=== PATIENT | female | born 1960 | race Caucasian/White ===

== ENCOUNTER 2023-03-19 08:41 | Outpatient (OUT) | payer BC, SELFPAY ==
--- NOTE | 2023-03-19 08:43 | VEIN_ITS ---
Patient: MAVIS PICKARD Exam Date: 03/19/2023 : 1960 Gender:F Ordering : DAVID AMAYA Admission #: [id number] Family : Order #: [id number] CLICK HERE TO VIEW EXAM RADIOLOGY REPORT PROCEDURE: VC EXT VENOUS REFLUX BRO LMTD COMPARISON: None. INDICATIONS: I83.813 Pain due to varicose veins of bilateral legs TECHNIQUE: Duplex imaging of the lower extremity to assess the deep and superficial venous system for the presence of deep or superficial venous incompetence and to document the location and severity of disease. The study includes evaluation of the great saphenous vein (GSV), anterior accessory saphenous vein (AASV) and small saphenous vein (SSV). Patient scanned in reverse Trendelenburg and standing. FINDINGS: RIGHT LOWER EXTREMITY: Saphenofemoral Junction Reflux: Yes 8.3mm 3.4 sec GSV: Diam (mm) Reflux/ Time (sec) Proximal Thigh 8.1 Yes 1.0 Mid Thigh 9.9 Yes 3.7 Distal Thigh 4.8 Yes 0.3 Prox Calf 4.3 Yes 1.4 Mid Calf 4.4 Yes 0.7 Saphenopopliteal Junction Reflux: 5.9mm Yes 0.6 SSV: Proximal Calf 5.7 Yes 0.5 Mid Calf 4.3 Yes 0.2 AASV: Proximal Thigh 6.5 Yes 0.7 Mid Thigh 8.0 Yes 3.6 Distal Thigh Thrombi: No acute or chronic thrombus. Compressibility: Normal. Flow: Mild to moderate deep venous reflux. Preforator: Mid medial lower leg 5.6 mm with 0.7s reflux. Mid medial thigh 8.7 mm with 3.8s reflux. Dist med lower leg 3.7 mm with 2.0s reflux. Tech Note: Incompetent varicose vein distal medial lower leg posterior to wound 12.3 mm with 1.7s reflux. Proximal medial lower leg varicose vein measures 10.7 mm with 3.8s reflux. Varicose vein mid lateral lower leg measures 4.5 mm with 0.6s reflux. Proximal lateral lower leg varicose vein measures 9.1 mm with 1.2s reflux. Tortuous varicose vein arising from SFJ. LEFT LOWER EXTREMITY: Saphenofemoral Junction Reflux: Yes 8.2 mm 1.4 sec GSV: Diam (mm) Reflux/Time (sec) Proximal Thigh 7.4 Yes 2.2 Mid Thigh 4.3 Yes 2.4 Distal Thigh 5.2 Yes 0.7 Prox Calf 4.4 Yes 2.4 Mid Calf 3.3 Yes 0.8 Saphenopopliteal Junction Relux: 4.1 mm Yes 0.3 SSV: Proximal Calf 4.4 Yes 0.3 Mid Calf 3.4 No AASV: Proximal Thigh 5.9 Yes 3.1 Mid Thigh 3.6 Yes 0.3 Distal Thigh Thrombi: No acute or chronic thrombus. Compressibility: Normal. Flow: Mild deep venous reflux. 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 Tech Note: Incompetent varicose vein proximal medial lower leg measures 4.4 mm with 0.6s reflux. Distal anterior thigh varicose vein measures 3.1 mm with 0.3s reflux. Lateral knee varicose vein measures 3.4 mm with 2.0s reflux. CONCLUSION: 1. Abnormally dilated and incompetent bilateral great saphenous veins, bilateral anterior accessory saphenous veins. 2. Multiple abnormally dilated and incompetent branch saphenous varicosities. 3. Bilateral prominent and incompetent office support specialist veins. Dictated by: Abrahan Danielson M.D. on 03/19/2023 at 10:00 Approved by: Abrahan Danielson M.D. on 03/19/2023 at 10:31
--- NOTE | 2023-03-19 08:43 | VEIN_ITS ---
Patient: MAVIS PICKARD Exam Date: 03/19/2023 : 1960 Gender:F Ordering : DAVID AMAYA Admission #: [id number] Family : DR JEFFREY REYNA M.D. Order #: [id number] CLICK HERE TO VIEW EXAM RADIOLOGY REPORT PROCEDURE: FACILITY EST COMPREHENSIVE VEIN CENTER - OFFICE VISIT INITIAL COMPARISON: None. PROGRESS NOTES: [age] year old female who presents with a 15 year history of aching, burning sensation, leg heaviness, dull pain, dilated bulging veins, edema, and reoccurring wound. The patient's right leg symptoms are worse than the left. There has been a progression of symptoms. This increases with prolonged leg dependency. The patient describes an improvement with rest, elevation, exercise, sports oculus, and [id number] medications. The patient denies any signs and symptoms to suggest arterial ischemia. The patient describes a family history of varicose veins. The patient has drinking and smoking history of : Occasional alcohol consumption; no tobacco use. Patient has a past medical history significant for asthma, type 2 diabetes mellitus. The patient denies a history of deep venous thrombus or pulmonary embolus. See separate history and physical for medication list. No prior treatment for varicose or spider veins. Current long-term use of compression stockings. After review of nurse notes, history and physical exam I discussed at length the pathophysiology of venous hypertension and possible treatments, therapies and strategies available. We discussed at length the importance of elevating the lower extremities above the level of the heart, increased physical activity and compression stocking use. Ultrasound venous reflux study performed today was discussed at length with the patient. The report demonstrates markedly dilated and incompetent bilateral great saphenous veins, bilateral anterior accessory saphenous veins, right leg pizza chef veins, and numerous branch saphenous varicosities bilaterally. PHYSICAL EXAM: The right leg demonstrates numerous large varicosities, multiple spider veins, is scabbed over reoccurring wound just above ankle; no open ulceration, mild edema, mild skin discoloration. The left leg demonstrates several varicosities, several spider veins, no ulceration, mild edema, no skin discoloration. Both thighs, legs and feet were symmetrically warm to the touch. Good posterior tibial and dorsalis pedis pulses were present bilaterally. VEIN/[facility] Facility EST Comprehensive IMPRESSION: 1. Bilateral lower extremity venous insufficiency 2. Bilateral lower extremity varicose veins 3. Mild bilateral lower extremity subcutaneous edema 4. No flow significant arterial disease 5. CEAP C5, EC, AP, [place] PLAN: 1. Continued use of compression stockings 2. Elevated legs and increased physical activity symptomatic relief 3. Endovenous laser ablation of right great saphenous, left great saphenous, right anterior accessory saphenous, left anterior accessory saphenous, right pizza chef veins if not closed during treatment of GSV or SSV. 4. Microfoam chemical lesion of incompetent branch saphenous varicosities bilaterally. 5. Sclerotherapy of reticular and spider veins bilaterally. Nurse notes, history and physical were reviewed and confirmed, see attached forms. The nurse was present throughout the physical exam and consultation Dictated by: Abrahan Danielson M.D. on 03/19/2023 at 10:39 Approved by: Abrahan Danielson M.D. on 03/19/2023 at 10:47
== END 2023-03-19 08:42 | disposition home or self-care (01) ==
PROVIDERS: PCP Nurse Practitioner Adult Health; Visit Provider Nurse Practitioner Adult Health
DX: I83.813 Varicose veins of bilateral lower extremities with pain (principal)
CPT/HCPCS: 93970; G0463

== ENCOUNTER 2023-04-04 07:23 | Outpatient (OUT) | payer BC, SELFPAY ==
--- NOTE | 2023-04-04 07:36 | VEIN_ITS ---
[address] [address] Patient Name: MAVIS PICKARD MRN: [id number] date: 1960 Sex: F Assigned Patient Location: Current Patient Location: Accession/Order Number: [id number] Exam Date: 04/04/2023 07:40 Report Date: 04/04/2023 08:31 At the request of: JEFFREY REYNA Procedure: VC Endovenous Ablation 1VeinRT EXAMINATION: VC Endovenous Ablation 1Vein, right great saphenous vein HISTORY: I83.813 Pain due to varicose veins of bilateral legs COMPARISON: No relevant comparison available. TECHNIQUE: The risks and benefits of the procedure had been previously discussed, and were rediscussed at length. Informed written consent was obtained. Alie Oakes and Brandt Delacruz assisted. Time out procedure was performed. The right lower extremity was prepared and draped in the usual sterile fashion to allow knee flexion in the sterile field. Duplex ultrasound probe was draped in a sterile cover, sterile transmission gel was used. Venous mapping was performed with the areas of dilation and large tributaries marked. The total length was 20 cm from the entry distal thigh to 3 cm below the saphenofemoral junction. The diameter of the greater saphenous vein ranged from 8-10 mm. A 30 gauge needle and 1% buffered lidocaine was used to anesthetize the entry site. A 4 mm incision was made with a scalpel and the saphenous vein was entered percutaneously under direct ultrasound guidance with a micropuncture set, a single stick was successful in gaining access. A micro-guide wire was inserted and the needle removed. A micro-set including a dilator was inserted over the microwire and the needle and dilator were removed. A 0.018 guide wire was inserted through the micro-set and threaded through the saphenous vein to the saphenofemoral junction. The dilator was removed and an introducer sheath was inserted over the wire until the end of the sheath entered the saphenofemoral junction. The dilator and wire were removed and the 600 micron fiber was introduced and placed and positioned so that it extended beyond the sheath and was 3 cm peripheral to the saphenofemoral femoral junction. Final position of the fiber was determined by ultrasound guidance and duplex imaging. Tumescent anesthetic was delivered by ultrasound guidance. 150 cc of fluid was delivered along the entire course of the saphenous vein. The solution consisted of 1000 cc of normal saline with 40 mL of 1% lidocaine and 20 mL of sodium bicarbonate. A final positioning check was made. The energy source was turned on by means of the foot pedal and the fiber and sheath were withdrawn. The total number of Joules delivered was 1146. The laser was active for 143 seconds under continuous pulse, average laser use of 8 J. Laser start time 8:19 AM 04/04/2023 . Laser stop time 8:21 AM 04/04/2023 . A duplex ultrasound revealed compressibility and flow at the saphenofemoral junction immediately after the procedure. Hemostasis at the access site was achieved. The skin incision of the saphenous vein was closed with a 4 x 4. A compression stocking was applied. Postop instructions were given. A follow up appointment was recommended and scheduled. The patient tolerated the procedure well and was discharged in good condition . VEIN/VC Endovenous Ablation 1VeinRT IMPRESSION: Technically successful endovenous laser ablation of the right great saphenous vein Electronically authenticated by: JEFFREY REYNA Date: 04/04/2023 08:31
[2023-04-04] MEDS: 0.9 % SODIUM CHLORIDE 500 ML, LIDOCAINE HCL 20 ML, SODIUM BICARBONATE 10 MEQ INJ (07:55)
[2023-04-04] MEDS: LIDOCAINE HCL 10 ML, SODIUM BICARBONATE 1 MEQ INJ (07:55)
== END 2023-04-04 07:24 | disposition home or self-care (01) ==
LOC: VC 07:23
PROVIDERS: PCP Nurse Practitioner Adult Health; Visit Provider Radiology Diagnostic Radiology
DX: I83.813 Varicose veins of bilateral lower extremities with pain (principal)
CPT/HCPCS: 36478

== ENCOUNTER 2023-04-09 07:32 | Outpatient (OUT) | payer BC, SELFPAY ==
--- NOTE | 2023-04-09 | VEIN_ITS ---
Patient: MAVIS PICKARD Exam Date: 04/09/2023 : 1960 Gender:F Ordering : DR MAGEN PRICE M.D. Admission #: [id number] Family : Order #: [id number] CLICK HERE TO VIEW EXAM RADIOLOGY REPORT PROCEDURE: VC EXT VENOUS RT LMTD COMPARISON: None. INDICATIONS: Phlebitis of superficial veins of rt lower extremity I80.01 TECHNIQUE: Lower extremity tsang scale and Duplex Doppler evaluation of the deep venous system from the inguinal ligament through the calf veins. FINDINGS: REGION: Right lower extremity. THROMBI: Negative for DVT. Heat induced thrombus in right GSV 2.4 cm from SFJ and extends to mid thigh just distal to customer service rep. COMPRESSIBILITY: Non-compressible segments corresponding to thrombus. FLOW: Absent flow corresponding to thrombus CONCLUSION: Post ablation occlusion of the right great saphenous vein with heat induced thrombus 2.4 cm from the saphenofemoral junction Dictated by: Magen Price MD on 04/09/2023 at 07:51 Approved by: Magen Price MD on 04/09/2023 at 07:52
--- NOTE | 2023-04-09 | VEIN_ITS ---
Patient: MAVIS PICKARD Exam Date: 04/09/2023 : 1960 Gender:F Ordering : DR MAGEN PRICE M.D. Admission #: [id number] Family : Order #: [id number] CLICK HERE TO VIEW EXAM RADIOLOGY REPORT PROCEDURE: VC FACILITY EST LMTD VEIN CENTER - OFFICE VISIT FOLLOW UP COMPARISON: None. PROGRESS NOTES: The patient reports some mild discomfort of the medial right thigh following intravenous laser ablation of right great saphenous vein. The patient did not require oral analgesics. The patient has worn her compression stocking. The patient has followed our recommendations to walk 20-30 minutes once or twice per day since the procedure. Physical exam demonstrates 3 areas of mild bruising ranging 1-2 cm in diameter along the medial right thigh likely related to insertion site and tumescent injection. No areas of erythema or warmth. No evidence of cellulitis, thrombophlebitis or active ulceration Review of the ultrasound performed the same day demonstrates occlusive thrombus extending throughout the treated right great saphenous vein with heat induced thrombus 2.4 cm from the saphenofemoral junction. The patient expressed a desire to proceed with treatment of incompetent left great saphenous vein. VEIN/VC Facility EST LMTD IMPRESSION: 1. Successful ablation of the right great saphenous vein 2. Persistent incompetent left great saphenous vein. PLAN: Intravenous laser ablation left great saphenous vein Nurse notes, history and physical were reviewed and confirmed, see attached forms. The nurse was present throughout the physical exam and consultation Dictated by: Magen Price MD on 04/09/2023 at 07:56 Approved by: Magen Price MD on 04/09/2023 at 07:58
== END 2023-04-09 07:33 | disposition home or self-care (01) ==
LOC: VC 07:32
PROVIDERS: PCP Nurse Practitioner Adult Health; Visit Provider Radiology Diagnostic Radiology
DX: I80.01 Phlebitis and thrombophlebitis of superficial vessels of right lower extremity (principal)
CPT/HCPCS: 93971; G0463

== ENCOUNTER 2023-04-23 07:33 | Outpatient (OUT) | payer BC, SELFPAY ==
--- NOTE | 2023-04-23 07:34 | VEIN_ITS ---
The [address] [address] Patient Name: MAVIS PICKARD MRN: [id number] date: 1960 Sex: F Assigned Patient Location: Current Patient Location: Accession/Order Number: [id number] Exam Date: 04/23/2023 07:30 Report Date: 04/23/2023 08:43 At the request of: JEFFREY REYNA Procedure: VC Endovenous Ablation 1VeinLT EXAMINATION: VC Endovenous Ablation 1VeinLT HISTORY: Pain due to varicose veins of bilateral legs I83.813 The risks and benefits of the procedure had been previously discussed, and were rediscussed at length. Informed written consent was obtained. Brandt Delacruz RN and Alie Tucker RDMS assisted. Time out procedure was performed. The left lower extremity was prepared and draped in the usual sterile fashion to allow knee flexion in the sterile field. Duplex ultrasound probe was draped in a sterile cover, sterile transmission gel was used. Venous mapping was performed with the areas of dilation and large tributaries marked. The total length was 63 cm from the entry 3 cm above the ankle to 3 cm below the Saphenofemoral junction. The diameter of the left great saphenous vein ranged from 7.4 mm. A 30 gauge needle and 1% buffered lidocaine was used to anesthetize the entry site. A 4 mm incision was made with a scalpel and the saphenous vein was entered percutaneously under direct ultrasound guidance with a micropuncture set, a single stick was successful in gaining access. A micro-guide wire was inserted and the needle removed. A micro-set including a dilator was inserted over the microwire and the needle and dilator were removed. A guide wire was inserted through the micro-set and guided through the saphenous vein to the saphenofemoral junction. The dilator was removed and an introducer sheath was inserted over the wire until the end of the sheath entered the saphenofemoral junction. The dilator and wire were removed and the 600 micron fiber was introduced and placed and positioned so that it extended beyond the sheath and was 3 cm distal to the saphenofemoral or saphenopopliteal junction. Final position of the fiber was determined by ultrasound guidance and duplex imaging. Tumescent anesthetic was delivered by ultrasound guidance. 325 cc of fluid was delivered along the entire course of the saphenous vein. The solution consisted of 1000 cc of normal saline with 40 mL of 1% lidocaine and 20 mL of sodium bicarbonate. A final positioning check was made. The energy source was turned on by means of the foot pedal and the fiber and sheath were withdrawn. The total number of Joules delivered was 3004. The laser was active for 376 seconds under continuous pulse, average laser use of 8 J. Laser start time 8:24 AM, 04/23/2023. Laser stop time 8:30 AM, 04/23/2023. A duplex ultrasound revealed compressibility and flow at the saphenofemoral junction immediately after the procedure. Hemostasis at the access site was achieved. The skin incision of the saphenous vein was closed with a 4 x 4. A compression stocking was applied. Postop instructions were given. A follow up appointment was recommended and scheduled. The patient tolerated the procedure well. Electronically authenticated by: ABDIAS BAR Date: 04/23/2023 08:43
[2023-04-23] MEDS: LIDOCAINE HCL 1% 100 MG/10 ML MDV INJ (07:43)
[2023-04-23] MEDS: 0.9 % SODIUM CHLORIDE 500 ML, LIDOCAINE HCL 20 ML, SODIUM BICARBONATE 10 MEQ INJ (07:44)
== END 2023-04-23 07:34 | disposition home or self-care (01) ==
LOC: VC 07:33
PROVIDERS: PCP Nurse Practitioner Adult Health; Visit Provider Radiology Diagnostic Radiology
DX: I83.813 Varicose veins of bilateral lower extremities with pain (principal)
CPT/HCPCS: 36478

== ENCOUNTER 2023-04-30 09:46 | Outpatient (OUT) | payer BC, SELFPAY ==
--- NOTE | 2023-04-30 | VEIN_ITS ---
Patient: MAVIS PICKARD Exam Date: 04/30/2023 : 1960 Gender:F Ordering : DR MAGEN PRICE M.D. Admission #: [id number] Family : Order #: [id number] CLICK HERE TO VIEW EXAM RADIOLOGY REPORT PROCEDURE: VC EXT VENOUS LT LIMITED COMPARISON: None. INDICATIONS: Phlebitis of superficial veins of lt lower extremity I80.02 TECHNIQUE: Lower extremity tsang scale and Duplex Doppler evaluation of the deep venous system from the inguinal ligament through the calf veins. FINDINGS: REGION: Left lower extremity. THROMBI: Negative for DVT. Heat induced thrombus in left GSV 2.8 cm from SFJ and extends to distal lower leg. COMPRESSIBILITY: Non-compressible segments corresponding to thrombus. FLOW: Absent flow corresponding to thrombus CONCLUSION: Post ablation occlusion of the left great saphenous vein with heat induced thrombus 2.8 cm from the saphenofemoral junction Dictated by: Magen Price MD on 04/30/2023 at 10:24 Approved by: Magen Price MD on 04/30/2023 at 10:25
--- NOTE | 2023-04-30 | VEIN_ITS ---
Patient: MAVIS PICKARD Exam Date: 04/30/2023 : 1960 Gender:F Ordering : DR MAGEN PRICE M.D. Admission #: [id number] Family : Order #: [id number] CLICK HERE TO VIEW EXAM RADIOLOGY REPORT PROCEDURE: [facility] EST LMTD VEIN CENTER - OFFICE VISIT FOLLOW UP [facility] PROGRESS NOTES: The patient reports no significant problems following intravenous laser ablation of the left great saphenous vein. The patient has worn compression stockings. There has been interval reduction in varicosities. The patient has followed our recommendations to walk 20-30 minutes once or twice per day since the procedure. Physical exam demonstrates multiple areas of bruising related to the procedure. The incision is closed. No areas of erythema or warmth to suggest cellulitis or thrombophlebitis. No active ulceration Review of the ultrasound performed the same day demonstrates occlusive thrombus extending throughout the treated left great saphenous vein with heat induced thrombus 2.8 cm from the saphenofemoral junction. The patient expressed a desire to proceed with treatment of incompetent anterior accessory saphenous veins. VEIN/[facility] EST LMTD IMPRESSION: 1. Successful ablation of the left great saphenous vein 2. Persistent incompetent bilateral anterior accessory saphenous vein. PLAN: Intravenous laser ablation right anterior accessory saphenous vein Nurse notes, history and physical were reviewed and confirmed, see attached forms. The nurse was present throughout the physical exam and consultation Dictated by: Magen Price MD on 04/30/2023 at 10:45 Approved by: Magen Price MD on 04/30/2023 at 10:53
== END 2023-04-30 09:47 | disposition home or self-care (01) ==
LOC: VC 09:46
PROVIDERS: PCP Nurse Practitioner Adult Health; Visit Provider Radiology Diagnostic Radiology
DX: I80.02 Phlebitis and thrombophlebitis of superficial vessels of left lower extremity (principal)
CPT/HCPCS: 93971; G0463

== ENCOUNTER 2023-06-04 07:35 | Outpatient (OUT) | payer BC, SELFPAY ==
--- NOTE | 2023-06-04 | VEIN_ITS ---
[address] [address] Patient Name: MAVIS PICKARD MRN: [id number] date: 1960 Sex: F Assigned Patient Location: Current Patient Location: Accession/Order Number: [id number] Exam Date: 06/04/2023 07:40 Report Date: 06/04/2023 08:44 At the request of: JEFFREY REYNA Procedure: VC Endovenous Ablation 1VeinRT EXAMINATION: VC Endovenous Ablation 1VeinRT HISTORY: Pain due to varicose veins of bilateral legs I83.813 COMPARISON: No relevant comparison available. TECHNIQUE: The risks and benefits of the procedure had been previously discussed, and were rediscussed at length. Informed written consent was obtained. Ander Washington and Brandt Delacruz assisted. Time out procedure was performed. The right lower extremity was prepared and draped in the usual sterile fashion to allow knee flexion in the sterile field. Duplex ultrasound probe was draped in a sterile cover, sterile transmission gel was used. Venous mapping was performed with the areas of dilation and large tributaries marked. The total length was 14 cm from the entry mid thigh to 3 cm below the saphenofemoral junction. The diameter of the anterior accessory saphenous vein ranged from 4-8 mm. A 30 gauge needle and 1% buffered lidocaine was used to anesthetize the entry site. A 4 mm incision was made with a scalpel and the saphenous vein was entered percutaneously under direct ultrasound guidance with a micropuncture set, a single stick was successful in gaining access. A micro-guide wire was inserted and the needle removed. A micro-set including a dilator was inserted over the microwire and the needle and dilator were removed. A 0.018 guide wire was inserted through the micro-set and threaded through the saphenous vein to the saphenofemoral junction. The dilator was removed and an introducer sheath was inserted over the wire until the end of the sheath entered the saphenofemoral junction. The dilator and wire were removed and the 600 micron fiber was introduced and placed and positioned so that it extended beyond the sheath and was 3 cm peripheral to the saphenofemoral femoral junction. Final position of the fiber was determined by ultrasound guidance and duplex imaging. Tumescent anesthetic was delivered by ultrasound guidance. 125 cc of fluid was delivered along the entire course of the saphenous vein. The solution consisted of 1000 cc of normal saline with 40 mL of 1% lidocaine and 20 mL of sodium bicarbonate. A final positioning check was made. The energy source was turned on by means of the foot pedal and the fiber and sheath were withdrawn. The total number of Joules delivered was 780. The laser was active for 98 seconds under continuous pulse, average laser use of 8 J. Laser start time 8:18 AM 06/04/2023 . Laser stop time 820AM 06/04/2023. A duplex ultrasound revealed compressibility and flow at the saphenofemoral junction immediately after the procedure. Hemostasis at the access site was achieved. The skin incision of the saphenous vein was closed with a 4 x 4. A compression stocking was applied. Postop instructions were given. A follow up appointment was recommended and scheduled. The patient tolerated the procedure well and was discharged in good condition . VEIN/VC Endovenous Ablation 1VeinRT IMPRESSION: Technically successful endovenous laser ablation of the right anterior accessory saphenous vein Electronically authenticated by: JEFFREY REYNA Date: 06/04/2023 08:44
[2023-06-04] MEDS: LIDOCAINE HCL 1% 100 MG/10 ML MDV INJ (07:46)
[2023-06-04] MEDS: 0.9 % SODIUM CHLORIDE 500 ML, LIDOCAINE HCL 20 ML, SODIUM BICARBONATE 10 MEQ INJ (07:46)
== END 2023-06-04 07:36 | disposition home or self-care (01) ==
LOC: VC 07:35
PROVIDERS: PCP Radiology Diagnostic Radiology; Visit Provider Radiology Diagnostic Radiology
DX: I83.813 Varicose veins of bilateral lower extremities with pain (principal)
CPT/HCPCS: 36478

== ENCOUNTER 2023-06-13 08:00 | Outpatient (OUT) | payer BC, SELFPAY ==
--- NOTE | 2023-06-13 08:03 | VEIN_ITS ---
Patient Name: MAVIS PICKARD MR#: [id number] : 1960 Exam Date: 06/13/2023 Ordering Doctor: DR MAGEN PRICE M.D. RADIOLOGY REPORT PROCEDURE: VC EXT VENOUS RT LMTD COMPARISON: VC EXT VENOUS RT LMTD, 04/09/2023. INDICATIONS: I80.01 Phlebitis of superficial veins of rt lower extremity TECHNIQUE: Lower extremity tsang scale and Duplex Doppler evaluation of the deep venous system from the inguinal ligament through the calf veins. FINDINGS: REGION: Right lower extremity. THROMBI: Negative for DVT. Heat induced thrombus visualized 1.4 cm fromt the SFJ. The heat induced thrombus extends from groin to mid thigh. COMPRESSIBILITY: Non-compressible segments corresponding to thrombus FLOW: Areas of absent flow. CONCLUSION: Post ablation occlusion of the right anterior accessory saphenous vein with heat induced thrombus 1.4 cm from the saphenofemoral junction Dictated by: Magen Price MD on 06/13/2023 at 09:13 Approved by: Magen Price MD on 06/13/2023 at 09:13
--- NOTE | 2023-06-13 08:03 | VEIN_ITS ---
Patient Name: MAVIS PICKARD MR#: [id number] : 1960 Exam Date: 06/13/2023 Ordering Doctor: DR MAGEN PRICE M.D. RADIOLOGY REPORT PROCEDURE: [facility] EST LMTD VEIN CENTER - OFFICE VISIT FOLLOW UP COMPARISON: [facility] EST LMTD, 04/30/2023. [facility] EST LMTD, 04/09/2023. PROGRESS NOTES: The patient reports no significant problems following intravenous laser ablation of the right anterior accessory saphenous vein. The patient did not require oral analgesics. The patient has worn her compression stockings. The patient has tried exercises to the best of her ability. Physical exam demonstrates no significant bruising. No erythema warmth to suggest cellulitis or thrombophlebitis. No active ulceration. The thrombosed right anterior accessory saphenous vein cannot be palpated. Review of the ultrasound performed the same day demonstrates occlusive thrombus extending throughout the treated right anterior accessory saphenous vein with heat induced thrombus 1.4 cm from the saphenofemoral junction. The patient expressed a desire to proceed with treatment of incompetent left anterior accessory saphenous vein. VEIN/[facility] EST LMTD IMPRESSION: 1. Successful ablation of the right anterior accessory saphenous vein 2. Persistent incompetent left anterior accessory saphenous vein. PLAN: Intravenous laser ablation left anterior accessory saphenous vein Nurse notes, history and physical were reviewed and confirmed, see attached forms. The nurse was present throughout the physical exam and consultation Dictated by: Magen Price MD on 06/13/2023 at 09:45 Approved by: Magen Price MD on 06/13/2023 at 09:47
== END 2023-06-13 08:01 | disposition home or self-care (01) ==
LOC: VC 08:00
PROVIDERS: PCP Radiology Diagnostic Radiology; Visit Provider Radiology Diagnostic Radiology
DX: I80.01 Phlebitis and thrombophlebitis of superficial vessels of right lower extremity (principal)
CPT/HCPCS: 93971; G0463

== ENCOUNTER 2023-07-11 12:49 | Outpatient (OUT) | payer BC, SELFPAY ==
--- NOTE | 2023-07-11 12:51 | VEIN_ITS ---
The [address] [address] Patient Name: MAVIS PICKARD MRN: [id number] date: 1960 Sex: F Assigned Patient Location: Current Patient Location: Accession/Order Number: [id number] Exam Date: 07/11/2023 12:55 Report Date: 07/11/2023 14:03 At the request of: JEFFREY REYNA Procedure: VC Endovenous Ablation 1VeinLT EXAMINATION: VC Endovenous Ablation 1VeinLT HISTORY: I83.813 Bilateral painful varicose veins The risks and benefits of the procedure had been previously discussed, and were rediscussed at length. Informed written consent was obtained. Brandt Delacruz RN and Stacie Pulido RDMS, RVT assisted. Time out procedure was performed. The left lower extremity was prepared and draped in the usual sterile fashion to allow knee flexion in the sterile field. Duplex ultrasound probe was draped in a sterile cover, sterile transmission gel was used. Venous mapping was performed with the areas of dilation and large tributaries marked. The total length was 14 cm from the entry mid-upper thigh to 3 cm below the Saphenofemoral junction. The diameter of the left anterior accessory saphenous vein ranged from 5.9 mm. A 30 gauge needle and 1% buffered lidocaine was used to anesthetize the entry site. A 4 mm incision was made with a scalpel and the saphenous vein was entered percutaneously under direct ultrasound guidance with a micropuncture set, a single stick was successful in gaining access. A micro-guide wire was inserted and the needle removed. A micro-set including a dilator was inserted over the microwire and the needle and dilator were removed. A guide wire was inserted through the micro-set and guided through the saphenous vein to the saphenofemoral junction. The dilator was removed and an introducer sheath was inserted over the wire until the end of the sheath entered the saphenofemoral junction. The dilator and wire were removed and the 600 micron fiber was introduced and placed and positioned so that it extended beyond the sheath and was 3 cm distal to the saphenofemoral or saphenopopliteal junction. Final position of the fiber was determined by ultrasound guidance and duplex imaging. Tumescent anesthetic was delivered by ultrasound guidance. 100 cc of fluid was delivered along the entire course of the saphenous vein. The solution consisted of 1000 cc of normal saline with 40 mL of 1% lidocaine and 20 mL of sodium bicarbonate. A final positioning check was made. The energy source was turned on by means of the foot pedal and the fiber and sheath were withdrawn. The total number of Joules delivered was 732. The laser was active for 92 seconds under continuous pulse, average laser use of 8 J. Laser start time 1:28 PM, 07/11/2023. Laser stop time 1:30 PM, 07/11/2023. A duplex ultrasound revealed compressibility and flow at the saphenofemoral junction immediately after the procedure. Hemostasis at the access site was achieved. The skin incision of the saphenous vein was closed with a 4 x 4. A compression stocking was applied. Postop instructions were given. A follow up appointment was recommended and scheduled. The patient tolerated the procedure well. Electronically authenticated by: ABDIAS BAR Date: 07/11/2023 14:03
[2023-07-11] MEDS: 0.9 % SODIUM CHLORIDE 500 ML, LIDOCAINE HCL 20 ML, SODIUM BICARBONATE 10 MEQ INJ (13:11)
[2023-07-11] MEDS: LIDOCAINE HCL 1% 100 MG/10 ML MDV INJ (13:11)
== END 2023-07-11 12:50 | disposition home or self-care (01) ==
LOC: VC 12:50
PROVIDERS: PCP Radiology Diagnostic Radiology; Visit Provider Radiology Diagnostic Radiology
DX: I83.813 Varicose veins of bilateral lower extremities with pain (principal)
CPT/HCPCS: 36478

== ENCOUNTER 2023-07-16 13:24 | Outpatient (OUT) | payer BC, SELFPAY ==
--- NOTE | 2023-07-16 13:25 | VEIN_ITS ---
Patient Name: MAVIS PICKARD MR#: [id number] : 1960 Exam Date: 07/16/2023 Ordering Doctor: DR MAGEN PRICE M.D. RADIOLOGY REPORT PROCEDURE: [facility] EST LMTD VEIN CENTER - OFFICE VISIT FOLLOW UP COMPARISON: [facility] EST LMTD, 06/13/2023. [facility] EST LMTD, 04/30/2023. PROGRESS NOTES: The patient reports no significant problems following intravenous laser ablation of the left anterior accessory saphenous vein. The patient did not require oral analgesics. The patient has worn her compression stocking. The patient has followed our recommendations to walk 20-30 minutes once or twice per day since the procedure. Physical exam demonstrates no significant bruising. The incision site is healed. The left anterior accessory saphenous vein cannot be palpated. No erythema or warmth to suggest cellulitis or thrombophlebitis. No active ulceration Review of the ultrasound performed the same day demonstrates occlusive thrombus extending throughout the treated left anterior accessory saphenous vein. Heat induced thrombus is 1.3 cm from the saphenofemoral junction. No deep vein thrombus. The patient expressed a desire to proceed with treatment of incompetent varicose veins with micro foam chemical ablation. VEIN/[facility] EST LMTD IMPRESSION: 1. Successful ablation of the left anterior accessory saphenous 2. Persistent bilateral incompetent patent varicose veins. PLAN: Micro foam chemical ablation of the right leg Nurse notes, history and physical were reviewed and confirmed, see attached forms. The nurse was present throughout the physical exam and consultation Dictated by: Magen Price MD on 07/16/2023 at 13:43 Approved by: Magen Price MD on 07/16/2023 at 13:45
--- NOTE | 2023-07-16 13:25 | VEIN_ITS ---
Patient Name: MAVIS PICKARD MR#: [id number] : 1960 Exam Date: 07/16/2023 Ordering Doctor: DR MAGEN PRICE M.D. RADIOLOGY REPORT PROCEDURE: VC EXT VENOUS LT LIMITED COMPARISON: VC EXT VENOUS LT LIMITED, 04/30/2023. INDICATIONS: I80.02 Phlebitis of superficial veins of lt lower extremity TECHNIQUE: Lower extremity tsang scale and Duplex Doppler evaluation of the deep venous system from the inguinal ligament through the calf veins. FINDINGS: REGION: Left lower extremity. THROMBI: Negative for DVT. Heat induced thrombus visualized 1.3cm from the SFJ. The heat induced thrombus extends from groin to mid thigh. COMPRESSIBILITY: Non-compressible segments corresponding to thrombus FLOW: Areas of absent flow corresponding to thrombus CONCLUSION: Post ablation occlusion of the left anterior accessory saphenous vein with heat induced thrombus 1.3 cm from the saphenofemoral junction Dictated by: Magen Price MD on 07/16/2023 at 13:39 Approved by: Magen Price MD on 07/16/2023 at 13:39
== END 2023-07-16 13:25 | disposition home or self-care (01) ==
LOC: VC 13:24
PROVIDERS: PCP Radiology Diagnostic Radiology; Visit Provider Radiology Diagnostic Radiology
DX: I80.02 Phlebitis and thrombophlebitis of superficial vessels of left lower extremity (principal)
CPT/HCPCS: 93971; G0463

== ENCOUNTER 2023-07-25 10:47 | Outpatient (OUT) | payer BC, SELFPAY ==
--- NOTE | 2023-07-25 10:49 | VEIN_ITS ---
The [address] [address] Patient Name: MAVIS PICKARD MRN: [id number] date: 1960 Sex: F Assigned Patient Location: Current Patient Location: Accession/Order Number: [id number] Exam Date: 07/25/2023 10:53 Report Date: 07/25/2023 12:03 At the request of: JEFFREY REYNA Procedure: VC INJ Foam Sclerosant WUS FUEL CELL ENGINEER PROCEDURE: VC INJ Foam Sclerosant WUS FUEL CELL ENGINEER HISTORY: Pain due to varicose veins of bilateral legs I83.813 Pre-operative Diagnosis: CEAP class C5 venous insufficiency with pain, tenderness, edema and incompetent branch saphenous vein(s), chronic venous insufficiency right leg secondary to venous incompetence Post-operative Diagnosis: CEAP class C5 venous insufficiency with pain, tenderness, edema and incompetent branch saphenous vein(s), chronic venous insufficiency right leg secondary to venous incompetence Procedure Performed: 1. Ultrasound-guided microfoam chemical ablation with Varithenaregistered 2. Intraoperative ultrasound guidance Physician: Abrahan Danielson M.D. Anesthesia: None Indications for Procedure: 63 year old female. Symptoms including lower extremity pain, swelling, dilated bulging veins, slow healing wound for many years despite conservative medical therapy including medical compression stockings, exercise and analgesics. Prior procedures include endovenous laser ablation. Multiple incompetent varicosities of the right leg. Duplex scan showed reflux and enlarged diameters up to 5 mm. The patient underwent informed consent including management options where the complications of infection, bleeding, pain, and skin injury were discussed. Particular attention was spent discussing thrombus extension and deep vein thrombosis as well as the possibility of pulmonary embolus and treatment with oral or injectable blood thinners. Procedure: The patient walked to the procedure room. All applicable staff donned appropriate apparel. A procedure timeout was performed to confirm correct patient, correct extremity, correct procedure, and correct room set-up including presence of all applicable supplies, devices, and drugs. A duplex ultrasound, performed by myself confirmed the location and incompetence of branch saphenous varicosities and their course was marked on the skin together with the dilated tributaries. The extent of treatment of the vein and the associated varicosities was determined through ultrasound mapping. The skin was prepped and then punctured with a butterfly needle and advanced under ultrasound guidance. The Varithenaregistered canister was activated and the canister was primed and purged as required in the instructions for use. Varithenaregistered was drawn into a sterile syringe. Varithenaregistered was slowly administered at 0.5-1.0 cc/second with close observation by ultrasound of its course in the vessels. Total volume utilized was: 15 mL (10 mL into a 5 mm varicosity of the distal lateral lower leg; 5 mL into a 4 mm varicosity mid lateral lower leg). Following administration of Varithenaregistered the leg was elevated and the patient was asked to repeatedly dorsiflex the ankle to limit flow of Varithenaregistered into perforating veins. Once appropriate spasm had been confirmed in the treated veins, the vascular catheter was removed from the leg and light pressure was applied over the puncture site for hemostasis. The common femoral and deep superficial veins were then evaluated for flow and compressibility prior to dressing placement. The lower extremity was kept elevated at 45 degrees above the horizontal and cording material was applied over the saphenous segments and tributaries to allow for eccentric compression over the target vessels including the targeted saphenous vein(s). A multilayer dressing was applied consisting of foam pads, coban and thigh-high 20-30 mm Hg compression elastic support hose were placed on the patient. The leg was lowered only after compression had been applied and the patient was immediately ambulatory. The patient ambulated 10 minutes under supervision and was without apparent concerns at time of release. Post-care instructions include advising patient to keep post-treatment bandages in place and dry for 48 hours, avoid extended periods of inactivity, avoid heavy exercise for one week, wear compression stockings on the treated leg continuously for two weeks, to walk daily for 10 minutes over the next month. The patient was instructed to take an anti-inflammatory medicine as needed and to follow up for color duplex scan of the Saphenous veins, the treated branch saphenous varicosities, the adjacent deep veins, and additional treatment within 7 days. PERSONNEL: Brandt Delacruz RN Electronically authenticated by: ABRAHAN DANIELSON Date: 07/25/2023 12:03
== END 2023-07-25 10:48 | disposition home or self-care (01) ==
LOC: VC 10:47
PROVIDERS: PCP Radiology Diagnostic Radiology; Visit Provider Radiology Diagnostic Radiology
DX: I83.813 Varicose veins of bilateral lower extremities with pain (principal)
CPT/HCPCS: 36466

== ENCOUNTER 2023-08-03 10:16 | Outpatient (OUT) | payer BC, SELFPAY ==
--- NOTE | 2023-08-03 10:19 | VEIN_ITS ---
Patient Name: MAVIS PICKARD MR#: [id number] : 1960 Exam Date: 08/03/2023 Ordering Doctor: DR MAGEN PRICE M.D. RADIOLOGY REPORT PROCEDURE: [facility] EST LMTD VEIN CENTER - OFFICE VISIT FOLLOW UP COMPARISON: [facility] EST LMTD, 07/16/2023. [facility] EST LMTD, 06/13/2023. PROGRESS NOTES: The patient reports no problems following micro foam ablation incompetent varicose veins. The patient does significant her venous stasis ulceration. The patient has worn compression stocking. The patient has tried exercise. The patient did not require analgesics Physical exam demonstrates scattered thrombosed varicose veins . no areas of erythema to suggest cellulitis or thrombophlebitis. Ulceration Review of the ultrasound performed the same day demonstrates occlusive thrombus extending throughout the treated varicose veins. Bilateral incompetent varicose veins remain. The patient expressed a desire to proceed with treatment of remaining patent incompetent varicose veins. VEIN/[facility] EST LMTD IMPRESSION: 1. Successful ablation of treated right leg incompetent varicose veins 2. Persistent bilateral incompetent varicose veins. PLAN: Micro foam chemical ablation left leg incompetent varicose veins Nurse notes, history and physical were reviewed and confirmed, see attached forms. The nurse was present throughout the physical exam and consultation Dictated by: Magen Price MD on 08/03/2023 at 12:16 Approved by: Magen Price MD on 08/03/2023 at 12:18
--- NOTE | 2023-08-03 10:19 | VEIN_ITS ---
Patient Name: MAVIS PICKARD MR#: [id number] : 1960 Exam Date: 08/03/2023 Ordering Doctor: DR MAGEN PRICE M.D. RADIOLOGY REPORT PROCEDURE: VC EXT VENOUS RT LMTD COMPARISON: VC EXT VENOUS RT LMTD, 06/13/2023. VC EXT VENOUS RT LMTD, 04/09/2023. INDICATIONS: I80.01 Phlebitis of superficial veins of rt lower extremity TECHNIQUE: Lower extremity tsang scale and Duplex Doppler evaluation of the deep venous system from the inguinal ligament through the calf veins. FINDINGS: REGION: Left lower extremity. THROMBI: Negative for DVT. Varithena induced thrombus visualized at mid/med calf and distal/med calf. COMPRESSIBILITY: Non-compressible segments corresponding to thrombus FLOW: Areas of no flow corresponding to thrombus OTHER: Multiple varicose veins remain. The largest remaining vein measures 11.4 mm with0.9s reflux. CONCLUSION: Post ablation occlusion of treated right leg incompetent varicose veins Dictated by: Magen Price MD on 08/03/2023 at 10:57 Approved by: Magen Price MD on 08/03/2023 at 10:58
== END 2023-08-03 10:17 | disposition home or self-care (01) ==
LOC: VC 10:16
PROVIDERS: PCP Radiology Diagnostic Radiology; Visit Provider Radiology Diagnostic Radiology
DX: I80.01 Phlebitis and thrombophlebitis of superficial vessels of right lower extremity (principal)
CPT/HCPCS: 93971; G0463

== ENCOUNTER 2023-08-08 09:51 | Outpatient (OUT) | payer BC, SELFPAY ==
--- NOTE | 2023-08-08 09:53 | VEIN_ITS ---
The [address] [address] Patient Name: MAVIS PICKARD MRN: [id number] date: 1960 Sex: F Assigned Patient Location: Current Patient Location: Accession/Order Number: [id number] Exam Date: 08/08/2023 09:55 Report Date: 08/08/2023 11:31 At the request of: JEFFREY REYNA Procedure: VC INJ Foam Sclerosant WUS POULTRY FEED SUPERVISOR PROCEDURE: VC INJ Foam Sclerosant WUS POULTRY FEED SUPERVISOR HISTORY: Pain due to varicose veins of bilateral legs I83.813 Pre-operative Diagnosis: CEAP class C5 venous insufficiency with pain, tenderness, edema and incompetent branch saphenous vein(s), chronic venous insufficiency left leg secondary to venous incompetence Post-operative Diagnosis: CEAP class C5 venous insufficiency with pain, tenderness, edema and incompetent branch saphenous vein(s), chronic venous insufficiency left leg secondary to venous incompetence Procedure Performed: 1. Ultrasound-guided microfoam chemical ablation with Varithenaregistered 2. Intraoperative ultrasound guidance Physician: Abrahan Danielson M.D. Anesthesia: None Indications for Procedure: 63 year old female. Symptoms including lower extremity pain, swelling, throbbing, chronic wound for many years despite conservative medical therapy including medical compression stockings, exercise and analgesics. Prior procedures include endovenous laser ablation and microfoam chemical ablation. Multiple incompetent varicosities of the left leg. Duplex scan showed reflux and enlarged diameters up to 6 mm. The patient underwent informed consent including management options where the complications of infection, bleeding, pain, and skin injury were discussed. Particular attention was spent discussing thrombus extension and deep vein thrombosis as well as the possibility of pulmonary embolus and treatment with oral or injectable blood thinners. Procedure: The patient walked to the procedure room. All applicable staff donned appropriate apparel. A procedure timeout was performed to confirm correct patient, correct extremity, correct procedure, and correct room set-up including presence of all applicable supplies, devices, and drugs. A duplex ultrasound, performed by myself confirmed the location and incompetence of branch saphenous varicosities and their course was marked on the skin together with the dilated tributaries. The extent of treatment of the vein and the associated varicosities was determined through ultrasound mapping. The skin was prepped and then punctured with a butterfly needle and advanced under ultrasound guidance. The Varithenaregistered canister was activated and the canister was primed and purged as required in the instructions for use. Varithenaregistered was drawn into a sterile syringe. Varithenaregistered was slowly administered at 0.5-1.0 cc/second with close observation by ultrasound of its course in the vessels. Total volume utilized was: 12 mL (5 mL into a 5 mm varicosity distal medial lower leg; 7 mL into a 6 mm varicosity proximal medial lower leg). Following administration of Varithenaregistered the leg was elevated and the patient was asked to repeatedly dorsiflex the ankle to limit flow of Varithenaregistered into perforating veins. Once appropriate spasm had been confirmed in the treated veins, the vascular catheter was removed from the leg and light pressure was applied over the puncture site for hemostasis. The common femoral and deep superficial veins were then evaluated for flow and compressibility prior to dressing placement. The lower extremity was kept elevated at 45 degrees above the horizontal and cording material was applied over the saphenous segments and tributaries to allow for eccentric compression over the target vessels including the targeted saphenous vein(s). A multilayer dressing was applied consisting of foam pads, coban and thigh-high 20-30 mm Hg compression elastic support hose were placed on the patient. The leg was lowered only after compression had been applied and the patient was immediately ambulatory. The patient ambulated 10 minutes under supervision and was without apparent concerns at time of release. Post-care instructions include advising patient to keep post-treatment bandages in place and dry for 48 hours, avoid extended periods of inactivity, avoid heavy exercise for one week, wear compression stockings on the treated leg continuously for two weeks, to walk daily for 10 minutes over the next month. The patient was instructed to take an anti-inflammatory medicine as needed and to follow up for color duplex scan of the Saphenous veins, the treated branch saphenous varicosities, the adjacent deep veins, and additional treatment within 7 days. PERSONNEL: Brandt Delacruz RN Electronically authenticated by: ABRAHAN DANIELSON Date: 08/08/2023 11:31
--- OUTSIDE RECORDS SUMMARY | 2023-08-08 09:55 | XMS_ITS | CCD ---
Author Name Unknown Address [address] [place] [address] Organization [facility] Care Team Providers Care Starch Cooker Name Role Phone HIGHLANDER, PETER Unavailable Unavailable HIGHLANDER, PETER Unavailable Unavailable WESTJEFFREY V Unavailable Unavailable HIGHLANDER, PETER Unavailable Unavailable MAST, RASHAD Unavailable Unavailable HIGHLANDER, PETER Unavailable Unavailable HIGHLANDER, PETER Unavailable Unavailable HIGHLANDER, PETER Unavailable Unavailable MAST, RASHAD Unavailable Unavailable HIGHLANDER, PETER Unavailable Unavailable HIGHLANDER, PETER Unavailable Unavailable HIGHLANDER, PETER Unavailable Unavailable MAST, RASHAD Unavailable Unavailable HIGHLANDER, PETER Unavailable Unavailable HIGHLANDER, PETER Unavailable Unavailable HIGHLANDER, PETER Unavailable Unavailable MAST, RASHAD Unavailable Unavailable HIGHLANDER, PETER Unavailable Unavailable HIGHLANDER, PETER Unavailable Unavailable JEFFREY REYNA V Unavailable Unavailable ADEFEYISAMARNIE Lopez Unavailable Unavailable HIGHLANDER, PETER Unavailable Unavailable MAST, RASHAD Unavailable Unavailable SANTO QUESADA Unavailable Unavailable MAX GRIGSBY S Unavailable Unavailable SOLA SEALS Unavailable Unavailable Shine, Abrahan Unavailable Unavailable Shine, Abrahan Unavailable Unavailable Shine, Abrahan Unavailable Unavailable MAST, RASHAD Unavailable Unavailable Shine, Abrahan Unavailable Unavailable Shine, Abrahan Unavailable Unavailable Shine, Abrahan Unavailable Unavailable MAST, RASHAD Unavailable Unavailable Christensen, Trupti Unavailable Unavailable Christensen, Trupti Unavailable Unavailable Christensen, Trupti Unavailable Unavailable Christensen, Trupti Unavailable Unavailable Christensen, Trupti Unavailable Unavailable Christensen, Trupti Unavailable Unavailable Christensen, Trupti Unavailable Unavailable Christensen, Trupti Unavailable Unavailable Christensen, Trupti Unavailable Unavailable MAST, RASHAD Unavailable Unavailable MAST, RASHAD Unavailable Unavailable MAST, RASHAD Unavailable Unavailable Mast, Rashad Unavailable Mast, Rashad Unavailable Mast, DO Rashad Primary Care Provider DO Baltazar Strange Attending Provider [phone] Mast, DO Rashad Primary Care Provider Mast, DO Rashad Attending Provider [phone] Mast, DO Rashad Primary Care Provider Hamlet ABRIL Drew Attending Provider Pendleton, DO Rashad Emergency Provider Viki Mcnulty Admitting Unavailable Viki Mcnulty Attending Unavailable Mast, Rashad Primary Care Unavailable Visci, Baltazar Admitting Unavailable Visci, Baltazar Attending Unavailable Mast, Rashad Primary Care Unavailable Mast, Rashad Admitting Unavailable Mast, Rashad Attending Unavailable Mast, Rashad Primary Care Unavailable Pendleton, Rashad Admitting Unavailable Pendleton, Rashad Attending Unavailable Mast, Rashad Primary Care Unavailable VISCI, BALTAZAR A Referring Unavailable VISCI, BALTAZAR A Attending Unavailable Allergies Allergy Classification Reported Allergen(s) Allergy Type Date of Onset Reaction(s) Facility (2 sources) penicillin; Translations: [penicillin] Drug Allergy 04-18-19 UNKNOWN [facility] [place] Repository (1 source) Sulfonamides (Antibiotic) Drug allergy (disorder) 04-18-19 UNKNOWN [facility] [place] Repository (1 source) Sulfamethoxazole; Translations: [sulfamethoxazole ] Drug Allergy [facility] Repository (20 sources) Penicillin V Drug Allergy Unknown [facility] Other (10 sources) sulfaSALAzine Drug Allergy Unknown [facility] Other (3 sources) Sulfonamide Drug allergy Unknown [facility] Other (16 sources) Substance with sulfonamide structure and antibacterial mechanism of action (substance) Drug allergy Unknown [facility] Other (5 sources) Penicillins; Translations: [Penicillins] Allergy to substance 03-19-20 Unknown Reaction [facility] (5 sources) Sulfonamides (Antibiotic); Translations: [Sulfa (Sulfonamide Antibiotics)] Allergy to substance 03-19-20 Unknown Reaction [facility] Medications Current Medications Medication Drug Class(es) Dates Sig (Normalized) Sig (Original) 3 ML semaglutide 1.34 MG/ML Pen Injector [Ozempic] (2 sources) Start: 06-13-2021 inject 1 mg by subcutaneous injection every week Ozempic (1 MG/DOSE) 4 MG/3ML 1 mg Subcutaneous weekly May, Active 3 ML semaglutide 2.68 MG/ML Pen Injector [Ozempic] (14 sources) Start: 10-16-2022 Start: 10-16-2022 inject 2 mg by subcu taneous injection every week Ozempic (2 MG/DOSE) 8 MG/3ML 2 mg Subcutaneous once a week Sep, Active [id number] actuat albuterol 0.09 mg/actuat metered dose inhaler (14 sources) beta2-Adrenergic Agonist Start: 06-15-2018 take 1 puff(s) by inhalation every four hours Albuterol Sulfate (Proair Hfa) 90 mcg/actuation HFA aerosol inhaler Active 2 PUFF INHALATION Q4H June 15, 2018 1:00am ProAir HFA 108 ( 90 Base) MCG/ACT 2 puffs every 4-6 hours prn Inhalation every 4 hrs as needed for 30 days prn Active Albuterol Sulfate (Proair Hfa) 90 mcg/actuation HFA aerosol inhaler (2 sources) Start: 06-15-2018 take 1 puff(s) by inhalation every four hours Albuterol Sulfate (Proair Hfa) 90 mcg/actuation HFA aerosol inhaler Active 2 PUFF INHALATION Q4H June 15, 2018 1:00am atorvastatin 20 mg oral tablet (20 sources) HMG-CoA Reductase Inhibitor take 1 tablet by mouth once daily Atorvastatin Calcium 20 MG TAKE 1 TABLET BY MOUTH EVERY DAY for 90 Active 12 hr buPROPion hydrochloride 150 mg extended release oral tablet (20 sources) Aminoketone take 1 tablet by mouth once daily in the morning buPROPion HCl ER (SR) 150 MG TAKE 1 TABLET BY MOUTH EVERY DAY IN THE MORNING Active busPIRone hydrochloride 30 mg oral tablet (20 sources) Start: 06-15-2018 take 60 mg by mouth once daily Buspirone Active 60 MG PO Daily June 15, 2018 1:00am take 2 tablets by mouth once luan ly busPIRone HCl 30 MG TAKE 2 TABLETS BY MOUTH EVERY DAY Active doxycycline hyclate 100 mg oral capsule (3 sources) Tetracycline-class Drug Start: 06-03-2023 take 100 mg by mouth twice daily Doxycycline Hyclate Active 100 MG PO Twice daily 20 June 03, 2023 12:00am Start: 02-28-2023 End: 03-21-2023 take 100 mg by mouth twice daily Doxycycline Hyclate Discontinued 100 MG PO Twice daily 14 February 28, 2023 12:00am March 21, 2023 9:24am empagliflozin 10 mg oral tablet (20 sources) Sodium-Glucose Cotransporter 2 Inhibitor Start: 03-27-2022 take 1 tablet by mouth once daily Empagliflozin (Jardiance) 10 mg Tablet Active 10 MG PO Daily February 28, 2023 12:00am FLUoxetine 60 mg oral tablet (20 sources) Serotonin Reuptake Inhibitor Start: 06-15-2018 take 60 mg by mouth once daily Fluoxetine Active 60 MG PO Daily June 15, 2018 1:00am 120 actuat fluticasone propionate 0.11 mg/actuat metered dose inhaler (20 sources) Corticosteroid Start: 06-15-2018 take 1 puff(s) by inhalation twice daily Fluticasone Propionate (Flovent Hfa) 110 mcg/actuation HFA aerosol inhaler Active 2 PUFF INHALATION Twice daily June 15, 2018 1:00am take 2 puff(s) by inhalation twi ce daily Flovent HFA 220 MCG/ACT 2 puff Inhalation Twice a day Active Fluticasone Propionate (Flovent Hfa) 110 mcg/actuation HFA aerosol inhaler (2 sources) Start: 06-15-2018 take 1 puff(s) by inhalation twice daily Fluticasone Propionate (Flovent Hfa) 110 mcg/actuation HFA aerosol inhaler Active 2 PUFF INHALATION Twice daily June 15, 2018 1:00am Glucometer (20 sources) Start: 04-25-2017 Start: 04-25-2017 Glucometer as directed Mar, Active 3 ml insulin glargine 100 unt/ml pen injector (20 sources) Insulin Analog Start: 06-15-2018 Insulin Glargi ne (Lantus Solostar U-100 Insulin) 100 unit/mL (3 mL) insulin pen Active 30 UNITS SUBCUT Daily June 15, 2018 1:00am Start: 06-15-2018 Insulin Glargi ne (Lantus Solostar U-100 Insulin) 100 unit/mL (3 mL) insulin pen Active 50 UNITS SUBCUT Daily June 15, 2018 1:00am Lantus SoloStar 100 UNIT/ML INJECT 40 UNITS Subcutaneous once a day Active Lantus SoloStar 100 UNIT/ML INJECT 35 UNITS SUBCUTANEOUSLY TWICE A DAY Active meloxicam 15 mg oral tablet (20 sources) Nonsteroidal Anti-inflammatory Drug Meloxicam 15 MG TAKE 1 TABLET BY MOUTH EVERY DAY NEEDED FOR 30 DAYS for 30 Active 24 hr metFORMIN hydrochloride 500 mg extended release oral tablet (20 sources) Biguanide Start: 05-11-20 take 4 tablets by mouth once daily metFORMIN HCl ER 500 MG 4 tabs Orally Once a day for 30 day(s) Apr, Active Start: 06-15-2018 take 1000 mg by mouth twice da richard Metformin Active 1000 MG PO Twice daily June 15, 2018 1:00am take 2 tablets by mo uth twice daily metFORMIN HCl ER 500 MG TAKE 2 TABLETS BY MOUTH TWICE A DAY Orally Active methylPREDNISolone 4 mg oral tablet (1 source) Corticosteroid Start: 06-03-2023 take 1 tablet by mouth once Methylprednisolone (Medrol (Timoteo)) 4 mg tablets,dose pack Active 0 PO .COMPLEX June 03, 2023 12:00am orally per package directions ondansetron 4 mg oral tablet (14 sources) Serotonin-3 Receptor Antagonist take 1 tablet by mouth once daily Zofran ODT 4 MG 1 tablet on the tongue and allow to dissolve Orally Once a day for 30 days Active OneTouch Ultra 2 w/Device (8 sources) OneTouch Ultra 2 w/Device TEST ONCE DAILY for 30 Active ProAir HFA 108 (90 Base) MCG /ACT (17 sources) ProAir HFA 108 ( 90 Base) MCG/ACT 2 puffs every 4-6 hours prn Inhalation every 4 hrs as needed prn Active ProAir HFA 108 ( 90 Base) MCG/ACT 2 puffs every 4-6 hours prn Inhalation every 4 hrs as needed for 30 days prn Active 0.25 mg, 0.5 mg dose 1.5 ml semaglutide 1.34 mg/ml pen injector (20 sources) Start: 05-22-2022 Ozempic (0.25 or 0.5 MG/DOSE) 2 MG/1.5ML 0.25 mg Subcutaneous once a week Apr, Active Start: 04-11-2021 Ozempic (0.25 or 0.5 MG/DOSE) 2 MG/1.5ML 0.5 mg Subcutaneous once a week Apr, Active Semaglutide (Ozempic) 2 mg/dose (8 mg/3 mL) Pen Injector (2 sources) Start: 02-28-2023 inject 2 mg by subcutaneous injection every week Semaglutide (Ozempic) 2 mg/dose (8 mg/3 mL) Pen Injector Active 2 MG SUBCUT every week February 28, 2023 12:00am Spacer/Aero Chamber Mouthpiece (20 sources) Start: 08-21-2019 Start: 08-21-2019 Spacer/Aero Ch yazan Mouthpiece for 30 days Jul, Active witch haim 500 mg/ml medicated pad (4 sources) Start: 03-19-2021 Witch Haim (P reparation H (Witch Haim)) 50 % pads, medicated Active 1 PAD TOPICAL Twice daily March 19, 2021 12:00am Completed/Discontinued Medications Medication Drug Class(es) Dates Sig (Normalized) Sig (Original) Ketorolac (20 sources) Nonsteroidal Anti-inflammatory Drug, Cyclooxygenase Inhibitor Start: 09-29-2016 Start: 09-29-2016 Toradol per 15 mg Sep, 60 mg Start: 05-02-2015 Start: 05-02-2015 Toradol per 15 mg Apr, 60 mg Ozempic (0.25 or 0.5 MG/DOSE ) 2 MG/1.5ML (4 sources) Ozempic (0.25 or 0.5 MG/DOSE) 2 MG/1.5ML 0.5 mg Subcutaneous once a week Not-Taking Ozempic (1 MG/DOSE) 2 MG/1.5 ML (11 sources) Start: 06-13-2021 Ozempic (1 MG/ DOSE) 2 MG/1.5ML 1 mg Subcutaneous weekly May, Not-Taking Start: 06-13-2021 Ozempic (1 MG/ DOSE) 2 MG/1.5ML 1 mg Subcutaneous weekly May, Active predniSONE 20 mg oral tablet (7 sources) Start: 05-29-2023 take 2 tablets by mouth every twenty-four hours predniSONE 20 MG 2 tablet Orally Once a day for 5 days Apr, Not-Taking Start: 06-15-2018 End: 02-28-2023 take 40 mg by mouth once daily Prednisone Discontinued 40 MG PO Daily 8 June 15, 2018 1:00am February 28, 2023 11:24am SITagliptin 100 mg oral tablet (7 sources) Dipeptidyl Peptidase 4 Inhibitor Start: 06-15-2018 End: 02-28-2023 take 1 tablet by mouth once daily Sitagliptin Phosphate (Januvia) 100 mg tablet Discontinued 100 MG PO Daily June 15, 2018 1:00am February 28, 2023 11:24am Problems Active Problems Problem Classification Problem Date Documented Date Episodic/Chronic Anxiety disorders (20 sources) Mixed anxiety and depressive disorder; Translations: [Other specified anxiety disorders] Onset: 2 Resolved: 2 Chronic Asthma (20 sources) Asthma; Translations: [Asthma, unspecified] Chronic Chronic obstructive pulmonary disease and bronchiectasis (1 source) Bronchitis; Translations: [Bronchitis, not specified as acute or chronic] 06-03-2023 Episodic Chronic ulcer of skin (13 sources) Chronic ulcer of skin of lower leg; Translations: [Non-pressure chronic ulcer of other part of right lower leg limited to breakdown of skin] Chronic Diabetes mellitus with complications (20 sources) Type 2 diabetes mellitus without complication; Translations: [Type 2 diabetes mellitus with hyperglycemia] Chronic Diabetes mellitus without complication (20 sources) Type 2 diabetes mellitus without complications; Translations: [Type 2 diabetes mellitus without complication] Onset: 7 Resolved: 2 Chronic Disorders of lipid metabolism (20 sources) Hypertriglyceridemia; Translations: [Pure hyperglyceridemia] Chronic Hemorrhoids (4 sources) Bleeding hemorrhoids; Translations: [Unspecified hemorrhoids] 03-19-2021 Episodic Immunizations and screening for infectious disease (2 sources) Encounter for immunization Episodic Mood disorders (3 sources) Dysthymic disorder; Translations: [Depressive disorder] Onset: 2 Resolved: 2 Chronic Osteoarthritis (1 source) Primary osteoarthritis, left ankle and foot; Translations: [PRIMARY OSTEOARTHRITIS LT ANK FOOT] Onset: 7 Chronic Other bone disease and musculoskeletal deformities (1 source) Segmental and somatic dysfunction of cervical region Episodic Other connective tissue disease (14 sources) Dupuytren's contracture; Translations: [Palmar fascial fibromatosis [Dupuytren]] Episodic Other connective tissue disease (2 sources) Palmar fascial fibromatosis [Dupuytren] Episodic Other injuries and conditions due to external causes (1 source) Other injury of unspecified body region, initial encounter Episodic Other lower respiratory disease (1 source) Shortness of breath; Translations: [Shortness of breath] Onset: Episodic Other nervous system disorders (2 sources) Paresthesia of hand ; Translations: [Paresthesia of skin] Episodic Other nervous system disorders (1 source) Paresthesia of skin Episodic Other nutritional; endocrine; and metabolic disorders (19 sources) Body mass index 40+ - severely obese; Translations: [Morbid (severe) obesity due to excess calories] Chronic Other nutritional; endocrine; and metabolic disorders (1 source) Morbid (severe) obesity due to excess calories Chronic Other nutritional; endocrine; and metabolic disorders (2 sources) Obesity; Translations: [Obesity, unspecified] 02-28-2023 Chronic Other nutritional; endocrine; and metabolic disorders (2 sources) Obesity, unspecified; Translations: [Obesity, unspecified] 03-28-2023 Chronic Other skin disorders (2 sources) Hyperpigmentation of skin; Translations: [Disorder of pigmentation, unspecified] 02-28-2023 Episodic Other skin disorders (2 sources) Hemosiderin pigmentation of lower limb due to varicose veins of lower limb; Translations: [Other specified disorders of pigmentation] 02-28-2023 Episodic Other skin disorders (2 sources) Other specified disorders of pigmentation; Translations: [Dyschromia, unspecified] 03-28-2023 Episodic Other skin disorders (2 sources) Disorder of pigmentation, unspecified; Translations: [Dyschromia, unspecified] 03-28-2023 Episodic Other upper respiratory infections (20 sources) Acute sinusitis; Translations: [Acute sinus infection] Episodic Otitis media and related conditions (2 sources) Unspecified Eustachian tube disorder, right ear Episodic Residual codes; unclassified (2 sources) Edema of right lower limb; Translations: [Localized edema] 02-28-2023 Episodic Residual codes; unclassified (2 sources) History finding; Translations: [Other specified health status] 02-28-2023 Episodic Residual codes; unclassified (2 sources) Localized edema; Translations: [Edema] 03-28-2023 Episodic Skin and subcutaneous tissue infections (4 sources) Cellulitis; Translations: [Cellulitis, unspecified] 03-21-2023 Episodic Spondylosis; intervertebral disc disorders; other back problems (1 source) Cervicalgia Episodic Unclassified (4 sources) Inflammatory disorder; Translations: [Inflammation] 02-28-2023 Unclassified (1 source) Non-pressure chronic ulcer of unspecified part of right lower leg limited to breakdown of skin; Translations: [Non-pressure chronic ulcer of unspecified part of right lower leg limited to breakdown of skin] Onset: 3 Unclassified (1 source) Encounter for screening mammogram for malignant neoplasm of breast; Translations: [Encounter for screening mammogram for malignant neoplasm of breast] Onset: 3 Varicose veins of lower extremity (9 sources) 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; Translations: [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] Episodic Past or Other Problems Problem Classification Problem Date Documented Date Episodic/Chronic Conditions associated with dizziness or vertigo (1 source) Dizziness and giddiness Onset: 03-02-2022 Resolved: 03-02-2022 Episodic Medical examination/evaluatio n (5 sources) Encounter for preprocedural cardiovascular examination; Translations: [Encounter for preprocedural laboratory examination] Onset: 04-18-2017 Episodic Nausea and vomiting (1 source) Nausea with vomiting, unspecified Onset: 03-02-2022 Resolved: 03-02-2022 Episodic Other acquired deformities (4 sources) Other specified acquired deformities of musculoskeletal system; Translations: [OTHER SPEC ACQ DEFORMITY MSK SYS] Onset: 03-07-2017 Episodic Other connective tissue disease (1 source) Achilles tendinitis, left leg; Translations: [ACHILLES TENDINITIS LEFT LEG] Onset: 04-28-2017 Episodic Results Test Name Value Interpretation Reference Range Facility B-Type Natriuretic Peptideon 06-03-2023 Natriuretic peptide B (Bld) [Mass/Vol] 26.0 pg/mL Normal 5-100 [facility] Comment on above: Result Comment: PERF ORMED BY: [facility] [address] [place] [address] PATHOLOGIST SANDER OPERATOR MARTINEZ GARZA M.D. Performed By: #### L IPID, CBC, URMACRERAT, CMP #### [facility] [address] COVID-19 / Flu A/B / RSV PCR on 06-03-2023 SARS-CoV-2 (COVID-19) RNA ROSA+probe Ql (Unsp spec) COVID-19 Cepheid Result Negative for SARS-CoV-2 RNA by RT-PCR Flu A Cepheid Result Negative for Flu A RNA by RT-PCR Flu B Cepheid Result Negative for Flu B RNA by RT-PCR RSV Cepheid Result Negative for RSV RNA by RT-PCR COVID19 Blank Space -- Reference: Negative COVID19 Blank Space -- Cepheid Disclaimer The Cepheid Xpert Xpress CoV-2/Flu/RSV Plus has Cepheid Disclaimer not been FDA cleared or approved; this test has Cepheid Disclaimer been authorized by FDA under an EUA for use by Cepheid Disclaimer authorized laboratories; this test has been Cepheid Disclaimer authorized only for the simultaneous qualitative Cepheid Disclaimer detection and differentiation of nucleic acids from Cepheid Disclaimer SARS-CoV-2, influenza A, influenza B, and Cepheid Disclaimer respiratory syncytial virus (RSV), and not for any Cepheid Disclaimer other viruses or pathogens; and this test is only Cepheid Disclaimer authorized for the duration of the declaration that Cepheid Disclaimer circumstances exist justifying the authorization of Cepheid Disclaimer emergency use of in vitro diagnostic tests for Cepheid Disclaimer detection and/or diagnosis of COVID-19 under Cepheid Disclaimer Section 564(b)(1) of the Act, 21 U.S.C. 360bbb- Cepheid Disclaimer 3(b)(1), unless the authorization is terminated or Cepheid Disclaimer revoked sooner. PERFORMED BY: [place] [address] PATHOLOGIST SANDER OPERATOR MARTINEZ GARZA M.D. Normal [facility] Comment on above: Performed By: #### C EPHEID NEG, COVID19 FLU RSV #### [address] Cepheid COVID PCR Negativeon 06-03-2023 SARS-CoV-2 (COVID-19) RNA ROSA+probe Ql (Unsp spec) Negative Normal Negative [facility] Comment on above: Result Comment: This is a duplicate Cepheid Xpert Xpress CoV-2/Flu/RSV Plus RNA by RT-PCR result to be used for statistical tracking purpose only. PERFORMED BY: [place] [address] PATHOLOGIST SANDER OPERATOR MARTINEZ GARZA M.D. Performed By: #### C EPHEID NEG, COVID19 FLU RSV #### [address] Complete Blood Count Auto Di ffon 06-03-2023 Basophils (Bld) [#/Vol] 0.0 10*3/uL Normal 0.0-0.2 [facility] Comment on above: Result Comment: PERF ORMED BY: [place] [address] PATHOLOGIST SANDER OPERATOR MARTINEZ GARZA M.D. Performed By: #### L IPID, CBC, URMACRERAT, CMP #### [address] Basophils/100 WBC (Bld) 0.3 % Normal . [facility] Comment on above: Performed By: #### L IPID, CBC, URMACRERAT, CMP #### [address] Eosinophils (Bld) [#/Vol] 0.2 10*3/uL Normal 0.0-0.45 [facility] Comment on above: Performed By: #### L IPID, CBC, URMACRERAT, CMP #### [address] Eosinophils/100 WBC (Bld) 2.8 % Normal . [facility] Comment on above: Performed By: #### L IPID, CBC, URMACRERAT, CMP #### [address] Erythrocyte distribution width (RBC) [Ratio] 14.6 % Normal 11.9-15.3 [facility] Comment on above: Performed By: #### L IPID, CBC, URMACRERAT, CMP #### [address] Hematocrit (Bld) [Volume fraction] 36.2 % Normal 34.0-46.4 [facility] Comment on above: Performed By: #### L IPID, CBC, URMACRERAT, CMP #### [address] Hemoglobin (Bld) [Mass/Vol] 12.6 g/dL Normal 11.8-15.4 [facility] Comment on above: Performed By: #### L IPID, CBC, URMACRERAT, CMP #### [address] Lymphocytes (Bld) [#/Vol] 3.3 10*3/uL Normal 1.00-4.8 [facility] Comment on above: Performed By: #### L IPID, CBC, URMACRERAT, CMP #### [address] Lymphocytes/100 WBC (Bld) 42.3 % Normal . [facility] Comment on above: Performed By: #### L IPID, CBC, URMACRERAT, CMP #### [address] MCH (RBC) [Entitic mass] 29.9 pg Normal 24.7-34.3 [facility] Comment on above: Performed By: #### L IPID, CBC, URMACRERAT, CMP #### [address] MCV (RBC) [Entitic vol] 85.9 fL Normal 80-100 [facility] Comment on above: Performed By: #### L IPID, CBC, URMACRERAT, CMP #### [address] Mean Corpuscular HGB Conc 34.8 g/dL Normal 32.0-35.0 [facility] Comment on above: Performed By: #### L IPID, CBC, URMACRERAT, CMP #### [address] Monocytes (Bld) [#/Vol] 0.6 10*3/uL Normal 0.0-0.8 [facility] Comment on above: Performed By: #### L IPID, CBC, URMACRERAT, CMP #### [address] Monocytes/100 WBC (Bld) 18.99 % Normal 0.00-20.00 [facility] Comment on above: Performed By: #### L IPID, CBC, URMACRERAT, CMP #### [address] Monocytes/100 WBC (Bld) 8.3 % Normal . [facility] Comment on above: Performed By: #### L IPID, CBC, URMACRERAT, CMP #### [address] Neutrophils (Bld) [#/Vol] 3.6 10*3/uL Normal 1.8-7.7 [facility] Comment on above: Performed By: #### L IPID, CBC, URMACRERAT, CMP #### [address] Neutrophils/100 WBC (Bld) 46.3 % Normal . [facility] Comment on above: Performed By: #### L IPID, CBC, URMACRERAT, CMP #### [place] [address] [place] NRBC% 0.2 /100{WBC} Normal 0-0.5 [facility] Comment on above: Performed By: #### L IPID, CBC, URMACRERAT, CMP #### [address] Platelet mean volume (Bld) [Entitic vol] 8.4 fL Normal 6.3-10.7 [facility] Comment on above: Performed By: #### L IPID, CBC, URMACRERAT, CMP #### [address] Platelets (Bld) [#/Vol] 303 10*3/uL Normal 150-450 [facility] Comment on above: Performed By: #### L IPID, CBC, URMACRERAT, CMP #### [address] RBC (Bld) [#/Vol] 4.21 10*6/uL Normal 3.60-5.00 [facility] Comment on above: Performed By: #### L IPID, CBC, URMACRERAT, CMP #### [address] WBC (Bld) [#/Vol] 7.7 10*3/uL Normal 3.8-11.6 [facility] Comment on above: Performed By: #### L IPID, CBC, URMACRERAT, CMP #### [facility] [address] [place], [place] [address] Comprehensive Metabolic Pane tino 06-03-2023 Albumin [Mass/Vol] 4.0 g/dL Normal 3.5-5.7 [facility] Comment on above: Performed By: #### L IPID, CBC, URMACRERAT, CMP #### [address] Albumin/Globulin [Mass ratio] 1.5 {ratio} Normal [facility] Comment on above: Performed By: #### L IPID, CBC, URMACRERAT, CMP #### [facility] [address] ALP [Catalytic activity/Vol] 72 U/L Normal 34-104 [facility] Comment on above: Performed By: #### L IPID, CBC, URMACRERAT, CMP #### [facility] [address] ALT [Catalytic activity/Vol] 16 U/L Normal 7-52 [facility] Comment on above: Performed By: #### L IPID, CBC, URMACRERAT, CMP #### [facility] [address] Anion gap [Moles/Vol] Not performed Normal 6.0-15.0 [facility] Comment on above: Performed By: #### L IPID, CBC, URMACRERAT, CMP #### [address] AST [Catalytic activity/Vol] 20 U/L Normal 13-39 [facility] Comment on above: Performed By: #### L IPID, CBC, URMACRERAT, CMP #### [facility] [address] [place] [address] Bilirubin [Mass/Vol] 0.3 mg/dL Normal 0.3-1.0 [facility] Comment on above: Performed By: #### L IPID, CBC, URMACRERAT, CMP #### [facility] [address] [place] [address] Calcium [Mass/Vol] 9.1 mg/dL Normal 8.6-10.3 [facility] Comment on above: Performed By: #### L IPID, CBC, URMACRERAT, CMP #### [facility] [address] [place] [address] [place] Chloride [Moles/Vol] 105 mmol/L Normal 98-107 [facility] Comment on above: Performed By: #### L IPID, CBC, URMACRERAT, CMP #### [facility] [address] [place] [address] [place] CO2 [Moles/Vol] 26.7 mmol/L Normal 21.0-31.0 [facility] Comment on above: Performed By: #### L IPID, CBC, URMACRERAT, CMP #### [address] Creatinine [Mass/Vol] 0.72 mg/dL Normal 0.60-1.20 [facility] Comment on above: Performed By: #### L IPID, CBC, URMACRERAT, CMP #### [address] Creatinine Clr Calc Pharmacy 108.[address] [facility] Comment on above: Result Comment: PERF ORMED BY: [place] [address] PATHOLOGIST SANDER OPERATOR MARTINEZ GARZA M.D. Performed By: #### L IPID, CBC, URMACRERAT, CMP #### [address] GFR/1.73 sq M.predicted MDRD (S/P/Bld) [Vol rate/Area] mL/min/{1.73_m2} [facility] Comment on above: Performed By: #### L IPID, CBC, URMACRERAT, CMP #### [address] Globulin (S) [Mass/Vol] 2.6 g/dL [facility] Comment on above: Performed By: #### L IPID, CBC, URMACRERAT, CMP #### [address] Glucose [Mass/Vol] 198 mg/dL High 70-100 [facility] Comment on above: Result Comment: [place] Glucose Reference Range is dependent on time and content of last meal. Glucose of more than 200 mg/dL in a nonstressed, ambulatory subject supports the diagnosis of Diabetes Mellitus. ADA recommended reference range Performed By: #### L IPID, CBC, URMACRERAT, CMP #### [address] Potassium Normal 3.5-5.1 [facility] Comment on above: Result Comment: Spec imen hemolyzed, redraw requested Performed By: #### L IPID, CBC, URMACRERAT, CMP #### [facility] [address] Protein [Mass/Vol] 6.6 g/dL Normal 6.4-8.9 [facility] Comment on above: Performed By: #### L IPID, CBC, URMACRERAT, CMP #### [facility] [address] Sodium [Moles/Vol] 132 mmol/L Low 136-145 [facility] Comment on above: Performed By: #### L IPID, CBC, URMACRERAT, CMP #### [facility] [address] Urea nitrogen [Mass/Vol] 21 mg/dL Normal 7-25 [facility] Comment on above: Performed By: #### L IPID, CBC, URMACRERAT, CMP #### [facility] [address] [place] [id number] [facility] Creatine Kinaseon 06-03-2023 CK [Catalytic activity/Vol] 50 U/L Normal 30-223 [facility] Comment on above: Performed By: #### L IPID, CBC, URMACRERAT, CMP #### [address] ECG 12 lead ECGon 06-03-[address] [facility] [address] Electrocardiograph Report Signed Patient: Mavis Pickard MR#: [id number] 850 : 1960 Acct:[id number] Age/Sex: 63 / F ADM Date: 06/02/23 Loc: ER Room: Type: [facility] ER Attending Dr: Ordering Provider: Rashad Pendleton DO Date of Service: 06/02/2311/20/2235 ECG/ECG 12 lead ECG: Shortness of Breath/Dyspnea Copies to: Test Reason : Blood Pressure : / mmHG Vent. Rate : 070 BPM Atrial Rate : 070 BPM P-R Int : 124 ms QRS Dur : 072 ms QT Int : 388 ms P-R-T Axes : 073 069 058 degrees QTc Int : 419 ms Normal sinus rhythm Low voltage QRS Normal ECG When compared with ECG of 15-JUN-2018 18:32, No significant change was found Confirmed by WINSTON MOE MD ([id number]) on 06/04/2023 9:17:46 PM Referred By: Electronically Signed By:WINSTON MOE MD Transcribed By: MUS Signed By Winston Moe MD 2116 Normal [facility] Redraw Potassiumon 3 Potassium [Moles/Vol] 3.9 mmol/L Normal 3.5-5.1 [facility] Comment on above: Result Comment: PERF ORMED BY: [place] [address] PATHOLOGIST SANDER OPERATOR MARTINEZ GARZA M.D. Performed By: #### R EDRAW K #### [address] Troponin I High Sensitivityo n 06-03-2023 Troponin I High Sensitivity 4.2 pg/mL Normal 0.0-15.0 [facility] Comment on above: Result Comment: PERF ORMED BY: [place] [address] PATHOLOGIST SANDER OPERATOR MARTINEZ GARZA M.D. Performed By: #### L IPID, CBC, URMACRERAT, CMP #### [place] [address] [place] XR chest 2V*on 06-03-2023 XR chest 2V* [facility] [address] XRay Report Signed Patient: Mavis Pickard MR#: [id number] : 1960 Acct:[id number] Age/Sex: 63 / F ADM Date: 06/02/23 Loc: ER Room: Type: [facility] ER Attending Dr: Copies to: Rashad Pendleton DO Ordering Provider: Rashad D Pendleton, DO Date of Service: 06/02/23 XR/XR chest 2V*: Shortness of Breath/Dyspnea XR chest 2V* 06/02/2023 10:36 PM SIGNS AND SYMPTOMS: Shortness of breath on exertion PROTOCOL: Frontal and lateral radiographs of the chest COMPARISON: 06/15/2018 FINDINGS: The trachea is midline. The heart and mediastinal structures are within normal limits. The lung parenchyma is clear. The bony thorax is intact. XR/XR chest 2V* IMPRESSION: No acute cardiopulmonary pathology. Impression dictated by: Holden Herrmann M.D.06/03/2023 9:48 AM Dictation Location: [place] [address] Transcribed By: LADONNA 06/03/23947 Dictated By: Holden Herrmann II, MD 06/03/23946 Signed By: 06/03/23947 Normal [facility] Alanine aminotransferase [En zymatic activity/volume] in Serum or PlasmaOrdered By: Rashad Pendleton on 06-02-2023 ALT [Catalytic activity/Vol] 16 U/L 7-52 [facility] Albumin [Mass/volume] in Ser um or Plasma by Bromocresol green (BCG) dye binding methoOrdered By: Rashad Pendleton on 06-02-2023 Albumin BCG dye [Mass/Vol] 4.0 g/dL 3.5-5.7 [facility] Alkaline phosphatase [Enzyma tic activity/volume] in Serum or PlasmaOrdered By: Rashad Pendleton on 06-02-2023 ALP [Catalytic activity/Vol] 72 U/L 34-104 [facility] Aspartate aminotransferase [ Enzymatic activity/volume] in Serum or PlasmaOrdered By: Rashad Pendleton on 06-02-2023 AST [Catalytic activity/Vol] 20 U/L 13-39 [facility] Basophils Auto (Bld) [#/Vol] Ordered By: Rashad Pendleton on 06-02-2023 Basophils (Bld) [#/Vol] 0.0 10*3/uL 0.0-0.2 [facility] Basophils/100 WBC Auto (Bld) Ordered By: Rashad Pendleton on 06-02-2023 Basophils/100 WBC (Bld) 0.3 % . [facility] Bilirubin.total [Mass/volume ] in Serum or PlasmaOrdered By: Rashad Pendleton on 06-02-2023 Bilirubin [Mass/Vol] 0.3 mg/dL 0.3-1.0 [facility] COVID CepheidOrdered By: Denise Pendleton on 06-02-2023 SARS-CoV-2 (COVID-19) Ab IA Ql Negative Negative [facility] Comment on above: This is a duplicate [employer] Xpert Xpress CoV-2/Flu/RSV Plus RNA by RT-PCR result to be used for statistical tracking purpose only. SARS-CoV-2 (COVID-19) RNA ROSA+probe Ql (Unsp spec) [facility] Calcium [Mass/volume] in Ser um or PlasmaOrdered By: Rashad Pendleton on 06-02-2023 Calcium [Mass/Vol] 9.1 mg/dL 8.6-10.3 [facility] Carbon dioxide, total [Moles /volume] in Serum or PlasmaOrdered By: Rashad Pendleton on 06-02-2023 CO2 [Moles/Vol] 26.7 mmol/L 21.0-31.0 [facility] Chloride [Moles/volume] in S alexander or PlasmaOrdered By: Rashad Pendleton on 06-02-2023 Chloride [Moles/Vol] 105 mmol/L 98-107 [facility] Creatine kinase [Enzymatic a ctivity/volume] in Serum or PlasmaOrdered By: Rashad Pendleton on 06-02-2023 CK [Catalytic activity/Vol] 50 U/L 30-223 [facility] Creatinine [Mass/volume] in Serum or PlasmaOrdered By: Rashad Pendleton on 06-02-2023 Creatinine [Mass/Vol] 0.72 mg/dL 0.60-1.20 [facility] Eosinophils Auto (Bld) [#/Vo l]Ordered By: Rashad Pendleton on 06-02-2023 Eosinophils (Bld) [#/Vol] 0.2 10*3/uL 0.0-0.45 [facility] Eosinophils/100 WBC Auto (Bl d)Ordered By: Rashad Pendleton on 06-02-2023 Eosinophils/100 WBC (Bld) 2.8 % . [facility] Erythrocyte distribution wid th Auto (RBC) [Ratio]Ordered By: aRshad Pendleton on 06-02-2023 Erythrocyte distribution width (RBC) [Ratio] 14.6 % 11.9-15.3 [facility] Globulin Calc (S) [Mass/Vol] Ordered By: Rashad Pendleton on 06-02-2023 Globulin (S) [Mass/Vol] 2.6 g/dL [facility] Glucose [Mass/volume] in Ser um or PlasmaOrdered By: Rashad Pendleton on 06-02-2023 Glucose [Mass/Vol] 198 mg/dL 70-100 [facility] Comment on above: ADA recommended refe rence rangeRandom Glucose Reference Range is dependent on time and content of last meal. Glucose of more than 200 mg/dL in a nonstressed, ambulatory subject supports the diagnosis of Diabetes Mellitus. Hematocrit Auto (Bld) [Volum e fraction]Ordered By: Rashad Pendleton on 06-02-2023 Hematocrit (Bld) [Volume fraction] 36.2 % 34.0-46.4 [facility] Hemoglobin [Mass/volume] in BloodOrdered By: Rashad Pendleton on 06-02-2023 Hemoglobin (Bld) [Mass/Vol] 12.6 g/dL 11.8-15.4 [facility] Leukocytes [#/volume] correc vandana for nucleated erythrocytes in Blood by Automated counOrdered By: Rashad Pendleton on 06-02-2023 WBC corrected for nucl RBC Auto (Bld) [#/Vol] 7.7 10*3/uL 3.8-11.6 [facility] Lymphocytes Auto (Bld) [#/Vo l]Ordered By: Rashad Pendleton on 06-02-2023 Lymphocytes (Bld) [#/Vol] 3.3 10*3/uL 1.00-4.8 [facility] Lymphocytes/100 WBC Auto (Bl d)Ordered By: Rashad Pendleton on 06-02-2023 Lymphocytes/100 WBC (Bld) 42.3 % . [facility] MCH Auto (RBC) [Entitic mass ]Ordered By: Rashad Pendleton on 06-02-2023 MCH (RBC) [Entitic mass] 29.9 pg 24.7-34.3 [facility] MCHC Auto (RBC) [Mass/Vol]Or dered By: Rashad Pendleton on 06-02-2023 MCHC (RBC) [Mass/Vol] 34.8 g/dL 32.0-35.0 [facility] MCV Auto (RBC) [Entitic vol] Ordered By: Rashad Pendleton on 06-02-2023 MCV (RBC) [Entitic vol] 85.9 fL 80-100 [facility] Monocyte distribution width [Entitic volume] in Blood by AutomatedOrdered By: Rashad Pendleton on 06-02-2023 Monocyte distribution width Auto (Bld) [Entitic vol] 18.99 % 0.00-20.00 [facility] Monocytes Auto (Bld) [#/Vol] Ordered By: Rashad Pendleton on 06-02-2023 Monocytes (Bld) [#/Vol] 0.6 10*3/uL 0.0-0.8 [facility] Monocytes/100 WBC Auto (Bld) Ordered By: Rashad Pendleton on 06-02-2023 Monocytes/100 WBC (Bld) 8.3 % . [facility] Natriuretic peptide B [Mass/ Vol]Ordered By: Rashad Pendleton on 06-02-2023 Natriuretic peptide B (Bld) [Mass/Vol] 26.0 pg/mL 5-100 [facility] Neutrophils Auto (Bld) [#/Vo l]Ordered By: Rashad Pendleton on 06-02-2023 Neutrophils (Bld) [#/Vol] 3.6 10*3/uL 1.8-7.7 [facility] Neutrophils/100 WBC Auto (Bl d)Ordered By: Rashad Pendleton on 06-02-2023 Neutrophils/100 WBC (Bld) 46.3 % . [facility] No Panel InformationOrdered By: Rashad Pendleton on 06-02-2023 Estimated GFR (CKD-EPI) > 60.0 mL/Min [facility] Creatinine Clearance (Chem 108.28 [facility] Nucleated erythrocytes [Pres ence] in Blood by Automated countOrdered By: Rashad Pendleton on 06-02-2023 Nucleated RBC Auto Ql (Bld) 0.2 /100{WBC} 0-0.5 [facility] Platelet mean volume Auto (B ld) [Entitic vol]Ordered By: Rashad Pendleton on 06-02-2023 Platelet mean volume (Bld) [Entitic vol] 8.4 fL 6.3-10.7 [facility] Platelets Auto (Bld) [#/Vol] Ordered By: Rashad Pendleton on 06-02-2023 Platelets (Bld) [#/Vol] 303 10*3/uL 150-450 [facility] Protein [Mass/volume] in Ser um or PlasmaOrdered By: Rashad Pendleton on 06-02-2023 Protein [Mass/Vol] 6.6 g/dL 6.4-8.9 [facility] RBC Auto (Bld) [#/Vol]Ordere d By: Rashad Pendleton on 06-02-2023 RBC (Bld) [#/Vol] 4.21 10*6/uL 3.60-5.00 [facility] Serum or plasma albumin/glob ulin mass ratioOrdered By: Rashad Pendleton on 06-02-2023 Albumin/Globulin [Mass ratio] 1.5 {ratio} [facility] Serum or plasma anion gap de terminationOrdered By: Rashad Pendleton on 06-02-2023 Anion gap [Moles/Vol] TNP [facility] Comment on above: Test not performed Sodium [Moles/volume] in Ser um or PlasmaOrdered By: Rashad Pendleton on 06-02-2023 Sodium [Moles/Vol] 132 mmol/L 136-145 [facility] Troponin I.cardiac [Mass/vol ume] in Serum or Plasma by Detection limit <= 0.01 ng/Ordered By: Rashad Pendleton on 06-02-2023 Troponin I.cardiac DL <= 0.01 ng/mL [Mass/Vol] 4.2 pg/mL 0.0-15.0 [facility] Urea nitrogen [Mass/volume] in Serum or PlasmaOrdered By: Rashad Pendleton on 06-02-2023 Urea nitrogen [Mass/Vol] 21 mg/dL 7-25 [facility] WBC Auto (Bld) [#/Vol]Ordere d By: Rashad Pendleton on 06-02-2023 WBC (Bld) [#/Vol] 7.7 10*3/uL 3.8-11.6 [facility] A1C HEMOGLOBINon 05-21-2023 HbA1c (Bld) [Mass fraction] 6.3 % fruux Other HbA1c (Bld) [Mass fraction]o n 05-21-2023 A1C HEMOGLOBIN ADmantX Other A1C HEMOGLOBINon 02-08-2023 HbA1c (Bld) [Mass fraction] 6.3 % fruux Other HbA1c (Bld) [Mass fraction]o n 02-08-2023 A1C HEMOGLOBIN ADmantX Other Alanine aminotransferase [En zymatic activity/volume] in Serum or PlasmaOrdered By: Rashad Teran on 02-07-2023 ALT [Catalytic activity/Vol] 21 U/L Normal 7-52 [facility] Comment on above: Order Comment: Reaso n for Exam Type 2 diabetes mellitus without complications Performed By: #### L IPID, CBC, URMACRERAT, CMP #### [facility] [address] [place] [address] [place] Albumin [Mass/volume] in Ser um or Plasma by Bromocresol green (BCG) dye binding methoOrdered By: Rashad Teran on 02-07-2023 Albumin BCG dye [Mass/Vol] 4.3 g/dL 3.5-5.7 [facility] Alkaline phosphatase [Enzyma tic activity/volume] in Serum or PlasmaOrdered By: Rashad Teran on 02-07-2023 ALP [Catalytic activity/Vol] 78 U/L Normal 34-104 [facility] Comment on above: Order Comment: Reaso n for Exam Type 2 diabetes mellitus without complications Performed By: #### L IPID, CBC, URMACRERAT, CMP #### [facility] [address] [place] [address] [place] Aspartate aminotransferase [ Enzymatic activity/volume] in Serum or PlasmaOrdered By: Rashad Teran on 02-07-2023 AST [Catalytic activity/Vol] 24 U/L Normal 13-39 [facility] Comment on above: Order Comment: Reaso n for Exam Type 2 diabetes mellitus without complications Performed By: #### L IPID, CBC, URMACRERAT, CMP #### [facility] [address] [place] [address] Automated basophil %Ordered By: Rashad Teran on 02-07-2023 Basophils/100 WBC (Bld) 1.0 % Normal . [facility] Comment on above: Order Comment: Reaso n for Exam Type 2 diabetes mellitus without complications Performed By: #### L IPID, CBC, URMACRERAT, CMP #### [facility] [address] Automated basophil countOrde red By: Rashad Mast on 02-07-2023 Basophils (Bld) [#/Vol] 0.1 10*3/uL Normal 0.0-0.2 [facility] Comment on above: Order Comment: Reaso n for Exam Type 2 diabetes mellitus without complications Result Comment: PERF ORMED BY: [place] [address] PATHOLOGIST SANDER OPERATOR MARTINEZ GARZA M.D. Performed By: #### L IPID, CBC, URMACRERAT, CMP #### [address] Automated blood monocyte cou ntOrdered By: Rashad Teran on 02-07-2023 Monocytes (Bld) [#/Vol] 0.6 10*3/uL Normal 0.0-0.8 [facility] Comment on above: Order Comment: Reaso n for Exam Type 2 diabetes mellitus without complications Performed By: #### L IPID, CBC, URMACRERAT, CMP #### [facility] [address] [place] [address] Automated eosinophil %Ordere d By: Rashad Mast on 02-07-2023 Eosinophils/100 WBC (Bld) 3.5 % Normal . [facility] Comment on above: Order Comment: Reaso n for Exam Type 2 diabetes mellitus without complications Performed By: #### L IPID, CBC, URMACRERAT, CMP #### [facility] [address] [place] [address] [place] Automated eosinophil countOr dered By: Rashad Mast on 02-07-2023 Eosinophils (Bld) [#/Vol] 0.3 10*3/uL Normal 0.0-0.45 [facility] Comment on above: Order Comment: Reaso n for Exam Type 2 diabetes mellitus without complications Performed By: #### L IPID, CBC, URMACRERAT, CMP #### [facility] [address] Automated monocyte %Ordered By: Rashad Mast on 02-07-2023 Monocytes/100 WBC (Bld) 7.4 % Normal . [facility] Comment on above: Order Comment: Reaso n for Exam Type 2 diabetes mellitus without complications Performed By: #### L IPID, CBC, URMACRERAT, CMP #### [facility] [address] [place] [address] Automated neutrophil %Ordere d By: Rashad Mast on 02-07-2023 Neutrophils/100 WBC (Bld) 53.6 % Normal . [facility] Comment on above: Order Comment: Reaso n for Exam Type 2 diabetes mellitus without complications Performed By: #### L IPID, CBC, URMACRERAT, CMP #### [facility] [address] [place] [address] Bilirubin.total [Mass/volume ] in Serum or PlasmaOrdered By: Rashad Mast on 02-07-2023 Bilirubin [Mass/Vol] 0.6 mg/dL Normal 0.3-1.0 [facility] Comment on above: Order Comment: Reaso n for Exam Type 2 diabetes mellitus without complications Performed By: #### L IPID, CBC, URMACRERAT, CMP #### [facility] [address] [place] [address] [place] Calcium [Mass/volume] in Ser um or PlasmaOrdered By: Rashad Mast on 02-07-2023 Calcium [Mass/Vol] 9.6 mg/dL Normal 8.6-10.3 [facility] Comment on above: Order Comment: Reaso n for Exam Type 2 diabetes mellitus without complications Performed By: #### L IPID, CBC, URMACRERAT, CMP #### [facility] [address] [place] [id number] [place] Carbon dioxide, total [Moles /volume] in Serum or PlasmaOrdered By: Rashad Mast on 02-07-2023 CO2 [Moles/Vol] 28.0 mmol/L Normal 21.0-31.0 [facility] Comment on above: Order Comment: Reaso n for Exam Type 2 diabetes mellitus without complications Performed By: #### L IPID, CBC, URMACRERAT, CMP #### [facility] [address] [place] [address] [place] Chloride [Moles/volume] in S alexander or PlasmaOrdered By: Rashad Mast on 02-07-2023 Chloride [Moles/Vol] 103 mmol/L Normal 98-107 [facility] Comment on above: Order Comment: Reaso n for Exam Type 2 diabetes mellitus without complications Performed By: #### L IPID, CBC, URMACRERAT, CMP #### [facility] [address] [place] [id number] [place] Cholesterol [Mass/volume] in Serum or PlasmaOrdered By: Rashad Mast on 02-07-2023 Cholesterol [Mass/Vol] 119 mg/dL Low 140-200 [facility] Comment on above: Chol less than 200 m g/dl low riskChol 201-239 mg/dl borderline riskChol 240 mg/dl and greater high risk Order Comment: Reaso n for Exam Type 2 diabetes mellitus without complications Result Comment: Chol less than 200 mg/dl low risk Chol 201-239 mg/dl borderline risk Chol 240 mg/dl and greater high risk Performed By: #### L IPID, CBC, URMACRERAT, CMP #### [facility] [address] [place] [id number] [place] Cholesterol in LDL Calc [Mas s/Vol]Ordered By: Rashad Mast on 02-07-2023 Cholesterol in LDL [Mass/Vol] 40 mg/dL 0-100 [facility] Comment on above: LDL ATP III CLASSIFI CATIONLDL less than 100 mg/dL OptimalLDL 100-129 mg/dL Near or above optimalLDL 130-159 mg/dL Borderline highLDL 160-189 mg/dL HighLDL greater than 189 mg/dL Very high Cholesterol in VLDL Calc [Ma ss/Vol]Ordered By: Rashad Teran on 02-07-2023 Cholesterol in VLDL [Mass/Vol] 29 mg/dL [facility] Complete Blood Count Auto Di ffon 02-07-2023 Mean Corpuscular HGB Conc 33.2 g/dL Normal 32.0-35.0 [facility] Comment on above: Order Comment: Reaso n for Exam Type 2 diabetes mellitus without complications Performed By: #### L IPID, CBC, URMACRERAT, CMP #### [facility] [address] NRBC% 0.2 /100{WBC} Normal 0-0.5 [facility] Comment on above: Order Comment: Reaso n for Exam Type 2 diabetes mellitus without complications Performed By: #### L IPID, CBC, URMACRERAT, CMP #### [facility] [address] [place] [address] Comprehensive Metabolic Pane tino 02-07-2023 Albumin [Mass/Vol] 4.3 g/dL Normal 3.5-5.7 [facility] Comment on above: Order Comment: Reaso n for Exam Type 2 diabetes mellitus without complications Performed By: #### L IPID, CBC, URMACRERAT, CMP #### [facility] [address] [place] [address] GFR/1.73 sq M.predicted MDRD (S/P/Bld) [Vol rate/Area] mL/min/{1.73_m2} Normal [facility] Comment on above: Order Comment: Reaso n for Exam Type 2 diabetes mellitus without complications Performed By: #### L IPID, CBC, URMACRERAT, CMP #### [facility] [address] [place] [address] Creatinine [Mass/volume] in Serum or PlasmaOrdered By: Rashad Teran on 02-07-2023 Creatinine [Mass/Vol] 0.82 mg/dL Normal 0.60-1.20 [facility] Comment on above: Order Comment: Reaso n for Exam Type 2 diabetes mellitus without complications Performed By: #### L IPID, CBC, URMACRERAT, CMP #### [facility] [address] Creatinine [Mass/volume] in UrineOrdered By: Rashad Teran on 02-07-2023 Creatinine (U) [Mass/Vol] 140.0 mg/dL 11.0-20.0 [facility] Erythrocyte distribution wid th [Ratio] by Automated countOrdered By: Rashad Teran on 02-07-2023 Erythrocyte distribution width (RBC) [Ratio] 14.3 % Normal 11.9-15.3 [facility] Comment on above: Order Comment: Reaso n for Exam Type 2 diabetes mellitus without complications Performed By: #### L IPID, CBC, URMACRERAT, CMP #### [facility] [address] [place] [address] [place] Erythrocytes [#/volume] in B lood by Automated countOrdered By: Rashad Teran on 02-07-2023 RBC (Bld) [#/Vol] 4.98 10*6/uL Normal 3.60-5.00 [facility] Comment on above: Order Comment: Reaso n for Exam Type 2 diabetes mellitus without complications Performed By: #### L IPID, CBC, URMACRERAT, CMP #### [facility] [address] [place] [address] [place] Glucose [Mass/volume] in Ser um or PlasmaOrdered By: Rashad Teran on 02-07-2023 Glucose [Mass/Vol] 122 mg/dL High 70-100 [facility] Comment on above: ADA recommended refe rence rangeRandom Glucose Reference Range is dependent on time and content of last meal. Glucose of more than 200 mg/dL in a nonstressed, ambulatory subject supports the diagnosis of Diabetes Mellitus. Order Comment: Reaso n for Exam Type 2 diabetes mellitus without complications Result Comment: [place] om Glucose Reference Range is dependent on time and content of last meal. Glucose of more than 200 mg/dL in a nonstressed, ambulatory subject supports the diagnosis of Diabetes Mellitus. ADA recommended reference range Performed By: #### L IPID, CBC, URMACRERAT, CMP #### [facility] [address] [place] [address] [place] Hematocrit [Volume Fraction] of Blood by Automated countOrdered By: Rashad Teran on 02-07-2023 Hematocrit (Bld) [Volume fraction] 42.0 % Normal 34.0-46.4 [facility] Comment on above: Order Comment: Reaso n for Exam Type 2 diabetes mellitus without complications Performed By: #### L IPID, CBC, URMACRERAT, CMP #### [facility] [address] Hemoglobin [Mass/volume] in BloodOrdered By: Rashad Teran on 02-07-2023 Hemoglobin (Bld) [Mass/Vol] 14.0 g/dL Normal 11.8-15.4 [facility] Comment on above: Order Comment: Reaso n for Exam Type 2 diabetes mellitus without complications Performed By: #### L IPID, CBC, URMACRERAT, CMP #### [facility] [address] Leukocytes [#/volume] correc vandana for nucleated erythrocytes in Blood by Automated counOrdered By: Rashad Teran on 02-07-2023 WBC corrected for nucl RBC Auto (Bld) [#/Vol] 7.4 10*3/uL 3.8-11.6 [facility] Leukocytes [#/volume] in Blo od by Automated countOrdered By: Rashad Teran on 02-07-2023 WBC (Bld) [#/Vol] 7.4 10*3/uL Normal 3.8-11.6 [facility] Comment on above: Order Comment: Reaso n for Exam Type 2 diabetes mellitus without complications Performed By: #### L IPID, CBC, URMACRERAT, CMP #### [facility] [address] [place] [address] [place] Lipid Panelon 02-07-2023 LDL Cholesterol,Calculate d 40 mg/dL Normal 0-100 [facility] Comment on above: Order Comment: Reaso n for Exam Type 2 diabetes mellitus without complications Result Comment: LDL ATP III CLASSIFICATION LDL less than 100 mg/dL Optimal LDL 100-129 mg/dL Near or above optimal LDL 130-159 mg/dL Borderline high LDL 160-189 mg/dL High LDL greater than 189 mg/dL Very high Performed By: #### L IPID, CBC, URMACRERAT, CMP #### [address] Triglyceride w/Reflex 148 mg/dL Normal 0-149 [facility] Comment on above: Order Comment: Reaso n for Exam Type 2 diabetes mellitus without complications Result Comment: TRIG ATP III CLASSIFICATION TRIG less than 150 mg/dL Normal TRIG 150-199 mg/dL Borderline high TRIG 200-500 mg/dL High TRIG greater than 500 mg/dL Very high Standard traceable to the Center for Disease Conrtrol and Prevention (CDC) test method. Performed By: #### L IPID, CBC, URMACRERAT, CMP #### [address] VLDL CHOLESTEROL 29 mg/dL Normal [facility] Comment on above: Order Comment: Reaso n for Exam Type 2 diabetes mellitus without complications Performed By: #### L IPID, CBC, URMACRERAT, CMP #### [address] Lymphocytes [#/volume] in Bl ood by Automated countOrdered By: Rashad Mast on 02-07-2023 Lymphocytes (Bld) [#/Vol] 2.6 10*3/uL Normal 1.00-4.8 [facility] Comment on above: Order Comment: Reaso n for Exam Type 2 diabetes mellitus without complications Performed By: #### L IPID, CBC, URMACRERAT, CMP #### [address] Lymphocytes/100 leukocytes i n Blood by Automated countOrdered By: Rashad Mast on 02-07-2023 Lymphocytes/100 WBC (Bld) 34.5 % Normal . [facility] Comment on above: Order Comment: Reaso n for Exam Type 2 diabetes mellitus without complications Performed By: #### L IPID, CBC, URMACRERAT, CMP #### [address] MCH [Entitic mass] by Automa vandana countOrdered By: Rashad Mast on 02-07-2023 MCH (RBC) [Entitic mass] 28.0 pg Normal 24.7-34.3 [facility] Comment on above: Order Comment: Reaso n for Exam Type 2 diabetes mellitus without complications Performed By: #### L IPID, CBC, URMACRERAT, CMP #### [address] MCHC Auto (RBC) [Mass/Vol]Or dered By: Rashad Mast on 02-07-2023 MCHC (RBC) [Mass/Vol] 33.2 g/dL 32.0-35.0 [facility] MCV [Entitic volume] by Auto mated countOrdered By: Rashad Mast on 02-07-2023 MCV (RBC) [Entitic vol] 84.3 fL Normal 80-100 [facility] Comment on above: Order Comment: Reaso n for Exam Type 2 diabetes mellitus without complications Performed By: #### L IPID, CBC, URMACRERAT, CMP #### [address] MicroAlb Creat Ratio,Uon Creatinine, Urine (Random) 140.0 mg/dL High 11.0-20.0 [facility] Comment on above: Order Comment: Reaso n for Exam Type 2 diabetes mellitus without complications Performed By: #### L IPID, CBC, URMACRERAT, CMP #### [address] Microalbumin/Creatini ne Ratio 5.0 mg/g Normal 0.0-30.0 [facility] Comment on above: Order Comment: Reaso n for Exam Type 2 diabetes mellitus without complications Result Comment: 30-3 00 mg/g indicates an increased risk for diabetic nephropathy. Greater than 300 mg/g is consistent with clinical nephropathy. (Am. J. Kidney Disease 1995, 25:107) PERFORMED BY: [place] [address] PATHOLOGIST SANDER OPERATOR MARTINEZ GARZA M.D. Performed By: #### L IPID, CBC, URMACRERAT, CMP #### [address] Microalbumin [Mass/volume] i n UrineOrdered By: Rashad Teran on 02-07-2023 Albumin DL <= 20 mg/L (U) [Mass/Vol] 0.8 mg/dL Normal 0.0-1.8 [facility] Comment on above: Order Comment: Reaso n for Exam Type 2 diabetes mellitus without complications Performed By: #### L IPID, CBC, URMACRERAT, CMP #### [facility] [address] Neutrophils [#/volume] in Bl ood by Automated countOrdered By: Rashad Teran on 02-07-2023 Neutrophils (Bld) [#/Vol] 4.0 10*3/uL Normal 1.8-7.7 [facility] Comment on above: Order Comment: Reaso n for Exam Type 2 diabetes mellitus without complications Performed By: #### L IPID, CBC, URMACRERAT, CMP #### [facility] [address] No Panel InformationOrdered By: Rashad Teran on 02-07-2023 Estimated GFR (CKD-EPI) > 60.0 mL/Min [facility] Creatinine Clearance (Chem N/A [facility] Nucleated erythrocytes [Pres ence] in Blood by Automated countOrdered By: Rashad Teran on 02-07-2023 Nucleated RBC Auto Ql (Bld) 0.2 /100{WBC} 0-0.5 [facility] Platelet mean volume [Entiti c volume] in Blood by Automated countOrdered By: Rashad Teran on 02-07-2023 Platelet mean volume (Bld) [Entitic vol] 9.3 fL Normal 6.3-10.7 [facility] Comment on above: Order Comment: Reaso n for Exam Type 2 diabetes mellitus without complications Performed By: #### L IPID, CBC, URMACRERAT, CMP #### [facility] [address] [place] [address] [place] Platelets [#/volume] in Bloo d by Automated countOrdered By: Rashad Teran on 02-07-2023 Platelets (Bld) [#/Vol] 242 10*3/uL Normal 150-450 [facility] Comment on above: Order Comment: Reaso n for Exam Type 2 diabetes mellitus without complications Performed By: #### L IPID, CBC, URMACRERAT, CMP #### [facility] [address] Potassium [Moles/volume] in Serum or PlasmaOrdered By: Rashad Mast on 02-07-2023 Potassium [Moles/Vol] 4.4 mmol/L Normal 3.5-5.1 [facility] Comment on above: Order Comment: Reaso n for Exam Type 2 diabetes mellitus without complications Performed By: #### L IPID, CBC, URMACRERAT, CMP #### [facility] [address] Protein [Mass/volume] in Ser um or PlasmaOrdered By: Rashad Mast on 02-07-2023 Protein [Mass/Vol] 6.9 g/dL Normal 6.4-8.9 [facility] Comment on above: Order Comment: Reaso n for Exam Type 2 diabetes mellitus without complications Performed By: #### L IPID, CBC, URMACRERAT, CMP #### [facility] [address] [place] [address] Serum globulin measurement b y calculation (mass/volume)Ordered By: Rashad Mast on 02-07-2023 Globulin (S) [Mass/Vol] 2.6 g/dL [facility] Comment on above: Order Comment: Reaso n for Exam Type 2 diabetes mellitus without complications Performed By: #### L IPID, CBC, URMACRERAT, CMP #### [facility] [address] [place] [address] [place] Serum or plasma albumin/glob ulin mass ratioOrdered By: Rashad Mast on 02-07-2023 Albumin/Globulin [Mass ratio] 1.7 {ratio} [facility] Comment on above: Order Comment: Reaso n for Exam Type 2 diabetes mellitus without complications Performed By: #### L IPID, CBC, URMACRERAT, CMP #### [facility] [address] [place] [address] [place] Serum or plasma anion gap de terminationOrdered By: Rashad Mast on 02-07-2023 Anion gap [Moles/Vol] 12.4 mmol/L Normal 6.0-15.0 [facility] Comment on above: Order Comment: Reaso n for Exam Type 2 diabetes mellitus without complications Performed By: #### L IPID, CBC, URMACRERAT, CMP #### [facility] [address] Serum or plasma high density lipoprotein (HDL) cholesterol measurementOrdered By: Rashad Teran on 02-07-2023 Cholesterol in HDL [Mass/Vol] 49 mg/dL Normal 23-92 [facility] Comment on above: HDL CHOL ATP-III CLA SSIFICATION Cardiovascular RiskHDL > or equal to 60 mg/dL LOWHDL < 40 mg/dL HIGH Order Comment: Reaso n for Exam Type 2 diabetes mellitus without complications Result Comment: HDL CHOL ATP-III CLASSIFICATION Cardiovascular Risk HDL > or equal to 60 mg/dL LOW HDL < 40 mg/dL HIGH Performed By: #### L IPID, CBC, URMACRERAT, CMP #### [facility] [address] Serum or plasma total choles terol/high density lipoprotein (HDL) cholesterol mass ratOrdered By: Rashad Teran on 02-07-2023 Cholesterol.total/Cho lesterol in HDL [Mass ratio] 2.4 {ratio} Normal <5.0 [facility] Comment on above: Order Comment: Reaso n for Exam Type 2 diabetes mellitus without complications Result Comment: PERF ORMED BY: [place] [address] PATHOLOGIST SANDER OPERATOR MARTINEZ GARZA M.D. Performed By: #### L IPID, CBC, URMACRERAT, CMP #### [facility] [address] [place] [address] [place] Sodium [Moles/volume] in Ser um or PlasmaOrdered By: Rashad Teran on 02-07-2023 Sodium [Moles/Vol] 139 mmol/L Normal 136-145 [facility] Comment on above: Order Comment: Reaso n for Exam Type 2 diabetes mellitus without complications Performed By: #### L IPID, CBC, URMACRERAT, CMP #### [facility] [address] Triglyceride [Mass/volume] i n Serum or PlasmaOrdered By: Rashad Teran on 02-07-2023 Triglyceride [Mass/Vol] 148 mg/dL 0-149 [facility] Comment on above: TRIG ATP III CLASSIF ICATIONTRIG less than 150 mg/dL NormalTRIG 150-199 mg/dL Borderline highTRIG 200-500 mg/dL High TRIG greater than 500 mg/dL Very highStandard traceable to the Center for Disease Conrtrol and Prevention (CDC) test method. Urea nitrogen [Mass/volume] in Serum or PlasmaOrdered By: Rashad Teran on 02-07-2023 Urea nitrogen [Mass/Vol] 15 mg/dL Normal 7-25 [facility] Comment on above: Order Comment: Reaso n for Exam Type 2 diabetes mellitus without complications Performed By: #### L IPID, CBC, URMACRERAT, CMP #### [facility] [address] Urine microalbumin/creatinin e mass ratioOrdered By: Rashad Teran on 02-07-2023 Albumin/Creatinine DL <= 20 mg/L (U) [Mass ratio] 5.0 mg/g 0.0-30.0 [facility] Comment on above: 30-300 mg/g indicate s an increased risk for diabetic nephropathy. Greater than 300 mg/g is consistent with clinical nephropathy. (Am. J. Kidney Disease 1994, 25:107) MM screening mammo BI w/CADo n 10-23-2022 MM screening mammo BI w/CAD [facility] [place] [address] [place] [address] Mammography Report Signed Patient: Mavis Pickard MR#: [id number] : 1960 Acct:[id number] Age/Sex: 62 / F ADM Date: 10/21/22 Loc: [place] Room: Type: [facility] CLI Attending Dr: Baltazar Strange DO Copies to: Jeffry/PreceptorRashad DO-S Baltazar Strange DO Ordering Provider: Baltazar Strange DO Date of Service: 10/21/22 MM/MM screening mammo BI w/CAD: screening;Screening mammogram, encounter for CLINICAL DATA: Screening for malignancy. BILATERAL SCREENING MAMMOGRAMS - FULL FIELD DIGITAL WITH TOMOSYNTHESIS AND CAD Tomosynthesis craniocaudal and mediolateral oblique views of both breasts were obtained using low- dose digital technique. Comparison is made to prior studies from June 23, 2017 through August 06, 2021. This examination was reviewed with the aid of CAD. The breast parenchyma has been largely replaced by fat. Benign calcifications are visualized. A biopsy marking clip is seen at the inferior slightly medial right breast. A stable asymmetry is present at the superior central left breast. There are no developing masses, typically malignant calcifications or architectural distortion. There has been no significant interval change. MM/MM screening mammo BI w/CAD IMPRESSION: NO MAMMOGRAPHIC EVIDENCE OF MALIGNANCY. ROUTINE FOLLOW-UP IS RECOMMENDED IN ONE YEAR. RESULT CODE: 2 Benign Findings(s) DENSITY CODE: 1 (<25% glandular) FOLLOW UP: 1YR The false-negative rate of mammography is approximately 10-percent. Management of a palpable abnormality must be based on clinical grounds. Patient was entered into a reminder system with a target due date for the next mammogram. Impression dictated by: Anai Gomez M.D.10/23/2022 7:17 AM Dictation Location: [facility] Transcribed By: [facility] 10/23/22 07 Dictated By: Anai Gomez MD 10/23/22 0714 Signed By: 10/23/[address] [facility] A1C HEMOGLOBINon 10-16-2022 HbA1c (Bld) [Mass fraction] 7.0 % fruux Other HbA1c (Bld) [Mass fraction]o n 10-16-2022 A1C HEMOGLOBIN ADmantX Other A1C HEMOGLOBINon 06-26-2022 HbA1c (Bld) [Mass fraction] 8.6 % fruux Other HbA1c (Bld) [Mass fraction]o n 06-26-2022 A1C HEMOGLOBIN ADmantX Other A1C HEMOGLOBINon 03-02-2022 HbA1c (Bld) [Mass fraction] 9.0 % [facility] Remind Other HbA1c (Bld) [Mass fraction]o n 03-02-2022 A1C HEMOGLOBIN [facility] Remind Other Progress Note-Physicianon Protein mass conc Patient: ELEANOR PICKARD Age: 58 years Sex: Female : 1960 Associated Diagnoses: None Author: Yoni Noland JR, DO Postoperative Information Post Operative Note: Post Anesthesia Care Unit. Anesthetic utilized: Regional: Neuraxial. Health Status Allergies: Allergic Reactions (Selected)ModeratePenicill in- Rash.Sulfamethoxazole- Rash. Current medications: (Selected) PrescriptionsPrescribedPer cocet 325 mg-5 mg Tab: 1 tab(s), Oral, q4hr as needed for pain, 40 tab(s), Refill(s) 0, [id number] 07/15/18: Sodium level on 07/15/18, Results to PCP, Print Requisition, Supplyaspirin 81 mg Oral EC Tab: 81 mg = 1 tab(s), Oral, BID, Take with food, X 30 day(s), # 60 tab(s), Refills(s) 0, other reason (Rx)Documented MedicationsDocumentedColac e 100 mg Cap: 100 mg = 1 cap(s), Oral, BID, PRN Constipation, Refills(s) 0Dulcolax 5 mg Tab-EC: 10 mg = 2 tab(s), Oral, Daily, PRN Constipation, Refills(s) 0FLUoxetine 60 mg oral tablet: 60 mg = 1 tab(s), Oral, Daily, Refills(s) 0, DepressionFlovent Diskus 250 mcg inhalation powder: 250 microgram, Inhalation, BID, Refills(s) 0, AsthmaJanuvia 100 mg Tab: 100 mg = 1 tab(s), Oral, Daily, # 30 tab(s), Refills(s) 0, Blood glucoseLantus Solostar Pen 100 units/mL subcutaneous solution: 15 unit(s), SubCutaneous, Daily, Refills(s) 0, Blood glucosePro-Air HFA CFC free 90 mcg/inh MDI: 2 puff(s), Inhalation, QID Shortness of breath or wheezing, Refill(s) 0, AsthmabusPIRone 30 mg oral tablet: 60 mg = 2 tab(s), Oral, Daily, # 180 tab(s), Refills(s) 0, Depressionmetformin 1000 mg Tab: 1,000 mg = 1 tab(s), Oral, BID, Refills(s) 0, Blood glucose Problem list: All ProblemsDiabetes mellitus, insulin dependent (IDDM), controlled / SNOMED CT 060299768 / ConfirmedAsthma / SNOMED CT 957145989 / ConfirmedLocalized osteoarthritis of knee / SNOMED CT 022718099 / Confirmed Physical Examination Intake and Output Denies significant n/v and is tolerating p.o. No qualifying data available Respiratory: Adequate air exchange with presybeterian of preoperative function.. Cardiovascular: Cardiovascular function is stable and has returned to preoperative levels.. Neurologic: Pt has returned to preoperative baseline.. Review / Management Condition: Stable. Assessment Anesthetic outcome No anesthetic complications noted. Plan Transfer/ Discharge: Patient can be discharged from PACU when criteria met. Condition good. Normal [facility] Comment on above: Result Comment: Elec tronically Signed By: Yoni Noland JR, DO\.br\Date and Time Signed: 07/22/18 12:19 EST Protein mass conc Patient: ELEANOR PICKARD Age: 58 years Sex: Female : 1960 Associated Diagnoses: None Author: Yoni Noland JR, DO Postoperative Information Post Operative Note: Post Anesthesia Care Unit. Anesthetic utilized: Regional: Neuraxial. Health Status Allergies: Allergic Reactions (Selected)ModeratePenicill in- Rash.Sulfamethoxazole- Rash. Current medications: (Selected) Inpatient MedicationsOrderedDilaudid 2 mg Injection: 0.4 mg = 0.2 mL, Injection, IV Push, q4min PRN Pain for 8 hour(s), Stop date 07/12/18 16:51:00 EST, Routine, Start date 07/12/18 8:52:00 ESTExparel 1.3% (13.3 mg/mL) injectable suspension: 266 mg = 20 mL, Injection, Misc, Once, Stop date 07/12/18 9:00:00 EST, Routine, Start date 07/12/18 9:00:00 EST, 20 ml given to field with 50 ml 0.9% sodium chloride and 30 ml 0.25% Sensorcaine with epinephrineLactated Ringers IV Zoey 1000 mL 1,000 mL: 1,000 mL, IV, 100 mL/hr, Routine, Start date 07/12/18 8:52:00 EST, 10 hour(s), Total volume (mL): 1,000Lactated Ringers IV Zoey 1000 mL 1,000 mL: 1,000 mL, IV, 150 mL/hr, Routine, Start date 07/12/18 6:00:00 EST, 6.7 hour(s), Total volume (mL): 1,000Ofirmev 10 mg/mL intravenous solution: 1,000 mg = 100 mL, Soln-IV, IV Piggyback, Once, Stop date 07/12/18 9:00:00 EST, Routine, Start date 07/12/18 9:00:00 EST, 400 mL/hr, Infuse over 15 minute(s), to be given during total joint replacementPhenergan 25 mg/mL Injection: 12.5 mg = 0.5 mL, Injection, IV Push, q2min PRN Other (see comment) for 2 dose(s), Stop date Limited # of times, Routine, Start date 07/12/18 8:52:00 ESTtranexamic acid 1000 mg/ 50 mL NS IVPB: 1,000 mg = 50 mL, Soln-IV, IV Piggyback, Once, Stop date 07/12/18 9:00:00 EST, Routine, Start date 07/12/18 9:00:00 EST, 100 mL/hr, Infuse over 30 minute(s)Documented MedicationsDocumentedFLUox etine 60 mg oral tablet: 60 mg = 1 tab(s), Oral, Daily, Refills(s) 0, DepressionFlovent Diskus 250 mcg inhalation powder: 250 microgram, Inhalation, BID, Refills(s) 0, AsthmaJanuvia 100 mg Tab: 100 mg = 1 tab(s), Oral, Daily, # 30 tab(s), Refills(s) 0, Blood glucoseLantus Solostar Pen 100 units/mL subcutaneous solution: 15 unit(s), SubCutaneous, Daily, Refills(s) 0, Blood glucosePro-Air HFA CFC free 90 mcg/inh MDI: 2 puff(s), Inhalation, QID Shortness of breath or wheezing, Refill(s) 0, AsthmabusPIRone 30 mg oral tablet: 60 mg = 2 tab(s), Oral, Daily, # 180 tab(s), Refills(s) 0, Depressionmetformin 1000 mg Tab: 1,000 mg = 1 tab(s), Oral, BID, Refills(s) 0, Blood glucose Problem list: All ProblemsDiabetes mellitus, insulin dependent (IDDM), controlled / SNOMED CT 367937917 / ConfirmedAsthma / SNOMED CT 341146510 / ConfirmedLocalized osteoarthritis of knee / SNOMED CT 756307312 / Confirmed Physical Examination Intake and Output Denies significant n/v and is tolerating p.o. Vital Signs (last 24 hrs) Last Charted Temp Oral 36.4 DegC (JUL 12:)Heart Rate Apical 84 bpm (JUL 12:)Resp Rate 16 br/min (JUL 12 06:)SBP H 156 mmHg (JUL 12:)DBP 74 mmHg (JUL 12 06:)SpO2 97 % (JUL 12 06:) Pain assessment: Pain Assessment 07/12/2018 06:14 EST Preliminary Pain Scale 0 07/12/2018 06:14 EST Pain Symptoms Self Report No, able to self report . Respiratory: Adequate air exchange with presybeterian of preoperative function.. Cardiovascular: Cardiovascular function is stable and has returned to preoperative levels.. Neurologic: Pt has returned to preoperative baseline.. Review / Management Condition: Stable. Assessment Anesthetic outcome No anesthetic complications noted. Plan Transfer/ Discharge: Patient can be discharged from PACU when criteria met. Condition good. Normal [facility] Coding Summary.on 07-16-2018 Coding Summary. CODING DATE: 018 FINAL [facility] STATUS: Home w/ Home Health PAYOR: [place] Grouper: 470 MS-DRG MAJOR HIP AND KNEE JOINT REPLACEMENT OR REATTACHMENT OF LOWER EXTREMITY W/O DETENTION Low Trim 0 High Trim 999 302 APR-DRG KNEE JOINT REPLACEMENT Severity of Illness Moderate Risk of Mortality Minor ADMIT DX: M17.11 Unilateral primary osteoarthritis, right knee REASON FOR VISIT DX: FINAL DX: PRINCIPAL: M17.11 Y Unilateral primary osteoarthritis, right knee SECONDARY: E87.1 N Hypo-osmolality and hyponatremia Z68.41 1 Body mass index (BMI) 40.0-44.9, adult D64.9 N Anemia, unspecified J45.909 Y Unspecified asthma, uncomplicated E11.9 Y Type 2 diabetes mellitus without complications Z79.4 1 detention (current) use of insulin E66.9 Y Obesity, unspecified F32.9 Y Major depressive disorder, single episode, unspecified PROCEDURES DOCTOR NAME DATE [id number] Replacement of Right Knee Joint Abrahan Pruett DO 07/12/2018 with Synthetic Substitute, Cemented, Open Approach [id number] Introduction of Anesthetic Yoni Noland JR, DO 07/12/2018 Agent into Peripheral Nerves and Plexi, Percutaneous Approach NOTE: The code number assigned matches the documented diagnosis and / or procedure in the patient's chart. However, the narrative phrase printed from the coding software may appear abbreviated, or result in slightly different terminology. Coded By: Radha Ch Date Saved: 07/16/2018 08:23 am [facility] Coding Summary.on 07-15-2018 Coding Summary. CODING DATE: 018 [facility] STATUS: PAYOR: [place] ADMIT DX: REASON FOR VISIT DX: E87.1 Hypo-osmolality and hyponatremia FINAL DX: PRINCIPAL: E87.1 Hypo-osmolality and hyponatremia SECONDARY: PROCEDURES DOCTOR NAME DATE NOTE: The code number assigned matches the documented diagnosis and / or procedure in the patient's chart. However, the narrative phrase printed from the coding software may appear abbreviated, or result in slightly different terminology. Coded By: Shell Nesbitt CphT Date Saved: 07/15/2018 01:38 pm [facility] Main [place] Intraoperative Recor don 07-15-2018 Main OR Intraoperative Record IntraOp Document Type FT Summary Primary Physician: Abrahan Pruett DO Finalized Date/Time: 07/15/18 14:25:27 Pt. Name: MAVIS PICKARD/Sex: 1960 Female Med Rec #: [id number] Physician: Abrahan Pruett DO Financial #: [id number] Pt. Type: I Room/Bed: N316/01 Admit/Disch: 07/12/18 05:38:00 - 07/13/18 15:35:00 Institution: Case Times FT Entry 1 Patient Times In Room 07/12/18 07:44:00 Out Room 07/12/18 10:08:00 Procedure Times Start 07/12/18 08:19:00 Stop 07/12/18 10:05:00 Anesthesia Times Start 07/12/18 07:44:00 Stop 07/12/18 10:08:00 Block Timeout w/ 07/12/18 07:08:00 Anesthesia Last Modified By: Kelley Boggs CST 07/12/18 10:08:14 General Comments: [id number] - patient taken to block room hooked to monitros HR 76, sating 96% on RA and block performed by Dr. Noland USING ULTRASOUND AND AREA PREPPED WITH CHLORAPREP, Petros MENDIOLA RN ASSIST, PATIENT TOLERATED WELL, PATIENT THEN TAKEN BACK TO ASU AND HOOKED TO MONITORS AND NURSE IN ASU GIVEN REPORT. - STANLEY POSADA 0754- SPINAL DONE IN OR BY NAZ RAYMOND, PATIENT SITTING AT EDGE OF BED, Petros MENDIOLA RN ASSIST, PATIENT ASSISTED TO SUPINE POSITION AFTER SPINAL COMPLETED, PATIENT TOLERATED WELL. Stacie ANGEL RN 07/15/18 Chart opened to review and send charges Cammie Boggs CST Case Attendance FT Entry 1 Entry 2 Entry 3 Case Attendee Naz Alfred DO, Steven Rivera RN, [facility] Performed Anesthesiologist Surgeon - Primary SCRAPER HAND Agricultural Extension Officer Time In 07/12/18 07:44:00 07/12/18 08:02:00 07/12/18 07:44:00 Time Out 07/12/18 10:08:00 07/12/18 09:42:00 07/12/18 10:08:00 Procedure KNEE TOTAL KNEE TOTAL KNEE TOTAL ARTHROPLASTY(Right) ARTHROPLASTY(Right) ARTHROPLASTY(Right) Comments DR NOLAND SUPERVISING Last Modified By: Nahum RN, Paris 07/12/18 Nahum RN, Paris 07/12/18 Nahum RN, Paris 07/12/18 10:11:04 10:11:04 10:11:04 Entry 4 Entry 5 Entry 6 Case Attendee Nahum RN, Paris Harrington RN, Latrice Fontana HOG RAISER, Geovanna Ochoa Role Performed Tiltrotor Crew Chief - Primary Tiltrotor Crew Chief - Primary Scrub - Primary Time In 07/12/18 07:50:00 07/12/18 07:44:00 07/12/18 07:44:00 Time Out 07/12/18 10:08:00 07/12/18 09:44:00 07/12/18 09:44:00 Procedure KNEE TOTAL KNEE TOTAL KNEE TOTAL ARTHROPLASTY(Right) ARTHROPLASTY(Right) ARTHROPLASTY(Right) Comments Last Modified By: Nahum RN, Paris 07/12/18 Nahum RN, [place] 07/12/18 Nahum RN, [place] 07/12/18 10:11:04 10:11:04 10:11:04 Entry 7 Entry 8 Case Attendee Jean ESCOBAR, Meseret Mendiola RN, CNOR, CRNFA, ONC, Kristina Role Performed Scrub - Other Staff - Other Time In 07/12/18 07:46:00 07/12/18 07:44:00 Time Out 07/12/18 10:08:00 07/12/18 08:10:00 Procedure KNEE TOTAL KNEE TOTAL ARTHROPLASTY(Right) ARTHROPLASTY(Right) Comments OUTSIDE COMMUNICATIONS SCIENTIST Last Modified By: Nahum RN, Paris 07/12/18 Nahum RN, [place] 07/12/18 10:11:04 10:11:04 General Comments: CELESTINO [place]IS PRESENT FOR PROCEDURE. Stacie ANGEL RNbusiness investor Protocols FT Pre-Care Text: Implements protective measures prior to operative or invasive procedure, confirms identity before the operative or invasive procedure, verifies operative procedure, surgical site, and laterality Entry 1 Procedure(s) KNEE TOTAL Patient Identity Birthday, Blood Band, ARTHROPLASTY(Right) Verified (select at ID Band Check, Patient least 2): Participation Consents / H and P Anesthesia Consent, Operative Site Present Verified HandP, Surgery/Procedure Marking Verified Consent, Transfusion Consent Surgical Site Yes Laterality Verified Yes Verified Procedure Verified Yes Correct Patient Yes Position Verified Availability Equipment, Implant, Prep Dry Yes Verified (If Medication, X-ray Applicable) PreOp Antibiotic Yes Time Out Naz Alfred, Given Participants Abrahan Pruett DO, Rivera RN, Nahum Horowitz RN, Len Toledo RNLatrice Churchill CST, Gwen E, Ott CST, Macie C Time Out Complete 07/12/18 08:16:00 Outcomes Met? Yes Last Modified By: Latrice Harrington RN 07/12/18 08:27:20 Post-Care Text: The patient is free from signs and symptoms of injury caused by extraneous objects Allergy Information FT Pre-Care Text: Verifies allergies Entry 1 Allergies Reviewed? Yes Allergies Reviewed Self/Patient With Outcomes Met? Yes Last Modified By: Latrice Harrington RN 07/12/18 08:27:28 Post-Care Text: The patient received appropriate medication(s) safely administered during the perioperative period Surgical Procedures FT Entry 1 Procedure Description Procedure KNEE TOTAL ARTHROPLASTY Modifiers Right Surgeon Description RIGHT TOTAL KNEE ARTHROPLASTY COMPLICATED BY OBESITY Primary Procedure Yes Primary Surgeon Abrahan Pruett DO 07/12/18 08:19:00 Stop 07/12/18 10:05:00 Anesthesia Type MAC Surgical Service Orthopedics Wound Class 1 - Clean Last Modified By: Paris Sidhu RN 07/12/18 10:11:06 General Case Data FT Pre-Care Text: Classifies surgical wound, implements aseptic technique, initiates traffic control Entry 1 Case Information OR OR 7 FT Case Level Level 6 Wound Class 1 - Clean Specialty Orthopedics ASA Class 3 Preop Diagnosis RIGHT KNEE Postop Same As Preop Yes OSTEOARTHRITIS, BMI 44.01 Postop Diagnosis RIGHT KNEE Outcomes Met? Yes OSTEOARTHRITIS, BMI 44.01 Last Modified By: Kelley Boggs CST 07/15/18 14:25:23 Post-Care Text: The patient is free from signs and symptoms of infection Skin Assessment (Pre Procedure) FT Pre-Care Text: Implements protective measures to prevent skin/ tissue injury due to thermal or mechanical sources Evaluates for signs and symptoms of physical injury to skin and tissue Entry 1 Skin Integrity Other/See Comments Skin Abnormality Yes Abnormality Location SMALL ABRASION ON RIGHT Outcomes Met? Yes ANKLE Last Modified By: Latrice Harrington RN 07/12/18 08:28:28 Post-Care Text: The patient is free from signs and symptoms of injury caused by extraneous objects Patient Positioning FT Pre-Care Text: Identifies physical alterations that require additional precautions for procedure-specific positioning, verifies presence of prosthetics or corrective devices, positions the patient, evaluates the patient for signs and symptoms of injury as a result of positioning Entry 1 Procedure KNEE TOTAL Additional FOLDED BLANKET UNDER ARTHROPLASTY(Right) Information LEFT LOWER LEG Body Position Supine Feet Uncrossed? Yes Left Arm Position Extended on Padded Arm Right Arm Position Extended on Padded Arm Board Board Left Leg Position Extended Right Leg Position Held on Field Positioning Device Padded Armboard, Pillow Press Points Checked Yes Under Head Large, Safety Strap, Other/See Comments By Naz Alfred, Outcomes Met? Yes Harjeet RN, Nahum Horowitz RN, Len Toledo RN, Hernan Roberson RN, CNOR, CRNFA, ONCKristina Last Modified By: Latrice Harrington RN 07/12/18 08:29:18 Post-Care Text: The patient is free from signs and symptoms of injury related to positioning Patient Care Devices FT Pre-Care Text: Implements protective measures to prevent skin/ tissue injury due to thermal or mechanical sources Entry 1 Entry 2 Entry 3 Equipment Type CAUTERY UNIT[F] BISHOP SYSTEM[F] INTERPULSE[F] Equipment Number [id number] Equipment Setting Outcomes Met? Yes Yes Yes Last Modified By: Latrice Harrington RN, RN, Latrice Tabares RN 07/12/18 07:39:45 07/12/18 07:39:45 07/12/18 07:39:45 Entry 4 Entry 5 Entry 6 Equipment Type MISTRAL FORCED AIR MONITOR CHARGE SURGERY RITA SUCTION UNIT [F] WARMING SYSTEM UNIT[F] [F] Equipment Number M2 Equipment Setting Outcomes Met? Yes Yes Yes Last Modified By: Latrice Harrington RN, RN, Latrice Tabares RN 07/12/18 07:39:45 07/12/18 07:39:45 07/12/18 07:39:45 Entry 7 Entry 8 Equipment Type SONOSITE ULTRASOUND TOURNIQUET JIMBO [F] UNIT[F] Equipment Number C Equipment Setting Outcomes Met? Yes Yes Last Modified By: Latrice Harrington RN, RN, Emily A 07/12/18 07:39:45 07/12/18 07:39:45 Post-Care Text: The patient is free from signs and symptoms of injury caused by extraneous objects Transport To OR FT Pre-Care Text: Transports according to individual needs. Evaluates for signs and symptoms of skin and tissue injury as a result of transfer or transport Entry 1 Via Cart By Latrice Harrington RN Safety Precautions Side Rails Up Outcomes Met? Yes Last Modified By: Latrice Harrington RN 07/12/18 08:29:34 Post-Care Text: The patient is free from signs and symptoms of injury related to transfer/transport Cautery FT Pre-Care Text: Implements protective measures to prevent injury due to electrical sources, and evaluates for signs and symptoms of electrical injury Entry 1 ESU Identification Equipment Number C1 ESU Settings Cut 50 Coag 50 ESU Grounding Pad Site Left Thigh Hair Removal Pad Yes Site Pre Pad Site Clear and Intact Post Pad Site Clear and Intact Condition Condition Grounding Pad Paris Sidhu RN Placed By Outcomes Met? Yes Last Modified By: Latrice Harrington RN 07/12/18 08:30:17 Post-Care Text: The patient if free from signs and symptoms of electrical injury Counts Verification FT Pre-Care Text: Performs required counts Entry 1 Entry 2 Entry 3 Procedure(s) KNEE TOTAL KNEE TOTAL KNEE TOTAL ARTHROPLASTY(Right) ARTHROPLASTY(Right) ARTHROPLASTY(Right) Type Initial Closing Final Items Sponges, Sharps Sponges, Sharps Sponges, Sharps Status Correct Correct Correct Time 07/12/18 07:44:00 07/12/18 09:41:00 07/12/18 09:44:00 By Hernan RN, CNOR, CRLALI, Latrice Harrington RN, Coy RN, Emily A, Kristina AGUILAR Churchill Floral HOG RAISER, Geovanna E Floral HOG RAISER, Geovanna E HOG RAISER, Geovanna E Outcomes Met? Yes Yes Yes Last Modified By: Latrice Harrington RN, RN, Emily A Coy RN, Emily A 07/12/18 08:30:58 07/12/18 09:42:39 07/12/18 09:44:41 Post-Care Text: The patient is free from signs and symptoms of injury caused by extraneous objects Skin Prep FT Pre-Care Text: Performs skin preparations Entry 1 Procedure KNEE TOTAL Prep Area entire leg from upper ARTHROPLASTY(Right) thigh to ankle RIGHT Prep Agents Chloraprep/Dry Prior to Draping Hair Removal Methods Not Indicated By Paris Sidhu RN Outcomes Met? Yes Last Modified By: Latrice Harrington RN 07/12/18 08:31:57 Post-Care Text: The patient is free from signs and symptoms of infection Departure From OR FT Pre-Care Text: Transports according to individual needs. Evaluates for signs and symptoms of skin and tissue injury as a result of transfer or transport. Entry 1 Via Patient Bed Safety Precautions Side Rails Up PostOp Destination PACU Transported By Paris Sidhu RN Patient Status Stable Skin. Condition Dry, Warm Description RIGHT KNEE INCISION, OTHER SKIN UNCHANGED Airway Maintenance Oxygen in Use? Yes Airway Device Simple Mask Flow Rate 8 L/min Outcomes Met? Yes Last Modified By: Paris Sidhu RN 07/12/18 10:11:20 Post-Care Text: The patient is free from signs and symptoms of injury related to transfer/transport General Comments: REPORT GIVEN TO BIOINFORMATICS RESEARCH TECHNICIANRN. Stacie ANGEL RN Dressing/Packing FT Pre-Care Text: Administers care to wound sites Entry 1 Type Dressing Site and Details liquiband, aquacel, kerlix, double 6 yves TO RIGHT KNEE Outcomes Met? Yes Last Modified By: Latrice Harrington RN 07/12/18 08:46:28 Post-Care Text: The patient is free from signs and symptoms of infection Medication Administration FT Pre-Care Text: Verifies allergies, administers prescribed medications and solutions, administers prescribed antibiotic therapy and immunizing agents as ordered, evaluates response to medications Administers prescribed medications and solutions Entry 1 Route of Admin Field Expiration Date Yes Verified Outcomes Met? Yes Last Modified By: Latrice Harrington RN 07/12/18 08:33:02 Post-Care Text: The patient received appropriate medication(s) safely administered during the perioperative period For [place] please see scanned medication reconcilliation form for medications used at the field during the procedure. Tourniquet FT Pre-Care Text: Implements protective measures to prevent skin/tissue injury due to mechanical sources Entry 1 Tourniquet Type TOURNIQUET CUFF PURPLE Setting 375 mmHg 34 X 4 [[id number]][F] Equipment Number C Placement Right Upper Thigh Cuff Size 34 Padding Under Cuff Yes Applied Applied By Paris Sidhu RN, Rivera Skin Assessment Unremarkable Carlos Manuel POSADA Before Inflation Skin Assessment Unremarkable After Inflation Tourniquet Times Inflated 07/12/18 08:18:00 Deflated 07/12/18 10:04:00 Total Time 105 minute(s) Outcomes Met? Yes Last Modified By: Paris Sidhu RN 07/12/18 10:05:03 Post-Care Text: The patient is free from signs and symptoms of injury caused by extraneous objects Implant Log FT Pre-Care Text: Records devices implanted during the operative or invasive procedure Entry 1 Entry 2 Entry 3 Implant/Explant Implant Implant Implant Implant Identification Description CEMENT SIMPLEX P CEMENT SIMPLEX P TRIATHLON X3 TIBIAL W/TOBRAMYCIN ANTIBIOTIC W/TOBRAMYCIN ANTIBIOTIC BEARING INSERT - PS BONE [[id number]][F] BONE [6197-9-001][F] Serial Number Lot Number [id number] Sterile Process Coordinator FT-HOWJelasticCA FT-HOWJelasticCA JIMBO Catalog ?# [id number] [F] [id number] [F] [id number] Size FULL DOSE FULL DOSE 5 9MM THKNS Expiration Date 12/28/19 11/27/19 09/27/18 Usage Data Implant Site RIGHT KNEE RIGHT KNEE RIGHT KNEE Quantity 1 1 1 Temperature Reconstitution Method Outcomes Met? Yes Yes Yes Last Modified By: Len POSADA, Latrice Harrington RN, Latrice Tabares RN 07/12/18 08:43:13 07/12/18 08:43:13 07/12/18 09:20:02 Entry 4 Entry 5 Implant/Explant Implant Implant Implant Identification Description TRIATHLON POSTERIOR TRIATHLON PRIMARY STABILIZED FEMORAL TIBIAL BASEPLATE Serial Number Lot Number [id number] Sterile Process Coordinator JIMBO JIMBO Catalog ?# [id number] Size #5 RT PS #5 Expiration Date 04/24/23 10/16/22 Usage Data Implant Site RIGHT KNEE RIGHT KNEE Quantity 1 1 Temperature Reconstitution Method Outcomes Met? Yes Yes Last Modified By: Latrice Harrington RN, RN, Emily A 07/12/18 09:20:02 07/12/18 09:20:02 Post-Care Text: The patient is free from signs and symptoms of injury caused by extraneous objects Urinary Catheter Pre-Care Text: Patient is prepped using sterile technique. Entry 1 Urinary Catheter TRAY URINE RAVI CATH Present Upon Arrival No Inserted LF 16FR [[id number]][F] Insertion Date/Time 07/12/18 08:02:00 Urine Residual 110 Insertion Site Uretheral Urine YELLOW/ CLOUDY URINE Characteristics Inserted By Prais Sidhu RN Discontinued? No Outcomes Met? Yes Last Modified By: Latrice Harrington RN 07/12/18 08:34:12 Post-Care Text: The patient is free from signs of trauma. Cultures and Specimens FT Pre-Care Text: Manages specimen handling and disposition Manages culture specimen collection Entry 1 Cultures Ordered Yes Culture Disposition Designated OR Area Culture Source URINE FROM SALGUERO Specimens Ordered Yes Specimen Disposition Designated OR Area Frozen Section Times Outcomes Met? Yes Last Modified By: Latrice Harrington RN 07/12/18 08:35:27 Post-Care Text: The patient is free from signs and symptoms of injury caused by extraneous objects The patient is free from signs and symptoms of infection General Comments: SPECIMEN: RIGHT KNEE BONE AND SOFT TISSUE. Stacie ANGEL RN Temperature Control Entry 1 Temperature Control BLANKET MISTRAL AIR Quantity 1 Aid TORSO [[id number]][F] Fluid/[place] Mistral warming system Setting HIGH/43 Body Site Upper anterior torso Last Modified By: Latrice Harrington RN 07/12/18 08:35:52 Case Comments Finalized By: Kelley Boggs CST Document Signatures Signed By: Paris Sidhu RN 07/12/18 10:11 Kelley Boggs CST 07/15/18 14:25 Normal [facility] Sodiumon 07-15-2018 Sodium molar conc 134 mmol/L Low 135-145 [facility] Comment on above: Performed By: #### 1 [id number] ####[facility] [id number] [place] [address] Inpatient Clinical Summaryon 07-14-2018 Inpatient Clinical Summary [address] [address] Clinical Summary Person Information:Name: MAVIS PICKARD Age: 58 Years : 1960 12:00 AM Sex: Female PCP: RASHAD TERAN DO Marital Status: Race:White Ethnicity:Non- or Language:H[place]er Visit Id: Visit Reason:RIGHT KNEE OA Speciality: Acuity: Enc Type: Inpatient Med Service: Surgery Arrival:07/12/2018 5:38 AM Discharge: 07/13/2018 3:35 PM Dispo Type: Home w/ Home Health Address:[address] [place] [id number] Provider Notes: Diagnosis:1:Knee osteoarthritis; 2:Anemia; 3:Hyponatremia; 4:Asthma; 5:Diabetes mellitus type 2, insulin dependent; 6:Obesity; 7:Depression; 8:No contraindication to deep vein thrombosis (DVT) prophylaxis Problems Active Asthma Smoking Status: Functional Status:Sensory Deficits: History of Falls: Mobility Assistance Prior to Admission: ADLs: Minimal assistanceCurrent Level of Assistance for Self-Care/Mobility: Cognitive Status: Allergies penicillin (Rash) sulfamethoxazole (Rash) Measurements:Height: 170 cmWeight: 123.8 kgBlood Pressure: 144 mmHg / 83 mmHgBMI: Procedures KNEE TOTAL ARTHROPLASTY (07/12/2018) Immunizations No Immunizations Documented This Visit Final Med List:acetaminophen-oxycodo ne (Percocet 325 mg-5 mg Tab) 1 Tabs By Mouth every 4 hours as needed as needed for pain. Refills: 0.albuterol (Pro-Air HFA CFC free 90 mcg/inh MDI) 2 Puffs Inhalation 4 times a day as needed Shortness of breath or wheezing.aspirin (aspirin 81 mg Oral EC Tab) 1 Tabs By Mouth 2 times a day for 30 Days. Take with food. Refills: 0.bisacodyl (Dulcolax 5 mg Tab-EC) 2 Tabs By Mouth every day as needed Constipation.busPIRone (busPIRone 30 mg oral tablet) 2 Tabs By Mouth every day.docusate (Colace 100 mg Cap) 1 Capsules By Mouth 2 times a day as needed Constipation.fluoxetine (FLUoxetine 60 mg oral tablet) 1 Tabs By Mouth every day.fluticasone (Flovent Diskus 250 mcg inhalation powder) 250 Microgram Inhalation 2 times a day.insulin glargine (Lantus Solostar Pen 100 units/mL subcutaneous solution) 15 Units Subcutaneous every day.metformin (metformin 1000 mg Tab) 1 Tabs By Mouth 2 times a day.Misc Prescription (Sodium level on 07/15/18) 0. Results to PCP. Refills: 0.sitagliptin (Januvia 100 mg Tab) 1 Tabs By Mouth every day. Care Team Members:Attending Physician: Zeina Pruett DOulting Physician: Referring Physician: Abrahan Pruett DO Follow up:With: Address: When: Abrahanlouis Pruett [facility] [address] [address] Business (1) 08/07/2018 2:00 PM With: Address: When: RASHAD TERAN [address] [place] [id number] Business (1) Patient Education Information: Osteoarthritis; Hyponatremia, Caba-qt-Rohk; Flynn - Post Op Total Knee Arthroplasty (Revised 2016) (CUSTOM)Percocet 325 mg-5 mg Tab Normal [facility] Inpatient Patient Summaryon 07-14-2018 Inpatient Patient Summary [address] [address] Patient Discharge Instructions PERSON INFORMATION Name: MAVIS PICKARD Date of : 1960 12:00 AM Current Date: 07/14/18 09:43:55 PHYSICIANS Admitting Phys[facility]: RASHAD TERAN DO Comment: Discharge Diagnosis: 1:Knee osteoarthritis; 2:Anemia; 3:Hyponatremia; 4:Asthma; 5:Diabetes mellitus type 2, insulin dependent; 6:Obesity; 7:Depression; 8:No contraindication to deep vein thrombosis (DVT) prophylaxisCondition at Discharge: MAVIS Thapa has been given the following list of follow-up instructions, prescriptions, and patient education materials: PATIENT FOLLOW-UP INFORMATIONDiet: Calorie Controlled- 1800 Calorie Diet, Fat Modified- 50 gram, Low Sodium- 2000 mgDischarge Activity: Ambulate as tolerated, Activity as toleratedDischarge Restrictions: Wound Care Instructions: Remove Your Dressing In DaysCall Your Doctor For: Return to Work: IF UNABLE TO CONTACT YOUR PHYSICIAN AND YOU FEEL IT IS AN EMERGENCY, GO TO THE NEAREST EMERGENCY ROOM OR CALL 911 Home Treatment: Devices/Equipment: Crutches, Walker - front wheeled, Other: knee scooterSpecial Services: Additional Instructions: Primary Care Physician to provide the following pending test results: NoneFollow up:With: Address: When: Abrahan Pruett [facility] [address] [address] Business (1) 08/07/2018 2:00 PM With: Address: When: RASHAD JEFFRY [address] [place] [address] [place] [id number] Business (1) In the event that this physician does not participate in your insurance network, please consult with your insurance company to find a nearby participating provider. Comment: NEERAJ Crowe CYNTHIA S, have received the attached patient education materials/instructions and have verbalized understanding:Patient Signature __ Date Clinican/Nu rse Signature Date HERE ARE THE MEDICATION CHANGES THAT OCCURRED DURING YOUR HOSPITAL STAY New [facility]ations[id number] [address] [facility] [address] [place] [phone], [phone]-oxycodon e (Percocet 325 mg-5 mg Tab) 1 Tabs By Mouth every 4 hours as needed as needed for pain. Refills: 0.Last Dose: N ext Dose: P rinted PrescriptionsMisc Prescription (Sodium level on 07/15/18) 0. Results to PCP. Refills: 0.Patient Instructions: Call your PCP for resultsLast Dose: N ext Dose: O ther Medicationsaspirin (aspirin 81 mg Oral EC Tab) 1 Tabs By Mouth 2 times a day for 30 Days. Take with food. Refills: 0.Last Dose: N ext Dose: b isacodyl (Dulcolax 5 mg Tab-EC) 2 Tabs By Mouth every day as needed Constipation.Last Dose: N ext Dose: d ocusate (Colace 100 mg Cap) 1 Capsules By Mouth 2 times a day as needed Constipation.Last Dose: N ext Dose: M edications to Continue with No ChangesOther Medicationsalbuterol (Pro-Air HFA CFC free 90 mcg/inh MDI) 2 Puffs Inhalation 4 times a day as needed Shortness of breath or wheezing.Last Dose: N ext Dose: b usPIRone (busPIRone 30 mg oral tablet) 2 Tabs By Mouth every day.Last Dose: N ext Dose: f luoxetine (FLUoxetine 60 mg oral tablet) 1 Tabs By Mouth every day.Last Dose: N ext Dose: f luticasone (Flovent Diskus 250 mcg inhalation powder) 250 Microgram Inhalation 2 times a day.Last Dose: N ext Dose: i nsulin glargine (Lantus Solostar Pen 100 units/mL subcutaneous solution) 15 Units Subcutaneous every day.Last Dose: N ext Dose: m etformin (metformin 1000 mg Tab) 1 Tabs By Mouth 2 times a day.Last Dose: N ext Dose: s itagliptin (Januvia 100 mg Tab) 1 Tabs By Mouth every day.Last Dose: N ext Dose: C omment: MEDICATION LIST PROVIDED FOR YOU IS A LIST OF YOUR CURRENT MEDICATIONS. PLEASE CARRY THIS WITH YOU AT ALL TIMES. acetaminophen-oxycodone (Percocet 325 mg-5 mg Tab) 1 Tabs By Mouth every 4 hours as needed as needed for pain. Refills: 0.albuterol (Pro-Air HFA CFC free 90 mcg/inh MDI) 2 Puffs Inhalation 4 times a day as needed Shortness of breath or wheezing.aspirin (aspirin 81 mg Oral EC Tab) 1 Tabs By Mouth 2 times a day for 30 Days. Take with food. Refills: 0.bisacodyl (Dulcolax 5 mg Tab-EC) 2 Tabs By Mouth every day as needed Constipation.busPIRone (busPIRone 30 mg oral tablet) 2 Tabs By Mouth every day.docusate (Colace 100 mg Cap) 1 Capsules By Mouth 2 times a day as needed Constipation.fluoxetine (FLUoxetine 60 mg oral tablet) 1 Tabs By Mouth every day.fluticasone (Flovent Diskus 250 mcg inhalation powder) 250 Microgram Inhalation 2 times a day.insulin glargine (Lantus Solostar Pen 100 units/mL subcutaneous solution) 15 Units Subcutaneous every day.metformin (metformin 1000 mg Tab) 1 Tabs By Mouth 2 times a day.Misc Prescription (Sodium level on 07/15/18) 0. Results to PCP. Refills: 0.sitagliptin (Januvia 100 mg Tab) 1 Tabs By Mouth every day.Pharmacy Information: [facility] Comment: PATIENT EDUCATION INFORMATIONInstructions:Os teoarthritisOsteoarthritis is a disease that causes soreness and inflammation of a joint. It occurs when the cartilage at the affected joint wears down. Cartilage acts as a cushion, covering the ends of bones where they meet to form a joint. Osteoarthritis is the most common form of arthritis. It often occurs in older people. The joints affected most often by this condition include those in the:? Ends of the fingers.? Thumbs.? Neck.? Lower back.? Knees.? Hips.CAUSESOver time, the cartilage that covers the ends of bones begins to wear away. This causes bone to rub on bone, producing pain and stiffness in the affected joints. RISK FACTORSCertain factors can increase your chances of having osteoarthritis, including:? Older age.? Excessive body weight. ? Overuse of joints.? Previous joint injury.SIGNS AND SYMPTOMS? Pain, swelling, and stiffness in the joint.? Over time, the joint may lose its normal shape.? Small deposits of bone (osteophytes) may grow on the edges of the joint.? Bits of bone or cartilage can break off and float inside the joint space. This may cause more pain and damage.DIAGNOSISYour health care provider will do a physical exam and ask about your symptoms. Various tests may be ordered, such as:? X-rays of the affected joint.? An MRI scan.? Blood tests to rule out other types of arthritis.? Joint fluid tests. This involves using a needle to draw fluid from the joint and examining the fluid under a microscope.TREATMENTGoals of treatment are to control pain and improve joint function. Treatment plans may include:? A prescribed exercise program that allows for rest and joint relief.? A weight control plan. ? Pain relief techniques, such as:? Properly applied heat and cold.? Electric pulses delivered to nerve endings under the skin (transcutaneous electrical nerve stimulation [TENS]).? Massage.? Certain nutritional supplements. ? Medicines to control pain, such as:? Acetaminophen.? Nonsteroidal anti-inflammatory drugs (NSAIDs), such as naproxen.? Narcotic or central-acting agents, such as tramadol. ? Corticosteroids. These can be given orally or as an injection.? Surgery to reposition the bones and relieve pain (osteotomy) or to remove loose pieces of bone and cartilage. Joint replacement may be needed in advanced states of osteoarthritis.HOME CARE INSTRUCTIONS? Take medicines only as directed by your health care provider. ? Maintain a healthy weight. Follow your health care provider's instructions for weight control. This may include dietary instructions.? Exercise as directed. Your health care provider can recommend specific types of exercise. These may include:? Strengthening exercises. These are done to strengthen the muscles that support joints affected by arthritis. They can be performed with weights or with exercise bands to add resistance.? Aerobic activities. These are exercises, such as brisk walking or low-impact aerobics, that get your heart pumping. ? Hmtrl-dg-xugcvw activities. These keep your joints limber.? Balance and agility exercises. These help you maintain daily living skills.? Rest your affected joints as directed by your health care provider. ? Keep all follow-up visits as directed by your health care provider.SEEK MEDICAL CARE IF:? Your skin turns red.? You develop a rash in addition to your joint pain.? You have worsening joint pain. ? You have a fever along with joint or muscle aches.SEEK IMMEDIATE MEDICAL CARE IF:? You have a significant loss of weight or appetite. ? You have night sweats. FOR MORE INFORMATION? National Hines of Arthritis and Musculoskeletal and Skin Diseases: www.niams.nih.gov? National Hines on Aging: www.anahi.nih.gov? [employer]: www.rheumatology.org Document Released: 07/16/2006 Document Revised: 11/30/2014 Document Reviewed: 2014ExitCare? Patient Information ?2015 [employer]. This information is not intended to replace advice given to you by your health care provider. Make sure you discuss any questions you have with your health care provider.HyponatremiaHypon atremia is when the salt (sodium) in your blood is low. When salt becomes low, your cells take in extra water and puff up (swell). The puffiness can happen in the whole body. It mostly affects the brain and is very serious. HOME CARE? Only take medicine as told by your doctor.? Follow any diet instructions you were given. This includes limiting how much fluid you drink.? Keep all doctor visits for tests as told. ? Avoid alcohol and drugs.GET HELP RIGHT AWAY IF:? You start to twitch and shake (seize).? You pass out (faint).? You continue to have watery poop (diarrhea) or you throw up (vomit).? You feel sick to your stomach (nauseous).? You are tired (fatigued), have a headache, are confused, or feel weak. ? Your problems that first brought you to the doctor come back.? You have trouble following your diet instructions.MAKE SURE YOU:? Understand these instructions. ? Will watch your condition.? Will get help right away if you are not doing well or get worse.Document Released: 03/27/2012 Document Revised: 10/07/2012 Document Reviewed: 03/27/2012ExitCare? Patient Information ?2015 [employer]. This information is not intended to replace advice given to you by your health care provider. Make sure you discuss any questions you have with your health care provider.Abrahan Pruett D.O.Access [address] [place] [address] [phone] ATIVE TOTAL KNEE ARTHROPLASTY HOME DISCHARGE INSTRUCTIONSINCISION CARE:Follow AQUACEL dressing protocol as instructed. See AQUACEL sheet for details. After AQUACEL dressing removed change dry dressing daily as instructed until dry scabs completely resolved to avoid incision irritation.If the incision is dry, apply a dry dressing only. If any drainage is noted apply Betadine liquid over the drainage only - do not excessively apply Betadine. Dressing changes may be done more often as needed. You may shower, but do not have incision under water until all scabs completely gone. Please notify the office if any increase in redness, tenderness, drainage, fever, or wound separation is noted beyond this point.Compression stockings may be helpful if any significant or uncomfortable swelling in the legs is noted postoperatively. Use and removal instructions should be given by physical therapy. If the swelling is below the knee, knee high compression stockings may suffice. If this does cause swelling into the thigh region, waist high compression stockings may be beneficial as well. These can be obtained from most pharmacies, or can be obtained from the hospital or through Home Health. The mild grade compression stockings are best used initially. You may need assistance when applying or removing the compression stocking. MEDICATIONS:You may resume your home medications at the time of discharge.Pain medication has been prescribed as well. You may continue to use the pain medication every four hours as needed. Any narcotic pain medication can cause side effects including stomach upset, constipation, or light-headedness. You should not drive or operate machinery, or use alcohol while using the narcotic pain medication. You should not use other pain medications with this prescription pain medication unless further directed by your physician.Deep Venous Thrombosis Prophylaxis ? to prevent Blood ClotsA blood thinner that helps prevents the development of blood clots in the legs, was used during your hospitalization. Blood thinner should be continued after discharge X Aspirin Therapy ? patients with no history of blood clots For prevention of deep venous thrombosis and pulmonary embolization, continue to take one 81 mg stomach coated Baby Aspirin twice daily with meals for 30 days postop. Please notify the office if you have any sensitivity to Aspirin products or if any problems develop such as stomach upset, increased bleeding, bruising or ringing in the ears.PHYSICAL THERAPY:Continue the range of motion and strengthening exercises initiated in Physical Therapy in the hospital. Continue weight bearing, as ordered, to the operated knee for four to six weeks as directed in Physical Therapy, or until your strength is improved and Physical Therapy will then allow you to progress to full weight. This will be with the use of a walker or crutches initially. After four or six weeks you may then progress to the use of one crutch, or a cane. A quad-cane is preferred as this is more stable.Physical therapy as begun in the hospital will continue at home, possible with the hotel administrative assistant of Home Health Physical Therapy or in the hospital as an outpatient. When you have become independent with the physical therapy program, this will then be discontinued as a supervised program and you will be instructed to continue the physical therapy exercises at home.PHYSICAL THERAPY CONT.Your exercises are west to successful rehabilitation. You should gain full extension first, hopefully before hospital discharge, then continue to do the exercises to maintain this, and gain 90 degrees flexion by one month post-op. Do the exercises daily, twice if preferred. ALL TOTAL KNEES CLICK- all total knees click as they are composed of cobalt-chromium and titanium. This is a completely normal sound and no cause for alarm. It does not mean something is loose. If you have further concerns, this can be discussed at your post-op visit.DRIVING:Driving is legal, but you must be able to maintain control of your car at all times. Driving too soon, you are considered an impaired driver/refuse collector, and this could be a problem. It is therefore advised not to drive until after your first office visit following surgeryFOLLOW-UP OFFICE VISIT: Alina Pruett D.O.Revised: 2010 Medication Leaflets:acetaminophen and oxycodone (a SEET a MIN oh fen and OX i KOE done)Percocet 10/325, Percocet 2.5/325, Percocet 5/325, Percocet 7.5/325, Primlev, Roxicet, Xartemis XR What is the most important information I should know about acetaminophen and oxycodone?This medicine can slow or stop your breathing, and may be habit-forming. Use only your prescribed dose, and swallow the pill whole to avoid a potentially fatal dose. Never share acetaminophen and oxycodone with another person. MISUSE OF THIS MEDICINE CAN CAUSE ADDICTION, OVERDOSE, OR , especially in a child or other person using the medicine without a prescription.Taking this medicine during may cause life-threatening withdrawal symptoms in the .An overdose of acetaminophen can damage your liver or cause . Call your doctor at once if you have nausea, pain in your upper stomach, itching, loss of appetite, dark urine, maxwell-colored stools, or jaundice (yellowing of your skin or eyes).Stop taking this medicine and call your doctor right away if you have skin redness or a rash that spreads and causes blistering and peeling. Fatal side effects can occur if you use this medicine with alcohol, or with other drugs that cause drowsiness or slow your breathing.What is acetaminophen and oxycodone?Oxycodone is an opioid pain medication, sometimes called a narcotic. Acetaminophen is a less potent pain reliever that increases the effects of oxycodone.Acetaminophen and oxycodone is a combination medicine used to relieve moderate to severe pain.Acetaminophen and oxycodone may also be used for purposes not listed in this medication guide.What should I discuss with my healthcare provider before taking acetaminophen and oxycodone?You should not use this medicine if you are allergic to acetaminophen (Tylenol) or oxycodone, or if you hvae:?? severe asthma or breathing problems; or? a blockage in your stomach or intestines, including paralytic ileus.To make sure this medicine is safe for you, tell your doctor if you have ever had:?? any type of breathing problem or lung disease;? liver disease, cirrhosis, or if you drink alcohol daily;? drug or alcohol addiction, or mental illness; ? kidney disease, urination problems;? problems with your gallbladder, pancreas, thyroid, or adrenal gland; or? a head injury, brain tumor, or seizures.Some medicines can interact with oxycodone and cause a serious condition called serotonin syndrome. Be sure your doctor knows if you also take stimulant medicine, herbal products, or medicine for depression, mental illness, Parkinson's disease, migraine headaches, serious infections, or prevention of nausea and vomiting. Ask your doctor before making any changes in how or when you take your medications. If you use oxycodone while you are , your baby could become dependent on the drug. This can cause life-threatening withdrawal symptoms in the baby after it is born. Babies born dependent on habit-forming medicine may need medical treatment for several weeks. Tell your doctor if you are or plan to become .Do not breast-feed. Acetaminophen and oxycodone can pass into breast milk and may cause drowsiness or breathing problems in a nursing baby. How should I take acetaminophen and oxycodone?Follow all directions on your prescription label. Oxycodone can slow or stop your breathing, especially when you start using this medicine or whenever your dose is changed. Never use this medicine in larger amounts, or for longer than prescribed. An overdose can damage your liver or cause . Tell your doctor if the medicine seems to stop working as well in relieving your pain.Oxycodone may be habit-forming, even at regular doses. Never share this medicine with another person, especially someone with a history of drug abuse or addiction. MISUSE OF NARCOTIC MEDICINE CAN CAUSE ADDICTION, OVERDOSE, OR , especially in a child or other person using the medicine without a prescription. Selling or giving away acetaminophen and oxycodone is against the law. Measure liquid medicine with a special dose-measuring spoon or medicine cup. If you do not have a dose-measuring device, ask your pharmacist for one.Do not crush, break, or open an extended-release pill. Swallow it whole to avoid exposure to a potentially fatal dose. Never crush or break a pill to inhale the powder or mix it into a liquid to inject the drug into your vein. If you need surgery, tell the surgeon ahead of time that you are using this medicine. You may need to stop using the medicine for a short time.Do not stop using this medicine suddenly after long-term use, or you could have unpleasant withdrawal symptoms. Ask your doctor how to safely stop using the medicine.Store at room temperature away from moisture and heat. Keep track of your medicine. Oxycodone is a drug of abuse and you should be aware if anyone is using your medicine improperly or without a prescription.Do not keep leftover opioid medication. Just one dose can cause in someone using this medicine accidentally or improperly. Ask your pharmacist where to locate a drug take-back disposal program. If there is no take-back program, flush the unused medicine down the toilet.What happens if I miss a dose?Since this medicine is used for pain, you are not likely to miss a dose. Skip any missed dose if it is almost time for your next scheduled dose. Do not use extra medicine to make up the missed dose.What happens if I overdose?Seek emergency medical attention or call the Poison Help line at . An overdose can be fatal, especially in a child or other person using this medicine without a prescription. Overdose can cause severe muscle weakness, pinpoint pupils, very slow breathing, extreme drowsiness, or coma.The first signs of an acetaminophen overdose include loss of appetite, nausea, vomiting, stomach pain, sweating, and confusion or weakness. What should I avoid while taking acetaminophen and oxycodone?Do not drink alcohol. Dangerous side effects or could occur.This medicine may impair your thinking or reactions. Avoid driving or operating machinery until you know how this medicine will affect you. Dizziness or severe drowsiness can cause falls or other accidents.Ask a doctor or pharmacist before using any other cold, allergy, pain, or sleep medication. Acetaminophen (sometimes abbreviated as APAP) is contained in many combination medicines. Taking certain products together can cause you to get too much acetaminophen which can lead to a fatal overdose. What are the possible side effects of acetaminophen and oxycodone?Get emergency medical help if you have signs of an allergic reaction: hives; difficulty breathing; swelling of your face, lips, tongue, or throat.In rare cases, acetaminophen may cause a severe skin reaction that can be fatal. This could occur even if you have taken acetaminophen in the past and had no reaction. Stop taking this medicine and call your doctor right away if you have skin redness or a rash that spreads and causes blistering and peeling. Like other narcotic medicines, oxycodone can slow your breathing. may occur if breathing becomes too weak.Call your doctor at once if you have:?? noisy breathing, sighing, shallow breathing;? slow heartbeat or weak pulse;? a light-headed feeling, like you might pass out;? confusion, unusual thoughts or behavior;? weakness, tiredness, fever, unusual bruising or bleeding;? problems with urination; or? liver problems--nausea, upper stomach pain, loss of appetite, dark urine, maxwell-colored stools, jaundice (yellowing of the skin or eyes).Seek medical attention right away if you have symptoms of serotonin syndrome, such as: agitation, hallucinations, fever, sweating, shivering, fast heart rate, muscle stiffness, twitching, loss of coordination, nausea, vomiting, or diarrhea.Serious side effects may be more likely in older adults and those who are overweight, malnourished, or debilitated.Long-term use of opioid medication may affect fertility (ability to have children) in men or women. It is not known whether opioid effects on fertility are permanent. Common side effects include:?? dizziness, drowsiness;? feelings of extreme happiness or sadness;? nausea, vomiting; ? constipation; or? itching.This is not a complete list of side effects and others may occur. Call your doctor for medical advice about side effects. You may report side effects to FDA at 5-117-LZV-6384.What other drugs will affect acetaminophen and oxycodone?Narcotic (opioid) medication can interact with many other drugs and cause dangerous side effects or . Be sure your doctor knows if you also use:?? other narcotic medications--opioid pain medicine or prescription cough medicine;? a sedative like Valium--diazepam, alprazolam, lorazepam, Ativan, Klonopin, Restoril, Tranxene, Versed, Xanax, and others); or? drugs that make you sleepy or slow your breathing--a sleeping pill, muscle relaxer, tranquilizer, antidepressant, or antipsychotic medicine.This list is not complete. Other drugs may interact with acetaminophen and oxycodone, including prescription and ymcc-gtq-lypxzqc medicines, vitamins, and herbal products. Not all possible interactions are listed in this medication guide. Where can I get more information?Your pharmacist can provide more information about acetaminophen and oxycodone.Remember, keep this and all other medicines out of the reach of children, never share your medicines with others, and use this medication only for the indication prescribed.Every effort has been made to ensure that the information provided by [employer]. ('[employer]') is accurate, up-to-date, and complete, but no guarantee is made to that effect. Drug information contained herein may be time sensitive. [employer] information has been compiled for use by healthcare practitioners and consumers in the [place] and therefore [employer] does not warrant that uses outside of the [place] are appropriate, unless specifically indicated otherwise. [employer] drug information does not endorse drugs, diagnose patients or recommend therapy. [employer] drug information is an informational resource designed to assist licensed healthcare practitioners in caring for their patients and/or to serve consumers viewing this service as a supplement to, and not a substitute for, the expertise, skill, knowledge and judgment of healthcare practitioners. The absence of a warning for a given drug or drug combination in no way should be construed to indicate that the drug or drug combination is safe, effective or appropriate for any given patient. [employer] does not assume any responsibility for any aspect of healthcare administered with the aid of information [employer] provides. The information contained herein is not intended to cover all possible uses, directions, precautions, warnings, drug interactions, allergic reactions, or adverse effects. If you have questions about the drugs you are taking, check with your doctor, nurse or pharmacist. Copyright 5419-6794 [employer]. Version: 16.. Revision Date: 07/10/2017. Thank you for choosing [facility] Normal [facility] Auto Diffon 07-13-2018 Basophils Auto #/vol (Bld) 0.3 % Normal 0.0-2.0 [facility] Comment on above: Order Comment: Order Added by Discern Expert. Performed By: #### 1 [id number], 2793830, 3608774, 5756513, [id number], 3805375, [id number] ####[facility] [address] [place] [address] Basophils/Leukocytes Auto Pure number fraction (Bld) 0.0 E9/L Normal 0.0-0.2 [facility] Comment on above: Order Comment: Order Added by Discern Expert. Performed By: #### 1 [id number], 9665379, 9506460, 1717203, [id number], 8767651, 6025288 ####[facility] [address] [place] [address] Eosinophils/100 WBC Auto (Bld) 0.7 % Normal 0.0-8.0 [facility] Comment on above: Order Comment: Order Added by Discern Expert. Performed By: #### 1 [id number], 7501344, 7271428, 2732377, [id number], 3836130, 5730323 ####[facility] [address] [place] [address] Eosinophils/Leukocyte s Auto Pure number fraction (Bld) 0.1 E9/L Normal 0.0-0.5 [facility] Comment on above: Order Comment: Order Added by Discern Expert. Performed By: #### 1 [id number], 4914114, 2243316, 6793529, [id number], 0038627, 9143724 ####[facility] [address] [place] [address] Lymphocytes/100 WBC Auto (Bld) 14.2 % Normal 14.0-50.0 [facility] Comment on above: Order Comment: Order Added by Tony Expert. Performed By: #### 1 [id number], 7177636, 1471601, 6432066, [id number], 1598552, 3999587 ####[place] [address] [place] [address] Lymphocytes/Leukocyte s Auto Pure number fraction (Bld) 1.4 E9/L Normal 1.0-4.0 [facility] Comment on above: Order Comment: Order Added by Discern Expert. Performed By: #### 1 [id number], 7067057, 0679473, 8503757, 578494916, 7479859, 8366686 ####[place] [place] [address] Monocytes/100 WBC Auto (Bld) 12.3 % Normal 4.0-14.0 [facility] Comment on above: Order Comment: Order Added by Discern Expert. Performed By: #### 1 [id number], 7364704, 9576409, 6846554, 360183791, 6522482, 7469919 ####[facility] [address] [place] [address] Monocytes/Leukocytes Auto Pure number fraction (Bld) 1.2 E9/L High 0.2-1.0 [facility] Comment on above: Order Comment: Order Added by Tony Expert. Performed By: #### 1 [id number], 2160619, 0078280, 1718893, [id number], 8803647, 4912632 ####[facility] [address] [place] [address] Neutrophils/100 WBC Auto (Bld) 72.5 % Normal 36.0-75.0 [facility] Comment on above: Order Comment: Order Added by Discern Expert. Performed By: #### 1 [id number], 0748850, 3625240, 0604636, [id number], 4324027, 9394830 ####[facility] [address] [place] [address] Neutrophils/Leukocyte s Auto Pure number fraction (Bld) 7.3 E9/L Normal 2.0-7.5 [facility] Comment on above: Order Comment: Order Added by Discern Expert. Performed By: #### 1 [id number], 4659955, 8898040, 4793685, [id number], 5005981, 5314026 ####[facility] [address] [place] [address] BUNon 07-13-2018 Urea nitrogen mass conc 14 mg/dL Normal 5-21 [facility] Comment on above: Performed By: #### 1 3526697, 6901939, 1377614, 8163121, [id number], 2552763, 2645155 ####[facility] [address] [place] [address] CBC w/ Auto Diffon 8 Erythrocyte distribution width Auto Ratio (RBC) 14.2 % Normal 10.9-14.2 [facility] Comment on above: Performed By: #### 1 8014828, 5019424, 1247674, 5215835, 848366803, 1726269, 0286270 ####[facility] [address] [place] [address] Hematocrit Auto Volume Fraction (Bld) 33.8 % Low 34.0-46.0 [facility] Comment on above: Performed By: #### 1 6622049, 3668342, 9123074, 2108404, [id number], 7407103, 8409654 ####[facility] [address] [place] [address] Hemoglobin mass conc (Bld) 11.5 g/dL Low 12.0-16.0 [facility] Comment on above: Performed By: #### 1 4129909, 1867509, 7540743, 8469619, 383761175, 2071129, 0025821 ####[facility] [address] [place] [id number] MCH Auto Entitic mass (RBC) 28.4 pg Normal 27.0-34.0 [facility] Comment on above: Performed By: #### 1 0279830, 8557735, 6063390, 5346689, 435607153, 8190698, 2295809 ####[facility] [address] [place] [address] MCHC Auto mass conc (RBC) 34.0 g/dL Normal 31.4-39.3 [facility] Comment on above: Performed By: #### 1 6441425, 4777376, 2228596, 9814428, 867298954, 3080822, 3305441 ####[place] [id number] MCV Auto Entitic volume (RBC) 83.3 fL Normal 80.0-100.0 [facility] Comment on above: Performed By: #### 1 9702048, 1676920, 2336051, 0908868, 033962952, 2973603, 4779077 ####[place] [id number] Platelet mean volume Auto Entitic volume (Bld) 8.6 fL Normal 6.4-10.8 [facility] Comment on above: Performed By: #### 1 7528816, 0098426, 3238632, 3828507, [id number], 9873042, 6792412 ####[place] [address] [place] [id number] Platelets Auto #/vol (Bld) 260.0 E9/L Normal 150.0-500. 0 [facility] Comment on above: Performed By: #### 1 [id number], [id number], [id number], [id number], [id number], [id number] ####[facility] [address] [place] [address] RBC Auto #/vol (Bld) 4.0 E12/L Low 4.3-5.9 [facility] Comment on above: Performed By: #### 1 [id number], 0779617, [id number], [id number], [id number], [id number] ####[facility] [address] [place] [address] WBC corrected for nucl RBC Auto #/vol (Bld) 10.1 E9/L Normal 4.0-11.0 [facility] Comment on above: Performed By: #### 1 [id number], [id number], 9147113, [id number], [id number], [id number], [id number] ####[facility] [address] [place] [address] Creatinineon 07-13-2018 Creatinine mass conc 0.8 mg/dL Normal 0.5-1.3 [facility] Comment on above: Performed By: #### 1 [id number], [id number], 6718924, [id number], [id number], [id number], [id number] ####[facility] [address] [place] [address] Interdisciplinary Note - Hubert e Manageron 07-13-2018 Interdisciplinary Note - Intake Clerk Pt is awake and alert in involved in plan of care. PCP verified, and insurance information verified. DME discussed.Contact information provided and white board updated. Family present at this time, Pt previously rounded with Trupti RAM and DR. Pruett. pt is aware of anticiapted DC home today. Pt is set up with [facility] for DC. Dneies any further DC needs or concerns. Normal [facility] Interdisciplinary Note - Leann n 07-13-2018 Interdisciplinary Note - OT OT eval completed this date. Reviewed TKA precautions, adaptive equip, walker safety and tranporting items with walker. Pt with good understanding despite 10/10 pain. Completed LE dressing with adaptive equipment. Plans to purchase hip kit for home. Issued walker bag to transport items. Recommended tub transfer bench. Pt will consider purchasing one if needed. Tub is up 12 steps and pt feels she will need to sponge bathe for a while until she is able to access that bathroom. No futher OT is planned, pt is participating in [id number] program and will have PT at home per program. Normal [facility] Lyteson 07-13-2018 Anion gap 3 molar conc 11 mmol/L Normal 6-16 [facility] Comment on above: Performed By: #### 1 [id number], 9452795, 2284144, 5257913, [id number], 6250240, [id number] ####[facility] [address] [place] [address] Chloride molar conc 95 mmol/L Low 101-111 [facility] Comment on above: Performed By: #### 1 [id number], 4478495, 9938348, 6831862, [id number], 8481178, [id number] ####[facility] [address] [place] [address] CO2 molar conc 29 mmol/L Normal 21-31 [facility] Comment on above: Performed By: #### 1 [id number], 0984589, 4539239, 4292952, [id number], 8555849, [id number] ####[facility] [address] [place] [address] Potassium molar conc 4.0 mmol/L Normal 3.5-5.3 [facility] Comment on above: Performed By: #### 1 [id number], 8321461, 4113289, 5840401, [id number], 4608778, 9053604 ####[facility] [address] [place] [address] Sodium molar conc 131 mmol/L Low 135-145 [facility] Comment on above: Performed By: #### 1 [id number], [id number], 5227649, 2263056, [id number], 7136228, 6776490 ####[facility] [address] [place] [address] Operative Reporton 07-13-201 8 Operative Report Date of Surgery: 07/12/2018SURGEON: Abrahan B. Shine, D.O.PREOPERATIVE DIAGNOSES:1. Severe degenerative joint disease, right knee2. Increased BMI over 40POSTOPERATIVE DIAGNOSES:1. Severe degenerative joint disease, right knee2. Increased BMI over 40OPERATION: Right total knee replacement arthroplastyANESTHESIA: General with blockINDICATIONS FOR SURGERY: This is a 58-year-old female with advanceddegenerative changes in the right knee which have failed to improve andrespond with outpatient conservative management. She has had conservativecare including activity restriction, bracing, anti-inflammatorymedicatio ns, multiple injections and joint fluid therapy. X-raysdemonstrate [id number] medial joint space loss. Please refer to theadmitting History and Physical for further details.COMPONENTS: Jimbo Triathlon size 5 femur, size 5 tibia, size 9polyethylene insert - patellar sparing.DEGREE OF DIFFICULTY: Because of the patient's increased size with anincreased BMI over 40, this did take additional time for the preparationand positioning of the patient and to perform the procedureintraoperatively. This did require additional assistance, did requireadditional time to perform the procedure very satisfactorily andsuccessfully with satisfactory postoperative x-rays.PROCEDURE: The patient was evaluated in the Preoperative Holding Area.Site and side verification were performed and the knee was marked.Procedure is again reviewed and all questions were answered and the patientwas taken to the Operating Room and placed supine on the operating roomtable. Anesthesia was performed per Anesthesia Department. Time-outprocedure is performed and the properly identified and marked leg was thensterilely prepped and draped in the usual routine fashion. This isapproached with an anterior incision, and medial mid vastus approach. Thiswas carried down through the subcutaneous tissue and a capsulotomy wasperformed from the superior medial aspect of the patella. Patellareversion showed marginal osteophytes. No significant erosive changescentrally. Marginal patellar osteophytes were resected. The knee was thenfully flexed, marginal femoral and tibial osteophytes were resected bothmedially and laterally and the medial and lateral meniscal remnants werethen removed. The femoral medullary canal was entered and irrigatedcopiously. The femoral medullary guide was then inserted. The distalfemoral cut was performed with x-ray review. The tibia was then subluxatedforward with a Rodo retractor. The tibial medullary canal wassimilarly entered and copiously irrigated and the tibial medullary guidewas inserted. Measurement of the medial and lateral tibial plateau isreferenced from the medullary cutting guide and preoperative x-ray andresection of the proximal tibia was performed after careful placement ofmedial and lateral retractors. The trial components were inserted as aboveafter the femoral box cut is performed per routine. Ligament balance isperformed at this time which demonstrates stable motion with trialreduction through 0/125 degrees. Tibial rotation is selected and markedand the trial components were removed. The tibial tray is then pinned asmarked and the tibial keel is punched. The final copious pulse lavageirrigation is performed of the femoral and tibial cut bone surfaces andthese are both dried with packed sponges. Glove change and suction tipchange is performed. The dried surfaces are then cemented, tibial sidefirst, with manual impaction of the cement. The tibial component isimpacted and excess cement is removed. The cemented femoral component islikewise then impacted and after excess cement removal, the trialpolyethylene liner is inserted. The knee is taken into 30 degreesextension with a posterior force applied to allow the cement to fully cureand harden. The tibial component is then removed and after finalirrigation, electrocautery hemostasis is obtained. The tibial polyethyleneliner is then inserted, snapped in place, and the final range of motionshows excellent patellofemoral tracking, full motion and symmetricstability medially and laterally. Exparel 260 mg is then injected with 1vial diluted with 1 vial of Marcaine 0.5% and additional Saline is used tomake 100 cc volume. The deep capsule is injected anterior, posterior,medially and laterally. Small injections with 1-2 cc volumes are performedevenly spaced. The capsule and vastus fascia is then repaired with #2V-Loc for deep closure. The superficial fascia is injected after fascialclosure again with 1-2 cc injections evenly spaced. The medial and lateralskin incision is similarly injected evenly spaced. Subcutaneous closure isperformed with #2-0 V-Loc. The skin is then closed with #3-0 V-Loc suture.A sterile bulky compressive dressing is then applied and the tourniquet isdeflated. With deflation of the tourniquet after application of thedressing, good pulses are noted and the patient is transported to Recoveryin satisfactory condition having tolerated the anesthetic and the procedurewell. The postoperative x-rays are satisfactory.Abrahan Pruett D.O.glsDictated: 07/12/2018 #[id number]: 07/13/2018 #[id number]: Abrahan Pruett D.O. [facility] Comment on above: Result Comment: Elec tronically Signed By: Abrahan Pruett DO\.br\Date and Time Signed: 07/13/18 12:31 EST Progress Note-Physicianon Protein mass conc Assessment/Plan 1. K nee osteoarthritis Status post right total knee arthroplasty POD # 1 secondary to osteoarthritis performed and managed by Dr. Abrahan Pruett -Continue ferrous sulfate -PT/OT -Daily CBC/BMP -Pain management -per surgical services -Education: Oral pain medication regimen, incentive spirometry 10 times while awake and bowel regimen to avoid constipation -Thank you for the opportunity to assist in the management of your patient 2. Anemia Stable -No acute bleeding noted, patient is hemodynamically stable at current value -Trend CBC 3. Hyponatremia Asymptomatic -D/C IV fluids, patient is taking PO well -Trend BMP 4. Asthma, Asthma Stable -Continue med nebs, budesonide, 5. Diabetes mellitus type 2, insulin dependent, Diabetes mellitus, insulin dependent (IDDM), controlled insulin dependent (IDDM), controlled -Accuchecks AC/HS w/ SSI prn -Continue levemir, januvia -Hold metformin while inpatient 6. Obesity BMI - pending nursing measurements 7. Depression Stable -Continue buspirone, fluoxetine 8. No contraindication to deep vein thrombosis (DVT) prophylaxis DVTp -Deferred to surgical services - arixtra -SCDs, early ambulation S/P knee surgery Orders: albuterol, 2.5 mg = 3 mL, Soln-Inh, NEB, q2hr PRN Shortness of breath or wheezing, Routine, Start date 07/12/18 12:32:00 EST budesonide, 0.5 mg = 2 mL, Susp-Inh, NEB, BID, Routine, Start date 07/12/18 21:00:00 EST busPIRone, 60 mg = 6 tab(s), Tab, Oral, Daily, Routine, Start date 07/13/18 9:00:00 EST docusate, 100 mg = 1 cap(s), Cap, Oral, BID, Routine, Start date 07/12/18 21:00:00 EST fluoxetine, 60 mg = 3 cap(s), Cap, Oral, Daily, Routine, Start date 07/13/18 9:00:00 EST glucose, 40 mL, Soln-IV, IV Push, Once PRN Blood glucose, Routine, Start date 07/12/18 11:27:00 EST insulin detemir, 15 unit(s) = 0.15 mL, Injection-Insulin, SubCutaneous, Daily, Routine, Start date 07/13/18 9:00:00 EST insulin lispro, 0-10 Units, Injection-Insulin, SubCutaneous, QIDACHS, Routine, Start date 07/12/18 11:30:00 EST sitagliptin, 100 mg = 1 tab(s), Tab, Oral, Daily, Routine, Start date 07/13/18 9:00:00 EST Aerosol Treatment Flutter Valve Hypoglycemia Protocol Responsive Patient Hypoglycemia Protocol Unresponsive Patient Routine Capillary Glucose POC This report was transcribed using voice recognition software. Every effort was made to ensure accuracy, however, inadvertently computerized dextrine mixer mistakes may be present.Subjective Patient states that she is feeling better today,her pain is moderately controlled, she is eating and drinking as normal, no abdominal complaints. Patient denies chest pain/pressure, or palpitations, shortness of breath, nausea/vomiting or paresthesias. Review of Systems Constitutional: Negative Eye: Negative. Ear/Nose/Mouth/Throat: Negative. Respiratory: Negative Cardiovascular: Negative. Gastrointestinal: Passing flatus. Last bowel movement: day ago Genitourinary: Negative. Hematology/Lymphatics: Negative. Endocrine: Negative. Immunologic: Negative Musculoskeletal: Right knee pain Integumentary: Negative. Neurologic: Alert and oriented X4. Psychiatric: Negative. Additional ROS info: Except as noted in the above Review of Systems and in the History of Present Illness all other systems have been reviewed and are negative or noncontributoryObjective Vitals & Measurements T: 36.9 ?C (Oral) TMIN: 36.5 ?C (Oral) TMAX: 37.5 ?C (Oral) HR: 93(Monitored) RR: 16 BP: 156/87 SpO2: 93% Intake & Output This visit (24 hour periods starting at 07:00 EST) 07/13/18 * 07/12/18 07/11/18 Total Summary Intake mL -- 4,028.565 -- Output mL -- 1,125 -- Fluid Balance -- 2,903.565 -- Intake (10) Lactated Ringers Injection mL -- 1,700 -- Lactated Ringers Injection 1,000 mL mL -- 1,507 -- Oral Intake mL -- 600 -- bupivacaine mL -- 1.5 -- clindamycin mL -- 100 -- hydromorphone mL -- 2.5 -- lidocaine mL -- 3 -- midazolam mL -- 2 -- ondansetron mL -- 4 -- propofol mL -- 108.565 -- Total -- 4,028.565 -- Output (3) EBL Surgery mL -- 10 -- Urine Catheter mL -- 915 -- Urine Count mL -- 200 -- Total -- 1,125 -- Counts (3) Stool Count -- -- -- Urine Count -- 3 -- Urine Count mL -- 200 -- * This column has not completed the indicated time period. Physical Exam General: Alert and oriented, No acute distress. Ambulation status: Not observed Appearance: Obese Behavior: Appropriate, Cooperative. Hydration: Hydrated Skin: Normal for ethnicity. Eye: Pupils are equal, round and reactive to light. Sclera: Negative HENT: Normocephalic, Normal hearing, No pharyngeal erythema. Mouth: Tongue (moist), Oral mucosa ( moist), Neck: Supple, Non-tender, No lymphadenopathy. Respiratory: Lungs are clear to auscultation, Respirations are non-labored, Breath sounds are equal, Symmetrical chest wall expansion. Cardiovascular: Normal rate, Regular rhythm, Good pulses equal in all extremities, Normal peripheral perfusion, No edema. Gastrointestinal: Soft, Non-tender, Non-distended, Normal bowel sounds. Musculoskeletal right knee pain, limited range of motion secondary to surgical intervention Integumentary: Warm, Dry, not intact. Integumentary exam: Right knee Yves wrap and ice pack intact, surgical line not visualized as this is managed per orthopedic services Neurologic: Alert, Oriented, No focal deficits. Psychiatric: Cooperative, Appropriate mood & affect, Normal judgment. Lab Results WBC: 10.1 E9/L (07/13/18 05:29:00 EST) RBC: 4 E12/L Low (07/13/18 05:29:00 EST) Hgb: 11.5 gm/dL Low (07/13/18 05:29:00 EST) Hct: 33.8 % Low (07/13/18 05:29:00 EST) MCV: 83.3 fL (07/13/18 05:29:00 EST) MCH: 28.4 pg (07/13/18 05:29:00 EST) MCHC: 34 gm/dL (07/13/18 05:29:00 EST) RDW: 14.2 % (07/13/18 05:29:00 EST) Platelet: 260 E9/L (07/13/18 05:29:00 EST) MPV: 8.6 fL (07/13/18 05:29:00 EST) Neutro Auto: 72.5 % (07/13/18 05:29:00 EST) Lymph Auto: 14.2 % (07/13/18 05:29:00 EST) Towner Auto: 12.3 % (07/13/18 05:29:00 EST) Eos Auto: 0.7 % (07/13/18 05:29:00 EST) Basophil Auto: 0.3 % (07/13/18 05:29:00 EST) Neutro Absolute: 7.3 E9/L (07/13/18 05:29:00 EST) Lymph Absolute: 1.4 E9/L (07/13/18 05:29:00 EST) Towner Absolute: 1.2 E9/L High (07/13/18 05:29:00 EST) Eos Absolute: 0.1 E9/L (07/13/18 05:29:00 EST) Basophil Absolute: 0 E9/L (07/13/18 05:29:00 EST) BUN: 14 mg/dL (07/13/18 05:29:00 EST) Creatinine: 0.8 mg/dL (07/13/18 05:29:00 EST) eGFR: >60 (07/13/18 05:29:00 EST) eGFR AA: >60 (07/13/18 05:29:00 EST) Sodium Lvl: 131 mmol/L Low (07/13/18 05:29:00 EST) Potassium Lvl: 4 mmol/L (07/13/18 05:29:00 EST) Chloride: 95 mmol/L Low (07/13/18 05:29:00 EST) CO2: 29 mmol/L (07/13/18 05:29:00 EST) AGAP: 11 mEq/L (07/13/18 05:29:00 EST) Glucose Cap: 163 mg/dL High (07/13/18 08:03:00 EST) POC Device SN: [id number] (07/13/18 08:03:00 EST) POC Username: GALDINO SONI (07/13/18 08:03:00 EST) Diagnostic Results No qualifying data available.Attestation Case reviewed and discussed with Dr. Leo who is in agreement with current treatment planProblem List/Past Medical History Ongoing Asthma Historical No qualifying dataMedications Inpatient albuterol 0.083% Inh Zoey 3 mL UD, 2.5 mg= 3 mL, NEB, q2hr, PRN Arixtra 2.5 mg/0.5 mL Injection, 2.5 mg= 0.5 mL, SubCutaneous, qAM budesonide 0.5 mg/2 mL Inh Susp, 0.5 mg= 2 mL, NEB, BID busPIRone 10 mg Tab, 60 mg= 6 tab(s), Oral, Daily Colace 100 mg Cap, 100 mg= 1 cap(s), Oral, BID, PRN Colace 100 mg Cap, 100 mg= 1 cap(s), Oral, BID Dextrose 50% Soln-IV, 40 mL, IV Push, Once, PRN Dilaudid 2 mg Injection, 1 mg= 0.5 mL, IV Push, q2hr, PRN Dulcolax 5 mg Tab-EC, 10 mg= 2 tab(s), Oral, Daily, PRN ferrous sulfate 325 mg Tab, 325 mg= 1 tab(s), Oral, BID Fleet Enema, 135 mL, Rectal, Once, PRN FLUoxetine 20 mg Cap, 60 mg= 3 cap(s), Oral, Daily HumaLOG Sliding Scale, 0-10 Units, SubCutaneous, QIDACHS Januvia 100 mg Tab, 100 mg= 1 tab(s), Oral, Daily Levemir 100 units/mL Injection-Insulin, 15 unit(s)= 0.15 mL, SubCutaneous, Daily Milk of Magnesia 8% Susp-Oral, 30 mL, Oral, BID, PRN Rockwood 5/325 Tab, 2 tab(s), Oral, q4hr, PRN Rockwood 5/325 Tab, 1 tab(s), Oral, q4hr, PRN Pantoprazole [address] Tab, 40 mg= 1 tab(s), Oral, Daily Percocet 325 mg-5 mg Tab, 1 tab(s), Oral, q4hr, PRN Percocet 325 mg-5 mg Tab, 2 tab(s), Oral, q4hr, PRN Tylenol 325 mg Tab, 650 mg= 2 tab(s), Oral, q4hr, PRN Vitamin C 500 mg Tab, 500 mg= 1 tab(s), Oral, BID Zofran 4 mg/2 mL Injection, 4 mg= 2 mL, IV Push, q6hr, PRN Home busPIRone 30 mg oral tablet, 60 mg= 2 tab(s), Oral, Daily Flovent Diskus 250 mcg inhalation powder, 250 microgram, Inhalation, BID FLUoxetine 60 mg oral tablet, 60 mg= 1 tab(s), Oral, Daily Januvia 100 mg Tab, 100 mg= 1 tab(s), Oral, Daily Lantus Solostar Pen 100 units/mL subcutaneous solution, 15 unit(s), SubCutaneous, Daily metformin 1000 mg Tab, 1000 mg= 1 tab(s), Oral, BID Percocet 325 mg-5 mg Tab, 1 tab(s), Oral, q4hr, PRN Pro-Air HFA CFC free 90 mcg/inh MDI, 2 puff(s), Inhalation, QID, PRN Normal [facility] Comment on above: Result Comment: Elec tronically Signed By: Trupti SCHMIDT\.br\Date and Time Signed: 07/13/18 10:54 EST\.br\Electronically Co-Signed By: Suzy LEO MD\.br\Date and Time Co-Signed: 07/13/18 11:23 EST eGFRon 07-13-2018 GFR/1.73 sq M predicted among blacks MDRD vol rate/area (S/P/Bld) mL/min/{1.73_m2} Normal >=59 [facility] Comment on above: Order Comment: Order added by Discern Expert. Result Comment: eGFR is race adjusted. AA=. Performed By: #### 1 [id number], [id number], 6376614, 9646522, [id number], [id number], [id number] ####[facility] [address] [place] [address] GFR/1.73 sq M predicted among non-blacks MDRD vol rate/area (S/P/Bld) mL/min/{1.73_m2} Normal >=59 [facility] Comment on above: Order Comment: Order added by Discern Expert. Result Comment: Public Safety Officer elin kidney disease could be indicated at eGFR's of less than 60 mL/min/1.73m2. Kidney failure is indicated at less than 15 mL/min/1.73m2. Performed By: #### 1 [id number], [id number], 2246555, [id number], [id number], [id number], [id number] ####[facility] [address] [place] [address] ABO/Rhon 07-12-2018 ABO/Rh Positive Invalid Interpretation Code [facility] Comment on above: Performed By: #### 1 [id number], [id number], [id number], [id number] ####[facility] [address] [place] [address] ABO/Rh History Checkon 07-12 ABO/Rh History Check Verified Hx Blood Type Normal [facility] Comment on above: Performed By: #### 1 [id number], [id number], [id number], [id number] ####[facility] [address] [place] [address] ABSCon 07-12-2018 ABSC Gel Interp Negative Normal [facility] Comment on above: Performed By: #### 1 [id number], [id number], [id number], [id number] ####[facility] [address] [place] [address] Blood Bank ID#on 07-12-2018 BBID# [id number] Invalid Interpretation Code [facility] Comment on above: Performed By: #### 1 [id number], [id number], [id number], [id number] ####[facility] [address] [place] [address] Consultation Noteon 07-12-20 Consultation Note Chief Complaint Righ t knee painReason for Consultation Medical managementHistory of Present Illness 58-year-old female with PMH of asthma, depression, IDDM type II and obesity. Patient presented in situ the care of Dr. Abrahan Pruett and underwent a right total knee arthroplasty on 07/12/18.Review of Systems Constitutional: malaise, fatigue Eye: Negative. Ear/Nose/Mouth/Throat: Negative. Respiratory: Negative Cardiovascular: Negative. Gastrointestinal: Passing flatus. Last bowel movement: 1 day ago Genitourinary: Negative. Hematology/Lymphatics: Negative. Endocrine: Negative. Immunologic: Negative Musculoskeletal: Right knee pain Integumentary: Negative. Neurologic: Alert and oriented X4. Psychiatric: Negative. Additional ROS info: Except as noted in the above Review of Systems and in the History of Present Illness all other systems have been reviewed and are negative or noncontributoryPhysical Exam Vitals & Measurements T: 36.5 ?C (Oral) TMIN: 36.0 ?C (Temporal Artery) TMAX: 36.5 ?C (Oral) HR: 66(Monitored) RR: 16 BP: 129/73 SpO2: 98% General: Alert and oriented, No acute distress. Ambulation status: Not observed Appearance: Obese Behavior: Appropriate, Cooperative. Hydration: Mild dehydration Skin: Normal for ethnicity. Eye: Pupils are equal, round and reactive to light. Sclera: Negative HENT: Normocephalic, Normal hearing, No pharyngeal erythema. Mouth: Tongue (furrowed), Oral mucosa ( moist), Neck: Supple, Non-tender, No lymphadenopathy. Respiratory: Lungs are clear to auscultation, Respirations are non-labored, Breath sounds are equal, Symmetrical chest wall expansion. Cardiovascular: Normal rate, Regular rhythm, Good pulses equal in all extremities, Normal peripheral perfusion, No edema. Gastrointestinal: Soft, Non-tender, Non-distended, Normal bowel sounds. Musculoskeletal right knee pain, limited range of motion secondary to surgical intervention Integumentary: Warm, Dry, not intact. Integumentary exam: Right knee Yves wrap and ice pack intact, surgical line not visualized as this is managed per orthopedic services Neurologic: Alert, Oriented, No focal deficits. Psychiatric: Cooperative, Appropriate mood & affect, Normal judgment. Assessment/Plan 1. Knee osteoarthritis Status post right total knee arthroplasty POD # 0 secondary to osteoarthritis performed and managed by Dr. Abrahan Pruett -Continue ferrous sulfate -PT/OT -Daily CBC/BMP -Pain management -per surgical services -Education: Oral pain medication regimen, incentive spirometry 10 times while awake and bowel regimen to avoid constipation -Thank you for the opportunity to assist in the management of your patient 2. Asthma, Asthma Stable -Continue med nebs, budesonide, 3. Diabetes mellitus type 2, insulin dependent, Diabetes mellitus, insulin dependent (IDDM), controlled -Accuchecks AC/HS w/ SSI prn -Continue levemir, januvia -Hold metformin while inpatient 4. Obesity BMI - pending nursing measurements 5. Depression Stable -Continue buspirone, fluoxetine 6. No contraindication to deep vein thrombosis (DVT) prophylaxis DVTp -Deferred to surgical services - arixtra -SCDs, early ambulation S/P knee surgery Orders: albuterol, 2.5 mg = 3 mL, Soln-Inh, NEB, q2hr PRN Shortness of breath or wheezing, Routine, Start date 07/12/18 12:32:00 EST budesonide, 0.5 mg = 2 mL, Susp-Inh, NEB, BID, Routine, Start date 07/12/18 21:00:00 EST busPIRone, 60 mg = 6 tab(s), Tab, Oral, Daily, Routine, Start date 07/13/18 9:00:00 EST docusate, 100 mg = 1 cap(s), Cap, Oral, BID, Routine, Start date 07/12/18 21:00:00 EST fluoxetine, 60 mg = 3 cap(s), Cap, Oral, Daily, Routine, Start date 07/13/18 9:00:00 EST glucose, 40 mL, Soln-IV, IV Push, Once PRN Blood glucose, Routine, Start date 07/12/18 11:27:00 EST insulin detemir, 15 unit(s) = 0.15 mL, Injection-Insulin, SubCutaneous, Daily, Routine, Start date 07/13/18 9:00:00 EST insulin lispro, 0-10 Units, Injection-Insulin, SubCutaneous, QIDACHS, Routine, Start date 07/12/18 11:30:00 EST sitagliptin, 100 mg = 1 tab(s), Tab, Oral, Daily, Routine, Start date 07/13/18 9:00:00 EST Aerosol Treatment Flutter Valve Hypoglycemia Protocol Responsive Patient Hypoglycemia Protocol Unresponsive Patient Routine Capillary Glucose POC Disposition: To be determined by orthopedic services This report was transcribed using voice recognition software. Every effort was made to ensure accuracy, however, inadvertently computerized dextrine mixer mistakes may be present.Attestation Case reviewed and discussed with Dr. Leo who is in agreement with current treatment planProblem List/Past Medical History Ongoing No qualifying data Historical No qualifying dataProcedure/Surgical History achilles tendon lengthening, left, Endometrial ablation.Medications Inpatient acetaminophen 500 mg Tab, 1000 mg= 2 tab(s), Oral, q8hr albuterol 0.083% Inh Zoey 3 mL UD, 2.5 mg= 3 mL, NEB, q2hr, PRN Arixtra 2.5 mg/0.5 mL Injection, 2.5 mg= 0.5 mL, SubCutaneous, qAM budesonide 0.5 mg/2 mL Inh Susp, 0.5 mg= 2 mL, NEB, BID busPIRone 10 mg Tab, 60 mg= 6 tab(s), Oral, Daily Cleocin 900 mg-5%/50 mL Soln-IV, 900 mg= 50 mL, IV Piggyback, q8hr Colace 100 mg Cap, 100 mg= 1 cap(s), Oral, BID, PRN Colace 100 mg Cap, 100 mg= 1 cap(s), Oral, BID Dextrose 50% Soln-IV, 40 mL, IV Push, Once, PRN Dilaudid 2 mg Injection, 1 mg= 0.5 mL, IV Push, q2hr, PRN Dulcolax 5 mg Tab-EC, 10 mg= 2 tab(s), Oral, Daily, PRN ferrous sulfate 325 mg Tab, 325 mg= 1 tab(s), Oral, BID Fleet Enema, 135 mL, Rectal, Once, PRN FLUoxetine 20 mg Cap, 60 mg= 3 cap(s), Oral, Daily HumaLOG Sliding Scale, 0-10 Units, SubCutaneous, QIDACHS Januvia 100 mg Tab, 100 mg= 1 tab(s), Oral, Daily Lactated Ringers IV Zoey 1000 mL 1,000 mL, 1000 mL, IV Lactated Ringers IV Zoey 1000 mL 1,000 mL, 1000 mL, IV Levemir 100 units/mL Injection-Insulin, 15 unit(s)= 0.15 mL, SubCutaneous, Daily Milk of Magnesia 8% Susp-Oral, 30 mL, Oral, BID, PRN [place] 5/325 Tab, 2 tab(s), Oral, q4hr, PRN [place] 5/325 Tab, 1 tab(s), Oral, q4hr, PRN oxyCODONE 5 mg Tab, 5 mg= 1 tab(s), Oral, q4hr, PRN oxyCODONE 5 mg Tab, 10 mg= 2 tab(s), Oral, q4hr, PRN Pantoprazole [address] Tab, 40 mg= 1 tab(s), Oral, Daily Percocet 325 mg-5 mg Tab, 1 tab(s), Oral, q4hr, PRN Percocet 325 mg-5 mg Tab, 2 tab(s), Oral, q4hr, PRN Tylenol 325 mg Tab, 650 mg= 2 tab(s), Oral, q4hr, PRN Ultram 50 mg Tab, 100 mg= 2 tab(s), Oral, q6hr, PRN Ultram 50 mg Tab, 50 mg= 1 tab(s), Oral, q6hr, PRN Vitamin C 500 mg Tab, 500 mg= 1 tab(s), Oral, BID Zofran 4 mg/2 mL Injection, 4 mg= 2 mL, IV Push, q6hr, PRN Home busPIRone 30 mg oral tablet, 60 mg= 2 tab(s), Oral, Daily Flovent Diskus 250 mcg inhalation powder, 250 microgram, Inhalation, BID FLUoxetine 60 mg oral tablet, 60 mg= 1 tab(s), Oral, Daily Januvia 100 mg Tab, 100 mg= 1 tab(s), Oral, Daily Lantus Solostar Pen 100 units/mL subcutaneous solution, 15 unit(s), SubCutaneous, Daily metformin 1000 mg Tab, 1000 mg= 1 tab(s), Oral, BID Percocet 325 mg-5 mg Tab, 1 tab(s), Oral, q4hr, PRN Pro-Air HFA CFC free 90 mcg/inh MDI, 2 puff(s), Inhalation, QID, PRNAllergies penicillin (Rash) sulfamethoxazole (Rash)Social History Alcohol - Low Risk, 07/01/2018 Substance Abuse - Denies Substance Abuse, 07/01/2018 Tobacco - Denies Tobacco Use, 07/01/2018Family History Diabetes mellitus type 2: Father. Hypothyroidism: Sister. Primary malignant neoplasm of female genital organ: Mother. Primary malignant neoplasm of lung: Mother.Lab Results Size: 5 9MM THKNS (07/12/18 09:20:02 EST) Size: #5 (07/12/18 09:20:02 EST) Size: #5 RT PS (07/12/18 09:20:02 EST) Glucose Cap: 110 mg/dL High (07/12/18 11:53:00 EST) POC Device SN: [id number] (07/12/18 11:53:00 EST) POC Username: POC Username (07/12/18 11:53:00 EST) UA Spec Desc: Salguero (07/12/18 08:02:00 EST) UA Color: Yellow2 (07/12/18 08:02:00 EST) UA Clarity: Clear2 (07/12/18 08:02:00 EST) UA Spec Grav: >=1.030 (07/12/18 08:02:00 EST) UA pH: 5.5 (07/12/18 08:02:00 EST) UA Protein: NEGATIVE1 (07/12/18 08:02:00 EST) UA Glucose: NEGATIVE1 (07/12/18 08:02:00 EST) UA Ketones: NEGATIVE1 (07/12/18 08:02:00 EST) UA Bili: NEGATIVE1 (07/12/18 08:02:00 EST) UA Blood: NEGATIVE1 (07/12/18 08:02:00 EST) UA Nitrite: NEGATIVE1 (07/12/18 08:02:00 EST) UA Urobilinogen: 0.2 (07/12/18 08:02:00 EST) UA Leuk Est: NEGATIVE1 (07/12/18 08:02:00 EST) UA RBC: 0-3 (07/12/18 08:02:00 EST) UA Squam Epithelial: 0-2 (07/12/18 08:02:00 EST) UA WBC: 0-5 (07/12/18 08:02:00 EST) UA Mucous: Trace2 (07/12/18 08:02:00 EST) ABO/Rh: A POS (07/12/18 06:31:00 EST) ABSC Gel Interp: Negative (07/12/18 06:31:00 EST)Diagnostic Results XR Knee 1 or 2 Views Right 07/12/18 10:58:41 IMPRESSION: UNREMARKABLE RECENT RIGHT TOTAL KNEE ARTHROPLASTY PLACEMENT. CLINICAL HISTORY: Recent right knee replacement. COMPARISON: 07/01/2018. TECHNIQUE: Portable AP and cross table lateral radiographs of the right knee were obtained. FINDINGS: A total right knee arthroplasty has been placed in good position. There is no evidence of hardware loosening, secondary fracture, or other findings of concern identified. Soft tissue emphysema is noted from recent placement. Signed By: Jammie CASTILLO, Issa Bonds [facility] Comment on above: Result Comment: Elec tronically Signed By: KEVIN BERMEO, Trupti\.br\Date and Time Signed: 07/12/18 12:46 EST\.br\Electronically Co-Signed By: CRISTOPHER CASTILLO, Suzy\.br\Date and Time Co-Signed: 07/12/18 13:05 EST Interdisciplinary Note - Hubert e Manageron 07-12-2018 INR Coag RelTime (Bld) Spokewith patient, no family in room. discussed with patient that I spoke with Xiomara Albright and her insurance does not cover 360 program and will need [facility] at discharge. Pt is agreeable with this. Verified PCP and insurance, discussed INPT status. Pt denies any questions or concerns about dc plans. Whiteboard updated. Normal [facility] Interdisciplinary Note - PTo n 07-12-2018 Interdisciplinary Note - PT PT Evaluation completed with an AM PAC score of 17/24. Pt performing bed mobility with SBA and transfers with CGA. Pt was able to ambulate 65 feet with FWW with CGA. Will follow daily. Please see PT treatment note for further recommendations Normal [facility] Main OR PACU I Recordon 06-29 Main OR PACU I Record PACU Phase I Docum ent Type FT Summary Primary Physician: Abrahan Pruett DO Finalized Date/Time: 07/12/18 12:16:59 Pt. Name: MAVIS PICKARD Evelia Jhaveri/Sex: 1960 Female Med Rec #: [id number] Physician: Abrahan Pruett DO Financial #: [id number] Pt. Type: I Room/Bed: [place] [address] Admit/Disch: 07/12/18 05:38:00 - Institution: Case Times PACU I FT Pre-Care Text: Identifies barriers to communication and implements measures to provide psychological support Develops individualized plan of care, and ensures continuity of care Maintains patient's dignity and privacy, and maintains patient confidentiality Identifies and reports philosophical, cultural, and spiritual beliefs and values Identifies individual values and wishes concerning care Implements aseptic technique, and administers prescribed antibiotic therapy and immunizing agents as ordered Evaluates postoperative tissue perfusion Implements thermoregulation measures, and monitors body temperature Evaluates postoperative respiratory status Evaluates postoperative cardiac status Evaluates postoperative neurological status Assesses pain control, collaborated in initiating patient-controlled analgesia and implements alternative methods of pain control Verifies allergies, administers prescribed medications and solutions, evaluates response to medications Entry 1 In PACU I 07/12/18 10:09:00 Discharge from PACU 07/12/18 10:39:00 I Outcomes Met? Yes Last Modified By: Lashaun POSADA, Clementina Holland 07/12/18 12:16:50 Post-Care Text: The patient demonstrates knowledge of the expected response to the operative or invasive procedure The patient's care is consistent with the individualized perioperative plan of care The patient's right to privacy is maintained The patient's value system, lifestyle, ethnicity, and culture are considered, respected, and incorporated into the perioperative plan of care The patient participates in decisions affecting his or her perioperative plan of care The patient is free from signs and symptoms of infection The patient has wound/tissue perfusion consistent with or improved from baseline levels established preoperatively The patient is at or returning to normothermia at the conclusion of the immediate postoperative period The patient's respiratory function is consistent with or improved from baseline levels established preoperatively The patient's cardiovascular status is consistent with or improved from baseline levels established preoperatively The patient's cardiovascular status is consistent with or improved from baseline levels established preoperatively The patient demonstrates and/or reports adequate pain control throughout the perioperative period The patient received appropriate medication(s), safely administered during the perioperative period Acuity Level PACU I FT Entry 1 Start Time 07/12/18 10:09:00 Stop Time 07/12/18 10:39:00 Acuity Level Acuity Level I Last Modified By: Clementina Wilks RN 07/12/18 12:16:58 Finalized By: Clementina Wilks RN Document Signatures Signed By: Clementina Wilks RN 07/12/18 12:16 Normal [facility] Main OR Preoperative Recordo n 07-12-2018 Main OR Preoperative Record PreOp Document Type FT Summary Primary Physician: Abrahan Pruett DO Finalized Date/Time: 07/12/18 08:26:12 Pt. Name: NEERAJMAVIS/Sex: 1960 Female Med Rec #: [id number] Physician: Abrahan Pruett DO Financial #: [id number] Pt. Type: Room/Bed: [place] [address] Admit/Disch: 07/12/18 05:38:12 - Institution: Case Times PreOp FT Pre-Care Text: Verifies consent for planned procedure, identifies individual values and wishes concerning care, includes family members in perioperative teaching Entry 1 Patient Times. In Pre Surgery 07/12/18 06:00:00 Out Pre Surgery 07/12/18 07:42:00 Outcomes Met? Yes Last Modified By: Latrice Harrington RN 07/12/18 08:26:08 Post-Care Text: The patient participates in decisions affecting his or her perioperative plan of care Finalized By: Latrice Harrington RN Document Signatures Signed By: Latrice Harrington RN 07/12/18 08:26 [facility] Operative Reporton 8 Operative Report Date of Surgery: 07/12/2018SURGEON: Yoni Noland Jr., D.O.PREOPERATIVE DIAGNOSIS: Postoperative pain control requested by patientand surgeonPOSTOPERATIVE DIAGNOSIS: Postoperative pain control requested by patientand surgeonOPERATION: Right adductor canal block utilizing ultrasound guidanceANESTHESIA: Local with monitored anesthesia carePROCEDURE: The patient was interviewed and examined. The anesthesiaoptions were discussed including adductor canal block for postoperativeanalgesia. The discussion included the procedure, risks and benefits andalternatives to the procedure. The patient's questions were all answeredand the patient elected to proceed with the adduction canal block forpostoperative pain relief.The patient was placed on the monitors, electrocardiogram, noninvasiveblood pressure machine and pulse oximetry. I.V. sedation was thenadministered with a total of midazolam 2 mg. The mid thigh was preppedwith Chloraprep and sterilely draped. The anatomy was identified withultrasound and then under ultrasound guidance, the femoral nerve wasidentified with a 21 gauge 100 mm Pajunk needle. After attemptedaspiration for blood, a solution of Naropin 0.3% containing 3 mg ofDecadron, total volume of 27 mL was slowly injected with frequentaspirations without signs or symptoms of intravascular injection. Thepatient tolerated the procedure well. There were signs and symptoms of ablock within minutes after completion of the procedure. The patient thenproceeded to undergo general anesthesia for the proposed procedure.Yoni Noland Jr., D.O.glsDictated: 07/12/2018 #[id number]: 07/12/2018 #[id number]: Yoni Noland Jr., D.O. [facility] Comment on above: Result Comment: Elec tronically Signed By: Yoni Noland JR, DO\.br\Date and Time Signed: 07/12/18 16:17 EST Patient Education - Texton 1 09-12-2017 Patient Education - Text Abrahan Pruett D.O.[facility] [id number] [id number] ATIVE TOTAL KNEE ARTHROPLASTY HOME DISCHARGE INSTRUCTIONSINCISION CARE:Follow AQUACEL dressing protocol as instructed. See AQUACEL sheet for details. After AQUACEL dressing removed change dry dressing daily as instructed until dry scabs completely resolved to avoid incision irritation.If the incision is dry, apply a dry dressing only. If any drainage is noted apply Betadine liquid over the drainage only - do not excessively apply Betadine. Dressing changes may be done more often as needed. You may shower, but do not have incision under water until all scabs completely gone. Please notify the office if any increase in redness, tenderness, drainage, fever, or wound separation is noted beyond this point.Compression stockings may be helpful if any significant or uncomfortable swelling in the legs is noted postoperatively. Use and removal instructions should be given by physical therapy. If the swelling is below the knee, knee high compression stockings may suffice. If this does cause swelling into the thigh region, waist high compression stockings may be beneficial as well. These can be obtained from most pharmacies, or can be obtained from the hospital or through Home Health. The mild grade compression stockings are best used initially. You may need assistance when applying or removing the compression stocking. MEDICATIONS:You may resume your home medications at the time of discharge.Pain medication has been prescribed as well. You may continue to use the pain medication every four hours as needed. Any narcotic pain medication can cause side effects including stomach upset, constipation, or light-headedness. You should not drive or operate machinery, or use alcohol while using the narcotic pain medication. You should not use other pain medications with this prescription pain medication unless further directed by your physician.Deep Venous Thrombosis Prophylaxis ? to prevent Blood ClotsA blood thinner that helps prevents the development of blood clots in the legs, was used during your hospitalization. Blood thinner should be continued after discharge X Aspirin Therapy ? patients with no history of blood clots For prevention of deep venous thrombosis and pulmonary embolization, continue to take one 81 mg stomach coated Baby Aspirin twice daily with meals for 30 days postop. Please notify the office if you have any sensitivity to Aspirin products or if any problems develop such as stomach upset, increased bleeding, bruising or ringing in the ears.PHYSICAL THERAPY:Continue the range of motion and strengthening exercises initiated in Physical Therapy in the hospital. Continue weight bearing, as ordered, to the operated knee for four to six weeks as directed in Physical Therapy, or until your strength is improved and Physical Therapy will then allow you to progress to full weight. This will be with the use of a walker or crutches initially. After four or six weeks you may then progress to the use of one crutch, or a cane. A quad-cane is preferred as this is more stable.Physical therapy as begun in the hospital will continue at home, possible with the hotel administrative assistant of Home Health Physical Therapy or in the hospital as an outpatient. When you have become independent with the physical therapy program, this will then be discontinued as a supervised program and you will be instructed to continue the physical therapy exercises at home.PHYSICAL THERAPY CONT.Your exercises are west to successful rehabilitation. You should gain full extension first, hopefully before hospital discharge, then continue to do the exercises to maintain this, and gain 90 degrees flexion by one month post-op. Do the exercises daily, twice if preferred. ALL TOTAL KNEES CLICK- all total knees click as they are composed of cobalt-chromium and titanium. This is a completely normal sound and no cause for alarm. It does not mean something is loose. If you have further concerns, this can be discussed at your post-op visit.DRIVING:Driving is legal, but you must be able to maintain control of your car at all times. Driving too soon, you are considered an impaired driver/refuse collector, and this could be a problem. It is therefore advised not to drive until after your first office visit following surgeryFOLLOW-UP OFFICE VISIT: Alina Pruett D.O.Revised: 2010 [facility] Progress Note-Physicianon Protein mass conc Patient: ELEANOR PICKARD Age: 58 years Sex: Female : 1960 Associated Diagnoses: None Author: Yoni Noland JR, DO Preoperative Information Anesthesia history: Patient History: Pt./ family denies any personal or family hx of problems/difficulties with anesthesia.. Re-eval prior to induction: Inital eval reviewed: No significant interval change, NPO 10 hours.. Review of Systems Constitutional: See nursing assessment.. Cardiovascular: Cardiac risk assessment performed. Pt. denies any significant change in their cv hx.. Respiratory: Pt. denies any signicant change in their respiratory status.. Neurologic: Pt. denies any acute neurological changes.. Health Status Allergies: Allergic Reactions (Selected)ModeratePenicill in- Rash.Sulfamethoxazole- Rash., Allergies (2) Active Reactionpenicillin Rashsulfamethoxazole Rash Current medications: (Selected) Inpatient MedicationsOrderedDilaudid 2 mg Injection: 0.4 mg = 0.2 mL, Injection, IV Push, q4min PRN Pain for 8 hour(s), Stop date 07/12/18 16:51:00 EST, Routine, Start date 07/12/18 8:52:00 ESTExparel 1.3% (13.3 mg/mL) injectable suspension: 266 mg = 20 mL, Injection, Misc, Once, Stop date 07/12/18 9:00:00 EST, Routine, Start date 07/12/18 9:00:00 EST, 20 ml given to field with 50 ml 0.9% sodium chloride and 30 ml 0.25% Sensorcaine with epinephrineLactated Ringers IV Zoey 1000 mL 1,000 mL: 1,000 mL, IV, 100 mL/hr, Routine, Start date 07/12/18 8:52:00 EST, 10 hour(s), Total volume (mL): 1,000Lactated Ringers IV Zoey 1000 mL 1,000 mL: 1,000 mL, IV, 150 mL/hr, Routine, Start date 07/12/18 6:00:00 EST, 6.7 hour(s), Total volume (mL): 1,000Ofirmev 10 mg/mL intravenous solution: 1,000 mg = 100 mL, Soln-IV, IV Piggyback, Once, Stop date 07/12/18 9:00:00 EST, Routine, Start date 07/12/18 9:00:00 EST, 400 mL/hr, Infuse over 15 minute(s), to be given during total joint replacementPhenergan 25 mg/mL Injection: 12.5 mg = 0.5 mL, Injection, IV Push, q2min PRN Other (see comment) for 2 dose(s), Stop date Limited # of times, Routine, Start date 07/12/18 8:52:00 ESTtranexamic acid 1000 mg/ 50 mL NS IVPB: 1,000 mg = 50 mL, Soln-IV, IV Piggyback, Once, Stop date 07/12/18 9:00:00 EST, Routine, Start date 07/12/18 9:00:00 EST, 100 mL/hr, Infuse over 30 minute(s)Documented MedicationsDocumentedFLUox etine 60 mg oral tablet: 60 mg = 1 tab(s), Oral, Daily, Refills(s) 0, DepressionFlovent Diskus 250 mcg inhalation powder: 250 microgram, Inhalation, BID, Refills(s) 0, AsthmaJanuvia 100 mg Tab: 100 mg = 1 tab(s), Oral, Daily, # 30 tab(s), Refills(s) 0, Blood glucoseLantus Solostar Pen 100 units/mL subcutaneous solution: 15 unit(s), SubCutaneous, Daily, Refills(s) 0, Blood glucosePro-Air HFA CFC free 90 mcg/inh MDI: 2 puff(s), Inhalation, QID Shortness of breath or wheezing, Refill(s) 0, AsthmabusPIRone 30 mg oral tablet: 60 mg = 2 tab(s), Oral, Daily, # 180 tab(s), Refills(s) 0, Depressionmetformin 1000 mg Tab: 1,000 mg = 1 tab(s), Oral, BID, Refills(s) 0, Blood glucose, Medications (7) ActiveScheduled: (3)acetaminophen 1,000 mg 100 mL, IV Piggyback, Oncebupivacaine liposome 1.3% (13.3 mg/mL) SUSP [F] 266 mg 20 mL, Misc, Oncetranexamic acid 1,000 mg 50 mL, IV Piggyback, OnceContinuous: (2)Lactated Ringers 1,000 mL 1,000 mL, IV, 150 mL/hrLactated Ringers 1,000 mL 1,000 mL, IV, 100 mL/hrPRN: (2)HYDROmorphone 2 mg/mL Inj [F] 0.4 mg 0.2 mL, IV Push, [id number] 25 mg/mL Inj [F] 12.5 mg 0.5 mL, IV Push, q2min Problem list: All ProblemsDiabetes mellitus, insulin dependent (IDDM), controlled / SNOMED CT 445766539 / ConfirmedAsthma / SNOMED CT 627098703 / ConfirmedLocalized osteoarthritis of knee / SNOMED CT 541417436 / Confirmed, Active Problems (3)Asthma Diabetes mellitus, insulin dependent (IDDM), controlled Localized osteoarthritis of knee Histories Past Medical History: No active or resolved past medical history items have been selected or recorded. Family History: HypothyroidismSisterPrimar y malignant neoplasm of lungMotherPrimary malignant neoplasm of female genital organMotherDiabetes mellitus type 2Father Procedure history: Endometrial ablation ([id number]).achilles tendon lengthening, left. Social History Social & Psychosocial FljpcbCbznqgf53/03/2018 Risk Assessment: Low RiskSubstance Abuse07/01/2018 Risk Assessment: Denies Substance PwbwzLojwtby19/03/2018 Risk Assessment: Denies Tobacco Use. Physical Examination Vital Signs (last 24 hrs) Last Charted Temp Oral 36.4 DegC (JUL 12:)Heart Rate Apical 84 bpm (JUL 12)Resp Rate 16 br/min (JUL 12)SBP H 156 mmHg (JUL 12)DBP 74 mmHg (JUL 12)SpO2 97 % (JUL 12) Airway: Normal oral/pharyngeal anatomy.. Respiratory: Adequate air exchange.. Cardiovascular: Adequate perfusion and function. Review / Management Results review: No qualifying data available. Plan [place] [employer] (ASA) physical status classification: Class III. Anesthetic Preoperative Plan Anesthesia: Regional (Spinal, ADDUCTOR CANAL BLOCK). Anesthetic plan, risks, benefits, and alternatives discussed with the patient and/or family. Pt. and/or family present and agree to proceed as planned.. Discussed the importance of abstaining from tobacco products, and offered counseling if pt. desired.. Normal [facility] Comment on above: Result Comment: Elec tronically Signed By: Yoni Noland JR, DO.kevan\Date and Time Signed: 07/12/18 08:54 EST UA With Cult Reflexon 2017 Bilirubin Ql (U) Negative Normal Negative [facility] Comment on above: Performed By: #### 1 [id number] ####[facility] [address] [place] [address] Clarity Nom (U) CLEAR Normal Clear [facility] Comment on above: Performed By: #### 1 [id number] ####[facility] [address] [place] [address] Color Auto Nom (U) YELLOW Normal Yellow [facility] Comment on above: Performed By: #### 1 [id number] ####[address] [address] Epithelial cells.squamous LM.HPF #/area (Urine sed) 0-2 Normal 0-2 [facility] Comment on above: Performed By: #### 1 [id number] ####[address] [address] Glucose Test strip mass conc (U) Negative Normal Negative [facility] Comment on above: Performed By: #### 1 [id number] ####[address] [address] Hemoglobin Test strip Ql (U) Negative Normal Negative [facility] Comment on above: Performed By: #### 1 [id number] ####[address] [address] Ketones mass conc (U) Negative Normal Negative [facility] Comment on above: Performed By: #### 1 [id number] ####[address] [address] [place].plasma/Lithiu m.RBC mass ratio (Bld) 0-3 Normal 0-3 [facility] Comment on above: Performed By: #### 1 [id number] ####[address] [address] Mucus LM Ql (Urine sed) TRACE Normal [facility] Comment on above: Performed By: #### 1 [id number] ####[address] [address] Nitrite Test strip Ql (U) Negative Normal Negative [facility] Comment on above: Performed By: #### 1 [id number] ####[address] [address] pH Test strip (U) 5.5 [pH] Invalid Interpretation Code 5.0-9.0 [facility] Comment on above: Performed By: #### 1 [id number] ####[facility] [address] [place] [address] Protein mass conc (U) Negative Normal Negative [facility] Comment on above: Performed By: #### 1 [id number] ####[facility] [address] [place] [address] Specific gravity Relative Density (U) >=1.030 Invalid Interpretation Code 1.005-1.03 0 [facility] Comment on above: Performed By: #### 1 [id number] ####[facility] [address] [place] [address] UA Spec Desc Salguero Normal [facility] Comment on above: Performed By: #### 1 [id number] ####[facility] [address] [place] [address] Urobilinogen Test strip Qn (U) 0.2 {Brittany'U}/dL Normal 0.0-1.0 [facility] Comment on above: Performed By: #### 1 [id number] ####[facility] [address] [place] [address] WBC Auto Ql (U) Negative Normal Negative [facility] Comment on above: Performed By: #### 1 [id number] ####[facility] [address] [place] [address] WBC LM.HPF #/area (Urine sed) 0-5 Normal 0-5 [facility] Comment on above: Performed By: #### 1 [id number] ####[address] [address] XR Knee 1 or 2 Views Righton 07-12-2018 XR Knee 1 or 2 Views Right Exam Date/Time:07/12/2018 10:23 ESTReason for Exam:Post-op evaluation;Other (please specify)ReportIMPRESSION: UNREMARKABLE RECENT RIGHT TOTAL KNEE ARTHROPLASTY PLACEMENT.CLINICAL HISTORY: Recent right knee replacement.COMPARISON: 07/01/2018.TECHNIQUE: Portable AP and cross table lateral radiographs of the right knee wereobtained.FINDINGS: A total right knee arthroplasty has been placed in good position.There is no evidence of hardware loosening, secondary fracture, or other findings ofconcern identified.Soft tissue emphysema is noted from recent placement. FINAL REPORT Dictated: 07/12/2018 10:55 am Issa Agudelo MD Signed (Electronic Signature): 07/12/2018 10:55 am Signed by: Issa Agudelo MD Transcribed by: DENNY Technologist: MARAL [facility] Coding Summary.on 07-03-2018 Coding Summary. CODING DATE: [facility] STATUS: Home (Routine DC) PAYOR: [facility] DESCRIPTION 5521 Level 1 Imaging without Contrast ADMIT DX: REASON FOR VISIT DX: Z01.818 Encounter for other preprocedural examination FINAL DX: PRINCIPAL: Z01.818 Encounter for other preprocedural examination SECONDARY: M17.11 Unilateral primary osteoarthritis, right knee PYMT PROC APC STAT DESCRIPTION DOCTOR NAME DATE NOTE: The code number assigned matches the documented diagnosis and / or procedure in the patient's chart. However, the narrative phrase printed from the coding software may appear abbreviated, or result in slightly different terminology. Coded By: Shell Nesbitt CphT Date Saved: 07/02/2018 09:07 am [facility] Coding Summary. CODING DATE: [facility] STATUS: Home (Routine DC) PAYOR: [place] APC DESCRIPTION 5521 Level 1 Imaging without Contrast ADMIT DX: REASON FOR VISIT DX: Z01.818 Encounter for other preprocedural examination FINAL DX: PRINCIPAL: Z01.818 Encounter for other preprocedural examination SECONDARY: M17.11 Unilateral primary osteoarthritis, right knee PYMT PROC APC STAT DESCRIPTION DOCTOR NAME DATE NOTE: The code number assigned matches the documented diagnosis and / or procedure in the patient's chart. However, the narrative phrase printed from the coding software may appear abbreviated, or result in slightly different terminology. Coded By: Shell Nesbitt CphT Date Saved: 07/02/2018 09:07 am [facility] ABO/Rhon 07-02-2018 ABO/Rh Positive Invalid Interpretation Code [facility] Comment on above: Performed By: #### 2 [id number] ####[facility] [address] [place] [address] BUNon 07-02-2018 Urea nitrogen mass conc 12 mg/dL Normal 5-21 [facility] Comment on above: Performed By: #### 1 9704588, 2158414, 4429607, 0665652, 260499019, 3405159, 1194930 ####[facility] [address] [place] [address] CBC w/Indiceson 07-02-2018 Erythrocyte distribution width Auto Ratio (RBC) 14.2 % Normal 10.9-14.2 [facility] Comment on above: Performed By: #### 1 6422326, 2586263, 9741350, 8348124, 128503561, 3231499, 9438260 ####[facility] [address] [place] [address] Hematocrit Auto Volume Fraction (Bld) 38.7 % Normal 34.0-46.0 [facility] Comment on above: Performed By: #### 1 7467196, 0460086, 1648500, 4405501, 182748155, 9510414, 4800378 ####[facility] [address] [place] [address] Hemoglobin mass conc (Bld) 13.0 g/dL Normal 12.0-16.0 [facility] Comment on above: Performed By: #### 1 1334439, 4668702, 1513927, 8252664, 237826339, 3518636, 4748168 ####[facility] [address] [place] [address] MCH Auto Entitic mass (RBC) 27.8 pg Normal 27.0-34.0 [facility] Comment on above: Performed By: #### 1 6762686, 2616750, 2128148, 3258856, 545636204, 9139371, 7436737 ####[facility] [address] [place] [address] MCHC Auto mass conc (RBC) 33.5 g/dL Normal 31.4-39.3 [facility] Comment on above: Performed By: #### 1 6896896, 0615613, 6837799, 6589961, 131814169, 5311433, 9727395 ####[facility] [address] [place] [address] MCV Auto Entitic volume (RBC) 83.0 fL Normal 80.0-100.0 [facility] Comment on above: Performed By: #### 1 1266757, 8702718, 1675345, 2524911, 799001205, 8847833, 1628348 ####[place] [address] [place] [address] Platelet mean volume Auto Entitic volume (Bld) 9.1 fL Normal 6.4-10.8 [facility] Comment on above: Performed By: #### 1 3085067, 2837671, 8206813, 3023670, 627840000, 1999931, 2384274 ####[place] [address] [place] [address] Platelets Auto #/vol (Bld) 282.0 E9/L Normal 150.0-500. 0 [facility] Comment on above: Performed By: #### 1 1022243, 6587533, 0049804, 3512950, 187855067, 6696187, 2870818 ####[place] 7657457 RBC Auto #/vol (Bld) 4.7 E12/L Normal 4.3-5.9 [facility] Comment on above: Performed By: #### 1 8011464, 2706129, 4474500, 3046306, 654405088, 4632864, 8457743 ####[place] [address] [place] [address] WBC corrected for nucl RBC Auto #/vol (Bld) 8.0 E9/L Normal 4.0-11.0 [facility] Comment on above: Performed By: #### 1 8476502, 8810896, 6697321, 5091012, 469994808, 0715293, 8213095 ####[address] [address] Creatinineon 07-02-2018 Creatinine mass conc 0.7 mg/dL Normal 0.5-1.3 [facility] Comment on above: Performed By: #### 1 5390693, 4216576, 5319604, 4270571, 355106745, 0644216, 7778037 ####[facility] [address] [place] [address] Glu Fastingon 07-02-2018 Glucose mass conc 163 mg/dL High 55-99 [facility] Comment on above: Performed By: #### 1 1918354, 4788396, 6983740, 6595820, 566730645, 5348325, 9575204 ####[facility] [address] [place] [address] FbyT0ihb 07-02-2018 Hemoglobin A1c/Hemoglobin.total Calculated mass fraction (Bld) 9.3 % High <=5.9 [facility] Comment on above: Performed By: #### 1 8420412, 1262805, 0334411, 0778063, 516170529, 2831277, 7171229 ####[facility] [address] [place] [address] Lyteson 07-02-2018 Anion gap 3 molar conc 11 mmol/L Normal 6-16 [facility] Comment on above: Performed By: #### 1 5512864, 0669492, 9936249, 2087442, 090336416, 9814964, 1786003 ####[facility] [address] [place] [address] Chloride molar conc 99 mmol/L Low 101-111 [facility] Comment on above: Performed By: #### 1 7025986, 1547834, 6976419, 1894660, 960544674, 5243540, 9716810 ####[facility] [address] [place] [address] CO2 molar conc 28 mmol/L Normal 21-31 [facility] Comment on above: Performed By: #### 1 8007855, 6296721, 0533768, 4220945, 694253846, 7848623, 4463773 ####[facility] [address] [place] [address] Potassium molar conc 4.0 mmol/L Normal 3.5-5.3 [facility] Comment on above: Performed By: #### 1 0248537, 6762244, 5863113, 7669693, 275829347, 7599397, 9183966 ####[facility] [address] [place] [address] Sodium molar conc 134 mmol/L Low 135-145 [facility] Comment on above: Performed By: #### 1 1815991, 4830233, 9184437, 9830060, 197753937, 8959991, 6347675 ####[facility] [address] [place] [address] UA With Cult Reflexon 2017 Bilirubin Ql (U) Negative Normal Negative [facility] Comment on above: Performed By: #### 1 4779500 ####[facility] [address] [place] [address] Clarity Nom (U) CLEAR Normal Clear [facility] Comment on above: Performed By: #### 1 4054614 ####[address] [address] Color Auto Nom (U) YELLOW Normal Yellow [facility] Comment on above: Performed By: #### 1 3347172 ####[address] [address] Epithelial cells.squamous LM.HPF #/area (Urine sed) 0-2 Normal 0-2 [facility] Comment on above: Performed By: #### 1 3822726 ####[facility] [address] [place] [address] Glucose Test strip mass conc (U) Negative Normal Negative [facility] Comment on above: Performed By: #### 1 1701936 ####[facility] [address] [place] [address] Hemoglobin Test strip Ql (U) Negative Normal Negative [facility] Comment on above: Performed By: #### 1 4675965 ####[facility] [address] [facility] [place] [address] Ketones mass conc (U) Negative Normal Negative [facility] Comment on above: Performed By: #### 1 6145599 ####[place] [address] [place] [address] Ladson.plasma/Lithiu m.RBC mass ratio (Bld) 0-3 Normal 0-3 [facility] Comment on above: Performed By: #### 1 5814965 ####[facility] [address] [facility] [place] [address] Mucus LM Ql (Urine sed) TRACE Normal [facility] Comment on above: Performed By: #### 1 3205405 ####[address] [address] Nitrite Test strip Ql (U) Negative Normal Negative [facility] Comment on above: Performed By: #### 1 6463265 ####[address] [address] pH Test strip (U) 7.0 [pH] Invalid Interpretation Code 5.0-9.0 [facility] Comment on above: Performed By: #### 1 7331497 ####[place] [address] [facility] [place] [address] Protein mass conc (U) Negative Normal Negative [facility] Comment on above: Performed By: #### 1 6015103 ####[place] [address] [facility] [place] [address] Specific gravity Relative Density (U) 1.020 Invalid Interpretation Code 1.005-1.03 0 [facility] Comment on above: Performed By: #### 1 9754227 ####[facility] [address] [facility] [place] [address] UA Spec Desc Clean Catch Normal [facility] Comment on above: Performed By: #### 1 3843170 ####[place] [address] [place] [address] Urobilinogen Test strip Qn (U) 0.2 {Brittany'U}/dL Normal 0.0-1.0 [facility] Comment on above: Performed By: #### 1 0061853 ####[facility] [address] [place] [address] WBC Auto Ql (U) Negative Normal Negative [facility] Comment on above: Performed By: #### 1 6427664 ####[facility] [address] [place] [address] WBC LM.HPF #/area (Urine sed) 0-5 Normal 0-5 [facility] Comment on above: Performed By: #### 1 2759286 ####[facility] [address] [place] [address] eGFRon 07-02-2018 GFR/1.73 sq M predicted among blacks MDRD vol rate/area (S/P/Bld) mL/min/{1.73_m2} Normal >=59 [facility] Comment on above: Order Comment: Order added by Discern Expert. Result Comment: eGFR is race adjusted. AA=. Performed By: #### 1 3916242, 1384372, 7734981, 8192897, 457654461, 8568533, 0503248 ####[facility] [address] [place] [address] GFR/1.73 sq M predicted among non-blacks MDRD vol rate/area (S/P/Bld) mL/min/{1.73_m2} Normal >=59 [facility] Comment on above: Order Comment: Order added by Discern Expert. Result Comment: Public Safety Officer elin kidney disease could be indicated at eGFR's of less than 60 mL/min/1.73m2. Kidney failure is indicated at less than 15 mL/min/1.73m2. Performed By: #### 1 2643720, 3609251, 0835680, 3328942, 397313076, 2328215, 8718974 ####[facility] [address] [place] [address] XR Chest 2 Viewson 8 XR Chest 2 Views Exam Date/Time:2017 10:15 ESTReason for Exam:PRE OP;P.A.T.ReportIMPRESSION: NO ACTIVE PULMONARY DISEASE.COMMENT: PA and lateral views of chest in comparison to the previous examination doneon 08/04/2009 reveal upper limits of normal sized heart and unremarkablebronchovascula r markings. There are no pneumonic infiltrates or pleural effusion. Themediastinum and the bony structures are unremarkable. FINAL REPORT Dictated: 07/01/2018 4:08 pm James Arevalo M.D. Signed (Electronic Signature): 07/01/2018 4:31 pm Signed by: James Arevalo M.D. Transcribed by: shama Technologist: DARBY Diaz [facility] POINT OF CARE GLUCOSEon 06-30 Glucose mass conc 127 mg/dL Critically high 74-106 [facility] Comment on above: Performed By: #### P OCGLUC ####[facility] [address] XR ANKLE LT 2Von 07-27-2017 XR ANKLE LT 2V [address] [place] [address] Patient: MAVIS PICKARD Exam Date: 07/27/2017DOB: 1960 Gender:F : JUSTINA MILLER Admission #: [id number] : Order #: [id number] HERE TO VIEW EXAM RADIOLOGY REPORT PROCEDURE: RADIOGRAPH ANKLE LEFT 2 VIEWS COMPARISON: XR ANKLE LT 2V, 07/27/2017. INDICATIONS: Os trigonum impingement FINDINGS: BONES: No acute fracture or dislocation. Mild degenerative osteoarthritis of the midfoot. Enthesopathic spurring of the calcaneus.SOFT TISSUES: Mild subcutaneous emphysema posterior tibiotalar joint, in area of surgeryEFFUSION: None visible. OTHER: Bone detail is obscured by a fiberglass cast CONCLUSION: 1. Post surgical changes Dictated by: Jeffrey Reyna M.D. on 07/27/2017 at 14:45 Approved by: Jeffrey Reyna M.D. on 07/27/2017 at 14:46 Normal [facility] XR ANKLE LT 2V [address] [place] [address] Patient: MAVIS PICKARD Exam Date: 07/27/2017DOB: 1960 Gender:F : JUSTINA MILLER Admission #: [id number] : Order #: [id number] HERE TO VIEW EXAM RADIOLOGY REPORT PROCEDURE: RADIOGRAPH ANKLE LEFT 2 VIEWS COMPARISON: None. INDICATIONS: Tendinosis. Left ankle procedure under fluoro. Os trigonum impingement FINDINGS: 2 intraprocedural fluoroscopic images. Image #1 shows a hemostat pointed to the posterior talocalcaneal articulation where heterotopic ossification is identified. Image #2 demonstrates resection of the calcification CONCLUSION: 1. Images demonstrating resection of heterotopic calcification posterior talocalcaneal joint Dictated by: Jeffrey Reyna M.D. on 07/27/2017 at 14:06 Approved by: Jeffrey Reyna M.D. on 07/27/2017 at 14:07 Normal [facility] PROF CHEM 8 (BAS METB)on Anion gap 15.6 mmol/L Normal [facility] Comment on above: Performed By: #### B MP ####[facility] [address] [place] BUN/Creatinine Ratio 15.6 mg/mg Normal [facility] Comment on above: Performed By: #### B MP ####[facility] V[address] [place] Calcium 9.4 mg/dL Normal 8.4-10.2 [facility] Comment on above: Performed By: #### B MP ####[facility] [address] [place] [address] Chloride 101 mmol/L Normal 98-107 [facility] Comment on above: Performed By: #### B MP ####[facility] [address] [place] [address] CO2 30.0 mmol/L Normal 22.0-30.0 [facility] Comment on above: Performed By: #### B MP ####[facility] [address] [place] [address] Creatinine 0.82 mg/dL Normal 0.52-1.04 [facility] Comment on above: Performed By: #### B MP ####[facility] [address] [place] [address] eGFR (non-black) mL/min/{1.73_m2} Normal >=60 [facility] Comment on above: Performed By: #### B MP ####[facility] [address] [place] [address] Glucose mass conc 126 mg/dL Critically high 74-106 [facility] Comment on above: Performed By: #### B MP ####[facility] [address] [place] Potassium molar conc 4.3 mmol/L Normal 3.4-5.0 [facility] Comment on above: Performed By: #### B MP ####[facility] [address] [place] [address] [place] Sodium 142 mmol/L Normal 137-145 [facility] Comment on above: Performed By: #### B MP ####[facility] [address] [place] [address] [place] Urea nitrogen 13.0 mg/dL Normal 7.0-17.0 [facility] Comment on above: Performed By: #### B MP ####[facility] [address] [place], [place] [address]ken Anai GLYCOHEMOGLOBIN A1Con 2016 Glucose mass conc 229 mg/dL Normal [facility] Comment on above: Performed By: #### A 1C ####[facility] [address] [place], [place] [address]ken Anai Hemoglobin A1c/Hemoglobin.total mass fraction (Bld) 9.6 % Critically high <=6.0 [facility] Comment on above: Performed By: #### A 1C ####[facility] [address] [place] [address] Anai PROF CHEM 8 (BAS METB)on Anion gap 12.2 mmol/L Normal [facility] Comment on above: Performed By: #### B MP ####[facility] V[address] [place] BUN/Creatinine Ratio 18.8 mg/mg Normal [facility] Comment on above: Performed By: #### B MP ####[facility] Aj[address] [place] Calcium 9.7 mg/dL Normal 8.4-10.2 [facility] Comment on above: Performed By: #### B MP ####[facility] [address] [place] [address] [place] Chloride 99 mmol/L Normal 98-107 [facility] Comment on above: Performed By: #### B MP ####[facility] [address] [place] [address] [place] CO2 32.0 mmol/L Critically high 22.0-30.0 [facility] Comment on above: Performed By: #### B MP ####[facility] [address] [place] [address] [place] Creatinine 0.81 mg/dL Normal 0.52-1.04 [facility] Comment on above: Performed By: #### B MP ####[facility] [address] [place] [address] [place] eGFR (non-black) mL/min/{1.73_m2} Normal >=60 [facility] Comment on above: Performed By: #### B MP ####[facility] B[address] [place] Glucose mass conc 126 mg/dL Critically high 74-106 [facility] Comment on above: Performed By: #### B MP ####[facility] P[address] [place] Potassium molar conc 4.1 mmol/L Normal 3.4-5.0 [facility] Comment on above: Performed By: #### B MP ####[facility] [address] [place], [place] [address]Sfytth An[place] Sodium 140 mmol/L Normal 137-145 [facility] Comment on above: Performed By: #### B MP ####[facility] [address] [place], [place] [address]Rwqjlm Anai Urea nitrogen 15.0 mg/dL Normal 7.0-17.0 [facility] Comment on above: Performed By: #### B MP ####[facility] [address] [place], [place] [address] ANKLE LT WO CONon 017 CT ANKLE LT WO CON [address] [place] [address] Patient: MAVIS PICKARD Exam Date: 03/07/2017DOB: 1960 Gender:F : JUSTINA MILLER Admission #: [id number] : DR RASHAD TERAN Order #: [id number] HERE TO VIEW EXAM RADIOLOGY REPORT PROCEDURE: CT ANKLE LEFT WITHOUT CONTRAST COMPARISON: None. INDICATIONS: Osteochondral defect of ankle M95.8, chronic left ankle pain TECHNIQUE: Multi-planar CT images were created without IV contrast. DOSE: 115 mGycm FINDINGS: BONES: No acute fracture or dislocation. Degenerative osteoarthritis most significant at the tibiotalar joint with subchondral cystic change measuring 7 x 3 mm along the tibial plafond and a 10 x 11 x 5 mm osteochondral injury along the medial talar dome. Enthesopathic spurring of the calcaneus.SOFT TISSUES: Negative. No visible soft tissue swelling. EFFUSION: None visible. OTHER: Negative. CONCLUSION: 1. 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 on 03/07/2017 at 10:28 Approved by: Jeffrey Reyna M.D. on 03/07/2017 at 10:32 Normal [facility] Vital Signs Date Time Vital Sign Value Performing Clinician Facility 06-14-2023 08:30-0500 Body height 170.18 cm Rashad Teran Other [facility] Other 06-14-2023 08:30-0500 Body mass index (BMI) [Ratio] 36.18 kg/m2 Rashad Mast Other [facility] Other 06-14-2023 08:30-0500 Body temperature 97.6 [degF] Rashad Mast Other [facility] Other 06-14-2023 08:30-0500 Body weight 104.78 kg Rashad Mast Other [facility] Other 06-14-2023 08:30-0500 Diastolic blood pressure 78 mm[Hg] Rashad Mast Other [facility] Other 06-14-2023 08:30-0500 Respiratory rate 18 /min Rashad Mast Other [facility] Other 06-14-2023 08:30-0500 SaO2% (BldA) [Mass fraction] 96 % Rashad Mast Other [facility] Other 06-14-2023 08:30-0500 Systolic blood pressure 124 mm[Hg] Arshad Mast Other [facility] Other 06-03-2023 01:33-0400 Diastolic blood pressure 78 mm[Hg] DO Rashad Mast Work Phone: [facility] 06-03-2023 01:33-0400 Heart rate 75 /min DO Rashad Mast Work Phone: [facility] 06-03-2023 01:33-0400 Respiratory rate 16 /min DO Rashad Mast Work Phone: [facility] 06-03-2023 01:33-0400 SaO2% (BldA) [Mass fraction] 98 % DO Rashad Mast Work Phone: [facility] 06-03-2023 01:33-0400 Systolic blood pressure 140 mm[Hg] DO Rashad Mast Work Phone: [facility] 06-02-2023 21:56-0400 Body height 170.18 cm DO Rashad Mast Work Phone: [facility] 06-02-2023 21:56-0400 Body temperature 98.1 [degF] DO Rashad Mast Work Phone: [facility] 06-02-2023 21:56-0400 Body weight 116.57 kg DO Rashad Mast Work Phone: [facility] 05-21-2023 08:00-0400 Body height 170.18 cm Rashad Mast Other [facility] Other 05-21-2023 08:00-0400 Body mass index (BMI) [Ratio] 40.2 kg/m2 Rashad Mast Other [facility] Other 05-21-2023 08:00-0400 Body temperature 96.5 [degF] Rashad Mast Other [facility] Other 05-21-2023 08:00-0400 Body weight 116.44 kg Rashad Mast Other [facility] Other 05-21-2023 08:00-0400 Diastolic blood pressure 80 mm[Hg] Rashad Mast Other [facility] Other 05-21-2023 08:00-0400 Respiratory rate 18 /min Rashad Mast Other [facility] Other 05-21-2023 08:00-0400 SaO2% (BldA) [Mass fraction] 97 % Rashad Mast Other [facility] Other 05-21-2023 08:00-0400 Systolic blood pressure 124 mm[Hg] Rashad Mast Other [facility] Other 03-28-2023 08:53-0400 Body height 170.18 cm DO Rashad Mast Work Phone: [facility] 03-28-2023 08:53-0400 Body mass index (BMI) [Ratio] 40.7 kg/m2 DO Rashad Mast Work Phone: [facility] 03-28-2023 08:53-0400 Body weight 117.93 kg DO Rashad Mast Work Phone: [facility] 03-28-2023 08:47-0400 Body temperature 97.7 [degF] DO Rashad Mast Work Phone: [facility] 03-28-2023 08:47-0400 Diastolic blood pressure 83 mm[Hg] DO Rashad Mast Work Phone: [facility] 03-28-2023 08:47-0400 Heart rate 74 /min DO Rashad Mast Work Phone: [facility] 03-28-2023 08:47-0400 Respiratory rate 20 /min DO Rashad Mast Work Phone: [facility] 03-28-2023 08:47-0400 Systolic blood pressure 152 mm[Hg] DO Rashad Mast Work Phone: [facility] 02-26-2023 08:00-0400 Body height 170.18 cm Rashad Mast Other [facility] Other 02-26-2023 08:00-0400 Body mass index (BMI) [Ratio] 41.05 kg/m2 Rashad Mast Other [facility] Other 02-26-2023 08:00-0400 Body weight 118.89 kg Rashad Mast Other [facility] Other 02-26-2023 08:00-0400 Diastolic blood pressure 78 mm[Hg] Rashad Mast Other [facility] Other 02-26-2023 08:00-0400 Respiratory rate 18 /min Rashad Mast Other [facility] Other 02-26-2023 08:00-0400 SaO2% (BldA) [Mass fraction] 97 % Rashad Mast Other [facility] Other 02-26-2023 08:00-0400 Systolic blood pressure 140 mm[Hg] Rashad Mast Other [facility] Other 02-08-2023 10:00-0400 Body height 170.18 cm Rashad Mast Other [facility] Other 02-08-2023 10:00-0400 Body mass index (BMI) [Ratio] 40.91 kg/m2 Rashad Mast Other [facility] Other 02-08-2023 10:00-0400 Body temperature 97.6 [degF] Rashad Mast Other [facility] Other 02-08-2023 10:00-0400 Body weight 118.48 kg Rashad Mast Other [facility] Other 02-08-2023 10:00-0400 Diastolic blood pressure 68 mm[Hg] Rashad Mast Other [facility] Other 02-08-2023 10:00-0400 Respiratory rate 18 /min Rashad Mast Other [facility] Other 02-08-2023 10:00-0400 SaO2% (BldA) [Mass fraction] 98 % Rashad Mast Other [facility] Other 02-08-2023 10:00-0400 Systolic blood pressure 120 mm[Hg] Rashad Mast Other [facility] Other 10-16-2022 09:45-0400 Body height 170.18 cm Rashad Mast Other [facility] Other 10-16-2022 09:45-0400 Body mass index (BMI) [Ratio] 41.06 kg/m2 Rashad Mast Other [facility] Other 10-16-2022 09:45-0400 Body temperature 98.6 [degF] Rashad Mast Other [facility] Other 10-16-2022 09:45-0400 Body weight 118.93 kg Rashad Mast Other [facility] Other 10-16-2022 09:45-0400 Diastolic blood pressure 80 mm[Hg] Rashad Mast Other [facility] Other 10-16-2022 09:45-0400 Respiratory rate 18 /min Rashad Mast Other [facility] Other 10-16-2022 09:45-0400 SaO2% (BldA) [Mass fraction] 99 % Rashad Mast Other [facility] Other 10-16-2022 09:45-0400 Systolic blood pressure 122 mm[Hg] Rashad Mast Other [facility] Other 08-14-2022 09:15-0500 Body height 170.18 cm Rashad Mast Other [facility] Other 08-14-2022 09:15-0500 Body mass index (BMI) [Ratio] 41.22 kg/m2 Rashad Mast Other [facility] Other 08-14-2022 09:15-0500 Body temperature 96.7 [degF] Rashad Mast Other [facility] Other 08-14-2022 09:15-0500 Body weight 119.39 kg Rashad Mast Other [facility] Other 08-14-2022 09:15-0500 Diastolic blood pressure 80 mm[Hg] Rashad Mast Other [facility] Other 08-14-2022 09:15-0500 Respiratory rate 18 /min Rashad Mast Other [facility] Other 08-14-2022 09:15-0500 SaO2% (BldA) [Mass fraction] 96 % Rashad Mast Other [facility] Other 08-14-2022 09:15-0500 Systolic blood pressure 110 mm[Hg] Rashad Mast Other [facility] Other 06-26-2022 09:45-0500 Body height 170.18 cm Rashad Mast Other [facility] Other 06-26-2022 09:45-0500 Body mass index (BMI) [Ratio] 42.33 kg/m2 Rashad Mast Other [facility] Other 06-26-2022 09:45-0500 Body temperature 97.2 [degF] Rashad Mast Other [facility] Other 06-26-2022 09:45-0500 Body weight 122.61 kg Rashad Mast Other [facility] Other 06-26-2022 09:45-0500 Diastolic blood pressure 84 mm[Hg] Rashad Mast Other [facility] Other 06-26-2022 09:45-0500 Respiratory rate 18 /min Rashad Mast Other [facility] Other 06-26-2022 09:45-0500 SaO2% (BldA) [Mass fraction] 97 % Rashad Mast Other [facility] Other 06-26-2022 09:45-0500 Systolic blood pressure 124 mm[Hg] Rashad Mast Other [facility] Other 05-22-2022 11:45-0400 Body height 170.18 cm Rashad Mast Other [facility] Other 05-22-2022 11:45-0400 Body mass index (BMI) [Ratio] 42.66 kg/m2 Rashad Mast Other [facility] Other 05-22-2022 11:45-0400 Body temperature 97 [degF] Rashad Mast Other [facility] Other 05-22-2022 11:45-0400 Body weight 123.56 kg Rashad Mast Other [facility] Other 05-22-2022 11:45-0400 Diastolic blood pressure 76 mm[Hg] Rashad Mast Other [facility] Other 05-22-2022 11:45-0400 Respiratory rate 18 /min Rashad Mast Other [facility] Other 05-22-2022 11:45-0400 SaO2% (BldA) [Mass fraction] 96 % Rashad Mast Other [facility] Other 05-22-2022 11:45-0400 Systolic blood pressure 120 mm[Hg] Rashad Mast Other [facility] Other 03-27-2022 10:30-0400 Body height 170.18 cm Rashad Mast Other [facility] Other 03-27-2022 10:30-0400 Body mass index (BMI) [Ratio] 42.53 kg/m2 Rashad Mast Other [facility] Other 03-27-2022 10:30-0400 Body temperature 98.1 [degF] Rashad Mast Other [facility] Other 03-27-2022 10:30-0400 Body weight 123.2 kg Rashad Mast Other [facility] Other 03-27-2022 10:30-0400 Diastolic blood pressure 80 mm[Hg] Rashad Mast Other [facility] Other 03-27-2022 10:30-0400 Respiratory rate 18 /min Rashad Mast Other [facility] Other 03-27-2022 10:30-0400 SaO2% (BldA) [Mass fraction] 95 % Rashad Mast Other [facility] Other 03-27-2022 10:30-0400 Systolic blood pressure 110 mm[Hg] Rashad Mast Other [facility] Other 03-02-2022 17:15-0400 Body height 170.18 cm Rashad Mast Other [facility] Other 03-02-2022 17:15-0400 Body mass index (BMI) [Ratio] 41.23 kg/m2 Rashad Mast Other [facility] Other 03-02-2022 17:15-0400 Body temperature 97.7 [degF] Rashad Mast Other [facility] Other 03-02-2022 17:15-0400 Body weight 119.43 kg Rashad Mast Other [facility] Other 03-02-2022 17:15-0400 Diastolic blood pressure 80 mm[Hg] Rashad Mast Other [facility] Other 03-02-2022 17:15-0400 Respiratory rate 18 /min Rashad Mast Other [facility] Other 03-02-2022 17:15-0400 SaO2% (BldA) [Mass fraction] 97 % Rashad Mast Other [facility] Other 03-02-2022 17:15-0400 Systolic blood pressure 124 mm[Hg] Rashad Mast Other [facility] Other Encounters Encounter Date Encounter Type Care Provider Facility Start: 06-18-2023 End: 06-18-2023 ambulatory BALTAZAR Castro [facility] Not Available Start: 06-14-2023 End: 06-14-2023 ambulatory Rashad Mast Other [facility] Other Start: 06-14-2023 Office outpatient visit 25 minutes Rashad Mast [facility] Start: 06-14-2023 Telephone encounter Rashad Mast [facility] Start: 06-02-2023 End: 06-03-2023 Emergency department patient visit Rashad Pendleton Facility:[facility] Start: 06-02-2023 End: 06-03-2023 Emergency department patient visit DO Rashad Mast Work Phone: [facility] Work Phone: Start: 05-28-2023 End: 05-28-2023 ambulatory Rashad Mast Other [facility] Other Start: 05-28-2023 Telephone encounter Rashad Mast [facility] Start: 05-21-2023 End: 05-21-2023 ambulatory Rashad Mast Other [facility] Other Start: 05-21-2023 Office outpatient visit 25 minutes Rashad Mast [facility] Start: 03-28-2023 End: 03-28-2023 ambulatory Viki Copsey Facility:[facility] Start: 03-28-2023 End: 03-28-2023 ambulatory DO Rashad Mast Work Phone: [facility] Work Phone: Start: 03-28-2023 End: 03-28-2023 Discharged Recurring DO Rashad Mast Work Phone: [facility] [place] Work Phone: Start: 03-21-2023 End: 03-21-2023 ambulatory Rashad Mast Other [facility] Other Start: 03-21-2023 Telephone encounter Rashad Mast [facility] Start: 02-26-2023 End: 02-26-2023 ambulatory Rashad Mast Other [facility] Other Start: 02-26-2023 Office outpatient visit 15 minutes Rashad Mast [facility] Start: 02-09-2023 End: 02-09-2023 ambulatory Rashad Mast Other [facility] Other Start: 02-09-2023 Telephone encounter Rashad Mast [facility] Start: 02-08-2023 End: 02-08-2023 ambulatory Rashad Mast Other [facility] Other Start: 02-08-2023 Office outpatient visit 25 minutes Rashad Mast [facility] Start: 02-07-2023 End: 02-07-2023 ambulatory Rashad Mast Facility:[facility] Start: 02-07-2023 End: 02-07-2023 ambulatory DO Rashad Mast Work Phone: [facility] Work Phone: Start: 02-07-2023 End: 02-07-2023 Patient encounter procedure DO Rashad Mast Work Phone: [facility] Start: 01-16-2023 End: 01-16-2023 ambulatory Rashad Mast Other [facility] Other Start: 01-16-2023 Telephone encounter Rashad Mast [facility] Start: 12-26-2022 End: 12-26-2022 ambulatory Rashad Mast Other [facility] Other Start: 12-26-2022 Telephone encounter Rashad Mast [facility] Start: 11-22-2022 End: 11-22-2022 ambulatory Rashad Mast Other [facility] Other Start: 11-22-2022 Telephone encounter Rashad Mast [facility] Start: 10-21-2022 End: 10-21-2022 ambulatory Baltazar Visci Facility:[facility] Start: 10-21-2022 End: 10-21-2022 ambulatory DO Rashad Mast Work Phone: [facility] Work Phone: Start: 10-21-2022 End: 10-21-2022 Patient encounter procedure DO Rashad Mast Work Phone: [facility] Work Phone: Start: 10-17-2022 End: 10-17-2022 ambulatory Rashad Mast Other [facility] Other Start: 10-17-2022 Telephone encounter Rashad Mast [facility] Start: 10-16-2022 End: 10-16-2022 ambulatory Rashad Mast Other [facility] Other Start: 10-16-2022 Office outpatient visit 25 minutes Rashad Mast [facility] Start: 10-05-2022 End: 10-05-2022 ambulatory Rashad Mast Other [facility] Other Start: 10-05-2022 Telephone encounter Rashad Mast [facility] Start: 08-14-2022 End: 08-14-2022 ambulatory Rashad Mast Other [facility] Other Start: 08-14-2022 Office outpatient visit 15 minutes Arshad Mast [facility] Start: 08-08-2022 End: 08-08-2022 ambulatory Rashad Mast Other [facility] Other Start: 08-08-2022 Telephone encounter Rashad Mast [facility] Start: 06-26-2022 End: 06-26-2022 ambulatory Rashad Mast Other [facility] Other Start: 06-26-2022 Office outpatient visit 15 minutes Rashad Mast [facility] Start: 06-02-2022 End: 06-02-2022 ambulatory Rashad Mast Other [facility] Other Start: 06-02-2022 Telephone encounter Rashad Mast [facility] Start: 05-22-2022 End: 05-22-2022 ambulatory Rashad Mast Other [facility] Other Start: 05-22-2022 Office outpatient visit 25 minutes Rashad Mast [facility] Start: 03-27-2022 End: 03-27-2022 ambulatory Rashad Mast Other [facility] Other Start: 03-27-2022 Office outpatient visit 25 minutes Rashad Mast [facility] Start: 03-06-2022 End: 03-06-2022 ambulatory Rashad Mast Other [facility] Other Start: 03-06-2022 Telephone encounter Rashad Mast [facility] Start: 03-02-2022 End: 03-02-2022 ambulatory Rashad Mast Other [facility] Other Start: 03-02-2022 Office outpatient visit 25 minutes Rashad Mast [facility] Start: 02-22-2022 End: 02-22-2022 ambulatory Rashad Mast Other [facility] Other Start: 02-22-2022 Telephone encounter Rashad Mast [facility] Start: 02-02-2022 End: 02-02-2022 ambulatory Rashad Mast Other [facility] Other Start: 02-02-2022 Telephone encounter Rashad Mast [facility] Start: 01-18-2022 End: 01-18-2022 ambulatory Rashad Mast Other [facility] Other Start: 01-18-2022 Telephone encounter Rashad Mast [facility] Start: 12-01-2021 End: 12-01-2021 ambulatory Rashad Mast Other [facility] Other Start: 12-01-2021 Telephone encounter Rashad Mast [facility] Start: 11-22-2021 End: 11-22-2021 ambulatory Rashad Mast Other [facility] Other Start: 11-22-2021 Telephone encounter Rashad Mast [facility] Start: 06-08-2021 End: 06-08-2021 ambulatory Rashad Mast Other [facility] Other Start: 06-08-2021 Telephone encounter Rashad Mast [facility] Start: 05-18-2021 Telephone encounter Rashad Mast [facility] Start: 07-15-2018 End: 07-26-2018 Patient encounter procedure RASHAD MAST Facility:[facility] Start: 07-12-2018 End: 07-13-2018 Evaluation and management of inpatient Abrahan Pruett Facility:[facility] Start: 07-02-2018 End: 07-03-2018 Patient encounter procedure Abrahan Pruett Facility:[facility] Start: 07-27-2017 End: 07-27-2017 Ambulatory [facility] Facility:[facility] Start: 07-17-2017 End: 07-18-2017 Ambulatory [facility] Facility:[facility] Start: 05-04-2017 Ambulatory [facility] Facili ty:[facility] Start: 04-18-2017 End: 04-19-2017 Ambulatory [facility] Facility:[facility] Start: 03-07-2017 End: 03-08-2017 Ambulatory [facility] Facility:[facility] Procedures Date Procedure Procedure Detail Performing Clinician Start: 06-02-2023 SARS-CoV-2, Influenz a & RSV (PCR) DO Rashad Mast Work Phone: Plan of Treatment Date Care Activity Detail Author Start: 06-02-2023 Plain chest X-ray XR chest 2V* [facility] Start: 06-02-2023 XR Chest 2 Views [facility] Start: 10-21-2022 Screening mammograph y of bilateral breasts MM screening mammo BI w/CAD [facility] Patient Education Bronchitis, Adult ED [facility] Work Phone: Patient referral [facility] Work Phone: Immunizations Immunization Date Immunization Notes Care Provider Fa [facility] 05-21-2023 zoster vaccine recombinant Rashad Mast Other [facility] Other 05-21-2023 influenza, injectabl e, quadrivalent, preservative free Rashad Mast Other [facility] Other 05-25-2022 COVID-19 Pfizer (bivalent) Rashad Mast Other [facility] Other 05-25-2022 influenza, injectabl e, quadrivalent, preservative free Rashad Mast Other [facility] Other 03-22-2020 influenza, seasonal, injectable Rashad Mast Other [facility] Other 05-07-2019 influenza, seasonal, injectable Rashad Mast Other [facility] Other 09-29-2016 Toradol per 15 mg Rashad Mast Other [facility] Other 06-14-2016 influenza, injectabl e, quadrivalent, contains preservative Rashad Mast Other [facility] Other 05-02-2015 Toradol per 15 mg Rashad Mast Other [facility] Other Payers Date Payer Category Payer Self-pay [id number] 1960 Unknown [id number] 2.16.84 [id number] 1960 Unknown [id number] 2.16.84 [id number] 1960 Unknown [id number] 2.16.84 [id number] 1960 Unknown [id number] 1957 Unknown [id number] Unknown [id number] 2.16.8 [id number] Unknown [id number] 2.16.8 [id number] Unknown [id number] 2.16.8 [id number] Unknown [id number] 2.16.8 [id number] Social History Date Type Detail Facility Unknown if ever smoked [facility] Other Sex Assigned At Sex Assigned At Bir th [facility] Other Start: 03-19-2021 End: 06-02-2023 Tobacco smoking status NHIS Never smoked tobacco (finding) [facility] Start: 1960 Sex Assigned At Female F [facility] Medical Equipment Procedure Code Equipment Code Equipment Origin al Text Equipment Identifier Dates Start: 04-06-2017 Clinical Notes 05-18-2021 to 06-14-2023 Note Date & Type Note Facility 06-14-2023 Evaluation note Encounter Date Diagnosis Assessment Notes May, Unspecified asthma, uncomplicated (ICD-10 - J45.909) Her recent exacerbation appears to be quieting down. Her sugars did go up, but they are slowly improving now that she is off the steroids, I told her to keep watching these and would anticipate her sugars. Return back to normal baseline in the next few weeks. She will call me if they do not do so. May, Eustachian tube dysfunction, right (ICD-10 - H69.91) Clinically she has a middle ear effusion on the right, and there may be a component of allergic rhinitis. I advised a trial of OTC fluticasone nasal spray May, Dupuytren's contracture (ICD-10 - M72.0) We discussed options for this, I offered to refer her to hand surgery but she declines at this time May, Left hand paresthesia (ICD-10 - R20.2) Exam is benign, though symptoms may represent the start of carpal tunnel syndrome. We reviewed first-line treatments, I encouraged her to try an OTC nocturnal wrist splint and see how she does. Call if problems persist [facility] Other 10-30-2023 Evaluation note* Encounter Date Diagnosis Assessment Notes Treatment Notes Treatment Clinical Notes Apr, Unspecified asthma, uncomplicated (ICD-10 - J45.909) [facility] Other 10-23-2023 Evaluation note* Encounter Date Diagnosis Assessment Notes Treatment Notes Treatment Clinical Notes Apr, Type 2 diabetes mellitus without complications (ICD-10 - E11.9) I commended her on her excellent glycemic control. Keep working on weight loss. We discussed the risk of hypoglycemia, if her sugars start running low, I advised her to slowly decrease her dose of Lantus. She will return in 3 months for another A1c Apr, Need for shingles vaccine (ICD-10 - Z23) Apr, Flu vaccine need (ICD-10 - Z23) Apr, Neck pain (ICD-10 - M54.2) OMT provided (soft tissue, muscle energy, HVLA) with excellent results Apr, Cervical somatic dysfunction (ICD-10 - M99.01) Apr, Depression with anxiety (ICD-10 - F41.8) Continue current meds for now, warning signs reviewed, she will let me know if she is interested in any medication changes in the future Apr, Unspecified asthma, uncomplicated (ICD-10 - J45.909) Currently quiet, continue present meds [facility] Other 08-30-2023 Progress note Author Viki Mcnulty [facility] March 28, 2023 8:53am Note Date/Time March 28, 2023 8: 53am [facility] [address] [place] [address] Wound Center Provider Note Signed Patient: Mavis Pickard MR#: [id number] : 1960 Acct:[id number] Age/Sex: 63 / F Copies to: Jeffry/PreceptorRashadEvelia Mcnulty APRN~ HPI Date of Visit Date of Visit: Date of Service: 03/28/2023 Time of Service: 08:50 Narrative HPI: 02/28/23 Mavis is a 62-year-old female presenting to [facility] wound care program for an initial visit for evaluation and treatment of a right lower extremity ulceration that does appear to be venous stasis in nature. She was a patient here approximately 13 years ago and says that she has not really had anyissues except for the past few months when this area did decide to act up again. She has been followed by her primary care provider who has been keeping a closeeye on this area for her. We did decide to Escribe oral doxycycline for her just for 7 days because there may be a early cellulitis of the right lower extremity. We also chose to apply an Unna paste wrap and utilize topical Bactroban to the area. Supportive supplements were listed on her discharge paperwork such as a probiotic, collagen, vitamin C, and an anti-inflammatory diet. We discussed her seeing vascular and she has agreed to a referral to [facility] for her varicose veins- she had seen [facility] ago and was told more or less that nothing could be done for the veins at that time. She does wear compression socks faithfully. 03/21/23 much improved, saw [facility], is waiting on insurance approval, orders changed today to collagen powder and unna wrap, 1 week appt 03/28/23 better again, is scheduled for her first procedure with [facility], orders changed to compression sock instead of unna wrap, 1 week appt Subjective Pain Right Lower Leg: Pain Description: Intermittent and Pressure Pain Intensity: 0 Wound/Ulcer History When did wound start?: December 2022 Right leg ulcer Mode of Arrival/ Paediatric Surgeon: Personal vehicle Lives with:: Spouse Appetite Description: Within Normal Limits Who helps w/ dressing change?: Wound Care Dept Smoking Status: Never smoker [facility] Medical History (Updated 03/21/23 @ 09:33 by Viki Mcnulty APRN) Asthma Diabetes Leg edema, right Ulcer of right leg Social History Smoking Status: Never smoker Substance Use Type: Alcohol Substance Abuse Comment: ETOH RARELY. Grafts History of Graft History of Graft?: No Exam Physical Exam Vital Signs: Temp Pulse Resp BP O2 Del Method 97.7 F 74 20 152/83 H Room Air 03/28/23 08:47 03/28/23 08:47 03/28/23 08:47 03/28/23 08:47 03/28/23 08:47 Const General: cooperative, healthy appearing, comfortable and no acute distress Nutritional Appearance: obese Orientation: alert, awake and oriented x3 Lower/Upper Extremity Exam Vascular Exam-Edema Right Lower Extremity: Edema Type: Lymphedema Vascular Exam-Pulses Right Brachial: Pulse Assessment Method: NIBP Right Dorsalis Pedis: Pulse Assessment Method: Palpation Right Posterior Tibial: Pulse Assessment Method: Palpation Objective Meds/Allergies Home Medications albuterol sulfate 90 mcg/actuation aerosol inhaler 2 puff inhalation Q4H PRN Shortness Of Breath 06/15/18 [History Confirmed 03/21/23] buspirone 30 mg tablet 60 mg PO DAILY 06/15/18 [History Confirmed 03/21/23] fluoxetine 60 mg tablet 60 mg PO DAILY 06/15/18 [History Confirmed 03/21/23] fluticasone propionate 110 mcg/actuation HFA aerosol inhaler 2 puff inhalation BID 06/15/18 [History Confirmed 03/21/23] insulin glargine 100 unit/mL (3 mL) subcutaneous pen 30 units subcut DAILY 06/15/18 [History Confirmed 03/21/23] metformin 1,000 mg tablet 1,000 mg PO BID 06/15/18 [History Confirmed 03/21/23] witch haim 50 % topical pads (Preparation H (Witch Haim)) 1 pad topical BID PRN hemorrhoids #10 ea 03/19/21 [Rx Confirmed 03/21/23] empagliflozin 10 mg tablet (Jardiance) 10 mg PO DAILY 02/28/23 [History Confirmed 03/21/23] semaglutide 2 mg/dose (8 mg/3 mL) subcutaneous pen injector (Ozempic) 2 mg subcut QWEEK 02/28/23 [History Confirmed 03/21/23] Allergies Penicillins Allergy (Verified 03/19/21 06:09) Unknown Reaction Sulfa (Sulfonamide Antibiotics) Allergy (Verified 03/19/21 06:09) Unknown Reaction Wound/Ulcer Right Lower Anterior Leg: Type: Venous Stasis Ulcer Thickness: Skin Breakdown Bed Appearance: Glendo Percent of Wound Bed Granulated/Red: 100 Percent of Devitalized: 0 Length (cm): 0.1 Width (cm): 0.2 Depth (cm): 0.1 CM Sq: 0.020 Surrounding Tissue Appearance: Hyperpigmented Surrounding Tissue Temp: Warm Drainage Amount: Scant Drainage Description: Serous Drainage Odor: No Odor Results Height: 5 ft 7 in Weight: 117.934 kg Body Mass Index: 40.7 Assessment/Plan Assessment/Plan (1) Ulcer of right leg: Qualifiers: Non-pressure ulcer stage: limited to breakdown of skin Qualified Code(s): L97.911 - Non-pressure chronic ulcer of unspecified part of right lowerleg limited to breakdown of skin Code(s): L97.919 - Non-pressure chronic ulcer of unspecified part of right lower leg withunspecified severity Status: Chronic (2) Diabetes: Code(s): E11.9 - Type 2 diabetes mellitus without complications Status: Chronic (3) Leg edema, right: Code(s): R60.0 - Localized edema Status: Chronic (4) Hemosiderin pigmentation of lower extremity due to varicose veins: Code(s): L81.8 - Other specified disorders of pigmentation; I83.899 - Varicose veins of unspecified lower extremity with other complications Status: Chronic (5) Obesity: Code(s): E66.9 - Obesity, unspecified Status: Chronic (6) Hyperpigmentation: Assessment/Problem Details: ble Code(s): L81.9 - Disorder of pigmentation, unspecified Status: Chronic (7) Inflammation: Status: Chronic Time spent with patient Time Spent With Patient (min): 12 Dictated By: Viki Mcnulty APRN DD/ 0850 Signed By: <Electronically signed by ABRIL Mcnulty> 03/28/23 0853 [facility] Work Phone: [phone]) 326-107508-23-2023 Progress note Author Viki Mcnulty [facility] March 21, 2023 9:34am Note Date/Time March 21, 2023 9: 34am [facility] [address] [place] [address] Wound Center Provider Note Signed Patient: Mavis Pickard MR#: [id number] : 1960 Acct:[id number] Age/Sex: 62 / F Copies to: Jeffry/PreceptorRashadEvelia Mcnulty APRN~ HPI Date of Visit Date of Visit: Date of Service: 03/21/2023 Time of Service: 09:32 Narrative HPI: 02/28/23 Mavis is a 62-year-old female presenting to [facility] wound care program for an initial visit for evaluation and treatment of a right lower extremity ulceration that does appear to be venous stasis in nature. She was a patient here approximately 13 years ago and says that she has not really had anyissues except for the past few months when this area did decide to act up again. She has been followed by her primary care provider who has been keeping a closeeye on this area for her. We did decide to Escribe oral doxycycline for her just for 7 days because there may be a early cellulitis of the right lower extremity. We also chose to apply an Unna paste wrap and utilize topical Bactroban to the area. Supportive supplements were listed on her discharge paperwork such as a probiotic, collagen, vitamin C, and an anti-inflammatory diet. We discussed her seeing vascular and she has agreed to a referral to [facility] for her varicose veins- she had seen [facility] years ago and was told more or less that nothing could be done for the veins at that time. She does wear compression socks faithfully. 03/21/23 much improved, saw [facility], is waiting on insurance approval, orders changed today to collagen powder and unna wrap, 1 week appt Subjective Pain Right Lower Leg: Pain Description: Intermittent and Burning Pain Intensity: 0 Wound/Ulcer History When did wound start?: December 2022 Right leg ulcer Mode of Arrival/ Paediatric Surgeon: Personal vehicle Lives with:: Spouse Appetite Description: Within Normal Limits Who helps w/ dressing change?: Wound Care Dept Smoking Status: Never smoker [facility] Medical History (Updated 03/21/23 @ 09:33 by Viki Mcnulty APRN) Asthma Diabetes Leg edema, right Ulcer of right leg Social History Smoking Status: Never smoker Substance Use Type: Alcohol Substance Abuse Comment: ETOH RARELY. Grafts History of Graft History of Graft?: No Exam Physical Exam Vital Signs: Temp Pulse Resp BP O2 Del Method 98.2 F 81 20 133/78 Room Air 03/21/23 09:24 03/21/23 09:24 03/21/23 09:24 03/21/23 09:24 03/21/23 09:24 Const General: cooperative, healthy appearing, comfortable and no acute distress Nutritional Appearance: obese Orientation: alert, awake and oriented x3 Lower/Upper Extremity Exam Vascular Exam-Edema Right Lower Extremity: Edema Type: Lymphedema Vascular Exam-Pulses Right Dorsalis Pedis: Pulse Assessment Method: Palpation Right Posterior Tibial: Pulse Assessment Method: Palpation Left Brachial: Pulse Assessment Method: NIBP Objective Meds/Allergies Home Medications albuterol sulfate 90 mcg/actuation aerosol inhaler 2 puff inhalation Q4H PRN Shortness Of Breath 06/15/18 [History Confirmed 03/21/23] buspirone 30 mg tablet 60 mg PO DAILY 06/15/18 [History Confirmed 03/21/23] fluoxetine 60 mg tablet 60 mg PO DAILY 06/15/18 [History Confirmed 03/21/23] fluticasone propionate 110 mcg/actuation HFA aerosol inhaler 2 puff inhalation BID 06/15/18 [History Confirmed 03/21/23] insulin glargine 100 unit/mL (3 mL) subcutaneous pen 30 units subcut DAILY 06/15/18 [History Confirmed 03/21/23] metformin 1,000 mg tablet 1,000 mg PO BID 06/15/18 [History Confirmed 03/21/23] witch haim 50 % topical pads (Preparation H (Witch Haim)) 1 pad topical BID PRN hemorrhoids #10 ea 03/19/21 [Rx Confirmed 03/21/23] empagliflozin 10 mg tablet (Jardiance) 10 mg PO DAILY 02/28/23 [History Confirmed 03/21/23] semaglutide 2 mg/dose (8 mg/3 mL) subcutaneous pen injector (Ozempic) 2 mg subcut QWEEK 02/28/23 [History Confirmed 03/21/23] Allergies Penicillins Allergy (Verified 03/19/21 06:09) Unknown Reaction Sulfa (Sulfonamide Antibiotics) Allergy (Verified 03/19/21 06:09) Unknown Reaction Wound/Ulcer Right Lower Anterior Leg: Type: Venous Stasis Ulcer Thickness: Skin Breakdown Bed Appearance: Dried Exudate Percent of Wound Bed Granulated/Red: 0 Percent of Devitalized: 100 Length (cm): 0.5 Width (cm): 0.5 Depth (cm): 0.1 CM Sq: 0.250 Surrounding Tissue Appearance: Hyperpigmented Surrounding Tissue Temp: Warm Drainage Amount: Scant Drainage Description: Serous Drainage Odor: No Odor Procedures Time Out: 2 Patient Identifiers, Correct Patient, Correct Side/Site, Correct Procedure and Safety Issues Reviewed Procedure: The right leg ulcer was not anesthetized with topical 2% lidocaine gel. A forcep was used to perform debridement for the removal of 0.25 cm? of devitalized tissue consisting of skin and slough and dried exudate. Debridementwas down to healthy bleeding tissue. Estimated blood loss was very minimal. Hemostasis was achieved by applying pressure. The ulcer now appears 100% pink and red and the size remains the same. The patient tolerated well with no pain. Results Height: 5 ft 7 in Weight: 117.934 kg Body Mass Index: 40.7 Assessment/Plan Assessment/Plan (1) Ulcer of right leg: Qualifiers: Non-pressure ulcer stage: limited to breakdown of skin Qualified Code(s): L97.911 - Non-pressure chronic ulcer of unspecified part of right lowerleg limited to breakdown of skin Code(s): L97.919 - Non-pressure chronic ulcer of unspecified part of right lower leg withunspecified severity Status: Chronic (2) Diabetes: Code(s): E11.9 - Type 2 diabetes mellitus without complications Status: Chronic (3) Leg edema, right: Code(s): R60.0 - Localized edema Status: Chronic (4) Hemosiderin pigmentation of lower extremity due to varicose veins: Code(s): L81.8 - Other specified disorders of pigmentation; I83.899 - Varicose veins of unspecified lower extremity with other complications Status: Chronic (5) Obesity: Code(s): E66.9 - Obesity, unspecified Status: Chronic (6) Hyperpigmentation: Assessment/Problem Details: ble Code(s): L81.9 - Disorder of pigmentation, unspecified Status: Chronic (7) Inflammation: Status: Chronic (8) Cellulitis: Qualifiers: Site of cellulitis: extremity Site of cellulitis of extremity: lower extremity Laterality: right Qualified Code(s): L03.115 - Cellulitis of right lower limb Code(s): L03.90 - Cellulitis, unspecified Status: Resolved Time spent with patient Time Spent With Patient (min): 14 Dictated By: Viki Mcnulty APRN DD/ Signed By: <Electronically signed by ABRIL Mcnulty> 03/21/23 0934 [facility] Work Phone: 1(371) 574-990008-02-2023 Progress note Author Viki Mcnulty [facility] February 28, 2023 11:36am Note Date/Time February 28, 2023 11: 36am [facility] [address] [place] [address] Wound Center Provider Note Signed Patient: Mavis Pickard MR#: [id number] : 1960 Acct:[id number] Age/Sex: 62 / F Copies to: Jeffry/PreceptorRashad APRN~ HPI Date of Visit Date of Visit: Date of Service: 02/28/2023 Time of Service: 11:28 Narrative HPI: 02/28/23 Mavis is a 62-year-old female presenting to [facility] wound care program for an initial visit for evaluation and treatment of a right lower extremity ulceration that does appear to be venous stasis in nature. She was a patient here approximately 13 years ago and says that she has not really had anyissues except for the past few months when this area did decide to act up again. She has been followed by her primary care provider who has been keeping a closeeye on this area for her. We did decide to Escribe oral doxycycline for her just for 7 days because there may be a early cellulitis of the right lower extremity. We also chose to apply an Unna paste wrap and utilize topical Bactroban to the area. Supportive supplements were listed on her discharge paperwork such as a probiotic, collagen, vitamin C, and an anti-inflammatory diet. We discussed her seeing vascular and she has agreed to a referral to [facility] for her varicose veins- she had seen [facility] years ago and was told more or less that nothing could be done for the veins at that time. She does wear compression socks faithfully. Subjective Pain Right Lower Leg: Pain Description: Intermittent and Burning Wound/Ulcer History When did wound start?: December 2022 Right leg ulcer Mode of Arrival/ Paediatric Surgeon: Personal vehicle Lives with:: Spouse Appetite Description: Within Normal Limits Who helps w/ dressing change?: Wound Care Dept Smoking Status: Never smoker [facility] Medical History (Updated 02/28/23 @ 11:34 by Viki Mcnulty APRN) Asthma Diabetes Leg edema, right Ulcer of right leg Social History Smoking Status: Never smoker Substance Use Type: Alcohol Substance Abuse Comment: ETOH RARELY. Grafts History of Graft History of Graft?: No Exam Physical Exam Vital Signs: Temp Pulse Resp BP O2 Del Method 98.1 F 82 24 156/79 H Room Air 02/28/23 11:17 02/28/23 11:17 02/28/23 11:17 02/28/23 11:17 02/28/23 11:17 Const General: cooperative, healthy appearing, comfortable and no acute distress Nutritional Appearance: obese Orientation: alert, awake and oriented x3 Lower/Upper Extremity Exam Vascular Exam-Edema Right Lower Extremity: Edema Degree: 1+ Edema Type: Pitting Vascular Exam-Pulses Right Brachial: Pulse Assessment Method: NIBP Right Dorsalis Pedis: Pulse Assessment Method: Palpation Right Posterior Tibial: Pulse Assessment Method: Palpation Objective Meds/Allergies Home Medications albuterol sulfate 90 mcg/actuation aerosol inhaler 2 puff inhalation Q4H PRN Shortness Of Breath 06/15/18 [History Confirmed 02/28/23] buspirone 30 mg tablet 60 mg PO DAILY 06/15/18 [History Confirmed 02/28/23] fluoxetine 60 mg tablet 60 mg PO DAILY 06/15/18 [History Confirmed 02/28/23] fluticasone propionate 110 mcg/actuation HFA aerosol inhaler 2 puff inhalation BID 06/15/18 [History Confirmed 02/28/23] insulin glargine 100 unit/mL (3 mL) subcutaneous pen 30 units subcut DAILY 06/15/18 [History Confirmed 02/28/23] metformin 1,000 mg tablet 1,000 mg PO BID 06/15/18 [History Confirmed 02/28/23] witch haim 50 % topical pads (Preparation H (Witch Haim)) 1 pad topical BID PRN hemorrhoids #10 ea 03/19/21 [Rx Confirmed 02/28/23] doxycycline hyclate 100 mg capsule 100 mg PO BID 7 days #14 caps 02/28/23 [Rx] empagliflozin 10 mg tablet (Jardiance) 10 mg PO DAILY 02/28/23 [History Confirmed 02/28/23] semaglutide 2 mg/dose (8 mg/3 mL) subcutaneous pen injector (Ozempic) 2 mg subcut QWEEK 02/28/23 [History Confirmed 02/28/23] Allergies Penicillins Allergy (Verified 03/19/21 06:09) Unknown Reaction Sulfa (Sulfonamide Antibiotics) Allergy (Verified 03/19/21 06:09) Unknown Reaction Wound/Ulcer Right Lower Anterior Leg: Type: Venous Stasis Ulcer Thickness: Skin Breakdown Bed Appearance: Black Dry, Brown and Yellow Percent of Wound Bed Granulated/Red: 0 Percent of Devitalized: 100 Length (cm): 1 Width (cm): 1 Depth (cm): 0.1 CM Sq: 1.000 Surrounding Tissue Appearance: Glendo and Hyperpigmented Surrounding Tissue Temp: Warm Drainage Amount: Scant Drainage Description: Serous Drainage Odor: No Odor Results Height: 5 ft 7 in Weight: 117.934 kg Body Mass Index: 40.7 Assessment/Plan Assessment/Plan (1) Ulcer of right leg: Qualifiers: Non-pressure ulcer stage: limited to breakdown of skin Qualified Code(s): L97.911 - Non-pressure chronic ulcer of unspecified part of right lowerleg limited to breakdown of skin Code(s): L97.919 - Non-pressure chronic ulcer of unspecified part of right lower leg withunspecified severity Status: Chronic (2) Cellulitis: Qualifiers: Site of cellulitis: extremity Site of cellulitis of extremity: lower extremity Laterality: right Qualified Code(s): L03.115 - Cellulitis of right lower limb Code(s): L03.90 - Cellulitis, unspecified Status: Suspected (3) Diabetes: Code(s): E11.9 - Type 2 diabetes mellitus without complications Status: Chronic (4) Leg edema, right: Code(s): R60.0 - Localized edema Status: Chronic (5) Hemosiderin pigmentation of lower extremity due to varicose veins: Code(s): L81.8 - Other specified disorders of pigmentation; I83.899 - Varicose veins of unspecified lower extremity with other complications Status: Chronic (6) Obesity: Code(s): E66.9 - Obesity, unspecified Status: Chronic (7) Hyperpigmentation: Assessment/Problem Details: ble Code(s): L81.9 - Disorder of pigmentation, unspecified Status: Chronic (8) Inflammation: Status: Chronic Time spent with patient Time Spent With Patient (min): 15 Dictated By: Viki Mcnulty APRN DD/ 1128 Signed By: <Electronically signed by ABRIL Mcnulty> 02/28/23 1136 [facility] Work Phone: [phone]) [phone] Evaluation note* Encounter Date Diagnosis Assessment Notes Treatment Notes Treatment Clinical Notes Jan, Wound of skin (ICD-10 - T14.8XXA) Refer to wound center, I think she will need debridement and specialized wound care for this to fully resolve. Continue with controlling edema by leg elevation and wearing compression stockings, continue with good glycemic control as she is already doing. Jan, Dysfunction of right eustachian tube (ICD-10 - H69.91) Exam is fairly benign, I advised trial of fluticasone nasal spray and see if that helps [facility] Other 07-13-2023 Evaluation note* Encounter Date Diagnosis Assessment Notes Treatment Notes Treatment Clinical Notes Jan, Type 2 diabetes mellitus without complications (ICD-10 - E11.9) I commended her on her improved glycemic control. I am concerned about the episodes of hypoglycemia, so I asked her to lower the Lantus down to 30 units daily and see how she does. If hypoglycemia persists, we may need to lower the insulin dose down further. Continue other meds for now. Recheck in 3 to 4 months for diabetes recheck and annual wellness visit Jan, 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 (ICD-10 - I83.018) The varicose veins are leading to leg edema, I agree with compression stockings as she is doing. She is trying to get [facility] paperwork completed so that she does not have to work mandated overtime, as this seems to be exacerbating the leg swelling. I am happy to support this. Elevate feet when possible Jan, Non-pressure chronic ulcer of other part of right lower leg limited to breakdown of skin (ICD-10 - L97.811) Local wound care reviewed, I am hopeful that with continuing the compression stockings and treating the underlying edema, coupled with less time on her feet at work, the ulcer will resolve. If it persists, she may need to return to the wound clinic for this. Hold off on that for now Jan, Unspecified asthma, uncomplicated (ICD-10 - J45.909) Currently quiet, warning signs reviewed, call me in the future if problems arise [facility] Other 03-20-2023 Evaluation note* Encounter Date Diagnosis Assessment Notes Treatment Notes Treatment Clinical Notes Sep, Type 2 diabetes mellitus without complications (ICD-10 - E11.9) Clinically very pleased with her improved glycemic control and I commended her on this. We will continue to taper back her Lantus, cut down to 40 units once daily. I anticipate that we will need to titrate this down further. She will continue to monitor for hypoglycemia and let me know if this is occurring. She would like to go up on the Ozempic, so increase dose to 2 mg weekly. Recheck in 3 months with another A1c, sooner if problems Sep, Depression with anxiety (ICD-10 - F41.8) Mood is improved, continue present meds Sep, Dupuytrens contracture (ICD-10 - M72.0) We discussed Dupuytren's contractures, she is asymptomatic. Observe for now, warning signs reviewed. Call if problems [facility] Other 01-16-2023 Evaluation note* Encounter Date Diagnosis Assessment Notes Treatment Notes Treatment Clinical Notes Jul, Type 2 diabetes mellitus without complications (ICD-10 - E11.9) Increase the Ozempic up to 1 mg daily. We again reviewed potential medication side effects, call should these occur. Watch for hypoglycemia, warning signs of this are reviewed. Should it occur, we will titrate down her Lantus. We talked at length regarding lifestyle treatment including healthy food choices, smaller, frequent meals and avoidance of skipping meals, and regular exercise. I commended her on the weight loss. Recheck in 2 months, sooner if problems [facility] Other 01-10-2023 Evaluation note* Encounter Date Diagnosis Assessment Notes Treatment Notes Treatment Clinical Notes Jul, Type 2 diabetes mellitus without complications (ICD-10 - E11.9) [facility] Other 11-28-2022 Evaluation note* Encounter Date Diagnosis Assessment Notes Treatment Notes Treatment Clinical Notes May, Type 2 diabetes mellitus without complications (ICD-10 - E11.9) We talked at length about her diabetes treatment regimen. She is tolerating the Ozempic so far, so increase the dose up to 0.5 mg daily. Continue Jardiance and other diabetes meds. We again reviewed potential side effects. We talked at length about her lifestyle treatment, including blood sugar targets both fasting and postprandial. It sounds like she is eating a fair amount of fruit, we discussed this could be contributing to her postprandial spikes. I encouraged her to keep a log of her food intake and correlate this with her blood sugar readings, she will try and identify which foods are worsening her blood sugar control. Encouraged regular exercise as noted above. We reviewed target exercises 150 minutes weekly, she thinks she can commit to 90 minutes weekly for now. Keep working on weight loss. [facility] Other 11-04-2022 Evaluation note* Encounter Date Diagnosis Assessment Notes Treatment Notes Treatment Clinical Notes May, Type 2 diabetes mellitus without complications (ICD-10 - E11.9) [facility] Other 10-24-2022 Evaluation note* Encounter Date Diagnosis Assessment Notes Treatment Notes Treatment Clinical Notes Apr, Type 2 diabetes mellitus without complications (ICD-10 - E11.9) We talked at length about treatment options for the diabetes. I agree that Ozempic has the potential to improve glycemic control and help her lose weight, which is of critical importance. She understands that she might experience recurrent GI side effects, she would like to try the Rx again anyways. I restarted her at Ozempic 0.25 mg weekly. Stay on the metformin and Jardiance, but stop the Januvia. Check sugars regularly at home, I asked her to check sugars when fasting and Premeal, write these down a we will review at follow-up in 4 weeks Apr, Obesity, morbid, BMI 40.0-49.9 (ICD-10 - E66.01) Apr, Depression with anxiety (ICD-10 - F41.8) We reviewed treatment options, she is not interested in medication change at this time. Continue present Rx, keep seeing the counselor. [facility] Other 08-29-2022 Evaluation note* Encounter Date Diagnosis Assessment Notes Treatment Notes Treatment Clinical Notes Feb, Type 2 diabetes mellitus without complications (ICD-10 - E11.9) We talked about options of her diabetes, I would like to improve her glycemic control without increasing her Lantus if possible. Stay on the metformin, agree with the Januvia, and add Jardiance 10 mg daily. She will follow sugars closely at home over the next month, and recheck with me. Potential side effects reviewed, call if she is getting polyuria or UTI symptoms Feb, Depression with anxiety (ICD-10 - F41.8) We agreed not to change her depression meds at this time, with the recent changes in her diabetes meds I did not want to do too many things all at once. Consider trial of different SSRI or SNRI in the future, reassess at next visit. Continue seeing the counselor [facility] Other 08-04-2022 Evaluation note* Encounter Date Diagnosis Assessment Notes Treatment Notes Treatment Clinical Notes Feb, Type 2 diabetes mellitus without complications (ICD-10 - E11.9) Glycemic control is suboptimal. She has lost some weight, which is beneficial. I am concerned that the Ozempic may be causing her symptoms and would like her to hold the Rx for the next 3 weeks, then recheck to reassess her symptoms. Feb, Nausea and vomiting, unspecified vomiting type (ICD-10 - R11.2) We will observe response with her holding the Ozempic. If symptoms persist, consider further work-up Feb, Vertigo (ICD-10 - R42) Dickson-Hallpike maneuver in the office today is negative. Nevertheless, symptoms are most suspicious for benign positional vertigo. I gave her information regarding Nicholas maneuvers which she can do herself at home Feb, Dysthymic disorder (ICD-10 - F34.1) Stay on current meds, reassess this at next visit. I strongly encouraged her to get back in touch with her counselor, she says she will arrange this on her own. She readily admits she is working extremely long hours at her job, more than she has to, and that seems to be negatively impacting her quality of life. She is going to reassess whether she wants to continue doing this in the long run or not. [facility] Other 06-22-2022 Evaluation note* Encounter Date Diagnosis Assessment Notes Treatment Notes Treatment Clinical Notes Dec, Type 2 diabetes mellitus without complications (ICD-10 - E11.9) [facility] Other 10-20-2021 Evaluation note* Encounter Date Diagnosis Assessment Notes Treatment Notes Treatment Clinical Notes Apr, Type 2 diabetes mellitus without complications (ICD-10 - E11.9) [facility] Other Evaluation noteNo InformationN[employer]Tele[employer] Other Evaluation noteNo assessment information available [facility] Work Phone: Evaluation noteNortTeleFix [employer] Other Evaluation note* Diagnosis Onset Date Resolution Status Diabetes chronic 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 Carolina 2019 Hospitalization History SEE ABOVE [facility] Other [facility] general Narrative - Reported* Type Description Date Medical History diabetes mellitus Medical History asthma Medical History Depression Surgical History knee arthroscopy Surgical History rt ring finger amputation Surgical History BREAST BIOPSY RIGHT Surgical History RIGHT KNEE REPLACEMENT 06/2018 Surgical History colonoscopy - Dr. Carolina 2015 Hospitalization History SEE ABOVE [facility] Other [facility] general Narrative - [email or web address] Other [employer] general Narrative - [email or web address] Other Summary Purpose Family History No Family History Records FoundNo Family History Records FoundNo Family History Records FoundNo Family History Records Found Advance Directives No Advanced Directives Records Found Advance Directive Response Recorded Date/ Time Advance Directives No June 06, 2017 10:41am Hospital Course Note ADMITTING DIAGNOSIS:Severe d egenerative joint disease, right kneeFINAL DIAGNOSIS:Severe degenerative joint disease, right kneeCONSULTATIONS: Hospitalist service.COMPLICATIONS: NonePROCEDURES PERFORMED: Right total knee arthroplasty.INDICATION FOR ADMISSION: This is a 58 year old female with advanceddegenerative change in the right knee with bone on bone joint space losswhich has failed to improve and respond with outpatient conservativemanagement. Please refer to the admitting history and physical for furtherdetails.HOSPITALIZATION COURSE: On the day of admission, the patient was taken tothe Operating Room where the total knee arthroplasty was performed withoutdifficulty. Please refer to the operative record for further details.Postoperatively, the course of hospitalization was satisfactory andotherwise unremarkable. Physical therapy was begun on the firstpostoperative day and the patient progressed well. The Aquacel dressing isdry and intact without progressive drainage. Thigh and jadon (more content not included)... 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 Contributing factors include DM, vascular birthmark and varicose veins Diagnosis 1 Wound of skin (T14.8 XXA) Referral Organization [facility] Family Rebekah Rabago Referring Provider First Name Rashad Referring Provider Last Name Mast Referring Provider Specialty Family Prac sobeida Referred Organization Unknown Facility Referred Provider Specialty Wound Care Referral Priority Routine General Notes Stephie Carmichael 02:18:41 PM >this is order not referral. spoke with clinical staff, she is faxing wound care order over. Closed Additional Source Comments INFORMATION SOURCE (unrecogn ized section and content) DATE CREATED AUTHOR 01/22/2018 [facility] DATE CREATED AUTHOR AUTHOR'S ORGANIZ ATION 07/27/2018 [facility] DATE CREATED AUTHOR AUTHOR'S ORGANIZ ATION 06/13/2023 [facility] DATE CREATED AUTHOR AUTHOR'S ORGANIZ ATION 06/19/2023 [facility] EPIC REASON FOR VISIT (unrecogniz ed section and content) Refill/ MetforminRefillNS/CA NCELLED APPTQuestion about booster vacc.refillRefill/LantusRefill7 MTH FOLLOW UPRefill/ Lantus3 week follow up1 month Follow upRefill/ Metformin1 month Follow upRefill/ lancets1 month Follow upnausea2 month Follow uplow BSRefill/ InhalerRefill/ Zofran3 month follow up/ sore on left legrt leg woundRefill/ZofranAWVAsthma flare [facility] Care Teams (unrecognized sec tion and content) Team Status: Active Member Role Status Dates Rashad Mast , DO Primary Care Provider Active Team Status: Inactive Member Role Status Dates Rashad Mast , DO Primary Care Provider Active Baltazar Visci , DO Attending Provider Active Team Status: Inactive Member Role Status Dates Rashad Mast , DO Primary Care Provider Active Rashad Mast , DO Attending Provider Active Team Status: Inactive Member Role Status Dates Rashad Mast , DO Primary Care Provider Active Viki Mcnulty , PROOF PRESS OPERATOR Attending Provider Active Team Status: Inactive Member Role Status Dates Rashad Mast , DO Primary Care Provider Active Rashad Pendleton , DO Emergency Provider Active Goals (unrecognized section and content) Goals may be documented in a n alternate section FOR RECORDS PERTAINING TO PATIENTS WHO ARE OR HAVE BEEN ENROLLED IN A CHEMICAL DEPENDENCY/SUBSTANCEABUSE PROGRAM, SOME INFORMATION MAY BE OMITTED. This clinical summary was aggregated from multiple sources. Caution should be exercised in using it in the provision of clinical care. This summary normalizes information from multiple sources, and as a consequence, information in this document may materially change the coding, format and clinical context of patient data. In addition, data may be omitted in some cases. CLINICAL DECISIONS SHOULD BE BASED ON THE PRIMARY CLINICAL RECORDS. [facility]. provides no warranty or guarantee of the accuracy or completeness of information in this document.
== END 2023-08-08 09:52 | disposition home or self-care (01) ==
LOC: VC 09:51
PROVIDERS: PCP Radiology Diagnostic Radiology; Visit Provider Radiology Diagnostic Radiology
DX: I83.813 Varicose veins of bilateral lower extremities with pain (principal)
CPT/HCPCS: 36466

== ENCOUNTER 2023-08-16 09:47 | Outpatient (OUT) | payer BC, SELFPAY ==
--- NOTE | 2023-08-16 09:51 | VEIN_ITS ---
Patient Name: MAVIS PICKARD MR#: [id number] : 1960 Exam Date: 08/16/2023 Ordering Doctor: DR MAGEN PRICE M.D. RADIOLOGY REPORT PROCEDURE: [facility] - OFFICE VISIT FOLLOW UP COMPARISON: [facility] EST [facility], 08/03/2023. [facility] EST [facility], 07/16/2023. PROGRESS NOTES: The patient reports no significant problems following micro foam chemical ablation of the left leg. The patient has worn a compression stocking. The patient did not require oral analgesics. Physical exam demonstrates scattered thrombosed varicose veins on the left leg. No erythema or warmth to suggest cellulitis or thrombophlebitis. No ulceration. Review of the ultrasound performed the same day demonstrates occlusive thrombus extending throughout the treated left leg varicose veins. No residual left leg varicose veins remain period right leg varicose veins are observed. The patient expressed a desire to proceed with treatment of incompetent right leg varicose veins with micro foam chemical ablation. VEIN/[facility] EST LMTD IMPRESSION: 1. Successful ablation of varicose veins. 2. Persistent incompetent right leg varicose veins. PLAN: Micro foam chemical ablation right leg incompetent varicose veins Nurse notes, history and physical were reviewed and confirmed, see attached forms. The nurse was present throughout the physical exam and consultation Dictated by: Magen Price MD on 08/16/2023 at 10:37 Approved by: Magen Price MD on 08/16/2023 at 11:08
--- NOTE | 2023-08-16 09:51 | VEIN_ITS ---
Patient Name: MAVIS PICKARD MR#: [id number] : 1960 Exam Date: 08/16/2023 Ordering Doctor: DR MAGEN PRICE M.D. RADIOLOGY REPORT PROCEDURE: VC EXT VENOUS LT LIMITED COMPARISON: VC EXT VENOUS LT LIMITED, 07/16/2023. VC EXT VENOUS LT LIMITED, 04/30/2023. INDICATIONS: Phlebitis of superficial vein of rt lower extremity I80.01 TECHNIQUE: Lower extremity tsang scale and Duplex Doppler evaluation of the deep venous system from the inguinal ligament through the calf veins. FINDINGS: REGION: Left lower extremity. THROMBI: Negative for DVT. Varithena induced thrombus visualized at mid/med calf and mid/ant thigh. COMPRESSIBILITY: Non-compressible segments corresponding to thrombus FLOW: Areas of no flow corresponding to thrombus OTHER: No patent varicose veins remain. CONCLUSION: Post ablation occlusion of treated left leg incompetent varicose veins. No residual left leg incompetent varicose veins remain Dictated by: Magen Price MD on 08/16/2023 at 10:36 Approved by: Magen Price MD on 08/16/2023 at 10:37
--- OUTSIDE RECORDS SUMMARY | 2023-08-16 09:52 | XMS_ITS | CCD ---
Author Name Unknown Address [address] [place] [address] Organization [facility] Care Team Providers Care Commodities Requirements Analyst Name Role Phone HIGHLANDER, PETER Unavailable Unavailable HIGHLANDER, PETER Unavailable Unavailable WEST, JEFFREY V Unavailable Unavailable HIGHLANDER, PETER Unavailable Unavailable [...] PETER Unavailable Unavailable HIGHLANDER, PETER Unavailable Unavailable WEST, JEFFREY V Unavailable Unavailable ADEFEYISAN, MARNIE Unavailable Unavailable HIGHLANDER, PETER Unavailable Unavailable MAST, RASHAD Unavailable Unavailable SANTO QUESADA Unavailable Unavailable JUAN DELA CRUZ, MAX S Unavailable Unavailable SOLA SEALS Unavailable Unavailable [...] Care Provider DO Baltazar Strange Attending Provider Mast, DO Rashad Primary Care Provider Mast, DO Rashad Attending Provider [phone] Mast, DO Rashad Primary Care Provider [phone] [place] ABRIL Drew Attending Provider [phone] Pendleton, DO Rashad Emergency Provider Viki Mcnulty Admitting Unavailable Copdc, Viki Attending Unavailable Mast, Rashad Primary Care Unavailable [...] Translations: [penicillin] Drug Allergy 04-18-19 UNKNOWN [facility] (1 source) Sulfonamides (Antibiotic) Drug allergy (disorder) 04-18-19 UNKNOWN [facility] (1 source) Sulfamethoxazole; Translations: [sulfamethoxazole ] Drug Allergy [facility] (20 sources) Penicillin V Drug Allergy Unknown [facility] Other (10 sources) sulfaSALAzine Drug Allergy Unknown [facility] Other (3 sources) Sulfonamide Drug allergy Unknown [facility] Other (17 sources) Substance with sulfonamide structure and antibacterial mechanism of action (substance) Drug allergy Unknown [facility] Other (5 sources) Penicillins; Translations: [Penicillins] Allergy to substance 03-19-20 Unknown Reaction [facility] (5 sources) Sulfonamides (Antibiotic); Translations: [Sulfa (Sulfonamide Antibiotics)] Allergy to substance 03-19-20 Unknown Reaction [facility] Medications Current Medications Medication Drug Class(es) Dates [...] mg Subcutaneous once a week Sep, Active [id number] 200 actuat albuterol 0.09 mg/actuat metered dose [...] Hyclate Active 100 MG PO Twice daily 18 05June 033 12:00am Start: 02-28-2023 End: 03-21-2023 take 100 [...] package directions ondansetron 4 mg oral tablet (15 sources) Serotonin-3 Receptor Antagonist take 1 tablet by mouth once daily Zofran ODT 4 MG 1 tablet on the tongue and allow to dissolve Orally Once a day for 30 days Active MocavoToBALALIKEA Ultra - (1 source) Turbocoating Ultra - USE DIRECTED TO TEST BLOOD SUGAR ONCE DAILY for 90 Active OneTouch Ultra 2 w/Device (9 sources) OneToBALALIKEA Ultra 2 w/Device TEST ONCE DAILY for 30 Active ozempic (2 mg/dose) 8 mg/3ml solution pen-injector (1 source) Start: 10-16-2022 inject 2 mg by subcutaneous injection every week Ozempic (2 MG/DOSE) 8 MG/3ML 2 mg Subcutaneous once a week Sep, Active ProAir HFA 108 (90 Base) MCG/ACT (18 sources) ProAir HFA 108 ( 90 Base) [...] 05-02-2015 Start: 05-02-2015 Toradol per 15 mg 04 Apr, 2015 60 mg Ozempic (0.25 or 0.5 MG/DOSE ) 2 MG/1.5ML (5 sources) Ozempic (0.25 or 0.5 MG/DOSE) 2 MG/1.5ML 0.5 mg Subcutaneous once a week Not-Taking/PRN Ozempic (0.25 or 0.5 MG/DOSE) 2 MG/1.5ML 0.5 mg Subcutaneous once a week Not-Taking Ozempic (1 MG/DOSE) 2 MG/1.5 ML (11 sources) Start: 06-13-2021 Ozempic (1 MG/ DOSE) 2 MG/1.5ML 1 mg Subcutaneous weekly May, Not-Taking Start: 06-13-2021 Ozempic (1 MG/ DOSE) 2 MG/1.5ML 1 mg Subcutaneous weekly May, Active predniSONE 20 mg oral tablet (8 sources) Start: 05-29-2023 take 2 tablets by mouth every twenty-four hours predniSONE 20 MG 2 tablet Orally Once a day for 5 days Apr, Not-Taking/PRN Start: 06-15-2018 End: 02-28-2023 take 40 mg by mouth once daily Prednisone Discontinued 40 MG PO Daily June 15, 2018 1:00am [...] chronic] 06-03-2023 Episodic Chronic ulcer of skin (14 sources) Chronic ulcer of skin of lower [...] cervical region Episodic Other connective tissue disease (15 sources) Dupuytren's contracture; Translations: [Palmar fascial fibromatosis [Dupuytren]] Episodic Other connective tissue disease (2 sources) Palmar fascial fibromatosis [Dupuytren] Episodic Other injuries and conditions due to external causes (1 source) Other injury of unspecified body region, initial encounter Episodic Other lower respiratory disease (1 source) Shortness of breath; Translations: [Shortness of breath] Onset: 3 Episodic Other nervous system disorders (3 sources) Paresthesia of hand ; Translations: [Paresthesia of skin] Episodic Other nervous system disorders (1 source) Paresthesia of skin Episodic Other nutritional; endocrine; and metabolic disorders (20 sources) Body mass index 40+ - severely [...] Onset: 3 Varicose veins of lower extremity (10 sources) Varicose veins of right lower extremity [...] B (Bld) [Mass/Vol] 26.0 pg/mL Normal 5-100 [facility] Comment on above: Result Comment: PERF ORMED BY: [facility] [address] [place] [address] PATHOLOGIST SUBSTANCE ABUSE SERVICES DIRECTOR MARTINEZ GARZA M.D. Performed By: #### L IPID, CBC, URMACRERAT, CMP #### [facility] [address] COVID-19 / Flu A/B / RSV [...] or Cepheid Disclaimer revoked sooner. PERFORMED BY: [place] [address] PATHOLOGIST SUBSTANCE ABUSE SERVICES DIRECTOR MARTINEZ GARZA M.D. Normal [facility] Comment on above: Performed By: #### C EPHEID NEG, COVID19 FLU RSV #### [facility] [address] [place] [address] Cepheid COVID PCR Negativeon 06-03-2023 SARS-CoV-2 (COVID-19) RNA ROSA+probe Ql (Unsp spec) Negative Normal Negative [facility] Comment on above: Result Comment: This is a duplicate [employer]ep[employer] Xpert Xpress CoV-2/Flu/RSV Plus RNA by RT-PCR result to be used for statistical tracking purpose only. PERFORMED BY: [place] [phone] PATHOLOGIST SUBSTANCE ABUSE SERVICES DIRECTOR MARTINEZ GARZA M.D. Performed By: #### C EPHEID NEG, COVID19 FLU RSV #### [facility] [address] [place] [address] Complete Blood Count Auto Di ffon 06-03-2023 Basophils (Bld) [#/Vol] 0.0 10*3/uL Normal 0.0-0.2 [facility] Comment on above: Result Comment: PERF ORMED BY: [place] [phone] PATHOLOGIST SUBSTANCE ABUSE SERVICES DIRECTOR MARTINEZ GARZA M.D. Performed By: #### L IPID, CBC, URMACRERAT, CMP #### [facility] [address] [place] [address] Basophils/100 WBC (Bld) 0.3 % Normal . [facility] Comment on above: Performed By: #### L IPID, CBC, URMACRERAT, CMP #### [address] Eosinophils (Bld) [#/Vol] 0.2 10*3/uL Normal 0.0-0.45 [facility] Comment on above: Performed By: #### L IPID, CBC, URMACRERAT, CMP #### [address] Eosinophils/100 WBC (Bld) 2.8 % Normal . [facility] Comment on above: Performed By: #### L IPID, CBC, URMACRERAT, CMP #### [address] Erythrocyte distribution width (RBC) [Ratio] 14.6 % Normal 11.9-15.3 [facility] Comment on above: Performed By: #### L IPID, CBC, URMACRERAT, CMP #### [address] Hematocrit (Bld) [Volume fraction] 36.2 % Normal 34.0-46.4 [facility] Comment on above: Performed By: #### L IPID, CBC, URMACRERAT, CMP #### [address] Hemoglobin (Bld) [Mass/Vol] 12.6 g/dL Normal 11.8-15.4 [facility] Comment on above: Performed By: #### L IPID, CBC, URMACRERAT, CMP #### [place] [address] [place] Lymphocytes (Bld) [#/Vol] 3.3 10*3/uL Normal 1.00-4.8 [facility] Comment on above: Performed By: #### L IPID, CBC, URMACRERAT, CMP #### [place] [address] [place] Lymphocytes/100 WBC (Bld) 42.3 % Normal . [facility] Comment on above: Performed By: #### L IPID, CBC, URMACRERAT, CMP #### [address] MCH (RBC) [Entitic mass] 29.9 pg Normal 24.7-34.3 [facility] Comment on above: Performed By: #### L IPID, CBC, URMACRERAT, CMP #### [address] MCV (RBC) [Entitic vol] 85.9 fL Normal 80-100 [facility] Comment on above: Performed By: #### L IPID, CBC, URMACRERAT, CMP #### [address] Mean Corpuscular HGB Conc 34.8 g/dL Normal 32.0-35.0 [facility] Comment on above: Performed By: #### L IPID, CBC, URMACRERAT, CMP #### [address] Monocytes (Bld) [#/Vol] 0.6 10*3/uL Normal 0.0-0.8 [facility] Comment on above: Performed By: #### L IPID, CBC, URMACRERAT, CMP #### [address] Monocytes/100 WBC (Bld) 18.99 % Normal 0.00-20.00 [facility] Comment on above: Performed By: #### L IPID, CBC, URMACRERAT, CMP #### [place] [address] [place] Monocytes/100 WBC (Bld) 8.3 % Normal . [facility] Comment on above: Performed By: #### L IPID, CBC, URMACRERAT, CMP #### [address] Neutrophils (Bld) [#/Vol] 3.6 10*3/uL Normal 1.8-7.7 [facility] Comment on above: Performed By: #### L IPID, CBC, URMACRERAT, CMP #### [address] Neutrophils/100 WBC (Bld) 46.3 % Normal . [facility] Comment on above: Performed By: #### L IPID, CBC, URMACRERAT, CMP #### [address] NRBC% 0.2 /100{WBC} Normal 0-0.5 [facility] Comment on above: Performed By: #### L IPID, CBC, URMACRERAT, CMP #### [address] Platelet mean volume (Bld) [Entitic vol] 8.4 fL Normal 6.3-10.7 [facility] Comment on above: Performed By: #### L IPID, CBC, URMACRERAT, CMP #### [address] Platelets (Bld) [#/Vol] 303 10*3/uL Normal 150-450 [facility] Comment on above: Performed By: #### L IPID, CBC, URMACRERAT, CMP #### [address] RBC (Bld) [#/Vol] 4.21 10*6/uL Normal 3.60-5.00 [facility] Comment on above: Performed By: #### L IPID, CBC, URMACRERAT, CMP #### [address] WBC (Bld) [#/Vol] 7.7 10*3/uL Normal 3.8-11.6 [facility] Comment on above: Performed By: #### L IPID, CBC, URMACRERAT, CMP #### [address] Comprehensive Metabolic Pane tino 06-03-2023 Albumin [Mass/Vol] 4.0 g/dL Normal 3.5-5.7 [facility] Comment on above: Performed By: #### L IPID, CBC, URMACRERAT, CMP #### [address] Albumin/Globulin [Mass ratio] 1.5 {ratio} Normal [facility] Comment on above: Performed By: #### L IPID, CBC, URMACRERAT, CMP #### [address] ALP [Catalytic activity/Vol] 72 U/L Normal 34-104 [facility] Comment on above: Performed By: #### L IPID, CBC, URMACRERAT, CMP #### [address] ALT [Catalytic activity/Vol] 16 U/L Normal 7-52 [facility] Comment on above: Performed By: #### L IPID, CBC, URMACRERAT, CMP #### [address] Anion gap [Moles/Vol] Not performed Normal 6.0-15.0 [facility] Comment on above: Performed By: #### L IPID, CBC, URMACRERAT, CMP #### [address] AST [Catalytic activity/Vol] 20 U/L Normal 13-39 [facility] Comment on above: Performed By: #### L IPID, CBC, URMACRERAT, CMP #### [place] [address] [place] Bilirubin [Mass/Vol] 0.3 mg/dL Normal 0.3-1.0 [facility] Comment on above: Performed By: #### L IPID, CBC, URMACRERAT, CMP #### [address] Calcium [Mass/Vol] 9.1 mg/dL Normal 8.6-10.3 [facility] Comment on above: Performed By: #### L IPID, CBC, URMACRERAT, CMP #### [facility] [address] Chloride [Moles/Vol] 105 mmol/L Normal 98-107 [facility] Comment on above: Performed By: #### L IPID, CBC, URMACRERAT, CMP #### [address] CO2 [Moles/Vol] 26.7 mmol/L Normal 21.0-31.0 [facility] Comment on above: Performed By: #### L IPID, CBC, URMACRERAT, CMP #### [address] Creatinine [Mass/Vol] 0.72 mg/dL Normal 0.60-1.20 [facility] Comment on above: Performed By: #### L IPID, CBC, URMACRERAT, CMP #### [address] Creatinine Clr Calc Pharmacy 108.28 [facility] Comment on above: Result Comment: PERF ORMED BY: [place] [address] PATHOLOGIST SUBSTANCE ABUSE SERVICES DIRECTOR MARTINEZ GARZA M.D. Performed By: #### L IPID, CBC, URMACRERAT, CMP #### [address] GFR/1.73 sq M.predicted MDRD (S/P/Bld) [Vol rate/Area] mL/min/{1.73_m2} [facility] Comment on above: Performed By: #### L IPID, CBC, URMACRERAT, CMP #### [address] Globulin (S) [Mass/Vol] 2.6 g/dL [facility] Comment on above: Performed By: #### L IPID, CBC, URMACRERAT, CMP #### [address] Glucose [Mass/Vol] 198 mg/dL High 70-100 [facility] Comment on above: Result Comment: [facility] Glucose Reference Range is dependent on time and content of last meal. Glucose of more than 200 mg/dL in a nonstressed, ambulatory subject supports the diagnosis of Diabetes Mellitus. ADA recommended reference range Performed By: #### L IPID, CBC, URMACRERAT, CMP #### [facility] [address] Potassium Normal 3.5-5.1 [facility] Comment on above: Result Comment: Spec imen hemolyzed, redraw requested Performed By: #### L IPID, CBC, URMACRERAT, CMP #### [address] Protein [Mass/Vol] 6.6 g/dL Normal 6.4-8.9 [facility] Comment on above: Performed By: #### L IPID, CBC, URMACRERAT, CMP #### [address] Sodium [Moles/Vol] 132 mmol/L Low 136-145 [facility] Comment on above: Performed By: #### L IPID, CBC, URMACRERAT, CMP #### [address] Urea nitrogen [Mass/Vol] 21 mg/dL Normal 7-25 [facility] Comment on above: Performed By: #### L IPID, CBC, URMACRERAT, CMP #### [facility] [address] [place] [id number] [place] Creatine Kinaseon 06-03-2023 CK [Catalytic activity/Vol] 50 U/L Normal 30-223 [facility] Comment on above: Performed By: #### L IPID, CBC, URMACRERAT, CMP #### [address] ECG 12 lead ECGon 06-03-2023 ECG 12 lead ECG [facility] [place] [address] [place] [address] Electrocardiograph Report Signed Patient: Mavis Pickard MR#: [id number] : 1960 Acct:[id number] Age/Sex: 63 / F ADM Date: 06/02/23 Loc: ER Room: Type: [facility] ER Attending Dr: Ordering Provider: Rashad Pendleton [...] Signed By Winston Moe MD 2116 Normal [facility] Redraw Potassiumon 3 Potassium [Moles/Vol] 3.9 mmol/L Normal 3.5-5.1 [facility] Comment on above: Result Comment: PERF ORMED BY: [place] [address] PATHOLOGIST SUBSTANCE ABUSE SERVICES DIRECTOR MARTINEZ GARZA M.D. Performed By: #### R EDW K #### [facility] [address] [place], [place] [id number] [facility] Troponin I High Sensitivityo n 06-03-2023 Troponin I High Sensitivity 4.2 pg/mL Normal 0.0-15.0 [facility] Comment on above: Result Comment: PERF ORMED BY: [place] [address] PATHOLOGIST SUBSTANCE ABUSE SERVICES DIRECTOR MARTINEZ GARZA M.D. Performed By: #### L IPID, CBC, URMACRERAT, CMP #### [facility] [address] [place] [address] [facility] XR chest 2V*on 06-03-2023 XR chest 2V* [facility] [place] [address] [place] [address] XRay Report Signed Patient: Mavis Pickard MR#: [id number] : 1960 Acct:[id number] Age/Sex: 63 / F ADM Date: 06/02/23 Loc: ER Room: Type: [facility] ER Attending Dr: Copies to: Rashad Pendleton DO Ordering Provider: Rashad Pendleton DO Date of Service: 06/02/23 XR/XR chest [...] Holden Herrmann M.D.06/03/2023 9:48 AM Dictation Location: [place] [address] Transcribed By: [facility] 06/03/23947 Dictated By: Holden Herrmann II, MD 06/03/23946 Signed By: 06/03/23947 Normal [facility] Alanine aminotransferase [En zymatic activity/volume] in Serum or PlasmaOrdered By: aRshad Pendleton on 06-02-2023 ALT [Catalytic activity/Vol] 16 U/L 7-52 [facility] Albumin [Mass/volume] in Ser um or Plasma by Bromocresol green (BCG) dye binding methoOrdered By: Rashad Pendleton on 06-02-2023 Albumin BCG dye [Mass/Vol] 4.0 g/dL 3.5-5.7 [facility] Alkaline phosphatase [Enzyma tic activity/volume] in Serum or PlasmaOrdered By: Rashad Pendleton on 06-02-2023 ALP [Catalytic activity/Vol] 72 U/L 34-104 [facility] Aspartate aminotransferase [ Enzymatic activity/volume] in Serum or PlasmaOrdered By: Rashad Pendleton on 06-02-2023 AST [Catalytic activity/Vol] 20 U/L 13-39 [facility] Basophils Auto (Bld) [#/Vol] Ordered By: Rashad Pendleton on 06-02-2023 Basophils (Bld) [#/Vol] 0.0 10*3/uL 0.0-0.2 [facility] Basophils/100 WBC Auto (Bld) Ordered By: Rashad Pendleton on 06-02-2023 Basophils/100 WBC (Bld) 0.3 % . [facility] Bilirubin.total [Mass/volume ] in Serum or PlasmaOrdered By: Rashad Pendleton on 06-02-2023 Bilirubin [Mass/Vol] 0.3 mg/dL 0.3-1.0 [facility] COVID CepheidOrdered By: Denise Pendleton on 06-02-2023 SARS-CoV-2 (COVID-19) Ab IA Ql Negative Negative [facility] Comment on above: This is a duplicate [employer] Xpert Xpress CoV-2/Flu/RSV Plus RNA by RT-PCR result to be used for statistical tracking purpose only. SARS-CoV-2 (COVID-19) RNA ROSA+probe Ql (Unsp spec) [facility] Calcium [Mass/volume] in Ser um or PlasmaOrdered By: Rashad Pendleton on 06-02-2023 Calcium [Mass/Vol] 9.1 mg/dL 8.6-10.3 [facility] Carbon dioxide, total [Moles /volume] in Serum or PlasmaOrdered By: Rashad Pendleton on 06-02-2023 CO2 [Moles/Vol] 26.7 mmol/L 21.0-31.0 [facility] Chloride [Moles/volume] in S alexander or PlasmaOrdered By: Rashad Pendleton on 06-02-2023 Chloride [Moles/Vol] 105 mmol/L 98-107 [facility] Creatine kinase [Enzymatic a ctivity/volume] in Serum or PlasmaOrdered By: Rashad Pendleton on 06-02-2023 CK [Catalytic activity/Vol] 50 U/L 30-223 [facility] Creatinine [Mass/volume] in Serum or PlasmaOrdered By: Rashad Pendleton on 06-02-2023 Creatinine [Mass/Vol] 0.72 mg/dL 0.60-1.20 [facility] Eosinophils Auto (Bld) [#/Vo l]Ordered By: Rashad Pendleton on 06-02-2023 Eosinophils (Bld) [#/Vol] 0.2 10*3/uL 0.0-0.45 [facility] Eosinophils/100 WBC Auto (Bl d)Ordered By: Rashad Pendleton on 06-02-2023 Eosinophils/100 WBC (Bld) 2.8 % . [facility] Erythrocyte distribution wid th Auto (RBC) [Ratio]Ordered By: Rashad Pendleton on 06-02-2023 Erythrocyte distribution width (RBC) [Ratio] 14.6 % 11.9-15.3 [facility] Globulin Calc (S) [Mass/Vol] Ordered By: Rashad Pendleton on 06-02-2023 Globulin (S) [Mass/Vol] 2.6 g/dL [facility] Glucose [Mass/volume] in Ser um or PlasmaOrdered By: Rashad Pendleton on 06-02-2023 Glucose [Mass/Vol] 198 mg/dL 70-100 [facility] Comment on above: ADA recommended refe rence rangeRandom Glucose Reference Range is dependent on time and content of last meal. Glucose of more than 200 mg/dL in a nonstressed, ambulatory subject supports the diagnosis of Diabetes Mellitus. Hematocrit Auto (Bld) [Volum e fraction]Ordered By: Rashad Pendleton on 06-02-2023 Hematocrit (Bld) [Volume fraction] 36.2 % 34.0-46.4 [facility] Hemoglobin [Mass/volume] in BloodOrdered By: Rashad Pendleton on 06-02-2023 Hemoglobin (Bld) [Mass/Vol] 12.6 g/dL 11.8-15.4 [facility] Leukocytes [#/volume] correc vandana for nucleated erythrocytes in Blood by Automated counOrdered By: Rashad Pendleton on 06-02-2023 WBC corrected for nucl RBC Auto (Bld) [#/Vol] 7.7 10*3/uL 3.8-11.6 [facility] Lymphocytes Auto (Bld) [#/Vo l]Ordered By: Rashad Pendleton on 06-02-2023 Lymphocytes (Bld) [#/Vol] 3.3 10*3/uL 1.00-4.8 [facility] Lymphocytes/100 WBC Auto (Bl d)Ordered By: Rashad Pendleton on 06-02-2023 Lymphocytes/100 WBC (Bld) 42.3 % . [facility] MCH Auto (RBC) [Entitic mass ]Ordered By: Rashad Pendleton on 06-02-2023 MCH (RBC) [Entitic mass] 29.9 pg 24.7-34.3 [facility] MCHC Auto (RBC) [Mass/Vol]Or dered By: Rashad Pendleton on 06-02-2023 MCHC (RBC) [Mass/Vol] 34.8 g/dL 32.0-35.0 [facility] MCV Auto (RBC) [Entitic vol] Ordered By: Rashad Pendleton on 06-02-2023 MCV (RBC) [Entitic vol] 85.9 fL 80-100 [facility] Monocyte distribution width [Entitic volume] in Blood by AutomatedOrdered By: Rashad Pendleton on 06-02-2023 Monocyte distribution width Auto (Bld) [Entitic vol] 18.99 % 0.00-20.00 [facility] Monocytes Auto (Bld) [#/Vol] Ordered By: Rashad Pendleton on 06-02-2023 Monocytes (Bld) [#/Vol] 0.6 10*3/uL 0.0-0.8 [facility] Monocytes/100 WBC Auto (Bld) Ordered By: Rashad Pendleton on 06-02-2023 Monocytes/100 WBC (Bld) 8.3 % . [facility] Natriuretic peptide B [Mass/ Vol]Ordered By: Rashad Pendleton on 06-02-2023 Natriuretic peptide B (Bld) [Mass/Vol] 26.0 pg/mL 5-100 [facility] Neutrophils Auto (Bld) [#/Vo l]Ordered By: Rashad Pendleton on 06-02-2023 Neutrophils (Bld) [#/Vol] 3.6 10*3/uL 1.8-7.7 [facility] Neutrophils/100 WBC Auto (Bl d)Ordered By: Rashad Pendleton on 06-02-2023 Neutrophils/100 WBC (Bld) 46.3 % . [facility] No Panel InformationOrdered By: Rashad Pendleton on 06-02-2023 Estimated GFR (CKD-EPI) > 60.0 mL/Min [facility] Creatinine Clearance (Chem 108.28 [facility] Nucleated erythrocytes [Pres ence] in Blood by Automated countOrdered By: Rashad Pendleton on 06-02-2023 Nucleated RBC Auto Ql (Bld) 0.2 /100{WBC} 0-0.5 [facility] Platelet mean volume Auto (B ld) [Entitic vol]Ordered By: Rashad Pendleton on 06-02-2023 Platelet mean volume (Bld) [Entitic vol] 8.4 fL 6.3-10.7 [facility] Platelets Auto (Bld) [#/Vol] Ordered By: Rashad Pendleton on 06-02-2023 Platelets (Bld) [#/Vol] 303 10*3/uL 150-450 [facility] Protein [Mass/volume] in Ser um or PlasmaOrdered By: Rashad Pendleton on 06-02-2023 Protein [Mass/Vol] 6.6 g/dL 6.4-8.9 [facility] RBC Auto (Bld) [#/Vol]Ordere d By: Rashad Pendleton on 06-02-2023 RBC (Bld) [#/Vol] 4.21 10*6/uL 3.60-5.00 [facility] Serum or plasma albumin/glob ulin mass ratioOrdered By: Rashad Pendleton on 06-02-2023 Albumin/Globulin [Mass ratio] 1.5 {ratio} [facility] Serum or plasma anion gap de terminationOrdered By: Rashad Pendleton on 06-02-2023 Anion gap [Moles/Vol] TNP [facility] Comment on above: Test not performed Sodium [Moles/volume] in Ser um or PlasmaOrdered By: Rashad Pendleton on 06-02-2023 Sodium [Moles/Vol] 132 mmol/L 136-145 [facility] Troponin I.cardiac [Mass/vol ume] in Serum or Plasma by Detection limit <= 0.01 ng/Ordered By: Rashad Pendleton on 11-04-2023 Troponin I.cardiac DL <= 0.01 ng/mL [Mass/Vol] 4.2 pg/mL 0.0-15.0 [facility] Urea nitrogen [Mass/volume] in Serum or PlasmaOrdered By: Rashad Pendleton on 06-02-2023 Urea nitrogen [Mass/Vol] 21 mg/dL 7-25 [facility] WBC Auto (Bld) [#/Vol]Ordere d By: Rashad Pendleton on 06-02-2023 WBC (Bld) [#/Vol] 7.7 10*3/uL 3.8-11.6 [facility] A1C HEMOGLOBINon 05-21-2023 HbA1c (Bld) [Mass fraction] 6.3 % [employer] Other HbA1c (Bld) [Mass fraction]o n 05-21-2023 A1C HEMOGLOBIN [employer] Other A1C HEMOGLOBINon 02-08-2023 HbA1c (Bld) [Mass fraction] 6.3 % [employer] Other HbA1c (Bld) [Mass fraction]o n 02-08-2023 A1C HEMOGLOBIN [employer] Other Alanine aminotransferase [En zymatic activity/volume] in Serum or PlasmaOrdered By: Rashad Teran on 02-07-2023 ALT [Catalytic activity/Vol] 21 U/L Normal 7-52 [facility] Comment on above: Order Comment: Reaso n for Exam Type 2 diabetes mellitus without complications Performed By: #### L IPID, CBC, URMACRERAT, CMP #### [facility] [address] Albumin [Mass/volume] in Ser um or Plasma by Bromocresol green (BCG) dye binding methoOrdered By: Rashad Teran on 02-07-2023 Albumin BCG dye [Mass/Vol] 4.3 g/dL 3.5-5.7 [facility] Alkaline phosphatase [Enzyma tic activity/volume] in Serum or PlasmaOrdered By: Rashad Teran on 02-07-2023 ALP [Catalytic activity/Vol] 78 U/L Normal 34-104 [facility] Comment on above: Order Comment: Reaso n for Exam Type 2 diabetes mellitus without complications Performed By: #### L IPID, CBC, URMACRERAT, CMP #### [facility] [address] [place] [address] Aspartate aminotransferase [ Enzymatic activity/volume] in Serum or PlasmaOrdered By: Rashad Mast on 02-07-2023 AST [Catalytic activity/Vol] 24 U/L Normal 13-39 [facility] Comment on above: Order Comment: Reaso n for Exam Type 2 diabetes mellitus without complications Performed By: #### L IPID, CBC, URMACRERAT, CMP #### [facility] [address] [place] [address] Automated basophil %Ordered By: Rashad Mast on 02-07-2023 Basophils/100 WBC (Bld) 1.0 % Normal . [facility] Comment on above: Order Comment: Reaso n for Exam Type 2 diabetes mellitus without complications Performed By: #### L IPID, CBC, URMACRERAT, CMP #### [facility] [address] [place] [address] Automated basophil countOrde red By: Rashad Mast on 02-07-2023 Basophils (Bld) [#/Vol] 0.1 10*3/uL Normal 0.0-0.2 [facility] Comment on above: Order Comment: Reaso n for Exam Type 2 diabetes mellitus without complications Result Comment: PERF ORMED BY: [place] [address] PATHOLOGIST SUBSTANCE ABUSE SERVICES DIRECTOR MARTINEZ GARZA M.D. Performed By: #### L IPID, CBC, URMACRERAT, CMP #### [facility] [address] [place] [address] Automated blood monocyte cou ntOrdered By: Rashad Mast on 02-07-2023 Monocytes (Bld) [#/Vol] 0.6 10*3/uL Normal 0.0-0.8 [facility] Comment on above: Order Comment: Reaso n for Exam Type 2 diabetes mellitus without complications Performed By: #### L IPID, CBC, URMACRERAT, CMP #### [facility] [address] Automated eosinophil %Ordere d By: Rashad Mast on 02-07-2023 Eosinophils/100 WBC (Bld) 3.5 % Normal . [facility] Comment on above: Order Comment: Reaso n for Exam Type 2 diabetes mellitus without complications Performed By: #### L IPID, CBC, URMACRERAT, CMP #### [facility] [address] Automated eosinophil countOr dered By: Rashad Mast on 02-07-2023 Eosinophils (Bld) [#/Vol] 0.3 10*3/uL Normal 0.0-0.45 [facility] Comment on above: Order Comment: Reaso n for Exam Type 2 diabetes mellitus without complications Performed By: #### L IPID, CBC, URMACRERAT, CMP #### [facility] [address] [place] [address] Automated monocyte %Ordered By: Rashad Mast on 02-07-2023 Monocytes/100 WBC (Bld) 7.4 % Normal . [facility] Comment on above: Order Comment: Reaso n for Exam Type 2 diabetes mellitus without complications Performed By: #### L IPID, CBC, URMACRERAT, CMP #### [facility] [address] [place] [address] Automated neutrophil %Ordere d By: Rashad Mast on 02-07-2023 Neutrophils/100 WBC (Bld) 53.6 % Normal . [facility] Comment on above: Order Comment: Reaso n for Exam Type 2 diabetes mellitus without complications Performed By: #### L IPID, CBC, URMACRERAT, CMP #### [facility] [address] [place] [address] [place] Bilirubin.total [Mass/volume ] in Serum or PlasmaOrdered By: Rashad Mast on 02-07-2023 Bilirubin [Mass/Vol] 0.6 mg/dL Normal 0.3-1.0 [facility] Comment on above: Order Comment: Reaso n for Exam Type 2 diabetes mellitus without complications Performed By: #### L IPID, CBC, URMACRERAT, CMP #### [facility] [address] [place] [address] [place] Calcium [Mass/volume] in Ser um or PlasmaOrdered By: Rashad Mast on 02-07-2023 Calcium [Mass/Vol] 9.6 mg/dL Normal 8.6-10.3 [facility] Comment on above: Order Comment: Reaso n for Exam Type 2 diabetes mellitus without complications Performed By: #### L IPID, CBC, URMACRERAT, CMP #### [facility] [address] [place] [address] [place] Carbon dioxide, total [Moles /volume] in Serum or PlasmaOrdered By: Rashad Mast on 02-07-2023 CO2 [Moles/Vol] 28.0 mmol/L Normal 21.0-31.0 [facility] Comment on above: Order Comment: Reaso n for Exam Type 2 diabetes mellitus without complications Performed By: #### L IPID, CBC, URMACRERAT, CMP #### [facility] [address] [place] [address] [place] Chloride [Moles/volume] in S alexander or PlasmaOrdered By: Rashad Mast on 02-07-2023 Chloride [Moles/Vol] 103 mmol/L Normal 98-107 [facility] Comment on above: Order Comment: Reaso n for Exam Type 2 diabetes mellitus without complications Performed By: #### L IPID, CBC, URMACRERAT, CMP #### [facility] [address] [place] [address] [place] Cholesterol [Mass/volume] in Serum or PlasmaOrdered By: Rashad Mast on 02-07-2023 Cholesterol [Mass/Vol] 119 mg/dL Low 140-200 [facility] Comment on above: Chol less than 200 m g/dl low riskChol 201-239 mg/dl borderline riskChol 240 mg/dl and greater high risk Order Comment: Reaso n for Exam Type 2 diabetes mellitus without complications Result Comment: Chol less than 200 mg/dl low risk Chol 201-239 mg/dl borderline risk Chol 240 mg/dl and greater high risk Performed By: #### L IPID, CBC, URMACRERAT, CMP #### [facility] [address] Cholesterol in LDL Calc [Mas s/Vol]Ordered By: Rashad Teran on 02-07-2023 Cholesterol in LDL [Mass/Vol] 40 mg/dL 0-100 [facility] Comment on above: LDL ATP III CLASSIFI CATIONLDL less than 100 mg/dL OptimalLDL 100-129 mg/dL Near or above optimalLDL 130-159 mg/dL Borderline highLDL 160-189 mg/dL HighLDL greater than 189 mg/dL Very high Cholesterol in VLDL Calc [Ma ss/Vol]Ordered By: Rashad Teran on 02-07-2023 Cholesterol in VLDL [Mass/Vol] 29 mg/dL [facility] Complete Blood Count Auto Di ffon 02-07-2023 Mean Corpuscular HGB Conc 33.2 g/dL Normal 32.0-35.0 [facility] Comment on above: Order Comment: Reaso n for Exam Type 2 diabetes mellitus without complications Performed By: #### L IPID, CBC, URMACRERAT, CMP #### [facility] [address] [place] [address] NRBC% 0.2 /100{WBC} Normal 0-0.5 [facility] Comment on above: Order Comment: Reaso n for Exam Type 2 diabetes mellitus without complications Performed By: #### L IPID, CBC, URMACRERAT, CMP #### [facility] [address] [place] [address] Comprehensive Metabolic Pane tino 02-07-2023 Albumin [Mass/Vol] 4.3 g/dL Normal 3.5-5.7 [facility] Comment on above: Order Comment: Reaso n for Exam Type 2 diabetes mellitus without complications Performed By: #### L IPID, CBC, URMACRERAT, CMP #### [facility] [address] [place] [address] [place] GFR/1.73 sq M.predicted MDRD (S/P/Bld) [Vol rate/Area] mL/min/{1.73_m2} Normal [facility] Comment on above: Order Comment: Reaso n for Exam Type 2 diabetes mellitus without complications Performed By: #### L IPID, CBC, URMACRERAT, CMP #### [facility] [address] [place] [id number] [place] Creatinine [Mass/volume] in Serum or PlasmaOrdered By: Rashad Mast on 02-07-2023 Creatinine [Mass/Vol] 0.82 mg/dL Normal 0.60-1.20 [facility] Comment on above: Order Comment: Reaso n for Exam Type 2 diabetes mellitus without complications Performed By: #### L IPID, CBC, URMACRERAT, CMP #### [facility] [address] [place] [address] [place] Creatinine [Mass/volume] in UrineOrdered By: Rashad Mast on 02-07-2023 Creatinine (U) [Mass/Vol] 140.0 mg/dL 11.0-20.0 [facility] Erythrocyte distribution wid th [Ratio] by Automated countOrdered By: Rashad Teran on 02-07-2023 Erythrocyte distribution width (RBC) [Ratio] 14.3 % Normal 11.9-15.3 [facility] Comment on above: Order Comment: Reaso n for Exam Type 2 diabetes mellitus without complications Performed By: #### L IPID, CBC, URMACRERAT, CMP #### [facility] [address] [place] [address] [place] Erythrocytes [#/volume] in B lood by Automated countOrdered By: Rashad Teran on 02-07-2023 RBC (Bld) [#/Vol] 4.98 10*6/uL Normal 3.60-5.00 [facility] Comment on above: Order Comment: Reaso n for Exam Type 2 diabetes mellitus without complications Performed By: #### L IPID, CBC, URMACRERAT, CMP #### [facility] [address] [place] [address] [place] Glucose [Mass/volume] in Ser um or PlasmaOrdered By: Rashad Mast on 02-07-2023 Glucose [Mass/Vol] 122 mg/dL High 70-100 [facility] Comment on above: ADA recommended refe rence rangeRandom Glucose Reference Range is dependent on time and content of last meal. Glucose of more than 200 mg/dL in a nonstressed, ambulatory subject supports the diagnosis of Diabetes Mellitus. Order Comment: Reaso n for Exam Type 2 diabetes mellitus without complications Result Comment: [place] Glucose Reference Range is dependent on time and content of last meal. Glucose of more than 200 mg/dL in a nonstressed, ambulatory subject supports the diagnosis of Diabetes Mellitus. ADA recommended reference range Performed By: #### L IPID, CBC, URMACRERAT, CMP #### [facility] [address] Hematocrit [Volume Fraction] of Blood by Automated countOrdered By: RashadSpredfashion on 02-07-2023 Hematocrit (Bld) [Volume fraction] 42.0 % Normal 34.0-46.4 [facility] Comment on above: Order Comment: Reaso n for Exam Type 2 diabetes mellitus without complications Performed By: #### L IPID, CBC, URMACRERAT, CMP #### [facility] [address] [place] [address] Hemoglobin [Mass/volume] in BloodOrdered By: Rashad Mast on 02-07-2023 Hemoglobin (Bld) [Mass/Vol] 14.0 g/dL Normal 11.8-15.4 [facility] Comment on above: Order Comment: Reaso n for Exam Type 2 diabetes mellitus without complications Performed By: #### L IPID, CBC, URMACRERAT, CMP #### [facility] [address] [place] [address] Leukocytes [#/volume] correc vandana for nucleated erythrocytes in Blood by Automated counOrdered By: Rashad Mast on 02-07-2023 WBC corrected for nucl RBC Auto (Bld) [#/Vol] 7.4 10*3/uL 3.8-11.6 [facility] Leukocytes [#/volume] in Blo od by Automated countOrdered By: RashadSpredfashion on 02-07-2023 WBC (Bld) [#/Vol] 7.4 10*3/uL Normal 3.8-11.6 [facility] Comment on above: Order Comment: Reaso n for Exam Type 2 diabetes mellitus without complications Performed By: #### L IPID, CBC, URMACRERAT, CMP #### [facility] [address] Lipid Panelon 02-07-2023 LDL Cholesterol,Calculate d 40 mg/dL Normal 0-100 [facility] Comment on above: Order Comment: Reaso n for Exam Type 2 diabetes mellitus without complications Result Comment: LDL ATP III CLASSIFICATION LDL less than 100 mg/dL Optimal LDL 100-129 mg/dL Near or above optimal LDL 130-159 mg/dL Borderline high LDL 160-189 mg/dL High LDL greater than 189 mg/dL Very high Performed By: #### L IPID, CBC, URMACRERAT, CMP #### [facility] [address] Triglyceride w/Reflex 148 mg/dL Normal 0-149 [facility] Comment on above: [...] #### L IPID, CBC, URMACRERAT, CMP #### [address] VLDL CHOLESTEROL 29 mg/dL Normal [facility] Comment on above: Order Comment: Reaso n for Exam Type 2 diabetes mellitus without complications Performed By: #### L IPID, CBC, URMACRERAT, CMP #### [facility] [address] [place] [address] [place] Lymphocytes [#/volume] in Bl ood by Automated countOrdered By: Rashad Teran on 02-07-2023 Lymphocytes (Bld) [#/Vol] 2.6 10*3/uL Normal 1.00-4.8 [facility] Comment on above: Order Comment: Reaso n for Exam Type 2 diabetes mellitus without complications Performed By: #### L IPID, CBC, URMACRERAT, CMP #### [facility] [address] [place] [address] [place] Lymphocytes/100 leukocytes i n Blood by Automated countOrdered By: Rashad Mast on 02-07-2023 Lymphocytes/100 WBC (Bld) 34.5 % Normal . [facility] Comment on above: Order Comment: Reaso n for Exam Type 2 diabetes mellitus without complications Performed By: #### L IPID, CBC, URMACRERAT, CMP #### [facility] [address] MCH [Entitic mass] by Automa vandana countOrdered By: Rashad Mast on 02-07-2023 MCH (RBC) [Entitic mass] 28.0 pg Normal 24.7-34.3 [facility] Comment on above: Order Comment: Reaso n for Exam Type 2 diabetes mellitus without complications Performed By: #### L IPID, CBC, URMACRERAT, CMP #### [facility] [address] [place] [address] MCHC Auto (RBC) [Mass/Vol]Or dered By: Rashad Mast on 02-07-2023 MCHC (RBC) [Mass/Vol] 33.2 g/dL 32.0-35.0 [facility] MCV [Entitic volume] by Auto mated countOrdered By: Rashad Mast on 02-07-2023 MCV (RBC) [Entitic vol] 84.3 fL Normal 80-100 [facility] Comment on above: Order Comment: Reaso n for Exam Type 2 diabetes mellitus without complications Performed By: #### L IPID, CBC, URMACRERAT, CMP #### [facility] [address] [place] [address] MicroAlb Creat Ratio,Uon Creatinine, Urine (Random) 140.0 mg/dL High 11.0-20.0 [facility] Comment on above: Order Comment: Reaso n for Exam Type 2 diabetes mellitus without complications Performed By: #### L IPID, CBC, URMACRERAT, CMP #### [facility] [address] [place] [address] Microalbumin/Creatini ne Ratio 5.0 mg/g Normal 0.0-30.0 [facility] Comment on above: Order Comment: Reaso n for Exam Type 2 diabetes mellitus without complications Result Comment: 30-3 00 mg/g indicates an increased risk for diabetic nephropathy. Greater than 300 mg/g is consistent with clinical nephropathy. (Am. J. Kidney Disease 1995, 25:107) PERFORMED BY: [place] [address] PATHOLOGIST SUBSTANCE ABUSE SERVICES DIRECTOR MARTINEZ GARZA M.D. Performed By: #### L IPID, CBC, URMACRERAT, CMP #### [facility] [address] [place] [address] Microalbumin [Mass/volume] i n UrineOrdered By: Rashad Mast on 02-07-2023 Albumin DL <= 20 mg/L (U) [Mass/Vol] 0.8 mg/dL Normal 0.0-1.8 [facility] Comment on above: Order Comment: Reaso n for Exam Type 2 diabetes mellitus without complications Performed By: #### L IPID, CBC, URMACRERAT, CMP #### [facility] [address] [place] [address] Neutrophils [#/volume] in Bl ood by Automated countOrdered By: Rashad Mast on 02-07-2023 Neutrophils (Bld) [#/Vol] 4.0 10*3/uL Normal 1.8-7.7 [facility] Comment on above: Order Comment: Reaso n for Exam Type 2 diabetes mellitus without complications Performed By: #### L IPID, CBC, URMACRERAT, CMP #### [facility] [address] [place] [address] No Panel InformationOrdered By: Rashad Mast on 02-07-2023 Estimated GFR (CKD-EPI) > 60.0 mL/Min [facility] Creatinine Clearance (Chem N/A [facility] Nucleated erythrocytes [Pres ence] in Blood by Automated countOrdered By: Rashad Mast on 02-07-2023 Nucleated RBC Auto Ql (Bld) 0.2 /100{WBC} 0-0.5 [facility] Platelet mean volume [Entiti c volume] in Blood by Automated countOrdered By: Rashad Mast on 02-07-2023 Platelet mean volume (Bld) [Entitic vol] 9.3 fL Normal 6.3-10.7 [facility] Comment on above: Order Comment: Reaso n for Exam Type 2 diabetes mellitus without complications Performed By: #### L IPID, CBC, URMACRERAT, CMP #### [facility] [address] [place] [address] [place] Platelets [#/volume] in Bloo d by Automated countOrdered By: Rashad Mast on 02-07-2023 Platelets (Bld) [#/Vol] 242 10*3/uL Normal 150-450 [facility] Comment on above: Order Comment: Reaso n for Exam Type 2 diabetes mellitus without complications Performed By: #### L IPID, CBC, URMACRERAT, CMP #### [facility] [address] Potassium [Moles/volume] in Serum or PlasmaOrdered By: Rashad Mast on 02-07-2023 Potassium [Moles/Vol] 4.4 mmol/L Normal 3.5-5.1 [facility] Comment on above: Order Comment: Reaso n for Exam Type 2 diabetes mellitus without complications Performed By: #### L IPID, CBC, URMACRERAT, CMP #### [facility] [address] [place] [address] [place] Protein [Mass/volume] in Ser um or PlasmaOrdered By: Rashad Mast on 02-07-2023 Protein [Mass/Vol] 6.9 g/dL Normal 6.4-8.9 [facility] Comment on above: Order Comment: Reaso n for Exam Type 2 diabetes mellitus without complications Performed By: #### L IPID, CBC, URMACRERAT, CMP #### [facility] [address] [place] [id number] [place] Serum globulin measurement b y calculation (mass/volume)Ordered By: Rashad Mast on 02-07-2023 Globulin (S) [Mass/Vol] 2.6 g/dL Normal [facility] Comment on above: Order Comment: Reaso n for Exam Type 2 diabetes mellitus without complications Performed By: #### L IPID, CBC, URMACRERAT, CMP #### [facility] [address] Serum or plasma albumin/glob ulin mass ratioOrdered By: Rashad Teran on 02-07-2023 Albumin/Globulin [Mass ratio] 1.7 {ratio} Normal [facility] Comment on above: Order Comment: Reaso n for Exam Type 2 diabetes mellitus without complications Performed By: #### L IPID, CBC, URMACRERAT, CMP #### [facility] [address] Serum or plasma anion gap de terminationOrdered By: Rashad Mast on 02-07-2023 Anion gap [Moles/Vol] 12.4 mmol/L Normal 6.0-15.0 [facility] Comment on above: Order Comment: Reaso n for Exam Type 2 diabetes mellitus without complications Performed By: #### L IPID, CBC, URMACRERAT, CMP #### [facility] [address] [place] [address] Serum or plasma high density lipoprotein (HDL) cholesterol measurementOrdered By: Rashad Teran on 02-07-2023 Cholesterol in HDL [Mass/Vol] 49 mg/dL Normal 23-92 [facility] Comment on above: HDL CHOL ATP-III CLA SSIFICATION Cardiovascular RiskHDL > or equal to 60 mg/dL LOWHDL < 40 mg/dL HIGH Order Comment: Reaso n for Exam Type 2 diabetes mellitus without complications Result Comment: HDL CHOL ATP-III CLASSIFICATION Cardiovascular Risk HDL > or equal to 60 mg/dL LOW HDL < 40 mg/dL HIGH Performed By: #### L IPID, CBC, URMACRERAT, CMP #### [facility] [address] [place] [address] Serum or plasma total choles terol/high density lipoprotein (HDL) cholesterol mass ratOrdered By: Rashad Teran on 02-07-2023 Cholesterol.total/Cho lesterol in HDL [Mass ratio] 2.4 {ratio} Normal <5.0 [facility] Comment on above: Order Comment: Reaso n for Exam Type 2 diabetes mellitus without complications Result Comment: PERF ORMED BY: [place] [address] PATHOLOGIST SUBSTANCE ABUSE SERVICES DIRECTOR MARTINEZ GARZA M.D. Performed By: #### L IPID, CBC, URMACRERAT, CMP #### [facility] [address] [place] [address] [place] Sodium [Moles/volume] in Ser um or PlasmaOrdered By: Rashad Mast on 02-07-2023 Sodium [Moles/Vol] 139 mmol/L Normal 136-145 [facility] Comment on above: Order Comment: Reaso n for Exam Type 2 diabetes mellitus without complications Performed By: #### L IPID, CBC, URMACRERAT, CMP #### [facility] [address] Triglyceride [Mass/volume] i n Serum or PlasmaOrdered By: Rashad Mast on 02-07-2023 Triglyceride [Mass/Vol] 148 mg/dL 0-149 [facility] Comment on above: TRIG ATP III CLASSIF ICATIONTRIG less than 150 mg/dL NormalTRIG 150-199 mg/dL Borderline highTRIG 200-500 mg/dL High TRIG greater than 500 mg/dL Very highStandard traceable to the Center for Disease Conrtrol and Prevention (CDC) test method. Urea nitrogen [Mass/volume] in Serum or PlasmaOrdered By: Rashad Mast on 02-07-2023 Urea nitrogen [Mass/Vol] 15 mg/dL Normal 7-25 [facility] Comment on above: Order Comment: Reaso n for Exam Type 2 diabetes mellitus without complications Performed By: #### L IPID, CBC, URMACRERAT, CMP #### [facility] [address] Urine microalbumin/creatinin e mass ratioOrdered By: Rashad Mast on 02-07-2023 Albumin/Creatinine DL <= 20 mg/L (U) [Mass ratio] 5.0 mg/g 0.0-30.0 [facility] Comment on above: 30-300 mg/g indicate s an increased risk for diabetic nephropathy. Greater than 300 mg/g is consistent with clinical nephropathy. (Am. J. Kidney Disease 1995, 25:107) MM screening mammo BI w/CADo n 10-23-2022 MM screening mammo BI w/CAD [facility] [place] [place] [address] Mammography Report Signed Patient: Mavis Pickadr MR#: [id number] : 1960 Acct:[id number] Age/Sex: 62 / F ADM Date: 10/21/22 Loc: [place] Room: Type: [facility] CLI Attending Dr: Baltazar Strange DO Copies to: Mast/Preceptor, Rashad BEGUM-S Baltazar Strange DO Ordering Provider: Baltazar Strange [...] Anai Gomez M.D.10/23/2022 7:17 AM Dictation Location: [facility] Transcribed By: [facility] 10/23/22716 Dictated By: Anai Gomez MD 10/23/22713 Signed By: 10/23/22716 [facility] A1C HEMOGLOBINon 10-16-2022 HbA1c (Bld) [Mass fraction] 7.0 % [employer] Other HbA1c (Bld) [Mass fraction]o n 10-16-2022 A1C HEMOGLOBIN Drop Mess[employer] Other A1C HEMOGLOBINon 06-26-2022 HbA1c (Bld) [Mass fraction] 8.6 % [employer] Other HbA1c (Bld) [Mass fraction]o n 06-26-2022 A1C HEMOGLOBIN Drop Messages Other A1C HEMOGLOBINon 03-02-2022 HbA1c (Bld) [Mass fraction] 9.0 % [employer] Other HbA1c (Bld) [Mass fraction]o n 03-02-2022 A1C HEMOGLOBIN Drop Messages Other Progress Note-Physicianon Protein mass conc Patient: [...] insulin dependent (IDDM), controlled / SNOMED CT 730765934 / ConfirmedAsthma / SNOMED CT 488061870 / ConfirmedLocalized osteoarthritis of knee / SNOMED CT 638177844 / Confirmed Physical Examination Intake and Output Denies significant n/v and is tolerating p.o. No qualifying data available Respiratory: Adequate air exchange with protestant of preoperative function.. Cardiovascular: Cardiovascular function is stable and has returned to preoperative levels.. Neurologic: Pt has returned to preoperative baseline.. Review / Management Condition: Stable. Assessment Anesthetic outcome No anesthetic complications noted. Plan Transfer/ Discharge: Patient can be discharged from PACU when criteria met. Condition good. Normal [facility] Comment on above: Result Comment: Elec [...] insulin dependent (IDDM), controlled / SNOMED CT 419213060 / ConfirmedAsthma / SNOMED CT 060451641 / ConfirmedLocalized osteoarthritis of knee / SNOMED CT 023766114 / Confirmed Physical Examination Intake and Output Denies significant n/v and is tolerating p.o. Vital Signs (last 24 hrs) Last Charted Temp Oral 36.4 DegC (JUL 12:)Heart Rate Apical 84 bpm (JUL 12:)Resp Rate 16 br/min (JUL 12:)SBP H 156 mmHg (JUL 12:)DBP 74 mmHg (JUL 12:)SpO2 97 % (JUL 12 06:) Pain assessment: Pain Assessment 07/12/2018 06:14 EST Preliminary Pain Scale 0 07/12/2018 06:14 EST Pain Symptoms Self Report No, able to self report . Respiratory: Adequate air exchange with protestant of preoperative function.. Cardiovascular: Cardiovascular function is stable and has returned to preoperative levels.. Neurologic: Pt has returned to preoperative baseline.. Review / Management Condition: Stable. Assessment Anesthetic outcome No anesthetic complications noted. Plan Transfer/ Discharge: Patient can be discharged from PACU when criteria met. Condition good. Normal [facility] Coding Summary.on 07-16-2018 Coding Summary. 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 However, the narrative phrase printed from the coding software may appear abbreviated, or result in slightly different terminology. Coded By: Radha Ch Date Saved: 07/16/2018 08:23 am [facility] Coding Summary.on 07-15-2018 Coding Summary. CODING DATE: FINAL [facility] STATUS: PAYOR: Sulma ADMIT DX: REASON FOR VISIT DX: E87.1 [...] Nesbitt CphT Date Saved: 07/15/2018 01:38 pm Normal [facility] Main OR Intraoperative Recor don 07-15-2018 Main OR Intraoperative Record IntraOp Document Type FT Summary Primary Physician: Gustavo Pruett DOen Finalized Date/Time: 07/15/18 14:25:27 Pt. Name: MAVIS PICKARD Evelia SquiresB./Sex: 1960 Female Med Rec #: [id number] Physician: Abrahan Pruett DO Financial #: [id number] Pt. Type: I Room/Bed: [place] [address] Admit/Disch: 07/12/18 05:38:00 - 07/13/18 15:35:00 Institution: Case Times FT Entry 1 Patient Times In Room 07/12/18 07:44:00 Out Room 07/12/18 10:08:00 Procedure Times Start 07/12/18 08:19:00 Stop 07/12/18 10:05:00 Anesthesia Times Start 07/12/18 07:44:00 Stop 07/12/18 10:08:00 Block Timeout w/ 07/12/18 07:08:00 Anesthesia Last Modified By: Kelley Boggs CST 07/12/18 10:08:14 General Comments: [id number] - patient taken to block room hooked to monitros HR 76, sating 96% on RA and block performed by Dr. Noland USING ULTRASOUND AND AREA PREPPED WITH CHLORAPREP, Petros MENDIOLA RN ASSIST, PATIENT TOLERATED WELL, PATIENT THEN TAKEN BACK TO ASU AND HOOKED TO MONITORS AND NURSE IN ASU GIVEN REPORT. Stacie ANGEL RN 0754- SPINAL DONE IN OR BY NAZ RAYMOND, PATIENT SITTING AT EDGE OF BED, Petros MENDIOLA RN ASSIST, PATIENT ASSISTED TO SUPINE POSITION AFTER SPINAL COMPLETED, PATIENT TOLERATED WELL. Stacie ANGEL RN 07/15/18 Chart opened to review and send charges Cammie Boggs CST Case Attendance FT Entry 1 Entry 2 Entry 3 Case Attendee Naz Alfred DO, Steven Rivera RN, Carlos Manuel Chon Performed Anesthesiologist Surgeon - Primary ELECTRIC MELT OPERATOR Pulmonary Specialist Time In 07/12/18 07:44:00 07/12/18 08:02:00 07/12/18 07:44:00 Time Out 07/12/18 10:08:00 07/12/18 09:42:00 07/12/18 10:08:00 Procedure KNEE TOTAL KNEE TOTAL KNEE TOTAL ARTHROPLASTY(Right) ARTHROPLASTY(Right) ARTHROPLASTY(Right) Comments DR NOLAND SUPERVISING Last Modified By: Nahum RN, Paris 07/12/18 Nahum RN, Paris 07/12/18 Nahum RN, Paris 07/12/18 10:11:04 10:11:04 10:11:04 Entry 4 Entry 5 Entry 6 Case Attendee Nahum RN, Paris Harrington RN, Latrice Fontana MD PHYSICIAN DERMATOLOGIST, Geovanna Ochoa Role Performed Salesforce Specialist - Primary Salesforce Specialist - Primary Scrub - Primary Time In 07/12/18 07:50:00 07/12/18 07:44:00 07/12/18 07:44:00 Time Out 07/12/18 10:08:00 07/12/18 09:44:00 07/12/18 09:44:00 Procedure KNEE TOTAL KNEE TOTAL KNEE TOTAL ARTHROPLASTY(Right) ARTHROPLASTY(Right) ARTHROPLASTY(Right) Comments Last Modified By: Nahum RN, Paris 07/12/18 Nahum RN, Paris 07/12/18 Nahum RN, Paris 07/12/18 10:11:04 10:11:04 10:11:04 Entry 7 Entry 8 Case Attendee Jean MD PHYSICIAN DERMATOLOGIST, Meseret Mendiola RN, CNOR, CRNFA, ONC, Kristina Role Performed Scrub - Other Staff - Other Time In 07/12/18 07:46:00 07/12/18 07:44:00 Time Out 07/12/18 10:08:00 07/12/18 08:10:00 Procedure KNEE TOTAL KNEE TOTAL ARTHROPLASTY(Right) ARTHROPLASTY(Right) Comments OUTSIDE MACHINE HAND Last Modified By: Nahum RN, Paris 07/12/18 Nahum RN, Paris 07/12/18 10:11:04 10:11:04 General Comments: CELESTINO CHOI REP PRESENT FOR PROCEDURE. Stacie ANGEL RNquartz cutter Protocols FT Pre-Care Text: Implements protective measures [...] X-ray Applicable) PreOp Antibiotic Yes Time Out Wesley RAYMOND, Naz C, Given Participants Abrahan Pruett DO, Rivera RN, Nahum Horowitz RN, Len Toledo RN, Marizol Roberson CST, Jean Javed CST, Macie C Time Out Complete 07/12/18 [...] Procedure Yes Primary Surgeon Abrahan Pruett DO Start 07/12/18 08:19:00 Stop 07/12/18 10:05:00 Anesthesia Type [facility] Orthopedics Wound Class 1 - [...] By Naz Alfred, Outcomes Met? Yes Harjeet POSADA, Nahum Horowitz RN, Len Toledo RN, Hernan [...] Emily A Coy RN, Emily A 07/12/18 07:39:45 07/12/18 07:39:45 07/12/18 07:39:45 Entry [...] Condition Condition Grounding Pad Paris Sidhu RN By Outcomes Met? Yes Last Modified By: [...] 09:41:00 07/12/18 09:44:00 By Hernan RN, CNOR, CRMAEA, Len POSADA, Len Roberson RN, Emily A, ONC, Lucille, Churchill Churchill MD PHYSICIAN DERMATOLOGIST, Geovanna Fontana MD PHYSICIAN DERMATOLOGIST, Geovanna E MD PHYSICIAN DERMATOLOGIST, Geovanna Ochoa Outcomes Met? Yes Yes Yes Last Modified [...] to transfer/transport General Comments: REPORT GIVEN TO SCRAP WORKEREdu ANGEL RN Dressing/Packing FT Pre-Care Text: Administers [...] PURPLE Setting 375 mmHg 34 X 4 [6545-593-361][F] Equipment Number C Placement Right Upper Thigh [...] [6197-9-001][F] BONE [6197-9-001][F] Serial Number Lot Number [id number] Administrative Analyst [employer]-SnapMD FT-SnapMD JIMBO Catalog ?# [id number] [F] 6197-9-010 [F] [id number]-G-[id number] Size FULL DOSE FULL DOSE 5 9MM THKNS Expiration Date 12/28/19 11/27/19 09/27/18 Usage Data Implant Site RIGHT KNEE RIGHT KNEE RIGHT KNEE Quantity 1 1 1 Temperature Reconstitution Method Outcomes Met? Yes Yes Yes Last Modified By: Len RN, Latrice Harrington RN, Latrice Harrington RN, Latrice Castro 07/12/18 08:43:13 07/12/18 08:43:13 07/12/18 09:20:02 Entry 4 Entry 5 Implant/Explant Implant Implant Implant Identification Description TRIATHLON POSTERIOR TRIATHLON PRIMARY STABILIZED FEMORAL TIBIAL BASEPLATE Serial Number Lot Number [id number] Administrative Analyst JIMBO JIMBO Catalog ?# [id number]-[id number] Size [...] Present Upon Arrival No Inserted LF 16FR [[id number]][F] Insertion Date/Time 07/12/18 08:02:00 Urine Residual 110 Insertion Site Uretheral Urine YELLOW/ CLOUDY URINE Characteristics Inserted By Paris Sidhu RN Discontinued? No Outcomes Met? Yes [...] BLANKET MISTRAL AIR Quantity 1 Aid TORSO [[id number]][F] Fluid/[employer] [place] [employer] Mistral warming system Setting HIGH/43 Body Site Upper anterior torso Last Modified By: Latrice Harrington RN 07/12/18 08:35:52 Case Comments Finalized By: Kelley Boggs CST Document Signatures Signed By: Paris Sidhu RN 07/12/18 10:11 Kelley Boggs CST 07/15/18 14:25 Normal [facility] Sodiumon 07-15-2018 Sodium molar conc 134 mmol/L Low 135-145 [facility] Comment on above: Performed By: #### 1 [id number], 3292216, 5170307, 8689015, [id number], 9727729, 3813643 ####[facility] [address] [place] [address] Inpatient Clinical Summaryon 07-14-2018 Inpatient Clinical Summary [address] [address] Clinical Summary Person Information:Name: MAVIS PICKARD Age: 58 Years : 1960 12:00 AM Sex: Female PCP: RASHAD TERAN DO Marital Status: Race:White Ethnicity:Non- or Language:Amharic Visit Id: Visit Reason:RIGHT KNEE OA Speciality: Acuity: Enc Type: Inpatient Med Service: Surgery Arrival:07/12/2018 5:38 AM Discharge: 07/13/2018 3:35 PM Dispo Type: Home w/ Home Health Address:[address] [place] [id number] Provider Notes: Diagnosis:1:Knee osteoarthritis; 2:Anemia; 3:Hyponatremia; 4:Asthma; [...] Abrahan Pruett DO Follow up:With: Address: When: Ab[place]han Pruett [place] [id number] Business (1) 08/07/2018 2:00 PM With: Address: When: RASHAD TERAN [address] [place], [place] [id number] Business (1) Patient Education Information: Osteoarthritis; Hyponatremia, Zdah-jv-Aglb; Shine - Post Op Total Knee Arthroplasty (Revised 2016) (CUSTOM)Percocet 325 mg-5 mg Tab Normal [facility] Inpatient Patient Summaryon 07-14-2018 Inpatient Patient Summary [address] [address] Patient Discharge Instructions PERSON INFORMATION Name: MAVIS PICKARD Date of : 1960 12:00 AM Current Date: 07/14/18 09:43:55 PHYSICIANS Admitting Physician: Abrahan Pruett [facility] Physician: RASHAD TERAN DO Comment: Discharge Diagnosis: 1:Knee osteoarthritis; 2:Anemia; 3:Hyponatremia; 4:Asthma; 5:Diabetes mellitus type 2, insulin dependent; 6:Obesity; 7:Depression; 8:No contraindication to deep vein thrombosis (DVT) prophylaxisCondition at Discharge: Stable MAVIS PICKARD has been given the following list of [...] results: NoneFollow up:With: Address: When: Abrahan Pruett [facility] [place] [address] [address] Business (1) 08/07/2018 2:00 PM With: Address: When: RASHAD TERAN [address] [place] [address] Business (1) In the event that this physician does not participate in your insurance network, please consult with your insurance company to find a nearby participating provider. Comment: NEERAJ Crowe CYNTHIA S, have received the attached patient education materials/instructions and have verbalized understanding:Patient Signature __ Date Clinican/Nu rse Signature Date HERE ARE THE MEDICATION CHANGES THAT OCCURRED DURING YOUR HOSPITAL STAY New [facility]ations[id number] [address] [place], [place] [id number], [phone]-oxycodon e (Percocet 325 mg-5 mg Tab) 1 [...] Tabs By Mouth every day.Pharmacy Information: [address] [facility] Comment: PATIENT EDUCATION INFORMATIONInstructions:Os teoarthritisOsteoarthritis is a [...] aerobics, that get your heart pumping. ? Jfcsz-lk-ffihfr activities. These keep your joints limber.? Balance [...] have night sweats. FOR MORE INFORMATION? National [place] of Arthritis and Musculoskeletal and Skin Diseases: www.niams.nih.gov? National [place] on Aging: www.anahi.nih.gov? [place] [employer]: www.rheumatology.org Document Released: 07/16/2006 Document Revised: 11/30/2014 Document Reviewed: 2014ExitCare? Patient Information ?2015 [employer]. This information is not intended to replace [...] Revised: 10/07/2012 Document Reviewed: 03/27/2012ExitCare? Patient Information ?2014 [employer]. This information is not intended to replace advice given to you by your health care provider. Make sure you discuss any questions you have with your health care provider.Abrahan Pruett D.O.[address] [place] [address] [phone] ATIVE TOTAL KNEE ARTHROPLASTY HOME DISCHARGE INSTRUCTIONSINCISION [...] will continue at home, possible with the property management assistant of Home Health Physical Therapy or [...] too soon, you are considered an impaired chair car driver, and this could be a problem. It is therefore advised not to drive until after your first office visit following surgeryFOLLOW-UP OFFICE VISIT: SEdu Pruett D.O.Revised: 2010 Medication Leaflets:acetaminophen and oxycodone [...] may report side effects to FDA at 6-210-NHL-9779.What other drugs will affect acetaminophen and oxycodone?Narcotic [...] with acetaminophen and oxycodone, including prescription and qqtu-hzg-qiwvvil medicines, vitamins, and herbal products. Not all [...] to ensure that the information provided by [employer]. ('[employer]') is accurate, up-to-date, and complete, but no guarantee is made to that effect. Drug information contained herein may be time sensitive. [employer] information has been compiled for use by healthcare practitioners and consumers in the [place] and therefore [employer] does not warrant that uses outside of the [place] are appropriate, unless specifically indicated otherwise. [employer]'s drug information does not endorse drugs, diagnose patients or recommend therapy. [employer]'s drug information is an informational resource designed [...] effective or appropriate for any given patient. [facility] does not assume any responsibility for any aspect of healthcare administered with the aid of information [facility] provides. The information contained herein is not intended to cover all possible uses, directions, precautions, warnings, drug interactions, allergic reactions, or adverse effects. If you have questions about the drugs you are taking, check with your doctor, nurse or pharmacist. Copyright 0549-7749 [facility] [employer] Version: 16.. Revision Date: 07/10/2017. Thank you for choosing [facility] Normal [facility] Auto Diffon 07-13-2018 Basophils Auto #/vol (Bld) 0.3 % Normal 0.0-2.0 [facility] Comment on above: Order Comment: Order Added by Discern Expert. Performed By: #### 1 [id number], 6059763, 2652473, 0727113, 027298408, 5573423, 2679451 ####[facility] [address] [place] [address] Basophils/Leukocytes Auto Pure number fraction (Bld) 0.0 E9/L Normal 0.0-0.2 [facility] Comment on above: Order Comment: Order Added by Discern Expert. Performed By: #### 1 9626989, 1729752, 6829581, 5470656, 656064507, 6666620, 1341401 ####[facility] [address] [place] [address] Eosinophils/100 WBC Auto (Bld) 0.7 % Normal 0.0-8.0 [facility] Comment on above: Order Comment: Order Added by Discern Expert. Performed By: #### 1 8252813, 2495544, 1118097, 0448514, 881770223, 6624871, 2662261 ####[place] [address] [place] [address] Eosinophils/Leukocyte s Auto Pure number fraction (Bld) 0.1 E9/L Normal 0.0-0.5 [facility] Comment on above: Order Comment: Order Added by Discern Expert. Performed By: #### 1 4279504, 0428822, 9007099, 1905917, 158607263, 5360132, 8041436 ####[place] [address] [place] [address] Lymphocytes/100 WBC Auto (Bld) 14.2 % Normal 14.0-50.0 [facility] Comment on above: Order Comment: Order Added by Tony Expert. Performed By: #### 1 9148478, 8943066, 4737174, 8319505, 164748762, 3507904, 7787722 ####[place] [address] [place] [address] Lymphocytes/Leukocyte s Auto Pure number fraction (Bld) 1.4 E9/L Normal 1.0-4.0 [facility] Comment on above: Order Comment: Order Added by Discern Expert. Performed By: #### 1 1421218, 2048209, 0761026, 5337523, 146704098, 2194414, 0656075 ####[place] [address] [place] [address] Monocytes/100 WBC Auto (Bld) 12.3 % Normal 4.0-14.0 [facility] Comment on above: Order Comment: Order Added by Tony Expert. Performed By: #### 1 9476414, 7534051, 7058355, 9463337, 223777378, 8461539, 7334068 ####[facility] [address] [place] [address] Monocytes/Leukocytes Auto Pure number fraction (Bld) 1.2 E9/L High 0.2-1.0 [facility] Comment on above: Order Comment: Order Added by Discern Expert. Performed By: #### 1 1110968, 7619147, 4193512, 4679443, 360828630, 8433321, 6835595 ####[facility] [address] [place] [address] Neutrophils/100 WBC Auto (Bld) 72.5 % Normal 36.0-75.0 [facility] Comment on above: Order Comment: Order Added by Discern Expert. Performed By: #### 1 3888521, 1362127, 8629600, 1309785, 796919359, 3012231, 6408150 ####[place] [address] [place] [address] Neutrophils/Leukocyte s Auto Pure number fraction (Bld) 7.3 E9/L Normal 2.0-7.5 [facility] Comment on above: Order Comment: Order Added by Discern Expert. Performed By: #### 1 1429539, 4787130, 8826112, 1407676, 359248664, 8133225, 3582104 ####[place] [address] [place] [address] BUNon 07-13-2018 Urea nitrogen mass conc 14 mg/dL Normal 5-21 [facility] Comment on above: Performed By: #### 1 5832962, 4552323, 1747705, 0232754, 093267011, 9405929, 6897431 ####[facility] [address] [place] [address] CBC w/ Auto Diffon 8 Erythrocyte distribution width Auto Ratio (RBC) 14.2 % Normal 10.9-14.2 [facility] Comment on above: Performed By: #### 1 2024462, 5808132, 5175926, 8761049, 937633718, 5274275, 4274902 ####[facility] [address] [place] [address] Hematocrit Auto Volume Fraction (Bld) 33.8 % Low 34.0-46.0 [facility] Comment on above: Performed By: #### 1 2741860, 4596794, 2549091, 2400859, 386911542, 5646389, 7383506 ####[place] [address] [place] [address] Hemoglobin mass conc (Bld) 11.5 g/dL Low 12.0-16.0 [facility] Comment on above: Performed By: #### 1 3047772, 9824191, 5261514, 6656346, 600847026, 3404016, 6368781 ####[place] [address] [place] [address] MCH Auto Entitic mass (RBC) 28.4 pg Normal 27.0-34.0 [facility] Comment on above: Performed By: #### 1 5665755, 9248489, 1668020, 4643973, 156316576, 4702783, 7225219 ####[place] [address] MCHC Auto mass conc (RBC) 34.0 g/dL Normal 31.4-39.3 [facility] Comment on above: Performed By: #### 1 7188454, 2489275, 5974431, 5729954, 149280674, 0371128, 1695742 ####[place] [address] MCV Auto Entitic volume (RBC) 83.3 fL Normal 80.0-100.0 [facility] Comment on above: Performed By: #### 1 4959884, 4488191, 3480658, 0782230, 300364999, 8872052, 6118193 ####[place] [address] [place] [address] Platelet mean volume Auto Entitic volume (Bld) 8.6 fL Normal 6.4-10.8 [facility] Comment on above: Performed By: #### 1 0473166, 9715063, 6071549, 0641071, 256506133, 0844701, 2594740 ####[facility] [address] [place] [address] Platelets Auto #/vol (Bld) 260.0 E9/L Normal 150.0-500. 0 [facility] Comment on above: Performed By: #### 1 6236277, 0407041, 1705138, 5567040, 566842173, 2301605, 5281664 ####[facility] [address] [place] [address] RBC Auto #/vol (Bld) 4.0 E12/L Low 4.3-5.9 [facility] Comment on above: Performed By: #### 1 0742248, 0021398, 8791482, 7081873, 585321926, 5262926, 2351476 ####[facility] [address] [place] [address] WBC corrected for nucl RBC Auto #/vol (Bld) 10.1 E9/L Normal 4.0-11.0 [facility] Comment on above: Performed By: #### 1 8097934, 2407790, 0520776, 5865903, 302909281, 3298779, 6442662 ####[facility] [address] [place] [address] Creatinineon 07-13-2018 Creatinine mass conc 0.8 mg/dL Normal 0.5-1.3 [facility] Comment on above: Performed By: #### 1 4396377, 4931850, 9527365, 8698396, 423522462, 2101050, 8278943 ####[facility] [address] [place] [address] Interdisciplinary Note - Hubert e Manageron 07-13-2018 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 PCP verified, and insurance information verified. DME discussed.Contact information provided and white board updated. Family present at this time, Pt previously rounded with Trupti RAM and DR. Pruett. pt is aware of anticiapted DC home today. Pt is set up with [facility] for DC. Dneies any further DC needs or concerns. Normal [facility] Interdisciplinary Note - Leann n 07-13-2018 Interdisciplinary Note - OT OT elias completed this date. Reviewed TKA precautions, adaptive [...] OT is planned, pt is participating in [id number] program and will have PT at home per program. Normal [facility] Lyteson 07-13-2018 Anion gap 3 molar conc 11 mmol/L Normal 6-16 [facility] Comment on above: Performed By: #### 1 1418366, 2939653, 6741149, 7066678, 928859835, 0283000, 6261709 ####[facility] [address] [place] [address] Chloride molar conc 95 mmol/L Low 101-111 [facility] [place] [facility] Comment on above: Performed By: #### 1 3314057, 3973217, 7483933, 1520538, 026759699, 3608886, 9409362 ####[facility] [address] [place] [address] CO2 molar conc 29 mmol/L Normal 21-31 [facility] Comment on above: Performed By: #### 1 9483825, 7173601, 7340134, 0558963, 846221417, 9286273, 7817888 ####[facility] [address] [place] [address] Potassium molar conc 4.0 mmol/L Normal 3.5-5.3 [facility] Comment on above: Performed By: #### 1 0480905, 4586522, 7517726, 7593173, 457583759, 1230529, 0827084 ####[facility] [address] [place] [address] Sodium molar conc 131 mmol/L Low 135-145 [facility] Comment on above: Performed By: #### 1 5651083, 7236831, 7728961, 8185527, 473456636, 2119839, 2040978 ####[facility] [address] [place] [address] Operative Reporton 8 Operative Report Date of Surgery: 07/12/2018SURGEON: Abrahan Pruett D.O.PREOPERATIVE DIAGNOSES:1. Severe degenerative joint disease, right [...] multiple injections and joint fluid therapy. X-raysdemonstrate hnmc-rn-ioyd medial joint space loss. Please refer to theadmitting History and Physical for further details.COMPONENTS: [place] Triathlon size 5 femur, size 5 tibia, [...] postoperative x-rays are satisfactory.Abrahan Pruett D.O.glsDictated: 07/12/2018 #[id number]: 07/13/2018 #[id number]: Abrahan Pruett D.O. [facility] Comment on above: Result Comment: Elec [...] prophylaxis DVTp -Deferred to surgical services - doreenxtra -SCDs, early ambulation S/P knee surgery Orders: [...] made to ensure accuracy, however, inadvertently computerized wind up operator mistakes may be present.Subjective Patient states that [...] Lymph Auto: 14.2 % (07/13/18 05:29:00 EST) Norman Auto: 12.3 % (07/13/18 05:29:00 EST) Eos Auto: 0.7 % (07/13/18 05:29:00 EST) Basophil Auto: 0.3 % (07/13/18 05:29:00 EST) Neutro Absolute: 7.3 E9/L (07/13/18 05:29:00 EST) Lymph Absolute: 1.4 E9/L (07/13/18 05:29:00 EST) Norman Absolute: 1.2 E9/L High (07/13/18 05:29:00 EST) [...] High (07/13/18 08:03:00 EST) POC Device SN: [id number] (07/13/18 08:03:00 EST) POC Username: GALDINO SONI [...] 8% Susp-Oral, 30 mL, Oral, BID, PRN Lynco 5/325 Tab, 2 tab(s), Oral, q4hr, PRN Lynco 5/325 Tab, 1 tab(s), Oral, q4hr, PRN [...] MDI, 2 puff(s), Inhalation, QID, PRN Normal [facility] Comment on above: Result Comment: Elec tronically Signed By: Trupti SCHMIDT\.br\Date and Time Signed: 07/13/18 10:54 EST\.br\Electronically Co-Signed By: Suzy LEO MD\.br\Date and Time Co-Signed: 07/13/18 11:23 EST eGFRon 07-13-2018 GFR/1.73 sq M predicted among blacks MDRD vol rate/area (S/P/Bld) mL/min/{1.73_m2} Normal >=59 [facility] Comment on above: Order Comment: Order added by Discern Expert. Result Comment: eGFR is race adjusted. AA=. Performed By: #### 1 7239512, 2709014, 6501514, 4901432, 008277755, 1069780, 0838924 ####[facility] [address] [place] [address] GFR/1.73 sq M predicted among non-blacks MDRD vol rate/area (S/P/Bld) mL/min/{1.73_m2} Normal >=59 [facility] Comment on above: Order Comment: Order added by Discern Expert. Result Comment: Career Professional elin kidney disease could be indicated at eGFR's of less than 60 mL/min/1.73m2. Kidney failure is indicated at less than 15 mL/min/1.73m2. Performed By: #### 1 [id number], 8104701, 9168092, 9763093, 144683691, 4156028, 6708347 ####[facility] [address] [place] [address] ABO/Rhon 07-12-2018 ABO/Rh Positive Invalid Interpretation Code [facility] Comment on above: Performed By: #### 1 [id number], 2259282, 50536281, 13176257 ####[facility] [address] [place] [address] ABO/Rh History Checkon 07-12 ABO/Rh History Check Verified Hx Blood Type Normal [facility] Comment on above: Performed By: #### 1 [id number], 4767344, 76827186, 42303892 ####[facility] [address] [place] [address] ABSCon 07-12-2018 ABSC Gel Interp Negative Normal [facility] Comment on above: Performed By: #### 1 1321496, 9736022, 16626981, 39895152 ####[facility] [address] [place] [address] Blood Bank ID#on 07-12-2018 BBID# [id number] Invalid Interpretation Code [facility] Comment on above: Performed By: #### 1 4897514, 8672251, 27440245, 44689648 ####[facility] [address] [place] [address] Consultation Noteon 07-12-20 Consultation Note Chief Complaint [...] made to ensure accuracy, however, inadvertently computerized wind up operator mistakes may be present.Attestation Case reviewed and [...] 8% Susp-Oral, 30 mL, Oral, BID, PRN Lynco 5/325 Tab, 2 tab(s), Oral, q4hr, PRN Lynco 5/325 Tab, 1 tab(s), Oral, q4hr, PRN [...] High (07/12/18 11:53:00 EST) POC Device SN: [id number] (07/12/18 11:53:00 EST) POC Username: POC Username [...] placement. Signed By: Jammie CASTILLO, Issa Bonds [facility] Comment on above: Result Comment: Elec tronically Signed By: Trupti SCHMIDT\.br\Date and Time Signed: 07/12/18 12:46 EST\.br\Electronically Co-Signed By: Suzy LEO MD\.br\Date and Time Co-Signed: 07/12/18 13:05 EST Interdisciplinary Note - Hubert e Manageron 07-12-2018 INR Coag RelTime (Bld) Spokewith patient, no family in room. discussed with patient that I spoke with Xiomara Albright and her insurance does not cover 360 program and will need [facility] [place] [place] [facility] at discharge. Pt is agreeable with this. Verified PCP and insurance, discussed INPT status. Pt denies any questions or concerns about dc plans. Whiteboard updated. Normal [facility] Interdisciplinary Note - PTo n 07-12-2018 Interdisciplinary Note - PT PT Evaluation completed with an AM PAC score of 17/24. Pt performing bed mobility with SBA and transfers with CGA. Pt was able to ambulate 65 feet with FWW with CGA. Will follow daily. Please see PT treatment note for further recommendations Normal [facility] Main OR PACU I Recordon 06-29 Main OR PACU I Record PACU Phase I Docum ent Type FT Summary Primary Physician: Abrahan Pruett DO Finalized Date/Time: 07/12/18 12:16:59 Pt. Name: MAVIS PICKARD/Sex: 1960 Female Med Rec #: [id number] Physician: Abrahan Pruett DO Financial #: [id number] Pt. Type: I Room/Bed: [facility]/ Admit/Disch: 07/12/18 05:38:00 - Institution: Case Times [...] I Outcomes Met? Yes Last Modified By: Clementina Wilks RN 07/12/18 12:16:50 Post-Care Text: The patient demonstrates [...] By: Clementina Wilks RN 07/12/18 12:16 Normal [facility] Main OR Preoperative Recordo n 07-12-2018 Main OR Preoperative Record PreOp Document Type FT Summary Primary Physician: Abrahan Pruett DO Finalized Date/Time: 07/12/18 08:26:12 Pt. Name: NEERAJ MAVISSAADIA Jhaveri/Sex: 1960 Female Med Rec #: [id number] Physician: Abrahan Pruett DO Financial #: [id number] Pt. Type: A Room/Bed: [place] [address] Admit/Disch: 07/12/18 05:38:12 - Institution: Case Times [...] Signed By: Latrice Harrington RN 07/12/18 08:26 Normal [facility] Operative Reporton --201 8 Operative Report Date of Surgery: 07/12/2018SURGEON: Yoni Nloand Jr., D.O.PREOPERATIVE DIAGNOSIS: Postoperative pain control requested [...] the proposed procedure.Yoni Noland Jr., D.O.glsDictated: 07/12/2018 #[id number]: 07/12/2018 #[id number]: Yoni Noland Jr., D.O. [facility] Comment on above: Result Comment: Elec tronically Signed By: Yoni Noland JR, DO\Date and Time Signed: 07/12/18 16:17 EST Patient Education - Texton 1 09-12-2017 Patient Education - Text Abrahan Pruett D.O.[address] [id number] ATIVE TOTAL KNEE ARTHROPLASTY HOME DISCHARGE INSTRUCTIONSINCISION [...] will continue at home, possible with the property management assistant of Home Health Physical Therapy or [...] too soon, you are considered an impaired chair car driver, and this could be a problem. It is therefore advised not to drive until after your first office visit following surgeryFOLLOW-UP OFFICE VISIT: Alina Pruett D.O.Revised: 2010 [facility] Progress Note-Physicianon Protein mass conc Patient: [...] [F] 0.4 mg 0.2 mL, IV Push, u1ojtqhahjtphtmcg 25 mg/mL Inj [F] 12.5 mg 0.5 mL, IV Push, q2min Problem list: All ProblemsDiabetes mellitus, insulin dependent (IDDM), controlled / SNOMED CT 073731335 / ConfirmedAsthma / SNOMED CT 096697846 / ConfirmedLocalized osteoarthritis of knee / SNOMED CT 241219774 / Confirmed, Active Problems (3)Asthma Diabetes mellitus, insulin dependent (IDDM), controlled Localized osteoarthritis of knee Histories Past Medical History: No active or resolved past medical history items have been selected or recorded. Family History: HypothyroidismSisterPrimar y malignant neoplasm of lungMotherPrimary malignant neoplasm of female genital organMotherDiabetes mellitus type 2Father Procedure history: Endometrial ablation ([id number]).achilles tendon lengthening, left. Social History Social & Psychosocial VdbygiMqgcrbh44/03/2018 Risk Assessment: Low RiskSubstance Abuse07/01/2018 Risk Assessment: Denies Substance NqsxaDzoaxrp43/03/2018 Risk Assessment: Denies Tobacco Use. Physical Examination Vital Signs (last 24 hrs) Last Charted Temp Oral 36.4 DegC (JUL 12:)Heart Rate Apical 84 bpm (JUL 12)Resp Rate 16 br/min (JUL 12)SBP H 156 mmHg (JUL 12:)DBP 74 mmHg (JUL 12:)SpO2 97 % (JUL 12) Airway: Normal oral/pharyngeal anatomy.. Respiratory: Adequate air exchange.. Cardiovascular: Adequate perfusion and function. Review / Management Results review: No qualifying data available. Plan [place] [employer] Anesthesiologists (ASA) physical status classification: Class III. Anesthetic Preoperative Plan Anesthesia: Regional (Spinal, ADDUCTOR CANAL BLOCK). Anesthetic plan, risks, benefits, and alternatives discussed with the patient and/or family. Pt. and/or family present and agree to proceed as planned.. Discussed the importance of abstaining from tobacco products, and offered counseling if pt. desired.. Normal [facility] Comment on above: Result Comment: Elec tronically Signed By: Yoni Noland JR, DO.kevan\Date and Time Signed: 07/12/18 08:54 EST UA With Cult Reflexon 2017 Bilirubin Ql (U) Negative Normal Negative [facility] Comment on above: Performed By: #### 1 [id number] ####[facility] [address] [facility] [place] [address] Clarity Nom (U) CLEAR Normal Clear [facility] Comment on above: Performed By: #### 1 1400582 ####[facility] [address] [facility] [address] Color Auto Nom (U) YELLOW Normal Yellow [facility] Comment on above: Performed By: #### 1 7144979 ####[place] [address] [place] [address] Epithelial cells.squamous LM.HPF #/area (Urine sed) 0-2 Normal 0-2 [facility] Comment on above: Performed By: #### 1 7692209 ####[facility] X[address] [facility] [place] [address] Glucose Test strip mass conc (U) Negative Normal Negative [facility] Comment on above: Performed By: #### 1 1387436 ####[facility] N[address] [facility] [address] Hemoglobin Test strip Ql (U) Negative Normal Negative [facility] Comment on above: Performed By: #### 1 2384035 ####[facility] Q[address] [facility] [place] [address] Ketones mass conc (U) Negative Normal Negative Fis [facility] Comment on above: Performed By: #### 1 6338412 ####[facility] Y[address] [facility] [place] [address] [place].plasma/Lithiu m.RBC mass ratio (Bld) 0-3 Normal 0-3 [facility] Comment on above: Performed By: #### 1 5173291 ####[facility] [address] [facility] [place] [address] Mucus LM Ql (Urine sed) TRACE Normal [facility] Comment on above: Performed By: #### 1 1502618 ####[facility] [address] [place] [address] Nitrite Test strip Ql (U) Negative Normal Negative [facility] Comment on above: Performed By: #### 1 5918742 ####[address] [address] pH Test strip (U) 5.5 [pH] Invalid Interpretation Code 5.0-9.0 [facility] Comment on above: Performed By: #### 1 6047104 ####[address] [address] Protein mass conc (U) Negative Normal Negative [facility] Comment on above: Performed By: #### 1 1636947 ####[address] [address] Specific gravity Relative Density (U) >=1.030 Invalid Interpretation Code 1.005-1.03 0 [facility] Comment on above: Performed By: #### 1 4822680 ####[address] [address] UA Spec Desc Salguero Normal [facility] Comment on above: Performed By: #### 1 2134202 ####[address] [address] Urobilinogen Test strip Qn (U) 0.2 {Brittany'U}/dL Normal 0.0-1.0 [facility] Comment on above: Performed By: #### 1 8708389 ####[address] [address] WBC Auto Ql (U) Negative Normal Negative [facility] Comment on above: Performed By: #### 1 9795708 ####[address] [address] WBC LM.HPF #/area (Urine sed) 0-5 Normal 0-5 [facility] Comment on above: Performed By: #### 1 9638747 ####[address] [address] XR Knee 1 or 2 Views Righton [...] Agudelo MD Transcribed by: DENNY Technologist: MARAL [facility] Coding Summary.on 07-03-2018 Coding Summary. CODING DATE: FINAL [facility] STATUS: Home (Routine DC) PAYOR: Fyusion DESCRIPTION 5521 Level 1 Imaging without Contrast [...] Nesbitt CphT Date Saved: 07/02/2018 09:07 am [facility] Coding Summary. CODING DATE: FINAL [facility] STATUS: Home (Routine DC) PAYOR: Sulma APC DESCRIPTION 5521 Level 1 Imaging without [...] Nesbitt CphT Date Saved: 07/02/2018 09:07 am Normal [facility] ABO/Rhon 07-02-2018 ABO/Rh Positive Invalid Interpretation Code [facility] Comment on above: Performed By: #### 2 979190 ####[facility] [address] [place] [address] BUNon 07-02-2018 Urea nitrogen mass conc 12 mg/dL Normal 5-21 [facility] Comment on above: Performed By: #### 1 5019804, 9596678, 9363532, 8585034, 398485840, 5573988, 4242589 ####[facility] [address] [place] [address] CBC w/Indiceson 07-02-2018 Erythrocyte distribution width Auto Ratio (RBC) 14.2 % Normal 10.9-14.2 [facility] Comment on above: Performed By: #### 1 4789888, 9697916, 5963579, 7742562, 524250612, 7475367, 7492413 ####[facility] [address] [place] [address] Hematocrit Auto Volume Fraction (Bld) 38.7 % Normal 34.0-46.0 [facility] Comment on above: Performed By: #### 1 8639195, 7619323, 0844851, 9394338, 972009757, 1652691, 4984563 ####[facility] [address] [place] [address] Hemoglobin mass conc (Bld) 13.0 g/dL Normal 12.0-16.0 [facility] Comment on above: Performed By: #### 1 5725052, 3777102, 0126479, 0538712, 019058067, 2826307, 3039171 ####[facility] [address] [place] [address] MCH Auto Entitic mass (RBC) 27.8 pg Normal 27.0-34.0 [facility] Comment on above: Performed By: #### 1 8379339, 8677467, 6108371, 2862538, 754880834, 7930790, 9742190 ####[place] [address] [place] [address] MCHC Auto mass conc (RBC) 33.5 g/dL Normal 31.4-39.3 [facility] Comment on above: Performed By: #### 1 8727448, 8062568, 5464359, 5089044, 683667965, 7776047, 6024270 ####[place] [address] [place] [address]6557 MCV Auto Entitic volume (RBC) 83.0 fL Normal 80.0-100.0 [facility] Comment on above: Performed By: #### 1 9039693, 5049096, 2938647, 1110403, 703091783, 9946053, 6561870 ####[place] [address] Platelet mean volume Auto Entitic volume (Bld) 9.1 fL Normal 6.4-10.8 [facility] Comment on above: Performed By: #### 1 3986877, 4475462, 5019954, 0381768, 816255114, 9633309, 6466918 ####[address] [address] Platelets Auto #/vol (Bld) 282.0 E9/L Normal 150.0-500. 0 [facility] Comment on above: Performed By: #### 1 6229828, 1674768, 5266331, 5706227, 509779295, 3447151, 5942643 ####[place] [address] [place] [address] RBC Auto #/vol (Bld) 4.7 E12/L Normal 4.3-5.9 [facility] Comment on above: Performed By: #### 1 9400347, 3464270, 7907368, 2244999, 458550467, 1498193, 3985817 ####[facility] [address] [place] [address] WBC corrected for nucl RBC Auto #/vol (Bld) 8.0 E9/L Normal 4.0-11.0 [facility] Comment on above: Performed By: #### 1 5789742, 9928737, 7830818, 1450502, 780257414, 2873442, 4203950 ####[facility] [address] [place] [address] Creatinineon 07-02-2018 Creatinine mass conc 0.7 mg/dL Normal 0.5-1.3 [facility] Comment on above: Performed By: #### 1 1020673, 3372055, 5703997, 1256599, 577103151, 0123466, 0809615 ####[facility] [address] [place] [address] Glu Fastingon 07-02-2018 Glucose mass conc 163 mg/dL High 55-99 [facility] Comment on above: Performed By: #### 1 0859005, 5988085, 2072705, 1706884, 882037097, 8391124, 1596697 ####[facility] [address] [place] [address] RbsU8who 07-02-2018 Hemoglobin A1c/Hemoglobin.total Calculated mass fraction (Bld) 9.3 % High <=5.9 [facility] Comment on above: Performed By: #### 1 5613092, 4066539, 0748415, 9694450, 764444699, 7260462, 8881457 ####[facility] [address] [place] [address] Lyteson 07-02-2018 Anion gap 3 molar conc 11 mmol/L Normal 6-16 [facility] Comment on above: Performed By: #### 1 9226851, 3571331, 3066814, 6520172, 004240455, 4910073, 0503773 ####[facility] [address] [place] [address] Chloride molar conc 99 mmol/L Low 101-111 [facility] Comment on above: Performed By: #### 1 6896797, 3888702, 6041841, 5281946, 513310651, 7869500, 5302087 ####[facility] [address] [place] [address] CO2 molar conc 28 mmol/L Normal 21-31 [facility] Comment on above: Performed By: #### 1 5535620, 3681288, 2989031, 3950015, 759877295, 8186305, 2354807 ####[facility] [address] [place] [address] Potassium molar conc 4.0 mmol/L Normal 3.5-5.3 [facility] Comment on above: Performed By: #### 1 6656193, 0724803, 9368695, 4907689, 307688644, 0334293, 6148942 ####[facility] [address] [place] [address] Sodium molar conc 134 mmol/L Low 135-145 [facility] Comment on above: Performed By: #### 1 3902807, 9722552, 1468567, 8108778, 381963073, 9902264, 0582346 ####[facility] [address] [place] [address] UA With Cult Reflexon 2017 Bilirubin Ql (U) Negative Normal Negative [facility] Comment on above: Performed By: #### 1 1311875 ####[facility] [address] [place] [address] Clarity Nom (U) CLEAR Normal Clear [facility] Comment on above: Performed By: #### 1 4571221 ####[place] [place] [address] Color Auto Nom (U) YELLOW Normal Yellow [facility] Comment on above: Performed By: #### 1 6433395 ####[address] [address] Epithelial cells.squamous LM.HPF #/area (Urine sed) 0-2 Normal 0-2 [facility] Comment on above: Performed By: #### 1 8007411 ####[facility] [address] [place] [address] Glucose Test strip mass conc (U) Negative Normal Negative [facility] Comment on above: Performed By: #### 1 6970802 ####[facility] [address] [place] [address] Hemoglobin Test strip Ql (U) Negative Normal Negative [facility] Comment on above: Performed By: #### 1 7556574 ####[facility] [address] [place] [address] Ketones mass conc (U) Negative Normal Negative [facility] Comment on above: Performed By: #### 1 0378317 ####[facility] [address] [place] [address] [place].plasma/Lithiu m.RBC mass ratio (Bld) 0-3 Normal 0-3 [facility] Comment on above: Performed By: #### 1 7028918 ####[facility] [address] [place] [address] Mucus LM Ql (Urine sed) TRACE Normal [facility] Comment on above: Performed By: #### 1 9735709 ####[facility] [address] [place] [address] Nitrite Test strip Ql (U) Negative Normal Negative [facility] Comment on above: Performed By: #### 1 2116672 ####[facility] [address] [place] [address] pH Test strip (U) 7.0 [pH] Invalid Interpretation Code 5.0-9.0 [facility] Comment on above: Performed By: #### 1 4884379 ####[facility] [address] [place] [address] Protein mass conc (U) Negative Normal Negative [facility] Comment on above: Performed By: #### 1 3916928 ####[facility] [address] [place] [address] Specific gravity Relative Density (U) 1.020 Invalid Interpretation Code 1.005-1.03 0 [facility] Comment on above: Performed By: #### 1 6169504 ####[facility] [address] [place] [address] UA Spec Desc Clean Catch Normal [facility] Comment on above: Performed By: #### 1 7475635 ####[facility] [address] [place] [address] Urobilinogen Test strip Qn (U) 0.2 {Brittany'U}/dL Normal 0.0-1.0 [facility] Comment on above: Performed By: #### 1 8168214 ####[facility] [address] [place] [address] WBC Auto Ql (U) Negative Normal Negative [facility] Comment on above: Performed By: #### 1 9767276 ####[address] [address] WBC LM.HPF #/area (Urine sed) 0-5 Normal 0-5 [facility] Comment on above: Performed By: #### 1 2514915 ####[facility] [address] [place] [address] eGFRon 07-02-2018 GFR/1.73 sq M predicted among blacks MDRD vol rate/area (S/P/Bld) mL/min/{1.73_m2} Normal >=59 [facility] Comment on above: Order Comment: Order added by Discern Expert. Result Comment: eGFR is race adjusted. AA=. Performed By: #### 1 6313218, 4534722, 8309001, 8036088, 864721094, 6742808, 8569914 ####[facility] [address] [place] [address] GFR/1.73 sq M predicted among non-blacks MDRD vol rate/area (S/P/Bld) mL/min/{1.73_m2} Normal >=59 [facility] Comment on above: Order Comment: Order added by Discern Expert. Result Comment: Career Professional elin kidney disease could be indicated at eGFR's of less than 60 mL/min/1.73m2. Kidney failure is indicated at less than 15 mL/min/1.73m2. Performed By: #### 1 5937040, 8593266, 6447206, 7957557, 587981767, 0966520, 5638500 ####[facility] [address] [place] [address] XR Chest 2 Viewson 8 XR Chest [...] M.D. Transcribed by: shama Technologist: DARBY Diaz [facility] POINT OF CARE GLUCOSEon 06-30 Glucose mass conc 127 mg/dL Critically high 74-106 [facility] Comment on above: Performed By: #### P OCGLUC ####[facility] [address] [place] [address] Anai XR ANKLE LT 2Von 07-27-2017 XR ANKLE LT 2V [address] [place] [address] Patient: MAVIS PICKARD Exam Date: 07/27/2017DOB: 1960 Gender:F : JUSTINA MILLER Admission #: [id number] : Order #: [id number] HERE TO VIEW EXAM RADIOLOGY REPORT PROCEDURE: [...] 1. Post surgical changes Dictated by: Jeffrey Price M.D. on 07/27/2017 at 14:45 Approved by: Jeffrey Price M.D. on 07/27/2017 at 14:46 Normal [facility] XR ANKLE LT 2V [address] [place] [address] Patient: MAVIS PICKARD Exam Date: 07/27/2017DOB: 1960 Gender:F : JUSTINA MILLER Admission #: [id number] : Order #: [id number] HERE TO VIEW EXAM RADIOLOGY REPORT PROCEDURE: [...] calcification posterior talocalcaneal joint Dictated by: Jeffrey Price M.D. on 07/27/2017 at 14:06 Approved by: Jeffrey Price M.D. on 07/27/2017 at 14:07 Normal [facility] PROF CHEM 8 (BAS METB)on Anion gap 15.6 mmol/L Normal [facility] Comment on above: Performed By: #### B MP ####[facility] [address] [place] [address] BUN/Creatinine Ratio 15.6 mg/mg Normal [facility] Comment on above: Performed By: #### B MP ####[facility] [address] [place], [place] [address]Nvxkyq Anai Calcium 9.4 mg/dL Normal 8.4-10.2 [facility] Comment on above: Performed By: #### B MP ####[facility] [address] [place] [address] Anai Chloride 101 mmol/L Normal 98-107 [facility] Comment on above: Performed By: #### B MP ####[facility] [address] [place] [address]Ger[place] Anai CO2 30.0 mmol/L Normal 22.0-30.0 [facility] Comment on above: Performed By: #### B MP ####[facility] [address] [place] [address] Anai Creatinine 0.82 mg/dL Normal 0.52-1.04 [facility] Comment on above: Performed By: #### B MP ####[facility] [address] [place] [address] Anai eGFR (non-black) mL/min/{1.73_m2} Normal >=60 [facility] Comment on above: Performed By: #### B MP ####[facility] [address] [place], [place] [address]Gerken Anai Glucose mass conc 126 mg/dL Critically high 74-106 [facility] Comment on above: Performed By: #### B MP ####[facility] [address] [place] [address] Anai Potassium molar conc 4.3 mmol/L Normal 3.4-5.0 [facility] Comment on above: Performed By: #### B MP ####[facility] [address] [place] [address] Anai Sodium 142 mmol/L Normal 137-145 [facility] Comment on above: Performed By: #### B MP ####[facility] [address] [place], [place] [address]Gerken Anai Urea nitrogen 13.0 mg/dL Normal 7.0-17.0 [facility] Comment on above: Performed By: #### B MP ####[facility] [address] [address] [place], [place] [id number] Anai GLYCOHEMOGLOBIN A1Con 2016 Glucose mass conc 229 mg/dL Normal [facility] Comment on above: Performed By: #### A 1C ####[facility] Sblhdecgme7926 [address] Anai Hemoglobin A1c/Hemoglobin.total mass fraction (Bld) 9.6 % Critically high <=6.0 [facility] Comment on above: Performed By: #### A 1C ####[facility] Lhxkvmocvh5822 [address] Anai PROF CHEM 8 (BAS METB)on Anion gap 12.2 mmol/L Normal [facility] Comment on above: Performed By: #### B MP ####[facility] [address] [place] [address] Anai BUN/Creatinine Ratio 18.8 mg/mg Normal [facility] Comment on above: Performed By: #### B MP ####[facility] [address] [place] [address] Anai Calcium 9.7 mg/dL Normal 8.4-10.2 [facility] Comment on above: Performed By: #### B MP ####[facility] Ounwlxmgyt2869 [address] Anai Chloride 99 mmol/L Normal 98-107 [facility] Comment on above: Performed By: #### B MP ####[facility] [address] [place] [address] Anai CO2 32.0 mmol/L Critically high 22.0-30.0 [facility] Comment on above: Performed By: #### B MP ####[facility] Pgdhaydoju3909 [address] Anai Creatinine 0.81 mg/dL Normal 0.52-1.04 [facility] Comment on above: Performed By: #### B MP ####[facility] Lmvhtdupyr3416 [address] Anai eGFR (non-black) mL/min/{1.73_m2} Normal >=60 [facility] Comment on above: Performed By: #### B MP ####[facility] Iykvsunflh3496 [place], [place] [address]Bgsfua Anai Glucose mass conc 126 mg/dL Critically high 74-106 [facility] Comment on above: Performed By: #### B MP ####[facility] Vagiyppefz1928 [place], [place] [address] Anai Potassium molar conc 4.1 mmol/L Normal 3.4-5.0 [facility] Comment on above: Performed By: #### B MP ####[facility] Ldsajaqtyi8845 [place], [place] [address]Ugbqgi Anai Sodium 140 mmol/L Normal 137-145 [facility] Comment on above: Performed By: #### B MP ####[facility] Mpszwvrsog2057 [place], [place] [address]Lvxjnv Anai Urea nitrogen 15.0 mg/dL Normal 7.0-17.0 [facility] Comment on above: Performed By: #### B MP ####[facility] Rbqthtqgjc2372 [place], [place] [address] ANKLE LT WO CONon 0[address] CT ANKLE LT WO CON [address] [place] [address] Patient: MAVIS PICKARD Exam Date: 03/07/2017DOB: 1960 Gender:F : JUSTINA MILLER Admission #: [id number] : DR RASHAD TERAN Order #: [id number] HERE TO VIEW EXAM RADIOLOGY REPORT PROCEDURE: [...] tibiotalar joint as described Dictated by: Jeffrey Price M.D. on 03/07/2017 at 10:28 Approved by: Jeffrey Price M.D. on 03/07/2017 at 10:32 Normal [facility] Vital Signs Date Time Vital Sign Value Performing Clinician Facility 06-14-2023 08:30-0500 Body height 170.18 cm Rashad Mast Other [facility] Other 06-14-2023 08:30-0500 Body mass index (BMI) [Ratio] 36.18 kg/m2 Rashad Mast Other [facility] Other 06-14-2023 08:30-0500 Body temperature 97.6 [degF] Rashad Mast Other [facility] Other 06-14-2023 08:30-0500 Body weight 104.78 kg Rashad Mast Other [facility] Other 06-14-2023 08:30-0500 Diastolic blood pressure 78 mm[Hg] Rashad Mast Other [facility] Other 06-14-2023 08:30-0500 Respiratory rate 18 /min Rashad Mast Other [facility] Other 06-14-2023 08:30-0500 SaO2% (BldA) [Mass fraction] 96 % Rashad Mast Other [facility] Other 06-14-2023 08:30-0500 Systolic blood pressure 124 mm[Hg] Rashad Mast Other [facility] Other 06-03-2023 01:33-0400 Diastolic blood pressure 78 mm[Hg] DO Rashad Mast Work Phone: [facility] 06-03-2023 01:33-0400 Heart rate 75 /min DO Rashad Mast Work Phone: [facility] 06-03-2023 01:33-0400 Respiratory rate 16 /min DO Rashad Mast Work Phone: [facility] 06-03-2023 01:33-0400 SaO2% (BldA) [Mass fraction] 98 % DO Rashad Mast Work Phone: [facility] 06-03-2023 01:33-0400 Systolic blood pressure 140 mm[Hg] DO Rashad Mast Work Phone: [facility] 06-02-2023 21:56-0400 Body height 170.18 cm DO Rashad Mast Work Phone: [facility] 06-02-2023 21:56-0400 Body temperature 98.1 [degF] DO Rashad Mast Work Phone: [facility] 06-02-2023 21:56-0400 Body weight 116.57 kg DO Rashad Mast Work Phone: [facility] 05-21-2023 08:00-0400 Body height 170.18 cm Rashad Mast Other [facility] Other 05-21-2023 08:00-0400 Body mass index (BMI) [Ratio] 40.2 kg/m2 Rashad Mast Other [facility] Other 05-21-2023 08:00-0400 Body temperature 96.5 [degF] Rashad Mast Other [facility] Other 05-21-2023 08:00-0400 Body weight 116.44 kg Rashad Mast Other [facility] Other 05-21-2023 08:00-0400 Diastolic blood pressure 80 mm[Hg] Rashad Mast Other [facility] Other 05-21-2023 08:00-0400 Respiratory rate 18 /min Rashad Mast Other [facility] Other 05-21-2023 08:00-0400 SaO2% (BldA) [Mass fraction] 97 % Rashad Mast Other [facility] Other 05-21-2023 08:00-0400 Systolic blood pressure 124 mm[Hg] Rashad Mast Other [facility] Other 03-28-2023 08:53-0400 Body height 170.18 cm DO Rashad Mast Work Phone: [facility] 03-28-2023 08:53-0400 Body mass index (BMI) [Ratio] 40.7 kg/m2 DO Rashad Mast Work Phone: [facility] 03-28-2023 08:53-0400 Body weight 117.93 kg DO Rashad Mast Work Phone: [facility] 03-28-2023 08:47-0400 Body temperature 97.7 [degF] DO Rashad Mast Work Phone: [facility] 03-28-2023 08:47-0400 Diastolic blood pressure 83 mm[Hg] DO Rashad Mast Work Phone: [facility] 03-28-2023 08:47-0400 Heart rate 74 /min DO Rashad Mast Work Phone: [facility] 03-28-2023 08:47-0400 Respiratory rate 20 /min DO Rashad Mast Work Phone: [facility] 03-28-2023 08:47-0400 Systolic blood pressure 152 mm[Hg] DO Rashad Mast Work Phone: [facility] 02-26-2023 08:00-0400 Body height 170.18 cm Rashad Mast Other [facility] Other 02-26-2023 08:00-0400 Body mass index (BMI) [Ratio] 41.05 kg/m2 Rashad Mast Other [facility] Other 02-26-2023 08:00-0400 Body weight 118.89 kg Rashad Mast Other [facility] Other 02-26-2023 08:00-0400 Diastolic blood pressure 78 mm[Hg] Rashad Mast Other [facility] Other 02-26-2023 08:00-0400 Respiratory rate 18 /min Rashad Mast Other [facility] Other 02-26-2023 08:00-0400 SaO2% (BldA) [Mass fraction] 97 % Rashad Mast Other [facility] Other 02-26-2023 08:00-0400 Systolic blood pressure 140 mm[Hg] Rashad Mast Other [facility] Other 02-08-2023 10:00-0400 Body height 170.18 cm Rashad Mast Other [facility] Other 02-08-2023 10:00-0400 Body mass index (BMI) [Ratio] 40.91 kg/m2 Rashad Mast Other [facility] Other 02-08-2023 10:00-0400 Body temperature 97.6 [degF] Rashad Mast Other [facility] Other 02-08-2023 10:00-0400 Body weight 118.48 kg Rashad Mast Other [facility] Other 02-08-2023 10:00-0400 Diastolic blood pressure 68 mm[Hg] Rashad Mast Other [facility] Other 02-08-2023 10:00-0400 Respiratory rate 18 /min Rashad Mast Other [facility] Other 02-08-2023 10:00-0400 SaO2% (BldA) [Mass fraction] 98 % Rashad Mast Other [facility] Other 02-08-2023 10:00-0400 Systolic blood pressure 120 mm[Hg] Rashad Mast Other [facility] Other 10-16-2022 09:45-0400 Body height 170.18 cm Rashad Mast Other [facility] Other 10-16-2022 09:45-0400 Body mass index (BMI) [Ratio] 41.06 kg/m2 Rashad Mast Other [facility] Other 10-16-2022 09:45-0400 Body temperature 98.6 [degF] Rashad Mast Other [facility] Other 10-16-2022 09:45-0400 Body weight 118.93 kg Rashad Mast Other [facility] Other 10-16-2022 09:45-0400 Diastolic blood pressure 80 mm[Hg] Rashad Mast Other [facility] Other 10-16-2022 09:45-0400 Respiratory rate 18 /min Rashad Mast Other [facility] Other 10-16-2022 09:45-0400 SaO2% (BldA) [Mass fraction] 99 % Rashad Mast Other [facility] Other 10-16-2022 09:45-0400 Systolic blood pressure 122 mm[Hg] Rashad Mast Other [facility] Other 08-14-2022 09:15-0500 Body height 170.18 cm Rashad Mast Other [facility] Other 08-14-2022 09:15-0500 Body mass index (BMI) [Ratio] 41.22 kg/m2 Rashad Mast Other [facility] Other 08-14-2022 09:15-0500 Body temperature 96.7 [degF] Rashad Mast Other [facility] Other 08-14-2022 09:15-0500 Body weight 119.39 kg Rashad Mast Other [facility] Other 08-14-2022 09:15-0500 Diastolic blood pressure 80 mm[Hg] Rashad Mast Other [facility] Other 08-14-2022 09:15-0500 Respiratory rate 18 /min Rashad Mast Other [facility] Other 08-14-2022 09:15-0500 SaO2% (BldA) [Mass fraction] 96 % Rashad Mast Other [facility] Other 08-14-2022 09:15-0500 Systolic blood pressure 110 mm[Hg] Rashad Mast Other [facility] Other 06-26-2022 09:45-0500 Body height 170.18 cm Rashad Mast Other [facility] Other 06-26-2022 09:45-0500 Body mass index (BMI) [Ratio] 42.33 kg/m2 Rashad Mast Other [facility] Other 06-26-2022 09:45-0500 Body temperature 97.2 [degF] Rashad Mast Other [facility] Other 06-26-2022 09:45-0500 Body weight 122.61 kg Rashad Mast Other [facility] Other 06-26-2022 09:45-0500 Diastolic blood pressure 84 mm[Hg] Rashad Mast Other [facility] Other 06-26-2022 09:45-0500 Respiratory rate 18 /min Rashad Mast Other [facility] Other 06-26-2022 09:45-0500 SaO2% (BldA) [Mass fraction] 97 % Rashad Mast Other [facility] Other 06-26-2022 09:45-0500 Systolic blood pressure 124 mm[Hg] Rashad Mast Other [facility] Other 05-22-2022 11:45-0400 Body height 170.18 cm Rashad Mast Other [facility] Other 05-22-2022 11:45-0400 Body mass index (BMI) [Ratio] 42.66 kg/m2 Rashad Mast Other [facility] Other 05-22-2022 11:45-0400 Body temperature 97 [degF] Rashad Mast Other [facility] Other 05-22-2022 11:45-0400 Body weight 123.56 kg Rashad Mast Other [facility] Other 05-22-2022 11:45-0400 Diastolic blood pressure 76 mm[Hg] Rashad Mast Other [facility] Other 05-22-2022 11:45-0400 Respiratory rate 18 /min Rashad Mast Other [facility] Other 05-22-2022 11:45-0400 SaO2% (BldA) [Mass fraction] 96 % Rashad Mast Other [facility] Other 05-22-2022 11:45-0400 Systolic blood pressure 120 mm[Hg] Rashad Mast Other [facility] Other 03-27-2022 10:30-0400 Body height 170.18 cm Rashad Mast Other [facility] Other 03-27-2022 10:30-0400 Body mass index (BMI) [Ratio] 42.53 kg/m2 Rashad Mast Other [facility] Other 03-27-2022 10:30-0400 Body temperature 98.1 [degF] Rashad Mast Other [facility] Other 03-27-2022 10:30-0400 Body weight 123.2 kg Rashad Mast Other [facility] Other 03-27-2022 10:30-0400 Diastolic blood pressure 80 mm[Hg] Rashad Mast Other [facility] Other 03-27-2022 10:30-0400 Respiratory rate 18 /min Rashad Mast Other [facility] Other 03-27-2022 10:30-0400 SaO2% (BldA) [Mass fraction] 95 % Rashad Mast Other [facility] Other 03-27-2022 10:30-0400 Systolic blood pressure 110 mm[Hg] Rashad Mast Other [facility] Other 03-02-2022 17:15-0400 Body height 170.18 cm Rashad Mast Other [facility] Other 03-02-2022 17:15-0400 Body mass index (BMI) [Ratio] 41.23 kg/m2 Rashad Mast Other [facility] Other 03-02-2022 17:15-0400 Body temperature 97.7 [degF] Rashad Mast Other [facility] Other 03-02-2022 17:15-0400 Body weight 119.43 kg Rashad Mast Other [facility] Other 03-02-2022 17:15-0400 Diastolic blood pressure 80 mm[Hg] Rashad Mast Other [facility] Other 03-02-2022 17:15-0400 Respiratory rate 18 /min Rashad Mast Other [facility] Other 03-02-2022 17:15-0400 SaO2% (BldA) [Mass fraction] 97 % Rashad Mast Other [facility] Other 03-02-2022 17:15-0400 Systolic blood pressure 124 mm[Hg] Rashad Mast Other [facility] Other Encounters Encounter Date Encounter Type Care Provider Facility Start: 08-13-2023 End: 08-13-2023 ambulatory Rashad Mast Other [facility] Other Start: 08-13-2023 Nursing evaluation o f patient and report Rashad Mast [facility] Start: 06-18-2023 End: 06-18-2023 ambulatory BALTAZAR A VISCI Not Available Start: 06-14-2023 End: 06-14-2023 ambulatory Rashad Mast Other [facility] Other Start: 06-14-2023 Office outpatient visit 25 minutes Rashad Mast [facility] Start: 06-14-2023 Telephone encounter Rashad Mast [facility] Start: 06-02-2023 End: 06-03-2023 Emergency department patient visit Rashad Pendleton Facility:[facility] Start: 06-02-2023 End: 06-03-2023 Emergency department patient visit DO Rashad Mast Work Phone: [facility] Work Phone: Start: 05-28-2023 End: 05-28-2023 ambulatory Rashad Mast Other [facility] Other Start: 05-28-2023 Telephone encounter Rashad Mast [facility] [place] Start: 05-21-2023 End: 05-21-2023 ambulatory Rashad Mast Other [facility] Other Start: 05-21-2023 Office outpatient visit 25 minutes Rashad Mast [facility] [place] Start: 03-28-2023 End: 03-28-2023 ambulatory Viki Copsey Facility:[facility] Start: 03-28-2023 End: 03-28-2023 ambulatory DO Rashad Mast Work Phone: [facility] Work Phone: Start: 03-28-2023 End: 03-28-2023 Discharged Recurring DO Rashad Mast Work Phone: [facility] Work Phone: Start: 03-21-2023 End: 03-21-2023 ambulatory Rashad Mast Other [facility] Other Start: 03-21-2023 Telephone encounter Rashad Mast [facility] Start: 02-26-2023 End: 02-26-2023 ambulatory Rashad Mast Other [facility] Other Start: 02-26-2023 Office outpatient visit 15 minutes Rashad Mast [facility] [place] Start: 02-09-2023 End: 02-09-2023 ambulatory Rashad Mast Other [facility] Other Start: 02-09-2023 Telephone encounter Rashad Mast [facility] [place] Start: 02-08-2023 End: 02-08-2023 ambulatory Rashad Mast Other [facility] Other Start: 02-08-2023 Office outpatient visit 25 minutes Rashad Mast [facility] Start: 02-07-2023 End: 02-07-2023 ambulatory Rashad Mast Facility:[facility] Start: 02-07-2023 End: 02-07-2023 ambulatory DO Rashad Mast Work Phone: [facility] Work Phone: Start: 02-07-2023 End: 02-07-2023 Patient encounter procedure DO Rashad Mast Work Phone: [facility] Start: 01-16-2023 End: 01-16-2023 ambulatory Rashad Mast Other [facility] Other Start: 01-16-2023 Telephone encounter Rashad Mast [facility] Start: 12-26-2022 End: 12-26-2022 ambulatory Rashad Mast Other [facility] Other Start: 12-26-2022 Telephone encounter Rashad Mast [facility] Start: 11-22-2022 End: 11-22-2022 ambulatory Rashad Mast Other [facility] Other Start: 11-22-2022 Telephone encounter Rashad Mast [facility] Start: 10-21-2022 End: 10-21-2022 ambulatory Baltazar Visci Facility:[facility] Start: 10-21-2022 End: 10-21-2022 ambulatory DO Rashad Mast Work Phone: [facility] Work Phone: Start: 10-21-2022 End: 10-21-2022 Patient encounter procedure DO Rashad Mast Work Phone: [facility] Work Phone: Start: 10-17-2022 End: 10-17-2022 ambulatory Rashad Mast Other [facility] Other Start: 10-17-2022 Telephone encounter Rashad Mast [facility] Start: 10-16-2022 End: 10-16-2022 ambulatory Rashad Mast Other [facility] Other Start: 10-16-2022 Office outpatient visit 25 minutes Rashad Mast [facility] Start: 10-05-2022 End: 10-05-2022 ambulatory Rashad Mast Other [facility] Other Start: 10-05-2022 Telephone encounter Rashad Mast [facility] Start: 08-14-2022 End: 08-14-2022 ambulatory Rashad Mast Other [facility] Other Start: 08-14-2022 Office outpatient visit 15 minutes Rashad Mast [facility] Start: 08-08-2022 End: 08-08-2022 ambulatory Rashad Mast Other [facility] Other Start: 08-08-2022 Telephone encounter Rashad Mast [facility] Start: 06-26-2022 End: 06-26-2022 ambulatory Rashad Mast Other [facility] Other Start: 06-26-2022 Office outpatient visit 15 minutes Rashad Mast [facility] Start: 06-02-2022 End: 06-02-2022 ambulatory Rashad Mast Other [facility] Other Start: 06-02-2022 Telephone encounter Rashad Mast [facility] Start: 05-22-2022 End: 05-22-2022 ambulatory Rashad Mast Other [facility] Other Start: 05-22-2022 Office outpatient visit 25 minutes Rashad Mast [facility] Start: 03-27-2022 End: 03-27-2022 ambulatory Rashad Mast Other [facility] Other Start: 03-27-2022 Office outpatient visit 25 minutes Rashad Mast [facility] Start: 03-06-2022 End: 03-06-2022 ambulatory Rashad Mast Other [facility] Other Start: 03-06-2022 Telephone encounter Rashad Mast [facility] Start: 03-02-2022 End: 03-02-2022 ambulatory Rashad Mast Other [facility] Other Start: 03-02-2022 Office outpatient visit 25 minutes Rashad Mast [facility] Start: 02-22-2022 End: 02-22-2022 ambulatory Rashad Mast Other [facility] Other Start: 02-22-2022 Telephone encounter Rashad Mast [facility] Start: 02-02-2022 End: 02-02-2022 ambulatory Rashad Mast Other [facility] Other Start: 02-02-2022 Telephone encounter Rashad Mast [facility] Start: 01-18-2022 End: 01-18-2022 ambulatory Rashad Mast Other [facility] Other Start: 01-18-2022 Telephone encounter Rashad Mast [facility] Start: 12-01-2021 End: 12-01-2021 ambulatory Rashad Mast Other [facility] Other Start: 12-01-2021 Telephone encounter Rashad Mast [facility] Start: 11-22-2021 End: 11-22-2021 ambulatory Rashad Mast Other [facility] Other Start: 11-22-2021 Telephone encounter Rashad Mast [facility] Start: 06-08-2021 End: 06-08-2021 ambulatory Rashad Mast Other [facility] Other Start: 06-08-2021 Telephone encounter Rashad Mast [facility] Start: 05-18-2021 Telephone encounter Rashad Mast [facility] Start: 07-15-2018 End: 07-26-2018 Patient encounter procedure RASHAD MAST Facility:[facility] [place] [place] Start: 07-12-2018 End: 07-13-2018 Evaluation and management of inpatient Abrahan Pruett Facility:[facility] [place] [place] Start: 07-02-2018 End: 07-03-2018 Patient encounter procedure Abrahan Pruett Facility:[facility] [place] [place] Start: 07-27-2017 End: 07-27-2017 Ambulatory [facility] Facility:[facility] Start: 07-17-2017 End: 07-18-2017 Ambulatory [facility] Facility:[facility] Start: 05-04-2017 Ambulatory [facility] Facili ty:[facility]1 Start: 04-18-2017 End: 04-19-2017 Ambulatory [facility] Facility:[facility] Start: 03-07-2017 End: 03-08-2017 Ambulatory [facility] Facility:[facility] Procedures Date Procedure Procedure Detail Performing Clinician Start: 06-02-2023 SARS-CoV-2, Influenz a & RSV (PCR) DO Rashad Mast Work Phone: Plan of Treatment Date Care Activity Detail Author Start: 06-02-2023 Plain chest X-ray XR chest 2V* [facility] Start: 06-02-2023 XR Chest 2 Views [facility] Start: 10-21-2022 Screening mammograph y of bilateral breasts MM screening mammo BI w/CAD [facility] Patient Education Bronchitis, Adult ED [facility] Work Phone: Patient referral [facility] Work Phone: Immunizations Immunization Date Immunization Notes Care Provider Fa dorothy 08-13-2023 zoster vaccine recombinant Rashad Mast Other [facility] Other 05-21-2023 zoster vaccine recombinant Rashad Mast Other [facility] Other 05-21-2023 influenza, injectabl e, quadrivalent, preservative free Rashad Mast Other [facility] Other 05-25-2022 COVID-19 Pfizer (bivalent) Rashad Mast Other [facility] Other 05-25-2022 influenza, injectabl e, quadrivalent, preservative free Rashad Mast Other [facility] Other 03-22-2020 influenza, seasonal, injectable Rashad Mast Other [facility] Other 05-07-2019 influenza, seasonal, injectable Rashad Mast Other [facility] Other 09-29-2016 Toradol per 15 mg Rashad Mast Other [facility] Other 06-14-2016 influenza, injectabl e, quadrivalent, contains preservative Rashad Mast Other [facility] Other 05-02-2015 Toradol per 15 mg Rashad Mast Other [facility] Other Payers Date Payer Category Payer Self-pay [id number] 1960 Unknown [id number] 2.16.84 [id number] 1960 Unknown [id number] 2.16.84 [id number] 1960 Unknown [id number] 2.16.84 [id number] 1960 Unknown [id number] 1957 Unknown [id number] Unknown [id number] 2.16.8 [id number] Unknown [id number] 2.16.8 [id number] Unknown [id number] 2.16.8 [id number] Unknown [id number] 2.16.8 [id number] Social History Date Type Detail Facility Unknown if ever smoked [facility] Other Sex Assigned At Sex Assigned At Bir th [facility] Other Start: 03-19-2021 End: 06-02-2023 Tobacco smoking status NHIS Never smoked tobacco (finding) [facility] Start: 1960 Sex Assigned At Female F [facility] Medical Equipment Procedure Code Equipment Code Equipment [...] how she does. Call if problems persist [facility] Other 10-30-2023 Evaluation note* Encounter Date Diagnosis Assessment Notes Treatment Notes Treatment Clinical Notes Apr, Unspecified asthma, uncomplicated (ICD-10 - J45.909) [facility] Other 10-23-2023 Evaluation note* Encounter Date Diagnosis [...] - J45.909) Currently quiet, continue present meds [facility] Other 08-30-2023 Progress note Author Viki Mcnulty [facility] March 28, 2023 8:53am Note Date/Time March 28, 2023 8: 53am [facility] [address] [place] [address] Wound Center Provider Note Signed Patient: Mavis Pickard MR#: [id number] : 1960 Acct:[id number] Age/Sex: 63 / F Copies to: Jeffry/PreceptorRashadEvelia Mcnulty, BEATER OUT~ HPI Date of Visit Date of Visit: Date of Service: 03/28/2023 Time of Service: 08:50 Narrative HPI: 02/28/23 Mavis is a 62-year-old female presenting to [facility] wound care program for an initial [...] she has agreed to a referral to [facility] for her varicose veins- she had seen [facility] years ago and was told more or less that nothing could be done for the veins at that time. She does wear compression socks faithfully. 03/21/23 much improved, saw [facility], is waiting on insurance [...] 2022 Right leg ulcer Mode of Arrival/ Member Service Representative: Personal vehicle Lives with:: Spouse Appetite Description: Within Normal Limits Who helps w/ dressing change?: Wound Care Dept Smoking Status: Never smoker [facility] Medical History (Updated 03/21/23 @ 09:33 by [...] Stasis Ulcer Thickness: Skin Breakdown Bed Appearance: Douglass Percent of Wound Bed Granulated/Red: 100 Percent [...] 12 Dictated By: Viki Mcnulty APRN DD/ Signed By: <Electronically signed by ABRIL Mcnulty> 03/28/23 0853 [facility] Work Phone: 1(165) 133-588608-23-2023 Progress note Author Viki Mcnulty [facility] March 21, 2023 9:34am Note Date/Time March 21, 2023 9: 34am [facility] [address] [place] [address] Wound Center Provider Note Signed Patient: Mavis Pickard MR#: [id number] : 1960 Acct:[id number] Age/Sex: 62 / F Copies to: Jeffry/PreceptorRashad DO-S Viki Mcnulty APRN~ HPI Date of Visit Date of Visit: Date of Service: 03/21/2023 Time of Service: 09:32 Narrative HPI: 02/28/23 Mavis is a 62-year-old female presenting to [facility] wound care program for an initial [...] she has agreed to a referral to [facility] for her varicose veins- she had seen [facility] years ago and was told more or less that nothing could be done for the veins at that time. She does wear compression socks faithfully. 03/21/23 much improved, saw [facility] ar[facility], is waiting on insurance approval, orders changed today to collagen powder and unna wrap, 1 week appt Subjective Pain Right Lower Leg: Pain Description: Intermittent and Burning Pain Intensity: 0 Wound/Ulcer History When did wound start?: December 2022 Right leg ulcer Mode of Arrival/ Member Service Representative: Personal vehicle Lives with:: Spouse Appetite Description: Within Normal Limits Who helps w/ dressing change?: Wound Care Dept Smoking Status: Never smoker [facility] Medical History (Updated 03/21/23 @ 09:33 by Viki cMnulty APRN) Asthma Diabetes Leg edema, right Ulcer [...] 14 Dictated By: Viki Mcnulty APRN DD/ 0932 Signed By: <Electronically signed by ABRIL Mcnulty> 03/21/23 0934 [facility] Work Phone: 1(766) 874-839108-02-2023 Progress note Author Viki Mcnulty [facility] February 28, 2023 11:36am Note Date/Time February 28, 2023 11: 36am [facility] [address] [place] [address] Wound Center Provider Note Signed Patient: Mavis Pickard MR#: [id number] : 1960 Acct:[id number] Age/Sex: 62 / F Copies to: Jeffry/PreceptorRashadFHEvelia Mcnulty APRN~ HPI Date of Visit Date of Visit: Date of Service: 02/28/2023 Time of Service: 11:28 Narrative HPI: 02/28/23 Mavis is a 62-year-old female presenting to [facility] wound care program for an initial [...] she has agreed to a referral to [facility] for her varicose veins- she had seen [facility] years ago and was told more or less that nothing could be done for the veins at that time. She does wear compression socks faithfully. Subjective Pain Right Lower Leg: Pain Description: Intermittent and Burning Wound/Ulcer History When did wound start?: December 2022 Right leg ulcer Mode of Arrival/ Member Service Representative: Personal vehicle Lives with:: Spouse Appetite Description: Within Normal Limits Who helps w/ dressing change?: Wound Care Dept Smoking Status: Never smoker [facility] Medical History (Updated 02/28/23 @ 11:34 by [...] 0.1 CM Sq: 1.000 Surrounding Tissue Appearance: Douglass and Hyperpigmented Surrounding Tissue Temp: Warm Drainage [...] <Electronically signed by ABRIL Mcnulty> 02/28/23 1136 [facility] Work Phone: [phone]) 749-789107-31-2023 Evaluation note* Encounter Date Diagnosis Assessment Notes [...] nasal spray and see if that helps [employer] Other 07-13-2023 Evaluation note* Encounter Date Diagnosis [...] is doing. She is trying to get [facility] paperwork completed so that she does [...] me in the future if problems arise [employer] Other 03-20-2023 Evaluation note* Encounter Date Diagnosis [...] now, warning signs reviewed. Call if problems [employer] Other 01-16-2023 Evaluation note* Encounter Date Diagnosis [...] Recheck in 2 months, sooner if problems [employer] Other 01-10-2023 Evaluation note* Encounter Date Diagnosis Assessment Notes Treatment Notes Treatment Clinical Notes Jul, Type 2 diabetes mellitus without complications (ICD-10 - E11.9) [employer] Other 11-28-2022 Evaluation note* Encounter Date Diagnosis [...] for now. Keep working on weight loss. [employer] Other 11-04-2022 Evaluation note* Encounter Date Diagnosis Assessment Notes Treatment Notes Treatment Clinical Notes May, Type 2 diabetes mellitus without complications (ICD-10 - E11.9) [employer] Other 10-24-2022 Evaluation note* Encounter Date Diagnosis [...] Continue present Rx, keep seeing the counselor. [employer] Other 08-29-2022 Evaluation note* Encounter Date Diagnosis [...] at next visit. Continue seeing the counselor [employer] Other 08-04-2022 Evaluation note* Encounter Date Diagnosis [...] this in the long run or not. [employer] Other 06-22-2022 Evaluation note* Encounter Date Diagnosis Assessment Notes Treatment Notes Treatment Clinical Notes Dec, Type 2 diabetes mellitus without complications (ICD-10 - E11.9) [employer] Other 10-20-2021 Evaluation note* Encounter Date Diagnosis Assessment Notes Treatment Notes Treatment Clinical Notes Apr, Type 2 diabetes mellitus without complications (ICD-10 - E11.9) [employer] Other Evaluation noteNo InformationNortHigh Fidelity Other Evaluation noteNo assessment information available [facility] Work Phone: Evaluation noteNortHigh Fidelity Other Evaluation note* Diagnosis Onset Date Resolution Status Diabetes chronic 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 Carolina 2019 Hospitalization History SEE ABOVE [employer] Other History general Narrative - Reported* Type Description Date Medical History diabetes mellitus Medical History asthma Medical History Depression Surgical History knee arthroscopy Surgical History rt ring finger amputation Surgical History BREAST BIOPSY RIGHT -2013 Surgical History RIGHT KNEE REPLACEMENT 06/2018 Surgical History colonoscopy - Dr. Carolina 2015 Hospitalization History SEE ABOVE [employer] Other History general Narrative - ReportedNoHigh Fidelity Other History general Narrative - ReportedNoHigh Fidelity Other Summary Purpose Family History No Family History Records FoundNo Family History Records FoundNo Family History Records FoundNo Family History Records Found Advance Directives Advance Directive Response Recorded Date/ Time Advance [...] Wound of skin (T14.8 XXA) Referral Organization [facility] Family Rebekah Rabago Referring Provider First Name [...] and content) DATE CREATED AUTHOR [facility]22[facility]2018 [facility] DATE CREATED AUTHOR AUTHOR'S ORGANIZ ATION 07/27/2018 [facility] DATE CREATED AUTHOR AUTHOR'S ORGANIZ ATION 06/13/2023 [facility] DATE CREATED AUTHOR AUTHOR'S ORGANIZ ATION 06/19/2023 [facility] EPIC REASON FOR VISIT (unrecogniz ed section and content) Refill/ MetforminRefillNS/CA NCELLED APPTQuestion about booster vacc.refillRefill/LantusRefill7 MTH FOLLOW UPRefill/ Lantus3 week follow up1 month Follow upRefill/ Metformin1 month Follow upRefill/ lancets1 month Follow upnausea2 month Follow uplow BSRefill/ InhalerRefill/ Zofran3 month follow up/ sore on left legrt leg woundRefill/ZofranAWVAsthma flare [facility] Follow up [id number] SHINGLE VACCINE Care Teams (unrecognized sec tion and content) Team Status: Active Member Role Status Dates Rashad Mast , DO Primary Care Provider Active Team Status: Inactive Member Role Status Dates Rashad Mast , DO Primary Care Provider Active Blatazar Strange , DO Attending Provider Active Team Status: Inactive Member Role Status Dates Rashad Mast , DO Primary Care Provider Active Rashad Mast , DO Attending Provider Active Team Status: Inactive Member Role Status Dates Rashad Mast , DO Primary Care Provider Active Viki Mcnulty APRN Attending Provider Active Team Status: Inactive Member [...] BE BASED ON THE PRIMARY CLINICAL RECORDS. [employer] provides no warranty or guarantee of the accuracy or completeness of information in this document.
== END 2023-08-16 09:48 | disposition home or self-care (01) ==
LOC: VC 09:48
PROVIDERS: PCP Radiology Diagnostic Radiology; Visit Provider Radiology Diagnostic Radiology
DX: I80.02 Phlebitis and thrombophlebitis of superficial vessels of left lower extremity (principal)
CPT/HCPCS: 93971; G0463

== ENCOUNTER 2023-09-06 09:49 | Outpatient (OUT) | payer BC, SELFPAY ==
--- NOTE | 2023-09-06 | VEIN_ITS ---
The [address] [address] Patient Name: MAVIS PICKARD MRN: [id number] date: 1960 Sex: F Assigned Patient Location: Current Patient Location: Accession/Order Number: [id number] Exam Date: 09/06/2023 09:59 Report Date: 09/06/2023 10:59 At the request of: JEFFREY REYNA Procedure: VC INJ Foam Sclerosant [employer]US [employer] PROCEDURE: VC INJ Foam Sclerosant [employer]US [employer] COMPARISON: None. HISTORY: Painful varicose veins bilaterally I83.813 Pre-operative Diagnosis: CEAP class C5 venous insufficiency with pain, tenderness, edema and incompetent right saphenous and varicose vein(s), chronic venous insufficiency right leg secondary to venous incompetence Post-operative Diagnosis: CEAP class C5 venous insufficiency with pain, tenderness, edema and incompetent right saphenous and varicose vein(s), chronic venous insufficiency right leg secondary to venous incompetence Procedure Performed: 1. Ultrasound-guided microfoam chemical ablation with Varithenaregistered 2. Intraoperative ultrasound guidance Anesthesia: None Indications for Procedure: 63-year-old female who presents with a long history of lower extremity pain and swelling, needing and a nonhealing venous stasis ulcerations on the right leg. The patient failed conservative medical therapy including medical compression stockings, exercise and analgesics. Prior procedures include endovenous laser ablation and Microfoam chemical ablation. Multiple incompetent varicosities of the right leg. Duplex scan showed reflux and enlarged diameters up to 6 mm. The patient underwent informed consent including management options where the complications of infection, bleeding, pain, and skin injury were discussed. Particular attention was spent discussing thrombus extension and deep vein thrombosis as well as the possibility of pulmonary embolus and treatment with oral or injectable blood thinners. Procedure: The patient walked to the procedure room. All applicable staff donned appropriate apparel. A procedure timeout was performed to confirm correct patient, correct extremity, correct procedure, and correct room set-up including presence of all applicable supplies, devices, and drugs. A duplex ultrasound, performed by myself confirmed the location and incompetence of branch saphenous varicosities and their course was marked on the skin together with the dilated tributaries. The extent of treatment of the vein and the associated varicosities was determined through ultrasound mapping. The skin was prepped and then punctured with a butterfly needle and advanced under ultrasound guidance. The Varithenaregistered canister was activated and the canister was primed and purged as required in the instructions for use. Varithenaregistered was drawn into a sterile syringe. The following injections were made: 6 cc injected into a 4 mm varicose vein right mid anterior lower leg 5 cc injected into a 6 mm varicose vein right distal medial lower leg 4 cc injected into a 6 mm varicose vein in the medial right lower leg Varithenaregistered was slowly administered at 0.5-1.0 cc/second with close observation by ultrasound of its course in the vessels. Total volume utilized was: 15cc. Following administration of Varithenaregistered the leg was elevated and the patient was asked to repeatedly dorsiflex the ankle to limit flow of Varithenaregistered into perforating veins. Once appropriate spasm had been confirmed in the treated veins, the vascular catheter was removed from the leg and light pressure was applied over the puncture site for hemostasis. The common femoral and deep superficial veins were then evaluated for flow and compressibility prior to dressing placement. The lower extremity was kept elevated at 45 degrees above the horizontal and cording material was applied over the saphenous segments and tributaries to allow for eccentric compression over the target vessels including the targeted saphenous vein(s). A multilayer dressing was applied consisting of foam pads, coban and thigh-high 20-30 mm Hg compression elastic support hose were placed on the patient. The leg was lowered only after compression had been applied and the patient was immediately ambulatory. The patient ambulated 10 minutes under supervision and was without apparent concerns at time of release. Post-care instructions include advising patient to keep post-treatment bandages in place and dry for 48 hours, avoid extended periods of inactivity, avoid heavy exercise for one week, wear compression stockings on the treated leg continuously for two weeks, to walk daily for 10 minutes over the next month. The patient was instructed to take an anti-inflammatory medicine as needed and to follow up for color duplex scan of the Saphenous veins, the treated branch saphenous varicosities, the adjacent deep veins, and additional treatment within 7 days. PERSONNEL: Brandt Delacruz RN Electronically authenticated by: JEFFREY REYNA Date: 09/06/2023 10:59
== END 2023-09-06 09:50 | disposition home or self-care (01) ==
LOC: VC 09:54
PROVIDERS: PCP Radiology Diagnostic Radiology; Visit Provider Radiology Diagnostic Radiology
DX: I83.813 Varicose veins of bilateral lower extremities with pain (principal)
CPT/HCPCS: 36466

== ENCOUNTER 2023-09-11 07:27 | Outpatient (OUT) | payer BC, SELFPAY ==
--- NOTE | 2023-09-11 07:27 | VEIN_ITS ---
Patient Name: MAVIS PICKARD MR#: [id number] : 1960 Exam Date: 09/11/2023 Ordering Doctor: DR MAGEN PRICE M.D. RADIOLOGY REPORT PROCEDURE: VC EXT VENOUS RT LMTD COMPARISON: VC EXT VENOUS RT LMTD, 08/03/2023. VC EXT VENOUS RT LMTD, 06/13/2023. INDICATIONS: Phlebitis of superficial vein of rt lower extremity I80.01 TECHNIQUE: Lower extremity tsang scale and Duplex Doppler evaluation of the deep venous system from the inguinal ligament through the calf veins. FINDINGS: REGION: Right lower extremity. THROMBI: Negative for DVT. Varithena induced thrombus visualized at mid/med calf and dist/ant calf. COMPRESSIBILITY: Non-compressible segments corresponding to thrombus FLOW: Areas of no flow corresponding to thrombus OTHER: Multiple varicose veins remain. Largest measures mid/med thigh 4.8mm with 1.0s reflux. CONCLUSION: Post ablation occlusion of treated right leg varicose veins with residual incompetent varicose veins measuring up to 4.8 mm in diameter Dictated by: Magen Price MD on 09/11/2023 at 07:47 Approved by: Magen Price MD on 09/11/2023 at 07:48
--- NOTE | 2023-09-11 07:28 | VEIN_ITS ---
Patient Name: MAVIS PICKARD MR#: [id number] : 1960 Exam Date: 09/11/2023 Ordering Doctor: DR MAGEN PRICE M.D. RADIOLOGY REPORT PROCEDURE: [facility] EST LMTD VEIN CENTER - OFFICE VISIT FOLLOW UP COMPARISON: [facility] EST LMTD, 08/16/2023. [facility] EST LMTD, 08/03/2023. PROGRESS NOTES: The patient reports no significant problems following micro foam chemical ablation of right leg incompetent varicose veins for patient has worn her compression stocking. The patient has not required oral analgesics. The patient has tried exercise to the best of her ability Physical exam demonstrates multiple thrombosed varicose veins. Multiple patent varicose veins are observed. No erythema or warmth to suggest cellulitis or thrombophlebitis. No active ulceration Review of the ultrasound performed the same day demonstrates occlusive thrombus extending throughout the treated vein(s), no deep vein thrombus. Residual incompetent varicose veins are observed. The patient expressed a desire to proceed with treatment of right leg incompetent varicose veins. VEIN/[facility] EST LMTD IMPRESSION: 1. Successful ablation of right leg incompetent varicose veins 2. Persistent right leg incompetent varicose veins. PLAN: Micro foam chemical ablation right leg incompetent varicose veins Nurse notes, history and physical were reviewed and confirmed, see attached forms. The nurse was present throughout the physical exam and consultation Dictated by: Magen Price MD on 09/11/2023 at 07:55 Approved by: Magen Price MD on 09/11/2023 at 08:00
--- OUTSIDE RECORDS SUMMARY | 2023-09-11 07:30 | XMS_ITS | CCD ---
Author Name Unknown Address [address] [place] [address] Organization [facility] Care Team Providers Care [place] Name Role Phone HIGHLANDER, PETER Unavailable Unavailable [...] Care Provider DO Baltazar Strange Attending Provider [phone] Mast, DO Rashad Primary Care Provider Mast, DO Rashad Attending Provider [phone] Mast, DO Rashad Primary Care Provider ABRIL Mcnulty Attending Provider Pendleton, DO Rashad Emergency Provider VISCI, BALTAZAR A Referring Unavailable VISCI, BALTAZAR A Attending Unavailable Visci, Baltazar Attending Unavailable Mast - F[facility], Rashad Primary Care Unavailable Visci, Baltazar Admitting Unavailable Mast - [facility], Rashad Primary Care Unavailable Mast, Rashad Admitting Unavailable Mast, Rashad Attending Unavailable Pendleton, Rashad Admitting Unavailable Pendleton, Rashad Attending Unavailable Mast - [facility], Rashad Primary Care Unavailable Viki Mcnulty Admitting Unavailable Viki Mcnulty Attending Unavailable Mast - [facility], Rashad Primary Care Unavailable Allergies Allergy Classification Reported Allergen(s) Allergy Type Date of Onset Reaction(s) Facility (2 sources) penicillin; Translations: [penicillin] Drug Allergy 04-18-19 UNKNOWN [facility] Repository (1 source) Sulfonamides (Antibiotic) Drug allergy (disorder) 04-18-19 UNKNOWN [facility] Repository (1 source) Sulfamethoxazole; Translations: [sulfamethoxazole ] Drug Allergy [facility] Repository (20 sources) Penicillin V Drug Allergy Unknown [facility] [place] Other (10 sources) sulfaSALAzine Drug Allergy Unknown [facility] [place] Other (3 sources) Sulfonamide Drug allergy Unknown [facility] [place] Other (18 sources) Substance with sulfonamide structure and antibacterial mechanism of action (substance) Drug allergy Unknown [facility] [place] Other (5 sources) Penicillins; Translations: [Penicillins] Allergy to substance 03-19-20 Unknown Reaction [facility] (5 sources) Sulfonamides (Antibiotic); Translations: [Sulfa (Sulfonamide Antibiotics)] Allergy to substance 03-19-20 Unknown Reaction [facility] (1 source) Penicillin Drug Allergy 08-13-19 [facility] Repository Medications Current Medications Medication Drug Class(es) Dates [...] mg Subcutaneous once a week Sep, Active [id number] 200 actuat albuterol 0.09 mg/actuat metered dose [...] Discontinued 100 MG PO Twice daily 14 7 February 28, 2023 12:00am March 21, 2023 [...] package directions ondansetron 4 mg oral tablet (16 sources) Serotonin-3 Receptor Antagonist take 1 tablet by mouth once daily Zofran ODT 4 MG 1 tablet on the tongue and allow to dissolve Orally Once a day for 30 days Active [employer] Ultra - (2 sources) [employer] Ultra - USE DIRECTED TO TEST BLOOD SUGAR ONCE DAILY for 90 Active OneTouch Ultra 2 w/Device (10 sources) OneTouch Ultra 2 w/Device TEST ONCE DAILY for 30 Active ozempic (2 mg/dose) 8 mg/3ml solution pen-injector (2 sources) Start: 10-16-2022 inject 2 mg by subcutaneous injection every week Ozempic (2 MG/DOSE) 8 MG/3ML 2 mg Subcutaneous once a week Sep, Active ProAir HFA 108 (90 Base) MCG/ACT (19 sources) ProAir HFA 108 ( 90 Base) [...] (0.25 or 0.5 MG/DOSE ) 2 MG/1.5ML (6 sources) Ozempic (0.25 or 0.5 MG/DOSE) 2 [...] May, Active predniSONE 20 mg oral tablet (9 sources) Start: 05-29-2023 take 2 tablets by [...] chronic] 06-03-2023 Episodic Chronic ulcer of skin (15 sources) Chronic ulcer of skin of lower [...] cervical region Episodic Other connective tissue disease (16 sources) Dupuytren's contracture; Translations: [Palmar fascial fibromatosis [Dupuytren]] Episodic Other connective tissue disease (2 sources) Palmar fascial fibromatosis [Dupuytren] Episodic Other injuries and conditions due to external causes (1 source) Other injury of unspecified body region, initial encounter Episodic Other nervous system disorders (4 sources) Paresthesia of hand ; Translations: [Paresthesia [...] Onset: 3 Varicose veins of lower extremity (11 sources) Varicose veins of right lower extremity [...] [ACHILLES TENDINITIS LEFT LEG] Onset: 04-28-2017 Episodic Other lower respiratory disease (1 source) Shortness of breath; Translations: [Shortness of breath] Onset: 06-02-2023 Episodic Results Test Name Value Interpretation Reference Range Facility B-Type Natriuretic Peptideon 06-03-2023 Natriuretic peptide B (Bld) [Mass/Vol] 26.0 pg/mL Normal 5-100 [facility] Comment on above: Result Comment: PERF ORMED BY: [facility] [address] [place] [address] PATHOLOGIST [employer] WORK[employer] MARTINEZ GARZA M.D. Performed By: #### L IPID, CBC, URMACRERAT, CMP #### [facility] [address] COVID-19 / Flu A/B / RSV [...] or Cepheid Disclaimer revoked sooner. PERFORMED BY: [place] [address] PATHOLOGIST [employer] WORK[employer] MARTINEZ GARZA M.D. Normal [facility] Comment on above: Performed By: #### C EPHEID NEG, COVID19 FLU RSV #### [address] Cepheid COVID PCR Negativeon 06-03-2023 SARS-CoV-2 (COVID-19) RNA ROSA+probe Ql (Unsp spec) Negative Normal Negative [facility] Comment on above: Result Comment: This is a duplicate Cepheid Xpert Xpress CoV-2/Flu/RSV Plus RNA by RT-PCR result to be used for statistical tracking purpose only. PERFORMED BY: [place] [address] PATHOLOGIST [employer] WORK[employer] MARTINEZ GARZA M.D. Performed By: #### C EPHEID NEG, COVID19 FLU RSV #### [address] Complete Blood Count Auto Di ffon 06-03-2023 Basophils (Bld) [#/Vol] 0.0 10*3/uL Normal 0.0-0.2 [facility] Comment on above: Result Comment: PERF ORMED BY: [place] [address] PATHOLOGIST [employer] WORK[employer] MARTINEZ GARZA M.D. Performed By: #### L IPID, CBC, URMACRERAT, CMP #### [address] Basophils/100 WBC (Bld) 0.3 % Normal . [facility] Comment on above: Performed By: #### L IPID, CBC, URMACRERAT, CMP #### [address] Eosinophils (Bld) [#/Vol] 0.2 10*3/uL Normal 0.0-0.45 [facility] Comment on above: Performed By: #### L IPID, CBC, URMACRERAT, CMP #### [address] Eosinophils/100 WBC (Bld) 2.8 % Normal . [facility] Comment on above: Performed By: #### L IPID, CBC, URMACRERAT, CMP #### [address] Erythrocyte distribution width (RBC) [Ratio] 14.6 % Normal 11.9-15.3 [facility] Comment on above: Performed By: #### L IPID, CBC, URMACRERAT, CMP #### [address] Hematocrit (Bld) [Volume fraction] 36.2 % Normal 34.0-46.4 [facility] Comment on above: Performed By: #### L IPID, CBC, URMACRERAT, CMP #### [address] Hemoglobin (Bld) [Mass/Vol] 12.6 g/dL Normal 11.8-15.4 [facility] Comment on above: Performed By: #### L IPID, CBC, URMACRERAT, CMP #### [address] Lymphocytes (Bld) [#/Vol] 3.3 10*3/uL Normal 1.00-4.8 [facility] Comment on above: Performed By: #### L IPID, CBC, URMACRERAT, CMP #### [address] Lymphocytes/100 WBC (Bld) 42.3 % Normal . [facility] Comment on above: Performed By: #### L IPID, CBC, URMACRERAT, CMP #### [address] MCH (RBC) [Entitic mass] 29.9 pg Normal 24.7-34.3 [facility] Comment on above: Performed By: #### L IPID, CBC, URMACRERAT, CMP #### [address] MCV (RBC) [Entitic vol] 85.9 fL Normal 80-100 [facility] Comment on above: Performed By: #### L IPID, CBC, URMACRERAT, CMP #### [address] Mean Corpuscular HGB Conc 34.8 g/dL Normal 32.0-35.0 [facility] Comment on above: Performed By: #### L IPID, CBC, URMACRERAT, CMP #### [address] Monocytes (Bld) [#/Vol] 0.6 10*3/uL Normal 0.0-0.8 [facility] Comment on above: Performed By: #### L IPID, CBC, URMACRERAT, CMP #### [address] Monocytes/100 WBC (Bld) 18.99 % Normal 0.00-20.00 [facility] Comment on above: Performed By: #### L IPID, CBC, URMACRERAT, CMP #### [address] Monocytes/100 WBC (Bld) 8.3 % Normal . [facility] Comment on above: Performed By: #### L IPID, CBC, URMACRERAT, CMP #### [address] Neutrophils (Bld) [#/Vol] 3.6 10*3/uL Normal 1.8-7.7 [facility] Comment on above: Performed By: #### L IPID, CBC, URMACRERAT, CMP #### [address] Neutrophils/100 WBC (Bld) 46.3 % Normal . [facility] Comment on above: Performed By: #### L IPID, CBC, URMACRERAT, CMP #### [address] NRBC% 0.2 /100{WBC} Normal 0-0.5 [facility] Comment on above: Performed By: #### L IPID, CBC, URMACRERAT, CMP #### [address] Platelet mean volume (Bld) [Entitic vol] 8.4 fL Normal 6.3-10.7 [facility] Comment on above: Performed By: #### L IPID, CBC, URMACRERAT, CMP #### [place] [address] [place] Platelets (Bld) [#/Vol] 303 10*3/uL Normal 150-450 [facility] Comment on above: Performed By: #### L IPID, CBC, URMACRERAT, CMP #### [address] RBC (Bld) [#/Vol] 4.21 10*6/uL Normal 3.60-5.00 [facility] Comment on above: Performed By: #### L IPID, CBC, URMACRERAT, CMP #### [address] WBC (Bld) [#/Vol] 7.7 10*3/uL Normal 3.8-11.6 [facility] Comment on above: Performed By: #### L IPID, CBC, URMACRERAT, CMP #### [facility] [address] [place] [address] Comprehensive Metabolic Pane tino 06-03-2023 Albumin [Mass/Vol] 4.0 g/dL Normal 3.5-5.7 [facility] Comment on above: Performed By: #### L IPID, CBC, URMACRERAT, CMP #### [address] Albumin/Globulin [Mass ratio] 1.5 {ratio} Normal [facility] Comment on above: Performed By: #### L IPID, CBC, URMACRERAT, CMP #### [address] ALP [Catalytic activity/Vol] 72 U/L Normal 34-104 [facility] Comment on above: Performed By: #### L IPID, CBC, URMACRERAT, CMP #### [address] ALT [Catalytic activity/Vol] 16 U/L Normal 7-52 [facility] Comment on above: Performed By: #### L IPID, CBC, URMACRERAT, CMP #### [address] Anion gap [Moles/Vol] Not performed Normal 6.0-15.0 [facility] Comment on above: Performed By: #### L IPID, CBC, URMACRERAT, CMP #### [address] AST [Catalytic activity/Vol] 20 U/L Normal 13-39 [facility] Comment on above: Performed By: #### L IPID, CBC, URMACRERAT, CMP #### [place] [address] [place] Bilirubin [Mass/Vol] 0.3 mg/dL Normal 0.3-1.0 [facility] Comment on above: Performed By: #### L IPID, CBC, URMACRERAT, CMP #### [place] [address] [place] Calcium [Mass/Vol] 9.1 mg/dL Normal 8.6-10.3 [facility] Comment on above: Performed By: #### L IPID, CBC, URMACRERAT, CMP #### [facility] [address] Chloride [Moles/Vol] 105 mmol/L Normal 98-107 [facility] Comment on above: Performed By: #### L IPID, CBC, URMACRERAT, CMP #### [facility] [address] CO2 [Moles/Vol] 26.7 mmol/L Normal 21.0-31.0 [facility] Comment on above: Performed By: #### L IPID, CBC, URMACRERAT, CMP #### [address] Creatinine [Mass/Vol] 0.72 mg/dL Normal 0.60-1.20 [facility] Comment on above: Performed By: #### L IPID, CBC, URMACRERAT, CMP #### [address] Creatinine Clr Calc Pharmacy 108.28 [facility] Comment on above: Result Comment: PERF ORMED BY: [place] [address] PATHOLOGIST [employer] WORK[employer] MARTINEZ GARZA M.D. Performed By: #### L IPID, CBC, URMACRERAT, CMP #### [address] GFR/1.73 sq M.predicted MDRD (S/P/Bld) [Vol rate/Area] mL/min/{1.73_m2} [facility] Comment on above: Performed By: #### L IPID, CBC, URMACRERAT, CMP #### [facility] [address] Globulin (S) [Mass/Vol] 2.6 g/dL [facility] Comment on above: Performed By: #### L IPID, CBC, URMACRERAT, CMP #### [address] Glucose [Mass/Vol] 198 mg/dL High 70-100 [facility] Comment on above: Result Comment: Sesser Glucose Reference Range is dependent on time and content of last meal. Glucose of more than 200 mg/dL in a nonstressed, ambulatory subject supports the diagnosis of Diabetes Mellitus. ADA recommended reference range Performed By: #### L IPID, CBC, URMACRERAT, CMP #### [facility] [address] Potassium Normal 3.5-5.1 [facility] Comment on above: Result Comment: Spec imen hemolyzed, redraw requested Performed By: #### L IPID, CBC, URMACRERAT, CMP #### [address] Protein [Mass/Vol] 6.6 g/dL Normal 6.4-8.9 [facility] Comment on above: Performed By: #### L IPID, CBC, URMACRERAT, CMP #### [address] Sodium [Moles/Vol] 132 mmol/L Low 136-145 [facility] Comment on above: Performed By: #### L IPID, CBC, URMACRERAT, CMP #### [address] Urea nitrogen [Mass/Vol] 21 mg/dL Normal 7-25 [facility] Comment on above: Performed By: #### L IPID, CBC, URMACRERAT, CMP #### [address] Creatine Kinaseon 06-03-2023 CK [Catalytic activity/Vol] 50 U/L Normal 30-223 [facility] Comment on above: Performed By: #### L IPID, CBC, URMACRERAT, CMP #### [address] ECG 12 lead ECGon 06-03-2023 ECG 12 lead ECG [facility] [address] [place] [id number] Electrocardiograph Report Signed Patient: Mavis Pickard MR#: [id number] : 1960 Acct:[id number] Age/Sex: 63 / F ADM Date: 06/02/23 Loc: ER Room: Type: [facility] ER Attending Dr: Ordering Provider: [...] Signed By Winston Moe MD 2116 Normal [facility] Redraw Potassiumon 3 Potassium [Moles/Vol] 3.9 mmol/L Normal 3.5-5.1 [facility] Comment on above: Result Comment: PERF ORMED BY: [address] [place] [address] PATHOLOGIST [employer] WORK[employer] MARTINEZ GARZA M.D. Performed By: #### R EDSEUN K #### [address] [address] [facility] Troponin I High Sensitivityo n 06-03-2023 Troponin I High Sensitivity 4.2 pg/mL Normal 0.0-15.0 [facility] Comment on above: Result Comment: PERF ORMED BY: [address] [place] [address] PATHOLOGIST [employer] WORK[employer] MARTINEZ GARZA M.D. Performed By: #### L IPID, CBC, URMACRERAT, CMP #### [facility] [address] XR chest 2V*on 06-03-2023 XR chest 2V* [facility] [address] [place] [address] XRay Report Signed Patient: Mavis Pickard MR#: [id number] : 1960 Acct:[id number] Age/Sex: 63 / F ADM Date: 06/02/23 Loc: ER Room: Type: [facility] ER Attending Dr: Copies to: [...] Holden Herrmann M.D.06/03/2023 9:48 AM Dictation Location: [place] [address] Transcribed By: [facility] 06/03/23947 Dictated By: Holden Herrmann II, MD 06/03/23946 Signed By: 06/03/23947 Normal [facility] Alanine aminotransferase [En zymatic activity/volume] in Serum or PlasmaOrdered By: Rashad Pendleton on 06-02-2023 ALT [Catalytic activity/Vol] 16 U/L 7-52 [facility] Albumin [Mass/volume] in Ser um or Plasma by Bromocresol green (BCG) dye binding methoOrdered By: Rashad Pendleton on 06-02-2023 Albumin BCG dye [Mass/Vol] 4.0 g/dL 3.5-5.7 [facility] Alkaline phosphatase [Enzyma tic activity/volume] in Serum or PlasmaOrdered By: Rashad Pendleton on 06-02-2023 ALP [Catalytic activity/Vol] 72 U/L 34-104 [facility] Aspartate aminotransferase [ Enzymatic activity/volume] in Serum or PlasmaOrdered By: Rashad Pendleton on 06-02-2023 AST [Catalytic activity/Vol] 20 U/L 13-39 [facility] Basophils Auto (Bld) [#/Vol] Ordered By: Rashad Pendleton on 06-02-2023 Basophils (Bld) [#/Vol] 0.0 10*3/uL 0.0-0.2 [facility] Basophils/100 WBC Auto (Bld) Ordered By: Rashad Pendleton on 06-02-2023 Basophils/100 WBC (Bld) 0.3 % . [facility] Bilirubin.total [Mass/volume ] in Serum or PlasmaOrdered By: Rashad Pendleton on 06-02-2023 Bilirubin [Mass/Vol] 0.3 mg/dL 0.3-1.0 [facility] COVID CepheidOrdered By: Denise Pendleton on 06-02-2023 SARS-CoV-2 (COVID-19) Ab IA Ql Negative Negative [facility] Comment on above: This is a duplicate [employer] Xpert Xpress CoV-2/Flu/RSV Plus RNA by RT-PCR result to be used for statistical tracking purpose only. SARS-CoV-2 (COVID-19) RNA ROSA+probe Ql (Unsp spec) [facility] Calcium [Mass/volume] in Ser um or PlasmaOrdered By: Rashad Pendleton on 06-02-2023 Calcium [Mass/Vol] 9.1 mg/dL 8.6-10.3 [facility] Carbon dioxide, total [Moles /volume] in Serum or PlasmaOrdered By: Rashad Pendleton on 06-02-2023 CO2 [Moles/Vol] 26.7 mmol/L 21.0-31.0 [facility] Chloride [Moles/volume] in S alexander or PlasmaOrdered By: Rashad Pendleton on 06-02-2023 Chloride [Moles/Vol] 105 mmol/L 98-107 [facility] Creatine kinase [Enzymatic a ctivity/volume] in Serum or PlasmaOrdered By: Rashad Pendleton on 06-02-2023 CK [Catalytic activity/Vol] 50 U/L 30-223 [facility] Creatinine [Mass/volume] in Serum or PlasmaOrdered By: Rashad Pendleton on 06-02-2023 Creatinine [Mass/Vol] 0.72 mg/dL 0.60-1.20 [facility] Eosinophils Auto (Bld) [#/Vo l]Ordered By: Rashad Pendleton on 06-02-2023 Eosinophils (Bld) [#/Vol] 0.2 10*3/uL 0.0-0.45 [facility] Eosinophils/100 WBC Auto (Bl d)Ordered By: Rashad Pendleton on 06-02-2023 Eosinophils/100 WBC (Bld) 2.8 % . [facility] Erythrocyte distribution wid th Auto (RBC) [Ratio]Ordered By: Rashad Pendleton on 06-02-2023 Erythrocyte distribution width (RBC) [Ratio] 14.6 % 11.9-15.3 [facility] Globulin Calc (S) [Mass/Vol] Ordered By: Rashad Pendleton on 06-02-2023 Globulin (S) [Mass/Vol] 2.6 g/dL [facility] Glucose [Mass/volume] in Ser um or PlasmaOrdered By: Rashad Pendleton on 06-02-2023 Glucose [Mass/Vol] 198 mg/dL 70-100 [facility] Comment on above: ADA recommended refe rence rangeRandom Glucose Reference Range is dependent on time and content of last meal. Glucose of more than 200 mg/dL in a nonstressed, ambulatory subject supports the diagnosis of Diabetes Mellitus. Hematocrit Auto (Bld) [Volum e fraction]Ordered By: Rashad Pendleton on 06-02-2023 Hematocrit (Bld) [Volume fraction] 36.2 % 34.0-46.4 [facility] Hemoglobin [Mass/volume] in BloodOrdered By: Rashad Pendleton on 06-02-2023 Hemoglobin (Bld) [Mass/Vol] 12.6 g/dL 11.8-15.4 [facility] Leukocytes [#/volume] correc vandana for nucleated erythrocytes in Blood by Automated counOrdered By: Rashad Pendleton on 06-02-2023 WBC corrected for nucl RBC Auto (Bld) [#/Vol] 7.7 10*3/uL 3.8-11.6 [facility] Lymphocytes Auto (Bld) [#/Vo l]Ordered By: Rashad Pendleton on 06-02-2023 Lymphocytes (Bld) [#/Vol] 3.3 10*3/uL 1.00-4.8 [facility] Lymphocytes/100 WBC Auto (Bl d)Ordered By: Rashad Pendleton on 06-02-2023 Lymphocytes/100 WBC (Bld) 42.3 % . [facility] MCH Auto (RBC) [Entitic mass ]Ordered By: Rashad Pendleton on 06-02-2023 MCH (RBC) [Entitic mass] 29.9 pg 24.7-34.3 [facility] MCHC Auto (RBC) [Mass/Vol]Or dered By: Rashad Pendleton on 06-02-2023 MCHC (RBC) [Mass/Vol] 34.8 g/dL 32.0-35.0 [facility] MCV Auto (RBC) [Entitic vol] Ordered By: Rashad Pendleton on 06-02-2023 MCV (RBC) [Entitic vol] 85.9 fL 80-100 [facility] Monocyte distribution width [Entitic volume] in Blood by AutomatedOrdered By: Rashad Pendleton on 06-02-2023 Monocyte distribution width Auto (Bld) [Entitic vol] 18.99 % 0.00-20.00 [facility] Monocytes Auto (Bld) [#/Vol] Ordered By: Rashad Pendleton on 06-02-2023 Monocytes (Bld) [#/Vol] 0.6 10*3/uL 0.0-0.8 [facility] Monocytes/100 WBC Auto (Bld) Ordered By: Rashad Pendleton on 06-02-2023 Monocytes/100 WBC (Bld) 8.3 % . [facility] Natriuretic peptide B [Mass/ Vol]Ordered By: Rashad Pendleton on 06-02-2023 Natriuretic peptide B (Bld) [Mass/Vol] 26.0 pg/mL 5-100 [facility] Neutrophils Auto (Bld) [#/Vo l]Ordered By: Rashad Pendleton on 06-02-2023 Neutrophils (Bld) [#/Vol] 3.6 10*3/uL 1.8-7.7 [facility] Neutrophils/100 WBC Auto (Bl d)Ordered By: Rashad Pendleton on 06-02-2023 Neutrophils/100 WBC (Bld) 46.3 % . [facility] No Panel InformationOrdered By: Rashad Pendleton on 06-02-2023 Estimated GFR (CKD-EPI) > 60.0 mL/Min [facility] Creatinine Clearance (Chem 108.28 [facility] Nucleated erythrocytes [Pres ence] in Blood by Automated countOrdered By: Rashad Pendleton on 06-02-2023 Nucleated RBC Auto Ql (Bld) 0.2 /100{WBC} 0-0.5 [facility] Platelet mean volume Auto (B ld) [Entitic vol]Ordered By: Rashad Pendleton on 06-02-2023 Platelet mean volume (Bld) [Entitic vol] 8.4 fL 6.3-10.7 [facility] Platelets Auto (Bld) [#/Vol] Ordered By: Rashad Pendleton on 06-02-2023 Platelets (Bld) [#/Vol] 303 10*3/uL 150-450 [facility] Protein [Mass/volume] in Ser um or PlasmaOrdered By: Rashad Pendleton on 06-02-2023 Protein [Mass/Vol] 6.6 g/dL 6.4-8.9 [facility] RBC Auto (Bld) [#/Vol]Ordere d By: Rashad Pendleton on 06-02-2023 RBC (Bld) [#/Vol] 4.21 10*6/uL 3.60-5.00 [facility] Serum or plasma albumin/glob ulin mass ratioOrdered By: Rashad Pendleton on 06-02-2023 Albumin/Globulin [Mass ratio] 1.5 {ratio} [facility] Serum or plasma anion gap de terminationOrdered By: Rashad Pendleton on 06-02-2023 Anion gap [Moles/Vol] TNP [facility] Comment on above: Test not performed Sodium [Moles/volume] in Ser um or PlasmaOrdered By: Rashad Pendleton on 06-02-2023 Sodium [Moles/Vol] 132 mmol/L 136-145 [facility] Troponin I.cardiac [Mass/vol ume] in Serum or Plasma by Detection limit <= 0.01 ng/Ordered By: Rashad Pendleton on 06-02-2023 Troponin I.cardiac DL <= 0.01 ng/mL [Mass/Vol] 4.2 pg/mL 0.0-15.0 [facility] Urea nitrogen [Mass/volume] in Serum or PlasmaOrdered By: Rashad Pendleton on 06-02-2023 Urea nitrogen [Mass/Vol] 21 mg/dL 7-25 [facility] WBC Auto (Bld) [#/Vol]Ordere d By: Rashad Pendleton on 06-02-2023 WBC (Bld) [#/Vol] 7.7 10*3/uL 3.8-11.6 [facility] A1C HEMOGLOBINon 05-21-2023 HbA1c (Bld) [Mass fraction] 6.3 % [facility] Other HbA1c (Bld) [Mass fraction]o n 05-21-2023 A1C HEMOGLOBIN [facility] Other A1C HEMOGLOBINon 02-08-2023 HbA1c (Bld) [Mass fraction] 6.3 % [facility] Other HbA1c (Bld) [Mass fraction]o n 02-08-2023 A1C HEMOGLOBIN [employer] Other Alanine aminotransferase [En zymatic activity/volume] in Serum or PlasmaOrdered By: Rashad Teran on 02-07-2023 ALT [Catalytic activity/Vol] 21 U/L Normal 7-52 [facility] Comment on above: Order Comment: Reaso n for Exam Type 2 diabetes mellitus without complications Performed By: #### L IPID, CBC, URMACRERAT, CMP #### [facility] [address] Albumin [Mass/volume] in Ser um or Plasma by Bromocresol green (BCG) dye binding methoOrdered By: Rashad Teran on 02-07-2023 Albumin BCG dye [Mass/Vol] 4.3 g/dL 3.5-5.7 [facility] Alkaline phosphatase [Enzyma tic activity/volume] in Serum or PlasmaOrdered By: Rashad Teran on 02-07-2023 ALP [Catalytic activity/Vol] 78 U/L Normal 34-104 [facility] Comment on above: Order Comment: Reaso n for Exam Type 2 diabetes mellitus without complications Performed By: #### L IPID, CBC, URMACRERAT, CMP #### [facility] [address] Aspartate aminotransferase [ Enzymatic activity/volume] in Serum or PlasmaOrdered By: Rashad Mast on 02-07-2023 AST [Catalytic activity/Vol] 24 U/L Normal 13-39 [facility] Comment on above: Order Comment: Reaso n for Exam Type 2 diabetes mellitus without complications Performed By: #### L IPID, CBC, URMACRERAT, CMP #### [facility] [address] Automated basophil %Ordered By: Rashad Mast on 02-07-2023 Basophils/100 WBC (Bld) 1.0 % Normal . [facility] Comment on above: Order Comment: Reaso n for Exam Type 2 diabetes mellitus without complications Performed By: #### L IPID, CBC, URMACRERAT, CMP #### [facility] [address] [place] [address] Automated basophil countOrde red By: Rashad Mast on 02-07-2023 Basophils (Bld) [#/Vol] 0.1 10*3/uL Normal 0.0-0.2 [facility] Comment on above: Order Comment: Reaso n for Exam Type 2 diabetes mellitus without complications Result Comment: PERF ORMED BY: [place] [address] PATHOLOGIST [employer] MARTINEZ GARZA M.D. Performed By: #### L IPID, CBC, URMACRERAT, CMP #### [facility] [address] [place] [address] Automated blood monocyte cou ntOrdered By: Rashad Mast on 02-07-2023 Monocytes (Bld) [#/Vol] 0.6 10*3/uL Normal 0.0-0.8 [facility] Comment on above: Order Comment: Reaso n for Exam Type 2 diabetes mellitus without complications Performed By: #### L IPID, CBC, URMACRERAT, CMP #### [facility] [address] Automated eosinophil %Ordere d By: Rashad Mast on 02-07-2023 Eosinophils/100 WBC (Bld) 3.5 % Normal . [facility] Comment on above: Order Comment: Reaso n for Exam Type 2 diabetes mellitus without complications Performed By: #### L IPID, CBC, URMACRERAT, CMP #### [facility] [address] [place] [address] Automated eosinophil countOr dered By: Rashad Mast on 02-07-2023 Eosinophils (Bld) [#/Vol] 0.3 10*3/uL Normal 0.0-0.45 [facility] Comment on above: Order Comment: Reaso n for Exam Type 2 diabetes mellitus without complications Performed By: #### L IPID, CBC, URMACRERAT, CMP #### [facility] [address] [place] [address] Automated monocyte %Ordered By: Rashad Mast on 02-07-2023 Monocytes/100 WBC (Bld) 7.4 % Normal . [facility] Comment on above: Order Comment: Reaso n for Exam Type 2 diabetes mellitus without complications Performed By: #### L IPID, CBC, URMACRERAT, CMP #### [facility] [address] [place] [address] Automated neutrophil %Ordere d By: Rashad Mast on 02-07-2023 Neutrophils/100 WBC (Bld) 53.6 % Normal . [facility] Comment on above: Order Comment: Reaso n for Exam Type 2 diabetes mellitus without complications Performed By: #### L IPID, CBC, URMACRERAT, CMP #### [facility] [address] [place] [address] Bilirubin.total [Mass/volume ] in Serum or PlasmaOrdered By: Rashad Mast on 02-07-2023 Bilirubin [Mass/Vol] 0.6 mg/dL Normal 0.3-1.0 [facility] Comment on above: Order Comment: Reaso n for Exam Type 2 diabetes mellitus without complications Performed By: #### L IPID, CBC, URMACRERAT, CMP #### [facility] [address] [place] [id number] [place] Calcium [Mass/volume] in Ser um or PlasmaOrdered By: Rashad Mast on 02-07-2023 Calcium [Mass/Vol] 9.6 mg/dL Normal 8.6-10.3 [facility] Comment on above: Order Comment: Reaso n for Exam Type 2 diabetes mellitus without complications Performed By: #### L IPID, CBC, URMACRERAT, CMP #### [facility] [address] [place] [address] [place] Carbon dioxide, total [Moles /volume] in Serum or PlasmaOrdered By: Rashad Mast on 02-07-2023 CO2 [Moles/Vol] 28.0 mmol/L Normal 21.0-31.0 [facility] Comment on above: Order Comment: Reaso n for Exam Type 2 diabetes mellitus without complications Performed By: #### L IPID, CBC, URMACRERAT, CMP #### [facility] [address] [place] [id number] [place] Chloride [Moles/volume] in S alexander or PlasmaOrdered By: Rashad Mast on 02-07-2023 Chloride [Moles/Vol] 103 mmol/L Normal 98-107 [facility] Comment on above: Order Comment: Reaso n for Exam Type 2 diabetes mellitus without complications Performed By: #### L IPID, CBC, URMACRERAT, CMP #### [facility] [address] [place] [id number] [place] Cholesterol [Mass/volume] in Serum or PlasmaOrdered By: Rashad Mast on 02-07-2023 Cholesterol [Mass/Vol] 119 mg/dL Low 140-200 [facility] Comment on above: Chol less than [...] #### L IPID, CBC, URMACRERAT, CMP #### [facility] [address] Cholesterol in LDL Calc [Mas s/Vol]Ordered By: Rashad Teran on 02-07-2023 Cholesterol in LDL [Mass/Vol] 40 mg/dL 0-100 [facility] Comment on above: LDL ATP III CLASSIFI CATIONLDL less than 100 mg/dL OptimalLDL 100-129 mg/dL Near or above optimalLDL 130-159 mg/dL Borderline highLDL 160-189 mg/dL HighLDL greater than 189 mg/dL Very high Cholesterol in VLDL Calc [Ma ss/Vol]Ordered By: Rashad Teran on 02-07-2023 Cholesterol in VLDL [Mass/Vol] 29 mg/dL [facility] Complete Blood Count Auto Di ffon 02-07-2023 Mean Corpuscular HGB Conc 33.2 g/dL Normal 32.0-35.0 [facility] Comment on above: Order Comment: Reaso n for Exam Type 2 diabetes mellitus without complications Performed By: #### L IPID, CBC, URMACRERAT, CMP #### [facility] [address] NRBC% 0.2 /100{WBC} Normal 0-0.5 [facility] Comment on above: Order Comment: Reaso n for Exam Type 2 diabetes mellitus without complications Performed By: #### L IPID, CBC, URMACRERAT, CMP #### [facility] [address] Comprehensive Metabolic Pane tino 02-07-2023 Albumin [Mass/Vol] 4.3 g/dL Normal 3.5-5.7 [facility] Comment on above: Order Comment: Reaso n for Exam Type 2 diabetes mellitus without complications Performed By: #### L IPID, CBC, URMACRERAT, CMP #### [facility] [address] GFR/1.73 sq M.predicted MDRD (S/P/Bld) [Vol rate/Area] mL/min/{1.73_m2} Normal [facility] Comment on above: Order Comment: Reaso n for Exam Type 2 diabetes mellitus without complications Performed By: #### L IPID, CBC, URMACRERAT, CMP #### [facility] [address] [place] [address] [place] Creatinine [Mass/volume] in Serum or PlasmaOrdered By: Rashad Mast on 02-07-2023 Creatinine [Mass/Vol] 0.82 mg/dL Normal 0.60-1.20 [facility] Comment on above: Order Comment: Reaso n for Exam Type 2 diabetes mellitus without complications Performed By: #### L IPID, CBC, URMACRERAT, CMP #### [facility] [address] [place] [address] [place] Creatinine [Mass/volume] in UrineOrdered By: Rashad Mast on 02-07-2023 Creatinine (U) [Mass/Vol] 140.0 mg/dL 11.0-20.0 [facility] Erythrocyte distribution wid th [Ratio] by Automated countOrdered By: Rashad Mast on 02-07-2023 Erythrocyte distribution width (RBC) [Ratio] 14.3 % Normal 11.9-15.3 [facility] Comment on above: Order Comment: Reaso n for Exam Type 2 diabetes mellitus without complications Performed By: #### L IPID, CBC, URMACRERAT, CMP #### [facility] [address] [place] [address] [place] Erythrocytes [#/volume] in B lood by Automated countOrdered By: Rashad Mast on 02-07-2023 RBC (Bld) [#/Vol] 4.98 10*6/uL Normal 3.60-5.00 [facility] Comment on above: Order Comment: Reaso n for Exam Type 2 diabetes mellitus without complications Performed By: #### L IPID, CBC, URMACRERAT, CMP #### [facility] [address] [place] [address] [place] Glucose [Mass/volume] in Ser um or PlasmaOrdered By: Rashad Mast on 02-07-2023 Glucose [Mass/Vol] 122 mg/dL High 70-100 [facility] Comment on above: ADA recommended refe rence rangeRandom Glucose Reference Range is dependent on time and content of last meal. Glucose of more than 200 mg/dL in a nonstressed, ambulatory subject supports the diagnosis of Diabetes Mellitus. Order Comment: Reaso n for Exam Type 2 diabetes mellitus without complications Result Comment: Sesser om Glucose Reference Range is dependent on time and content of last meal. Glucose of more than 200 mg/dL in a nonstressed, ambulatory subject supports the diagnosis of Diabetes Mellitus. ADA recommended reference range Performed By: #### L IPID, CBC, URMACRERAT, CMP #### [facility] [address] Hematocrit [Volume Fraction] of Blood by Automated countOrdered By: Rashad judge.me on 02-07-2023 Hematocrit (Bld) [Volume fraction] 42.0 % Normal 34.0-46.4 [facility] Comment on above: Order Comment: Reaso n for Exam Type 2 diabetes mellitus without complications Performed By: #### L IPID, CBC, URMACRERAT, CMP #### [facility] [address] [place] [address] Hemoglobin [Mass/volume] in BloodOrdered By: [employer] on 02-07-2023 Hemoglobin (Bld) [Mass/Vol] 14.0 g/dL Normal 11.8-15.4 [facility] Comment on above: Order Comment: Reaso n for Exam Type 2 diabetes mellitus without complications Performed By: #### L IPID, CBC, URMACRERAT, CMP #### [facility] [address] [place] [address] [place] Leukocytes [#/volume] correc vandana for nucleated erythrocytes in Blood by Automated counOrdered By: [employer] on 02-07-2023 WBC corrected for nucl RBC Auto (Bld) [#/Vol] 7.4 10*3/uL 3.8-11.6 [facility] Leukocytes [#/volume] in Blo od by Automated countOrdered By: RashadPathway [employer] on 02-07-2023 WBC (Bld) [#/Vol] 7.4 10*3/uL Normal 3.8-11.6 [facility] Comment on above: Order Comment: Reaso n for Exam Type 2 diabetes mellitus without complications Performed By: #### L IPID, CBC, URMACRERAT, CMP #### [facility] [address] [place] [address] Lipid Panelon 02-07-2023 LDL Cholesterol,Calculate d 40 mg/dL Normal 0-100 [facility] Comment on above: Order Comment: Reaso n for Exam Type 2 diabetes mellitus without complications Result Comment: LDL ATP III CLASSIFICATION LDL less than 100 mg/dL Optimal LDL 100-129 mg/dL Near or above optimal LDL 130-159 mg/dL Borderline high LDL 160-189 mg/dL High LDL greater than 189 mg/dL Very high Performed By: #### L IPID, CBC, URMACRERAT, CMP #### [address] Triglyceride w/Reflex 148 mg/dL Normal 0-149 [facility] Comment on above: Order Comment: Reaso [...] #### L IPID, CBC, URMACRERAT, CMP #### [address] VLDL CHOLESTEROL 29 mg/dL Normal [facility] Comment on above: Order Comment: Reaso n for Exam Type 2 diabetes mellitus without complications Performed By: #### L IPID, CBC, URMACRERAT, CMP #### [address] Lymphocytes [#/volume] in Bl ood by Automated countOrdered By: Rashad Teran on 02-07-2023 Lymphocytes (Bld) [#/Vol] 2.6 10*3/uL Normal 1.00-4.8 [facility] Comment on above: Order Comment: Reaso n for Exam Type 2 diabetes mellitus without complications Performed By: #### L IPID, CBC, URMACRERAT, CMP #### [facility] [address] [place] [address] [place] Lymphocytes/100 leukocytes i n Blood by Automated countOrdered By: Rashad Mast on 02-07-2023 Lymphocytes/100 WBC (Bld) 34.5 % Normal . [facility] Comment on above: Order Comment: Reaso n for Exam Type 2 diabetes mellitus without complications Performed By: #### L IPID, CBC, URMACRERAT, CMP #### [facility] [address] [place] [address] [place] MCH [Entitic mass] by Automa vandana countOrdered By: Rashad Mast on 02-07-2023 MCH (RBC) [Entitic mass] 28.0 pg Normal 24.7-34.3 [facility] Comment on above: Order Comment: Reaso n for Exam Type 2 diabetes mellitus without complications Performed By: #### L IPID, CBC, URMACRERAT, CMP #### [facility] [address] [place] [address] MCHC Auto (RBC) [Mass/Vol]Or dered By: Rashad Mast on 02-07-2023 MCHC (RBC) [Mass/Vol] 33.2 g/dL 32.0-35.0 [facility] MCV [Entitic volume] by Auto mated countOrdered By: Rashad Mast on 02-07-2023 MCV (RBC) [Entitic vol] 84.3 fL Normal 80-100 [facility] Comment on above: Order Comment: Reaso n for Exam Type 2 diabetes mellitus without complications Performed By: #### L IPID, CBC, URMACRERAT, CMP #### [facility] [address] [place] [address] [place] MicroAlb Creat Ratio,Uon Creatinine, Urine (Random) 140.0 mg/dL High 11.0-20.0 [facility] Comment on above: Order Comment: Reaso n for Exam Type 2 diabetes mellitus without complications Performed By: #### L IPID, CBC, URMACRERAT, CMP #### [facility] [address] Microalbumin/Creatini ne Ratio 5.0 mg/g Normal 0.0-30.0 [facility] Comment on above: Order Comment: Reaso n for Exam Type 2 diabetes mellitus without complications Result Comment: 30-3 00 mg/g indicates an increased risk for diabetic nephropathy. Greater than 300 mg/g is consistent with clinical nephropathy. (Am. J. Kidney Disease 1995, 25:107) PERFORMED BY: [place] [address] PATHOLOGIST [employer] MARTINEZ GARZA M.D. Performed By: #### L IPID, CBC, URMACRERAT, CMP #### [facility] [address] [place] [address] Microalbumin [Mass/volume] i n UrineOrdered By: Rashad Teran on 02-07-2023 Albumin DL <= 20 mg/L (U) [Mass/Vol] 0.8 mg/dL Normal 0.0-1.8 [facility] Comment on above: Order Comment: Reaso n for Exam Type 2 diabetes mellitus without complications Performed By: #### L IPID, CBC, URMACRERAT, CMP #### [facility] [address] [place] [address] Neutrophils [#/volume] in Bl ood by Automated countOrdered By: Rashad Teran on 02-07-2023 Neutrophils (Bld) [#/Vol] 4.0 10*3/uL Normal 1.8-7.7 [facility] Comment on above: Order Comment: Reaso n for Exam Type 2 diabetes mellitus without complications Performed By: #### L IPID, CBC, URMACRERAT, CMP #### [facility] [address] [place] [address] No Panel InformationOrdered By: Rashad Teran on 02-07-2023 Estimated GFR (CKD-EPI) > 60.0 mL/Min [facility] Creatinine Clearance (Chem N/A [facility] Nucleated erythrocytes [Pres ence] in Blood by Automated countOrdered By: Rashad Teran on 02-07-2023 Nucleated RBC Auto Ql (Bld) 0.2 /100{WBC} 0-0.5 [facility] Platelet mean volume [Entiti c volume] in Blood by Automated countOrdered By: Rashad Mast on 02-07-2023 Platelet mean volume (Bld) [Entitic vol] 9.3 fL Normal 6.3-10.7 [facility] Comment on above: Order Comment: Reaso n for Exam Type 2 diabetes mellitus without complications Performed By: #### L IPID, CBC, URMACRERAT, CMP #### [facility] [address] [place] [address] [place] Platelets [#/volume] in Bloo d by Automated countOrdered By: Rashad Mast on 02-07-2023 Platelets (Bld) [#/Vol] 242 10*3/uL Normal 150-450 [facility] Comment on above: Order Comment: Reaso n for Exam Type 2 diabetes mellitus without complications Performed By: #### L IPID, CBC, URMACRERAT, CMP #### [facility] [address] [place] [address] [place] Potassium [Moles/volume] in Serum or PlasmaOrdered By: Rashad Mast on 02-07-2023 Potassium [Moles/Vol] 4.4 mmol/L Normal 3.5-5.1 [facility] Comment on above: Order Comment: Reaso n for Exam Type 2 diabetes mellitus without complications Performed By: #### L IPID, CBC, URMACRERAT, CMP #### [facility] [address] [place] [address] [place] Protein [Mass/volume] in Ser um or PlasmaOrdered By: Rashad Mast on 02-07-2023 Protein [Mass/Vol] 6.9 g/dL Normal 6.4-8.9 [facility] Comment on above: Order Comment: Reaso n for Exam Type 2 diabetes mellitus without complications Performed By: #### L IPID, CBC, URMACRERAT, CMP #### [facility] [address] [place] [address] [place] Serum globulin measurement b y calculation (mass/volume)Ordered By: Rashad Mast on 02-07-2023 Globulin (S) [Mass/Vol] 2.6 g/dL Normal [facility] Comment on above: Order Comment: Reaso n for Exam Type 2 diabetes mellitus without complications Performed By: #### L IPID, CBC, URMACRERAT, CMP #### [facility] [address] Serum or plasma albumin/glob ulin mass ratioOrdered By: Rashad Teran on 02-07-2023 Albumin/Globulin [Mass ratio] 1.7 {ratio} Normal [facility] Comment on above: Order Comment: Reaso n for Exam Type 2 diabetes mellitus without complications Performed By: #### L IPID, CBC, URMACRERAT, CMP #### [facility] [address] Serum or plasma anion gap de terminationOrdered By: Rashad Teran on 02-07-2023 Anion gap [Moles/Vol] 12.4 mmol/L Normal 6.0-15.0 [facility] Comment on above: Order Comment: Reaso n for Exam Type 2 diabetes mellitus without complications Performed By: #### L IPID, CBC, URMACRERAT, CMP #### [facility] [address] Serum or plasma high density lipoprotein (HDL) cholesterol measurementOrdered By: Rashad Teran on 02-07-2023 Cholesterol in HDL [Mass/Vol] 49 mg/dL Normal 23-92 [facility] Comment on above: HDL CHOL ATP-III [...] #### L IPID, CBC, URMACRERAT, CMP #### [facility] [address] Serum or plasma total choles terol/high density lipoprotein (HDL) cholesterol mass ratOrdered By: Rashad Teran on 02-07-2023 Cholesterol.total/Cho lesterol in HDL [Mass ratio] 2.4 {ratio} Normal <5.0 [facility] Comment on above: Order Comment: Reaso n for Exam Type 2 diabetes mellitus without complications Result Comment: PERF ORMED BY: [place] [address] PATHOLOGIST [employer] WORK[employer] MARTINEZ GARZA M.D. Performed By: #### L IPID, CBC, CHAYO, TED #### [facility] [address] Sodium [Moles/volume] in Ser um or PlasmaOrdered By: Rashad Mast on 02-07-2023 Sodium [Moles/Vol] 139 mmol/L Normal 136-145 [facility] Comment on above: Order Comment: Reaso n for Exam Type 2 diabetes mellitus without complications Performed By: #### L IPIDTC, CHAYO, TED #### [facility] [address] Triglyceride [Mass/volume] i n Serum or PlasmaOrdered By: Rashad Mast on 02-07-2023 Triglyceride [Mass/Vol] 148 mg/dL 0-149 [facility] Comment on above: TRIG ATP III CLASSIF ICATIONTRIG less than 150 mg/dL NormalTRIG 150-199 mg/dL Borderline highTRIG 200-500 mg/dL High TRIG greater than 500 mg/dL Very highStandard traceable to the Center for Disease Conrtrol and Prevention (CDC) test method. Urea nitrogen [Mass/volume] in Serum or PlasmaOrdered By: Rashad Mast on 02-07-2023 Urea nitrogen [Mass/Vol] 15 mg/dL Normal 7-25 [facility] Comment on above: Order Comment: Reaso n for Exam Type 2 diabetes mellitus without complications Performed By: #### L IPID, CBC, CHAYO, CMP #### [facility] [address] Urine microalbumin/creatinin e mass ratioOrdered By: Rashad Mast on 02-07-2023 Albumin/Creatinine DL <= 20 mg/L (U) [Mass ratio] 5.0 mg/g 0.0-30.0 [facility] Comment on above: 30-300 mg/g indicate s an increased risk for diabetic nephropathy. Greater than 300 mg/g is consistent with clinical nephropathy. (Am. J. Kidney Disease 1995, 25:107) MM screening mammo BI w/CADo n 10-23-2022 MM screening mammo BI w/CAD [facility] Main [place] [address] [place] [address] Mammography Report Signed Patient: Mavis Pickard MR#: [id number] : 1960 Acct:[id number] Age/Sex: 62 / F ADM Date: 10/21/22 Loc: [place] [facility]: Baltazar Strange DO Copies to: Mast/Preceptor, Rashad BEGUM-S Baltazar Strange DO Ordering Provider: Baltzaar Strange DO Date of Service: 10/21/22 MM/MM [...] Anai Gomez M.D.10/23/2022 7:17 AM Dictation Location: [facility] Transcribed By: LADONNA 10/23/22716 Dictated By: Anai Gomez MD 10/23/2214 Signed By: 10/23/22716 [facility] A1C HEMOGLOBINon 10-16-2022 HbA1c (Bld) [Mass fraction] 7.0 % [employer] Other HbA1c (Bld) [Mass fraction]o n 10-16-2022 A1C HEMOGLOBIN [employer] Other A1C HEMOGLOBINon 06-26-2022 HbA1c (Bld) [Mass fraction] 8.6 % [employer] Other HbA1c (Bld) [Mass fraction]o n 06-26-2022 A1C HEMOGLOBIN [employer] Other A1C HEMOGLOBINon 03-02-2022 HbA1c (Bld) [Mass fraction] 9.0 % [employer] Other HbA1c (Bld) [Mass fraction]o n 03-02-2022 A1C HEMOGLOBIN [employer] Other Progress Note-Physicianon Protein mass conc Patient: [...] insulin dependent (IDDM), controlled / SNOMED CT 699695249 / ConfirmedAsthma / SNOMED CT 916183522 / ConfirmedLocalized osteoarthritis of knee / SNOMED CT 651928775 / Confirmed Physical Examination Intake and Output Denies significant n/v and is tolerating p.o. No qualifying data available Respiratory: Adequate air exchange with orthodox of preoperative function.. Cardiovascular: Cardiovascular function is stable and has returned to preoperative levels.. Neurologic: Pt has returned to preoperative baseline.. Review / Management Condition: Stable. Assessment Anesthetic outcome No anesthetic complications noted. Plan Transfer/ Discharge: Patient can be discharged from PACU when criteria met. Condition good. Normal [facility] Comment on above: Result Comment: Elec tronically Signed By: Yoni Noland JR, DO.br\Date and Time Signed: 07/22/18 12:19 EST Protein [...] insulin dependent (IDDM), controlled / SNOMED CT 411762658 / ConfirmedAsthma / SNOMED CT 442602711 / ConfirmedLocalized osteoarthritis of knee / SNOMED CT 080452102 / Confirmed Physical Examination Intake and Output Denies significant n/v and is tolerating p.o. Vital Signs (last 24 hrs) Last Charted Temp Oral 36.4 DegC (JUL 12:)Heart Rate Apical 84 bpm (JUL 12:)Resp Rate 16 br/min (JUL 12:)SBP H 156 mmHg (JUL 12:)DBP 74 mmHg (JUL 12:)SpO2 97 % (JUL 12:) Pain assessment: Pain Assessment 07/12/2018 06:14 EST Preliminary Pain Scale 0 07/12/2018 06:14 EST Pain Symptoms Self Report No, able to self report . Respiratory: Adequate air exchange with orthodox of preoperative function.. Cardiovascular: Cardiovascular function is stable and has returned to preoperative levels.. Neurologic: Pt has returned to preoperative baseline.. Review / Management Condition: Stable. Assessment Anesthetic outcome No anesthetic complications noted. Plan Transfer/ Discharge: Patient can be discharged from PACU when criteria met. Condition good. Normal [facility] Coding Summary.on 07-16-2018 Coding Summary. CODING DATE: FINAL [facility] STATUS: Home w/ Home Health PAYOR: Sulma Grouper: 470 MS-DRG [employer] K[employer] JOINT REPLACEMENT OR REATTACHMENT OF LOWER EXTREMITY W/O RESIDENTIAL Low Trim 0 High Trim [phone] [...] 2 diabetes mellitus without complications Z79.4 1 care home (current) use of insulin E66.9 Y Obesity, unspecified F32.9 Y Major depressive disorder, single episode, unspecified PROCEDURES DOCTOR NAME DATE [id number] Replacement of Right Knee Joint Abrahan Pruett DO 07/12/2018 with Synthetic Substitute, Cemented, Open Approach [id number] Introduction of Anesthetic Yoni Noland JR, DO 07/12/2018 Agent into Peripheral Nerves and Plexi, Percutaneous Approach NOTE: The code number assigned matches the documented diagnosis and / or procedure in the patient's chart. However, the narrative phrase printed from the coding software may appear abbreviated, or result in slightly different terminology. Coded By: Radha Ch Date Saved: 07/16/2018 08:23 am Normal [facility] Coding Summary.on 07-15-2018 Coding Summary. CODING DATE: FINAL [facility] STATUS: PAYOR: Sulma ADMIT DX: REASON [...] CphT Date Saved: 07/15/2018 01:38 pm Normal [facility] Main OR Intraoperative Recor don 07-15-2018 Main OR Intraoperative Record IntraOp Document Type FT Summary Primary Physician: Abrahan Pruett DO Finalized Date/Time: 07/15/18 14:25:27 Pt. Name: MAVIS PICKARD Evelia Delcid./Sex: 1960 Female Med Rec #: [id number] Physician: Abrahan Pruett DO Financial #: [id number] Pt. Type: I Room/Bed: N316/01 Admit/Disch: 07/12/18 05:38:00 - 07/13/18 15:35:00 Institution: Case Times FT Entry 1 Patient Times In Room 07/12/18 07:44:00 Out Room 07/12/18 10:08:00 Procedure Times Start 07/12/18 08:19:00 Stop 07/12/18 10:05:00 Anesthesia Times Start 07/12/18 07:44:00 Stop 07/12/18 10:08:00 Block Timeout w/ 07/12/18 07:08:00 Anesthesia Last Modified By: Kelley Boggs CST 07/12/18 10:08:14 General Comments: [id number] - patient taken to block room hooked [...] Attendee Naz Alfred DO, Steven Rivera RN, [facility] Performed Anesthesiologist Surgeon - Primary RADIO ELECTRICIAN [employer]er Time In 07/12/18 07:44:00 07/12/18 08:02:00 07/12/18 07:44:00 Time Out 07/12/18 10:08:00 07/12/18 09:42:00 07/12/18 10:08:00 Procedure KNEE TOTAL KNEE TOTAL KNEE TOTAL ARTHROPLASTY(Right) ARTHROPLASTY(Right) ARTHROPLASTY(Right) Comments DR NOLAND SUPERVISING Last Modified By: Nahum RN, [place] 07/12/18 Nahum RN, [place] 07/12/18 Nahum RN, [place] 07/12/18 10:11:04 10:11:04 10:11:04 Entry 4 Entry 5 Entry 6 Case Attendee Nahum RN, [place] Harrington RN, Geovanna Montes CST Role Performed Political Analyst - Primary Political Analyst - Primary Scrub - Primary Time In 07/12/18 07:50:00 07/12/18 07:44:00 07/12/18 07:44:00 Time Out 07/12/18 10:08:00 07/12/18 09:44:00 07/12/18 09:44:00 Procedure KNEE TOTAL KNEE TOTAL KNEE TOTAL ARTHROPLASTY(Right) ARTHROPLASTY(Right) ARTHROPLASTY(Right) Comments Last Modified By: Nahum RN, [place] 07/12/18 Nahum RN, [place] 07/12/18 Nahum RN, [place] 07/12/18 10:11:04 10:11:04 10:11:04 Entry 7 Entry 8 Case Attendee Jean COMPLIANCE CONSULTANT, Meseret Mendiola RN, CNOR, CRNFA, ONC, Kristina Role Performed Scrub - Other Staff - Other Time In 07/12/18 07:46:00 07/12/18 07:44:00 Time Out 07/12/18 10:08:00 07/12/18 08:10:00 Procedure KNEE TOTAL KNEE TOTAL ARTHROPLASTY(Right) ARTHROPLASTY(Right) Comments OUTSIDE OFFSET PLATE PREPARATION SUPERVISOR Last Modified By: Nahum RN, [place] 07/12/18 Nahum RN, [place] 07/12/18 10:11:04 10:11:04 General Comments: CELESTINO CHOI REP PRESENT FOR PROCEDURE. Stacie ANGEL RNhide and skin colerer Protocols FT Pre-Care Text: Implements protective measures [...] RN, Marizol Roberson CST, Jean Javed CST, Meseret Muller Time Out Complete 07/12/18 08:16:00 Outcomes Met? [...] Condition Condition Grounding Pad [place] Sidhu RN Outcomes Met? Yes Last [...] 09:41:00 07/12/18 09:44:00 By Hernan RN, CNOR, CRNFA, Latrice Harrington RN, Coy RN, Emily A, ONCKristina Churchill [place] COMPLIANCE CONSULTANT, Geovanna E [place] COMPLIANCE CONSULTANT, Geovanna E COMPLIANCE CONSULTANT, Geovanna E Outcomes Met? Yes Yes Yes [...] to transfer/transport General Comments: REPORT GIVEN TO MILITARY ADMINISTRATIVE TECHNICIANEdu ANGEL RN Dressing/Packing FT Pre-Care Text: Administers [...] PURPLE Setting 375 mmHg 34 X 4 [9994-162-486][F] Equipment Number C Placement Right Upper Thigh [...] [6197-9-001][F] BONE [6197-9-001][F] Serial Number Lot Number [id number] Shingle Cutter [facility]ITALAlt[facility] -HOWSeatKarmaCA JIMBO Catalog ?# 6197-9-010 [F] 6197-9-010 [F] [...] BASEPLATE Serial Number Lot Number [id number] Shingle Cutter JIMBO JIMBO Catalog ?# [id number]-F-[id number] 5520-B-500 Size [...] Present Upon Arrival No Inserted LF 16FR [292608][F] Insertion Date/Time 07/12/18 08:02:00 Urine Residual 110 Insertion Site Uretheral Urine YELLOW/ CLOUDY URINE Characteristics Inserted By [place] Sidhu RN? No Outcomes Met? Yes Last Modified By: [...] BLANKET MISTRAL AIR Quantity 1 Aid TORSO [[id number]][F] Fluid/[place] Unit Mistral warming system Setting HIGH/43 Body Site Upper anterior torso Last Modified By: Latrice Harrington RN 07/12/18 08:35:52 Case Comments Finalized By: Kelley Boggs CST Document Signatures Signed By: [place] Sidhu RN 07/12/18 10:11 Kelley Boggs CST 07/15/18 14:25 Normal [facility] Sodiumon 07-15-2018 Sodium molar conc 134 mmol/L Low 135-145 [facility] Comment on above: Performed By: #### 1 [id number], 8743148, 0465515, 7860096, 645708796, 9425505, 6075290 ####[facility] [address] [place] [address] Inpatient Clinical Summaryon 07-14-2018 Inpatient Clinical Summary [address] [address] Clinical Summary Person Information:Name: MAVIS PICKARD Age: 58 Years : 1960 12:00 AM Sex: Female PCP: RASHAD TERAN DO Marital Status: Race:White Ethnicity:Non- or Language:Venezuelan Visit Id: Visit Reason:RIGHT KNEE OA Speciality: Acuity: Enc Type: Inpatient Med Service: Surgery Arrival:07/12/2018 5:38 AM Discharge: 07/13/2018 3:35 PM Dispo Type: Home w/ Home Health Address:[address] [place] [id number] Provider Notes: Diagnosis:1:Knee osteoarthritis; 2:Anemia; 3:Hyponatremia; 4:Asthma; [...] DO Follow up:With: Address: When: Abrahan Pruett [place] [id number] Business (1) 08/07/2018 2:00 PM With: Address: When: RASHAD TERAN [address] [place], [place] [id number] Business (1) Patient Education Information: Osteoarthritis; Hyponatremia, Sdsv-kt-Slic; Shine - Post Op Total Knee Arthroplasty (Revised 2016) (CUSTOM)Percocet 325 mg-5 mg Tab Normal [facility] Inpatient Patient Summaryon 07-14-2018 Inpatient Patient Summary [place] [id number] Patient Discharge Instructions PERSON INFORMATION Name: MAVIS PICKARD Date of : 1960 12:00 AM Current Date: 07/14/18 09:43:55 PHYSICIANS Admitting Phys[facility]AD [facility]ITAL[facility] Comment: Discharge Diagnosis: 1:Knee osteoarthritis; 2:Anemia; 3:Hyponatremia; [...] results: NoneFollow up:With: Address: When: Abrahan Pruett [address] [address] Business (1) 08/07/2018 2:00 PM With: Address: When: RASHAD TERAN [address] [place] [phone] Business (1) In the event that this physician does not participate in your insurance network, please consult with your insurance company to find a nearby participating provider. Comment: NEERAJ Crowe CYNTHIA S, have received the attached patient education materials/instructions and have verbalized understanding:Patient Signature __ Date Clinican/Nu rse Signature Date HERE ARE THE MEDICATION CHANGES THAT OCCURRED DURING YOUR HOSPITAL STAY New [facility]ations[id number] [address] [facility] [address] [place], [place] [id number], [phone]-oxycodon e (Percocet 325 mg-5 mg Tab) 1 [...] aerobics, that get your heart pumping. ? Fmpwu-ot-yknfda activities. These keep your joints limber.? Balance [...] have night sweats. FOR MORE INFORMATION? National [place] of Arthritis and Musculoskeletal and Skin Diseases: www.niams.nih.gov? National [place] on Aging: www.anahi.nih.gov? Citizen Of The [place] College of Rheumatology: www.rheumatology.org Document Released: 07/16/2006 Document Revised: 11/30/2014 Document Reviewed: 2014ExitCare? Patient Information ?2015 [employer]. This information is not intended to replace [...] 10/07/2012 Document Reviewed: 03/27/2012ExitCare? Patient Information ?2015 [employer]. This information is not intended to replace advice given to you by your health care provider. Make sure you discuss any questions you have with your health care provider.Abrahan Pruett D.O.Access [address] [phone] ATIVE TOTAL KNEE ARTHROPLASTY HOME DISCHARGE INSTRUCTIONSINCISION [...] will continue at home, possible with the nurseryman assistant of Home Health Physical Therapy or [...] too soon, you are considered an impaired bulk driver, and this could be a problem. [...] may report side effects to FDA at 0-867-LRQ-4075.What other drugs will affect acetaminophen and oxycodone?Narcotic [...] with acetaminophen and oxycodone, including prescription and aqom-wwa-wznfrhb medicines, vitamins, and herbal products. Not all [...] to ensure that the information provided by [employer]. ('[employer]') is accurate, up-to-date, and complete, but no guarantee is made to that effect. Drug information contained herein may be time sensitive. [employer] information has been compiled for use by healthcare practitioners and consumers in the [place] and therefore [employer] does not warrant that uses outside of the [place] are appropriate, unless specifically indicated otherwise. [employer]'s drug information does not endorse drugs, diagnose patients or recommend therapy. [employer] drug information is an informational resource designed [...] effective or appropriate for any given patient. [facility] does not assume any responsibility for any aspect of healthcare administered with the aid of information [facility] provides. The information contained herein is not intended to cover all possible uses, directions, precautions, warnings, drug interactions, allergic reactions, or adverse effects. If you have questions about the drugs you are taking, check with your doctor, nurse or pharmacist. Copyright 7155-0374 [employer]. Version: 16.01. Revision Date: 07/10/2017. Thank you for choosing [facility] Normal [facility] Auto Diffon 07-13-2018 Basophils Auto #/vol (Bld) 0.3 % Normal 0.0-2.0 [facility] Comment on above: Order Comment: Order Added by Discern Expert. Performed By: #### 1 3742057, 9999866, 8416526, 6927060, 189129637, 2564180, 0612126 ####[facility] [address] [place] [address] Basophils/Leukocytes Auto Pure number fraction (Bld) 0.0 E9/L Normal 0.0-0.2 [facility] Comment on above: Order Comment: Order Added by Discern Expert. Performed By: #### 1 8052131, 5657934, 7000701, 5429415, 127971046, 8088962, 2911123 ####[place] [address] [place] [address] Eosinophils/100 WBC Auto (Bld) 0.7 % Normal 0.0-8.0 [facility] Comment on above: Order Comment: Order Added by Discern Expert. Performed By: #### 1 4851889, 4003474, 9895020, 4905467, 300233612, 7094703, 9898020 ####[place] [address] [place] [address] Eosinophils/Leukocyte s Auto Pure number fraction (Bld) 0.1 E9/L Normal 0.0-0.5 [facility] Comment on above: Order Comment: Order Added by Discern Expert. Performed By: #### 1 5790600, 8495151, 0846551, 5047142, 589381201, 6406806, 4968687 ####[place] [address] [place] [address] Lymphocytes/100 WBC Auto (Bld) 14.2 % Normal 14.0-50.0 [facility] Comment on above: Order Comment: Order Added by Discern Expert. Performed By: #### 1 8721703, 7033468, 6311984, 3788089, 658877100, 5051324, 0526495 ####[address] [address] Lymphocytes/Leukocyte s Auto Pure number fraction (Bld) 1.4 E9/L Normal 1.0-4.0 [facility] Comment on above: Order Comment: Order Added by Discern Expert. Performed By: #### 1 4993028, 0019748, 6774780, 8196150, 206917211, 0731012, 7620675 ####[place] [address] [place] [address] Monocytes/100 WBC Auto (Bld) 12.3 % Normal 4.0-14.0 [facility] Comment on above: Order Comment: Order Added by Discern Expert. Performed By: #### 1 5862274, 4493247, 6291784, 4038020, 738806948, 6888919, 4863751 ####[facility] [address] [place] [address] Monocytes/Leukocytes Auto Pure number fraction (Bld) 1.2 E9/L High 0.2-1.0 [facility] Comment on above: Order Comment: Order Added by Discern Expert. Performed By: #### 1 3069424, 6697514, 5317728, 7907000, 111782490, 3069634, 6875977 ####[place] [address] [place] [address] Neutrophils/100 WBC Auto (Bld) 72.5 % Normal 36.0-75.0 [facility] Comment on above: Order Comment: Order Added by Discern Expert. Performed By: #### 1 6917980, 1960341, 4026620, 4960196, 644109809, 2573343, 1031412 ####[place] [address] [place] [address] Neutrophils/Leukocyte s Auto Pure number fraction (Bld) 7.3 E9/L Normal 2.0-7.5 [facility] Comment on above: Order Comment: Order Added by Discern Expert. Performed By: #### 1 8078253, 7354852, 8591545, 8668292, 054481001, 0568253, 6645988 ####[place] [address] [place] [address] BUNon 07-13-2018 Urea nitrogen mass conc 14 mg/dL Normal 5-21 [facility] Comment on above: Performed By: #### 1 8232064, 9060145, 7712001, 7585765, 861541960, 6021798, 7697939 ####[place] [address] [place] [address] CBC w/ Auto Diffon 8 Erythrocyte distribution width Auto Ratio (RBC) 14.2 % Normal 10.9-14.2 [facility] Comment on above: Performed By: #### 1 7997730, 1996474, 9925267, 5635118, 944974940, 3803787, 6548101 ####[facility] [address] [place] [address] Hematocrit Auto Volume Fraction (Bld) 33.8 % Low 34.0-46.0 [facility] Comment on above: Performed By: #### 1 4439758, 3997633, 3376890, 1760599, 127878589, 5415108, 7479679 ####[facility] [address] [place] [address] Hemoglobin mass conc (Bld) 11.5 g/dL Low 12.0-16.0 [facility] Comment on above: Performed By: #### 1 6281129, 4330459, 0990006, 5391519, 685071703, 8709989, 7231838 ####[place] [address] MCH Auto Entitic mass (RBC) 28.4 pg Normal 27.0-34.0 [facility] Comment on above: Performed By: #### 1 0792384, 2958673, 3942910, 1645194, 291106045, 4877987, 1672238 ####[place] [address] MCHC Auto mass conc (RBC) 34.0 g/dL Normal 31.4-39.3 [facility] Comment on above: Performed By: #### 1 5298819, 1239169, 4226739, 4275820, 396717509, 2239771, 0048060 ####[facility] [address] [place] [address] MCV Auto Entitic volume (RBC) 83.3 fL Normal 80.0-100.0 [facility] Comment on above: Performed By: #### 1 7149511, 8515215, 7577570, 0125944, 582004450, 4514459, 2940760 ####[place] [address] [place] [address] Platelet mean volume Auto Entitic volume (Bld) 8.6 fL Normal 6.4-10.8 [facility] Comment on above: Performed By: #### 1 6632602, 1618443, 6807595, 2701324, 325373852, 1107251, 9640608 ####[facility] [address] [place] [address] Platelets Auto #/vol (Bld) 260.0 E9/L Normal 150.0-500. 0 [facility] Comment on above: Performed By: #### 1 5726188, 2402514, 6520997, 3404737, 595277807, 5251014, 8488990 ####[facility] [address] [place] [address] RBC Auto #/vol (Bld) 4.0 E12/L Low 4.3-5.9 [facility] Comment on above: Performed By: #### 1 4459788, 6547479, 1967452, 4793614, 415198088, 3208613, 5987641 ####[facility] [address] [place] [address] WBC corrected for nucl RBC Auto #/vol (Bld) 10.1 E9/L Normal 4.0-11.0 [facility] Comment on above: Performed By: #### 1 3934747, 2251493, 9010778, 7690189, 314664863, 5993649, 9853670 ####[facility] [address] [place] [address] Creatinineon 07-13-2018 Creatinine mass conc 0.8 mg/dL Normal 0.5-1.3 [facility] Comment on above: Performed By: #### 1 9823114, 2452852, 8408036, 2995358, 605714085, 5689899, 2249114 ####[facility] [address] [place] [address] Interdisciplinary Note - Hubert e Manageron 07-13-2018 Interdisciplinary Note - Home Organizer Pt is awake and alert in involved in plan of care. PCP verified, and insurance information verified. DME discussed.Contact information provided and white board updated. Family present at this time, Pt previously rounded with Trupti RAM and DR. Pruett. pt is aware of anticiapted DC home today. Pt is set up with [facility] for [facility]. Dneies any further DC needs or concerns. Normal [facility] Interdisciplinary Note - Leann n 07-13-2018 [...] OT is planned, pt is participating in Afasq508 program and will have PT at home per program. Normal [facility] Lyteson 07-13-2018 Anion gap 3 molar conc 11 mmol/L Normal 6-16 [facility] Comment on above: Performed By: #### 1 7392116, 4033425, 4071201, 0371745, 665347345, 3392301, 6784361 ####[facility] [address] [place] [address] Chloride molar conc 95 mmol/L Low 101-111 [facility] Comment on above: Performed By: #### 1 4952519, 1999073, 0809741, 7671411, 753805351, 7295331, 0782895 ####[facility] [address] [place] [address] CO2 molar conc 29 mmol/L Normal 21-31 [facility] Comment on above: Performed By: #### 1 4521251, 0870603, 2852326, 6601660, 794966224, 6025724, 9173396 ####[facility] [address] [place] [address] Potassium molar conc 4.0 mmol/L Normal 3.5-5.3 [facility] Comment on above: Performed By: #### 1 6059011, 6423085, 9701975, 4608668, 865809040, 7579571, 5551376 ####[facility] [address] [place] [address] Sodium molar conc 131 mmol/L Low 135-145 [facility] Comment on above: Performed By: #### 1 9534315, 5728388, 4799482, 2673615, 851066178, 5258451, 3588353 ####[facility] [address] [place] [address] Operative Reporton 8 Operative Report Date of [...] multiple injections and joint fluid therapy. X-raysdemonstrate kjct-vo-ohol medial joint space loss. Please refer to [...] postoperative x-rays are satisfactory.Abrahan Pruett D.O.glsDictated: 07/12/2018 #[id number]: 07/13/2018 #[id number]: Abrhaan Pruett D.O. [facility] Comment on above: Result Comment: Elec [...] made to ensure accuracy, however, inadvertently computerized senior network architect mistakes may be present.Subjective Patient states that [...] Lymph Auto: 14.2 % (07/13/18 05:29:00 EST) [place] Auto: 12.3 % (07/13/18 05:29:00 EST) Eos Auto: 0.7 % (07/13/18 05:29:00 EST) Basophil Auto: 0.3 % (07/13/18 05:29:00 EST) Neutro Absolute: 7.3 E9/L (07/13/18 05:29:00 EST) Lymph Absolute: 1.4 E9/L (07/13/18 05:29:00 EST) [place] Absolute: 1.2 E9/L High (07/13/18 05:29:00 EST) [...] High (07/13/18 08:03:00 EST) POC Device SN: [id number] (07/13/18 08:03:00 EST) POC Username: GALDINO SONI [...] 8% Susp-Oral, 30 mL, Oral, BID, PRN [place] 5/325 Tab, 2 tab(s), Oral, q4hr, PRN [place] 5/325 Tab, 1 tab(s), Oral, q4hr, PRN [...] MDI, 2 puff(s), Inhalation, QID, PRN Normal [facility] Comment on above: Result Comment: Elec tronically Signed By: Trupti SCHMIDT\.br\Date and Time Signed: 07/13/18 10:54 EST\.br\Electronically Co-Signed By: Suzy LEO MD\.br\Date and Time Co-Signed: 07/13/18 11:23 EST eGFRon 07-13-2018 GFR/1.73 sq M predicted among blacks MDRD vol rate/area (S/P/Bld) mL/min/{1.73_m2} Normal >=59 [facility] Comment on above: Order Comment: Order added by Discern Expert. Result Comment: eGFR is race adjusted. AA=. Performed By: #### 1 2719532, 0199156, 4501989, 0859986, 355554971, 8338006, 1536916 ####[facility] [address] [place] [address] GFR/1.73 sq M predicted among non-blacks MDRD vol rate/area (S/P/Bld) mL/min/{1.73_m2} Normal >=59 [facility] Comment on above: Order Comment: Order added by Discern Expert. Result Comment: Supervisor Microwave elin kidney disease could be indicated at eGFR's of less than 60 mL/min/1.73m2. Kidney failure is indicated at less than 15 mL/min/1.73m2. Performed By: #### 1 4290278, 7732651, 7429519, 0598293, 875355297, 1686472, 2940432 ####[facility] [address] [place] [address] ABO/Rhon 07-12-2018 ABO/Rh Positive Invalid Interpretation Code [facility] Comment on above: Performed By: #### 1 7217880, 8454172, 64728738, 47247637 ####[facility] [address] [place] [address] ABO/Rh History Checkon 07-12 ABO/Rh History Check Verified Hx Blood Type Normal [facility] Comment on above: Performed By: #### 1 4359615, 6586417, 76638032, 71290352 ####[facility] [address] [place] [address] ABSCon 07-12-2018 ABSC Gel Interp Negative Normal [facility] Comment on above: Performed By: #### 1 3191903, 3254885, 65782755, 60657877 ####[facility] [address] [place] [address] Blood Bank ID#on 07-12-2018 BBID# [id number] Invalid Interpretation Code [facility] Comment on above: Performed By: #### 1 6983556, 0385805, 91992282, 01982094 ####[facility] [address] [place] [address] Consultation Noteon 07-12-20 Consultation Note Chief Complaint [...] made to ensure accuracy, however, inadvertently computerized senior network architect mistakes may be present.Attestation Case reviewed and [...] 8% Susp-Oral, 30 mL, Oral, BID, PRN [place] 5/325 Tab, 2 tab(s), Oral, q4hr, PRN [place] 5/325 Tab, 1 tab(s), Oral, q4hr, PRN [...] High (07/12/18 11:53:00 EST) POC Device SN: [id number] (07/12/18 11:53:00 EST) POC Username: POC Username [...] is noted from recent placement. Signed By: Issa Agudelo MD [facility] Comment on above: Result Comment: Elec [...] not cover 360 program and will need [facility] at discharge. Pt is agreeable with this. Verified PCP and insurance, discussed INPT status. Pt denies any questions or concerns about dc plans. Whiteboard updated. Normal [facility] Interdisciplinary Note - PTo n 07-12-2018 Interdisciplinary Note - PT PT Evaluation completed with an AM PAC score of 17/24. Pt performing bed mobility with SBA and transfers with CGA. Pt was able to ambulate 65 feet with FWW with CGA. Will follow daily. Please see PT treatment note for further recommendations Normal [facility] Main OR PACU I Recordon 06-29 Main OR PACU I Record PACU Phase I Docum ent Type FT Summary Primary Physician: Abrahan Pruett DO Finalized Date/Time: 07/12/18 12:16:59 Pt. Name: MAVIS PICKARD Evelia Delcid./Sex: 1960 Female Med Rec #: [id number] Physician: Abrahan Pruett DO Financial #: [id number] Pt. Type: I Room/Bed: N316/01 Admit/Disch: 07/12/18 05:38:00 - Institution: Case Times [...] Level Acuity Level I Last Modified By: Cleemntina Wilks RN 07/12/18 12:16:58 Finalized By: Clementina Wilks RN Document Signatures Signed By: Clementina Wilks RN 07/12/18 12:16 Normal [facility] Main OR Preoperative Recordo n 07-12-2018 Main OR Preoperative Record PreOp Document Type FT Summary Primary Physician: Abrahan Pruett DO Finalized Date/Time: 07/12/18 08:26:12 Pt. Name: MAVIS PICKARD/Sex: 1960 Female Med Rec #: [id number] Physician: Abrahan Pruett DO Financial #: [id number] Pt. Type: A Room/Bed: [place] [address] Admit/Disch: 07/12/18 05:38:12 - Institution: Case Times [...] By: Latrice Harrington RN 07/12/18 08:26 Normal [facility] Operative Reporton 8 Operative Report Date of Surgery: 07/12/2018SURGEON: Yoni Noland Jr., TaviaPREOPERATIVE DIAGNOSIS: Postoperative pain control requested by patientand [...] anesthesia for the proposed procedure.Yoni Noland Jr., TaviaglsDictated: 07/12/2018 #[id number]: 07/12/2018 #[id number]: Yoni Noland Jr., D.O. [facility] Comment on above: Result Comment: Elec tronically Signed By: Yoni Noland JR, DObr\Date and Time Signed: 07/12/18 16:17 EST Patient Education - Texton 1 09-12-2017 Patient Education - Text Abrahan Pruett D.O.Access [address] [place], [place] [id number] ATIVE TOTAL KNEE ARTHROPLASTY HOME DISCHARGE INSTRUCTIONSINCISION [...] will continue at home, possible with the nurseryman assistant of Home Health Physical Therapy or [...] too soon, you are considered an impaired bulk driver, and this could be a problem. It is therefore advised not to drive until after your first office visit following surgeryFOLLOW-UP OFFICE VISIT: Alina Pruett D.O.Revised: 2010 [facility] Progress Note-Physicianon Protein mass conc Patient: [...] [F] 0.4 mg 0.2 mL, IV Push, m9emotujcdgrkingo 25 mg/mL Inj [F] 12.5 mg 0.5 mL, IV Push, q2min Problem list: All ProblemsDiabetes mellitus, insulin dependent (IDDM), controlled / SNOMED CT 412280607 / ConfirmedAsthma / SNOMED CT 503443872 / ConfirmedLocalized osteoarthritis of knee / SNOMED CT 894527696 / Confirmed, Active Problems (3)Asthma Diabetes mellitus, insulin dependent (IDDM), controlled Localized osteoarthritis of knee Histories Past Medical History: No active or resolved past medical history items have been selected or recorded. Family History: HypothyroidismSisterPrimar y malignant neoplasm of lungMotherPrimary malignant neoplasm of female genital organMotherDiabetes mellitus type 2Father Procedure history: Endometrial ablation (315788021).achilles tendon lengthening, left. Social History Social & Psychosocial XpbfjqMglwbbb00/03/2018 Risk Assessment: Low RiskSubstance Abuse07/01/2018 Risk Assessment: Denies Substance YdfogNtjvecv52/03/2018 Risk Assessment: Denies Tobacco Use. Physical Examination Vital Signs (last 24 hrs) Last Charted Temp Oral 36.4 DegC (JUL 12 06:)Heart Rate Apical 84 bpm (JUL 12:)Resp Rate 16 br/min (JUL 12:)SBP H 156 mmHg (JUL 12:)DBP 74 mmHg (JUL 12:)SpO2 97 % (JUL 12:) Airway: Normal oral/pharyngeal anatomy.. Respiratory: Adequate air exchange.. Cardiovascular: Adequate perfusion and function. Review / Management Results review: No qualifying data available. Plan Citizen Of The [place] Society of Anesthesiologists (ASA) physical status classification: Class III. Anesthetic Preoperative Plan Anesthesia: Regional (Spinal, ADDUCTOR CANAL BLOCK). Anesthetic plan, risks, benefits, and alternatives discussed with the patient and/or family. Pt. and/or family present and agree to proceed as planned.. Discussed the importance of abstaining from tobacco products, and offered counseling if pt. desired.. Normal [facility] Comment on above: Result Comment: Elec tronically Signed By: Ligia DUKE DO, Yoni Grimm.kevan\Date and Time Signed: 07/12/18 08:54 EST UA With Cult Reflexon 2017 Bilirubin Ql (U) Negative Normal Negative [facility] Comment on above: Performed By: #### 1 [id number] ####[facility] [address] [facility] [place] [address] Clarity Nom (U) CLEAR Normal Clear [facility] Comment on above: Performed By: #### 1 [id number] ####[facility] [address] [place] [address] Color Auto Nom (U) YELLOW Normal Yellow [facility] Comment on above: Performed By: #### 1 [id number] ####[facility] Buvkcihgjn083 [facility] [place] [address] Epithelial cells.squamous LM.HPF #/area (Urine sed) 0-2 Normal 0-2 [facility] Comment on above: Performed By: #### 1 [id number] ####[facility] Pprxejwxag885 [place] [address] Glucose Test strip mass conc (U) Negative Normal Negative [facility] Comment on above: Performed By: #### 1 [id number] ####[facility] Thscsgzoux147 [place] [address] Hemoglobin Test strip Ql (U) Negative Normal Negative [facility] Comment on above: Performed By: #### 1 [id number] ####[facility] Rpnqnjhymp509 [address] [place] [address] Ketones mass conc (U) Negative Normal Negative [facility] Comment on above: Performed By: #### 1 [id number] ####[facility] Ihacgstcba591 [place] [address] [place].plasma/Lithiu m.RBC mass ratio (Bld) 0-3 Normal 0-3 [facility] Comment on above: Performed By: #### 1 [id number] ####[facility] W[address]bphqjht355 [place] [address] Mucus LM Ql (Urine sed) TRACE Normal [facility] Comment on above: Performed By: #### 1 [id number] ####[address] [address] Nitrite Test strip Ql (U) Negative Normal Negative [facility] Comment on above: Performed By: #### 1 1220733 ####[address] [address] pH Test strip (U) 5.5 [pH] Invalid Interpretation Code 5.0-9.0 [facility] Comment on above: Performed By: #### 1 [id number] ####[address] [address] Protein mass conc (U) Negative Normal Negative [facility] Comment on above: Performed By: #### 1 [id number] ####[address] [address] Specific gravity Relative Density (U) >=1.030 Invalid Interpretation Code 1.005-1.03 0 [facility] Comment on above: Performed By: #### 1 [id number] ####[address] [address] UA Spec Desc Salguero Normal [facility] Comment on above: Performed By: #### 1 2367714 ####[address] [address] Urobilinogen Test strip Qn (U) 0.2 {Brittany'U}/dL Normal 0.0-1.0 [facility] Comment on above: Performed By: #### 1 7805814 ####[address] [address] WBC Auto Ql (U) Negative Normal Negative [facility] Comment on above: Performed By: #### 1 [id number] ####[address] [address] WBC LM.HPF #/area (Urine sed) 0-5 Normal 0-5 [facility] Comment on above: Performed By: #### 1 [id number] ####[facility] [address]slq198 [place] [address] XR Knee 1 or 2 Views Righton [...] Agudelo MD Transcribed by: DENNY Technologist: MARAL Diaz [facility] Coding Summary.on 07-03-2018 Coding Summary. CODING DATE: FINAL [facility] STATUS: Home (Routine DC) PAYOR: Sulma [...] Nesbitt CphT Date Saved: 07/02/2018 09:07 am [facility] Coding Summary. CODING DATE: FINAL [facility] STATUS: Home (Routine DC) PAYOR: Sulma [...] CphT Date Saved: 07/02/2018 09:07 am Normal [facility] ABO/Rhon 07-02-2018 ABO/Rh Positive Invalid Interpretation Code [facility] Comment on above: Performed By: #### 2 [id number] ####[facility] [address]aimfxzc356 [place] [address] BUNon 07-02-2018 Urea nitrogen mass conc 12 mg/dL Normal 5-21 [facility] Comment on above: Performed By: #### 1 5630514, 6674356, 4076649, 5175733, 925380602, 4112237, 8861261 ####[facility] Gpctfdxtyl725 [place] [address] CBC w/Indiceson 07-02-2018 Erythrocyte distribution width Auto Ratio (RBC) 14.2 % Normal 10.9-14.2 [facility] Comment on above: Performed By: #### 1 4559825, 7696622, 7717576, 0710745, 510611396, 2594430, 1815099 ####[facility] Fyjq[address]ldqn264 [place] [address] Hematocrit Auto Volume Fraction (Bld) 38.7 % Normal 34.0-46.0 [facility] Comment on above: Performed By: #### 1 0009265, 3562990, 7443903, 1707432, 153458359, 0367979, 0772910 ####[facility] [address]rpenejb[address] [place] [address] Hemoglobin mass conc (Bld) 13.0 g/dL Normal 12.0-16.0 [facility] Comment on above: Performed By: #### 1 7271743, 4741747, 2416486, 0938447, 301228415, 2488090, 2979758 ####[facility] [address] [place] [address] MCH Auto Entitic mass (RBC) 27.8 pg Normal 27.0-34.0 [facility] Comment on above: Performed By: #### 1 8375471, 3663548, 5765100, 2291671, 060301112, 8459521, 2303175 ####[address] [place] [address] MCHC Auto mass conc (RBC) 33.5 g/dL Normal 31.4-39.3 [facility] Comment on above: Performed By: #### 1 0096997, 1943702, 4905413, 1286758, 270134010, 6531853, 3362731 ####[place] [address] MCV Auto Entitic volume (RBC) 83.0 fL Normal 80.0-100.0 [facility] Comment on above: Performed By: #### 1 2101891, 2797006, 9974531, 3466539, 851383803, 1953385, 9231246 ####[place] [address] Platelet mean volume Auto Entitic volume (Bld) 9.1 fL Normal 6.4-10.8 [facility] Comment on above: Performed By: #### 1 1406770, 2822711, 0955377, 1655771, 299821753, 6312627, 1447667 ####[place] [address] Platelets Auto #/vol (Bld) 282.0 E9/L Normal 150.0-500. 0 [facility] Comment on above: Performed By: #### 1 4602888, 7853008, 9888872, 2298739, 445592521, 0086939, 6860696 ####[address] [address] RBC Auto #/vol (Bld) 4.7 E12/L Normal 4.3-5.9 [facility] Comment on above: Performed By: #### 1 0367815, 2385426, 9585690, 6484371, 854279919, 5998302, 6737128 ####[facility] [address]xedh263 [place] [address] WBC corrected for nucl RBC Auto #/vol (Bld) 8.0 E9/L Normal 4.0-11.0 [facility] Comment on above: Performed By: #### 1 8634318, 8831155, 9702181, 0109534, 103248579, 9398416, 1293393 ####[facility] [address]fisiedsqp556 [place] [address] Creatinineon 07-02-2018 Creatinine mass conc 0.7 mg/dL Normal 0.5-1.3 [facility] Comment on above: Performed By: #### 1 8693972, 0472685, 7148136, 7170123, 568131628, 8708172, 7215850 ####[facility] [address]xxlbqng937 [place] [address] Glu Fastingon 07-02-2018 Glucose mass conc 163 mg/dL High 55-99 [facility] Comment on above: Performed By: #### 1 6376130, 2110628, 4396984, 8140040, 845260633, 7605738, 3770332 ####[facility] [address] [place] [address] BjiM8icg 07-02-2018 Hemoglobin A1c/Hemoglobin.total Calculated mass fraction (Bld) 9.3 % High <=5.9 [facility] Comment on above: Performed By: #### 1 3935608, 3089067, 1956245, 0473775, 117537107, 6234702, 1255675 ####[facility] S[address]ql[address]qrafj[address] [place] [address] Lyteson 07-02-2018 Anion gap 3 molar conc 11 mmol/L Normal 6-16 [facility] Comment on above: Performed By: #### 1 3163054, 8973332, 5765852, 1799607, 887183659, 8442495, 9261853 ####[facility] [address]rfi[address] [place] [address] Chloride molar conc 99 mmol/L Low 101-111 [facility] Comment on above: Performed By: #### 1 0590130, 3698273, 4300309, 0146875, 160933692, 2834185, 0760371 ####[facility] By[address]zkfsdr149 [place] [address] CO2 molar conc 28 mmol/L Normal 21-31 [facility] Comment on above: Performed By: #### 1 6300259, 8884124, 1642728, 3682743, 464045535, 2839484, 8733066 ####[facility] [address] [place] [address] Potassium molar conc 4.0 mmol/L Normal 3.5-5.3 [facility] Comment on above: Performed By: #### 1 9501889, 8468248, 7469331, 6946974, 696328879, 5287287, 1346032 ####[facility] Idd[address]xjxzne169 [place] [address] Sodium molar conc 134 mmol/L Low 135-145 [facility] Comment on above: Performed By: #### 1 7626039, 0903275, 6363028, 9958516, 503651511, 9798330, 7163989 ####[facility] Vrimgkjqsf385 [place] [address] UA With Cult Reflexon 2017 Bilirubin Ql (U) Negative Normal Negative [facility] Comment on above: Performed By: #### 1 0600585 ####[facility] Dbsollxskn564 [place] [address] Clarity Nom (U) CLEAR Normal Clear [facility] Comment on above: Performed By: #### 1 0881085 ####[facility] Skiyyldsig120 [place] [address] Color Auto Nom (U) YELLOW Normal Yellow [facility] Comment on above: Performed By: #### 1 9103134 ####[facility] [address] [place] [address] Epithelial cells.squamous LM.HPF #/area (Urine sed) 0-2 Normal 0-2 [facility] Comment on above: Performed By: #### 1 1144122 ####[facility] [address] [place] [address] Glucose Test strip mass conc (U) Negative Normal Negative [facility] Comment on above: Performed By: #### 1 5723995 ####[facility] [address] [place] [address] Hemoglobin Test strip Ql (U) Negative Normal Negative [facility] Comment on above: Performed By: #### 1 9585233 ####[address] [address] Ketones mass conc (U) Negative Normal Negative [facility] Comment on above: Performed By: #### 1 7606771 ####[address] [address] [place].plasma/Lithiu m.RBC mass ratio (Bld) 0-3 Normal 0-3 [facility] Comment on above: Performed By: #### 1 0983695 ####[facility] [address] [place] [address] Mucus LM Ql (Urine sed) TRACE Normal [facility] Comment on above: Performed By: #### 1 7350110 ####[facility] [address] [place] [address] Nitrite Test strip Ql (U) Negative Normal Negative [facility] Comment on above: Performed By: #### 1 3566496 ####[facility] [address] [place] [address] pH Test strip (U) 7.0 [pH] Invalid Interpretation Code 5.0-9.0 [facility] Comment on above: Performed By: #### 1 3134495 ####[facility] [address] [place] [address] Protein mass conc (U) Negative Normal Negative [facility] Comment on above: Performed By: #### 1 4980447 ####[facility] [address]tef[address]921 [place] [address] Specific gravity Relative Density (U) 1.020 Invalid Interpretation Code 1.005-1.03 0 [facility] Comment on above: Performed By: #### 1 1390526 ####[facility] [address]quurh[address] [place] [address] UA Spec Desc Clean Catch Normal [facility] Comment on above: Performed By: #### 1 4776236 ####[facility] Qztiohbnkh195 [place] [address] Urobilinogen Test strip Qn (U) 0.2 {Brittany'U}/dL Normal 0.0-1.0 [facility] Comment on above: Performed By: #### 1 8961318 ####[facility] [address]xdmwdg191 [place] [address] WBC Auto Ql (U) Negative Normal Negative [facility] Comment on above: Performed By: #### 1 5777683 ####[facility] [address]zcsd498 [place] [address] WBC LM.HPF #/area (Urine sed) 0-5 Normal 0-5 [facility] Comment on above: Performed By: #### 1 3903641 ####[facility] Ewbxypihtq900 [place] [address] eGFRon 07-02-2018 GFR/1.73 sq M predicted among blacks MDRD vol rate/area (S/P/Bld) mL/min/{1.73_m2} Normal >=59 [facility] Comment on above: Order Comment: Order added by Discern Expert. Result Comment: eGFR is race adjusted. AA=. Performed By: #### 1 4019330, 2305324, 2075763, 7793959, 198401926, 2350902, 5309000 ####[facility] [address]cll[address] [place] [address] GFR/1.73 sq M predicted among non-blacks MDRD vol rate/area (S/P/Bld) mL/min/{1.73_m2} Normal >=59 [facility] Comment on above: Order Comment: Order added by Discern Expert. Result Comment: Supervisor Microwave elin kidney disease could be indicated at eGFR's of less than 60 mL/min/1.73m2. Kidney failure is indicated at less than 15 mL/min/1.73m2. Performed By: #### 1 4864728, 1204063, 8861947, 0769141, 066317047, 1864778, 7597361 ####[facility] [address]rmyt[address] [place] [address] XR Chest 2 Viewson 8 XR Chest [...] Arevalo M.D. Transcribed by: shama Technologist: DARBY Normal [facility] POINT OF CARE GLUCOSEon 06-30 Glucose mass conc 127 mg/dL Critically high 74-106 [facility] Comment on above: Performed By: #### P OCGLUC ####[facility] [address] [place] [address]Ger[address] Anai XR ANKLE LT 2Von 07-27-2017 XR ANKLE LT 2V [address] [place] [address] Patient: MAVIS PICKARD Exam Date: 07/27/2017DOB: 1960 Gender:F : JUSTINA Thorpe GIOTREVA Admission #: [id number] : Order #: [id number] HERE TO VIEW EXAM RADIOLOGY REPORT PROCEDURE: [...] Price M.D. on 07/27/2017 at 14:46 Normal [facility] XR ANKLE LT 2V [address] [place] [address] Patient: MAVIS PICKARD Exam Date: 07/27/2017DOB: 1960 Gender:F : JUSTINA MILLER Admission #: [id number] : Order #: [id number] HERE TO VIEW EXAM RADIOLOGY REPORT PROCEDURE: [...] M.D. on 07/27/2017 at 14:07 Normal [facility] PROF CHEM 8 (BAS METB)on Anion gap 15.6 mmol/L Normal [facility] Comment on above: Performed By: #### B MP ####[facility] Ps[address] BUN/Creatinine Ratio 15.6 mg/mg Normal [facility] Comment on above: Performed By: #### B MP ####[facility] S[address] Anai Calcium 9.4 mg/dL Normal 8.4-10.2 [facility] Comment on above: Performed By: #### B MP ####[facility] [address] [place] [address]Gerken Anai Chloride 101 mmol/L Normal 98-107 [facility] Comment on above: Performed By: #### B MP ####[facility] [address] [place] [address]Gerken Anai CO2 30.0 mmol/L Normal 22.0-30.0 [facility] Comment on above: Performed By: #### B MP ####[facility] [address] [place] [address]Gerken Anai Creatinine 0.82 mg/dL Normal 0.52-1.04 [facility] Comment on above: Performed By: #### B MP ####[facility] [address] [place] [address]Gerken Anai eGFR (non-black) mL/min/{1.73_m2} Normal >=60 [facility] Comment on above: Performed By: #### B MP ####[facility] [address] [place] [address]Gerken Anai Glucose mass conc 126 mg/dL Critically high 74-106 [facility] Comment on above: Performed By: #### B MP ####[facility] [address] [place] [address] Anai Potassium molar conc 4.3 mmol/L Normal 3.4-5.0 [facility] Comment on above: Performed By: #### B MP ####[facility] [address] [place] [address]Gerken Anai Sodium 142 mmol/L Normal 137-145 [facility] Comment on above: Performed By: #### B MP ####[facility] Tw[address] Anai Urea nitrogen 13.0 mg/dL Normal 7.0-17.0 [facility] Comment on above: Performed By: #### B MP ####[facility] [address] [place] [address]Gerken Anai GLYCOHEMOGLOBIN A1Con 2016 Glucose mass conc 229 mg/dL Normal [facility] Comment on above: Performed By: #### A 1C ####[facility] [address] [place], [place] [address]Lmvzvq Anai Hemoglobin A1c/Hemoglobin.total mass fraction (Bld) 9.6 % Critically high <=6.0 [facility] Comment on above: Performed By: #### A 1C ####[facility] [address] [place] [address]Gerken Anai PROF CHEM 8 (BAS METB)on Anion gap 12.2 mmol/L Normal [facility] Comment on above: Performed By: #### B MP ####[facility] [address] [place], [place] [address]Gerken Anai BUN/Creatinine Ratio 18.8 mg/mg Normal [facility] Comment on above: Performed By: #### B MP ####[facility] [address] [place], [place] [address]Gerken Anai Calcium 9.7 mg/dL Normal 8.4-10.2 [facility] Comment on above: Performed By: #### B MP ####[facility] [address] [place], [place] [address]Gerken Anai Chloride 99 mmol/L Normal 98-107 [facility] Comment on above: Performed By: #### B MP ####[facility] [address] [place] [address]Ger[place] Anai CO2 32.0 mmol/L Critically high 22.0-30.0 [facility] Comment on above: Performed By: #### B MP ####[facility] [address] [place], [place] [address]Gerken Anai Creatinine 0.81 mg/dL Normal 0.52-1.04 [facility] Comment on above: Performed By: #### B MP ####[facility] [address] [place], [place] [address]Gerken Anai eGFR (non-black) mL/min/{1.73_m2} Normal >=60 [facility] Comment on above: Performed By: #### B MP ####[facility] [address] [place], [place] [address]Lmktxb Karen Glucose mass conc 126 mg/dL Critically high 74-106 [facility] Comment on above: Performed By: #### B MP ####[facility] By[address]r29[address] [place], [place] [address]Mnfmvt Anai Potassium molar conc 4.1 mmol/L Normal 3.4-5.0 [facility] Comment on above: Performed By: #### B MP ####[facility] [address]85[address] [place], [place] [address]Mdnpks Anai Sodium 140 mmol/L Normal 137-145 [facility] Comment on above: Performed By: #### B MP ####[facility] Ny[address]ut[address]ix9083 [place], [place] [address]Uztzum Anai Urea nitrogen 15.0 mg/dL Normal 7.0-17.0 [facility] Comment on above: Performed By: #### B MP ####[facility] [address] [place], [place] [address] ANKLE LT WO CONon 017 CT ANKLE LT WO CON [address] [place] [address] Patient: MAVIS PICKARD Exam Date: 03/07/2017DOB: 1960 Gender:F : JUSTINA AmaliaEdu MILLER Admission #: [id number] : DR RASHAD TERAN Order #: [id number] HERE TO VIEW EXAM RADIOLOGY REPORT PROCEDURE: [...] Price M.D. on 03/07/2017 at 10:32 Normal [facility] Vital Signs Date Time Vital Sign Value Performing Clinician Facility 06-14-2023 08:30-0500 Body height 170.18 cm Rashad Mast Other [facility] Other 06-14-2023 08:30-0500 Body mass index (BMI) [Ratio] 36.18 kg/m2 Rashad Mast Other [facility] Other 06-14-2023 08:30-0500 Body temperature 97.6 [degF] Rashad Mast Other [facility] Other 06-14-2023 08:30-0500 Body weight 104.78 kg Rashad Mast Other [facility] Other 06-14-2023 08:30-0500 Diastolic blood pressure 78 mm[Hg] Rashad Mast Other [facility] Other 06-14-2023 08:30-0500 Respiratory rate 18 /min Rashad Mast Other [facility] Other 06-14-2023 08:30-0500 SaO2% (BldA) [Mass fraction] 96 % Rashad Mast Other [facility] Other 06-14-2023 08:30-0500 Systolic blood pressure 124 mm[Hg] Rashad Mast Other [facility] Other 06-03-2023 01:33-0400 Diastolic blood pressure 78 mm[Hg] DO Rashad Mast Work Phone: [facility] 06-03-2023 01:33-0400 Heart rate 75 /min DO Rashad Mast Work Phone: [facility] 06-03-2023 01:33-0400 Respiratory rate 16 /min DO Rashad Mast Work Phone: [facility] 06-03-2023 01:33-0400 SaO2% (BldA) [Mass fraction] 98 % DO Rashad Mast Work Phone: [facility] 06-03-2023 01:33-0400 Systolic blood pressure 140 mm[Hg] DO Rashad Mast Work Phone: [facility] 06-02-2023 21:56-0400 Body height 170.18 cm DO Rashad Mast Work Phone: [facility] 06-02-2023 21:56-0400 Body temperature 98.1 [degF] DO Rashad Mast Work Phone: [facility] 06-02-2023 21:56-0400 Body weight 116.57 kg DO Rashad Mast Work Phone: [facility] 05-21-2023 08:00-0400 Body height 170.18 cm Rashad Mast Other [facility] Other 05-21-2023 08:00-0400 Body mass index (BMI) [Ratio] 40.2 kg/m2 Rashad Mast Other [facility] Other 05-21-2023 08:00-0400 Body temperature 96.5 [degF] Rashad Mast Other [facility] Other 05-21-2023 08:00-0400 Body weight 116.44 kg Rashad Mast Other [facility] Other 05-21-2023 08:00-0400 Diastolic blood pressure 80 mm[Hg] Rashad Mast Other [facility] Other 05-21-2023 08:00-0400 Respiratory rate 18 /min Rashad Mast Other [facility] Other 05-21-2023 08:00-0400 SaO2% (BldA) [Mass fraction] 97 % Rashad Mast Other [facility] Other 05-21-2023 08:00-0400 Systolic blood pressure 124 mm[Hg] Rashad Mast Other [facility] Other 03-28-2023 08:53-0400 Body height 170.18 cm DO Rashad Mast Work Phone: [facility] 03-28-2023 08:53-0400 Body mass index (BMI) [Ratio] 40.7 kg/m2 DO Rashad Mast Work Phone: [facility] 03-28-2023 08:53-0400 Body weight 117.93 kg DO Rashad Mast Work Phone: [facility] 03-28-2023 08:47-0400 Body temperature 97.7 [degF] DO Rashad Mast Work Phone: [facility] 03-28-2023 08:47-0400 Diastolic blood pressure 83 mm[Hg] DO Rashad Mast Work Phone: [facility] 03-28-2023 08:47-0400 Heart rate 74 /min DO Rashad Mast Work Phone: [facility] 03-28-2023 08:47-0400 Respiratory rate 20 /min DO Rashad Mast Work Phone: [facility] 03-28-2023 08:47-0400 Systolic blood pressure 152 mm[Hg] DO Rashad Mast Work Phone: [facility] 02-26-2023 08:00-0400 Body height 170.18 cm Rashad Mast Other [facility] Other 02-26-2023 08:00-0400 Body mass index (BMI) [Ratio] 41.05 kg/m2 Rashad Mast Other [facility] Other 02-26-2023 08:00-0400 Body weight 118.89 kg Rashad Mast Other [facility] Other 02-26-2023 08:00-0400 Diastolic blood pressure 78 mm[Hg] Rashad Mast Other [facility] Other 02-26-2023 08:00-0400 Respiratory rate 18 /min Rashad Mast Other [facility] Other 02-26-2023 08:00-0400 SaO2% (BldA) [Mass fraction] 97 % Rashad Mast Other [facility] Other 02-26-2023 08:00-0400 Systolic blood pressure 140 mm[Hg] Rashad Mast Other [facility] Other 02-08-2023 10:00-0400 Body height 170.18 cm Rashad Mast Other [facility] Other 02-08-2023 10:00-0400 Body mass index (BMI) [Ratio] 40.91 kg/m2 Rashad Mast Other [facility] Other 07-13-2023 10:00-0400 Body temperature 97.6 [degF] Rashad Mast Other [facility] Other 02-08-2023 10:00-0400 Body weight 118.48 kg Rashad Mast Other [facility] Other 02-08-2023 10:00-0400 Diastolic blood pressure 68 mm[Hg] Rashad Mast Other [facility] Other 02-08-2023 10:00-0400 Respiratory rate 18 /min Rashad Mast Other [facility] Other 02-08-2023 10:00-0400 SaO2% (BldA) [Mass fraction] 98 % Rashad Mast Other [facility] Other 02-08-2023 10:00-0400 Systolic blood pressure 120 mm[Hg] Rashad Mast Other [facility] Other 10-16-2022 09:45-0400 Body height 170.18 cm Rashad Mast Other [facility] Other 10-16-2022 09:45-0400 Body mass index (BMI) [Ratio] 41.06 kg/m2 Rasahd Mast Other [facility] Other 10-16-2022 09:45-0400 Body temperature 98.6 [degF] Rashad Mast Other [facility] Other 10-16-2022 09:45-0400 Body weight 118.93 kg Rashad Mast Other [facility] Other 10-16-2022 09:45-0400 Diastolic blood pressure 80 mm[Hg] Rashad Mast Other [facility] Other 10-16-2022 09:45-0400 Respiratory rate 18 /min Rashad Mast Other [facility] Other 10-16-2022 09:45-0400 SaO2% (BldA) [Mass fraction] 99 % Rashad Mast Other [facility] Other 10-16-2022 09:45-0400 Systolic blood pressure 122 mm[Hg] Rashad Mast Other [facility] Other 08-14-2022 09:15-0500 Body height 170.18 cm Rashad Mast Other [facility] Other 08-14-2022 09:15-0500 Body mass index (BMI) [Ratio] 41.22 kg/m2 Rashad Mast Other [facility] Other 08-14-2022 09:15-0500 Body temperature 96.7 [degF] Rashad Mast Other [facility] Other 08-14-2022 09:15-0500 Body weight 119.39 kg Rashad Mast Other [facility] Other 08-14-2022 09:15-0500 Diastolic blood pressure 80 mm[Hg] Rashad Mast Other [facility] Other 08-14-2022 09:15-0500 Respiratory rate 18 /min Rashad Mast Other [facility] Other 08-14-2022 09:15-0500 SaO2% (BldA) [Mass fraction] 96 % Rashad Mast Other [facility] Other 08-14-2022 09:15-0500 Systolic blood pressure 110 mm[Hg] Rashad Mast Other [facility] Other 06-26-2022 09:45-0500 Body height 170.18 cm Rashad Mast Other [facility] Other 06-26-2022 09:45-0500 Body mass index (BMI) [Ratio] 42.33 kg/m2 Rashad Mast Other [facility] Other 06-26-2022 09:45-0500 Body temperature 97.2 [degF] Rashad Mast Other [facility] Other 06-26-2022 09:45-0500 Body weight 122.61 kg Rashad Mast Other [facility] Other 06-26-2022 09:45-0500 Diastolic blood pressure 84 mm[Hg] Rashad Mast Other [facility] Other 06-26-2022 09:45-0500 Respiratory rate 18 /min Rashad Mast Other [facility] Other 06-26-2022 09:45-0500 SaO2% (BldA) [Mass fraction] 97 % Rashad Mast Other [facility] Other 06-26-2022 09:45-0500 Systolic blood pressure 124 mm[Hg] Rashad Mast Other [facility] Other 05-22-2022 11:45-0400 Body height 170.18 cm Rashad Mast Other [facility] Other 05-22-2022 11:45-0400 Body mass index (BMI) [Ratio] 42.66 kg/m2 Rashad Mast Other [facility] Other 05-22-2022 11:45-0400 Body temperature 97 [degF] Rashad Mast Other [facility] Other 05-22-2022 11:45-0400 Body weight 123.56 kg Rashad Mast Other [facility] Other 05-22-2022 11:45-0400 Diastolic blood pressure 76 mm[Hg] Rashad Mast Other [facility] Other 05-22-2022 11:45-0400 Respiratory rate 18 /min Rashad Mast Other [facility] Other 05-22-2022 11:45-0400 SaO2% (BldA) [Mass fraction] 96 % Rashad Mast Other [facility] Other 05-22-2022 11:45-0400 Systolic blood pressure 120 mm[Hg] Rashad Mast Other [facility] Other 03-27-2022 10:30-0400 Body height 170.18 cm Rashad Mast Other [facility] Other 03-27-2022 10:30-0400 Body mass index (BMI) [Ratio] 42.53 kg/m2 Rashad Mast Other [facility] Other 03-27-2022 10:30-0400 Body temperature 98.1 [degF] Rashad Mast Other [facility] Other 03-27-2022 10:30-0400 Body weight 123.2 kg Rashad Mast Other [facility] Other 03-27-2022 10:30-0400 Diastolic blood pressure 80 mm[Hg] Rashad Mast Other [facility] Other 03-27-2022 10:30-0400 Respiratory rate 18 /min Rashad Mast Other [facility] Other 03-27-2022 10:30-0400 SaO2% (BldA) [Mass fraction] 95 % Rashad Mast Other [facility] Other 03-27-2022 10:30-0400 Systolic blood pressure 110 mm[Hg] Rashad Mast Other [facility] Other 03-02-2022 17:15-0400 Body height 170.18 cm Rashad Mast Other [facility] Other 03-02-2022 17:15-0400 Body mass index (BMI) [Ratio] 41.23 kg/m2 Rashad Mast Other [facility] Other 03-02-2022 17:15-0400 Body temperature 97.7 [degF] Rashad Mast Other [facility] Other 03-02-2022 17:15-0400 Body weight 119.43 kg Rashad Mast Other [facility] Other 03-02-2022 17:15-0400 Diastolic blood pressure 80 mm[Hg] Rashad Mast Other [facility] Other 03-02-2022 17:15-0400 Respiratory rate 18 /min Rashad Mast Other [facility] Other 03-02-2022 17:15-0400 SaO2% (BldA) [Mass fraction] 97 % Rashad Mast Other [facility] Other 03-02-2022 17:15-0400 Systolic blood pressure 124 mm[Hg] Rashad Mast Other [facility] Other Encounters Encounter Date Encounter Type Care Provider Facility Start: 08-15-2023 End: 08-15-2023 ambulatory Rashad Mast Other [facility] Other Start: 08-15-2023 Telephone encounter Rashad Mast [facility] Start: 08-13-2023 End: 08-13-2023 ambulatory Rashad Mast Other [facility] Other Start: 08-13-2023 Nursing evaluation o f patient and report Rashad Mast [facility] Start: 06-18-2023 End: 06-18-2023 ambulatory BALTAZAR A VISCI Not Available Start: 06-14-2023 End: 06-14-2023 ambulatory Rashad Mast Other [facility] Other Start: 06-14-2023 Office outpatient visit 25 minutes Rashad Mast [facility] Start: 06-14-2023 Telephone encounter Rashad Mast [facility] Start: 06-02-2023 End: 06-03-2023 Emergency department patient visit Rashad Pendleton Facility:[facility] Start: 06-02-2023 End: 06-03-2023 Emergency department patient visit DO Rashad Mast Work Phone: [facility] Work Phone: Start: 05-28-2023 End: 05-28-2023 ambulatory Rashad Mast Other [facility] Other Start: 05-28-2023 Telephone encounter Rashad Mast [facility] Start: 05-21-2023 End: 05-21-2023 ambulatory Rashad Mast Other [facility] Other Start: 05-21-2023 Office outpatient visit 25 minutes Rashad Mast [facility] Start: 03-28-2023 End: 03-28-2023 ambulatory Viki Copsey Facility:[facility] Start: 03-28-2023 End: 03-28-2023 ambulatory DO Rashad Mast Work Phone: [facility] Work Phone: Start: 03-28-2023 End: 03-28-2023 Discharged Recurring DO Rashad Mast Work Phone: [facility] Work Phone: Start: 03-21-2023 End: 03-21-2023 ambulatory Rashad Mast Other [facility] Other Start: 03-21-2023 Telephone encounter Rashad Mast [facility] Start: 02-26-2023 End: 02-26-2023 ambulatory Rashad Mast Other [facility] Other Start: 02-26-2023 Office outpatient visit 15 minutes Rashad Mast [facility] Start: 02-09-2023 End: 02-09-2023 ambulatory Rashad Mast Other [facility] Other Start: 02-09-2023 Telephone encounter Rashad Mast [facility] Start: 02-08-2023 End: 02-08-2023 ambulatory Rashad Mast Other [facility] Other Start: 02-08-2023 Office outpatient visit 25 minutes Rashad Mast [facility] Start: 02-07-2023 End: 02-07-2023 ambulatory Rashad Mast - [facility] Facility:[facility] Start: 02-07-2023 End: 02-07-2023 ambulatory DO Rashad Mast Work Phone: [facility] Work Phone: Start: 02-07-2023 End: 02-07-2023 Patient encounter procedure DO Rashad Mast Work Phone: [facility] Start: 01-16-2023 End: 01-16-2023 ambulatory Rashad Mast Other [facility] Other Start: 01-16-2023 Telephone encounter Rashad Mast [facility] Start: 12-26-2022 End: 12-26-2022 ambulatory Rashad Mast Other [facility] Other Start: 12-26-2022 Telephone encounter Rashad Mast [facility] Start: 11-22-2022 End: 11-22-2022 ambulatory Rashad Mast Other [facility] Other Start: 11-22-2022 Telephone encounter Rashad Mast [facility] Start: 10-21-2022 End: 10-21-2022 ambulatory Baltazar Visci Facility:[facility] Start: 10-21-2022 End: 10-21-2022 ambulatory DO Rashad Mast Work Phone: [facility] Work Phone: Start: 10-21-2022 End: 10-21-2022 Patient encounter procedure DO Rashad Mast Work Phone: [facility] Work Phone: Start: 10-17-2022 End: 10-17-2022 ambulatory Rashad Mast Other [facility] Other Start: 10-17-2022 Telephone encounter Rashad Mast [facility] Start: 10-16-2022 End: 10-16-2022 ambulatory Rashad Mast Other [facility] Other Start: 10-16-2022 Office outpatient visit 25 minutes Rashad Mast [facility] Start: 10-05-2022 End: 10-05-2022 ambulatory Rashad Mast Other [facility] Other Start: 10-05-2022 Telephone encounter Rashad Mast [facility] Start: 08-14-2022 End: 08-14-2022 ambulatory Rashad Mast Other [facility] Other Start: 08-14-2022 Office outpatient visit 15 minutes Rashad Mast [facility] Start: 08-08-2022 End: 08-08-2022 ambulatory Rashad Mast Other [facility] Other Start: 08-08-2022 Telephone encounter Rashad Mast [facility] Start: 06-26-2022 End: 06-26-2022 ambulatory Rashad Mast Other [facility] Other Start: 06-26-2022 Office outpatient visit 15 minutes Rashad Mast [facility] Start: 06-02-2022 End: 06-02-2022 ambulatory Rashad Mast Other [facility] Other Start: 06-02-2022 Telephone encounter Rashad Mast [facility] Start: 05-22-2022 End: 05-22-2022 ambulatory Rashad Mast Other [facility] Other Start: 05-22-2022 Office outpatient visit 25 minutes Rashad Mast [facility] Start: 03-27-2022 End: 03-27-2022 ambulatory Rashad Mast Other [facility] Other Start: 03-27-2022 Office outpatient visit 25 minutes Rashad Mast [facility] Start: 03-06-2022 End: 03-06-2022 ambulatory Rashad Mast Other [facility] Other Start: 03-06-2022 Telephone encounter Rashad Mast [facility] Start: 03-02-2022 End: 03-02-2022 ambulatory Rashad Mast Other [facility] Other Start: 03-02-2022 Office outpatient visit 25 minutes Rashad Mast [facility] Start: 02-22-2022 End: 02-22-2022 ambulatory Rashad Mast Other [facility] Other Start: 02-22-2022 Telephone encounter Rashad Mast [facility] Start: 02-02-2022 End: 02-02-2022 ambulatory Rashad Mast Other [facility] Other Start: 02-02-2022 Telephone encounter Rashad Mast [facility] Start: 01-18-2022 End: 01-18-2022 ambulatory Rashad Mast Other [facility] Other Start: 01-18-2022 Telephone encounter Rashad Mast [facility] Start: 12-01-2021 End: 12-01-2021 ambulatory Rashad Mast Other [facility] Other Start: 12-01-2021 Telephone encounter Rashad Mast [facility] Start: 11-22-2021 End: 11-22-2021 ambulatory Rashad Mast Other [facility] [employer] Other Start: 11-22-2021 Telephone encounter Rashad Mast [facility] Start: 06-08-2021 End: 06-08-2021 ambulatory Rashad Mast Other [facility] Other Start: 06-08-2021 Telephone encounter Rashad Mast [facility] Start: 05-18-2021 Telephone encounter Rashad Mast [facility] Start: 07-15-2018 End: 07-26-2018 Patient encounter procedure RASHAD MAST [facility] Start: 07-12-2018 End: 07-13-2018 Evaluation and management of inpatient Abrahan Pruett [facility] Start: 07-02-2018 End: 07-03-2018 Patient encounter procedure Abrahan Pruett [facility] Start: 07-27-2017 End: 07-27-2017 Ambulatory [facility] Facility:[facility] Start: 07-17-2017 End: 07-18-2017 Ambulatory [facility] Facility:[facility] Start: 05-04-2017 Ambulatory [facility] Facili ty:[facility]1 Start: 04-18-2017 End: 04-19-2017 Ambulatory [facility] Facility:[facility] Start: 03-07-2017 End: 03-08-2017 Ambulatory [facility] Facility:[facility] Procedures Date Procedure Procedure Detail Performing Clinician Start: 06-02-2023 SARS-CoV-2, Influenz a & RSV (PCR) DO Rashad Mast Work Phone: Plan of Treatment Date Care Activity Detail Author Start: 06-02-2023 Plain chest X-ray XR chest 2V* [facility] Start: 06-02-2023 XR Chest 2 Views [facility] Start: 10-21-2022 Screening mammograph y of bilateral breasts MM screening mammo BI w/CAD [facility] Patient Education Bronchitis, Adult ED Fi [facility] Work Phone: Patient referral [facility] Work Phone: Immunizations Immunization Date Immunization Notes Care Provider Lan de la cruz 08-13-2023 zoster vaccine recombinant Rashad Mast Other [facility] Other 05-21-2023 zoster vaccine recombinant Rashad Mast Other [facility] Other 05-21-2023 influenza, injectabl e, quadrivalent, preservative free Rashad Mast Other [facility] Other 05-25-2022 COVID-19 Pfizer (bivalent) Rashad Mast Other [facility] Other 05-25-2022 influenza, injectabl e, quadrivalent, preservative free Rashad Mast Other [facility] Other 03-22-2020 influenza, seasonal, injectable Rashad Mast Other [facility] Other 05-07-2019 influenza, seasonal, injectable Rashad Mast Other [facility] Other 09-29-2016 Toradol per 15 mg Rashad Mast Other [facility] Other 06-14-2016 influenza, injectabl e, quadrivalent, contains preservative Rashad Mast Other [facility] Other 05-02-2015 Toradol per 15 mg Rashad Mast Other [facility] Other Payers Date Payer Category Payer Self-pay [id number] 1960 Unknown [id number] 2.16.84 [id number] 1960 Unknown [id number] 2.16.84 [id number] 1960 Unknown [id number] 2.16.84 [id number] 1960 Unknown [id number] 1959 Unknown [id number] Unknown [id number] 2.16.8 [id number] Unknown [id number] 2.16.8 [id number] Unknown [id number] 2.16.8 [id number] Unknown [id number] 2.16.8 [id number] Social History Date Type Detail Facility Unknown if ever smoked [facility] Other Sex Assigned At Sex Assigned At Bir th [facility] Other Start: 03-19-2021 End: 06-02-2023 Tobacco smoking status NHIS Never smoked tobacco (finding) [facility] Start: 1960 Sex Assigned At Female F [facility] Medical Equipment Procedure Code Equipment Code Equipment [...] how she does. Call if problems persist [facility] Other 10-30-2023 Evaluation note* Encounter Date Diagnosis Assessment Notes Treatment Notes Treatment Clinical Notes Apr, Unspecified asthma, uncomplicated (ICD-10 - J45.909) [facility] Other 10-23-2023 Evaluation note* Encounter Date Diagnosis [...] - J45.909) Currently quiet, continue present meds [facility] Other 08-30-2023 Progress note Author Viki Mcnulty [facility] March 28, 2023 8:53am Note Date/Time March 28, 2023 8: 53am [facility] [address] [place] [address] Wound Center Provider Note Signed Patient: Mavis Pickard MR#: [id number] : 1960 Acct:[id number] Age/Sex: 63 / F Copies to: Jeffry/PreceptorRashadEvelai Mcnulty APRN~ HPI Date of Visit Date of Visit: Date of Service: 03/28/2023 Time of Service: 08:50 Narrative HPI: 02/28/23 Mavis is a 62-year-old female presenting to [facility] for an initial [...] socks faithfully. 03/21/23 much improved, saw alexis hernandes body, is waiting on insurance approval, orders [...] 2022 Right leg ulcer Mode of Arrival/ Can Patcher: Personal vehicle Lives with:: Spouse Appetite Description: Within Normal Limits Who helps w/ dressing change?: Wound Care Dept Smoking Status: Never smoker [facility] Medical History (Updated 03/21/23 @ 09:33 by Viki Copsey, [employer]) Asthma Diabetes Leg edema, right Ulcer of [...] Stasis Ulcer Thickness: Skin Breakdown Bed Appearance: [place] Percent of Wound Bed Granulated/Red: 100 Percent [...] Signed By: <Electronically signed by ABRIL Mcnulty> 03/28/2353 [facility] Work Phone: 1(391) 115-817408-23-2023 Progress note Author Viki Mcnulty [facility] March 21, 2023 9:34am Note Date/Time March 21, 2023 9: 34am [facility] [address] [place] [address] Wound Center Provider Note Signed Patient: Mavis Pickard MR#: [id number] : 1960 Acct:[id number] Age/Sex: 62 / F Copies to: Jeffry/PreceptorRashad APRN~ HPI Date of Visit Date of Visit: Date of Service: 03/21/2023 Time of Service: 09:32 Narrative HPI: 02/28/23 Mavis is a 62-year-old female presenting to [facility] for an initial [...] 2022 Right leg ulcer Mode of Arrival/ Can Patcher: Personal vehicle Lives with:: Spouse Appetite Description: Within Normal Limits Who helps w/ dressing change?: Wound Care Dept Smoking Status: Never smoker [facility] Medical History (Updated 03/21/23 @ 09:33 [...] <Electronically signed by ABRIL Mcnulty> 03/21/[address] [facility] Work Phone: 1(394) 972-360208-02-2023 Progress note Author Viki Mcnulty [facility] February 28, 2023 11:36am Note Date/Time February 28, 2023 11: 36am [facility] [address] [place] [address] Wound Center Provider Note Signed Patient: Mavis Pickard MR#: [id number] : 1960 Acct:[id number] Age/Sex: 62 / F Copies to: Jeffry/PreceptorRashad DO-Evelia Mcnulty APRN~ HPI Date of Visit Date of Visit: Date of Service: 02/28/2023 Time of Service: 11:28 Narrative HPI: 02/28/23 Mavis is a 62-year-old female presenting to [facility] for an initial [...] 2022 Right leg ulcer Mode of Arrival/ Can Patcher: Personal vehicle Lives with:: Spouse Appetite Description: Within Normal Limits Who helps w/ dressing change?: Wound Care Dept Smoking Status: Never smoker [facility] Medical History (Updated 02/28/23 @ 11:34 [...] 0.1 CM Sq: 1.000 Surrounding Tissue Appearance: [place] and Hyperpigmented Surrounding Tissue Temp: Warm Drainage [...] <Electronically signed by ABRIL Mcnulty> 02/28/23 1136 [facility] Work Phone: 1(143) 281-520007-31-2023 Evaluation note* Encounter Date Diagnosis Assessment Notes [...] nasal spray and see if that helps [facility] Other 07-13-2023 Evaluation note* Encounter Date Diagnosis [...] is doing. She is trying to get [facility] paperwork completed so that she does [...] me in the future if problems arise [facility] Other 03-20-2023 Evaluation note* Encounter Date Diagnosis [...] now, warning signs reviewed. Call if problems [facility] Other 01-16-2023 Evaluation note* Encounter Date Diagnosis [...] Recheck in 2 months, sooner if problems [facility] Other 01-10-2023 Evaluation note* Encounter Date Diagnosis Assessment Notes Treatment Notes Treatment Clinical Notes Jul, Type 2 diabetes mellitus without complications (ICD-10 - E11.9) [facility] Other 11-28-2022 Evaluation note* Encounter Date Diagnosis [...] for now. Keep working on weight loss. [facility] Other 11-04-2022 Evaluation note* Encounter Date Diagnosis Assessment Notes Treatment Notes Treatment Clinical Notes May, Type 2 diabetes mellitus without complications (ICD-10 - E11.9) [facility] Other 10-24-2022 Evaluation note* Encounter Date Diagnosis [...] Continue present Rx, keep seeing the counselor. [facility] Other 08-29-2022 Evaluation note* Encounter Date Diagnosis [...] at next visit. Continue seeing the counselor [facility] Other 08-04-2022 Evaluation note* Encounter Date Diagnosis [...] this in the long run or not. [facility] Other 06-22-2022 Evaluation note* Encounter Date Diagnosis Assessment Notes Treatment Notes Treatment Clinical Notes Dec, Type 2 diabetes mellitus without complications (ICD-10 - E11.9) [facility] Other 10-20-2021 Evaluation note* Encounter Date Diagnosis Assessment Notes Treatment Notes Treatment Clinical Notes Apr, Type 2 diabetes mellitus without complications (ICD-10 - E11.9) [facility] Other Evaluation noteNo InformationNortAllied [employer] Other Evaluation noteNo assessment information available 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 Work Phone: [facility] Narrative - Reported* Type Description Date Medical History diabetes mellitus Medical History asthma Medical History Depression Surgical History knee arthroscopy Surgical History rt ring finger amputation Surgical History BREAST BIOPSY RIGHT Surgical History RIGHT KNEE REPLACEMENT 06/2018 Surgical History colonoscopy - Dr. Carolina 2019 Hospitalization History SEE ABOVE [facility] Other [facility] Narrative - Reported* Type Description Date Medical History diabetes mellitus Medical History asthma Medical History Depression Surgical History knee arthroscopy Surgical History rt ring finger amputation Surgical History BREAST BIOPSY RIGHT Surgical History RIGHT KNEE REPLACEMENT 06/2018 Surgical History colonoscopy - Dr. Carolina 2015 Hospitalization History SEE ABOVE [facility] [employer] Other History general [facility] [employer] Other History general Narrative - [facility] [employer] Other Summary Purpose Family History No Family [...] Wound of skin (T14.8 XXA) Referral Organization [facility] Family Rebekah Rabago Referring Provider First [...] and content) DATE CREATED AUTHOR 01/22/2018 [facility] DATE CREATED AUTHOR AUTHOR'S ORGANIZ ATION 07/27/2018 [facility] DATE CREATED AUTHOR AUTHOR'S ORGANIZ ATION 06/19/2023 [facility] EPIC DATE CREATED AUTHOR AUTHOR'S ORGANIZ ATION 09/07/2023 [facility] REASON FOR VISIT (unrecogniz ed section and content) Refill/ MetforminRefillNS/CA NCELLED APPTQuestion about booster vacc.refillRefill/LantusRefill7 MTH FOLLOW UPRefill/ Lantus3 week follow up1 month Follow upRefill/ Metformin1 month Follow upRefill/ lancets1 month Follow upnausea2 month Follow uplow BSRefill/ InhalerRefill/ Zofran3 month follow up/ sore on left legrt leg woundRefill/ZofranAWVAsthma flare upFR ERFR ER Follow up [id number] SHINGLE VACCINERefill/ Zofran Care Teams (unrecognized sec tion and content) Team Status: Active Member Role Status Dates Rashad Mast , DO Primary Care Provider Active Team Status: Inactive Member Role Status Dates Rashad Mast , DO Primary Care Provider Active Baltazar Strange , DO Attending Provider Active Team [...] BE BASED ON THE PRIMARY CLINICAL RECORDS. [employer] [facility]. provides no warranty or guarantee of the accuracy or completeness of information in this document.
== END 2023-09-11 07:28 | disposition home or self-care (01) ==
LOC: VC 07:27
PROVIDERS: PCP Radiology Diagnostic Radiology; Visit Provider Radiology Diagnostic Radiology
DX: I80.01 Phlebitis and thrombophlebitis of superficial vessels of right lower extremity (principal)
CPT/HCPCS: 93971; G0463

== ENCOUNTER 2023-09-24 09:48 | Outpatient (OUT) | payer BC, SELFPAY ==
--- NOTE | 2023-09-24 09:53 | VEIN_ITS ---
The [address] [address] Patient Name: MAVIS PICKARD MRN: [id number] date: 1960 Sex: F Assigned Patient Location: Current Patient Location: Accession/Order Number: [id number] Exam Date: 09/24/2023 10:00 Report Date: 09/24/2023 11:13 At the request of: JEFFREY REYNA Procedure: VC INJ Foam Sclerosant WUS [employer]INTER PROCEDURE: VC INJ Foam Sclerosant WUS [employer]INTER COMPARISON: None. HISTORY: Pain due to varicose veins of bilateral legs I83.813 Pre-operative Diagnosis: CEAP class C5 venous insufficiency with pain, tenderness, edema and incompetent right saphenous vein(s), chronic venous insufficiency right leg secondary to venous incompetence Post-operative Diagnosis: CEAP class C5 venous insufficiency with pain, tenderness, edema and incompetent right saphenous vein(s), chronic venous insufficiency right leg secondary to venous incompetence Procedure Performed: 1. Ultrasound-guided microfoam chemical ablation with Varithenaregistered 2. Intraoperative ultrasound guidance Anesthesia: None Indications for Procedure: 63-year-old female who presents with a long history of lower extremity pain and swelling culminating in venous stasis ulcerations which were not healing. The patient failed conservative medical therapy including medical compression stockings, exercise and analgesics. Prior procedures include . Multiple incompetent varicosities of the right leg. Duplex scan showed reflux and enlarged diameters up to 6 mm. The patient underwent informed consent including management options where the complications of infection, bleeding, pain, and skin injury were discussed. Particular attention was spent discussing thrombus extension and deep vein thrombosis as well as the possibility of pulmonary embolus and treatment with oral or injectable blood thinners. Procedure: The patient walked to the procedure room. All applicable staff donned appropriate apparel. A procedure timeout was performed to confirm correct patient, correct extremity, correct procedure, and correct room set-up including presence of all applicable supplies, devices, and drugs. A duplex ultrasound, performed by myself confirmed the location and incompetence of branch saphenous varicosities and their course was marked on the skin together with the dilated tributaries. The extent of treatment of the vein and the associated varicosities was determined through ultrasound mapping. The skin was prepped and then punctured with a butterfly needle and advanced under ultrasound guidance. The Varithenaregistered canister was activated and the canister was primed and purged as required in the instructions for use. Varithenaregistered was drawn into a sterile syringe. The following injections were made: 6 cc injected into a 4 mm varicose vein distal anterior right lower leg 6 cc injected into a 5 mm varicose vein mid anterior right lower leg 3 cc injected into a 5 mm varicose vein mid medial thigh Varithenaregistered was slowly administered at 0.5-1.0 cc/second with close observation by ultrasound of its course in the vessels. Total volume utilized was: 15cc. Following administration of Varithenaregistered the leg was elevated and the patient was asked to repeatedly dorsiflex the ankle to limit flow of Varithenaregistered into perforating veins. Once appropriate spasm had been confirmed in the treated veins, the vascular catheter was removed from the leg and light pressure was applied over the puncture site for hemostasis. The common femoral and deep superficial veins were then evaluated for flow and compressibility prior to dressing placement. The lower extremity was kept elevated at 45 degrees above the horizontal and cording material was applied over the saphenous segments and tributaries to allow for eccentric compression over the target vessels including the targeted saphenous vein(s). A multilayer dressing was applied consisting of foam pads, coban and thigh-high 20-30 mm Hg compression elastic support hose were placed on the patient. The leg was lowered only after compression had been applied and the patient was immediately ambulatory. The patient ambulated 10 minutes under supervision and was without apparent concerns at time of release. Post-care instructions include advising patient to keep post-treatment bandages in place and dry for 48 hours, avoid extended periods of inactivity, avoid heavy exercise for one week, wear compression stockings on the treated leg continuously for two weeks, to walk daily for 10 minutes over the next month. The patient was instructed to take an anti-inflammatory medicine as needed and to follow up for color duplex scan of the Saphenous veins, the treated branch saphenous varicosities, the adjacent deep veins, and additional treatment within 7 days. PERSONNEL: Brandt Delacruz RN Electronically authenticated by: JEFFREY REYNA Date: 09/24/2023 11:13
== END 2023-09-24 09:49 | disposition home or self-care (01) ==
LOC: VC 09:49
PROVIDERS: PCP Radiology Diagnostic Radiology; Visit Provider Radiology Diagnostic Radiology
DX: I83.813 Varicose veins of bilateral lower extremities with pain (principal)
CPT/HCPCS: 36466

== ENCOUNTER 2023-09-28 09:53 | Outpatient (OUT) | payer BC, SELFPAY ==
--- NOTE | 2023-09-28 09:53 | VEIN_ITS ---
Patient Name: MAVIS PICKARD MR#: [id number] : 1960 Exam Date: 09/28/2023 Ordering Doctor: DR Magen Price M.D. RADIOLOGY REPORT PROCEDURE: FACILITY EST [facility] - OFFICE VISIT FOLLOW UP COMPARISON: [facility] EST LMT[facility], 09/11/2023. [facility] EST [facility]MT[facility], 08/16/2023. PROGRESS NOTES: The patient reports no significant problems following micro foam chemical ablation of right leg incompetent varicose veins. The patient did not require oral analgesics. The patient has worn her compression stocking. Physical exam demonstrates multiple thrombosed varicose veins on the right leg. No significant bruising. No erythema or warmth to suggest cellulitis or thrombophlebitis. No active ulceration. Multiple patent varicose veins remain. Review of the ultrasound performed the same day demonstrates occlusive thrombus extending throughout the treated right leg varicose veins with no deep vein thrombus. Multiple dilated incompetent deep veins are noted. Residual incompetent varicose veins measuring up to 4.8 mm. The patient expressed a desire to proceed with treatment of incompetent right leg varicose veins with micro foam chemical ablation. VEIN/[facility] EST LMTD IMPRESSION: 1. Successful ablation of treated incompetent right leg varicose veins. 2. Persistent incompetent right leg varicose veins. PLAN: Micro foam chemical ablation right leg incompetent varicose veins Nurse notes, history and physical were reviewed and confirmed, see attached forms. The nurse was present throughout the physical exam and consultation Dictated by: Magen Price MD on 09/28/2023 at 10:27 Approved by: Magen Price MD on 09/28/2023 at 10:28
--- NOTE | 2023-09-28 09:53 | VEIN_ITS ---
Patient Name: MAVIS PICKARD MR#: [id number] : 1960 Exam Date: 09/28/2023 Ordering Doctor: DR MAGEN PRICE M.D. RADIOLOGY REPORT PROCEDURE: VC EXT VENOUS RT LMTD COMPARISON: VC EXT VENOUS RT LMTD, 09/11/2023. VC EXT VENOUS RT LMTD, 08/03/2023. INDICATIONS: I80.01 Phlebitis of superficial veins of right lower extremity TECHNIQUE: Lower extremity tsang scale and Duplex Doppler evaluation of the deep venous system from the inguinal ligament through the calf veins. FINDINGS: REGION: Right lower extremity. THROMBI: Negative for DVT. Chemically induced thrombus in multiple varicose veins in right lower leg. COMPRESSIBILITY: Non-compressible segments corresponding to thrombus FLOW: Areas of no flow corresponding to thrombus OTHER: Patent varicose vein lateral right knee measures 4.8 mm. [employer] prox/lateral lower leg measures 2.9 mm. Distal/anterior/medial thigh varicose vein measures 4.7 mm. Multiple perforators medial thigh. CONCLUSION: Post ablation occlusion of treated right leg varicose veins with residual incompetent varicose veins measuring up to 4.8 mm. Dictated by: Magen Price MD on 09/28/2023 at 10:20 Approved by: Magen Price MD on 09/28/2023 at 10:21
--- OUTSIDE RECORDS SUMMARY | 2023-09-28 09:57 | XMS_ITS | CCD ---
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 Name Role Phone HIGHLANDER, PETER Unavailable Unavailable [...] Provider Mast, DO Rashad Primary Care Provider [phone] Mast, DO Rashad Attending Provider [phone] Mast, DO Rashad Primary Care Provider ABRIL [...] Translations: [penicillin] Drug Allergy 04-18-19 UNKNOWN [facility] Repository (1 source) Sulfonamides (Antibiotic) Drug allergy (disorder) 04-18-19 UNKNOWN [facility] Rep[facility] (1 source) Sulfamethoxazole; Translations: [sulfamethoxazole ] Drug Allergy [facility] Repository (20 sources) Penicillin V Drug Allergy Unknown [facility] [employer] Other (10 sources) sulfaSALAzine Drug Allergy Unknown [facility] [employer] Other (3 sources) Sulfonamide Drug allergy Unknown [facility] [employer] Other (18 sources) Substance with sulfonamide structure and antibacterial mechanism of action (substance) Drug allergy Unknown [facility] [employer] Other (5 sources) Penicillins; Translations: [Penicillins] Allergy to substance 03-19-20 Unknown Reaction [facility] (5 sources) Sulfonamides (Antibiotic); Translations: [Sulfa (Sulfonamide Antibiotics)] Allergy to substance 03-19-20 Unknown Reaction [facility] (1 source) Penicillin Drug Allergy 08-13-19 [facility] Repository Medications Current Medications Medication Drug [...] mg Subcutaneous once a week Sep, Active [id number] 200 actuat albuterol 0.09 mg/actuat metered dose [...] Once a day for 30 days Active Viraloid Ultra - (2 sources) Viraloid Ultra - USE DIRECTED TO TEST BLOOD [...] B (Bld) [Mass/Vol] 26.0 pg/mL Normal 5-100 [facility] Comment on above: Result Comment: PERF ORMED BY: [facility] [address] [place] [address] PATHOLOGIST IRRIGATION FLUME LAYER MARTINEZ GARZA M.D. Performed By: #### L IPID, CBC, URMACRERAT, CMP #### [facility] [address] COVID-19 / Flu A/B / RSV [...] or Cepheid Disclaimer revoked sooner. PERFORMED BY: [place] [address] PATHOLOGIST IRRIGATION FLUME LAYER MARTINEZ GARZA M.D. Normal [facility] Comment on above: Performed By: #### C EPHEID NEG, COVID19 FLU RSV #### [address] Cepheid COVID PCR Negativeon 06-03-2023 SARS-CoV-2 (COVID-19) RNA ROSA+probe Ql (Unsp spec) Negative Normal Negative [facility] Comment on above: Result Comment: This is a duplicate Cepheid Xpert Xpress CoV-2/Flu/RSV Plus RNA by RT-PCR result to be used for statistical tracking purpose only. PERFORMED BY: [place] [address] PATHOLOGIST IRRIGATION FLUME LAYER MARTINEZ GARZA M.D. Performed By: #### C EPHEID NEG, COVID19 FLU RSV #### [address] Complete Blood Count Auto Di ffon 06-03-2023 Basophils (Bld) [#/Vol] 0.0 10*3/uL Normal 0.0-0.2 [facility] Comment on above: Result Comment: PERF ORMED BY: [place] [address] PATHOLOGIST IRRIGATION FLUME LAYER MARTINEZ GARZA M.D. Performed By: #### L IPID, CBC, URMACRERAT, CMP #### [address] Basophils/100 WBC (Bld) 0.3 % Normal . [facility] Comment on above: Performed By: #### L IPID, CBC, URMACRERAT, CMP #### [address] Eosinophils (Bld) [#/Vol] 0.2 10*3/uL Normal 0.0-0.45 [facility] Comment on above: Performed By: #### L IPID, CBC, URMACRERAT, CMP #### [address] Eosinophils/100 WBC (Bld) 2.8 % Normal . [facility] Comment on above: Performed By: #### L IPID, CBC, URMACRERAT, CMP #### [address] Erythrocyte distribution width (RBC) [Ratio] 14.6 % Normal 11.9-15.3 [facility] Comment on above: Performed By: #### L IPID, CBC, URMACRERAT, CMP #### [address] Hematocrit (Bld) [Volume fraction] 36.2 % Normal 34.0-46.4 [facility] Comment on above: Performed By: #### L IPID, CBC, URMACRERAT, CMP #### [address] Hemoglobin (Bld) [Mass/Vol] 12.6 g/dL Normal 11.8-15.4 [facility] Comment on above: Performed By: #### L IPID, CBC, URMACRERAT, CMP #### [address] Lymphocytes (Bld) [#/Vol] 3.3 10*3/uL Normal 1.00-4.8 [facility] Comment on above: Performed By: #### L IPID, CBC, URMACRERAT, CMP #### [address] Lymphocytes/100 WBC (Bld) 42.3 % Normal . [facility] Comment on above: Performed By: #### L IPID, CBC, URMACRERAT, CMP #### [address] MCH (RBC) [Entitic mass] 29.9 pg Normal 24.7-34.3 [facility] Comment on above: Performed By: #### L IPID, CBC, URMACRERAT, CMP #### [address] MCV (RBC) [Entitic vol] 85.9 fL Normal 80-100 [facility] Comment on above: Performed By: #### L IPID, CBC, URMACRERAT, CMP #### [address] Mean Corpuscular HGB Conc 34.8 g/dL Normal 32.0-35.0 [facility] Comment on above: Performed By: #### L IPID, CBC, URMACRERAT, CMP #### [address] Monocytes (Bld) [#/Vol] 0.6 10*3/uL Normal 0.0-0.8 [facility] Comment on above: Performed By: #### L IPID, CBC, URMACRERAT, CMP #### [address] Monocytes/100 WBC (Bld) 18.99 % Normal 0.00-20.00 [facility] Comment on above: Performed By: #### L IPID, CBC, URMACRERAT, CMP #### [address] Monocytes/100 WBC (Bld) 8.3 % Normal . [facility] Comment on above: Performed By: #### L IPID, CBC, URMACRERAT, CMP #### [address] Neutrophils (Bld) [#/Vol] 3.6 10*3/uL Normal 1.8-7.7 [facility] Comment on above: Performed By: #### L IPID, CBC, URMACRERAT, CMP #### [address] Neutrophils/100 WBC (Bld) 46.3 % Normal . [facility] Comment on above: Performed By: #### L IPID, CBC, URMACRERAT, CMP #### [address] NRBC% 0.2 /100{WBC} Normal 0-0.5 [facility] Comment on above: Performed By: #### L IPID, CBC, URMACRERAT, CMP #### [address] Platelet mean volume (Bld) [Entitic vol] 8.4 fL Normal 6.3-10.7 [facility] Comment on above: Performed By: #### L IPID, CBC, URMACRERAT, CMP #### [place] [address] [place] Platelets (Bld) [#/Vol] 303 10*3/uL Normal 150-450 [facility] Comment on above: Performed By: #### L IPID, CBC, URMACRERAT, CMP #### [address] RBC (Bld) [#/Vol] 4.21 10*6/uL Normal 3.60-5.00 [facility] Comment on above: Performed By: #### L IPID, CBC, URMACRERAT, CMP #### [address] WBC (Bld) [#/Vol] 7.7 10*3/uL Normal 3.8-11.6 [facility] Comment on above: Performed By: #### L IPID, CBC, URMACRERAT, CMP #### [facility] [address] [place] [address] Comprehensive Metabolic Pane tino 06-03-2023 Albumin [Mass/Vol] 4.0 g/dL Normal 3.5-5.7 [facility] Comment on above: Performed By: #### L IPID, CBC, URMACRERAT, CMP #### [address] Albumin/Globulin [Mass ratio] 1.5 {ratio} Normal [facility] Comment on above: Performed By: #### L IPID, CBC, URMACRERAT, CMP #### [address] ALP [Catalytic activity/Vol] 72 U/L Normal 34-104 [facility] Comment on above: Performed By: #### L IPID, CBC, URMACRERAT, CMP #### [address] ALT [Catalytic activity/Vol] 16 U/L Normal 7-52 [facility] Comment on above: Performed By: #### L IPID, CBC, URMACRERAT, CMP #### [address] Anion gap [Moles/Vol] Not performed Normal 6.0-15.0 [facility] Comment on above: Performed By: #### L IPID, CBC, URMACRERAT, CMP #### [address] AST [Catalytic activity/Vol] 20 U/L Normal 13-39 [facility] Comment on above: Performed By: #### L IPID, CBC, URMACRERAT, CMP #### [place] [address] [place] Bilirubin [Mass/Vol] 0.3 mg/dL Normal 0.3-1.0 [facility] Comment on above: Performed By: #### L IPID, CBC, URMACRERAT, CMP #### [place] [address] [place] Calcium [Mass/Vol] 9.1 mg/dL Normal 8.6-10.3 [facility] Comment on above: Performed By: #### L IPID, CBC, URMACRERAT, CMP #### [facility] [address] Chloride [Moles/Vol] 105 mmol/L Normal 98-107 [facility] Comment on above: Performed By: #### L IPID, CBC, URMACRERAT, CMP #### [facility] [address] CO2 [Moles/Vol] 26.7 mmol/L Normal 21.0-31.0 [facility] Comment on above: Performed By: #### L IPID, CBC, URMACRERAT, CMP #### [address] Creatinine [Mass/Vol] 0.72 mg/dL Normal 0.60-1.20 [facility] Comment on above: Performed By: #### L IPID, CBC, URMACRERAT, CMP #### [address] Creatinine Clr Calc Pharmacy 108.28 [facility] Comment on above: Result Comment: PERF ORMED BY: [place] [address] PATHOLOGIST IRRIGATION FLUME LAYER MARTINEZ GARZA M.D. Performed By: #### L IPID, CBC, URMACRERAT, CMP #### [address] GFR/1.73 sq M.predicted MDRD (S/P/Bld) [Vol rate/Area] mL/min/{1.73_m2} [facility] Comment on above: Performed By: #### L IPID, CBC, URMACRERAT, CMP #### [facility] [address] Globulin (S) [Mass/Vol] 2.6 g/dL [facility] Comment on above: Performed By: #### L IPID, CBC, URMACRERAT, CMP #### [address] Glucose [Mass/Vol] 198 mg/dL High 70-100 [facility] Comment on above: Result Comment: [place] Glucose Reference Range is dependent on time and content of last meal. Glucose of more than 200 mg/dL in a nonstressed, ambulatory subject supports the diagnosis of Diabetes Mellitus. ADA recommended reference range Performed By: #### L IPID, CBC, URMACRERAT, CMP #### [facility] [address] Potassium Normal 3.5-5.1 [facility] Comment on above: Result Comment: Spec imen hemolyzed, redraw requested Performed By: #### L IPID, CBC, URMACRERAT, CMP #### [address] Protein [Mass/Vol] 6.6 g/dL Normal 6.4-8.9 [facility] Comment on above: Performed By: #### L IPID, CBC, URMACRERAT, CMP #### [address] Sodium [Moles/Vol] 132 mmol/L Low 136-145 [facility] Comment on above: Performed By: #### L IPID, CBC, URMACRERAT, CMP #### [address] Urea nitrogen [Mass/Vol] 21 mg/dL Normal 7-25 [facility] Comment on above: Performed By: #### L IPID, CBC, URMACRERAT, CMP #### [address] Creatine Kinaseon 06-03-2023 CK [Catalytic activity/Vol] 50 U/L Normal 30-223 [facility] Comment on above: Performed By: #### L IPID, CBC, URMACRERAT, CMP #### [address] ECG 12 lead ECGon 06-03-2023 ECG 12 lead ECG [facility] [place] [address] [place] [id number] Electrocardiograph Report Signed Patient: Mavis Pickard MR#: [id number] : 1960 Acct:[id number] Age/Sex: 63 / F ADM Date: 06/02/23 Loc: ER Room: Type: [facility] ER Attending Dr: Ordering Provider: [...] Signed By Winston Moe MD 2116 Normal [facility] Redraw Potassiumon 3 Potassium [Moles/Vol] 3.9 mmol/L Normal 3.5-5.1 [facility] Comment on above: Result Comment: PERF ORMED BY: [address] [place] [address] PATHOLOGIST IRRIGATION FLUME LAYER MARTINEZ GARZA M.D. Performed By: #### R EDSEUN K #### [address] [address] [facility] Troponin I High Sensitivityo n 06-03-2023 Troponin I High Sensitivity 4.2 pg/mL Normal 0.0-15.0 [facility] Comment on above: Result Comment: PERF ORMED BY: [address] [place] [address] PATHOLOGIST IRRIGATION FLUME LAYER MARTINEZ GARZA M.D. Performed By: #### L IPID, CBC, URMACRERAT, CMP #### [facility] [address] XR chest 2V*on 06-03-2023 XR chest 2V* [facility] [place] [address] [place] [address] XRay Report Signed Patient: Mavis Pickard MR#: [id number] : 1960 Acct:[id number] Age/Sex: 63 / F ADM Date: 06/02/23 Loc: ER Room: Type: [facility] ER Attending Dr: Copies to: Rashad Pendleotn DO Ordering Provider: Rashad Pendleton DO Date [...] Holden Herrmann M.D.06/03/2023 9:48 AM Dictation Location: [place] [address] Transcribed By: [facility] 06/03/23947 Dictated By: Holden Herrmann II, MD 06/03/23946 Signed By: 06/03/23947 Normal [facility] Alanine aminotransferase [En zymatic activity/volume] in Serum or PlasmaOrdered By: Rashad Pendleton on 06-02-2023 ALT [Catalytic activity/Vol] 16 U/L 7-52 [facility] Albumin [Mass/volume] in Ser um or Plasma by Bromocresol green (BCG) dye binding methoOrdered By: Rashad Pendleton on 06-02-2023 Albumin BCG dye [Mass/Vol] 4.0 g/dL 3.5-5.7 [facility] Alkaline phosphatase [Enzyma tic activity/volume] in Serum or PlasmaOrdered By: Rashad Pendleton on 06-02-2023 ALP [Catalytic activity/Vol] 72 U/L 34-104 [facility] Aspartate aminotransferase [ Enzymatic activity/volume] in Serum or PlasmaOrdered By: Rashad Pendleton on 06-02-2023 AST [Catalytic activity/Vol] 20 U/L 13-39 [facility] Basophils Auto (Bld) [#/Vol] Ordered By: Rashad Pendleton on 06-02-2023 Basophils (Bld) [#/Vol] 0.0 10*3/uL 0.0-0.2 [facility] Basophils/100 WBC Auto (Bld) Ordered By: Rashad Pendleton on 06-02-2023 Basophils/100 WBC (Bld) 0.3 % . [facility] Bilirubin.total [Mass/volume ] in Serum or PlasmaOrdered By: Rashad Pendleton on 06-02-2023 Bilirubin [Mass/Vol] 0.3 mg/dL 0.3-1.0 [facility] COVID CepheidOrdered By: Denise Pendleton on 06-02-2023 SARS-CoV-2 (COVID-19) Ab IA Ql Negative Negative [facility] Comment on above: This is a duplicate [employer] Xpert Xpress CoV-2/Flu/RSV Plus RNA by RT-PCR result to be used for statistical tracking purpose only. SARS-CoV-2 (COVID-19) RNA ROSA+probe Ql (Unsp spec) [facility] Calcium [Mass/volume] in Ser um or PlasmaOrdered By: Rashad Pendleton on 06-02-2023 Calcium [Mass/Vol] 9.1 mg/dL 8.6-10.3 [facility] Carbon dioxide, total [Moles /volume] in Serum or PlasmaOrdered By: Rashad Pendleton on 06-02-2023 CO2 [Moles/Vol] 26.7 mmol/L 21.0-31.0 [facility] Chloride [Moles/volume] in S alexander or PlasmaOrdered By: Rashad Pendleton on 06-02-2023 Chloride [Moles/Vol] 105 mmol/L 98-107 [facility] Creatine kinase [Enzymatic a ctivity/volume] in Serum or PlasmaOrdered By: Rashad Pendleton on 06-02-2023 CK [Catalytic activity/Vol] 50 U/L 30-223 [facility] Creatinine [Mass/volume] in Serum or PlasmaOrdered By: Rashad Pendleton on 06-02-2023 Creatinine [Mass/Vol] 0.72 mg/dL 0.60-1.20 [facility] Eosinophils Auto (Bld) [#/Vo l]Ordered By: Rashad Pendleton on 06-02-2023 Eosinophils (Bld) [#/Vol] 0.2 10*3/uL 0.0-0.45 [facility] Eosinophils/100 WBC Auto (Bl d)Ordered By: Rashad Pendleton on 06-02-2023 Eosinophils/100 WBC (Bld) 2.8 % . [facility] Erythrocyte distribution wid th Auto (RBC) [Ratio]Ordered By: Rashad Pendleton on 06-02-2023 Erythrocyte distribution width (RBC) [Ratio] 14.6 % 11.9-15.3 [facility] Globulin Calc (S) [Mass/Vol] Ordered By: Rashad Pendleton on 06-02-2023 Globulin (S) [Mass/Vol] 2.6 g/dL [facility] Glucose [Mass/volume] in Ser um or PlasmaOrdered By: Rashad Pendleton on 06-02-2023 Glucose [Mass/Vol] 198 mg/dL 70-100 [facility] Comment on above: ADA recommended refe rence rangeRandom Glucose Reference Range is dependent on time and content of last meal. Glucose of more than 200 mg/dL in a nonstressed, ambulatory subject supports the diagnosis of Diabetes Mellitus. Hematocrit Auto (Bld) [Volum e fraction]Ordered By: Rashad Pendleton on 06-02-2023 Hematocrit (Bld) [Volume fraction] 36.2 % 34.0-46.4 [facility] Hemoglobin [Mass/volume] in BloodOrdered By: Rashad Pendleton on 06-02-2023 Hemoglobin (Bld) [Mass/Vol] 12.6 g/dL 11.8-15.4 [facility] Leukocytes [#/volume] correc vandana for nucleated erythrocytes in Blood by Automated counOrdered By: Rashad Pendleton on 06-02-2023 WBC corrected for nucl RBC Auto (Bld) [#/Vol] 7.7 10*3/uL 3.8-11.6 [facility] Lymphocytes Auto (Bld) [#/Vo l]Ordered By: Rashad Pendleton on 06-02-2023 Lymphocytes (Bld) [#/Vol] 3.3 10*3/uL 1.00-4.8 [facility] Lymphocytes/100 WBC Auto (Bl d)Ordered By: Rashad Pendleton on 06-02-2023 Lymphocytes/100 WBC (Bld) 42.3 % . [facility] MCH Auto (RBC) [Entitic mass ]Ordered By: Rashad Pendleton on 06-02-2023 MCH (RBC) [Entitic mass] 29.9 pg 24.7-34.3 [facility] MCHC Auto (RBC) [Mass/Vol]Or dered By: Rashad Pendleton on 06-02-2023 MCHC (RBC) [Mass/Vol] 34.8 g/dL 32.0-35.0 [facility] MCV Auto (RBC) [Entitic vol] Ordered By: Rashad Pendleton on 06-02-2023 MCV (RBC) [Entitic vol] 85.9 fL 80-100 [facility] Monocyte distribution width [Entitic volume] in Blood by AutomatedOrdered By: Rashad Pendleton on 06-02-2023 Monocyte distribution width Auto (Bld) [Entitic vol] 18.99 % 0.00-20.00 [facility] Monocytes Auto (Bld) [#/Vol] Ordered By: Rashad Pendleton on 06-02-2023 Monocytes (Bld) [#/Vol] 0.6 10*3/uL 0.0-0.8 [facility] Monocytes/100 WBC Auto (Bld) Ordered By: Rashad Pendleton on 06-02-2023 Monocytes/100 WBC (Bld) 8.3 % . [facility] Natriuretic peptide B [Mass/ Vol]Ordered By: Rashad Pendleton on 06-02-2023 Natriuretic peptide B (Bld) [Mass/Vol] 26.0 pg/mL 5-100 [facility] Neutrophils Auto (Bld) [#/Vo l]Ordered By: Rashad Pendleton on 06-02-2023 Neutrophils (Bld) [#/Vol] 3.6 10*3/uL 1.8-7.7 [facility] Neutrophils/100 WBC Auto (Bl d)Ordered By: Rashad Pendleton on 06-02-2023 Neutrophils/100 WBC (Bld) 46.3 % . [facility] No Panel InformationOrdered By: Rashad Pendleton on 06-02-2023 Estimated GFR (CKD-EPI) > 60.0 mL/Min [facility] Creatinine Clearance (Chem 108.28 [facility] Nucleated erythrocytes [Pres ence] in Blood by Automated countOrdered By: Rashad Pendleton on 06-02-2023 Nucleated RBC Auto Ql (Bld) 0.2 /100{WBC} 0-0.5 [facility] Platelet mean volume Auto (B ld) [Entitic vol]Ordered By: Rashad Pendleton on 06-02-2023 Platelet mean volume (Bld) [Entitic vol] 8.4 fL 6.3-10.7 [facility] Platelets Auto (Bld) [#/Vol] Ordered By: Rashad Pendleton on 06-02-2023 Platelets (Bld) [#/Vol] 303 10*3/uL 150-450 [facility] Protein [Mass/volume] in Ser um or PlasmaOrdered By: Rashad Pendleton on 06-02-2023 Protein [Mass/Vol] 6.6 g/dL 6.4-8.9 [facility] RBC Auto (Bld) [#/Vol]Ordere d By: Rashad Pendleton on 06-02-2023 RBC (Bld) [#/Vol] 4.21 10*6/uL 3.60-5.00 [facility] Serum or plasma albumin/glob ulin mass ratioOrdered By: Rashad Pendleton on 06-02-2023 Albumin/Globulin [Mass ratio] 1.5 {ratio} [facility] Serum or plasma anion gap de terminationOrdered By: Rashad Pendleton on 06-02-2023 Anion gap [Moles/Vol] [facility] Comment on above: Test not performed Sodium [Moles/volume] in Ser um or PlasmaOrdered By: Rashad Pendleton on 06-02-2023 Sodium [Moles/Vol] 132 mmol/L 136-145 [facility] Troponin I.cardiac [Mass/vol ume] in Serum or Plasma by Detection limit <= 0.01 ng/Ordered By: Rashad Pendleton on 06-02-2023 Troponin I.cardiac DL <= 0.01 ng/mL [Mass/Vol] 4.2 pg/mL 0.0-15.0 [facility] Urea nitrogen [Mass/volume] in Serum or PlasmaOrdered By: Rashad Pendleton on 06-02-2023 Urea nitrogen [Mass/Vol] 21 mg/dL 7-25 [facility] WBC Auto (Bld) [#/Vol]Ordere d By: Rashad Pendleton on 06-02-2023 WBC (Bld) [#/Vol] 7.7 10*3/uL 3.8-11.6 [facility] A1C HEMOGLOBINon 05-21-2023 HbA1c (Bld) [Mass fraction] 6.3 % [employer] Other HbA1c (Bld) [Mass fraction]o n 05-21-2023 A1C HEMOGLOBIN [employer] Other A1C HEMOGLOBINon 02-08-2023 HbA1c (Bld) [Mass fraction] 6.3 % [employer] Other HbA1c (Bld) [Mass fraction]o n 02-08-2023 A1C HEMOGLOBIN [employer] Other Alanine aminotransferase [En zymatic activity/volume] in Serum or PlasmaOrdered By: Rashad Teran on 02-07-2023 ALT [Catalytic activity/Vol] 21 U/L Normal 7-52 [facility] Comment on above: Order Comment: Reaso n for Exam Type 2 diabetes mellitus without complications Performed By: #### L IPID, CBC, URMACRERAT, CMP #### [facility] [address] Albumin [Mass/volume] in Ser um or Plasma by Bromocresol green (BCG) dye binding methoOrdered By: Rashad Teran on 02-07-2023 Albumin BCG dye [Mass/Vol] 4.3 g/dL 3.5-5.7 [facility] Alkaline phosphatase [Enzyma tic activity/volume] in Serum or PlasmaOrdered By: Rashad Teran on 02-07-2023 ALP [Catalytic activity/Vol] 78 U/L Normal 34-104 [facility] Comment on above: Order Comment: Reaso n for Exam Type 2 diabetes mellitus without complications Performed By: #### L IPID, CBC, URMACRERAT, CMP #### [facility] [address] Aspartate aminotransferase [ Enzymatic activity/volume] in Serum or PlasmaOrdered By: Rashad Mast on 02-07-2023 AST [Catalytic activity/Vol] 24 U/L Normal 13-39 [facility] Comment on above: Order Comment: Reaso n for Exam Type 2 diabetes mellitus without complications Performed By: #### L IPID, CBC, URMACRERAT, CMP #### [facility] [address] Automated basophil %Ordered By: Rashad Mast on 02-07-2023 Basophils/100 WBC (Bld) 1.0 % Normal . [facility] Comment on above: Order Comment: Reaso n for Exam Type 2 diabetes mellitus without complications Performed By: #### L IPID, CBC, URMACRERAT, CMP #### [facility] [address] [place] [address] Automated basophil countOrde red By: Rashad Mast on 02-07-2023 Basophils (Bld) [#/Vol] 0.1 10*3/uL Normal 0.0-0.2 [facility] Comment on above: Order Comment: Reaso n for Exam Type 2 diabetes mellitus without complications Result Comment: PERF ORMED BY: [place] [address] PATHOLOGIST IRRIGATION FLUME LAYER MARTINEZ GARZA M.D. Performed By: #### L IPID, CBC, URMACRERAT, CMP #### [facility] [address] [place] [address] Automated blood monocyte cou ntOrdered By: Rashad Mast on 02-07-2023 Monocytes (Bld) [#/Vol] 0.6 10*3/uL Normal 0.0-0.8 [facility] Comment on above: Order Comment: Reaso n for Exam Type 2 diabetes mellitus without complications Performed By: #### L IPID, CBC, URMACRERAT, CMP #### [facility] [address] Automated eosinophil %Ordere d By: Rashad Mast on 02-07-2023 Eosinophils/100 WBC (Bld) 3.5 % Normal . [facility] Comment on above: Order Comment: Reaso n for Exam Type 2 diabetes mellitus without complications Performed By: #### L IPID, CBC, URMACRERAT, CMP #### [facility] [address] [place] [address] Automated eosinophil countOr dered By: Rashad Mast on 02-07-2023 Eosinophils (Bld) [#/Vol] 0.3 10*3/uL Normal 0.0-0.45 [facility] Comment on above: Order Comment: Reaso n for Exam Type 2 diabetes mellitus without complications Performed By: #### L IPID, CBC, URMACRERAT, CMP #### [facility] [address] [place] [address] Automated monocyte %Ordered By: Rashad Mast on 02-07-2023 Monocytes/100 WBC (Bld) 7.4 % Normal . [facility] Comment on above: Order Comment: Reaso n for Exam Type 2 diabetes mellitus without complications Performed By: #### L IPID, CBC, URMACRERAT, CMP #### [facility] [address] [place] [address] Automated neutrophil %Ordere d By: Rashad Mast on 02-07-2023 Neutrophils/100 WBC (Bld) 53.6 % Normal . [facility] Comment on above: Order Comment: Reaso n for Exam Type 2 diabetes mellitus without complications Performed By: #### L IPID, CBC, URMACRERAT, CMP #### [facility] [address] [place] [address] Bilirubin.total [Mass/volume ] in Serum or PlasmaOrdered By: Rashad Mast on 02-07-2023 Bilirubin [Mass/Vol] 0.6 mg/dL Normal 0.3-1.0 [facility] Comment on above: Order Comment: Reaso n for Exam Type 2 diabetes mellitus without complications Performed By: #### L IPID, CBC, URMACRERAT, CMP #### [facility] [address] [id number] [place] Calcium [Mass/volume] in Ser um or PlasmaOrdered By: Rashad Mast on 02-07-2023 Calcium [Mass/Vol] 9.6 mg/dL Normal 8.6-10.3 [facility] Comment on above: Order Comment: Reaso n for Exam Type 2 diabetes mellitus without complications Performed By: #### L IPID, CBC, URMACRERAT, CMP #### [facility] [address] [place] [address] [place] Carbon dioxide, total [Moles /volume] in Serum or PlasmaOrdered By: Rashad Mast on 02-07-2023 CO2 [Moles/Vol] 28.0 mmol/L Normal 21.0-31.0 [facility] Comment on above: Order Comment: Reaso n for Exam Type 2 diabetes mellitus without complications Performed By: #### L IPID, CBC, URMACRERAT, CMP #### [facility] [address] [id number] [place] Chloride [Moles/volume] in S alexander or PlasmaOrdered By: Rashad Mast on 02-07-2023 Chloride [Moles/Vol] 103 mmol/L Normal 98-107 [facility] Comment on above: Order Comment: Reaso n for Exam Type 2 diabetes mellitus without complications Performed By: #### L IPID, CBC, URMACRERAT, CMP #### [facility] [address] [id number] [place] Cholesterol [Mass/volume] in Serum or PlasmaOrdered By: Rashad Mast on 02-07-2023 Cholesterol [Mass/Vol] 119 mg/dL Low 140-200 [facility] Comment on above: Chol less than [...] #### L IPID, CBC, URMACRERAT, CMP #### [facility] [address] Cholesterol in LDL Calc [Mas s/Vol]Ordered By: Rashad Teran on 02-07-2023 Cholesterol in LDL [Mass/Vol] 40 mg/dL 0-100 [facility] Comment on above: LDL ATP III CLASSIFI CATIONLDL less than 100 mg/dL OptimalLDL 100-129 mg/dL Near or above optimalLDL 130-159 mg/dL Borderline highLDL 160-189 mg/dL HighLDL greater than 189 mg/dL Very high Cholesterol in VLDL Calc [Ma ss/Vol]Ordered By: Rashad Teran on 02-07-2023 Cholesterol in VLDL [Mass/Vol] 29 mg/dL [facility] Complete Blood Count Auto Di ffon 02-07-2023 Mean Corpuscular HGB Conc 33.2 g/dL Normal 32.0-35.0 [facility] Comment on above: Order Comment: Reaso n for Exam Type 2 diabetes mellitus without complications Performed By: #### L IPID, CBC, URMACRERAT, CMP #### [facility] [address] NRBC% 0.2 /100{WBC} Normal 0-0.5 [facility] Comment on above: Order Comment: Reaso n for Exam Type 2 diabetes mellitus without complications Performed By: #### L IPID, CBC, URMACRERAT, CMP #### [facility] [address] Comprehensive Metabolic Pane tino 02-07-2023 Albumin [Mass/Vol] 4.3 g/dL Normal 3.5-5.7 [facility] Comment on above: Order Comment: Reaso n for Exam Type 2 diabetes mellitus without complications Performed By: #### L IPID, CBC, URMACRERAT, CMP #### [facility] [address] GFR/1.73 sq M.predicted MDRD (S/P/Bld) [Vol rate/Area] mL/min/{1.73_m2} Normal [facility] Comment on above: Order Comment: Reaso n for Exam Type 2 diabetes mellitus without complications Performed By: #### L IPID, CBC, URMACRERAT, CMP #### [facility] [address] [place] [address] [place] Creatinine [Mass/volume] in Serum or PlasmaOrdered By: Rashad Mast on 02-07-2023 Creatinine [Mass/Vol] 0.82 mg/dL Normal 0.60-1.20 [facility] Comment on above: Order Comment: Reaso n for Exam Type 2 diabetes mellitus without complications Performed By: #### L IPID, CBC, URMACRERAT, CMP #### [facility] [address] [place] [address] [place] Creatinine [Mass/volume] in UrineOrdered By: Rashad Mast on 02-07-2023 Creatinine (U) [Mass/Vol] 140.0 mg/dL 11.0-20.0 [facility] Erythrocyte distribution wid th [Ratio] by Automated countOrdered By: Rashad Mast on 02-07-2023 Erythrocyte distribution width (RBC) [Ratio] 14.3 % Normal 11.9-15.3 [facility] Comment on above: Order Comment: Reaso n for Exam Type 2 diabetes mellitus without complications Performed By: #### L IPID, CBC, URMACRERAT, CMP #### [facility] [address] [place] [address] [place] Erythrocytes [#/volume] in B lood by Automated countOrdered By: Rashad Mast on 02-07-2023 RBC (Bld) [#/Vol] 4.98 10*6/uL Normal 3.60-5.00 [facility] Comment on above: Order Comment: Reaso n for Exam Type 2 diabetes mellitus without complications Performed By: #### L IPID, CBC, URMACRERAT, CMP #### [facility] [address] [place] [address] [place] Glucose [Mass/volume] in Ser um or PlasmaOrdered By: Rashad Mast on 02-07-2023 Glucose [Mass/Vol] 122 mg/dL High 70-100 [facility] Comment on above: ADA recommended refe rence rangeRandom Glucose Reference Range is dependent on time and content of last meal. Glucose of more than 200 mg/dL in a nonstressed, ambulatory subject supports the diagnosis of Diabetes Mellitus. Order Comment: Reaso n for Exam Type 2 diabetes mellitus without complications Result Comment: [place] om Glucose Reference Range is dependent on time and content of last meal. Glucose of more than 200 mg/dL in a nonstressed, ambulatory subject supports the diagnosis of Diabetes Mellitus. ADA recommended reference range Performed By: #### L IPID, CBC, URMACRERAT, CMP #### [facility] [address] Hematocrit [Volume Fraction] of Blood by Automated countOrdered By: Rashad [email or web address] on 02-07-2023 Hematocrit (Bld) [Volume fraction] 42.0 % Normal 34.0-46.4 [facility] Comment on above: Order Comment: Reaso n for Exam Type 2 diabetes mellitus without complications Performed By: #### L IPID, CBC, URMACRERAT, CMP #### [facility] [address] [place] [address] Hemoglobin [Mass/volume] in BloodOrdered By: [employer] on 02-07-2023 Hemoglobin (Bld) [Mass/Vol] 14.0 g/dL Normal 11.8-15.4 [facility] Comment on above: Order Comment: Reaso n for Exam Type 2 diabetes mellitus without complications Performed By: #### L IPID, CBC, URMACRERAT, CMP #### [facility] [address] [place] [address] [place] Leukocytes [#/volume] correc vandana for nucleated erythrocytes in Blood by Automated counOrdered By: [employer] on 02-07-2023 WBC corrected for nucl RBC Auto (Bld) [#/Vol] 7.4 10*3/uL 3.8-11.6 [facility] Leukocytes [#/volume] in Blo od by Automated countOrdered By: RashadBitium on 02-07-2023 WBC (Bld) [#/Vol] 7.4 10*3/uL Normal 3.8-11.6 [facility] Comment on above: Order Comment: Reaso n for Exam Type 2 diabetes mellitus without complications Performed By: #### L IPID, CBC, URMACRERAT, CMP #### [facility] [address] [place] [address] Lipid Panelon 02-07-2023 LDL Cholesterol,Calculate d 40 mg/dL Normal 0-100 [facility] Comment on above: Order Comment: Reaso n for Exam Type 2 diabetes mellitus without complications Result Comment: LDL ATP III CLASSIFICATION LDL less than 100 mg/dL Optimal LDL 100-129 mg/dL Near or above optimal LDL 130-159 mg/dL Borderline high LDL 160-189 mg/dL High LDL greater than 189 mg/dL Very high Performed By: #### L IPID, CBC, URMACRERAT, CMP #### [address] Triglyceride w/Reflex 148 mg/dL Normal 0-149 [facility] Comment on above: Order Comment: Reaso [...] #### L IPID, CBC, URMACRERAT, CMP #### [address] VLDL CHOLESTEROL 29 mg/dL Normal [facility] Comment on above: Order Comment: Reaso n for Exam Type 2 diabetes mellitus without complications Performed By: #### L IPID, CBC, URMACRERAT, CMP #### [address] Lymphocytes [#/volume] in Bl ood by Automated countOrdered By: Rashad Teran on 02-07-2023 Lymphocytes (Bld) [#/Vol] 2.6 10*3/uL Normal 1.00-4.8 [facility] Comment on above: Order Comment: Reaso n for Exam Type 2 diabetes mellitus without complications Performed By: #### L IPID, CBC, URMACRERAT, CMP #### [facility] [address] [place] [address] [place] Lymphocytes/100 leukocytes i n Blood by Automated countOrdered By: Rashad Mast on 02-07-2023 Lymphocytes/100 WBC (Bld) 34.5 % Normal . [facility] Comment on above: Order Comment: Reaso n for Exam Type 2 diabetes mellitus without complications Performed By: #### L IPID, CBC, URMACRERAT, CMP #### [facility] [address] [place] [address] [place] MCH [Entitic mass] by Automa vandana countOrdered By: Rashad Mast on 02-07-2023 MCH (RBC) [Entitic mass] 28.0 pg Normal 24.7-34.3 [facility] Comment on above: Order Comment: Reaso n for Exam Type 2 diabetes mellitus without complications Performed By: #### L IPID, CBC, URMACRERAT, CMP #### [facility] [address] [place] [address] MCHC Auto (RBC) [Mass/Vol]Or dered By: Rashad Mast on 02-07-2023 MCHC (RBC) [Mass/Vol] 33.2 g/dL 32.0-35.0 [facility] MCV [Entitic volume] by Auto mated countOrdered By: Rashad Mast on 02-07-2023 MCV (RBC) [Entitic vol] 84.3 fL Normal 80-100 [facility] Comment on above: Order Comment: Reaso n for Exam Type 2 diabetes mellitus without complications Performed By: #### L IPID, CBC, URMACRERAT, CMP #### [facility] [address] [place] [address] [place] MicroAlb Creat Ratio,Uon Creatinine, Urine (Random) 140.0 mg/dL High 11.0-20.0 [facility] Comment on above: Order Comment: Reaso n for Exam Type 2 diabetes mellitus without complications Performed By: #### L IPID, CBC, URMACRERAT, CMP #### [facility] [address] Microalbumin/Creatini ne Ratio 5.0 mg/g Normal 0.0-30.0 [facility] Comment on above: Order Comment: Reaso n for Exam Type 2 diabetes mellitus without complications Result Comment: 30-3 00 mg/g indicates an increased risk for diabetic nephropathy. Greater than 300 mg/g is consistent with clinical nephropathy. (Am. J. Kidney Disease 1995, 25:107) PERFORMED BY: [place] [address] PATHOLOGIST IRRIGATION FLUME LAYER MARTINEZ GARZA M.D. Performed By: #### L IPID, CBC, URMACRERAT, CMP #### [facility] [address] [place] [address] Microalbumin [Mass/volume] i n UrineOrdered By: Rashad Teran on 02-07-2023 Albumin DL <= 20 mg/L (U) [Mass/Vol] 0.8 mg/dL Normal 0.0-1.8 [facility] Comment on above: Order Comment: Reaso n for Exam Type 2 diabetes mellitus without complications Performed By: #### L IPID, CBC, URMACRERAT, CMP #### [facility] [address] [place] [address] Neutrophils [#/volume] in Bl ood by Automated countOrdered By: Rashad Teran on 02-07-2023 Neutrophils (Bld) [#/Vol] 4.0 10*3/uL Normal 1.8-7.7 [facility] Comment on above: Order Comment: Reaso n for Exam Type 2 diabetes mellitus without complications Performed By: #### L IPID, CBC, URMACRERAT, CMP #### [facility] [address] [place] [address] No Panel InformationOrdered By: Rashad Teran on 02-07-2023 Estimated GFR (CKD-EPI) > 60.0 mL/Min [facility] Creatinine Clearance (Chem N/A [facility] Nucleated erythrocytes [Pres ence] in Blood by Automated countOrdered By: Rashad Teran on 02-07-2023 Nucleated RBC Auto Ql (Bld) 0.2 /100{WBC} 0-0.5 [facility] Platelet mean volume [Entiti c volume] in Blood by Automated countOrdered By: Rashad Mast on 02-07-2023 Platelet mean volume (Bld) [Entitic vol] 9.3 fL Normal 6.3-10.7 [facility] Comment on above: Order Comment: Reaso n for Exam Type 2 diabetes mellitus without complications Performed By: #### L IPID, CBC, URMACRERAT, CMP #### [facility] [address] [place] [address] [place] Platelets [#/volume] in Bloo d by Automated countOrdered By: Rashad Mast on 02-07-2023 Platelets (Bld) [#/Vol] 242 10*3/uL Normal 150-450 [facility] Comment on above: Order Comment: Reaso n for Exam Type 2 diabetes mellitus without complications Performed By: #### L IPID, CBC, URMACRERAT, CMP #### [facility] [address] [place] [address] [place] Potassium [Moles/volume] in Serum or PlasmaOrdered By: Rashad Mast on 02-07-2023 Potassium [Moles/Vol] 4.4 mmol/L Normal 3.5-5.1 [facility] Comment on above: Order Comment: Reaso n for Exam Type 2 diabetes mellitus without complications Performed By: #### L IPID, CBC, URMACRERAT, CMP #### [facility] [address] [place] [address] [place] Protein [Mass/volume] in Ser um or PlasmaOrdered By: Rashad Mast on 02-07-2023 Protein [Mass/Vol] 6.9 g/dL Normal 6.4-8.9 [facility] Comment on above: Order Comment: Reaso n for Exam Type 2 diabetes mellitus without complications Performed By: #### L IPID, CBC, URMACRERAT, CMP #### [facility] [address] [place] [address] [place] Serum globulin measurement b y calculation (mass/volume)Ordered By: Rashad Mast on 02-07-2023 Globulin (S) [Mass/Vol] 2.6 g/dL Normal [facility] Comment on above: Order Comment: Reaso n for Exam Type 2 diabetes mellitus without complications Performed By: #### L IPID, CBC, URMACRERAT, CMP #### [facility] [address] Serum or plasma albumin/glob ulin mass ratioOrdered By: Rashad Teran on 02-07-2023 Albumin/Globulin [Mass ratio] 1.7 {ratio} Normal [facility] Comment on above: Order Comment: Reaso n for Exam Type 2 diabetes mellitus without complications Performed By: #### L IPID, CBC, URMACRERAT, CMP #### [facility] [address] Serum or plasma anion gap de terminationOrdered By: Rashad Teran on 02-07-2023 Anion gap [Moles/Vol] 12.4 mmol/L Normal 6.0-15.0 [facility] Comment on above: Order Comment: Reaso n for Exam Type 2 diabetes mellitus without complications Performed By: #### L IPID, CBC, URMACRERAT, CMP #### [facility] [address] Serum or plasma high density lipoprotein (HDL) cholesterol measurementOrdered By: Rashad Teran on 02-07-2023 Cholesterol in HDL [Mass/Vol] 49 mg/dL Normal 23-92 [facility] Comment on above: HDL CHOL ATP-III [...] #### L IPID, CBC, URMACRERAT, CMP #### [facility] [address] Serum or plasma total choles terol/high density lipoprotein (HDL) cholesterol mass ratOrdered By: Rashad Teran on 02-07-2023 Cholesterol.total/Cho lesterol in HDL [Mass ratio] 2.4 {ratio} Normal <5.0 [facility] Comment on above: Order Comment: Reaso n for Exam Type 2 diabetes mellitus without complications Result Comment: PERF ORMED BY: [place] [address] PATHOLOGIST IRRIGATION FLUME LAYER MARTINEZ GARZA M.D. Performed By: #### L IPID, CBC, CHAYO, TED #### [facility] [address] Sodium [Moles/volume] in Ser um or PlasmaOrdered By: Rashad Mast on 02-07-2023 Sodium [Moles/Vol] 139 mmol/L Normal 136-145 [facility] Comment on above: Order Comment: Reaso n for Exam Type 2 diabetes mellitus without complications Performed By: #### L IPIDTC, CHAYO, TED #### [facility] [address] Triglyceride [Mass/volume] i n Serum or PlasmaOrdered By: Rashad Mast on 02-07-2023 Triglyceride [Mass/Vol] 148 mg/dL 0-149 [facility] Comment on above: TRIG ATP III CLASSIF ICATIONTRIG less than 150 mg/dL NormalTRIG 150-199 mg/dL Borderline highTRIG 200-500 mg/dL High TRIG greater than 500 mg/dL Very highStandard traceable to the Center for Disease Conrtrol and Prevention (CDC) test method. Urea nitrogen [Mass/volume] in Serum or PlasmaOrdered By: Rashad Mast on 02-07-2023 Urea nitrogen [Mass/Vol] 15 mg/dL Normal 7-25 [facility] Comment on above: Order Comment: Reaso n for Exam Type 2 diabetes mellitus without complications Performed By: #### L IPID, CBC, CHAYO, CMP #### [facility] [address] Urine microalbumin/creatinin e mass ratioOrdered By: Rashad Mast on 02-07-2023 Albumin/Creatinine DL <= 20 mg/L (U) [Mass ratio] 5.0 mg/g 0.0-30.0 [facility] Comment on above: 30-300 mg/g indicate s an increased risk for diabetic nephropathy. Greater than 300 mg/g is consistent with clinical nephropathy. (Am. J. Kidney Disease 1995, 25:107) MM screening mammo BI w/CADo n 10-23-2022 MM screening mammo BI w/CAD [facility] [place] [address] [place] [address] Mammography Report Signed Patient: Mavis Pickard MR#: [id number] : 1960 Acct:[id number] Age/Sex: 62 / F ADM Date: 10/21/22 Loc: [place] [facility]: Baltazar Strange DO Copies to: [...] Anai Gomez M.D.10/23/2022 7:17 AM Dictation Location: [facility] Transcribed By: LADONNA 10/23/22716 Dictated By: Anai Gomez MD 10/23/2214 Signed By: 10/23/22716 [facility] A1C HEMOGLOBINon 10-16-2022 HbA1c (Bld) [Mass fraction] 7.0 % [employer] Other HbA1c (Bld) [Mass fraction]o n 10-16-2022 A1C HEMOGLOBIN [employer] Other A1C HEMOGLOBINon 06-26-2022 HbA1c (Bld) [Mass fraction] 8.6 % [employer] Other HbA1c (Bld) [Mass fraction]o n 06-26-2022 A1C HEMOGLOBIN [employer] Other A1C HEMOGLOBINon 03-02-2022 HbA1c (Bld) [Mass fraction] 9.0 % [employer] Other HbA1c (Bld) [Mass fraction]o n 03-02-2022 A1C HEMOGLOBIN [employer] Other Progress Note-Physicianon Protein mass conc Patient: [...] insulin dependent (IDDM), controlled / SNOMED CT 161334974 / ConfirmedAsthma / SNOMED CT 255863953 / ConfirmedLocalized osteoarthritis of knee / SNOMED CT 373612830 / Confirmed Physical Examination Intake and Output Denies significant n/v and is tolerating p.o. No qualifying data available Respiratory: Adequate air exchange with religious of preoperative function.. Cardiovascular: Cardiovascular function is stable and has returned to preoperative levels.. Neurologic: Pt has returned to preoperative baseline.. Review / Management Condition: Stable. Assessment Anesthetic outcome No anesthetic complications noted. Plan Transfer/ Discharge: Patient can be discharged from PACU when criteria met. Condition good. Normal [facility] Comment on above: Result Comment: [...] insulin dependent (IDDM), controlled / SNOMED CT 700155749 / ConfirmedAsthma / SNOMED CT 831311149 / ConfirmedLocalized osteoarthritis of knee / SNOMED CT 364880467 / Confirmed Physical Examination Intake and Output [...] report . Respiratory: Adequate air exchange with religious of preoperative function.. Cardiovascular: Cardiovascular function is stable and has returned to preoperative levels.. Neurologic: Pt has returned to preoperative baseline.. Review / Management Condition: Stable. Assessment Anesthetic outcome No anesthetic complications noted. Plan Transfer/ Discharge: Patient can be discharged from PACU when criteria met. Condition good. Normal [facility] Coding Summary.on 07-16-2018 Coding Summary. CODING DATE: FINAL [facility] STATUS: Home w/ Home Health PAYOR: Sulma [...] 2 diabetes mellitus without complications Z79.4 1 long-term (current) use of insulin E66.9 Y Obesity, unspecified F32.9 Y Major depressive disorder, single episode, unspecified PROCEDURES DOCTOR NAME DATE [id number] Replacement of Right Knee Joint Abrahan Pruett DO 07/12/2018 with Synthetic Substitute, Cemented, Open Approach [id number] Introduction of Anesthetic Yoni Noland JR, DO 07/12/2018 Agent into Peripheral Nerves and Plexi, Percutaneous Approach NOTE: The code number assigned matches the documented diagnosis and / or procedure in the patient's chart. However, the narrative phrase printed from the coding software may appear abbreviated, or result in slightly different terminology. Coded By: Radha Ch Date Saved: 07/16/2018 08:23 am Normal [facility] Coding Summary.on 07-15-2018 Coding Summary. CODING DATE: FINAL [facility] STATUS: PAYOR: Sulma ADMIT DX: REASON FOR [...] CphT Date Saved: 07/15/2018 01:38 pm Normal [facility] Main OR Intraoperative Recor don 07-15-2018 Main OR Intraoperative Record IntraOp Document Type FT Summary Primary Physician: Abrahan Pruett DO Finalized Date/Time: 07/15/18 14:25:27 Pt. Name: MAVIS PICKARD Evelia Delcid./Sex: 1960 Female Med Rec #: [id number] Physician: Abrahan Pruett DO Financial #: [id number] Pt. Type: I Room/Bed: N316/01 Admit/Disch: 07/12/18 05:38:00 - 07/13/18 15:35:00 Institution: Case Times FT Entry 1 Patient Times In Room 07/12/18 07:44:00 Out Room 07/12/18 10:08:00 Procedure Times Start 07/12/18 08:19:00 Stop 07/12/18 10:05:00 Anesthesia Times Start 07/12/18 07:44:00 Stop 07/12/18 10:08:00 Block Timeout w/ 07/12/18 07:08:00 Anesthesia Last Modified By: Kelley Boggs CST 07/12/18 10:08:14 General Comments: [id number] - patient taken to block room hooked [...] [facility] Performed Anesthesiologist Surgeon - Primary B2B OUTSIDE SALES REPRESENTATIVE Duck Operator Time In 07/12/18 07:44:00 07/12/18 08:02:00 07/12/18 [...] Harrington RN, Geovanna Montes CST Role Performed Video Surveillance Technician - Primary Video Surveillance Technician - Primary Scrub - Primary Time In 07/12/18 07:50:00 07/12/18 07:44:00 07/12/18 07:44:00 Time Out 07/12/18 10:08:00 07/12/18 09:44:00 07/12/18 09:44:00 Procedure KNEE TOTAL KNEE TOTAL KNEE TOTAL ARTHROPLASTY(Right) ARTHROPLASTY(Right) ARTHROPLASTY(Right) Comments Last Modified By: Nahum RN, [place] 07/12/18 Nahum RN, [place] 07/12/18 Nahum RN, Parsi 07/12/18 10:11:04 10:11:04 10:11:04 Entry 7 Entry 8 Case Attendee Jean BLOW OFF WORKER, Meseret Mendiola RN, CNOR, CRNFA, ONC, Kristina Role Performed Scrub - Other Staff - Other Time In 07/12/18 07:46:00 07/12/18 07:44:00 Time Out 07/12/18 10:08:00 07/12/18 08:10:00 Procedure KNEE TOTAL KNEE TOTAL ARTHROPLASTY(Right) ARTHROPLASTY(Right) Comments OUTSIDE PROFESSOR OF SPORT MANAGEMENT Last Modified By: Nahum RN, [place] 07/12/18 Nahum RN, [place] 07/12/18 10:11:04 10:11:04 General Comments: CELESTINO CHOI REP PRESENT FOR PROCEDURE. Stacie ANGEL RNsupplier engineer Protocols FT Pre-Care Text: Implements protective measures [...] Yes Yes Yes Last Modified By: Latrice Harrintgon RN, RN, Latrice Tabares RN 07/12/18 07:39:45 [...] and Intact Condition Condition Grounding Pad [place] Sihdu RN Outcomes Met? Yes Last Modified By: [...] RN, Coy RN, Emily A, ONCKristina Churchill [place] BLOW OFF WORKER, Geovanna E [place] BLOW OFF WORKER, Geovanna E BLOW OFF WORKER, Geovanna E Outcomes Met? Yes Yes Yes [...] to transfer/transport General Comments: REPORT GIVEN TO INCIDENT HANDLEREdu ANGEL RN Dressing/Packing FT Pre-Care Text: Administers [...] PURPLE Setting 375 mmHg 34 X 4 [[id number]][F] Equipment Number C Placement Right Upper Thigh [...] [6197-9-001][F] BONE [6197-9-001][F] Serial Number Lot Number [id number] Typo Machine Operator [facility] -HOWHR[employer]CA JIM[employer] Catalog ?# 6197-9-010 [F] 6197-9-010 [F] [...] BASEPLATE Serial Number Lot Number [id number] Typo Machine Operator [employer] J[employer] Catalog ?# 5515-F-[id number] 5520-B-500 Size [...] Present Upon Arrival No Inserted LF 16FR [[id number]][F] Insertion Date/Time 07/12/18 08:02:00 Urine Residual 110 [...] BLANKET MISTRAL AIR Quantity 1 Aid TORSO [[id number]][F] Fluid/[place] Unit [employer] warming system Setting HIGH/43 Body Site Upper anterior torso Last Modified By: Latrice Harrington RN 07/12/18 08:35:52 Case Comments Finalized By: Kelley Boggs CST Document Signatures Signed By: Parsi Sidhu RN 07/12/18 10:11 Kelley Boggs CST 07/15/18 14:25 Normal [facility] Sodiumon 07-15-2018 Sodium molar conc 134 mmol/L Low 135-145 [facility] Comment on above: Performed By: #### 1 [id number], 5290627, 0663391, 7126354, 504138676, 4872948, 1612373 ####[facility] [address] [place] [address] Inpatient Clinical Summaryon 07-14-2018 Inpatient Clinical Summary [address] [address] Clinical Summary Person Information:Name: MAVIS PICKARD Age: 58 Years : 1960 12:00 AM Sex: Female PCP: RASHAD TERAN DO Marital Status: Race:White Ethnicity:Non- or Language:Frisian Visit Id: Visit Reason:RIGHT KNEE OA Speciality: Acuity: Enc Type: Inpatient Med Service: Surgery Arrival:07/12/2018 5:38 AM Discharge: 07/13/2018 3:35 PM Dispo Type: Home w/ Home Health Address:[address] [place] [id number] Provider Notes: Diagnosis:1:Knee osteoarthritis; 2:Anemia; 3:Hyponatremia; 4:Asthma; [...] DO Follow up:With: Address: When: Abrahan Pruett [place] [id number] Business (1) 08/07/2018 2:00 PM With: Address: When: RASHAD TERAN [address] [place], [place] [phone] Business (1) Patient Education Information: Osteoarthritis; Hyponatremia, Gloj-cw-Kqqe; Shine - Post Op Total Knee Arthroplasty (Revised 2016) (CUSTOM)Percocet 325 mg-5 mg Tab Normal [facility] Inpatient Patient Summaryon 07-14-2018 Inpatient Patient Summary [place] [id number] Patient Discharge Instructions PERSON INFORMATION Name: MAVIS PICKARD Date of : 1960 12:00 AM Current Date: 07/14/18 09:43:55 PHYSICIANS Admitting Physician[facility]ician: [facility]AN DO [facility] Comment: Discharge Diagnosis: 1:Knee osteoarthritis; 2:Anemia; 3:Hyponatremia; [...] results: NoneFollow up:With: Address: When: Abrahan Pruett [address] [address] Business (1) 08/07/2018 2:00 PM With: Address: When: RASHAD TERAN [address] [place] [address] Business (1) In the event that this physician does not participate in your insurance network, please consult with your insurance company to find a nearby participating provider. Comment: NEERAJ Crowe CYNTHIA S, have received the attached patient education materials/instructions and have verbalized understanding:Patient Signature __ Date Clinican/Nu rse Signature Date HERE ARE THE MEDICATION CHANGES THAT OCCURRED DURING YOUR HOSPITAL STAY [facility]ations[id number] [address] [facility] [address] [place], [place] [id number], [phone]-oxycodon e (Percocet 325 mg-5 mg Tab) 1 [...] aerobics, that get your heart pumping. ? Mvpkt-zr-cswhbj activities. These keep your joints limber.? Balance [...] have night sweats. FOR MORE INFORMATION? National [place] of Arthritis and Musculoskeletal and Skin Diseases: www.niams.nih.gov? National [place] on Aging: www.anahi.nih.gov? [place] [employer] Rheumat[employer]: www.rheumatology.org Document Released: 07/16/2006 Document Revised: 11/30/2014 Document Reviewed: 2014ExitCare? Patient Information ?2015 [employer]. This information is not intended to replace [...] 10/07/2012 Document Reviewed: 03/27/2012ExitCare? Patient Information ?2015 [employer]. This information is not intended to replace advice given to you by your health care provider. Make sure you discuss any questions you have with your health care provider.Abrahan Pruett D.O.Access [address] [phone] ATIVE TOTAL KNEE ARTHROPLASTY HOME DISCHARGE INSTRUCTIONSINCISION [...] will continue at home, possible with the assistant terminal manager of Home Health Physical Therapy or in [...] too soon, you are considered an impaired driver medic, and this could be a problem. It [...] may report side effects to FDA at 9-898-BJB-2569.What other drugs will affect acetaminophen and oxycodone?Narcotic [...] with acetaminophen and oxycodone, including prescription and pbon-oeu-fknzzls medicines, vitamins, and herbal products. Not all [...] to ensure that the information provided by [employer]. ('[employer]') is accurate, up-to-date, and complete, but no guarantee is made to that effect. Drug information contained herein may be time sensitive. [employer] information has been compiled for use by healthcare practitioners and consumers in the [place] and therefore [employer] does not warrant that uses outside of the [place] are appropriate, unless specifically indicated otherwise. [employer]'s drug information does not endorse drugs, diagnose patients or recommend therapy. [employer] drug information is an informational resource designed [...] effective or appropriate for any given patient. [facility] does not assume any responsibility for any aspect of healthcare administered with the aid of information [facility] provides. The information contained herein is not intended to cover all possible uses, directions, precautions, warnings, drug interactions, allergic reactions, or adverse effects. If you have questions about the drugs you are taking, check with your doctor, nurse or pharmacist. Copyright 7604-8912 [employer]. Version: 16.01. Revision Date: 07/10/2017. Thank you for choosing [facility] Normal [facility] Auto Diffon 07-13-2018 Basophils Auto #/vol (Bld) 0.3 % Normal 0.0-2.0 [facility] Comment on above: Order Comment: Order Added by Discern Expert. Performed By: #### 1 9382061, 9604588, 6060783, 9430159, 831304544, 0754189, 8288067 ####[facility] [address] [place] [address] Basophils/Leukocytes Auto Pure number fraction (Bld) 0.0 E9/L Normal 0.0-0.2 [facility] Comment on above: Order Comment: Order Added by Discern Expert. Performed By: #### 1 1851562, 2040537, 3965379, 1724845, 224381195, 5748303, 9441405 ####[place] [address] [place] [address] Eosinophils/100 WBC Auto (Bld) 0.7 % Normal 0.0-8.0 [facility] Comment on above: Order Comment: Order Added by Discern Expert. Performed By: #### 1 0214898, 9653110, 1778495, 5674931, 336087394, 3522022, 9264246 ####[place] [address] [place] [address] Eosinophils/Leukocyte s Auto Pure number fraction (Bld) 0.1 E9/L Normal 0.0-0.5 [facility] Comment on above: Order Comment: Order Added by Discern Expert. Performed By: #### 1 9887590, 9083597, 6437482, 5405290, 127062944, 1450113, 7290212 ####[place] [address] [place] [address] Lymphocytes/100 WBC Auto (Bld) 14.2 % Normal 14.0-50.0 [facility] Comment on above: Order Comment: Order Added by Discern Expert. Performed By: #### 1 9163475, 4817799, 8717078, 6099947, 165178334, 9047881, 8803210 ####[address] [address] Lymphocytes/Leukocyte s Auto Pure number fraction (Bld) 1.4 E9/L Normal 1.0-4.0 [facility] Comment on above: Order Comment: Order Added by Discern Expert. Performed By: #### 1 0805633, 1308851, 0961275, 1077567, 663872202, 6922429, 1288601 ####[place] [address] [place] [address] Monocytes/100 WBC Auto (Bld) 12.3 % Normal 4.0-14.0 [facility] Comment on above: Order Comment: Order Added by Discern Expert. Performed By: #### 1 6479038, 2134653, 9308617, 2600217, 149749046, 6272709, 3129301 ####[facility] [address] [place] [address] Monocytes/Leukocytes Auto Pure number fraction (Bld) 1.2 E9/L High 0.2-1.0 [facility] Comment on above: Order Comment: Order Added by Discern Expert. Performed By: #### 1 2178423, 7769232, 9050201, 3202515, 491164483, 2057415, 6485216 ####[place] [address] [place] [address] Neutrophils/100 WBC Auto (Bld) 72.5 % Normal 36.0-75.0 [facility] Comment on above: Order Comment: Order Added by Discern Expert. Performed By: #### 1 7187988, 5856606, 2472679, 8533163, 208426512, 9967729, 9111109 ####[place] [address] [place] [address] Neutrophils/Leukocyte s Auto Pure number fraction (Bld) 7.3 E9/L Normal 2.0-7.5 [facility] Comment on above: Order Comment: Order Added by Discern Expert. Performed By: #### 1 3545563, 1789404, 6687739, 9739129, 903478857, 6521683, 5653799 ####[place] [address] [place] [address] BUNon 07-13-2018 Urea nitrogen mass conc 14 mg/dL Normal 5-21 [facility] Comment on above: Performed By: #### 1 2890242, 3717228, 9343728, 2022919, 020310354, 7957755, 7719691 ####[place] [address] [place] [address] CBC w/ Auto Diffon 8 Erythrocyte distribution width Auto Ratio (RBC) 14.2 % Normal 10.9-14.2 [facility] Comment on above: Performed By: #### 1 0288669, 7808220, 8567570, 5099700, 837042661, 2722792, 2082407 ####[facility] [address] [place] [address] Hematocrit Auto Volume Fraction (Bld) 33.8 % Low 34.0-46.0 [facility] Comment on above: Performed By: #### 1 1587772, 9210978, 3919072, 9012461, 676630555, 3157212, 7445220 ####[facility] [address] [place] [address] Hemoglobin mass conc (Bld) 11.5 g/dL Low 12.0-16.0 [facility] Comment on above: Performed By: #### 1 3953739, 3974713, 5121124, 6353568, 402363888, 0683220, 9709094 ####[place] [address] MCH Auto Entitic mass (RBC) 28.4 pg Normal 27.0-34.0 [facility] Comment on above: Performed By: #### 1 8466347, 3126991, 0902118, 0843950, 624046218, 2381345, 2573112 ####[place] [address] MCHC Auto mass conc (RBC) 34.0 g/dL Normal 31.4-39.3 [facility] Comment on above: Performed By: #### 1 9319807, 6684714, 5002571, 5316846, 277886552, 7946099, 2168898 ####[facility] [address] [place] [address] MCV Auto Entitic volume (RBC) 83.3 fL Normal 80.0-100.0 [facility] Comment on above: Performed By: #### 1 7561093, 5545442, 4218657, 6693941, 563922280, 0959708, 7706949 ####[place] [address] [place] [address] Platelet mean volume Auto Entitic volume (Bld) 8.6 fL Normal 6.4-10.8 [facility] Comment on above: Performed By: #### 1 3712397, 2193900, 6225907, 5201099, 734815818, 9744301, 3627381 ####[facility] [address] [place] [address] Platelets Auto #/vol (Bld) 260.0 E9/L Normal 150.0-500. 0 [facility] Comment on above: Performed By: #### 1 0144651, 7495818, 5057535, 3473027, 983950665, 4925947, 5651183 ####[facility] [address] [place] [address] RBC Auto #/vol (Bld) 4.0 E12/L Low 4.3-5.9 [facility] Comment on above: Performed By: #### 1 1968663, 8008916, 9207663, 1003191, 449877389, 7164482, 1533519 ####[facility] [address] [place] [address] WBC corrected for nucl RBC Auto #/vol (Bld) 10.1 E9/L Normal 4.0-11.0 [facility] Comment on above: Performed By: #### 1 9006033, 8359632, 3362281, 3065729, 782851598, 0403355, 4979547 ####[facility] [address] [place] [address] Creatinineon 07-13-2018 Creatinine mass conc 0.8 mg/dL Normal 0.5-1.3 [facility] Comment on above: Performed By: #### 1 2713317, 0235288, 9238775, 4327992, 889681928, 2507287, 0248645 ####[facility] [address] [place] [address] Interdisciplinary Note - Hubert e Manageron 07-13-2018 Interdisciplinary Note - Compensation/Benefits Specialist Pt is awake and alert in involved in plan of care. PCP verified, and insurance information verified. DME discussed.Contact information provided and white board updated. Family present at this time, Pt previously rounded with Trupti RAM and DR. Pruett. pt is aware of anticiapted DC home today. Pt is set up with [facility] for [facility]. Dneies any further DC needs or concerns. Normal [facility] Interdisciplinary Note - Leann n [...] OT is planned, pt is participating in [id number] program and will have PT at home per program. Normal [facility] Lyteson 07-13-2018 Anion gap 3 molar conc 11 mmol/L Normal 6-16 [facility] Comment on above: Performed By: #### 1 1363490, 9599184, 0678361, 7201467, 763752219, 9112032, 3160916 ####[facility] [address] [place] [address] Chloride molar conc 95 mmol/L Low 101-111 [facility] Comment on above: Performed By: #### 1 9632941, 3751979, 2238404, 2215509, 991401641, 8527964, 4646907 ####[facility] [address] [place] [address] CO2 molar conc 29 mmol/L Normal 21-31 [facility] Comment on above: Performed By: #### 1 5459395, 9622827, 4829297, 8699222, 491467016, 9317551, 4522890 ####[facility] [address] [place] [address] Potassium molar conc 4.0 mmol/L Normal 3.5-5.3 [facility] Comment on above: Performed By: #### 1 0858901, 3120609, 2083919, 8441932, 543838687, 3672109, 1613762 ####[facility] [address] [place] [address] Sodium molar conc 131 mmol/L Low 135-145 [facility] Comment on above: Performed By: #### 1 0642405, 4039478, 5761175, 0604151, 272067975, 5443969, 1586630 ####[facility] [address] [place] [address] Operative Reporton 8 Operative Report Date of [...] multiple injections and joint fluid therapy. X-raysdemonstrate ogxm-hm-fzzp medial joint space loss. Please refer to theadmitting History and Physical for further details.COMPONENTS: [employer] size 5 femur, size 5 tibia, [...] postoperative x-rays are satisfactory.Abrahan Pruett D.O.glsDictated: 07/12/2018 #[id number]: 07/13/2018 #[id number]: Abrahan Pruett D.O. [facility] Comment on above: Result Comment: Elec tronically [...] made to ensure accuracy, however, inadvertently computerized roustabout crew leader mistakes may be present.Subjective Patient states that [...] Lymph Auto: 14.2 % (07/13/18 05:29:00 EST) Eddy Auto: 12.3 % (07/13/18 05:29:00 EST) Eos Auto: 0.7 % (07/13/18 05:29:00 EST) Basophil Auto: 0.3 % (07/13/18 05:29:00 EST) Neutro Absolute: 7.3 E9/L (07/13/18 05:29:00 EST) Lymph Absolute: 1.4 E9/L (07/13/18 05:29:00 EST) Eddy Absolute: 1.2 E9/L High (07/13/18 05:29:00 EST) [...] High (07/13/18 08:03:00 EST) POC Device SN: [id number] (07/13/18 08:03:00 EST) POC Username: GALDINO SONI [...] 8% Susp-Oral, 30 mL, Oral, BID, PRN [place] 5/325 Tab, 2 tab(s), Oral, q4hr, PRN [place] 5/325 Tab, 1 tab(s), Oral, q4hr, PRN [...] MDI, 2 puff(s), Inhalation, QID, PRN Normal [facility] Comment on above: Result Comment: Elec tronically Signed By: Trupti SCHMIDT\.br\Date and Time Signed: 07/13/18 10:54 EST\.br\Electronically Co-Signed By: Suzy LEO MD\.br\Date and Time Co-Signed: 07/13/18 11:23 EST eGFRon 07-13-2018 GFR/1.73 sq M predicted among blacks MDRD vol rate/area (S/P/Bld) mL/min/{1.73_m2} Normal >=59 [facility] Comment on above: Order Comment: Order added by Discern Expert. Result Comment: eGFR is race adjusted. AA=. Performed By: #### 1 1450607, 0165793, 2181186, 4604258, 582805708, 5899383, 6022933 ####[facility] [address] [place] [address] GFR/1.73 sq M predicted among non-blacks MDRD vol rate/area (S/P/Bld) mL/min/{1.73_m2} Normal >=59 [facility] Comment on above: Order Comment: Order added by Discern Expert. Result Comment: Tableau Administrator elin kidney disease could be indicated at eGFR's of less than 60 mL/min/1.73m2. Kidney failure is indicated at less than 15 mL/min/1.73m2. Performed By: #### 1 5661705, 4919047, 7374405, 3524183, 775390266, 7085728, 1473813 ####[facility] [address] [place] [address] ABO/Rhon 07-12-2018 ABO/Rh Positive Invalid Interpretation Code [facility] Comment on above: Performed By: #### 1 0517209, 1560037, 27192853, 56637722 ####[facility] [address] [place] [address] ABO/Rh History Checkon 07-12 ABO/Rh History Check Verified Hx Blood Type Normal [facility] Comment on above: Performed By: #### 1 9619851, 1388079, 09257556, 42562000 ####[facility] [address] [place] [address] ABSCon 07-12-2018 ABSC Gel Interp Negative Normal [facility] Comment on above: Performed By: #### 1 7700949, 9847721, 44304397, 05637765 ####[facility] [address] [place] [address] Blood Bank ID#on 07-12-2018 BBID# [id number] Invalid Interpretation Code [facility] Comment on above: Performed By: #### 1 9485123, 6754177, 78475060, 58714774 ####[facility] [address] [place] [address] Consultation Noteon 07-12-20 Consultation Note Chief Complaint [...] made to ensure accuracy, however, inadvertently computerized roustabout crew leader mistakes may be present.Attestation Case reviewed and [...] 8% Susp-Oral, 30 mL, Oral, BID, PRN [place] 5/325 Tab, 2 tab(s), Oral, q4hr, PRN [place] 5/325 Tab, 1 tab(s), Oral, q4hr, PRN [...] High (07/12/18 11:53:00 EST) POC Device SN: [id number] (07/12/18 11:53:00 EST) POC Username: POC Username [...] recent placement. Signed By: Issa Agudelo MD [facility] Comment on above: Result Comment: Elec tronically [...] not cover 360 program and will need [facility] at discharge. Pt is agreeable with this. Verified PCP and insurance, discussed INPT status. Pt denies any questions or concerns about dc plans. Whiteboard updated. Normal [facility] Interdisciplinary Note - PTo n 07-12-2018 Interdisciplinary Note - PT PT Evaluation completed with an AM PAC score of 17/24. Pt performing bed mobility with SBA and transfers with CGA. Pt was able to ambulate 65 feet with FWW with CGA. Will follow daily. Please see PT treatment note for further recommendations Normal [facility] Main OR PACU I Recordon 06-29 Main OR PACU I Record PACU Phase I Docum ent Type FT Summary Primary Physician: Abrahan Pruett DO Finalized Date/Time: 07/12/18 12:16:59 Pt. Name: MAVIS PICKARD Evelia Delcid./Sex: 1960 Female Med Rec #: [id number] Physician: Abrahan Pruett DO Financial #: [id number] Pt. Type: I Room/Bed: N316/01 Admit/Disch: 07/12/18 [...] By: Clementina Wilks RN 07/12/18 12:16 Normal [facility] Main OR Preoperative Recordo n 07-12-2018 Main OR Preoperative Record PreOp Document Type FT Summary Primary Physician: Abrahan Pruett DO Finalized Date/Time: 07/12/18 08:26:12 Pt. Name: MAVIS PICKARD/Sex: 1960 Female Med Rec #: [id number] Physician: Abrahan Pruett DO Financial #: [id number] Pt. Type: A Room/Bed: [place] [address] Admit/Disch: 07/12/18 05:38:12 - Institution: Case Times [...] By: Latrice Harrington RN 07/12/18 08:26 Normal [facility] Operative Reporton 8 Operative Report Date [...] the proposed procedure.Yoni Noland Jr., TaviaglsDictated: 07/12/2018 #[id number]: 07/12/2018 #[id number]: Yoni Noland Jr., D.O. [facility] Comment on above: Result Comment: Elec tronically Signed By: Yoni Noland JR, DObr\Date and Time Signed: 07/12/18 16:17 EST Patient Education - Texton 1 09-12-2017 Patient Education - Text Abrahan Pruett D.O.Access [address] [place], [place] [id number]/[phone] ATIVE TOTAL KNEE ARTHROPLASTY HOME DISCHARGE INSTRUCTIONSINCISION [...] will continue at home, possible with the assistant terminal manager of Home Health Physical Therapy or in [...] too soon, you are considered an impaired driver medic, and this could be a problem. It is therefore advised not to drive until after your first office visit following surgeryFOLLOW-UP OFFICE VISIT: Alina Pruett D.O.Revised: 2010 [facility] Progress Note-Physicianon Protein mass conc Patient: ELEANOR [...] [F] 0.4 mg 0.2 mL, IV Push, u5iqlpaajohpghsvr 25 mg/mL Inj [F] 12.5 mg 0.5 mL, IV Push, q2min Problem list: All ProblemsDiabetes mellitus, insulin dependent (IDDM), controlled / SNOMED CT 012584580 / ConfirmedAsthma / SNOMED CT 127448018 / ConfirmedLocalized osteoarthritis of knee / SNOMED CT 790278498 / Confirmed, Active Problems (3)Asthma Diabetes mellitus, insulin dependent (IDDM), controlled Localized osteoarthritis of knee Histories Past Medical History: No active or resolved past medical history items have been selected or recorded. Family History: HypothyroidismSisterPrimar y malignant neoplasm of lungMotherPrimary malignant neoplasm of female genital organMotherDiabetes mellitus type 2Father Procedure history: Endometrial ablation (591039404).achilles tendon lengthening, left. Social History Social & Psychosocial WraprcLcoqjvl53/03/2018 Risk Assessment: Low RiskSubstance Abuse07/01/2018 Risk Assessment: Denies Substance EgycmZvbkwqx30/03/2018 Risk Assessment: Denies Tobacco Use. Physical Examination [...] Results review: No qualifying data available. Plan [place] [employer] Anesthesiologists (ASA) physical status classification: Class III. Anesthetic Preoperative Plan Anesthesia: Regional (Spinal, ADDUCTOR CANAL BLOCK). Anesthetic plan, risks, benefits, and alternatives discussed with the patient and/or family. Pt. and/or family present and agree to proceed as planned.. Discussed the importance of abstaining from tobacco products, and offered counseling if pt. desired.. Normal [facility] Comment on above: Result Comment: Elec tronically Signed By: Ligia DUKE DO, Yoni Grimm.kevan\Date and Time Signed: 07/12/18 08:54 EST UA With Cult Reflexon 2017 Bilirubin Ql (U) Negative Normal Negative [facility] Comment on above: Performed By: #### 1 8388474 ####[facility] [address] [facility] [place] [address] Clarity Nom (U) CLEAR Normal Clear [facility] Comment on above: Performed By: #### 1 2199532 ####[facility] [address] [place] [address] Color Auto Nom (U) YELLOW Normal Yellow [facility] Comment on above: Performed By: #### 1 4555180 ####[facility] [address] [facility] [place] [address] Epithelial cells.squamous LM.HPF #/area (Urine sed) 0-2 Normal 0-2 [facility] Comment on above: Performed By: #### 1 8905762 ####[facility] [address] [place] [address] Glucose Test strip mass conc (U) Negative Normal Negative [facility] Comment on above: Performed By: #### 1 0083870 ####[facility] [address] [place] [address] Hemoglobin Test strip Ql (U) Negative Normal Negative [facility] Comment on above: Performed By: #### 1 7286288 ####[facility] [address] [address] Ketones mass conc (U) Negative Normal Negative [facility] Comment on above: Performed By: #### 1 8466241 ####[facility] [address] [place] [address] [place].plasma/Lithiu m.RBC mass ratio (Bld) 0-3 Normal 0-3 [facility] Comment on above: Performed By: #### 1 7446466 ####[facility] [address] [place] [address] Mucus LM Ql (Urine sed) TRACE Normal [facility] Comment on above: Performed By: #### 1 0784878 ####[address] [address] Nitrite Test strip Ql (U) Negative Normal Negative [facility] Comment on above: Performed By: #### 1 6416848 ####[address] [address] pH Test strip (U) 5.5 [pH] Invalid Interpretation Code 5.0-9.0 [facility] Comment on above: Performed By: #### 1 8646112 ####[address] [address] Protein mass conc (U) Negative Normal Negative [facility] Comment on above: Performed By: #### 1 1986813 ####[address] [address] Specific gravity Relative Density (U) >=1.030 Invalid Interpretation Code 1.005-1.03 0 [facility] Comment on above: Performed By: #### 1 [id number] ####[address] [address] UA Spec Desc Salguero Normal [facility] Comment on above: Performed By: #### 1 [id number] ####[address] [address] Urobilinogen Test strip Qn (U) 0.2 {Brittany'U}/dL Normal 0.0-1.0 [facility] Comment on above: Performed By: #### 1 [id number] ####[address] [address] WBC Auto Ql (U) Negative Normal Negative [facility] Comment on above: Performed By: #### 1 [id number] ####[address] [address] WBC LM.HPF #/area (Urine sed) 0-5 Normal 0-5 [facility] Comment on above: Performed By: #### 1 [id number] ####[facility] [address] [place] [address] XR Knee 1 or 2 Views Righton [...] MD Transcribed by: DENNY Technologist: MARAL Diaz [facility] Coding Summary.on 07-03-2018 Coding Summary. CODING DATE: FINAL [facility] STATUS: Home (Routine DC) PAYOR: Sulma APC [...] Nesbitt CphT Date Saved: 07/02/2018 09:07 am [facility] Coding Summary. CODING DATE: FINAL [facility] STATUS: Home (Routine DC) PAYOR: Sulma APC [...] CphT Date Saved: 07/02/2018 09:07 am Normal [facility] ABO/Rhon 07-02-2018 ABO/Rh Positive Invalid Interpretation Code [facility] Comment on above: Performed By: #### 2 [id number] ####[facility] [address] [place] [address] BUNon 07-02-2018 Urea nitrogen mass conc 12 mg/dL Normal 5-21 [facility] Comment on above: Performed By: #### 1 [id number], 1704990, 9323687, 8174073, 179027777, 9501047, 1842493 ####[facility] [address] [place] [address] CBC w/Indiceson 07-02-2018 Erythrocyte distribution width Auto Ratio (RBC) 14.2 % Normal 10.9-14.2 [facility] Comment on above: Performed By: #### 1 [id number], 9015510, 1011375, 8036771, 624565527, 0157039, 7853187 ####[facility] [address] [place] [address] Hematocrit Auto Volume Fraction (Bld) 38.7 % Normal 34.0-46.0 [facility] Comment on above: Performed By: #### 1 2765566, 2345563, 4706558, 4546806, 924464326, 9583665, 5296479 ####[facility] [address] [place] [address] Hemoglobin mass conc (Bld) 13.0 g/dL Normal 12.0-16.0 [facility] Comment on above: Performed By: #### 1 8033182, 3755287, 6744384, 3690291, 955086072, 1114552, 4310535 ####[facility] [address] [place] [address] MCH Auto Entitic mass (RBC) 27.8 pg Normal 27.0-34.0 [facility] Comment on above: Performed By: #### 1 1813093, 4829611, 6772798, 0409801, 209313603, 5168374, 5314692 ####[address] [place] [address] MCHC Auto mass conc (RBC) 33.5 g/dL Normal 31.4-39.3 [facility] Comment on above: Performed By: #### 1 2223034, 5357421, 7427600, 2710998, 364028009, 1032919, 8237335 ####[place] [address] MCV Auto Entitic volume (RBC) 83.0 fL Normal 80.0-100.0 [facility] Comment on above: Performed By: #### 1 1507129, 5441057, 1108693, 0521564, 681244958, 4378171, 0593211 ####[place] [address] Platelet mean volume Auto Entitic volume (Bld) 9.1 fL Normal 6.4-10.8 [facility] Comment on above: Performed By: #### 1 0099029, 4618518, 8109469, 8947093, 659601617, 4651416, 5009008 ####[place] [address] Platelets Auto #/vol (Bld) 282.0 E9/L Normal 150.0-500. 0 [facility] Comment on above: Performed By: #### 1 2590226, 1673903, 9843029, 1427240, 863906954, 5714627, 5647571 ####[address] [address] RBC Auto #/vol (Bld) 4.7 E12/L Normal 4.3-5.9 [facility] Comment on above: Performed By: #### 1 7411827, 5319106, 3192592, 4453567, 419296473, 1314425, 0734624 ####[facility] [address] [place] [address] WBC corrected for nucl RBC Auto #/vol (Bld) 8.0 E9/L Normal 4.0-11.0 [facility] Comment on above: Performed By: #### 1 1547271, 0644406, 1475189, 6744043, 249313214, 4932103, 1772511 ####[facility] [address] [place] [address] Creatinineon 07-02-2018 Creatinine mass conc 0.7 mg/dL Normal 0.5-1.3 [facility] Comment on above: Performed By: #### 1 2215453, 6510383, 1894237, 7951599, 596831065, 7276420, 3539674 ####[facility] [address] [place] [address] Glu Fastingon 07-02-2018 Glucose mass conc 163 mg/dL High 55-99 [facility] Comment on above: Performed By: #### 1 7773590, 2021228, 3941605, 4237780, 162543726, 4070294, 7400449 ####[facility] [address] [place] [address] QicS7rzp 07-02-2018 Hemoglobin A1c/Hemoglobin.total Calculated mass fraction (Bld) 9.3 % High <=5.9 [facility] Comment on above: Performed By: #### 1 4753557, 8891711, 3113899, 9666751, 577650828, 0172304, 6113205 ####[facility] [address] [place] [address] Lyteson 07-02-2018 Anion gap 3 molar conc 11 mmol/L Normal 6-16 [facility] Comment on above: Performed By: #### 1 2524755, 3895959, 5691957, 1302751, 906645488, 8336213, 6808220 ####[facility] [address] [place] [address] Chloride molar conc 99 mmol/L Low 101-111 [facility] Comment on above: Performed By: #### 1 7148664, 9692445, 4561231, 1368197, 507426120, 0747094, 8772150 ####[facility] [address] [place] [address] CO2 molar conc 28 mmol/L Normal 21-31 [facility] Comment on above: Performed By: #### 1 4989216, 8431496, 2696588, 8964153, 171993624, 9372396, 5814469 ####[facility] [address] [place] [address] Potassium molar conc 4.0 mmol/L Normal 3.5-5.3 [facility] Comment on above: Performed By: #### 1 5370716, 9727631, 2068820, 1546101, 240073353, 5996340, 7020693 ####[facility] [address] [place] [address] Sodium molar conc 134 mmol/L Low 135-145 [facility] Comment on above: Performed By: #### 1 1506519, 6471919, 9524959, 8704700, 768649721, 1512210, 6768961 ####[facility] [address] [place] [address] UA With Cult Reflexon 2017 Bilirubin Ql (U) Negative Normal Negative [facility] Comment on above: Performed By: #### 1 2236315 ####[facility] [address] [place] [address] Clarity Nom (U) CLEAR Normal Clear [facility] Comment on above: Performed By: #### 1 0454073 ####[facility] [address] [place] [address] Color Auto Nom (U) YELLOW Normal Yellow [facility] Comment on above: Performed By: #### 1 4352870 ####[facility] [address] [place] [address] Epithelial cells.squamous LM.HPF #/area (Urine sed) 0-2 Normal 0-2 [facility] Comment on above: Performed By: #### 1 2467991 ####[facility] [address] [place] [address] Glucose Test strip mass conc (U) Negative Normal Negative [facility] Comment on above: Performed By: #### 1 2835387 ####[facility] [address] [place] [address] Hemoglobin Test strip Ql (U) Negative Normal Negative [facility] Comment on above: Performed By: #### 1 7696199 ####[address] [address] Ketones mass conc (U) Negative Normal Negative [facility] Comment on above: Performed By: #### 1 8580167 ####[address] [address] [place].plasma/Lithiu m.RBC mass ratio (Bld) 0-3 Normal 0-3 [facility] Comment on above: Performed By: #### 1 5719982 ####[facility] [address] [place] [address] Mucus LM Ql (Urine sed) TRACE Normal [facility] Comment on above: Performed By: #### 1 9892838 ####[facility] [address] [place] [address] Nitrite Test strip Ql (U) Negative Normal Negative [facility] Comment on above: Performed By: #### 1 8060426 ####[facility] [address] [place] [address] pH Test strip (U) 7.0 [pH] Invalid Interpretation Code 5.0-9.0 [facility] Comment on above: Performed By: #### 1 0131991 ####[facility] [address] [place] [address] Protein mass conc (U) Negative Normal Negative [facility] Comment on above: Performed By: #### 1 0598103 ####[facility] [address] [place] [address] Specific gravity Relative Density (U) 1.020 Invalid Interpretation Code 1.005-1.03 0 [facility] Comment on above: Performed By: #### 1 8780651 ####[facility] [address] [place] [address] UA Spec Desc Clean Catch Normal [facility] Comment on above: Performed By: #### 1 9870948 ####[facility] [address] [place] [address] Urobilinogen Test strip Qn (U) 0.2 {Brittany'U}/dL Normal 0.0-1.0 [facility] Comment on above: Performed By: #### 1 1291203 ####[facility] [address] [place] [address] WBC Auto Ql (U) Negative Normal Negative [facility] Comment on above: Performed By: #### 1 0385548 ####[facility] [address] [place] [address] WBC LM.HPF #/area (Urine sed) 0-5 Normal 0-5 [facility] Comment on above: Performed By: #### 1 4402067 ####[facility] [address] [place] [address] eGFRon 07-02-2018 GFR/1.73 sq M predicted among blacks MDRD vol rate/area (S/P/Bld) mL/min/{1.73_m2} Normal >=59 [facility] Comment on above: Order Comment: Order added by Discern Expert. Result Comment: eGFR is race adjusted. AA=. Performed By: #### 1 3072305, 5190319, 3318071, 5201721, 632161181, 7165445, 5623619 ####[facility] [address] [place] [address] GFR/1.73 sq M predicted among non-blacks MDRD vol rate/area (S/P/Bld) mL/min/{1.73_m2} Normal >=59 [facility] Comment on above: Order Comment: Order added by Discern Expert. Result Comment: [employer] Administrator elin kidney disease could be indicated at eGFR's of less than 60 mL/min/1.73m2. Kidney failure is indicated at less than 15 mL/min/1.73m2. Performed By: #### 1 7096847, 6223151, 8618170, 8478002, 509518740, 6707537, 2604205 ####[facility] [address] [place] [address] XR Chest 2 Viewson 8 XR Chest [...] M.D. Transcribed by: shama Technologist: DARBY Normal [facility] POINT OF CARE GLUCOSEon 06-30 Glucose mass conc 127 mg/dL Critically high 74-106 Th [facility] Comment on above: Performed By: #### P OCGLUC ####[facility] [address] [place] [address]Gerken Anai XR ANKLE LT 2Von 07-27-2017 XR ANKLE LT 2V [address] [place] [address] Patient: MAVIS PICKARD Exam Date: 07/27/2017DOB: 1960 Gender:F : JUSTINA Thorpe GIOTREVA Admission #: [id number] : Order #: [id number] HERE TO VIEW EXAM RADIOLOGY REPORT PROCEDURE: [...] Price M.D. on 07/27/2017 at 14:46 Normal [facility] XR ANKLE LT 2V [address] [place] [address] Patient: MAVIS PICKARD Exam Date: 07/27/2017DOB: 1960 Gender:F : JUSTINA MILLER Admission #: [id number] : Order #: [id number] HERE TO VIEW EXAM RADIOLOGY REPORT PROCEDURE: [...] M.D. on 07/27/2017 at 14:07 Normal [facility] PROF CHEM 8 (BAS METB)on Anion gap 15.6 mmol/L Normal [facility] Comment on above: Performed By: #### B MP ####[facility] [address] BUN/Creatinine Ratio 15.6 mg/mg Normal [facility] Comment on above: Performed By: #### B MP ####[facility] [address] Anai Calcium 9.4 mg/dL Normal 8.4-10.2 [facility] Comment on above: Performed By: #### B MP ####[facility] [address] [place] [address]Gerken Anai Chloride 101 mmol/L Normal 98-107 [facility] Comment on above: Performed By: #### B MP ####[facility] [address] [place] [address]Gerken Anai CO2 30.0 mmol/L Normal 22.0-30.0 [facility] Comment on above: Performed By: #### B MP ####[facility] [address] [place] [address]Gerken Anai Creatinine 0.82 mg/dL Normal 0.52-1.04 [facility] Comment on above: Performed By: #### B MP ####[facility] [address] [place] [address]Gerken Anai eGFR (non-black) mL/min/{1.73_m2} Normal >=60 Th [facility] Comment on above: Performed By: #### B MP ####[facility] [address] [place] [address]Gerken Anai Glucose mass conc 126 mg/dL Critically high 74-106 Th [facility] Comment on above: Performed By: #### B MP ####[facility] [address] [place] [address] Anai Potassium molar conc 4.3 mmol/L Normal 3.4-5.0 [facility] Comment on above: Performed By: #### B MP ####[facility] [address] [place] [address]Gerken Anai Sodium 142 mmol/L Normal 137-145 [facility] Comment on above: Performed By: #### B MP ####[facility] [address] Anai Urea nitrogen 13.0 mg/dL Normal 7.0-17.0 [facility] Comment on above: Performed By: #### B MP ####[facility] [address] [place] [address]Gerken Anai GLYCOHEMOGLOBIN A1Con 2016 Glucose mass conc 229 mg/dL Normal [facility] Comment on above: Performed By: #### A 1C ####[facility] [address] [place], [place] [address]Vkhpni Anai Hemoglobin A1c/Hemoglobin.total mass fraction (Bld) 9.6 % Critically high <=6.0 [facility] Comment on above: Performed By: #### A 1C ####[facility] [address] [place] [address]Gerken Anai PROF CHEM 8 (BAS METB)on Anion gap 12.2 mmol/L Normal [facility] Comment on above: Performed By: #### B MP ####[facility] [address] [place], [place] [address]Gerken Anai BUN/Creatinine Ratio 18.8 mg/mg Normal [facility] Comment on above: Performed By: #### B MP ####[facility] [address] [place], [place] [address]Gerken Anai Calcium 9.7 mg/dL Normal 8.4-10.2 [facility] Comment on above: Performed By: #### B MP ####[facility] [address] [place], [place] [address]Gerken Anai Chloride 99 mmol/L Normal 98-107 [facility] Comment on above: Performed By: #### B MP ####[facility] [address] [place] [address]Ger[place] Anai CO2 32.0 mmol/L Critically high 22.0-30.0 [facility] Comment on above: Performed By: #### B MP ####[facility] [address] [place], [place] [address]Gerken Anai Creatinine 0.81 mg/dL Normal 0.52-1.04 [facility] Comment on above: Performed By: #### B MP ####[facility] [address] [place], [place] [address]Gerken Anai eGFR (non-black) mL/min/{1.73_m2} Normal >=60 Th [facility] Comment on above: Performed By: #### B MP ####[facility] [address] [place], [place] [address]Kyenxq Karen Glucose mass conc 126 mg/dL Critically high 74-106 Th [facility] Comment on above: Performed By: #### B MP ####[facility] [address] [place], [place] [address]Cbicxj Anai Potassium molar conc 4.1 mmol/L Normal 3.4-5.0 [facility] Comment on above: Performed By: #### B MP ####[facility] [address] [place], [place] [address]Kjnqgv Anai Sodium 140 mmol/L Normal 137-145 [facility] Comment on above: Performed By: #### B MP ####[facility] [address] [place], [place] [address]Gkwgim Anai Urea nitrogen 15.0 mg/dL Normal 7.0-17.0 [facility] Comment on above: Performed By: #### B MP ####[facility] [address] [place], [place] [address] An[address] CT ANKLE LT WO CONon 017 CT ANKLE LT WO CON [address] [place] [address] Patient: MAVIS PICKARD Exam Date: 03/07/2017DOB: 1960 Gender:F : JUSTINA AmaliaEdu MILLER Admission #: [id number] : DR RASHAD TERAN Order #: [id number] HERE TO VIEW EXAM RADIOLOGY REPORT PROCEDURE: [...] Price M.D. on 03/07/2017 at 10:32 Normal [facility] Vital Signs Date Time Vital Sign Value Performing Clinician Facility 06-14-2023 08:30-0500 Body height 170.18 cm Rashad Mast [facility] [employer] Other 06-14-2023 08:30-0500 Body mass index (BMI) [Ratio] 36.18 kg/m2 Rashad Mast [facility] [employer] Other 06-14-2023 08:30-0500 Body temperature 97.6 [degF] Rashad Mast Other [facility] [employer] Other 06-14-2023 08:30-0500 Body weight 104.78 kg Rashad Mast Other [facility] Other 06-14-2023 08:30-0500 Diastolic blood pressure 78 mm[Hg] Rashad Mast Other [facility] Other 06-14-2023 08:30-0500 Respiratory rate 18 /min Rashad Mast Other [facility] [employer] Other 06-14-2023 08:30-0500 SaO2% (BldA) [Mass fraction] 96 % Rashad Mast Other [facility] Other 06-14-2023 08:30-0500 Systolic blood pressure 124 mm[Hg] Rashad Mast [facility] [employer] Other 06-03-2023 01:33-0400 Diastolic blood pressure 78 mm[Hg] DO Rashad Mast Work Phone: [facility] 06-03-2023 01:33-0400 Heart rate 75 /min DO Rashad Mast Work Phone: [facility] 06-03-2023 01:33-0400 Respiratory rate 16 /min DO Rashad Mast Work Phone: [facility] 06-03-2023 01:33-0400 SaO2% (BldA) [Mass fraction] 98 % DO Rashad Mast Work Phone: [facility] 06-03-2023 01:33-0400 Systolic blood pressure 140 mm[Hg] DO Rasahd Mast Work Phone: [facility] 06-02-2023 21:56-0400 Body height 170.18 cm DO Rashad Mast Work Phone: [facility] 06-02-2023 21:56-0400 Body temperature 98.1 [degF] DO Rashad Mast Work Phone: [facility] 06-02-2023 21:56-0400 Body weight 116.57 kg DO Rashad Mast Work Phone: [facility] 05-21-2023 08:00-0400 Body height 170.18 cm Rashad Mast Other [employer] Other 05-21-2023 08:00-0400 Body mass index (BMI) [Ratio] 40.2 kg/m2 Rashad Mast Other [employer] Other 05-21-2023 08:00-0400 Body temperature 96.5 [degF] Rashad Mast Other [employer] Other 05-21-2023 08:00-0400 Body weight 116.44 kg Rashad Mast Other [employer] Other 05-21-2023 08:00-0400 Diastolic blood pressure 80 mm[Hg] Rashad Mast Other [employer] Other 05-21-2023 08:00-0400 Respiratory rate 18 /min Rashad Mast Other [employer] Other 05-21-2023 08:00-0400 SaO2% (BldA) [Mass fraction] 97 % Rashad Mast Other [employer] Other 05-21-2023 08:00-0400 Systolic blood pressure 124 mm[Hg] Rashad Mast Other [employer] Other 03-28-2023 08:53-0400 Body height 170.18 cm DO Rashad Mast Work Phone: [facility] 03-28-2023 08:53-0400 Body mass index (BMI) [Ratio] 40.7 kg/m2 DO Rashad Mast Work Phone: [facility] 03-28-2023 08:53-0400 Body weight 117.93 kg DO Rashad Mast Work Phone: [facility] 03-28-2023 08:47-0400 Body temperature 97.7 [degF] DO Rashad Mast Work Phone: [facility] 03-28-2023 08:47-0400 Diastolic blood pressure 83 mm[Hg] DO Rashad Mast Work Phone: [facility] 03-28-2023 08:47-0400 Heart rate 74 /min DO Rashad Mast Work Phone: [facility] 03-28-2023 08:47-0400 Respiratory rate 20 /min DO Rashad Mast Work Phone: [facility] 03-28-2023 08:47-0400 Systolic blood pressure 152 mm[Hg] DO Rashad Mast Work Phone: [facility] 02-26-2023 08:00-0400 Body height 170.18 cm Rashad Mast Other [employer] Other 02-26-2023 08:00-0400 Body mass index (BMI) [Ratio] 41.05 kg/m2 Rashad Mast Other [employer] Other 02-26-2023 08:00-0400 Body weight 118.89 kg Rashad Mast Other [employer] Other 02-26-2023 08:00-0400 Diastolic blood pressure 78 mm[Hg] Rashad Mast Other [employer] Other 02-26-2023 08:00-0400 Respiratory rate 18 /min Rashad Mast Other [employer] Other 02-26-2023 08:00-0400 SaO2% (BldA) [Mass fraction] 97 % Rashad Mast Other [employer] Other 02-26-2023 08:00-0400 Systolic blood pressure 140 mm[Hg] Rashad Mast Other [employer] Other 02-08-2023 10:00-0400 Body height 170.18 cm Rashad Mast Other [employer] Other 02-08-2023 10:00-0400 Body mass index (BMI) [Ratio] 40.91 kg/m2 Rashad Mast Other [employer] Other 07-13-2023 10:00-0400 Body temperature 97.6 [degF] Rashad Mast Other [employer] Other 02-08-2023 10:00-0400 Body weight 118.48 kg Rashad Mast Other [employer] Other 02-08-2023 10:00-0400 Diastolic blood pressure 68 mm[Hg] Rashad Mast Other [employer] Other 02-08-2023 10:00-0400 Respiratory rate 18 /min Rashad Mast Other [employer] Other 02-08-2023 10:00-0400 SaO2% (BldA) [Mass fraction] 98 % Rashad Mast Other [employer] Other 02-08-2023 10:00-0400 Systolic blood pressure 120 mm[Hg] Rashad Mast Other [employer] Other 10-16-2022 09:45-0400 Body height 170.18 cm Rashad Mast Other [employer] Other 10-16-2022 09:45-0400 Body mass index (BMI) [Ratio] 41.06 kg/m2 Rashad Mast Other [employer] Other 10-16-2022 09:45-0400 Body temperature 98.6 [degF] Rashad Mast Other [employer] Other 10-16-2022 09:45-0400 Body weight 118.93 kg Rashad Mast Other [employer] Other 10-16-2022 09:45-0400 Diastolic blood pressure 80 mm[Hg] Rashad Mast Other [employer] Other 10-16-2022 09:45-0400 Respiratory rate 18 /min Rashad Mast Other [employer] Other 10-16-2022 09:45-0400 SaO2% (BldA) [Mass fraction] 99 % Rashad Mast Other [employer] Other 10-16-2022 09:45-0400 Systolic blood pressure 122 mm[Hg] Rashad Mast Other [employer] Other 08-14-2022 09:15-0500 Body height 170.18 cm Rashad Mast Other [employer] Other 08-14-2022 09:15-0500 Body mass index (BMI) [Ratio] 41.22 kg/m2 Rashad Mast Other [employer] Other 08-14-2022 09:15-0500 Body temperature 96.7 [degF] Rashad Mast Other [employer] Other 08-14-2022 09:15-0500 Body weight 119.39 kg Rashad Mast Other [employer] Other 08-14-2022 09:15-0500 Diastolic blood pressure 80 mm[Hg] Rashad Mast Other [employer] Other 08-14-2022 09:15-0500 Respiratory rate 18 /min Rashad Mast Other [employer] Other 08-14-2022 09:15-0500 SaO2% (BldA) [Mass fraction] 96 % Rashad Mast Other [employer] Other 08-14-2022 09:15-0500 Systolic blood pressure 110 mm[Hg] Rashad Mast Other [employer] Other 06-26-2022 09:45-0500 Body height 170.18 cm Rashad Mast Other [employer] Other 06-26-2022 09:45-0500 Body mass index (BMI) [Ratio] 42.33 kg/m2 Rashad Mast Other [employer] Other 06-26-2022 09:45-0500 Body temperature 97.2 [degF] Rashad Mast Other [employer] Other 06-26-2022 09:45-0500 Body weight 122.61 kg Rashad Mast Other [employer] Other 06-26-2022 09:45-0500 Diastolic blood pressure 84 mm[Hg] Rashad Mast Other [employer] Other 06-26-2022 09:45-0500 Respiratory rate 18 /min Rashad Mast Other [employer] Other 06-26-2022 09:45-0500 SaO2% (BldA) [Mass fraction] 97 % Rashad Mast Other [employer] Other 06-26-2022 09:45-0500 Systolic blood pressure 124 mm[Hg] Rashad Mast Other [employer] Other 05-22-2022 11:45-0400 Body height 170.18 cm Rashad Mast Other [employer] Other 05-22-2022 11:45-0400 Body mass index (BMI) [Ratio] 42.66 kg/m2 Rashad Mast Other [employer] Other 05-22-2022 11:45-0400 Body temperature 97 [degF] Rashad Mast Other [employer] Other 05-22-2022 11:45-0400 Body weight 123.56 kg Rashad Mast Other [employer] Other 05-22-2022 11:45-0400 Diastolic blood pressure 76 mm[Hg] Rashad Mast Other [employer] Other 05-22-2022 11:45-0400 Respiratory rate 18 /min Rashad Mast Other [employer] Other 05-22-2022 11:45-0400 SaO2% (BldA) [Mass fraction] 96 % Rashad Mast Other [employer] Other 05-22-2022 11:45-0400 Systolic blood pressure 120 mm[Hg] Rashad Mast Other [employer] Other 03-27-2022 10:30-0400 Body height 170.18 cm Rashad Mast Other [employer] Other 03-27-2022 10:30-0400 Body mass index (BMI) [Ratio] 42.53 kg/m2 Rashad Mast Other [employer] Other 03-27-2022 10:30-0400 Body temperature 98.1 [degF] Rashad Mast Other [employer] Other 03-27-2022 10:30-0400 Body weight 123.2 kg Rashad Mast Other [employer] Other 03-27-2022 10:30-0400 Diastolic blood pressure 80 mm[Hg] Rashda Mast Other [employer] Other 03-27-2022 10:30-0400 Respiratory rate 18 /min Rashad Mast Other [employer] Other 03-27-2022 10:30-0400 SaO2% (BldA) [Mass fraction] 95 % Rashad Mast Other [employer] Other 03-27-2022 10:30-0400 Systolic blood pressure 110 mm[Hg] Rashad Mast Other [employer] Other 03-02-2022 17:15-0400 Body height 170.18 cm Rashad Mast Other [employer] Other 03-02-2022 17:15-0400 Body mass index (BMI) [Ratio] 41.23 kg/m2 Rashad Mast Other [employer] Other 03-02-2022 17:15-0400 Body temperature 97.7 [degF] Rashad Mast Other [employer] Other 03-02-2022 17:15-0400 Body weight 119.43 kg Rashad Mast Other [employer] Other 03-02-2022 17:15-0400 Diastolic blood pressure 80 mm[Hg] Rashad Mast Other [employer] Other 03-02-2022 17:15-0400 Respiratory rate 18 /min Rashad Mast Other [employer] Other 03-02-2022 17:15-0400 SaO2% (BldA) [Mass fraction] 97 % Rashad Mast Other [employer] Other 03-02-2022 17:15-0400 Systolic blood pressure 124 mm[Hg] Rashad Mast Other [employer] Other Encounters Encounter Date Encounter Type Care Provider Facility Start: 08-15-2023 End: 08-15-2023 ambulatory Rashad Mast Other [employer] Other Start: 08-15-2023 Telephone encounter Rashad Mast [facility] Start: 08-13-2023 End: 08-13-2023 ambulatory Rashad Mast Other [employer] Other Start: 08-13-2023 Nursing evaluation o f patient and report Rashad Mast [facility] Start: 06-18-2023 End: 06-18-2023 ambulatory BALTAZAR A VISCI Not Available Start: 06-14-2023 End: 06-14-2023 ambulatory Rashad Mast Other [employer] Other Start: 06-14-2023 Office outpatient visit 25 minutes Rashad Mast [facility] Start: 06-14-2023 Telephone encounter Rashad Mast [facility] Start: 06-02-2023 End: 06-03-2023 Emergency department patient visit Rashad Pendleton Facility:[facility] Start: 06-02-2023 End: 06-03-2023 Emergency department patient visit DO Rashad Mast Work Phone: [facility] Work Phone: Start: 05-28-2023 End: 05-28-2023 ambulatory Rashad Mast Other [employer] Other Start: 05-28-2023 Telephone encounter Rashad Mast [facility] Start: 05-21-2023 End: 05-21-2023 ambulatory Rashad Mast Other [employer] Other Start: 05-21-2023 Office outpatient visit 25 minutes Rashad Mast [facility] [place] Start: 03-28-2023 End: 03-28-2023 ambulatory Viki Copsey Facility:[facility] Start: 03-28-2023 End: 03-28-2023 ambulatory DO Rashad Mast Work Phone: [facility] Work Phone: Start: 03-28-2023 End: 03-28-2023 Discharged Recurring DO Rashad Mast Work Phone: [facility] [place] Work Phone: Start: 03-21-2023 End: 03-21-2023 ambulatory Rashad Mast Other [employer] Other Start: 03-21-2023 Telephone encounter Rashad Mast [facility] Start: 02-26-2023 End: 02-26-2023 ambulatory Rashad Mast Other [employer] Other Start: 02-26-2023 Office outpatient visit 15 minutes Rashad Mast [facility] Start: 02-09-2023 End: 02-09-2023 ambulatory Rashad Mast Other [employer] Other Start: 02-09-2023 Telephone encounter Rahsad Mast [facility] [place] Start: 02-08-2023 End: 02-08-2023 ambulatory Rashad Mast Other [employer] Other Start: 02-08-2023 Office outpatient visit 25 minutes Rashad Mast [facility] [place] Start: 02-07-2023 End: 02-07-2023 ambulatory Rashad Mast - [facility] Facility:[facility] Start: 02-07-2023 End: 02-07-2023 ambulatory DO Rashad Mast Work Phone: [facility] Work Phone: Start: 02-07-2023 End: 02-07-2023 Patient encounter procedure DO Rashad Mast Work Phone: [facility] Start: 01-16-2023 End: 01-16-2023 ambulatory Rashad Mast Other [employer] Other Start: 01-16-2023 Telephone encounter Rashad Mast [facility] Start: 12-26-2022 End: 12-26-2022 ambulatory Rashad Mast Other [employer] Other Start: 12-26-2022 Telephone encounter Rashad Mast [facility] Start: 11-22-2022 End: 11-22-2022 ambulatory Rashad Mast Other [employer] Other Start: 11-22-2022 Telephone encounter Rashad Mast [facility] Start: 10-21-2022 End: 10-21-2022 ambulatory Baltazar Visci Facility:[facility] Start: 10-21-2022 End: 10-21-2022 ambulatory DO Rashad Mast Work Phone: [facility] Work Phone: Start: 10-21-2022 End: 10-21-2022 Patient encounter procedure DO Rashad Mast Work Phone: [facility] Work Phone: Start: 10-17-2022 End: 10-17-2022 ambulatory Rashad Mast Other [employer] Other Start: 10-17-2022 Telephone encounter Rashad Mast [facility] Start: 10-16-2022 End: 10-16-2022 ambulatory Rashad Mast Other [employer] Other Start: 10-16-2022 Office outpatient visit 25 minutes Rashad Mast [facility] Start: 10-05-2022 End: 10-05-2022 ambulatory Rashad Mast Other [employer] Other Start: 10-05-2022 Telephone encounter Rashad Mast [facility] Start: 08-14-2022 End: 08-14-2022 ambulatory Rashad Mast Other [employer] Other Start: 08-14-2022 Office outpatient visit 15 minutes Rashad Mast [facility] [place] Start: 08-08-2022 End: 08-08-2022 ambulatory Rashad Mast Other [employer] Other Start: 08-08-2022 Telephone encounter Rashad Mast [facility] [place] Start: 06-26-2022 End: 06-26-2022 ambulatory Rashad Mast Other [employer] Other Start: 06-26-2022 Office outpatient visit 15 minutes Rashad Mast [facility] [place] Start: 06-02-2022 End: 06-02-2022 ambulatory Rashad Mast Other [employer] Other Start: 06-02-2022 Telephone encounter Rashad Mast [facility] [place] Start: 05-22-2022 End: 05-22-2022 ambulatory Rashad Mast Other [employer] Other Start: 05-22-2022 Office outpatient visit 25 minutes Rashad Mast [facility] [place] Start: 03-27-2022 End: 03-27-2022 ambulatory Rashad Mast Other [employer] Other Start: 03-27-2022 Office outpatient visit 25 minutes Rashad Mast [facility] Start: 03-06-2022 End: 03-06-2022 ambulatory Rashad Mast Other [employer] Other Start: 03-06-2022 Telephone encounter Rashad Mast [facility] [place] Start: 03-02-2022 End: 03-02-2022 ambulatory Rashad Mast Other [employer] Other Start: 03-02-2022 Office outpatient visit 25 minutes Rashad Mast [facility] Start: 02-22-2022 End: 02-22-2022 ambulatory Rashad Mast Other [employer] Other Start: 02-22-2022 Telephone encounter Rashad Mast [facility] [place] Start: 02-02-2022 End: 02-02-2022 ambulatory Rashad Mast Other [employer] Other Start: 02-02-2022 Telephone encounter Rashad Mast [facility] Start: 01-18-2022 End: 01-18-2022 ambulatory Rashad Mast Other [employer] Other Start: 01-18-2022 Telephone encounter Rashad Mast [facility] Start: 12-01-2021 End: 12-01-2021 ambulatory Rashad Mast Other [employer] Other Start: 12-01-2021 Telephone encounter Rashad Mast [facility] Start: 11-22-2021 End: 11-22-2021 ambulatory Rashad Mast Other [facility] [employer] Other Start: 11-22-2021 Telephone encounter Rashad Mast [facility] [place] Start: 06-08-2021 End: 06-08-2021 ambulatory Rashad Mast Other [employer] Other Start: 06-08-2021 Telephone encounter Rashad Mast [facility] [place] Start: 05-18-2021 Telephone encounter Rashad Mast [facility] Start: 07-15-2018 End: 07-26-2018 Patient encounter procedure RASHAD MAST [facility] Start: 07-12-2018 End: 07-13-2018 Evaluation and management of inpatient Abrahan Pruett Facility[facility] Start: 07-02-2018 End: 07-03-2018 Patient encounter procedure Abrahan Pruett [facility] Start: 07-27-2017 End: 07-27-2017 Ambulatory [facility] Facility:[facility] Start: 07-17-2017 End: 07-18-2017 Ambulatory [facility] Facility:[facility] Start: 05-04-2017 Ambulatory [facility] Fac[facility] ty:[facility] Start: 04-18-2017 End: 04-19-2017 Ambulatory [facility] Facility:[facility] Start: 03-07-2017 End: 03-08-2017 Ambulatory [facility] Facility:[facility] Procedures Date Procedure Procedure Detail Performing Clinician Start: 06-02-2023 SARS-CoV-2, Influenz a & RSV (PCR) DO Rashad Mast Work Phone: Plan of Treatment Date Care Activity Detail Author Start: 06-02-2023 Plain chest X-ray XR chest 2V* [facility] Start: 06-02-2023 XR Chest 2 Views [facility] Start: 10-21-2022 Screening mammograph y of bilateral breasts MM screening mammo BI w/CAD [facility] Patient Education Bronchitis, Adult ED Fi [facility] Work Phone: Patient referral [facility] Work Phone: Immunizations Immunization Date Immunization Notes Care Provider Lan de la cruz 08-13-2023 zoster vaccine recombinant Rashad Mast Other [employer] Other 05-21-2023 zoster vaccine recombinant Rashad Mast Other [employer] Other 05-21-2023 influenza, injectabl e, quadrivalent, preservative free Rashad Mast Other [employer] Other 05-25-2022 COVID-19 Pfizer (bivalent) Rashad Mast Other [employer] Other 05-25-2022 influenza, injectabl e, quadrivalent, preservative free Rashad Mast Other [employer] Other 03-22-2020 influenza, seasonal, injectable Rashad Mast Other [employer] Other 05-07-2019 influenza, seasonal, injectable Rashad Mast Other [employer] Other 09-29-2016 Toradol per 15 mg Rashad Mast Other [employer] Other 06-14-2016 influenza, injectabl e, quadrivalent, contains preservative Rashad Mast Other [employer] Other 05-02-2015 Toradol per 15 mg Rashad Mast Other [employer] Other Payers Date Payer Category Payer Self-pay [id number] 1960 Unknown [id number] [id number] [id number] 1960 Unknown [id number] 2.16.84 [id number] 1960 Unknown [id number] 2.16.84 [id number] 1960 Unknown [id number] 1957 Unknown [id number] Unknown [id number] 2.16.8 [id number] Unknown [id number] 2.16.8 [id number] Unknown [id number] 2.16.8 [id number] Unknown [id number] 2.16.8 [id number] Social History Date Type Detail Facility Unknown if ever smoked [employer] Other Sex Assigned At Sex Assigned At Bir th [employer] Other Start: 03-19-2021 End: 06-02-2023 Tobacco smoking status NHIS Never smoked tobacco (finding) [facility] Start: 1960 Sex Assigned At Female F [facility] Medical Equipment Procedure Code Equipment Code [...] how she does. Call if problems persist [employer] Other 10-30-2023 Evaluation note* Encounter Date Diagnosis Assessment Notes Treatment Notes Treatment Clinical Notes Apr, Unspecified asthma, uncomplicated (ICD-10 - J45.909) [employer] Other 10-23-2023 Evaluation note* Encounter Date Diagnosis [...] - J45.909) Currently quiet, continue present meds [employer] Other 08-30-2023 Progress note Author Viki Mcnulty [facility] March 28, 2023 8:53am Note Date/Time March 28, 2023 8: 53am [facility] [address] [place] [address] Wound Center Provider Note Signed Patient: Mavis Pickard MR#: [id number] : 1960 Acct:[id number] Age/Sex: 63 / F Copies to: Jeffry/PreceptorRashadEvelia Mcnulty APRN~ HPI Date of Visit Date of Visit: Date of Service: 03/28/2023 Time of Service: 08:50 Narrative HPI: 02/28/23 Mavis is a 62-year-old female presenting to [facility] for an initial visit [...] 2022 Right leg ulcer Mode of Arrival/ [employer] 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 Lives with:: Spouse Appetite Description: Within Normal Limits Who helps w/ dressing change?: Wound Care Dept Smoking Status: Never smoker [facility] Medical History (Updated 03/21/23 @ 09:33 by Viki Copsey, TELETYPESETTER MONITOR) Asthma Diabetes Leg edema, right Ulcer of [...] Stasis Ulcer Thickness: Skin Breakdown Bed Appearance: [place] Percent of Wound Bed Granulated/Red: 100 Percent [...] By: <Electronically signed by ABRIL Mcnulty> 03/28/2353 [facility] Work Phone: 1(712) 185-868108-23-2023 Progress note Author Viki Mcnulty [facility] March 21, 2023 9:34am Note Date/Time March 21, 2023 9: 34am [facility] [address] [place] [address] Wound Center Provider Note Signed Patient: Mavis Pickard MR#: [id number] : 1960 Acct:[id number] Age/Sex: 62 / F Copies to: Jeffry/PreceptorRashad APRN~ HPI Date of Visit Date of Visit: Date of Service: 03/21/2023 Time of Service: 09:32 Narrative HPI: 02/28/23 Mavis is a 62-year-old female presenting to [facility] wound care [facility] for an initial visit [...] 2022 Right leg ulcer Mode of Arrival/ [employer] 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 Lives with:: Spouse Appetite Description: Within Normal Limits Who helps w/ dressing change?: Wound Care Dept Smoking Status: Never smoker [facility] Medical History (Updated 03/21/23 @ 09:33 [...] <Electronically signed by ABRIL Mcnulty> 03/21/23 0934 [facility] Work Phone: 1(358) 947-107408-02-2023 Progress note Author Viki Mcnulty [facility] February 28, 2023 11:36am Note Date/Time February 28, 2023 11: 36am [facility] [address] [place] [address] Wound Center Provider Note Signed Patient: Mavis Pickard MR#: [id number] : 1960 Acct:[id number] Age/Sex: 62 / F Copies to: Jeffry/PreceptorRashad DO-Evelia Mcnulty APRN~ HPI Date of Visit Date of Visit: Date of Service: 02/28/2023 Time of Service: 11:28 Narrative HPI: 02/28/23 Mavis is a 62-year-old female presenting to [facility] wound care [facility] for an initial visit [...] 2022 Right leg ulcer Mode of Arrival/ [employer] 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 Lives with:: Spouse Appetite Description: Within Normal Limits Who helps w/ dressing change?: Wound Care Dept Smoking Status: Never smoker [facility] Medical History (Updated 02/28/23 @ 11:34 [...] 0.1 CM Sq: 1.000 Surrounding Tissue Appearance: Dilkon and Hyperpigmented Surrounding Tissue Temp: Warm Drainage [...] 1128 Signed By: <Electronically signed by ABRIL Mcnulyt> 02/28/23 1136 [facility] Work Phone: 1(154) 300-561607-31-2023 Evaluation note* Encounter Date Diagnosis Assessment Notes [...] nasal spray and see if that helps [employer] Other 07-13-2023 Evaluation note* Encounter Date Diagnosis [...] is doing. She is trying to get [facility] paperwork completed so that she does not [...] me in the future if problems arise [employer] Other 03-20-2023 Evaluation note* Encounter Date Diagnosis [...] now, warning signs reviewed. Call if problems [employer] Other 01-16-2023 Evaluation note* Encounter Date Diagnosis [...] Recheck in 2 months, sooner if problems [employer] Other 01-10-2023 Evaluation note* Encounter Date Diagnosis Assessment Notes Treatment Notes Treatment Clinical Notes Jul, Type 2 diabetes mellitus without complications (ICD-10 - E11.9) [employer] Other 11-28-2022 Evaluation note* Encounter Date Diagnosis [...] for now. Keep working on weight loss. [employer] Other 11-04-2022 Evaluation note* Encounter Date Diagnosis Assessment Notes Treatment Notes Treatment Clinical Notes May, Type 2 diabetes mellitus without complications (ICD-10 - E11.9) [employer] Other 10-24-2022 Evaluation note* Encounter Date Diagnosis [...] Continue present Rx, keep seeing the counselor. [employer] Other 08-29-2022 Evaluation note* Encounter Date Diagnosis [...] at next visit. Continue seeing the counselor [employer] Other 08-04-2022 Evaluation note* Encounter Date Diagnosis [...] this in the long run or not. [employer] Other 06-22-2022 Evaluation note* Encounter Date Diagnosis Assessment Notes Treatment Notes Treatment Clinical Notes Dec, Type 2 diabetes mellitus without complications (ICD-10 - E11.9) [employer] Other 10-20-2021 Evaluation note* Encounter Date Diagnosis Assessment Notes Treatment Notes Treatment Clinical Notes Apr, Type 2 diabetes mellitus without complications (ICD-10 - E11.9) [employer] Other Evaluation noteNo InformationNortLeonar3Do Other Evaluation noteNo assessment information available [facility] Work Phone: Evaluation noteNo[employer] Other Evaluation note* Diagnosis Onset Date Resolution Status Diabetes chronic 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 Carolina 2019 Hospitalization History SEE ABOVE [employer] Other Hisrnul general Narrative - Reported* Type Description Date Medical History diabetes mellitus Medical History asthma Medical History Depression Surgical History knee arthroscopy Surgical History rt ring finger amputation Surgical History BREAST BIOPSY RIGHT Surgical History RIGHT KNEE REPLACEMENT 06/2018 Surgical History colonoscopy - Dr. Carolina 2015 Hospitalization History SEE ABOVE [facility] [employer] Other History general [facility] - [facility] [employer] Other History general Narrative - [facility] [employer] Other Summary Purpose Family History No Family [...] Wound of skin (T14.8 XXA) Referral Organization [facility] Family Rebekah Rabago Referring Provider [...] and content) DATE CREATED AUTHOR 01/22/2018 [facility] DATE CREATED AUTHOR AUTHOR'S ORGANIZ ATION 07/27/2018 [facility] DATE CREATED AUTHOR AUTHOR'S ORGANIZ ATION 06/19/2023 [facility] EPIC DATE CREATED AUTHOR AUTHOR'S ORGANIZ ATION 09/07/2023 [facility] REASON FOR VISIT (unrecogniz ed section and content) Refill/ MetforminRefillNS/CA NCELLED APPTQuestion about booster vacc.refillRefill/LantusRefill7 MTH FOLLOW UPRefill/ Lantus3 week follow up1 month Follow upRefill/ Metformin1 month Follow upRefill/ lancets1 month Follow upnausea2 month Follow uplow BSRefill/ InhalerRefill/ Zofran3 month follow up/ sore on left legrt leg woundRefill/ZofranAWVAsthma flare upFR ERFR ER Follow up [id number] SHINGLE VACCINERefill/ Zofran Care Teams (unrecognized sec [...] BE BASED ON THE PRIMARY CLINICAL RECORDS. [facility]. provides no warranty or guarantee of the accuracy or completeness of information in this document.
== END 2023-09-28 09:54 | disposition home or self-care (01) ==
LOC: VC 09:53
PROVIDERS: PCP Radiology Diagnostic Radiology; Visit Provider Radiology Diagnostic Radiology
DX: I80.01 Phlebitis and thrombophlebitis of superficial vessels of right lower extremity (principal)
CPT/HCPCS: 93971; G0463

== ENCOUNTER 2023-10-01 09:34 | Outpatient (OUT) | payer BC, SELFPAY ==
--- NOTE | 2023-10-01 09:35 | VEIN_ITS ---
The [address] [address] Patient Name: MAVIS PICKARD MRN: [id number] date: 1960 Sex: F Assigned Patient Location: Current Patient Location: Accession/Order Number: [id number] Exam Date: 10/01/2023 09:30 Report Date: 10/01/2023 11:07 At the request of: JEFFREY REYNA Procedure: VC INJ Foam Sclerosant [employer] PROCEDURE: VC INJ Foam Sclerosant [employer] COMPARISON: None. HISTORY: Pain due to varicose veins of bilateral legs I83.813 Pre-operative Diagnosis: CEAP class C5 venous insufficiency with pain, tenderness, edema and incompetent right saphenous and varicose vein(s), chronic venous insufficiency right leg secondary to venous incompetence Post-operative Diagnosis: CEAP class C5 venous insufficiency with pain, tenderness, edema and incompetent right saphenous and varicose vein(s), chronic venous insufficiency right leg secondary to venous incompetence Procedure Performed: 1. Ultrasound-guided microfoam chemical ablation with Varithenaregistered 2. Intraoperative ultrasound guidance Anesthesia: None Indications for Procedure: 63-year-old female who presents with a long history of lower extremity pain and swelling culminating in venous stasis ulcerations. The patient failed conservative medical therapy including medical compression stockings, exercise and analgesics. Prior procedures include endovenous laser ablation and Microfoam chemical ablation. Multiple incompetent varicosities of the right leg. Duplex scan showed reflux and enlarged diameters up to 5 mm. The patient underwent informed consent including management options where the complications of infection, bleeding, pain, and skin injury were discussed. Particular attention was spent discussing thrombus extension and deep vein thrombosis as well as the possibility of pulmonary embolus and treatment with oral or injectable blood thinners. Procedure: The patient walked to the procedure room. All applicable staff donned appropriate apparel. A procedure timeout was performed to confirm correct patient, correct extremity, correct procedure, and correct room set-up including presence of all applicable supplies, devices, and drugs. A duplex ultrasound, performed by myself confirmed the location and incompetence of branch saphenous varicosities and their course was marked on the skin together with the dilated tributaries. The extent of treatment of the vein and the associated varicosities was determined through ultrasound mapping. The skin was prepped and then punctured with a butterfly needle and advanced under ultrasound guidance. The Varithenaregistered canister was activated and the canister was primed and purged as required in the instructions for use. Varithenaregistered was drawn into a sterile syringe. The following injections were made: 5 cc injected into a 4 mm varicose vein right lateral knee 5 cc injected into a 4 mm varicose vein right mid medial thigh 5 cc injected into a 5 mm varicose vein right proximal medial thigh Varithenaregistered was slowly administered at 0.5-1.0 cc/second with close observation by ultrasound of its course in the vessels. Total volume utilized was: 15cc. Following administration of Varithenaregistered the leg was elevated and the patient was asked to repeatedly dorsiflex the ankle to limit flow of Varithenaregistered into perforating veins. Once appropriate spasm had been confirmed in the treated veins, the vascular catheter was removed from the leg and light pressure was applied over the puncture site for hemostasis. The common femoral and deep superficial veins were then evaluated for flow and compressibility prior to dressing placement. The lower extremity was kept elevated at 45 degrees above the horizontal and cording material was applied over the saphenous segments and tributaries to allow for eccentric compression over the target vessels including the targeted saphenous vein(s). A multilayer dressing was applied consisting of foam pads, coban and thigh-high 20-30 mm Hg compression elastic support hose were placed on the patient. The leg was lowered only after compression had been applied and the patient was immediately ambulatory. The patient ambulated 10 minutes under supervision and was without apparent concerns at time of release. Post-care instructions include advising patient to keep post-treatment bandages in place and dry for 48 hours, avoid extended periods of inactivity, avoid heavy exercise for one week, wear compression stockings on the treated leg continuously for two weeks, to walk daily for 10 minutes over the next month. The patient was instructed to take an anti-inflammatory medicine as needed and to follow up for color duplex scan of the Saphenous veins, the treated branch saphenous varicosities, the adjacent deep veins, and additional treatment within 7 days. PERSONNEL: Brandt Delacruz RN Electronically authenticated by: JEFFREY REYNA Date: 10/01/2023 11:07
--- OUTSIDE RECORDS SUMMARY | 2023-10-01 09:37 | XMS_ITS | CCD ---
Author Name Unknown Address [address] [place] [address] Organization [facility] Care Team Providers Care Cable Dispatcher Name Role Phone HIGHLANDER, PETER Unavailable Unavailable [...] Unavailable Mast, DO Rashad Primary Care Provider [phone] DO Baltazar Strange Attending Provider [phone] Mast, DO Rashad Primary Care Provider Mast, DO Rashad Attending Provider Mast, DO Rashad Primary Care Provider [phone] ABRIL Mcnulty Attending Provider Pendleton, DO Rashad Emergency Provider [phone] VISCI, BALTAZAR A Referring Unavailable VISCI, BALTAZAR [...] Translations: [penicillin] Drug Allergy 04-18-[address] [facility] Repository (1 source) Sulfonamides (Antibiotic) Drug allergy (disorder) 04-18-19 UNKNOWN [facility] Repository (1 source) Sulfamethoxazole; Translations: [sulfamethoxazole ] Drug Allergy [facility] Repository (20 sources) Penicillin V Drug Allergy Unknown [facility] Other (10 sources) sulfaSALAzine Drug Allergy Unknown [facility] Other (3 sources) Sulfonamide Drug allergy Unknown [facility] Other (18 sources) Substance with sulfonamide structure and antibacterial mechanism of action (substance) Drug allergy Unknown [facility] Other (5 sources) Penicillins; Translations: [Penicillins] Allergy to substance 03-19-20 Unknown Reaction [facility] (5 sources) Sulfonamides (Antibiotic); Translations: [Sulfa (Sulfonamide Antibiotics)] Allergy to substance 03-19-20 Unknown Reaction [facility] (1 source) Penicillin Drug Allergy 08-13-19 [facility] Repository Medications Current Medications Medication Drug [...] mg Subcutaneous once a week Sep, Active [id number] 200 actuat albuterol 0.09 mg/actuat metered dose [...] Once a day for 30 days Active [employer] - (2 sources) [employer] - USE DIRECTED TO TEST BLOOD [...] B (Bld) [Mass/Vol] 26.0 pg/mL Normal 5-100 [facility] Comment on above: Result Comment: PERF ORMED BY: [facility] [address] [place] [address] PATHOLOGIST GREEN BELT MARTINEZ GARZA M.D. Performed By: #### L IPID, CBC, URMACRERAT, CMP #### [facility] [address] COVID-19 / Flu A/B / RSV [...] or Cepheid Disclaimer revoked sooner. PERFORMED BY: [place] [address] PATHOLOGIST GREEN BELT MARTINEZ GARZA M.D. Normal [facility] Comment on above: Performed By: #### C EPHEID NEG, COVID19 FLU RSV #### [address] Cepheid COVID PCR Negativeon 06-03-2023 SARS-CoV-2 (COVID-19) RNA ROSA+probe Ql (Unsp spec) Negative Normal Negative [facility] Comment on above: Result Comment: This is a duplicate [employer]ep[facility] Xpert Xpress CoV-2/Flu/RSV Plus RNA by RT-PCR result to be used for statistical tracking purpose only. PERFORMED BY: [place] [address] PATHOLOGIST GREEN BELT MARTINEZ GARZA M.D. Performed By: #### C EPHEID NEG, COVID19 FLU RSV #### [address] Complete Blood Count Auto Di ffon 06-03-2023 Basophils (Bld) [#/Vol] 0.0 10*3/uL Normal 0.0-0.2 [facility] Comment on above: Result Comment: PERF ORMED BY: [place] [address] PATHOLOGIST GREEN BELT MARTINEZ GARZA M.D. Performed By: #### L IPID, CBC, URMACRERAT, CMP #### [address] Basophils/100 WBC (Bld) 0.3 % Normal . [facility] Comment on above: Performed By: #### L IPID, CBC, URMACRERAT, CMP #### [address] Eosinophils (Bld) [#/Vol] 0.2 10*3/uL Normal 0.0-0.45 [facility] Comment on above: Performed By: #### L IPID, CBC, URMACRERAT, CMP #### [address] Eosinophils/100 WBC (Bld) 2.8 % Normal . [facility] Comment on above: Performed By: #### L IPID, CBC, URMACRERAT, CMP #### [address] Erythrocyte distribution width (RBC) [Ratio] 14.6 % Normal 11.9-15.3 [facility] Comment on above: Performed By: #### L IPID, CBC, URMACRERAT, CMP #### [address] Hematocrit (Bld) [Volume fraction] 36.2 % Normal 34.0-46.4 [facility] Comment on above: Performed By: #### L IPID, CBC, URMACRERAT, CMP #### [address] Hemoglobin (Bld) [Mass/Vol] 12.6 g/dL Normal 11.8-15.4 [facility] Comment on above: Performed By: #### L IPID, CBC, URMACRERAT, CMP #### [address] Lymphocytes (Bld) [#/Vol] 3.3 10*3/uL Normal 1.00-4.8 [facility] Comment on above: Performed By: #### L IPID, CBC, URMACRERAT, CMP #### [address] Lymphocytes/100 WBC (Bld) 42.3 % Normal . [facility] Comment on above: Performed By: #### L IPID, CBC, URMACRERAT, CMP #### [address] MCH (RBC) [Entitic mass] 29.9 pg Normal 24.7-34.3 [facility] Comment on above: Performed By: #### L IPID, CBC, URMACRERAT, CMP #### [address] MCV (RBC) [Entitic vol] 85.9 fL Normal 80-100 [facility] Comment on above: Performed By: #### L IPID, CBC, URMACRERAT, CMP #### [address] Mean Corpuscular HGB Conc 34.8 g/dL Normal 32.0-35.0 [facility] Comment on above: Performed By: #### L IPID, CBC, URMACRERAT, CMP #### [address] Monocytes (Bld) [#/Vol] 0.6 10*3/uL Normal 0.0-0.8 [facility] Comment on above: Performed By: #### L IPID, CBC, URMACRERAT, CMP #### [address] Monocytes/100 WBC (Bld) 18.99 % Normal 0.00-20.00 [facility] Comment on above: Performed By: #### L IPID, CBC, URMACRERAT, CMP #### [address] Monocytes/100 WBC (Bld) 8.3 % Normal . [facility] Comment on above: Performed By: #### L IPID, CBC, URMACRERAT, CMP #### [address] Neutrophils (Bld) [#/Vol] 3.6 10*3/uL Normal 1.8-7.7 [facility] Comment on above: Performed By: #### L IPID, CBC, URMACRERAT, CMP #### [address] Neutrophils/100 WBC (Bld) 46.3 % Normal . [facility] Comment on above: Performed By: #### L IPID, CBC, URMACRERAT, CMP #### [address] NRBC% 0.2 /100{WBC} Normal 0-0.5 [facility] Comment on above: Performed By: #### L IPID, CBC, URMACRERAT, CMP #### [address] Platelet mean volume (Bld) [Entitic vol] 8.4 fL Normal 6.3-10.7 [facility] Comment on above: Performed By: #### L IPID, CBC, URMACRERAT, CMP #### [place] [address] [place] Platelets (Bld) [#/Vol] 303 10*3/uL Normal 150-450 [facility] Comment on above: Performed By: #### L IPID, CBC, URMACRERAT, CMP #### [address] RBC (Bld) [#/Vol] 4.21 10*6/uL Normal 3.60-5.00 [facility] Comment on above: Performed By: #### L IPID, CBC, URMACRERAT, CMP #### [address] WBC (Bld) [#/Vol] 7.7 10*3/uL Normal 3.8-11.6 [facility] Comment on above: Performed By: #### L IPID, CBC, URMACRERAT, CMP #### [facility] [address] [place] [address] Comprehensive Metabolic Pane tino 06-03-2023 Albumin [Mass/Vol] 4.0 g/dL Normal 3.5-5.7 [facility] Comment on above: Performed By: #### L IPID, CBC, URMACRERAT, CMP #### [address] Albumin/Globulin [Mass ratio] 1.5 {ratio} Normal [facility] Comment on above: Performed By: #### L IPID, CBC, URMACRERAT, CMP #### [address] ALP [Catalytic activity/Vol] 72 U/L Normal 34-104 [facility] Comment on above: Performed By: #### L IPID, CBC, URMACRERAT, CMP #### [address] ALT [Catalytic activity/Vol] 16 U/L Normal 7-52 [facility] Comment on above: Performed By: #### L IPID, CBC, URMACRERAT, CMP #### [address] Anion gap [Moles/Vol] Not performed Normal 6.0-15.0 [facility] Comment on above: Performed By: #### L IPID, CBC, URMACRERAT, CMP #### [address] AST [Catalytic activity/Vol] 20 U/L Normal 13-39 [facility] Comment on above: Performed By: #### L IPID, CBC, URMACRERAT, CMP #### [place] [address] [place] Bilirubin [Mass/Vol] 0.3 mg/dL Normal 0.3-1.0 [facility] Comment on above: Performed By: #### L IPID, CBC, URMACRERAT, CMP #### [place] [address] [place] Calcium [Mass/Vol] 9.1 mg/dL Normal 8.6-10.3 [facility] Comment on above: Performed By: #### L IPID, CBC, URMACRERAT, CMP #### [facility] [address] Chloride [Moles/Vol] 105 mmol/L Normal 98-107 [facility] Comment on above: Performed By: #### L IPID, CBC, URMACRERAT, CMP #### [facility] [address] CO2 [Moles/Vol] 26.7 mmol/L Normal 21.0-31.0 [facility] Comment on above: Performed By: #### L IPID, CBC, URMACRERAT, CMP #### [address] Creatinine [Mass/Vol] 0.72 mg/dL Normal 0.60-1.20 [facility] Comment on above: Performed By: #### L IPID, CBC, URMACRERAT, CMP #### [address] Creatinine Clr Calc Pharmacy 108.28 [facility] Comment on above: Result Comment: PERF ORMED BY: [place] [address] PATHOLOGIST GREEN BELT MARTINEZ GARZA M.D. Performed By: #### L IPID, CBC, URMACRERAT, CMP #### [address] GFR/1.73 sq M.predicted MDRD (S/P/Bld) [Vol rate/Area] mL/min/{1.73_m2} [facility] Comment on above: Performed By: #### L IPID, CBC, URMACRERAT, CMP #### [facility] [address] Globulin (S) [Mass/Vol] 2.6 g/dL [facility] Comment on above: Performed By: #### L IPID, CBC, URMACRERAT, CMP #### [address] Glucose [Mass/Vol] 198 mg/dL High 70-100 [facility] Comment on above: Result Comment: [place] Glucose Reference Range is dependent on time and content of last meal. Glucose of more than 200 mg/dL in a nonstressed, ambulatory subject supports the diagnosis of Diabetes Mellitus. ADA recommended reference range Performed By: #### L IPID, CBC, URMACRERAT, CMP #### [facility] [address] Potassium Normal 3.5-5.1 [facility] Comment on above: Result Comment: Spec imen hemolyzed, redraw requested Performed By: #### L IPID, CBC, URMACRERAT, CMP #### [address] Protein [Mass/Vol] 6.6 g/dL Normal 6.4-8.9 [facility] Comment on above: Performed By: #### L IPID, CBC, URMACRERAT, CMP #### [address] Sodium [Moles/Vol] 132 mmol/L Low 136-145 [facility] Comment on above: Performed By: #### L IPID, CBC, URMACRERAT, CMP #### [address] Urea nitrogen [Mass/Vol] 21 mg/dL Normal 7-25 [facility] Comment on above: Performed By: #### L IPID, CBC, URMACRERAT, CMP #### [address] Creatine Kinaseon 06-03-2023 CK [Catalytic activity/Vol] 50 U/L Normal 30-223 [facility] Comment on above: Performed By: #### L IPID, CBC, URMACRERAT, CMP #### [address] ECG 12 lead ECGon 06-03-2023 ECG 12 lead ECG [facility] [place] [address] [place] [id number] Electrocardiograph Report Signed Patient: Mavis Pickard MR#: [id number] : 1960 Acct:[id number] Age/Sex: 63 / F ADM Date: 06/02/23 Loc: ER Room: Type: [facility] ER Attending Dr: Ordering Provider: Rashad Pendleton [...] Signed By Winston Moe MD 2116 Normal [facility] Redraw Potassiumon 3 Potassium [Moles/Vol] 3.9 mmol/L Normal 3.5-5.1 [facility] Comment on above: Result Comment: PERF ORMED BY: [address] [place] [address] PATHOLOGIST GREEN BELT MARTINEZ GARZA M.D. Performed By: #### R EDSEUN K #### [address] [address] [facility] Troponin I High Sensitivityo n 06-03-2023 Troponin I High Sensitivity 4.2 pg/mL Normal 0.0-15.0 [facility] Comment on above: Result Comment: PERF ORMED BY: [address] [place] [address] PATHOLOGIST GREEN BELT MARTINEZ GARZA M.D. Performed By: #### L IPID, CBC, URMACRERAT, CMP #### [facility] [address] XR chest 2V*on 06-03-2023 XR chest 2V* [facility] [place] [address] [place] [address] XRay Report Signed Patient: Mavis Pickard MR#: [id number] : 1960 Acct:[id number] Age/Sex: 63 / F ADM Date: 06/02/23 Loc: ER Room: Type: [facility] ER Attending Dr: Copies to: Rashad Pendleton [...] Holden Herrmann M.D.06/03/2023 9:48 AM Dictation Location: [place] [address] Transcribed By: [facility] 06/03/23947 Dictated By: Holden Herrmann II, MD 06/03/23946 Signed By: 06/03/23947 Normal [facility] Alanine aminotransferase [En zymatic activity/volume] in Serum or PlasmaOrdered By: Rashad Pendleton on 06-02-2023 ALT [Catalytic activity/Vol] 16 U/L 7-52 [facility] Albumin [Mass/volume] in Ser um or Plasma by Bromocresol green (BCG) dye binding methoOrdered By: Rashad Pendleton on 06-02-2023 Albumin BCG dye [Mass/Vol] 4.0 g/dL 3.5-5.7 [facility] Alkaline phosphatase [Enzyma tic activity/volume] in Serum or PlasmaOrdered By: Rashad Pendleton on 06-02-2023 ALP [Catalytic activity/Vol] 72 U/L 34-104 [facility] Aspartate aminotransferase [ Enzymatic activity/volume] in Serum or PlasmaOrdered By: Rashad Pendleton on 06-02-2023 AST [Catalytic activity/Vol] 20 U/L 13-39 [facility] Basophils Auto (Bld) [#/Vol] Ordered By: Rashad Pendleton on 06-02-2023 Basophils (Bld) [#/Vol] 0.0 10*3/uL 0.0-0.2 [facility] Basophils/100 WBC Auto (Bld) Ordered By: Rashad Pendleton on 06-02-2023 Basophils/100 WBC (Bld) 0.3 % . [facility] Bilirubin.total [Mass/volume ] in Serum or PlasmaOrdered By: Rashad Pendleton on 06-02-2023 Bilirubin [Mass/Vol] 0.3 mg/dL 0.3-1.0 [facility] COVID CepheidOrdered By: Denise Pendleton on 06-02-2023 SARS-CoV-2 (COVID-19) Ab IA Ql Negative Negative [facility] Comment on above: This is a duplicate [employer] [facility] Xpert Xpress CoV-2/Flu/RSV Plus RNA by RT-PCR result to be used for statistical tracking purpose only. SARS-CoV-2 (COVID-19) RNA ROSA+probe Ql (Unsp spec) [facility] Calcium [Mass/volume] in Ser um or PlasmaOrdered By: Rashad Pendleton on 06-02-2023 Calcium [Mass/Vol] 9.1 mg/dL 8.6-10.3 [facility] Carbon dioxide, total [Moles /volume] in Serum or PlasmaOrdered By: Rashad Pendleton on 06-02-2023 CO2 [Moles/Vol] 26.7 mmol/L 21.0-31.0 [facility] Chloride [Moles/volume] in S alexander or PlasmaOrdered By: Rashad Pendleton on 06-02-2023 Chloride [Moles/Vol] 105 mmol/L 98-107 [facility] Creatine kinase [Enzymatic a ctivity/volume] in Serum or PlasmaOrdered By: Rashad Pendleton on 06-02-2023 CK [Catalytic activity/Vol] 50 U/L 30-223 [facility] Creatinine [Mass/volume] in Serum or PlasmaOrdered By: Rashad Pendleton on 06-02-2023 Creatinine [Mass/Vol] 0.72 mg/dL 0.60-1.20 [facility] Eosinophils Auto (Bld) [#/Vo l]Ordered By: Rashad Pendleton on 06-02-2023 Eosinophils (Bld) [#/Vol] 0.2 10*3/uL 0.0-0.45 [facility] Eosinophils/100 WBC Auto (Bl d)Ordered By: Rashad Pendleton on 06-02-2023 Eosinophils/100 WBC (Bld) 2.8 % . [facility] Erythrocyte distribution wid th Auto (RBC) [Ratio]Ordered By: Rashad Pendleton on 06-02-2023 Erythrocyte distribution width (RBC) [Ratio] 14.6 % 11.9-15.3 [facility] Globulin Calc (S) [Mass/Vol] Ordered By: Rashad Pendleton on 06-02-2023 Globulin (S) [Mass/Vol] 2.6 g/dL [facility] Glucose [Mass/volume] in Ser um or PlasmaOrdered By: Rashad Pendleton on 06-02-2023 Glucose [Mass/Vol] 198 mg/dL 70-100 [facility] Comment on above: ADA recommended refe rence rangeRandom Glucose Reference Range is dependent on time and content of last meal. Glucose of more than 200 mg/dL in a nonstressed, ambulatory subject supports the diagnosis of Diabetes Mellitus. Hematocrit Auto (Bld) [Volum e fraction]Ordered By: Rashad Pendleton on 06-02-2023 Hematocrit (Bld) [Volume fraction] 36.2 % 34.0-46.4 [facility] Hemoglobin [Mass/volume] in BloodOrdered By: Rashad Pendleton on 06-02-2023 Hemoglobin (Bld) [Mass/Vol] 12.6 g/dL 11.8-15.4 [facility] Leukocytes [#/volume] correc vandana for nucleated erythrocytes in Blood by Automated counOrdered By: Rashad Pendleton on 06-02-2023 WBC corrected for nucl RBC Auto (Bld) [#/Vol] 7.7 10*3/uL 3.8-11.6 [facility] Lymphocytes Auto (Bld) [#/Vo l]Ordered By: Rashad Pendleton on 06-02-2023 Lymphocytes (Bld) [#/Vol] 3.3 10*3/uL 1.00-4.8 [facility] Lymphocytes/100 WBC Auto (Bl d)Ordered By: Rashad Pendleton on 06-02-2023 Lymphocytes/100 WBC (Bld) 42.3 % . [facility] MCH Auto (RBC) [Entitic mass ]Ordered By: Rashad Pendleton on 06-02-2023 MCH (RBC) [Entitic mass] 29.9 pg 24.7-34.3 [facility] MCHC Auto (RBC) [Mass/Vol]Or dered By: Rashad Pendleton on 06-02-2023 MCHC (RBC) [Mass/Vol] 34.8 g/dL 32.0-35.0 [facility] MCV Auto (RBC) [Entitic vol] Ordered By: Rashad Pendleton on 06-02-2023 MCV (RBC) [Entitic vol] 85.9 fL 80-100 [facility] Monocyte distribution width [Entitic volume] in Blood by AutomatedOrdered By: Rashad Pendleton on 06-02-2023 Monocyte distribution width Auto (Bld) [Entitic vol] 18.99 % 0.00-20.00 [facility] Monocytes Auto (Bld) [#/Vol] Ordered By: Rashad Pendleton on 06-02-2023 Monocytes (Bld) [#/Vol] 0.6 10*3/uL 0.0-0.8 [facility] Monocytes/100 WBC Auto (Bld) Ordered By: Rashad Pendleton on 06-02-2023 Monocytes/100 WBC (Bld) 8.3 % . [facility] Natriuretic peptide B [Mass/ Vol]Ordered By: Rashad Pendleton on 06-02-2023 Natriuretic peptide B (Bld) [Mass/Vol] 26.0 pg/mL 5-100 [facility] Neutrophils Auto (Bld) [#/Vo l]Ordered By: Rashad Pendleton on 06-02-2023 Neutrophils (Bld) [#/Vol] 3.6 10*3/uL 1.8-7.7 [facility] Neutrophils/100 WBC Auto (Bl d)Ordered By: Rashad Pendleton on 06-02-2023 Neutrophils/100 WBC (Bld) 46.3 % . [facility] No Panel InformationOrdered By: Rashad Pendleton on 06-02-2023 Estimated GFR (CKD-EPI) > 60.0 mL/Min [facility] Creatinine Clearance (Chem 108.28 [facility] Nucleated erythrocytes [Pres ence] in Blood by Automated countOrdered By: Rashad Pendleton on 06-02-2023 Nucleated RBC Auto Ql (Bld) 0.2 /100{WBC} 0-0.5 [facility] Platelet mean volume Auto (B ld) [Entitic vol]Ordered By: Rashad Pendleton on 06-02-2023 Platelet mean volume (Bld) [Entitic vol] 8.4 fL 6.3-10.7 [facility] Platelets Auto (Bld) [#/Vol] Ordered By: Rashad Pendleton on 06-02-2023 Platelets (Bld) [#/Vol] 303 10*3/uL 150-450 [facility] Protein [Mass/volume] in Ser um or PlasmaOrdered By: Rashad Pendleton on 06-02-2023 Protein [Mass/Vol] 6.6 g/dL 6.4-8.9 [facility] RBC Auto (Bld) [#/Vol]Ordere d By: Rashad Pendleton on 06-02-2023 RBC (Bld) [#/Vol] 4.21 10*6/uL 3.60-5.00 [facility] Serum or plasma albumin/glob ulin mass ratioOrdered By: Rashad Pendleton on 06-02-2023 Albumin/Globulin [Mass ratio] 1.5 {ratio} [facility] Serum or plasma anion gap de terminationOrdered By: Rashad Pendleton on 06-02-2023 Anion gap [Moles/Vol] TNP [facility] Comment on above: Test not performed Sodium [Moles/volume] in Ser um or PlasmaOrdered By: Rashad Pendleton on 06-02-2023 Sodium [Moles/Vol] 132 mmol/L 136-145 [facility] Troponin I.cardiac [Mass/vol ume] in Serum or Plasma by Detection limit <= 0.01 ng/Ordered By: Rashad Pendleton on 06-02-2023 Troponin I.cardiac DL <= 0.01 ng/mL [Mass/Vol] 4.2 pg/mL 0.0-15.0 [facility] Urea nitrogen [Mass/volume] in Serum or PlasmaOrdered By: Rashad Pendleton on 06-02-2023 Urea nitrogen [Mass/Vol] 21 mg/dL 7-25 [facility] WBC Auto (Bld) [#/Vol]Ordere d By: Rashad Pendleton on 06-02-2023 WBC (Bld) [#/Vol] 7.7 10*3/uL 3.8-11.6 [facility] A1C HEMOGLOBINon 05-21-2023 HbA1c (Bld) [Mass fraction] 6.3 % [employer] Other HbA1c (Bld) [Mass fraction]o n 05-21-2023 A1C HEMOGLOBIN [employer] Other A1C HEMOGLOBINon 02-08-2023 HbA1c (Bld) [Mass fraction] 6.3 % [employer] Other HbA1c (Bld) [Mass fraction]o n 02-08-2023 A1C HEMOGLOBIN [employer] Other Alanine aminotransferase [En zymatic activity/volume] in Serum or PlasmaOrdered By: Rashad Teran on 02-07-2023 ALT [Catalytic activity/Vol] 21 U/L Normal 7-52 [facility] Comment on above: Order Comment: Reaso n for Exam Type 2 diabetes mellitus without complications Performed By: #### L IPID, CBC, URMACRERAT, CMP #### [facility] [address] Albumin [Mass/volume] in Ser um or Plasma by Bromocresol green (BCG) dye binding methoOrdered By: Rashad Teran on 02-07-2023 Albumin BCG dye [Mass/Vol] 4.3 g/dL 3.5-5.7 [facility] Alkaline phosphatase [Enzyma tic activity/volume] in Serum or PlasmaOrdered By: Rashad Teran on 02-07-2023 ALP [Catalytic activity/Vol] 78 U/L Normal 34-104 [facility] Comment on above: Order Comment: Reaso n for Exam Type 2 diabetes mellitus without complications Performed By: #### L IPID, CBC, URMACRERAT, CMP #### [facility] [address] Aspartate aminotransferase [ Enzymatic activity/volume] in Serum or PlasmaOrdered By: Rashad Mast on 02-07-2023 AST [Catalytic activity/Vol] 24 U/L Normal 13-39 [facility] Comment on above: Order Comment: Reaso n for Exam Type 2 diabetes mellitus without complications Performed By: #### L IPID, CBC, URMACRERAT, CMP #### [facility] [address] Automated basophil %Ordered By: Rashad Mast on 02-07-2023 Basophils/100 WBC (Bld) 1.0 % Normal . [facility] Comment on above: Order Comment: Reaso n for Exam Type 2 diabetes mellitus without complications Performed By: #### L IPID, CBC, URMACRERAT, CMP #### [facility] [address] [place] [address] Automated basophil countOrde red By: Rashad Mast on 02-07-2023 Basophils (Bld) [#/Vol] 0.1 10*3/uL Normal 0.0-0.2 [facility] Comment on above: Order Comment: Reaso n for Exam Type 2 diabetes mellitus without complications Result Comment: PERF ORMED BY: [place] [address] PATHOLOGIST GREEN BELT MARTINEZ GARZA M.D. Performed By: #### L IPID, CBC, URMACRERAT, CMP #### [facility] [address] [place] [address] Automated blood monocyte cou ntOrdered By: Rashad Mast on 02-07-2023 Monocytes (Bld) [#/Vol] 0.6 10*3/uL Normal 0.0-0.8 [facility] Comment on above: Order Comment: Reaso n for Exam Type 2 diabetes mellitus without complications Performed By: #### L IPID, CBC, URMACRERAT, CMP #### [facility] [address] Automated eosinophil %Ordere d By: Rashad Mast on 02-07-2023 Eosinophils/100 WBC (Bld) 3.5 % Normal . [facility] Comment on above: Order Comment: Reaso n for Exam Type 2 diabetes mellitus without complications Performed By: #### L IPID, CBC, URMACRERAT, CMP #### [facility] [address] [place] [address] Automated eosinophil countOr dered By: Rashad Mast on 02-07-2023 Eosinophils (Bld) [#/Vol] 0.3 10*3/uL Normal 0.0-0.45 [facility] Comment on above: Order Comment: Reaso n for Exam Type 2 diabetes mellitus without complications Performed By: #### L IPID, CBC, URMACRERAT, CMP #### [facility] [address] [place] [address] Automated monocyte %Ordered By: Rashad Mast on 02-07-2023 Monocytes/100 WBC (Bld) 7.4 % Normal . [facility] Comment on above: Order Comment: Reaso n for Exam Type 2 diabetes mellitus without complications Performed By: #### L IPID, CBC, URMACRERAT, CMP #### [facility] [address] [place] [address] Automated neutrophil %Ordere d By: Rashad Mast on 02-07-2023 Neutrophils/100 WBC (Bld) 53.6 % Normal . [facility] Comment on above: Order Comment: Reaso n for Exam Type 2 diabetes mellitus without complications Performed By: #### L IPID, CBC, URMACRERAT, CMP #### [facility] [address] [place] [address] Bilirubin.total [Mass/volume ] in Serum or PlasmaOrdered By: Rashad Mast on 02-07-2023 Bilirubin [Mass/Vol] 0.6 mg/dL Normal 0.3-1.0 [facility] Comment on above: Order Comment: Reaso n for Exam Type 2 diabetes mellitus without complications Performed By: #### L IPID, CBC, URMACRERAT, CMP #### [facility] [address] [place] [id number] [place] Calcium [Mass/volume] in Ser um or PlasmaOrdered By: Rashad Mast on 02-07-2023 Calcium [Mass/Vol] 9.6 mg/dL Normal 8.6-10.3 [facility] Comment on above: Order Comment: Reaso n for Exam Type 2 diabetes mellitus without complications Performed By: #### L IPID, CBC, URMACRERAT, CMP #### [facility] [address] [place] [address] [place] Carbon dioxide, total [Moles /volume] in Serum or PlasmaOrdered By: Rashad Mast on 02-07-2023 CO2 [Moles/Vol] 28.0 mmol/L Normal 21.0-31.0 [facility] Comment on above: Order Comment: Reaso n for Exam Type 2 diabetes mellitus without complications Performed By: #### L IPID, CBC, URMACRERAT, CMP #### [facility] [address] [place] [id number] [place] Chloride [Moles/volume] in S alexander or PlasmaOrdered By: Rashad Mast on 02-07-2023 Chloride [Moles/Vol] 103 mmol/L Normal 98-107 [facility] Comment on above: Order Comment: Reaso n for Exam Type 2 diabetes mellitus without complications Performed By: #### L IPID, CBC, URMACRERAT, CMP #### [facility] [address] [id number] [place] Cholesterol [Mass/volume] in Serum or PlasmaOrdered By: Rashad Mast on 02-07-2023 Cholesterol [Mass/Vol] 119 mg/dL Low 140-200 [facility] Comment on above: Chol less than [...] #### L IPID, CBC, URMACRERAT, CMP #### [facility] [address] Cholesterol in LDL Calc [Mas s/Vol]Ordered By: Rashad Teran on 02-07-2023 Cholesterol in LDL [Mass/Vol] 40 mg/dL 0-100 [facility] Comment on above: LDL ATP III CLASSIFI CATIONLDL less than 100 mg/dL OptimalLDL 100-129 mg/dL Near or above optimalLDL 130-159 mg/dL Borderline highLDL 160-189 mg/dL HighLDL greater than 189 mg/dL Very high Cholesterol in VLDL Calc [Ma ss/Vol]Ordered By: Rashad Teran on 02-07-2023 Cholesterol in VLDL [Mass/Vol] 29 mg/dL [facility] Complete Blood Count Auto Di ffon 02-07-2023 Mean Corpuscular HGB Conc 33.2 g/dL Normal 32.0-35.0 [facility] Comment on above: Order Comment: Reaso n for Exam Type 2 diabetes mellitus without complications Performed By: #### L IPID, CBC, URMACRERAT, CMP #### [facility] [address] NRBC% 0.2 /100{WBC} Normal 0-0.5 [facility] Comment on above: Order Comment: Reaso n for Exam Type 2 diabetes mellitus without complications Performed By: #### L IPID, CBC, URMACRERAT, CMP #### [facility] [address] Comprehensive Metabolic Pane tino 02-07-2023 Albumin [Mass/Vol] 4.3 g/dL Normal 3.5-5.7 [facility] Comment on above: Order Comment: Reaso n for Exam Type 2 diabetes mellitus without complications Performed By: #### L IPID, CBC, URMACRERAT, CMP #### [facility] [address] GFR/1.73 sq M.predicted MDRD (S/P/Bld) [Vol rate/Area] mL/min/{1.73_m2} Normal [facility] Comment on above: Order Comment: Reaso n for Exam Type 2 diabetes mellitus without complications Performed By: #### L IPID, CBC, URMACRERAT, CMP #### [facility] [address] [place] [address] [place] Creatinine [Mass/volume] in Serum or PlasmaOrdered By: Rashad Mast on 02-07-2023 Creatinine [Mass/Vol] 0.82 mg/dL Normal 0.60-1.20 [facility] Comment on above: Order Comment: Reaso n for Exam Type 2 diabetes mellitus without complications Performed By: #### L IPID, CBC, URMACRERAT, CMP #### [facility] [address] [place] [address] [place] Creatinine [Mass/volume] in UrineOrdered By: Rashad Mast on 02-07-2023 Creatinine (U) [Mass/Vol] 140.0 mg/dL 11.0-20.0 [facility] Erythrocyte distribution wid th [Ratio] by Automated countOrdered By: Rashad Mast on 02-07-2023 Erythrocyte distribution width (RBC) [Ratio] 14.3 % Normal 11.9-15.3 [facility] Comment on above: Order Comment: Reaso n for Exam Type 2 diabetes mellitus without complications Performed By: #### L IPID, CBC, URMACRERAT, CMP #### [facility] [address] [place] [address] [place] Erythrocytes [#/volume] in B lood by Automated countOrdered By: Rashad Mast on 02-07-2023 RBC (Bld) [#/Vol] 4.98 10*6/uL Normal 3.60-5.00 [facility] Comment on above: Order Comment: Reaso n for Exam Type 2 diabetes mellitus without complications Performed By: #### L IPID, CBC, URMACRERAT, CMP #### [facility] [address] [place] [address] [place] Glucose [Mass/volume] in Ser um or PlasmaOrdered By: Rashad Mast on 02-07-2023 Glucose [Mass/Vol] 122 mg/dL High 70-100 [facility] Comment on above: ADA recommended refe rence rangeRandom Glucose Reference Range is dependent on time and content of last meal. Glucose of more than 200 mg/dL in a nonstressed, ambulatory subject supports the diagnosis of Diabetes Mellitus. Order Comment: Reaso n for Exam Type 2 diabetes mellitus without complications Result Comment: [place] om Glucose Reference Range is dependent on time and content of last meal. Glucose of more than 200 mg/dL in a nonstressed, ambulatory subject supports the diagnosis of Diabetes Mellitus. ADA recommended reference range Performed By: #### L IPID, CBC, URMACRERAT, CMP #### [facility] [address] Hematocrit [Volume Fraction] of Blood by Automated countOrdered By: Rashad [employer] on 02-07-2023 Hematocrit (Bld) [Volume fraction] 42.0 % Normal 34.0-46.4 [facility] Comment on above: Order Comment: Reaso n for Exam Type 2 diabetes mellitus without complications Performed By: #### L IPID, CBC, URMACRERAT, CMP #### [facility] [address] [place] [address] Hemoglobin [Mass/volume] in BloodOrdered By: [employer] on 02-07-2023 Hemoglobin (Bld) [Mass/Vol] 14.0 g/dL Normal 11.8-15.4 [facility] Comment on above: Order Comment: Reaso n for Exam Type 2 diabetes mellitus without complications Performed By: #### L IPID, CBC, URMACRERAT, CMP #### [facility] [address] [place] [address] [place] Leukocytes [#/volume] correc vandana for nucleated erythrocytes in Blood by Automated counOrdered By: [employer] on 02-07-2023 WBC corrected for nucl RBC Auto (Bld) [#/Vol] 7.4 10*3/uL 3.8-11.6 [facility] Leukocytes [#/volume] in Blo od by Automated countOrdered By: RashadChessPark on 02-07-2023 WBC (Bld) [#/Vol] 7.4 10*3/uL Normal 3.8-11.6 [facility] Comment on above: Order Comment: Reaso n for Exam Type 2 diabetes mellitus without complications Performed By: #### L IPID, CBC, URMACRERAT, CMP #### [facility] [address] [place] [address] Lipid Panelon 02-07-2023 LDL Cholesterol,Calculate d 40 mg/dL Normal 0-100 [facility] Comment on above: Order Comment: Reaso n for Exam Type 2 diabetes mellitus without complications Result Comment: LDL ATP III CLASSIFICATION LDL less than 100 mg/dL Optimal LDL 100-129 mg/dL Near or above optimal LDL 130-159 mg/dL Borderline high LDL 160-189 mg/dL High LDL greater than 189 mg/dL Very high Performed By: #### L IPID, CBC, URMACRERAT, CMP #### [address] Triglyceride w/Reflex 148 mg/dL Normal 0-149 [facility] Comment on above: Order Comment: Reaso [...] #### L IPID, CBC, URMACRERAT, CMP #### [address] VLDL CHOLESTEROL 29 mg/dL Normal [facility] Comment on above: Order Comment: Reaso n for Exam Type 2 diabetes mellitus without complications Performed By: #### L IPID, CBC, URMACRERAT, CMP #### [address] Lymphocytes [#/volume] in Bl ood by Automated countOrdered By: Rashad Teran on 02-07-2023 Lymphocytes (Bld) [#/Vol] 2.6 10*3/uL Normal 1.00-4.8 [facility] Comment on above: Order Comment: Reaso n for Exam Type 2 diabetes mellitus without complications Performed By: #### L IPID, CBC, URMACRERAT, CMP #### [facility] [address] [place] [address] [place] Lymphocytes/100 leukocytes i n Blood by Automated countOrdered By: Rashad Mast on 02-07-2023 Lymphocytes/100 WBC (Bld) 34.5 % Normal . [facility] Comment on above: Order Comment: Reaso n for Exam Type 2 diabetes mellitus without complications Performed By: #### L IPID, CBC, URMACRERAT, CMP #### [facility] [address] [place] [address] [place] MCH [Entitic mass] by Automa vandana countOrdered By: Rashad Mast on 02-07-2023 MCH (RBC) [Entitic mass] 28.0 pg Normal 24.7-34.3 [facility] Comment on above: Order Comment: Reaso n for Exam Type 2 diabetes mellitus without complications Performed By: #### L IPID, CBC, URMACRERAT, CMP #### [facility] [address] [place] [address] MCHC Auto (RBC) [Mass/Vol]Or dered By: Rashad Mast on 02-07-2023 MCHC (RBC) [Mass/Vol] 33.2 g/dL 32.0-35.0 [facility] MCV [Entitic volume] by Auto mated countOrdered By: Rashad Mast on 02-07-2023 MCV (RBC) [Entitic vol] 84.3 fL Normal 80-100 [facility] Comment on above: Order Comment: Reaso n for Exam Type 2 diabetes mellitus without complications Performed By: #### L IPID, CBC, URMACRERAT, CMP #### [facility] [address] [place] [address] [place] MicroAlb Creat Ratio,Uon Creatinine, Urine (Random) 140.0 mg/dL High 11.0-20.0 [facility] Comment on above: Order Comment: Reaso n for Exam Type 2 diabetes mellitus without complications Performed By: #### L IPID, CBC, URMACRERAT, CMP #### [facility] [address] Microalbumin/Creatini ne Ratio 5.0 mg/g Normal 0.0-30.0 [facility] Comment on above: Order Comment: Reaso n for Exam Type 2 diabetes mellitus without complications Result Comment: 30-3 00 mg/g indicates an increased risk for diabetic nephropathy. Greater than 300 mg/g is consistent with clinical nephropathy. (Am. J. Kidney Disease 1995, 25:107) PERFORMED BY: [place] [address] PATHOLOGIST GREEN BELT MARTINEZ GARZA M.D. Performed By: #### L IPID, CBC, URMACRERAT, CMP #### [facility] [address] [place] [address] Microalbumin [Mass/volume] i n UrineOrdered By: Rashad Teran on 02-07-2023 Albumin DL <= 20 mg/L (U) [Mass/Vol] 0.8 mg/dL Normal 0.0-1.8 [facility] Comment on above: Order Comment: Reaso n for Exam Type 2 diabetes mellitus without complications Performed By: #### L IPID, CBC, URMACRERAT, CMP #### [facility] [address] [place] [address] Neutrophils [#/volume] in Bl ood by Automated countOrdered By: Rashad Teran on 02-07-2023 Neutrophils (Bld) [#/Vol] 4.0 10*3/uL Normal 1.8-7.7 [facility] Comment on above: Order Comment: Reaso n for Exam Type 2 diabetes mellitus without complications Performed By: #### L IPID, CBC, URMACRERAT, CMP #### [facility] [address] [place] [address] No Panel InformationOrdered By: Rashad Teran on 02-07-2023 Estimated GFR (CKD-EPI) > 60.0 mL/Min [facility] Creatinine Clearance (Chem N/A [facility] Nucleated erythrocytes [Pres ence] in Blood by Automated countOrdered By: Rashad Teran on 02-07-2023 Nucleated RBC Auto Ql (Bld) 0.2 /100{WBC} 0-0.5 [facility] Platelet mean volume [Entiti c volume] in Blood by Automated countOrdered By: Rashad Mast on 02-07-2023 Platelet mean volume (Bld) [Entitic vol] 9.3 fL Normal 6.3-10.7 [facility] Comment on above: Order Comment: Reaso n for Exam Type 2 diabetes mellitus without complications Performed By: #### L IPID, CBC, URMACRERAT, CMP #### [facility] [address] [place] [address] [place] Platelets [#/volume] in Bloo d by Automated countOrdered By: Rashad Mast on 02-07-2023 Platelets (Bld) [#/Vol] 242 10*3/uL Normal 150-450 [facility] Comment on above: Order Comment: Reaso n for Exam Type 2 diabetes mellitus without complications Performed By: #### L IPID, CBC, URMACRERAT, CMP #### [facility] [address] [place] [address] [place] Potassium [Moles/volume] in Serum or PlasmaOrdered By: Rashad Mast on 02-07-2023 Potassium [Moles/Vol] 4.4 mmol/L Normal 3.5-5.1 [facility] Comment on above: Order Comment: Reaso n for Exam Type 2 diabetes mellitus without complications Performed By: #### L IPID, CBC, URMACRERAT, CMP #### [facility] [address] [place] [address] [place] Protein [Mass/volume] in Ser um or PlasmaOrdered By: Rashad Mast on 02-07-2023 Protein [Mass/Vol] 6.9 g/dL Normal 6.4-8.9 [facility] Comment on above: Order Comment: Reaso n for Exam Type 2 diabetes mellitus without complications Performed By: #### L IPID, CBC, URMACRERAT, CMP #### [facility] [address] [place] [address] [place] Serum globulin measurement b y calculation (mass/volume)Ordered By: Rashad Mast on 02-07-2023 Globulin (S) [Mass/Vol] 2.6 g/dL Normal [facility] Comment on above: Order Comment: Reaso n for Exam Type 2 diabetes mellitus without complications Performed By: #### L IPID, CBC, URMACRERAT, CMP #### [facility] [address] Serum or plasma albumin/glob ulin mass ratioOrdered By: Rashad Teran on 02-07-2023 Albumin/Globulin [Mass ratio] 1.7 {ratio} Normal [facility] Comment on above: Order Comment: Reaso n for Exam Type 2 diabetes mellitus without complications Performed By: #### L IPID, CBC, URMACRERAT, CMP #### [facility] [address] Serum or plasma anion gap de terminationOrdered By: Rashad Teran on 02-07-2023 Anion gap [Moles/Vol] 12.4 mmol/L Normal 6.0-15.0 [facility] Comment on above: Order Comment: Reaso n for Exam Type 2 diabetes mellitus without complications Performed By: #### L IPID, CBC, URMACRERAT, CMP #### [facility] [address] Serum or plasma high density lipoprotein (HDL) cholesterol measurementOrdered By: Rashad Teran on 02-07-2023 Cholesterol in HDL [Mass/Vol] 49 mg/dL Normal 23-92 [facility] Comment on above: HDL CHOL ATP-III [...] #### L IPID, CBC, URMACRERAT, CMP #### [facility] [address] Serum or plasma total choles terol/high density lipoprotein (HDL) cholesterol mass ratOrdered By: Rashad Teran on 02-07-2023 Cholesterol.total/Cho lesterol in HDL [Mass ratio] 2.4 {ratio} Normal <5.0 [facility] Comment on above: Order Comment: Reaso n for Exam Type 2 diabetes mellitus without complications Result Comment: PERF ORMED BY: [place] [address] PATHOLOGIST GREEN BELT MARTINEZ GARZA M.D. Performed By: #### L IPID, CBC, CHAYO, TED #### [facility] [address] Sodium [Moles/volume] in Ser um or PlasmaOrdered By: Rashad Mast on 02-07-2023 Sodium [Moles/Vol] 139 mmol/L Normal 136-145 [facility] Comment on above: Order Comment: Reaso n for Exam Type 2 diabetes mellitus without complications Performed By: #### L IPIDTC, CHAYO, TED #### [facility] [address] Triglyceride [Mass/volume] i n Serum or PlasmaOrdered By: Rashad Mast on 02-07-2023 Triglyceride [Mass/Vol] 148 mg/dL 0-149 [facility] Comment on above: TRIG ATP III CLASSIF ICATIONTRIG less than 150 mg/dL NormalTRIG 150-199 mg/dL Borderline highTRIG 200-500 mg/dL High TRIG greater than 500 mg/dL Very highStandard traceable to the Center for Disease Conrtrol and Prevention (CDC) test method. Urea nitrogen [Mass/volume] in Serum or PlasmaOrdered By: Rashad Mast on 02-07-2023 Urea nitrogen [Mass/Vol] 15 mg/dL Normal 7-25 [facility] Comment on above: Order Comment: Reaso n for Exam Type 2 diabetes mellitus without complications Performed By: #### L IPID, CBC, CHAYO, CMP #### [facility] [address] Urine microalbumin/creatinin e mass ratioOrdered By: Rashad Mast on 02-07-2023 Albumin/Creatinine DL <= 20 mg/L (U) [Mass ratio] 5.0 mg/g 0.0-30.0 [facility] Comment on above: 30-300 mg/g indicate s an increased risk for diabetic nephropathy. Greater than 300 mg/g is consistent with clinical nephropathy. (Am. J. Kidney Disease 1995, 25:107) MM screening mammo BI w/CADo n 10-23-2022 MM screening mammo BI w/CAD [facility] [place] [address] [place] [address] Mammography Report Signed Patient: Mavis Pickard MR#: [id number] : 1960 Acct:[id number] Age/Sex: 62 / F ADM Date: 10/21/22 Loc: [place] [facility]: Baltazar Strange DO Copies to: [...] Anai Gomez M.D.10/23/2022 7:17 AM Dictation Location: [facility] Transcribed By: LADONNA 10/23/22716 Dictated By: Anai Gomez MD 10/23/2214 Signed By: 10/23/22716 [facility] A1C HEMOGLOBINon 10-16-2022 HbA1c (Bld) [Mass fraction] 7.0 % [employer] Other HbA1c (Bld) [Mass fraction]o n 10-16-2022 A1C HEMOGLOBIN [employer] Other A1C HEMOGLOBINon 06-26-2022 HbA1c (Bld) [Mass fraction] 8.6 % [employer] Other HbA1c (Bld) [Mass fraction]o n 06-26-2022 A1C HEMOGLOBIN [employer] Other A1C HEMOGLOBINon 03-02-2022 HbA1c (Bld) [Mass fraction] 9.0 % [employer] Other HbA1c (Bld) [Mass fraction]o n 03-02-2022 A1C HEMOGLOBIN [employer] Other Progress Note-Physicianon Protein mass conc Patient: [...] insulin dependent (IDDM), controlled / SNOMED CT 569542714 / ConfirmedAsthma / SNOMED CT 689909480 / ConfirmedLocalized osteoarthritis of knee / SNOMED CT 643158877 / Confirmed Physical Examination Intake and Output Denies significant n/v and is tolerating p.o. No qualifying data available Respiratory: Adequate air exchange with yazidi of preoperative function.. Cardiovascular: Cardiovascular function is stable and has returned to preoperative levels.. Neurologic: Pt has returned to preoperative baseline.. Review / Management Condition: Stable. Assessment Anesthetic outcome No anesthetic complications noted. Plan Transfer/ Discharge: Patient can be discharged from PACU when criteria met. Condition good. Normal [facility] Comment on above: Result Comment: Elec [...] insulin dependent (IDDM), controlled / SNOMED CT 573431641 / ConfirmedAsthma / SNOMED CT 720976095 / ConfirmedLocalized osteoarthritis of knee / SNOMED CT 584571367 / Confirmed Physical Examination Intake and Output [...] report . Respiratory: Adequate air exchange with yazidi of preoperative function.. Cardiovascular: Cardiovascular function is stable and has returned to preoperative levels.. Neurologic: Pt has returned to preoperative baseline.. Review / Management Condition: Stable. Assessment Anesthetic outcome No anesthetic complications noted. Plan Transfer/ Discharge: Patient can be discharged from PACU when criteria met. Condition good. Normal [facility] Coding Summary.on 07-16-2018 Coding Summary. CODING DATE: FINAL [facility] STATUS: Home w/ Home Health PAYOR: Sulma Grouper: 470 MS-DRG MAJOR HIP AND KNEE JOINT REPLACEMENT OR REATTACHMENT OF LOWER EXTREMITY W/O CUSTODIAL Low Trim 0 High Trim 999 302 [...] single episode, unspecified PROCEDURES DOCTOR NAME DATE [id number] Replacement of Right Knee Joint Abrahan Pruett DO 07/12/2018 with Synthetic Substitute, Cemented, Open Approach [id number] Introduction of Anesthetic Yoni Noland JR, DO 07/12/2018 Agent into Peripheral Nerves and Plexi, Percutaneous Approach NOTE: The code number assigned matches the documented diagnosis and / or procedure in the patient's chart. However, the narrative phrase printed from the coding software may appear abbreviated, or result in slightly different terminology. Coded By: Radha Ch Date Saved: 07/16/2018 08:23 am Normal [facility] Coding Summary.on 07-15-2018 Coding Summary. CODING DATE: FINAL [facility] STATUS: PAYOR: Sulma ADMIT DX: REASON FOR [...] CphT Date Saved: 07/15/2018 01:38 pm Normal [facility] Main [place] Intraoperative Recor don 07-15-2018 Main OR Intraoperative Record IntraOp Document Type FT Summary Primary Physician: Abrahan Pruett DO Finalized Date/Time: 07/15/18 14:25:27 Pt. Name: MAVIS PICKARD Evelia Delcid./Sex: 1960 Female Med Rec #: [id number] Physician: Abrahan Pruett DO Financial #: [id number] Pt. Type: I Room/Bed: N316/01 Admit/Disch: 07/12/18 05:38:00 - 07/13/18 15:35:00 Institution: Case Times FT Entry 1 Patient Times In Room 07/12/18 07:44:00 Out Room 07/12/18 10:08:00 Procedure Times Start 07/12/18 08:19:00 Stop 07/12/18 10:05:00 Anesthesia Times Start 07/12/18 07:44:00 Stop 07/12/18 10:08:00 Block Timeout w/ 07/12/18 07:08:00 Anesthesia Last Modified By: Kelley Boggs CST 07/12/18 10:08:14 General Comments: [id number] - patient taken to block room hooked [...] Attendee Naz Alfred DO, Steven Rivera RN, [facility] Performed Anesthesiologist Surgeon - Primary ENERGY RATER Sales Negotiator Time In 07/12/18 07:44:00 07/12/18 08:02:00 07/12/18 [...] Harrington RN, Geovanna Montes CST Role Performed Converter Operator - Primary Converter Operator - Primary Scrub - Primary Time In 07/12/18 07:50:00 07/12/18 07:44:00 07/12/18 07:44:00 Time Out 07/12/18 10:08:00 07/12/18 09:44:00 07/12/18 09:44:00 Procedure KNEE TOTAL KNEE TOTAL KNEE TOTAL ARTHROPLASTY(Right) ARTHROPLASTY(Right) ARTHROPLASTY(Right) Comments Last Modified By: Nahum RN, [place] 07/12/18 Nahum RN, [place] 07/12/18 Nahum RN, [place] 07/12/18 10:11:04 10:11:04 10:11:04 Entry 7 Entry 8 Case Attendee Jean NEEDLE CONTROL CHENILLER, Meseret Mendiola RN, CNOR, CRNFA, ONC, Kristina Role Performed Scrub - Other Staff - Other Time In 07/12/18 07:46:00 07/12/18 07:44:00 Time Out 07/12/18 10:08:00 07/12/18 08:10:00 Procedure KNEE TOTAL KNEE TOTAL ARTHROPLASTY(Right) ARTHROPLASTY(Right) Comments OUTSIDE SECURITY ORDERLY Last Modified By: Nahum RN, [place] 07/12/18 Nahum RN, [place] 07/12/18 10:11:04 10:11:04 General Comments: CELESTINO CHOI REP PRESENT FOR PROCEDURE. Stacie ANGEL RNelectrical engineer mep Protocols FT Pre-Care Text: Implements protective measures [...] RN, Coy RN, Emily A, ONCKristina Churchill [place] NEEDLE CONTROL CHENILLER, Geovanna E [place] NEEDLE CONTROL CHENILLER, Geovanna E NEEDLE CONTROL CHENILLER, Geovanna E Outcomes Met? Yes Yes Yes [...] to transfer/transport General Comments: REPORT GIVEN TO ACCOUNT GROUP SUPERVISOREdu ANGEL RN Dressing/Packing FT Pre-Care Text: Administers [...] safely administered during the perioperative period For [facility] please see scanned medication reconcilliation form for medications used at the field during the procedure. Tourniquet FT Pre-Care Text: Implements protective measures to prevent skin/tissue injury due to mechanical sources Entry 1 Tourniquet Type TOURNIQUET CUFF PURPLE Setting 375 mmHg 34 X 4 [9447-639-626][F] Equipment Number C Placement Right Upper Thigh [...] [6197-9-001][F] BONE [6197-9-001][F] Serial Number Lot Number [id number] [employer]iller [facility] H[facility]ITALImage Metrics -HOWHadron SystemsCA JIMBO Catalog ?# 6197-9-010 [F] 6197-9-010 [F] [...] BASEPLATE Serial Number Lot Number [id number] Rod Filler JIM[employer] JIMBO Catalog ?# [id number] 5520-B-500 Size [...] Present Upon Arrival No Inserted LF 16FR [[id number]][F] Insertion Date/Time 07/12/18 08:02:00 Urine Residual 110 [...] BLANKET MISTRAL AIR Quantity 1 Aid TORSO [[id number]][F] Fluid/[place] Mistral warming system Setting HIGH/43 Body Site Upper anterior torso Last Modified By: Latrice Harrington RN 07/12/18 08:35:52 Case Comments Finalized By: Kelley Boggs CST Document Signatures Signed By: [place] Sidhu RN 07/12/18 10:11 Kelley Boggs CST 07/15/18 14:25 Normal [facility] Sodiumon 07-15-2018 Sodium molar conc 134 mmol/L Low 135-145 [facility] Comment on above: Performed By: #### 1 [id number], [id number], [id number], [id number], [id number], [id number], [id number] ####[facility] [id number] [place] [address] Inpatient Clinical Summaryon 07-14-2018 Inpatient Clinical Summary [address] [address] Clinical Summary Person Information:Name: MAVIS PICKARD Age: 58 Years : 1960 12:00 AM Sex: Female PCP: RASHAD TERAN DO Marital Status: Race:White Ethnicity:Non- or Language:Yi Visit Id: Visit Reason:RIGHT KNEE OA Speciality: Acuity: Enc Type: Inpatient Med Service: Surgery Arrival:07/12/2018 5:38 AM Discharge: 07/13/2018 3:35 PM Dispo Type: Home w/ Home Health Address:[address] [place] [phone] Provider Notes: Diagnosis:1:Knee osteoarthritis; 2:Anemia; 3:Hyponatremia; 4:Asthma; [...] DO Follow up:With: Address: When: Abrahan Pruett [place] [phone] Business (1) 08/07/2018 2:00 PM With: Address: When: RASHAD TERAN [address] [place], [place] [phone] Business (1) Patient Education Information: Osteoarthritis; Hyponatremia, Tdqt-ru-Noip; Shine - Post Op Total Knee Arthroplasty (Revised 2016) (CUSTOM)Percocet 325 mg-5 mg Tab Normal [facility] Inpatient Patient Summaryon 07-14-2018 Inpatient Patient Summary [place] [id number] Patient Discharge Instructions PERSON INFORMATION Name: MAVIS PICKARD Date of : 1960 12:00 AM Current Date: 07/14/18 09:43:55 PHYSICIANS Admitting Phys[facility] Comment: Discharge Diagnosis: 1:Knee osteoarthritis; 2:Anemia; [...] results: NoneFollow up:With: Address: When: Abrahan Pruett [address] [address] Business (1) 08/07/2018 2:00 PM With: Address: When: RASHAD TERAN [address] [place] [id number] Business (1) In the event that this physician does not participate in your insurance network, please consult with your insurance company to find a nearby participating provider. Comment: NEERAJ Crowe CYNTHIA S, have received the attached patient education materials/instructions and have verbalized understanding:Patient Signature __ Date Clinican/Nu rse Signature Date HERE ARE THE MEDICATION CHANGES THAT OCCURRED DURING YOUR HOSPITAL STAY [facility]ations[id number] [address] [facility] [address] [place], [place] [id number], [phone]-oxycodon e (Percocet 325 mg-5 mg Tab) 1 [...] aerobics, that get your heart pumping. ? Hemsf-pw-exnley activities. These keep your joints limber.? Balance [...] have night sweats. FOR MORE INFORMATION? National [place] of Arthritis and Musculoskeletal and Skin Diseases: www.niams.nih.gov? National [place] on Aging: www.anahi.nih.gov? [place] [employer]: www.rheumatology.org Document Released: 07/16/2006 Document Revised: 11/30/2014 Document Reviewed: 2014ExitCare? Patient Information ?2015 Must See [place]. This information is not intended to replace [...] 10/07/2012 Document Reviewed: 03/27/2012ExitCare? Patient Information ?2015 Must See [place]. This information is not intended to replace advice given to you by your health care provider. 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 [...] may report side effects to FDA at 8-735-CXL-3371.What other drugs will affect acetaminophen and oxycodone?Narcotic [...] with acetaminophen and oxycodone, including prescription and vxuu-uqs-ygsqsbt medicines, vitamins, and herbal products. Not all [...] to ensure that the information provided by [employer]. ('[employer]') is accurate, up-to-date, and complete, but no guarantee is made to that effect. Drug information contained herein may be time sensitive. [employer] information has been compiled for use by healthcare practitioners and consumers in the [place] and therefore [employer] does not warrant that uses outside of the [place] are appropriate, unless specifically indicated otherwise. [employer]'s drug information does not endorse drugs, diagnose patients or recommend therapy. [employer] drug information is an informational resource designed [...] effective or appropriate for any given patient. [facility] does not assume any responsibility for any aspect of healthcare administered with the aid of information [facility] provides. The information contained herein is not intended to cover all possible uses, directions, precautions, warnings, drug interactions, allergic reactions, or adverse effects. If you have questions about the drugs you are taking, check with your doctor, nurse or pharmacist. Copyright 0847-8992 [employer]. Version: 16.01. Revision Date: 07/10/2017. Thank you for choosing [facility] Normal [facility] Auto Diffon 07-13-2018 Basophils Auto #/vol (Bld) 0.3 % Normal 0.0-2.0 [facility] Comment on above: Order Comment: Order Added by Discern Expert. Performed By: #### 1 7907328, 8811005, 4960963, 4178389, 672110082, 3822887, 0783881 ####[facility] [address] [place] [address] Basophils/Leukocytes Auto Pure number fraction (Bld) 0.0 E9/L Normal 0.0-0.2 [facility] Comment on above: Order Comment: Order Added by Discern Expert. Performed By: #### 1 6588748, 2014222, 8668980, 7925302, 688927220, 6252323, 6899678 ####[address] [place] [address] Eosinophils/100 WBC Auto (Bld) 0.7 % Normal 0.0-8.0 [facility] Comment on above: Order Comment: Order Added by Discern Expert. Performed By: #### 1 3457029, 2496027, 5161903, 0291825, 095768348, 3946905, 8505850 ####[address] [place] [address] Eosinophils/Leukocyte s Auto Pure number fraction (Bld) 0.1 E9/L Normal 0.0-0.5 [facility] Comment on above: Order Comment: Order Added by Discern Expert. Performed By: #### 1 4514135, 1392875, 2481650, 1907274, 639937816, 9408820, 2143261 ####[address] [place] [address] Lymphocytes/100 WBC Auto (Bld) 14.2 % Normal 14.0-50.0 [facility] Comment on above: Order Comment: Order Added by Discern Expert. Performed By: #### 1 8326335, 7954478, 7026696, 3390354, 122026853, 6038829, 9700921 ####[address] [address] Lymphocytes/Leukocyte s Auto Pure number fraction (Bld) 1.4 E9/L Normal 1.0-4.0 [facility] Comment on above: Order Comment: Order Added by Discern Expert. Performed By: #### 1 1038030, 1481809, 5930753, 0363085, 317337438, 0726147, 7044093 ####[address] [place] [address] Monocytes/100 WBC Auto (Bld) 12.3 % Normal 4.0-14.0 [facility] Comment on above: Order Comment: Order Added by Discern Expert. Performed By: #### 1 7123590, 5786781, 4168550, 7894891, 564502575, 0166202, 9050269 ####[facility] [address] [place] [address] Monocytes/Leukocytes Auto Pure number fraction (Bld) 1.2 E9/L High 0.2-1.0 [facility] Comment on above: Order Comment: Order Added by Discern Expert. Performed By: #### 1 5507498, 9725103, 0952600, 4959496, 041453986, 5447420, 1847342 ####[address] [place] [address] Neutrophils/100 WBC Auto (Bld) 72.5 % Normal 36.0-75.0 [facility] Comment on above: Order Comment: Order Added by Discern Expert. Performed By: #### 1 3582594, 4651952, 6660281, 5817050, 188244477, 8602044, 1518223 ####[address] [place] [address] Neutrophils/Leukocyte s Auto Pure number fraction (Bld) 7.3 E9/L Normal 2.0-7.5 [facility] Comment on above: Order Comment: Order Added by Discern Expert. Performed By: #### 1 4278228, 8997998, 4627471, 0979607, 006529131, 6506643, 4784102 ####[address] [place] [address] BUNon 07-13-2018 Urea nitrogen mass conc 14 mg/dL Normal 5-21 [facility] Comment on above: Performed By: #### 1 9701665, 8613085, 2454894, 8624114, 570954138, 3888366, 7418027 ####[address] [place] [address] CBC w/ Auto Diffon 8 Erythrocyte distribution width Auto Ratio (RBC) 14.2 % Normal 10.9-14.2 [facility] Comment on above: Performed By: #### 1 0790065, 4722404, 9662623, 1680791, 892646157, 4181631, 0394863 ####[facility] [address] [place] [address] Hematocrit Auto Volume Fraction (Bld) 33.8 % Low 34.0-46.[address] [facility] Comment on above: Performed By: #### 1 3978652, 7674428, 5529250, 8396623, 006990577, 5598799, 6678897 ####[facility] [address] [place] [address] Hemoglobin mass conc (Bld) 11.5 g/dL Low 12.0-16.0 [facility] Comment on above: Performed By: #### 1 4410444, 7727061, 1529196, 0616542, 279140746, 7419055, 9847499 ####[place] [address] MCH Auto Entitic mass (RBC) 28.4 pg Normal 27.0-34.0 [facility] Comment on above: Performed By: #### 1 6073363, 7656507, 3168283, 4693564, 499933795, 2676276, 5754142 ####[address] MCHC Auto mass conc (RBC) 34.0 g/dL Normal 31.4-39.3 [facility] Comment on above: Performed By: #### 1 1334349, 7370021, 9774473, 6289366, 452956358, 6595250, 9544612 ####[facility] [address] [place] [address] MCV Auto Entitic volume (RBC) 83.3 fL Normal 80.0-100.0 [facility] Comment on above: Performed By: #### 1 8421345, 3419623, 8232398, 1210250, 638414343, 7565332, 0875770 ####[address] [place] [address] Platelet mean volume Auto Entitic volume (Bld) 8.6 fL Normal 6.4-10.8 [facility] Comment on above: Performed By: #### 1 7062491, 1441237, 5556175, 0953909, 855349617, 4574541, 6045163 ####[facility] [address] [place] [address] Platelets Auto #/vol (Bld) 260.0 E9/L Normal 150.0-500. 0 [facility] Comment on above: Performed By: #### 1 8986789, 6976928, 3183536, 0768697, 266981012, 7435147, 8322352 ####[facility] [address] [place] [address] RBC Auto #/vol (Bld) 4.0 E12/L Low 4.3-5.9 [facility] Comment on above: Performed By: #### 1 6996226, 6550518, 7408484, 2952909, 777520553, 7239359, 7930979 ####[facility] [address] [place] [address] WBC corrected for nucl RBC Auto #/vol (Bld) 10.1 E9/L Normal 4.0-11.0 [facility] Comment on above: Performed By: #### 1 1861778, 8043324, 8423560, 5512369, 241942999, 2112813, 8104733 ####[facility] [address] [place] [address] Creatinineon 07-13-2018 Creatinine mass conc 0.8 mg/dL Normal 0.5-1.3 [facility] Comment on above: Performed By: #### 1 5727379, 4322452, 9762919, 9504719, 377088382, 3355323, 6086104 ####[facility] [address] [place] [address] Interdisciplinary Note - Hubert e Manageron 07-13-2018 Interdisciplinary Note - Research Spec Pt is awake and alert in involved in plan of care. PCP verified, and insurance information verified. DME discussed.Contact information provided and white board updated. Family present at this time, Pt previously rounded with Trupti RAM and DR. Pruett. pt is aware of anticiapted DC home today. Pt is set up with [facility] for [facility]. Dneies any further DC needs or concerns. Normal [facility] Interdisciplinary Note - Leann n 07-13-2018 [...] OT is planned, pt is participating in [id number] program and will have PT at home per program. Normal [facility] Lyteson 07-13-2018 Anion gap 3 molar conc 11 mmol/L Normal 6-16 [facility] Comment on above: Performed By: #### 1 4148015, 9299847, 6999842, 6526931, 346805042, 3018914, 5296587 ####[facility] [address] [place] [address] Chloride molar conc 95 mmol/L Low 101-111 [facility] Comment on above: Performed By: #### 1 7636360, 7566069, 4857016, 2458847, 241059945, 6922140, 5285674 ####[facility] [address] [place] [address] CO2 molar conc 29 mmol/L Normal 21-[address] [facility] Comment on above: Performed By: #### 1 3706716, 9838352, 6576294, 2414330, 659383315, 2500584, 6028506 ####[facility] [address] [place] [address] Potassium molar conc 4.0 mmol/L Normal 3.5-5.3 [facility] Comment on above: Performed By: #### 1 4035419, 0315496, 4560043, 7670514, 826683780, 8794733, 4338592 ####[facility] [address] [place] [address] Sodium molar conc 131 mmol/L Low 135-145 [facility] Comment on above: Performed By: #### 1 5988900, 4198982, 0108285, 5247777, 203902987, 8518688, 3843397 ####[facility] [address] [place] [address] Operative Reporton 8 Operative Report Date of [...] multiple injections and joint fluid therapy. X-raysdemonstrate mcjc-es-dcfb medial joint space loss. Please refer to theadmitting History and Physical for further details.COMPONENTS: [place] [employer] size 5 femur, size 5 tibia, [...] postoperative x-rays are satisfactory.Abrahan Pruett D.O.glsDictated: 07/12/2018 #[id number]: 07/13/2018 #[id number]: Abrahan Pruett D.O. [facility] Comment on above: Result Comment: Elec tronically [...] made to ensure accuracy, however, inadvertently computerized nps mistakes may be present.Subjective Patient states that [...] Lymph Auto: 14.2 % (07/13/18 05:29:00 EST) [place] Auto: 12.3 % (07/13/18 05:29:00 EST) Eos Auto: 0.7 % (07/13/18 05:29:00 EST) Basophil Auto: 0.3 % (07/13/18 05:29:00 EST) Neutro Absolute: 7.3 E9/L (07/13/18 05:29:00 EST) Lymph Absolute: 1.4 E9/L (07/13/18 05:29:00 EST) [place] Absolute: 1.2 E9/L High (07/13/18 05:29:00 EST) [...] High (07/13/18 08:03:00 EST) POC Device SN: [id number] (07/13/18 08:03:00 EST) POC Username: GALDINO SONI [...] 8% Susp-Oral, 30 mL, Oral, BID, PRN [place] 5/325 Tab, 2 tab(s), Oral, q4hr, PRN [place] 5/325 Tab, 1 tab(s), Oral, q4hr, PRN [...] MDI, 2 puff(s), Inhalation, QID, PRN Normal [facility] Comment on above: Result Comment: Elec tronically Signed By: Trupti SCHMIDT\.br\Date and Time Signed: 07/13/18 10:54 EST\.br\Electronically Co-Signed By: Suzy LEO MD\.br\Date and Time Co-Signed: 07/13/18 11:23 EST eGFRon 07-13-2018 GFR/1.73 sq M predicted among blacks MDRD vol rate/area (S/P/Bld) mL/min/{1.73_m2} Normal >=59 [facility] Comment on above: Order Comment: Order added by Discern Expert. Result Comment: eGFR is race adjusted. AA=. Performed By: #### 1 9230746, 1393860, 5795571, 5068057, 587392780, 7243126, 2796650 ####[facility] [address] [place] [address] GFR/1.73 sq M predicted among non-blacks MDRD vol rate/area (S/P/Bld) mL/min/{1.73_m2} Normal >=59 [facility] Comment on above: Order Comment: Order added by Discern Expert. Result Comment: Gut Sorter elin kidney disease could be indicated at eGFR's of less than 60 mL/min/1.73m2. Kidney failure is indicated at less than 15 mL/min/1.73m2. Performed By: #### 1 4719031, 1529919, 2375671, 2453781, 848020956, 9441646, 7801858 ####[facility] [address] [place] [address] ABO/Rhon 07-12-2018 ABO/Rh Positive Invalid Interpretation Code [facility] Comment on above: Performed By: #### 1 4061042, 0031378, 34358384, 96977342 ####[facility] [address] [place] [address] ABO/Rh History Checkon 07-12 ABO/Rh History Check Verified Hx Blood Type Normal [facility] Comment on above: Performed By: #### 1 8945126, 6514460, 83574596, 16157913 ####[facility] [address] [place] [address] ABSCon 07-12-2018 ABSC Gel Interp Negative Normal [facility] Comment on above: Performed By: #### 1 1851748, 2354490, 05058906, 45526717 ####[facility] [address] [place] [address] Blood Bank ID#on 07-12-2018 BBID# [id number] Invalid Interpretation Code [facility] Comment on above: Performed By: #### 1 3374565, 9163834, 76311404, 32094941 ####[facility] [address] [place] [address] Consultation Noteon 07-12-20 Consultation Note Chief Complaint [...] made to ensure accuracy, however, inadvertently computerized nps mistakes may be present.Attestation Case reviewed and [...] 8% Susp-Oral, 30 mL, Oral, BID, PRN [place] 5/325 Tab, 2 tab(s), Oral, q4hr, PRN [place] 5/325 Tab, 1 tab(s), Oral, q4hr, PRN [...] High (07/12/18 11:53:00 EST) POC Device SN: [id number] (07/12/18 11:53:00 EST) POC Username: POC Username [...] recent placement. Signed By: Issa Agudelo MD [facility] Comment on above: Result Comment: Elec tronically [...] not cover 360 program and will need [facility] at discharge. Pt is agreeable with this. Verified PCP and insurance, discussed INPT status. Pt denies any questions or concerns about dc plans. Whiteboard updated. Normal [facility] Interdisciplinary Note - PTo n 07-12-2018 Interdisciplinary Note - PT PT Evaluation completed with an AM PAC score of 17/24. Pt performing bed mobility with SBA and transfers with CGA. Pt was able to ambulate 65 feet with FWW with CGA. Will follow daily. Please see PT treatment note for further recommendations Normal [facility] Main OR PACU I Recordon 06-29 Main OR PACU I Record PACU Phase I Docum ent Type FT Summary Primary Physician: Abrahan Pruett DO Finalized Date/Time: 07/12/18 12:16:59 Pt. Name: MAVIS PICKARD Evelia Delcid./Sex: 1960 Female Med Rec #: [id number] Physician: Abrahan Pruett DO Financial #: [id number] Pt. Type: I Room/Bed: N316/01 Admit/Disch: 07/12/18 [...] By: Clementina Wilks RN 07/12/18 12:16 Normal [facility] Main OR Preoperative Recordo n 07-12-2018 Main OR Preoperative Record PreOp Document Type FT Summary Primary Physician: Abrahan Pruett DO Finalized Date/Time: 07/12/18 08:26:12 Pt. Name: MAVIS PICKARD/Sex: 1960 Female Med Rec #: [id number] Physician: Abrahan Pruett DO Financial #: [id number] Pt. Type: A Room/Bed: [place] [address] Admit/Disch: 07/12/18 05:38:12 - Institution: Case Times [...] By: Latrice Harrington RN 07/12/18 08:26 Normal [facility] Operative Reporton 8 Operative Report Date of Surgery: 07/12/2018SURGEON: Yoni Nloand Jr., TaviaPREOPERATIVE DIAGNOSIS: Postoperative pain control requested [...] the proposed procedure.Yoni Noland Jr., TaviaglsDictated: 07/12/2018 #[id number]: 07/12/2018 #[id number]: Yoni Noland Jr., D.O. 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 It is therefore advised not to drive until after your first office visit following surgeryFOLLOW-UP OFFICE VISIT: Alina Pruett D.O.Revised: 2010 [facility] Progress Note-Physicianon Protein mass conc Patient: ELEANOR [...] [F] 0.4 mg 0.2 mL, IV Push, r3qlghoveuciwlwun 25 mg/mL Inj [F] 12.5 mg 0.5 mL, IV Push, q2min Problem list: All ProblemsDiabetes mellitus, insulin dependent (IDDM), controlled / SNOMED CT 690021395 / ConfirmedAsthma / SNOMED CT 581603575 / ConfirmedLocalized osteoarthritis of knee / SNOMED CT 773992073 / Confirmed, Active Problems (3)Asthma Diabetes mellitus, insulin dependent (IDDM), controlled Localized osteoarthritis of knee Histories Past Medical History: No active or resolved past medical history items have been selected or recorded. Family History: HypothyroidismSisterPrimar y malignant neoplasm of lungMotherPrimary malignant neoplasm of female genital organMotherDiabetes mellitus type 2Father Procedure history: Endometrial ablation (436909835).achilles tendon lengthening, left. Social History Social & Psychosocial ZlhrvwUctdmum74/03/2018 Risk Assessment: Low RiskSubstance Abuse07/01/2018 Risk Assessment: Denies Substance HjpgiHgelnss53/03/2018 Risk Assessment: Denies Tobacco Use. Physical Examination [...] Results review: No qualifying data available. Plan [place] [employer] Anesthesiologists (ASA) physical status classification: Class III. Anesthetic Preoperative Plan Anesthesia: Regional (Spinal, ADDUCTOR CANAL BLOCK). Anesthetic plan, risks, benefits, and alternatives discussed with the patient and/or family. Pt. and/or family present and agree to proceed as planned.. Discussed the importance of abstaining from tobacco products, and offered counseling if pt. desired.. Normal [facility] Comment on above: Result Comment: Elec tronically Signed By: Ligia DUKE DO, Yoni Grimm.kevan\Date and Time Signed: 07/12/18 08:54 EST UA With Cult Reflexon 2017 Bilirubin Ql (U) Negative Normal Negative [facility] Comment on above: Performed By: #### 1 2217031 ####[facility] [address] [place] [address] Clarity Nom (U) CLEAR Normal Clear [facility] Comment on above: Performed By: #### 1 1617292 ####[facility] [address] [place] [address] Color Auto Nom (U) YELLOW Normal Yellow [facility] Comment on above: Performed By: #### 1 3356715 ####[facility] [address] [facility] [place] [address] Epithelial cells.squamous LM.HPF #/area (Urine sed) 0-2 Normal 0-2 [facility] Comment on above: Performed By: #### 1 7413674 ####[facility] [address] [place] [address] Glucose Test strip mass conc (U) Negative Normal Negative [facility] Comment on above: Performed By: #### 1 0726742 ####[facility] [address] [place] [address] Hemoglobin Test strip Ql (U) Negative Normal Negative [facility] Comment on above: Performed By: #### 1 9690160 ####[facility] [address] [place] [address] Ketones mass conc (U) Negative Normal Negative Fis [facility] Comment on above: Performed By: #### 1 0754690 ####[facility] [address] [place] [address] [place].plasma/Lithiu m.RBC mass ratio (Bld) 0-3 Normal 0-3 [facility] Comment on above: Performed By: #### 1 3704552 ####[facility] [address] [place] [address] Mucus LM Ql (Urine sed) TRACE Normal [facility] Comment on above: Performed By: #### 1 8399036 ####[address] [address] Nitrite Test strip Ql (U) Negative Normal Negative [facility] Comment on above: Performed By: #### 1 5920377 ####[address] [address] pH Test strip (U) 5.5 [pH] Invalid Interpretation Code 5.0-9.0 [facility] Comment on above: Performed By: #### 1 1989654 ####[address] [address] Protein mass conc (U) Negative Normal Negative [facility] Comment on above: Performed By: #### 1 0697527 ####[address] [address] Specific gravity Relative Density (U) >=1.030 Invalid Interpretation Code 1.005-1.03 0 [facility] Comment on above: Performed By: #### 1 9873632 ####[address] [address] UA Spec Desc Salguero Normal [facility] Comment on above: Performed By: #### 1 0032191 ####[address] [address] Urobilinogen Test strip Qn (U) 0.2 {Brittany'U}/dL Normal 0.0-1.0 [facility] Comment on above: Performed By: #### 1 3038303 ####[address] [address] WBC Auto Ql (U) Negative Normal Negative [facility] Comment on above: Performed By: #### 1 0525804 ####[address] [address] WBC LM.HPF #/area (Urine sed) 0-5 Normal 0-5 [facility] Comment on above: Performed By: #### 1 0791744 ####[facility] [address] [place] [address] XR Knee 1 or 2 Views Righton [...] MD Transcribed by: DENNY Technologist: MARAL Diaz [facility] Coding Summary.on 07-03-2018 Coding Summary. CODING DATE: FINAL [facility] STATUS: Home (Routine DC) PAYOR: Sulma APC [...] Nesbitt CphT Date Saved: 07/02/2018 09:07 am [facility] Coding Summary. CODING DATE: FINAL [facility] STATUS: Home (Routine DC) PAYOR: Sulma APC [...] CphT Date Saved: 07/02/2018 09:07 am Normal [facility] ABO/Rhon 07-02-2018 ABO/Rh Positive Invalid Interpretation Code [facility] Comment on above: Performed By: #### 2 973426 ####[facility] [address] [place] [address] BUNon 07-02-2018 Urea nitrogen mass conc 12 mg/dL Normal 5-21 [facility] Comment on above: Performed By: #### 1 3167921, 7455199, 6378925, 7192591, 329143865, 4504377, 4860708 ####[facility] [address] [place] [address] CBC w/Indiceson 07-02-2018 Erythrocyte distribution width Auto Ratio (RBC) 14.2 % Normal 10.9-14.2 [facility] Comment on above: Performed By: #### 1 5988637, 6323339, 4940483, 7145581, 100651127, 8295792, 1368242 ####[facility] [address] [place] [address] Hematocrit Auto Volume Fraction (Bld) 38.7 % Normal 34.0-46.[address] [facility] Comment on above: Performed By: #### 1 1446972, 1840428, 2280954, 1064103, 690087882, 7695242, 8884272 ####[facility] [address] [place] [address] Hemoglobin mass conc (Bld) 13.0 g/dL Normal 12.0-16.0 [facility] Comment on above: Performed By: #### 1 9132670, 6213941, 8227655, 2205060, 789612516, 4371652, 9684953 ####[facility] [address] [place] [address] MCH Auto Entitic mass (RBC) 27.8 pg Normal 27.0-34.0 [facility] Comment on above: Performed By: #### 1 6457567, 3792242, 3898819, 9888144, 744077427, 2314022, 2312963 ####[address] [place] [address] MCHC Auto mass conc (RBC) 33.5 g/dL Normal 31.4-39.3 [facility] Comment on above: Performed By: #### 1 8006860, 8025772, 4377746, 2227095, 324104939, 8745237, 3457814 ####[place] [address] MCV Auto Entitic volume (RBC) 83.0 fL Normal 80.0-100.0 [facility] Comment on above: Performed By: #### 1 8864808, 7071177, 1082818, 1963846, 970885273, 4999563, 6825566 ####[place] [address] Platelet mean volume Auto Entitic volume (Bld) 9.1 fL Normal 6.4-10.8 [facility] Comment on above: Performed By: #### 1 [id number], 6033100, 9794287, 3293366, [id number], 1920438, 5476606 ####[place] [id number] Platelets Auto #/vol (Bld) 282.0 E9/L Normal 150.0-500. 0 [facility] Comment on above: Performed By: #### 1 [id number], 9355535, 3503079, 3779159, 049129673, 1922462, 5727991 ####[address] [address] RBC Auto #/vol (Bld) 4.7 E12/L Normal 4.3-5.9 [facility] Comment on above: Performed By: #### 1 7800085, 9476724, 5805307, 9063672, 780759431, 3066707, 8067950 ####[facility] [address] [place] [address] WBC corrected for nucl RBC Auto #/vol (Bld) 8.0 E9/L Normal 4.0-11.0 [facility] Comment on above: Performed By: #### 1 1139877, 9798287, 5470257, 8782964, 058673595, 9958921, 6156996 ####[facility] [address] [place] [address] Creatinineon 07-02-2018 Creatinine mass conc 0.7 mg/dL Normal 0.5-1.3 [facility] Comment on above: Performed By: #### 1 4893772, 3876979, 7600140, 3443247, 166527205, 4885321, 9597626 ####[facility] [address] [place] [address] Glu Fastingon 07-02-2018 Glucose mass conc 163 mg/dL High 55-99 [facility] Comment on above: Performed By: #### 1 0261997, 1603287, 8070742, 9144754, 343381613, 2659706, 6075696 ####[facility] [address] [place] [address] SteM7mku 07-02-2018 Hemoglobin A1c/Hemoglobin.total Calculated mass fraction (Bld) 9.3 % High <=5.9 [facility] Comment on above: Performed By: #### 1 8404144, 2961587, 1064061, 9195268, 120129464, 4202876, 1219874 ####[facility] [address] [place] [address] Lyteson 07-02-2018 Anion gap 3 molar conc 11 mmol/L Normal 6-16 [facility] Comment on above: Performed By: #### 1 9815140, 5966533, 9251546, 2777217, 713458965, 2933275, 4036864 ####[facility] [address] [place] [address] Chloride molar conc 99 mmol/L Low 101-111 [facility] Comment on above: Performed By: #### 1 4242587, 2630850, 2037172, 9886187, 512824906, 5739002, 5096380 ####[facility] [address] [place] [address] CO2 molar conc 28 mmol/L Normal 21-[address] [facility] Comment on above: Performed By: #### 1 3124105, 2922948, 9076777, 2994439, 613664050, 9921017, 2399716 ####[facility] [address] [place] [address] Potassium molar conc 4.0 mmol/L Normal 3.5-5.3 [facility] Comment on above: Performed By: #### 1 0377327, 5667876, 5653468, 8216667, 332447658, 5958447, 1913457 ####[facility] [address] [place] [address] Sodium molar conc 134 mmol/L Low 135-145 [facility] Comment on above: Performed By: #### 1 3654792, 9416801, 9771883, 6724581, 840787531, 7776921, 7305842 ####[facility] [address] [place] [address] UA With Cult Reflexon 2017 Bilirubin Ql (U) Negative Normal Negative [facility] Comment on above: Performed By: #### 1 4668850 ####[facility] [address] [place] [address] Clarity Nom (U) CLEAR Normal Clear [facility] Comment on above: Performed By: #### 1 1497270 ####[facility] [address] [place] [address] Color Auto Nom (U) YELLOW Normal Yellow [facility] Comment on above: Performed By: #### 1 2685821 ####[facility] [address] [place] [address] Epithelial cells.squamous LM.HPF #/area (Urine sed) 0-2 Normal 0-2 [facility] Comment on above: Performed By: #### 1 1651433 ####[facility] [address] [place] [address] Glucose Test strip mass conc (U) Negative Normal Negative [facility] Comment on above: Performed By: #### 1 3916347 ####[facility] [address] [place] [address] Hemoglobin Test strip Ql (U) Negative Normal Negative [facility] Comment on above: Performed By: #### 1 3401082 ####[address] [address] Ketones mass conc (U) Negative Normal Negative [facility] Comment on above: Performed By: #### 1 5193564 ####[address] [address] Hoback.plasma/Lithiu m.RBC mass ratio (Bld) 0-3 Normal 0-3 [facility] Comment on above: Performed By: #### 1 5916082 ####[facility] [address] [place] [address] Mucus LM Ql (Urine sed) TRACE Normal [facility] Comment on above: Performed By: #### 1 6061114 ####[facility] [address] [place] [address] Nitrite Test strip Ql (U) Negative Normal Negative [facility] Comment on above: Performed By: #### 1 8802388 ####[facility] [address] [place] [address] pH Test strip (U) 7.0 [pH] Invalid Interpretation Code 5.0-9.0 [facility] Comment on above: Performed By: #### 1 7373224 ####[facility] [address] [place] [address] Protein mass conc (U) Negative Normal Negative [facility] Comment on above: Performed By: #### 1 7255987 ####[facility] [address] [place] [address] Specific gravity Relative Density (U) 1.020 Invalid Interpretation Code 1.005-1.03 0 [facility] Comment on above: Performed By: #### 1 4939992 ####[facility] [address] [place] [address] UA Spec Desc Clean Catch Normal [facility] Comment on above: Performed By: #### 1 6414744 ####[facility] [address] [place] [address] Urobilinogen Test strip Qn (U) 0.2 {Brittany'U}/dL Normal 0.0-1.0 [facility] Comment on above: Performed By: #### 1 5527691 ####[facility] [address] [place] [address] WBC Auto Ql (U) Negative Normal Negative [facility] Comment on above: Performed By: #### 1 8313970 ####[facility] [address] [place] [address] WBC LM.HPF #/area (Urine sed) 0-5 Normal 0-5 [facility] Comment on above: Performed By: #### 1 0403329 ####[facility] [address] [place] [address] eGFRon 07-02-2018 GFR/1.73 sq M predicted among blacks MDRD vol rate/area (S/P/Bld) mL/min/{1.73_m2} Normal >=59 [facility] Comment on above: Order Comment: Order added by Discern Expert. Result Comment: eGFR is race adjusted. AA=. Performed By: #### 1 7280465, 5996506, 3372746, 0461712, 288986185, 4510469, 4353468 ####[facility] [address] [place] [address] GFR/1.73 sq M predicted among non-blacks MDRD vol rate/area (S/P/Bld) mL/min/{1.73_m2} Normal >=59 [facility] Comment on above: Order Comment: Order added by Discern Expert. Result Comment: Gut Sorter elin kidney disease could be indicated at eGFR's of less than 60 mL/min/1.73m2. Kidney failure is indicated at less than 15 mL/min/1.73m2. Performed By: #### 1 0039624, 0555456, 5393792, 9958670, 064544146, 0052168, 4539035 ####[facility] [address] [place] [address] XR Chest 2 Viewson 8 XR Chest [...] M.D. Transcribed by: shama Technologist: DARBY Normal [facility] POINT OF CARE GLUCOSEon 06-30 Glucose mass conc 127 mg/dL Critically high 74-106 [facility] Comment on above: Performed By: #### P OCGLUC ####[facility] [address] [place] [id number] Anai XR ANKLE LT 2Von 07-27-2017 XR ANKLE LT 2V [address] [place] [address] Patient: MAVIS PICKARD Exam Date: 07/27/2017DOB: 1960 Gender:F : JUSTINA Thorpe GIOTREVA Admission #: [id number] : Order #: [id number] HERE TO VIEW EXAM RADIOLOGY REPORT PROCEDURE: [...] Price M.D. on 07/27/2017 at 14:46 Normal [facility] XR ANKLE LT 2V [address] [place] [address] Patient: MAVIS PICKARD Exam Date: 07/27/2017DOB: 1960 Gender:F : JUSTINA MILLER Admission #: [id number] : Order #: [id number] HERE TO VIEW EXAM RADIOLOGY REPORT PROCEDURE: [...] M.D. on 07/27/2017 at 14:07 Normal [facility] PROF CHEM 8 (BAS METB)on Anion gap 15.6 mmol/L Normal [facility] Comment on above: Performed By: #### B MP ####[facility] [address] BUN/Creatinine Ratio 15.6 mg/mg Normal [facility] Comment on above: Performed By: #### B MP ####[facility] [address] Anai Calcium 9.4 mg/dL Normal 8.4-10.2 [facility] Comment on above: Performed By: #### B MP ####[facility] [address] [place] [id number] Anai Chloride 101 mmol/L Normal 98-107 [facility] Comment on above: Performed By: #### B MP ####[facility] [address] [place] [id number] Anai CO2 30.0 mmol/L Normal 22.0-30.0 [facility] Comment on above: Performed By: #### B MP ####[facility] [address] [place] [address]Gerken Anai Creatinine 0.82 mg/dL Normal 0.52-1.04 [facility] Comment on above: Performed By: #### B MP ####[facility] [address] [place] [id number] Anai eGFR (non-black) mL/min/{1.73_m2} Normal >=60 [facility] Comment on above: Performed By: #### B MP ####[facility] [address] [place] [id number] Anai Glucose mass conc 126 mg/dL Critically high 74-106 [facility] Comment on above: Performed By: #### B MP ####[facility] [address] [place] [address] Anai Potassium molar conc 4.3 mmol/L Normal 3.4-5.0 [facility] Comment on above: Performed By: #### B MP ####[facility] [address] [place] [id number] Anai Sodium 142 mmol/L Normal 137-[address] [facility] Comment on above: Performed By: #### B MP ####[facility] [address] Anai Urea nitrogen 13.0 mg/dL Normal 7.0-17.0 [facility] Comment on above: Performed By: #### B MP ####[facility] [address] [place] [id number] Anai GLYCOHEMOGLOBIN A1Con 2016 Glucose mass conc 229 mg/dL Normal [facility] Comment on above: Performed By: #### A 1C ####[facility] [address] [place], [place] [address]Zujddx Anai Hemoglobin A1c/Hemoglobin.total mass fraction (Bld) 9.6 % Critically high <=6.[address] [facility] Comment on above: Performed By: #### A 1C ####[facility] [address] [place] [id number] Anai PROF CHEM 8 (BAS METB)on Anion gap 12.2 mmol/L Normal [facility] Comment on above: Performed By: #### B MP ####[facility] [address] [place], [place] [address]Gerken Anai BUN/Creatinine Ratio 18.8 mg/mg Normal [facility] Comment on above: Performed By: #### B MP ####[facility] [address] [place], [place] [address]Gerken Anai Calcium 9.7 mg/dL Normal 8.4-10.[address] [facility] Comment on above: Performed By: #### B MP ####[facility] [address] [place], [place] [address]Gerken Anai Chloride 99 mmol/L Normal 98-[address] [facility] Comment on above: Performed By: #### B MP ####[facility] [address] [place] [id number] Anai CO2 32.0 mmol/L Critically high 22.0-30.0 [facility] Comment on above: Performed By: #### B MP ####[facility] [address] [place], [place] [address]Gerken Anai Creatinine 0.81 mg/dL Normal 0.52-1.[address] [facility] Comment on above: Performed By: #### B MP ####[facility] [address] [place], [place] [address]Gerken Anai eGFR (non-black) mL/min/{1.73_m2} Normal >=60 [facility] Comment on above: Performed By: #### B MP ####[facility] [address] [place], [place] [address]Pvyqip Karen Glucose mass conc 126 mg/dL Critically high 74-106 [facility] Comment on above: Performed By: #### B MP ####[facility] [address] [place], [place] [address]Lfuemu Naai Potassium molar conc 4.1 mmol/L Normal 3.4-5.0 [facility] Comment on above: Performed By: #### B MP ####[facility] [address] [place], [place] [address]Vkuutw Anai Sodium 140 mmol/L Normal 137-145 [facility] Comment on above: Performed By: #### B MP ####[facility] [address] [place], [place] [address]Kupxbe Anai Urea nitrogen 15.0 mg/dL Normal 7.0-17.0 [facility] Comment on above: Performed By: #### B MP ####[facility] [address] [place], [place] [address] ANKLE LT WO CONon 017 CT ANKLE LT WO CON [address] [place] [address] Patient: MAVIS PICKARD Exam Date: 03/07/2017DOB: 1960 Gender:F : JUSTINA AmaliaEdu MILLER Admission #: [id number] : DR RASHAD TERAN Order #: [id number] HERE TO VIEW EXAM RADIOLOGY REPORT PROCEDURE: [...] Price M.D. on 03/07/2017 at 10:32 Normal [facility] Vital Signs Date Time Vital Sign Value Performing Clinician Facility 06-14-2023 08:30-0500 Body height 170.18 cm Rashad Mast Other [facility] Other 06-14-2023 08:30-0500 Body mass index (BMI) [Ratio] 36.18 kg/m2 Rashad Mast Other [facility] Other 06-14-2023 08:30-0500 Body temperature 97.6 [degF] Rashad Mast Other [facility] Other 06-14-2023 08:30-0500 Body weight 104.78 kg Rashad Mast Other [facility] Other 06-14-2023 08:30-0500 Diastolic blood pressure 78 mm[Hg] Rashad Mast Other [facility] Other 06-14-2023 08:30-0500 Respiratory rate 18 /min Rashad Mast Other [facility] Other 06-14-2023 08:30-0500 SaO2% (BldA) [Mass fraction] 96 % Rashad Mast Other [facility] Other 06-14-2023 08:30-0500 Systolic blood pressure 124 mm[Hg] Rashad Mast Other [facility] Other 06-03-2023 01:33-0400 Diastolic blood pressure 78 mm[Hg] DO Rashad Mast Work Phone: [facility] 06-03-2023 01:33-0400 Heart rate 75 /min DO Rashad Mast Work Phone: [facility] 06-03-2023 01:33-0400 Respiratory rate 16 /min DO Rashad Mast Work Phone: [facility] 06-03-2023 01:33-0400 SaO2% (BldA) [Mass fraction] 98 % DO Rashad Mast Work Phone: [facility] 06-03-2023 01:33-0400 Systolic blood pressure 140 mm[Hg] DO Rashad Mast Work Phone: [facility] 06-02-2023 21:56-0400 Body height 170.18 cm DO Rashad Mast Work Phone: [facility] 06-02-2023 21:56-0400 Body temperature 98.1 [degF] DO Rashad Mast Work Phone: [facility] 06-02-2023 21:56-0400 Body weight 116.57 kg DO Rashad Mast Work Phone: [facility] 05-21-2023 08:00-0400 Body height 170.18 cm Rashad Mast Other [facility] Other 05-21-2023 08:00-0400 Body mass index (BMI) [Ratio] 40.2 kg/m2 Rashad Mast Other [facility] Other 05-21-2023 08:00-0400 Body temperature 96.5 [degF] Rashad Mast Other [facility] Other 05-21-2023 08:00-0400 Body weight 116.44 kg Rashad Mast Other [facility] Other 05-21-2023 08:00-0400 Diastolic blood pressure 80 mm[Hg] Rashad Mast Other [facility] Other 05-21-2023 08:00-0400 Respiratory rate 18 /min Rashad Mast Other [facility] Other 05-21-2023 08:00-0400 SaO2% (BldA) [Mass fraction] 97 % Rashad Mast Other [facility] Other 05-21-2023 08:00-0400 Systolic blood pressure 124 mm[Hg] Rashad Mast Other [facility] Other 03-28-2023 08:53-0400 Body height 170.18 cm DO Rashad Mast Work Phone: [facility] 03-28-2023 08:53-0400 Body mass index (BMI) [Ratio] 40.7 kg/m2 DO Rashad Mast Work Phone: [facility] 03-28-2023 08:53-0400 Body weight 117.93 kg DO Rashad Mast Work Phone: [facility] 03-28-2023 08:47-0400 Body temperature 97.7 [degF] DO Rashad Mast Work Phone: [facility] 03-28-2023 08:47-0400 Diastolic blood pressure 83 mm[Hg] DO Rashad Mast Work Phone: [facility] 03-28-2023 08:47-0400 Heart rate 74 /min DO Rashad Mast Work Phone: [facility] 03-28-2023 08:47-0400 Respiratory rate 20 /min DO Rashad Mast Work Phone: [facility] 03-28-2023 08:47-0400 Systolic blood pressure 152 mm[Hg] DO Rashad Mast Work Phone: [facility] 02-26-2023 08:00-0400 Body height 170.18 cm Rashad Mast Other [facility] Other 02-26-2023 08:00-0400 Body mass index (BMI) [Ratio] 41.05 kg/m2 Rashad Mast Other [facility] Other 02-26-2023 08:00-0400 Body weight 118.89 kg Rashad Mast Other [facility] Other 02-26-2023 08:00-0400 Diastolic blood pressure 78 mm[Hg] Rashad Mast Other [facility] Other 02-26-2023 08:00-0400 Respiratory rate 18 /min Rashad Mast Other [facility] Other 02-26-2023 08:00-0400 SaO2% (BldA) [Mass fraction] 97 % Rashad Mast Other [facility] Other 02-26-2023 08:00-0400 Systolic blood pressure 140 mm[Hg] Rashad Mast Other [facility] Other 02-08-2023 10:00-0400 Body height 170.18 cm Rashad Mast Other [facility] Other 02-08-2023 10:00-0400 Body mass index (BMI) [Ratio] 40.91 kg/m2 Rashad Mast Other [facility] Other 07-13-2023 10:00-0400 Body temperature 97.6 [degF] Rashad Mast Other [facility] Other 02-08-2023 10:00-0400 Body weight 118.48 kg Rashad Mast Other [facility] Other 02-08-2023 10:00-0400 Diastolic blood pressure 68 mm[Hg] Rashad Mast Other [facility] Other 02-08-2023 10:00-0400 Respiratory rate 18 /min Rashad Mast Other [facility] Other 02-08-2023 10:00-0400 SaO2% (BldA) [Mass fraction] 98 % Rashad Mast Other [facility] Other 02-08-2023 10:00-0400 Systolic blood pressure 120 mm[Hg] Rashad Mast Other [facility] Other 10-16-2022 09:45-0400 Body height 170.18 cm Rashad Mast Other [facility] Other 10-16-2022 09:45-0400 Body mass index (BMI) [Ratio] 41.06 kg/m2 Rashad Mast Other [facility] Other 10-16-2022 09:45-0400 Body temperature 98.6 [degF] Rashad Mast Other [facility] Other 10-16-2022 09:45-0400 Body weight 118.93 kg Rashad Mast Other [facility] Other 10-16-2022 09:45-0400 Diastolic blood pressure 80 mm[Hg] Rashad Mast Other [facility] Other 10-16-2022 09:45-0400 Respiratory rate 18 /min Rashad Mast Other [facility] Other 10-16-2022 09:45-0400 SaO2% (BldA) [Mass fraction] 99 % Rashad Mast Other [facility] Other 10-16-2022 09:45-0400 Systolic blood pressure 122 mm[Hg] Rashad Mast Other [facility] Other 08-14-2022 09:15-0500 Body height 170.18 cm Rashad Mast Other [facility] Other 08-14-2022 09:15-0500 Body mass index (BMI) [Ratio] 41.22 kg/m2 Rashad Mast Other [facility] Other 08-14-2022 09:15-0500 Body temperature 96.7 [degF] Rashad Mast Other [facility] Other 08-14-2022 09:15-0500 Body weight 119.39 kg Rashad Mast Other [facility] Other 08-14-2022 09:15-0500 Diastolic blood pressure 80 mm[Hg] Rashad Mast Other [facility] Other 08-14-2022 09:15-0500 Respiratory rate 18 /min Rashad Mast Other [facility] Other 08-14-2022 09:15-0500 SaO2% (BldA) [Mass fraction] 96 % Rashad Mast Other [facility] Other 08-14-2022 09:15-0500 Systolic blood pressure 110 mm[Hg] Rashad Mast Other [facility] Other 06-26-2022 09:45-0500 Body height 170.18 cm Rashad Mast Other [facility] Other 06-26-2022 09:45-0500 Body mass index (BMI) [Ratio] 42.33 kg/m2 Rashad Mast Other [facility] Other 06-26-2022 09:45-0500 Body temperature 97.2 [degF] Rashad Mast Other [facility] Other 06-26-2022 09:45-0500 Body weight 122.61 kg Rashad Mast Other [facility] Other 06-26-2022 09:45-0500 Diastolic blood pressure 84 mm[Hg] Rashad Mast Other [facility] Other 06-26-2022 09:45-0500 Respiratory rate 18 /min Rashad Mast Other [facility] Other 06-26-2022 09:45-0500 SaO2% (BldA) [Mass fraction] 97 % Rashad Mast Other [facility] Other 06-26-2022 09:45-0500 Systolic blood pressure 124 mm[Hg] Rashad Mast Other [facility] Other 05-22-2022 11:45-0400 Body height 170.18 cm Rashad Mast Other [facility] Other 05-22-2022 11:45-0400 Body mass index (BMI) [Ratio] 42.66 kg/m2 Rashad Mast Other [facility] Other 05-22-2022 11:45-0400 Body temperature 97 [degF] Rashad Mast Other [facility] Other 05-22-2022 11:45-0400 Body weight 123.56 kg Rashad Mast Other [facility] Other 05-22-2022 11:45-0400 Diastolic blood pressure 76 mm[Hg] Rashad Mast Other [facility] Other 05-22-2022 11:45-0400 Respiratory rate 18 /min Rashad Mast Other [facility] Other 05-22-2022 11:45-0400 SaO2% (BldA) [Mass fraction] 96 % Rashad Mast Other [facility] Other 05-22-2022 11:45-0400 Systolic blood pressure 120 mm[Hg] Rashad Mast Other [facility] Other 03-27-2022 10:30-0400 Body height 170.18 cm Rashad Mast Other [facility] Other 03-27-2022 10:30-0400 Body mass index (BMI) [Ratio] 42.53 kg/m2 Rashad Mast Other [facility] Other 03-27-2022 10:30-0400 Body temperature 98.1 [degF] Rashad Mast Other [facility] Other 03-27-2022 10:30-0400 Body weight 123.2 kg Rashad Mast Other [facility] Other 03-27-2022 10:30-0400 Diastolic blood pressure 80 mm[Hg] Rashad Mast Other [facility] Other 03-27-2022 10:30-0400 Respiratory rate 18 /min Rashad Mast Other [facility] Other 03-27-2022 10:30-0400 SaO2% (BldA) [Mass fraction] 95 % Rashad Mast Other [facility] Other 03-27-2022 10:30-0400 Systolic blood pressure 110 mm[Hg] Rashad Mast Other [facility] Other 03-02-2022 17:15-0400 Body height 170.18 cm Rashad Mast Other [facility] Other 03-02-2022 17:15-0400 Body mass index (BMI) [Ratio] 41.23 kg/m2 Rashad Mast Other [facility] Other 03-02-2022 17:15-0400 Body temperature 97.7 [degF] Rashad Mast Other [facility] Other 03-02-2022 17:15-0400 Body weight 119.43 kg Rashad Mast Other [facility] Other 03-02-2022 17:15-0400 Diastolic blood pressure 80 mm[Hg] Rashad Mast Other [facility] Other 03-02-2022 17:15-0400 Respiratory rate 18 /min Rashad Mast Other [facility] Other 03-02-2022 17:15-0400 SaO2% (BldA) [Mass fraction] 97 % Rashad Mast Other [facility] Other 03-02-2022 17:15-0400 Systolic blood pressure 124 mm[Hg] Rashad Mast Other [facility] Other Encounters Encounter Date Encounter Type Care Provider Facility Start: 08-15-2023 End: 08-15-2023 ambulatory Rashad Mast Other [facility] Other Start: 08-15-2023 Telephone encounter Rashad Mast [facility] Start: 08-13-2023 End: 08-13-2023 ambulatory Rashad Mast Other [facility] Other Start: 08-13-2023 Nursing evaluation o f patient and report Rashad Mast [facility] Start: 06-18-2023 End: 06-18-2023 ambulatory BALTAZAR A VISCI Not Available Start: 06-14-2023 End: 06-14-2023 ambulatory Rashad Mast Other [facility] Other Start: 06-14-2023 Office outpatient visit 25 minutes Rashad Mast [facility] Start: 06-14-2023 Telephone encounter Rashad Mast [facility] Start: 06-02-2023 End: 06-03-2023 Emergency department patient visit Rashad Pendleton Facility:[facility] Start: 06-02-2023 End: 06-03-2023 Emergency department patient visit DO Rashad Mast Work Phone: [facility] Work Phone: Start: 05-28-2023 End: 05-28-2023 ambulatory Rashad Mast Other [facility] Other Start: 05-28-2023 Telephone encounter Rashad Mast [facility] Start: 05-21-2023 End: 05-21-2023 ambulatory Rashad Mast Other [facility] Other Start: 05-21-2023 Office outpatient visit 25 minutes Rashad Mast [facility] Start: 03-28-2023 End: 03-28-2023 ambulatory Viki Copsey Facility:[facility] Start: 03-28-2023 End: 03-28-2023 ambulatory DO Rashad Mast Work Phone: [facility] Work Phone: Start: 03-28-2023 End: 03-28-2023 Discharged Recurring DO Rashad Mast Work Phone: [facility] Work Phone: Start: 03-21-2023 End: 03-21-2023 ambulatory Rashad Mast Other [employer] Other Start: 03-21-2023 Telephone encounter Rashad Mast [facility] Start: 02-26-2023 End: 02-26-2023 ambulatory Rashad Mast Other [employer] [facility] Other Start: 02-26-2023 Office outpatient visit 15 minutes Rashad Mast [facility] Start: 02-09-2023 End: 02-09-2023 ambulatory Rashad Mast Other [facility] Other Start: 02-09-2023 Telephone encounter Rashad Mast [facility] Start: 02-08-2023 End: 02-08-2023 ambulatory Rashad Mast Other [employer] [facility] Other Start: 02-08-2023 Office outpatient visit 25 minutes Rashad Mast [facility] Start: 02-07-2023 End: 02-07-2023 ambulatory Rashad Mast - [facility] Facility:[facility] Start: 02-07-2023 End: 02-07-2023 ambulatory DO Rashad Mast Work Phone: [facility] Work Phone: Start: 02-07-2023 End: 02-07-2023 Patient encounter procedure DO Rahsad Mast Work Phone: [facility] Start: 01-16-2023 End: 01-16-2023 ambulatory Rashad Mast Other [employer] [facility] Other Start: 01-16-2023 Telephone encounter Rashad Mast [facility] Start: 12-26-2022 End: 12-26-2022 ambulatory Rashad Mast Other [employer] [facility] Other Start: 12-26-2022 Telephone encounter Rashad Mast [facility] Start: 11-22-2022 End: 11-22-2022 ambulatory Rashad Mast Other [facility] Other Start: 11-22-2022 Telephone encounter Rashad Mast [facility] Start: 10-21-2022 End: 10-21-2022 ambulatory Baltazar Visci Facility:[facility] Start: 10-21-2022 End: 10-21-2022 ambulatory DO Rashad Mast Work Phone: [facility] Work Phone: Start: 10-21-2022 End: 10-21-2022 Patient encounter procedure DO Rashad Mast Work Phone: [facility] Work Phone: Start: 10-17-2022 End: 10-17-2022 ambulatory Rashad Mast Other [facility] Other Start: 10-17-2022 Telephone encounter Rashad Mast [facility] Start: 10-16-2022 End: 10-16-2022 ambulatory Rashad Mast Other [facility] Other Start: 10-16-2022 Office outpatient visit 25 minutes Rashad Mast [facility] Start: 10-05-2022 End: 10-05-2022 ambulatory Rashad Mast Other [facility] Other Start: 10-05-2022 Telephone encounter Rashad Mast [facility] Start: 08-14-2022 End: 08-14-2022 ambulatory Rashad Mast Other [employer] [facility] Other Start: 08-14-2022 Office outpatient visit 15 minutes Rashad Mast [facility] Start: 08-08-2022 End: 08-08-2022 ambulatory Rashad Mast Other [facility] [facility] Other Start: 08-08-2022 Telephone encounter Rashad Mast [facility] Start: 06-26-2022 End: 06-26-2022 ambulatory Rashad Mast Other [employer] [facility] Other Start: 06-26-2022 Office outpatient visit 15 minutes Rashad Mast [facility] Start: 06-02-2022 End: 06-02-2022 ambulatory Rashad Mast Other [facility] [facility] Other Start: 06-02-2022 Telephone encounter Rashad Mast [facility] Start: 05-22-2022 End: 05-22-2022 ambulatory Rashad Mast Other [employer] [facility] Other Start: 05-22-2022 Office outpatient visit 25 minutes Rashad Mast [facility] Start: 03-27-2022 End: 03-27-2022 ambulatory Rashad Mast Other [employer] [facility] Other Start: 03-27-2022 Office outpatient visit 25 minutes Rashad Mast [facility] Start: 03-06-2022 End: 03-06-2022 ambulatory Rashad Mast Other [facility] Other Start: 03-06-2022 Telephone encounter Rashad Mast [facility] Start: 03-02-2022 End: 03-02-2022 ambulatory Rashad Mast Other [facility] Other Start: 03-02-2022 Office outpatient visit 25 minutes Rashad Mast [facility] Start: 02-22-2022 End: 02-22-2022 ambulatory Rashad Mast Other [employer] [facility] Other Start: 02-22-2022 Telephone encounter Rashad Mast [facility] Start: 02-02-2022 End: 02-02-2022 ambulatory Rashad Mast Other [facility] [facility] Other Start: 02-02-2022 Telephone encounter Rashad Mast [facility] Start: 01-18-2022 End: 01-18-2022 ambulatory Rashad Mast Other [facility] [facility] Other Start: 01-18-2022 Telephone encounter Rashad Mast [facility] Start: 12-01-2021 End: 12-01-2021 ambulatory Rashad Mast Other [facility] Other Start: 12-01-2021 Telephone encounter Rashad Mast [facility] Start: 11-22-2021 End: 11-22-2021 ambulatory Rashad Mast Other [facility] [employer] Other Start: 11-22-2021 Telephone encounter Rashad Mast [facility] Start: 06-08-2021 End: 06-08-2021 ambulatory Rashad Mast Other [facility] [facility] Other Start: 06-08-2021 Telephone encounter Rashad Mast [facility] Start: 05-18-2021 Telephone encounter Rashad Mast [facility] Start: 07-15-2018 End: 07-26-2018 Patient encounter procedure RASHAD MAST [facility] Start: 07-12-2018 End: 07-13-2018 Evaluation and management of inpatient Abrahan Pruett Facility:[facility] Start: 07-02-2018 End: 07-03-2018 Patient encounter procedure Abrahan Pruett Facility[facility] Start: 07-27-2017 End: 07-27-2017 Ambulatory [facility] Facility:[facility] Start: 07-17-2017 End: 07-18-2017 Ambulatory [facility] Facility:[facility] Start: 05-04-2017 Ambulatory [facility] Facili ty:[facility]1 Start: 04-18-2017 End: 04-19-2017 Ambulatory [facility] Facility:[facility] Start: 03-07-2017 End: 03-08-2017 Ambulatory [facility] Facility:[facility] Procedures Date Procedure Procedure Detail Performing Clinician Start: 06-02-2023 SARS-CoV-2, Influenz a & RSV (PCR) DO Rashad Mast Work Phone: Plan of Treatment Date Care Activity Detail Author Start: 06-02-2023 Plain chest X-ray XR chest 2V* [facility] Start: 06-02-2023 XR Chest 2 Views [facility] Start: 10-21-2022 Screening mammograph y of bilateral breasts MM screening mammo BI w/CAD [facility] Patient Education Bronchitis, Adult ED Fi [facility] Work Phone: Patient referral [facility] Work Phone: Immunizations Immunization Date Immunization Notes Care Provider Lan de la cruz 08-13-2023 zoster vaccine recombinant Rashad Mast Other [facility] Other 05-21-2023 zoster vaccine recombinant Rashad Mast Other [employer] [facility] Other 05-21-2023 influenza, injectabl e, quadrivalent, preservative free Rashda Mast Other [facility] [facility] Other 05-25-2022 COVID-19 Pfizer (bivalent) Rashad Mast Other [facility] Other 05-25-2022 influenza, injectabl e, quadrivalent, preservative free Rashad Mast Other [facility] Other 03-22-2020 influenza, seasonal, injectable Rashad Mast Other [facility] Other 05-07-2019 influenza, seasonal, injectable Rashad Mast Other [facility] Other 09-29-2016 Toradol per 15 mg Rashad Mast Other [facility] Other 06-14-2016 influenza, injectabl e, quadrivalent, contains preservative Arshad Mast Other [facility] Other 05-02-2015 Toradol per 15 mg Rashad Mast Other [facility] Other Payers Date Payer Category Payer Self-pay [id number] 1960 Unknown [id number] 2.16.84 [id number] 1960 Unknown [id number] 2.16.84 [id number] 1960 Unknown [id number] 2.16.84 [id number] 1960 Unknown [id number] 1957 Unknown [id number] Unknown [id number] 2.16.8 [id number] Unknown [id number] 2.16.8 [id number] Unknown [id number] 2.16.8 [id number] Unknown [id number] 2.16.8 [id number] Social History Date Type Detail Facility Unknown if ever smoked [facility] Other Sex Assigned At Sex Assigned At Bir th [facility] Other Start: 03-19-2021 End: 06-02-2023 Tobacco smoking status NHIS Never smoked tobacco (finding) [facility] Start: 1960 Sex Assigned At Female F [facility] Medical Equipment Procedure Code Equipment Code Equipment [...] how she does. Call if problems persist [facility] Other 10-30-2023 Evaluation note* Encounter Date Diagnosis Assessment Notes Treatment Notes Treatment Clinical Notes Apr, Unspecified asthma, uncomplicated (ICD-10 - J45.909) [facility] Other 10-23-2023 Evaluation note* Encounter Date Diagnosis [...] - J45.909) Currently quiet, continue present meds [facility] Other 08-30-2023 Progress note Author Viki Mcnulty [facility] March 28, 2023 8:53am Note Date/Time March 28, 2023 8: 53am [facility] [address] [place] [address] Wound Center Provider Note Signed Patient: Mavis Pickard MR#: [id number] : 1960 Acct:[id number] Age/Sex: 63 / F Copies to: Jeffry/PreceptorRashadEvelia Mcnulty APRN~ HPI Date of Visit Date of Visit: Date of Service: 03/28/2023 Time of Service: 08:50 Narrative HPI: 02/28/23 Mavis is a 62-year-old female presenting to [facility] wound care program for an initial visit [...] 2022 Right leg ulcer Mode of Arrival/ Line Tender: Personal vehicle Lives with:: Spouse Appetite Description: Within Normal Limits Who helps w/ dressing change?: Wound Care Dept Smoking Status: Never smoker [facility] Medical History (Updated 03/21/23 @ 09:33 by Viki Copsey, TRANSMITTER SUPERVISOR) Asthma Diabetes Leg edema, right Ulcer of [...] Stasis Ulcer Thickness: Skin Breakdown Bed Appearance: Petal Percent of Wound Bed Granulated/Red: 100 Percent [...] By: <Electronically signed by ABRIL Mcnulty> 03/28/2353 [facility] Work Phone: 1(853) 310-481808-23-2023 Progress note Author Viki Mcnulty [facility] March 21, 2023 9:34am Note Date/Time March 21, 2023 9: 34am [facility] [address] [place] [address] Wound Center Provider Note Signed Patient: Mavis Pickard MR#: [id number] : 1960 Acct:[id number] Age/Sex: 62 / F Copies to: Jeffry/PreceptorRashad APRN~ HPI Date of Visit Date of Visit: Date of Service: 03/21/2023 Time of Service: 09:32 Narrative HPI: 02/28/23 Mavis is a 62-year-old female presenting to [facility] wound care program for an initial visit [...] 2022 Right leg ulcer Mode of Arrival/ Line Tender: Personal vehicle Lives with:: Spouse Appetite Description: Within Normal Limits Who helps w/ dressing change?: Wound Care Dept Smoking Status: Never smoker [facility] Medical History (Updated 03/21/23 @ 09:33 [...] <Electronically signed by ABRIL Mcnulty> 03/21/23 0934 [facility] Work Phone: 1(652) 808-534508-02-2023 Progress note Author Viki Mcnulty [facility] February 28, 2023 11:36am Note Date/Time February 28, 2023 11: 36am [facility] [address] [place] [address] Wound Center Provider Note Signed Patient: Mavis Pickard MR#: [id number] : 1960 Acct:[id number] Age/Sex: 62 / F Copies to: Jeffry/PreceptorRashad DO-Evelia Mcnulty APRN~ HPI Date of Visit Date of Visit: Date of Service: 02/28/2023 Time of Service: 11:28 Narrative HPI: 02/28/23 Mavis is a 62-year-old female presenting to [facility] wound care program for an initial visit [...] 2022 Right leg ulcer Mode of Arrival/ Line Tender: Personal vehicle Lives with:: Spouse Appetite Description: Within Normal Limits Who helps w/ dressing change?: Wound Care Dept Smoking Status: Never smoker [facility] Medical History (Updated 02/28/23 @ 11:34 [...] 0.1 CM Sq: 1.000 Surrounding Tissue Appearance: Petal and Hyperpigmented Surrounding Tissue Temp: Warm Drainage [...] <Electronically signed by ABRIL Mcnulty> 02/28/23 1136 [facility] Work Phone: 1(556) 412-546107-31-2023 Evaluation note* Encounter Date Diagnosis Assessment Notes [...] nasal spray and see if that helps [facility] Other 07-13-2023 Evaluation note* Encounter Date Diagnosis [...] is doing. She is trying to get [facility] paperwork completed so that she does [...] me in the future if problems arise [facility] Other 03-20-2023 Evaluation note* Encounter Date Diagnosis [...] now, warning signs reviewed. Call if problems [facility] Other 01-16-2023 Evaluation note* Encounter Date Diagnosis [...] Recheck in 2 months, sooner if problems [facility] Other 01-10-2023 Evaluation note* Encounter Date Diagnosis Assessment Notes Treatment Notes Treatment Clinical Notes Jul, Type 2 diabetes mellitus without complications (ICD-10 - E11.9) [facility] Other 11-28-2022 Evaluation note* Encounter Date Diagnosis [...] for now. Keep working on weight loss. [facility] Other 11-04-2022 Evaluation note* Encounter Date Diagnosis Assessment Notes Treatment Notes Treatment Clinical Notes May, Type 2 diabetes mellitus without complications (ICD-10 - E11.9) [facility] Other 10-24-2022 Evaluation note* Encounter Date Diagnosis [...] Continue present Rx, keep seeing the counselor. [facility] Other 08-29-2022 Evaluation note* Encounter Date Diagnosis [...] at next visit. Continue seeing the counselor [facility] Other 08-04-2022 Evaluation note* Encounter Date Diagnosis [...] this in the long run or not. [facility] Other 06-22-2022 Evaluation note* Encounter Date Diagnosis Assessment Notes Treatment Notes Treatment Clinical Notes Dec, Type 2 diabetes mellitus without complications (ICD-10 - E11.9) [facility] Other 10-20-2021 Evaluation note* Encounter Date Diagnosis Assessment Notes Treatment Notes Treatment Clinical Notes Apr, Type 2 diabetes mellitus without complications (ICD-10 - E11.9) [facility] Other Evaluation noteNo [employer] Other Evaluation noteNo assessment information available [facility] Work Phone: [employer] Other Evaluation note* Diagnosis Onset Date Resolution Status Diabetes chronic 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 [place] 2019 Hospitalization History SEE ABOVE [facility] Other [facility] Narrative - Reported* Type Description Date Medical History diabetes mellitus Medical History asthma Medical History Depression Surgical History knee arthroscopy Surgical History rt ring finger amputation Surgical History BREAST BIOPSY RIGHT Surgical History RIGHT KNEE REPLACEMENT 06/2018 Surgical History colonoscopy - Dr. [place] 2015 Hospitalization History SEE ABOVE [facility] [employer] Other History general [facility] - [facility] [employer] Other History general Narrative - [facility] [employer] Other Summary Purpose Family History No Family [...] Wound of skin (T14.8 XXA) Referral Organization [facility] Family Rebekah Rabago Referring Provider [...] and content) DATE CREATED AUTHOR 01/22/2018 [facility] DATE CREATED AUTHOR AUTHOR'S ORGANIZ ATION 07/27/2018 [facility] DATE CREATED AUTHOR AUTHOR'S ORGANIZ ATION 06/19/2023 [facility] EPIC DATE CREATED AUTHOR AUTHOR'S ORGANIZ ATION 09/07/2023 [facility] REASON FOR VISIT (unrecogniz ed section and content) Refill/ MetforminRefillNS/CA NCELLED APPTQuestion about booster vacc.refillRefill/LantusRefill7 MTH FOLLOW UPRefill/ Lantus3 week follow up1 month Follow upRefill/ Metformin1 month Follow upRefill/ lancets1 month Follow upnausea2 month Follow uplow BSRefill/ InhalerRefill/ Zofran3 month follow up/ sore on left legrt leg woundRefill/ZofranAWVAsthma flare upFR ERFR ER Follow up [id number] SHINGLE VACCINERefill/ Zofran Care Teams (unrecognized sec [...] BE BASED ON THE PRIMARY CLINICAL RECORDS. [employer] [facility]. provides no warranty or guarantee of the accuracy or completeness of information in this document.
== END 2023-10-01 09:35 | disposition home or self-care (01) ==
LOC: VC 09:34
PROVIDERS: PCP Radiology Diagnostic Radiology; Visit Provider Radiology Diagnostic Radiology
DX: I83.813 Varicose veins of bilateral lower extremities with pain (principal)
CPT/HCPCS: 36466

== ENCOUNTER 2023-10-08 08:21 | Outpatient (OUT) | payer BC, SELFPAY ==
--- NOTE | 2023-10-08 08:22 | VEIN_ITS ---
Patient Name: MAVIS PICKARD MR#: [id number] : 1960 Exam Date: 10/08/2023 Ordering Doctor: DR MAGEN PRICE M.D. RADIOLOGY REPORT PROCEDURE: VC EXT VENOUS RT LMTD COMPARISON: VC EXT VENOUS RT LMTD, 09/28/2023. VC EXT VENOUS RT LMTD, 09/11/2023. INDICATIONS: I80.01 Phlebitis of superficial veins of rt lower extremity TECHNIQUE: Lower extremity tsang scale and Duplex Doppler evaluation of the deep venous system from the inguinal ligament through the calf veins. FINDINGS: REGION: Right lower extremity. THROMBI: Negative for DVT. 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 COMPRESSIBILITY: Non-compressible segments corresponding to thrombus FLOW: Areas of no flow corresponding to thrombus OTHER: Patent varicose vein in medial right thigh measures 4.7 mm. CONCLUSION: Post ablation occlusion of treated right leg incompetent varicose veins with no deep vein thrombus Dictated by: Magen Price MD on 10/08/2023 at 08:47 Approved by: Magen Price MD on 10/08/2023 at 08:48
--- NOTE | 2023-10-08 08:22 | VEIN_ITS ---
Patient Name: MAVIS PICKARD MR#: [id number] : 1960 Exam Date: 10/08/2023 Ordering Doctor: DR MAGEN PRICE M.D. RADIOLOGY REPORT PROCEDURE: [facility] EST L[facility]D [facility] - OFFICE VISIT FOLLOW UP COMPARISON: [facility] EST LMTD, 09/28/2023. [facility] EST LMTD, 09/11/2023. PROGRESS NOTES: The patient reports no significant problems following micro ablation varicose veins. The patient did not require oral analgesics. The patient has worn her compression stockings Physical exam demonstrates multiple thrombosed varicose veins. No residual varicose veins are observed by physical exam. No erythema or warmth to suggest cellulitis or thrombophlebitis. No active ulceration Review of the ultrasound performed the same day demonstrates occlusive thrombus extending throughout the treated right leg varicose veins. No deep vein thrombus. The patient expressed a desire to proceed with treatment of reticular and spider veins with injection sclerotherapy. VEIN/[facility] EST LMTD IMPRESSION: 1. Successful ablation of treated incompetent right leg varicose veins 2. Persistent bilateral reticular and spider. PLAN: Injection sclerotherapy reticular and spider veins Nurse notes, history and physical were reviewed and confirmed, see attached forms. The nurse was present throughout the physical exam and consultation Dictated by: Magen Price MD on 10/08/2023 at 08:52 Approved by: Magen Price MD on 10/08/2023 at 08:53
--- OUTSIDE RECORDS SUMMARY | 2023-10-08 08:25 | XMS_ITS | CCD ---
Author Name Unknown Address [address] [place] [address] Organization [facility] Care Team Providers Care Cna Caregiver Name Role Phone HIGHLANDER, PETER Unavailable Unavailable [...] Care Provider DO Baltazar Strange Attending Provider [phone] Mast, DO Rashad Primary Care Provider Mast, DO Rashad Attending Provider Mast, DO Rashad Primary Care Provider [phone] ABRIL Mcnulty Attending Provider [phone] Pendleton, DO Rashad Emergency Provider VISCI, BALTAZAR [...] Translations: [penicillin] Drug Allergy 04-18-19 UNKNOWN [facility] Repository (1 source) Sulfonamides (Antibiotic) Drug allergy (disorder) 04-18-19 UNKNOWN [facility] Repository (1 source) Sulfamethoxazole; Translations: [sulfamethoxazole ] Drug Allergy [facility] Repository (20 sources) Penicillin V Drug Allergy Unknown [facility] Other (10 sources) sulfaSALAzine Drug Allergy Unknown [facility] Other (3 sources) Sulfonamide Drug allergy Unknown [facility] Other (18 sources) Substance with sulfonamide structure and antibacterial mechanism of action (substance) Drug allergy Unknown [facility] Other (5 sources) Penicillins; Translations: [Penicillins] Allergy to substance 03-19-20 Unknown Reaction [facility] (5 sources) Sulfonamides (Antibiotic); Translations: [Sulfa (Sulfonamide Antibiotics)] Allergy to substance 03-19-20 Unknown Reaction [facility] (1 source) Penicillin Drug Allergy 08-13-19 [facility] Repository Medications Current Medications Medication Drug Class(es) [...] mg Subcutaneous once a week Sep, Active [id number] 200 actuat albuterol 0.09 mg/actuat metered dose [...] Once a day for 30 days Active [employer] - (2 sources) [employer] - USE DIRECTED TO TEST BLOOD [...] B (Bld) [Mass/Vol] 26.0 pg/mL Normal 5-100 [facility] Comment on above: Result Comment: PERF ORMED BY: [facility] [address] [place] [address] PATHOLOGIST COLLECTION SPECIALIST MARTINEZ GARZA M.D. Performed By: #### L IPID, CBC, URMACRERAT, CMP #### [facility] [address] COVID-19 / Flu A/B / RSV [...] or Cepheid Disclaimer revoked sooner. PERFORMED BY: [place] [address] PATHOLOGIST COLLECTION SPECIALIST MARTINEZ GARZA M.D. Normal [facility] Comment on above: Performed By: #### C EPHEID NEG, COVID19 FLU RSV #### [address] Cepheid COVID PCR Negativeon 06-03-2023 SARS-CoV-2 (COVID-19) RNA ROSA+probe Ql (Unsp spec) Negative Normal Negative [facility] Comment on above: Result Comment: This is a duplicate Cepheid Xpert Xpress CoV-2/Flu/RSV Plus RNA by RT-PCR result to be used for statistical tracking purpose only. PERFORMED BY: [place] [address] PATHOLOGIST COLLECTION SPECIALIST MARTINEZ GARZA M.D. Performed By: #### C EPHEID NEG, COVID19 FLU RSV #### [address] Complete Blood Count Auto Di ffon 06-03-2023 Basophils (Bld) [#/Vol] 0.0 10*3/uL Normal 0.0-0.2 [facility] Comment on above: Result Comment: PERF ORMED BY: [place] [address] PATHOLOGIST COLLECTION SPECIALIST MARTINEZ GARZA M.D. Performed By: #### L IPID, CBC, URMACRERAT, CMP #### [address] Basophils/100 WBC (Bld) 0.3 % Normal . [facility] Comment on above: Performed By: #### L IPID, CBC, URMACRERAT, CMP #### [address] Eosinophils (Bld) [#/Vol] 0.2 10*3/uL Normal 0.0-0.45 [facility] Comment on above: Performed By: #### L IPID, CBC, URMACRERAT, CMP #### [address] Eosinophils/100 WBC (Bld) 2.8 % Normal . [facility] Comment on above: Performed By: #### L IPID, CBC, URMACRERAT, CMP #### [address] Erythrocyte distribution width (RBC) [Ratio] 14.6 % Normal 11.9-15.3 [facility] Comment on above: Performed By: #### L IPID, CBC, URMACRERAT, CMP #### [address] Hematocrit (Bld) [Volume fraction] 36.2 % Normal 34.0-46.4 [facility] Comment on above: Performed By: #### L IPID, CBC, URMACRERAT, CMP #### [address] Hemoglobin (Bld) [Mass/Vol] 12.6 g/dL Normal 11.8-15.4 [facility] Comment on above: Performed By: #### L IPID, CBC, URMACRERAT, CMP #### [address] Lymphocytes (Bld) [#/Vol] 3.3 10*3/uL Normal 1.00-4.8 [facility] Comment on above: Performed By: #### L IPID, CBC, URMACRERAT, CMP #### [address] Lymphocytes/100 WBC (Bld) 42.3 % Normal . [facility] Comment on above: Performed By: #### L IPID, CBC, URMACRERAT, CMP #### [address] MCH (RBC) [Entitic mass] 29.9 pg Normal 24.7-34.3 [facility] Comment on above: Performed By: #### L IPID, CBC, URMACRERAT, CMP #### [address] MCV (RBC) [Entitic vol] 85.9 fL Normal 80-100 [facility] Comment on above: Performed By: #### L IPID, CBC, URMACRERAT, CMP #### [address] Mean Corpuscular HGB Conc 34.8 g/dL Normal 32.0-35.0 [facility] Comment on above: Performed By: #### L IPID, CBC, URMACRERAT, CMP #### [address] Monocytes (Bld) [#/Vol] 0.6 10*3/uL Normal 0.0-0.8 [facility] Comment on above: Performed By: #### L IPID, CBC, URMACRERAT, CMP #### [address] Monocytes/100 WBC (Bld) 18.99 % Normal 0.00-20.00 [facility] Comment on above: Performed By: #### L IPID, CBC, URMACRERAT, CMP #### [address] Monocytes/100 WBC (Bld) 8.3 % Normal . [facility] Comment on above: Performed By: #### L IPID, CBC, URMACRERAT, CMP #### [address] Neutrophils (Bld) [#/Vol] 3.6 10*3/uL Normal 1.8-7.7 [facility] Comment on above: Performed By: #### L IPID, CBC, URMACRERAT, CMP #### [address] Neutrophils/100 WBC (Bld) 46.3 % Normal . [facility] Comment on above: Performed By: #### L IPID, CBC, URMACRERAT, CMP #### [address] NRBC% 0.2 /100{WBC} Normal 0-0.5 [facility] Comment on above: Performed By: #### L IPID, CBC, URMACRERAT, CMP #### [address] Platelet mean volume (Bld) [Entitic vol] 8.4 fL Normal 6.3-10.7 [facility] Comment on above: Performed By: #### L IPID, CBC, URMACRERAT, CMP #### [place] [address] [place] Platelets (Bld) [#/Vol] 303 10*3/uL Normal 150-450 [facility] Comment on above: Performed By: #### L IPID, CBC, URMACRERAT, CMP #### [address] RBC (Bld) [#/Vol] 4.21 10*6/uL Normal 3.60-5.00 [facility] Comment on above: Performed By: #### L IPID, CBC, URMACRERAT, CMP #### [address] WBC (Bld) [#/Vol] 7.7 10*3/uL Normal 3.8-11.6 [facility] Comment on above: Performed By: #### L IPID, CBC, URMACRERAT, CMP #### [facility] [address] [place] [address] Comprehensive Metabolic Pane tino 06-03-2023 Albumin [Mass/Vol] 4.0 g/dL Normal 3.5-5.7 [facility] Comment on above: Performed By: #### L IPID, CBC, URMACRERAT, CMP #### [address] Albumin/Globulin [Mass ratio] 1.5 {ratio} Normal [facility] Comment on above: Performed By: #### L IPID, CBC, URMACRERAT, CMP #### [address] ALP [Catalytic activity/Vol] 72 U/L Normal 34-104 [facility] Comment on above: Performed By: #### L IPID, CBC, URMACRERAT, CMP #### [address] ALT [Catalytic activity/Vol] 16 U/L Normal 7-52 [facility] Comment on above: Performed By: #### L IPID, CBC, URMACRERAT, CMP #### [address] Anion gap [Moles/Vol] Not performed Normal 6.0-15.0 [facility] Comment on above: Performed By: #### L IPID, CBC, URMACRERAT, CMP #### [address] AST [Catalytic activity/Vol] 20 U/L Normal 13-39 [facility] Comment on above: Performed By: #### L IPID, CBC, URMACRERAT, CMP #### [place] [address] [place] Bilirubin [Mass/Vol] 0.3 mg/dL Normal 0.3-1.0 [facility] Comment on above: Performed By: #### L IPID, CBC, URMACRERAT, CMP #### [place] [address] [place] Calcium [Mass/Vol] 9.1 mg/dL Normal 8.6-10.3 [facility] Comment on above: Performed By: #### L IPID, CBC, URMACRERAT, CMP #### [facility] [address] Chloride [Moles/Vol] 105 mmol/L Normal 98-107 [facility] Comment on above: Performed By: #### L IPID, CBC, URMACRERAT, CMP #### [facility] [address] CO2 [Moles/Vol] 26.7 mmol/L Normal 21.0-31.0 [facility] Comment on above: Performed By: #### L IPID, CBC, URMACRERAT, CMP #### [address] Creatinine [Mass/Vol] 0.72 mg/dL Normal 0.60-1.20 [facility] Comment on above: Performed By: #### L IPID, CBC, URMACRERAT, CMP #### [address] Creatinine Clr Calc Pharmacy 108.28 [facility] Comment on above: Result Comment: PERF ORMED BY: [place] [address] PATHOLOGIST COLLECTION SPECIALIST MARTINEZ GARZA M.D. Performed By: #### L IPID, CBC, URMACRERAT, CMP #### [address] GFR/1.73 sq M.predicted MDRD (S/P/Bld) [Vol rate/Area] mL/min/{1.73_m2} [facility] Comment on above: Performed By: #### L IPID, CBC, URMACRERAT, CMP #### [facility] [address] Globulin (S) [Mass/Vol] 2.6 g/dL [facility] Comment on above: Performed By: #### L IPID, CBC, URMACRERAT, CMP #### [address] Glucose [Mass/Vol] 198 mg/dL High 70-100 [facility] Comment on above: Result Comment: [place] Glucose Reference Range is dependent on time and content of last meal. Glucose of more than 200 mg/dL in a nonstressed, ambulatory subject supports the diagnosis of Diabetes Mellitus. ADA recommended reference range Performed By: #### L IPID, CBC, URMACRERAT, CMP #### [facility] [address] Potassium Normal 3.5-5.1 [facility] Comment on above: Result Comment: Spec imen hemolyzed, redraw requested Performed By: #### L IPID, CBC, URMACRERAT, CMP #### [address] Protein [Mass/Vol] 6.6 g/dL Normal 6.4-8.9 [facility] Comment on above: Performed By: #### L IPID, CBC, URMACRERAT, CMP #### [address] Sodium [Moles/Vol] 132 mmol/L Low 136-145 [facility] Comment on above: Performed By: #### L IPID, CBC, URMACRERAT, CMP #### [address] Urea nitrogen [Mass/Vol] 21 mg/dL Normal 7-25 [facility] Comment on above: Performed By: #### L IPID, CBC, URMACRERAT, CMP #### [address] Creatine Kinaseon 06-03-2023 CK [Catalytic activity/Vol] 50 U/L Normal 30-223 [facility] Comment on above: Performed By: #### L IPID, CBC, URMACRERAT, CMP #### [address] ECG 12 lead ECGon 06-03-2023 ECG 12 lead ECG [facility] [place] [address] [place] [id number] Electrocardiograph Report Signed Patient: Mavis Pickard MR#: [id number] : 1960 Acct:[id number] Age/Sex: 63 / F ADM Date: 06/02/23 Loc: ER Room: Type: [facility] ER Attending Dr: Ordering Provider: Rashad [...] Signed By Winston Moe MD 2116 Normal [facility] Redraw Potassiumon 3 Potassium [Moles/Vol] 3.9 mmol/L Normal 3.5-5.1 [facility] Comment on above: Result Comment: PERF ORMED BY: [address] [place] [address] PATHOLOGIST COLLECTION SPECIALIST MARTINEZ GARZA M.D. Performed By: #### R EDSEUN K #### [address] [address] [facility] Troponin I High Sensitivityo n 06-03-2023 Troponin I High Sensitivity 4.2 pg/mL Normal 0.0-15.0 [facility] Comment on above: Result Comment: PERF ORMED BY: [address] [place] [address] PATHOLOGIST COLLECTION SPECIALIST MARTINEZ GARZA M.D. Performed By: #### L IPID, CBC, URMACRERAT, CMP #### [facility] [address] XR chest 2V*on 06-03-2023 XR chest 2V* [facility] [place] [address] [place] [address] XRay Report Signed Patient: Mavis Pickard MR#: [id number] : 1960 Acct:[id number] Age/Sex: 63 / F ADM Date: 06/02/23 Loc: ER Room: Type: [facility] ER Attending Dr: Copies to: Rashad [...] Holden Herrmann M.D.06/03/2023 9:48 AM Dictation Location: [place] [address] Transcribed By: [facility] 06/03/23947 Dictated By: Holden Herrmann II, MD 06/03/23946 Signed By: 06/03/23947 Normal [facility] Alanine aminotransferase [En zymatic activity/volume] in Serum or PlasmaOrdered By: Rashad Pendleton on 06-02-2023 ALT [Catalytic activity/Vol] 16 U/L 7-52 [facility] Albumin [Mass/volume] in Ser um or Plasma by Bromocresol green (BCG) dye binding methoOrdered By: Rashad Pendleton on 06-02-2023 Albumin BCG dye [Mass/Vol] 4.0 g/dL 3.5-5.7 [facility] Alkaline phosphatase [Enzyma tic activity/volume] in Serum or PlasmaOrdered By: Rashad Pendleton on 06-02-2023 ALP [Catalytic activity/Vol] 72 U/L 34-104 [facility] Aspartate aminotransferase [ Enzymatic activity/volume] in Serum or PlasmaOrdered By: Rashad Pendleton on 06-02-2023 AST [Catalytic activity/Vol] 20 U/L 13-39 [facility] Basophils Auto (Bld) [#/Vol] Ordered By: Rashad Pendleton on 06-02-2023 Basophils (Bld) [#/Vol] 0.0 10*3/uL 0.0-0.2 [facility] Basophils/100 WBC Auto (Bld) Ordered By: Rashad Pendleton on 06-02-2023 Basophils/100 WBC (Bld) 0.3 % . [facility] Bilirubin.total [Mass/volume ] in Serum or PlasmaOrdered By: Rashad Pendleton on 06-02-2023 Bilirubin [Mass/Vol] 0.3 mg/dL 0.3-1.0 [facility] COVID CepheidOrdered By: Denise Pendleton on 06-02-2023 SARS-CoV-2 (COVID-19) Ab IA Ql Negative Negative [facility] Comment on above: This is a duplicate [employer] Xpert Xpress CoV-2/Flu/RSV Plus RNA by RT-PCR result to be used for statistical tracking purpose only. SARS-CoV-2 (COVID-19) RNA ROSA+probe Ql (Unsp spec) [facility] Calcium [Mass/volume] in Ser um or PlasmaOrdered By: Rashad Pendleton on 06-02-2023 Calcium [Mass/Vol] 9.1 mg/dL 8.6-10.3 [facility] Carbon dioxide, total [Moles /volume] in Serum or PlasmaOrdered By: Rashad Pendleton on 06-02-2023 CO2 [Moles/Vol] 26.7 mmol/L 21.0-31.0 [facility] Chloride [Moles/volume] in S alexander or PlasmaOrdered By: Rashad Pendleton on 06-02-2023 Chloride [Moles/Vol] 105 mmol/L 98-107 [facility] Creatine kinase [Enzymatic a ctivity/volume] in Serum or PlasmaOrdered By: Rashad Pendleton on 06-02-2023 CK [Catalytic activity/Vol] 50 U/L 30-223 [facility] Creatinine [Mass/volume] in Serum or PlasmaOrdered By: Rashad Pendleton on 06-02-2023 Creatinine [Mass/Vol] 0.72 mg/dL 0.60-1.20 [facility] Eosinophils Auto (Bld) [#/Vo l]Ordered By: Rashad Pendleton on 06-02-2023 Eosinophils (Bld) [#/Vol] 0.2 10*3/uL 0.0-0.45 [facility] Eosinophils/100 WBC Auto (Bl d)Ordered By: Rashad Pendleton on 06-02-2023 Eosinophils/100 WBC (Bld) 2.8 % . [facility] Erythrocyte distribution wid th Auto (RBC) [Ratio]Ordered By: Rashad Pendleton on 06-02-2023 Erythrocyte distribution width (RBC) [Ratio] 14.6 % 11.9-15.3 [facility] Globulin Calc (S) [Mass/Vol] Ordered By: Rashad Pendleton on 06-02-2023 Globulin (S) [Mass/Vol] 2.6 g/dL [facility] Glucose [Mass/volume] in Ser um or PlasmaOrdered By: Rashad Pendleton on 06-02-2023 Glucose [Mass/Vol] 198 mg/dL 70-100 [facility] Comment on above: ADA recommended refe rence rangeRandom Glucose Reference Range is dependent on time and content of last meal. Glucose of more than 200 mg/dL in a nonstressed, ambulatory subject supports the diagnosis of Diabetes Mellitus. Hematocrit Auto (Bld) [Volum e fraction]Ordered By: Rashad Pendleton on 06-02-2023 Hematocrit (Bld) [Volume fraction] 36.2 % 34.0-46.4 [facility] Hemoglobin [Mass/volume] in BloodOrdered By: Rashad Pendleton on 06-02-2023 Hemoglobin (Bld) [Mass/Vol] 12.6 g/dL 11.8-15.4 [facility] Leukocytes [#/volume] correc vandana for nucleated erythrocytes in Blood by Automated counOrdered By: Rashad Pendleton on 06-02-2023 WBC corrected for nucl RBC Auto (Bld) [#/Vol] 7.7 10*3/uL 3.8-11.6 [facility] Lymphocytes Auto (Bld) [#/Vo l]Ordered By: Rashad Pendleton on 06-02-2023 Lymphocytes (Bld) [#/Vol] 3.3 10*3/uL 1.00-4.8 [facility] Lymphocytes/100 WBC Auto (Bl d)Ordered By: Rashad Pendleton on 06-02-2023 Lymphocytes/100 WBC (Bld) 42.3 % . [facility] MCH Auto (RBC) [Entitic mass ]Ordered By: Rashad Pendleton on 06-02-2023 MCH (RBC) [Entitic mass] 29.9 pg 24.7-34.3 [facility] MCHC Auto (RBC) [Mass/Vol]Or dered By: Rashad Pendleton on 06-02-2023 MCHC (RBC) [Mass/Vol] 34.8 g/dL 32.0-35.0 [facility] MCV Auto (RBC) [Entitic vol] Ordered By: Rashad Pendleton on 06-02-2023 MCV (RBC) [Entitic vol] 85.9 fL 80-100 [facility] Monocyte distribution width [Entitic volume] in Blood by AutomatedOrdered By: Rashad Pendleton on 06-02-2023 Monocyte distribution width Auto (Bld) [Entitic vol] 18.99 % 0.00-20.00 [facility] Monocytes Auto (Bld) [#/Vol] Ordered By: Rashad Pendleton on 06-02-2023 Monocytes (Bld) [#/Vol] 0.6 10*3/uL 0.0-0.8 [facility] Monocytes/100 WBC Auto (Bld) Ordered By: Rashad Pendleton on 06-02-2023 Monocytes/100 WBC (Bld) 8.3 % . [facility] Natriuretic peptide B [Mass/ Vol]Ordered By: Rashad Pendleton on 06-02-2023 Natriuretic peptide B (Bld) [Mass/Vol] 26.0 pg/mL 5-100 [facility] Neutrophils Auto (Bld) [#/Vo l]Ordered By: Rashad Pendleton on 06-02-2023 Neutrophils (Bld) [#/Vol] 3.6 10*3/uL 1.8-7.7 [facility] Neutrophils/100 WBC Auto (Bl d)Ordered By: Rashad Pendleton on 06-02-2023 Neutrophils/100 WBC (Bld) 46.3 % . [facility] No Panel InformationOrdered By: Rashad Pendleton on 06-02-2023 Estimated GFR (CKD-EPI) > 60.0 mL/Min [facility] Creatinine Clearance (Chem 108.28 [facility] Nucleated erythrocytes [Pres ence] in Blood by Automated countOrdered By: Rashad Pendleton on 06-02-2023 Nucleated RBC Auto Ql (Bld) 0.2 /100{WBC} 0-0.5 [facility] Platelet mean volume Auto (B ld) [Entitic vol]Ordered By: Rashad Pendleton on 06-02-2023 Platelet mean volume (Bld) [Entitic vol] 8.4 fL 6.3-10.7 [facility] Platelets Auto (Bld) [#/Vol] Ordered By: Rashad Pendleton on 06-02-2023 Platelets (Bld) [#/Vol] 303 10*3/uL 150-450 [facility] Protein [Mass/volume] in Ser um or PlasmaOrdered By: Rashad Pendleton on 06-02-2023 Protein [Mass/Vol] 6.6 g/dL 6.4-8.9 [facility] RBC Auto (Bld) [#/Vol]Ordere d By: Rashad Pendleton on 06-02-2023 RBC (Bld) [#/Vol] 4.21 10*6/uL 3.60-5.00 [facility] Serum or plasma albumin/glob ulin mass ratioOrdered By: Rashad Pendleton on 06-02-2023 Albumin/Globulin [Mass ratio] 1.5 {ratio} [facility] Serum or plasma anion gap de terminationOrdered By: Rashad Pendleton on 06-02-2023 Anion gap [Moles/Vol] TNP [facility] Comment on above: Test not performed Sodium [Moles/volume] in Ser um or PlasmaOrdered By: Rashad Pendleton on 06-02-2023 Sodium [Moles/Vol] 132 mmol/L 136-145 [facility] Troponin I.cardiac [Mass/vol ume] in Serum or Plasma by Detection limit <= 0.01 ng/Ordered By: Rashad Pendleton on 06-02-2023 Troponin I.cardiac DL <= 0.01 ng/mL [Mass/Vol] 4.2 pg/mL 0.0-15.0 [facility] Urea nitrogen [Mass/volume] in Serum or PlasmaOrdered By: Rashad Pendleton on 06-02-2023 Urea nitrogen [Mass/Vol] 21 mg/dL 7-25 [facility] WBC Auto (Bld) [#/Vol]Ordere d By: Rashad Pendleton on 06-02-2023 WBC (Bld) [#/Vol] 7.7 10*3/uL 3.8-11.6 [facility] A1C HEMOGLOBINon 05-21-2023 HbA1c (Bld) [Mass fraction] 6.3 % [employer] Other HbA1c (Bld) [Mass fraction]o n 05-21-2023 A1C HEMOGLOBIN [employer] Other A1C HEMOGLOBINon 02-08-2023 HbA1c (Bld) [Mass fraction] 6.3 % [facility] Other HbA1c (Bld) [Mass fraction]o n 02-08-2023 A1C HEMOGLOBIN [employer] Other Alanine aminotransferase [En zymatic activity/volume] in Serum or PlasmaOrdered By: Rashad Teran on 02-07-2023 ALT [Catalytic activity/Vol] 21 U/L Normal 7-52 [facility] Comment on above: Order Comment: Reaso n for Exam Type 2 diabetes mellitus without complications Performed By: #### L IPID, CBC, URMACRERAT, CMP #### [facility] [address] Albumin [Mass/volume] in Ser um or Plasma by Bromocresol green (BCG) dye binding methoOrdered By: Rashad Teran on 02-07-2023 Albumin BCG dye [Mass/Vol] 4.3 g/dL 3.5-5.7 [facility] Alkaline phosphatase [Enzyma tic activity/volume] in Serum or PlasmaOrdered By: Rashad Teran on 02-07-2023 ALP [Catalytic activity/Vol] 78 U/L Normal 34-104 [facility] Comment on above: Order Comment: Reaso n for Exam Type 2 diabetes mellitus without complications Performed By: #### L IPID, CBC, URMACRERAT, CMP #### [facility] [address] Aspartate aminotransferase [ Enzymatic activity/volume] in Serum or PlasmaOrdered By: Rashad Mast on 02-07-2023 AST [Catalytic activity/Vol] 24 U/L Normal 13-39 [facility] Comment on above: Order Comment: Reaso n for Exam Type 2 diabetes mellitus without complications Performed By: #### L IPID, CBC, URMACRERAT, CMP #### [facility] [address] Automated basophil %Ordered By: Rashad Mast on 02-07-2023 Basophils/100 WBC (Bld) 1.0 % Normal . [facility] Comment on above: Order Comment: Reaso n for Exam Type 2 diabetes mellitus without complications Performed By: #### L IPID, CBC, URMACRERAT, CMP #### [facility] [address] [place] [address] Automated basophil countOrde red By: Rashad Mast on 02-07-2023 Basophils (Bld) [#/Vol] 0.1 10*3/uL Normal 0.0-0.2 [facility] Comment on above: Order Comment: Reaso n for Exam Type 2 diabetes mellitus without complications Result Comment: PERF ORMED BY: [place] [address] PATHOLOGIST COLLECTION SPECIALIST MARTINEZ GARZA M.D. Performed By: #### L IPID, CBC, URMACRERAT, CMP #### [facility] [address] [place] [address] Automated blood monocyte cou ntOrdered By: Rashad Mast on 02-07-2023 Monocytes (Bld) [#/Vol] 0.6 10*3/uL Normal 0.0-0.8 [facility] Comment on above: Order Comment: Reaso n for Exam Type 2 diabetes mellitus without complications Performed By: #### L IPID, CBC, URMACRERAT, CMP #### [facility] [address] Automated eosinophil %Ordere d By: Rashad Mast on 02-07-2023 Eosinophils/100 WBC (Bld) 3.5 % Normal . [facility] Comment on above: Order Comment: Reaso n for Exam Type 2 diabetes mellitus without complications Performed By: #### L IPID, CBC, URMACRERAT, CMP #### [facility] [address] [place] [address] Automated eosinophil countOr dered By: Rashad Mast on 02-07-2023 Eosinophils (Bld) [#/Vol] 0.3 10*3/uL Normal 0.0-0.45 [facility] Comment on above: Order Comment: Reaso n for Exam Type 2 diabetes mellitus without complications Performed By: #### L IPID, CBC, URMACRERAT, CMP #### [facility] [address] [place] [address] Automated monocyte %Ordered By: Rashad Mast on 02-07-2023 Monocytes/100 WBC (Bld) 7.4 % Normal . [facility] Comment on above: Order Comment: Reaso n for Exam Type 2 diabetes mellitus without complications Performed By: #### L IPID, CBC, URMACRERAT, CMP #### [facility] [address] [place] [address] Automated neutrophil %Ordere d By: Rashad Mast on 02-07-2023 Neutrophils/100 WBC (Bld) 53.6 % Normal . [facility] Comment on above: Order Comment: Reaso n for Exam Type 2 diabetes mellitus without complications Performed By: #### L IPID, CBC, URMACRERAT, CMP #### [facility] [address] [place] [address] Bilirubin.total [Mass/volume ] in Serum or PlasmaOrdered By: Rashad Mast on 02-07-2023 Bilirubin [Mass/Vol] 0.6 mg/dL Normal 0.3-1.0 [facility] Comment on above: Order Comment: Reaso n for Exam Type 2 diabetes mellitus without complications Performed By: #### L IPID, CBC, URMACRERAT, CMP #### [facility] [address] [id number] [place] Calcium [Mass/volume] in Ser um or PlasmaOrdered By: Rashad Mast on 02-07-2023 Calcium [Mass/Vol] 9.6 mg/dL Normal 8.6-10.3 [facility] Comment on above: Order Comment: Reaso n for Exam Type 2 diabetes mellitus without complications Performed By: #### L IPID, CBC, URMACRERAT, CMP #### [facility] [address] [place] [address] [place] Carbon dioxide, total [Moles /volume] in Serum or PlasmaOrdered By: Rashad Mast on 02-07-2023 CO2 [Moles/Vol] 28.0 mmol/L Normal 21.0-31.0 [facility] Comment on above: Order Comment: Reaso n for Exam Type 2 diabetes mellitus without complications Performed By: #### L IPID, CBC, URMACRERAT, CMP #### [facility] [address] [id number] [place] Chloride [Moles/volume] in S alexander or PlasmaOrdered By: Rashad Mast on 02-07-2023 Chloride [Moles/Vol] 103 mmol/L Normal 98-107 [facility] Comment on above: Order Comment: Reaso n for Exam Type 2 diabetes mellitus without complications Performed By: #### L IPID, CBC, URMACRERAT, CMP #### [facility] [address] [id number] [place] Cholesterol [Mass/volume] in Serum or PlasmaOrdered By: Rashad Mast on 02-07-2023 Cholesterol [Mass/Vol] 119 mg/dL Low 140-200 [facility] Comment on above: Chol less than 200 m g/dl low riskChol 201-239 mg/dl borderline riskChol 240 mg/dl and greater high risk Order Comment: Reaso n for Exam Type 2 diabetes mellitus without complications Result Comment: Chol less than 200 mg/dl low risk Chol 201-239 mg/dl borderline risk Chol 240 mg/dl and greater high risk Performed By: #### L IPID, CBC, URMACRERAT, CMP #### [facility] [address] Cholesterol in LDL Calc [Mas s/Vol]Ordered By: Rashad Teran on 02-07-2023 Cholesterol in LDL [Mass/Vol] 40 mg/dL 0-100 [facility] Comment on above: LDL ATP III CLASSIFI CATIONLDL less than 100 mg/dL OptimalLDL 100-129 mg/dL Near or above optimalLDL 130-159 mg/dL Borderline highLDL 160-189 mg/dL HighLDL greater than 189 mg/dL Very high Cholesterol in VLDL Calc [Ma ss/Vol]Ordered By: Rashad Teran on 02-07-2023 Cholesterol in VLDL [Mass/Vol] 29 mg/dL [facility] Complete Blood Count Auto Di ffon 02-07-2023 Mean Corpuscular HGB Conc 33.2 g/dL Normal 32.0-35.0 [facility] Comment on above: Order Comment: Reaso n for Exam Type 2 diabetes mellitus without complications Performed By: #### L IPID, CBC, URMACRERAT, CMP #### [facility] [address] NRBC% 0.2 /100{WBC} Normal 0-0.5 [facility] Comment on above: Order Comment: Reaso n for Exam Type 2 diabetes mellitus without complications Performed By: #### L IPID, CBC, URMACRERAT, CMP #### [facility] [address] Comprehensive Metabolic Pane tino 02-07-2023 Albumin [Mass/Vol] 4.3 g/dL Normal 3.5-5.7 [facility] Comment on above: Order Comment: Reaso n for Exam Type 2 diabetes mellitus without complications Performed By: #### L IPID, CBC, URMACRERAT, CMP #### [facility] [address] GFR/1.73 sq M.predicted MDRD (S/P/Bld) [Vol rate/Area] mL/min/{1.73_m2} Normal [facility] Comment on above: Order Comment: Reaso n for Exam Type 2 diabetes mellitus without complications Performed By: #### L IPID, CBC, URMACRERAT, CMP #### [facility] [address] [place] [address] [place] Creatinine [Mass/volume] in Serum or PlasmaOrdered By: Rashad Mast on 02-07-2023 Creatinine [Mass/Vol] 0.82 mg/dL Normal 0.60-1.20 [facility] Comment on above: Order Comment: Reaso n for Exam Type 2 diabetes mellitus without complications Performed By: #### L IPID, CBC, URMACRERAT, CMP #### [facility] [address] [place] [address] [place] Creatinine [Mass/volume] in UrineOrdered By: Rashad Mast on 02-07-2023 Creatinine (U) [Mass/Vol] 140.0 mg/dL 11.0-20.0 [facility] Erythrocyte distribution wid th [Ratio] by Automated countOrdered By: Rashad Mast on 02-07-2023 Erythrocyte distribution width (RBC) [Ratio] 14.3 % Normal 11.9-15.3 [facility] Comment on above: Order Comment: Reaso n for Exam Type 2 diabetes mellitus without complications Performed By: #### L IPID, CBC, URMACRERAT, CMP #### [facility] [address] [place] [address] [place] Erythrocytes [#/volume] in B lood by Automated countOrdered By: Rashad Mast on 02-07-2023 RBC (Bld) [#/Vol] 4.98 10*6/uL Normal 3.60-5.00 [facility] Comment on above: Order Comment: Reaso n for Exam Type 2 diabetes mellitus without complications Performed By: #### L IPID, CBC, URMACRERAT, CMP #### [facility] [address] [place] [address] [place] Glucose [Mass/volume] in Ser um or PlasmaOrdered By: Rashad Mast on 02-07-2023 Glucose [Mass/Vol] 122 mg/dL High 70-100 [facility] Comment on above: ADA recommended refe rence rangeRandom Glucose Reference Range is dependent on time and content of last meal. Glucose of more than 200 mg/dL in a nonstressed, ambulatory subject supports the diagnosis of Diabetes Mellitus. Order Comment: Reaso n for Exam Type 2 diabetes mellitus without complications Result Comment: [place] om Glucose Reference Range is dependent on time and content of last meal. Glucose of more than 200 mg/dL in a nonstressed, ambulatory subject supports the diagnosis of Diabetes Mellitus. ADA recommended reference range Performed By: #### L IPID, CBC, URMACRERAT, CMP #### [facility] [address] Hematocrit [Volume Fraction] of Blood by Automated countOrdered By: Rashad Rainforest on 02-07-2023 Hematocrit (Bld) [Volume fraction] 42.0 % Normal 34.0-46.4 [facility] Comment on above: Order Comment: Reaso n for Exam Type 2 diabetes mellitus without complications Performed By: #### L IPID, CBC, URMACRERAT, CMP #### [facility] [address] [place] [address] Hemoglobin [Mass/volume] in BloodOrdered By: [employer] on 02-07-2023 Hemoglobin (Bld) [Mass/Vol] 14.0 g/dL Normal 11.8-15.4 [facility] Comment on above: Order Comment: Reaso n for Exam Type 2 diabetes mellitus without complications Performed By: #### L IPID, CBC, URMACRERAT, CMP #### [facility] [address] [place] [address] [place] Leukocytes [#/volume] correc vandana for nucleated erythrocytes in Blood by Automated counOrdered By: [employer] on 02-07-2023 WBC corrected for nucl RBC Auto (Bld) [#/Vol] 7.4 10*3/uL 3.8-11.6 [facility] Leukocytes [#/volume] in Blo od by Automated countOrdered By: RashadBerrybenka on 02-07-2023 WBC (Bld) [#/Vol] 7.4 10*3/uL Normal 3.8-11.6 [facility] Comment on above: Order Comment: Reaso n for Exam Type 2 diabetes mellitus without complications Performed By: #### L IPID, CBC, URMACRERAT, CMP #### [facility] [address] [place] [address] Lipid Panelon 02-07-2023 LDL Cholesterol,Calculate d 40 mg/dL Normal 0-100 [facility] Comment on above: Order Comment: Reaso n for Exam Type 2 diabetes mellitus without complications Result Comment: LDL ATP III CLASSIFICATION LDL less than 100 mg/dL Optimal LDL 100-129 mg/dL Near or above optimal LDL 130-159 mg/dL Borderline high LDL 160-189 mg/dL High LDL greater than 189 mg/dL Very high Performed By: #### L IPID, CBC, URMACRERAT, CMP #### [address] Triglyceride w/Reflex 148 mg/dL Normal 0-149 [facility] Comment on above: Order Comment: [...] #### L IPID, CBC, URMACRERAT, CMP #### [address] VLDL CHOLESTEROL 29 mg/dL Normal [facility] Comment on above: Order Comment: Reaso n for Exam Type 2 diabetes mellitus without complications Performed By: #### L IPID, CBC, URMACRERAT, CMP #### [address] Lymphocytes [#/volume] in Bl ood by Automated countOrdered By: Rashad Teran on 02-07-2023 Lymphocytes (Bld) [#/Vol] 2.6 10*3/uL Normal 1.00-4.8 [facility] Comment on above: Order Comment: Reaso n for Exam Type 2 diabetes mellitus without complications Performed By: #### L IPID, CBC, URMACRERAT, CMP #### [facility] [address] [place] [address] [place] Lymphocytes/100 leukocytes i n Blood by Automated countOrdered By: Rashad Mast on 02-07-2023 Lymphocytes/100 WBC (Bld) 34.5 % Normal . [facility] Comment on above: Order Comment: Reaso n for Exam Type 2 diabetes mellitus without complications Performed By: #### L IPID, CBC, URMACRERAT, CMP #### [facility] [address] [place] [address] [place] MCH [Entitic mass] by Automa vandana countOrdered By: Rashad Mast on 02-07-2023 MCH (RBC) [Entitic mass] 28.0 pg Normal 24.7-34.3 [facility] Comment on above: Order Comment: Reaso n for Exam Type 2 diabetes mellitus without complications Performed By: #### L IPID, CBC, URMACRERAT, CMP #### [facility] [address] [place] [address] MCHC Auto (RBC) [Mass/Vol]Or dered By: Rashad Mast on 02-07-2023 MCHC (RBC) [Mass/Vol] 33.2 g/dL 32.0-35.0 [facility] MCV [Entitic volume] by Auto mated countOrdered By: Rashad Mast on 02-07-2023 MCV (RBC) [Entitic vol] 84.3 fL Normal 80-100 [facility] Comment on above: Order Comment: Reaso n for Exam Type 2 diabetes mellitus without complications Performed By: #### L IPID, CBC, URMACRERAT, CMP #### [facility] [address] [place] [address] [place] MicroAlb Creat Ratio,Uon Creatinine, Urine (Random) 140.0 mg/dL High 11.0-20.0 [facility] Comment on above: Order Comment: Reaso n for Exam Type 2 diabetes mellitus without complications Performed By: #### L IPID, CBC, URMACRERAT, CMP #### [facility] [address] Microalbumin/Creatini ne Ratio 5.0 mg/g Normal 0.0-30.0 [facility] Comment on above: Order Comment: Reaso n for Exam Type 2 diabetes mellitus without complications Result Comment: 30-3 00 mg/g indicates an increased risk for diabetic nephropathy. Greater than 300 mg/g is consistent with clinical nephropathy. (Am. J. Kidney Disease 1995, 25:107) PERFORMED BY: [place] [address] PATHOLOGIST COLLECTION SPECIALIST MARTINEZ GARZA M.D. Performed By: #### L IPID, CBC, URMACRERAT, CMP #### [facility] [address] [place] [address] Microalbumin [Mass/volume] i n UrineOrdered By: Rashad Teran on 02-07-2023 Albumin DL <= 20 mg/L (U) [Mass/Vol] 0.8 mg/dL Normal 0.0-1.8 [facility] Comment on above: Order Comment: Reaso n for Exam Type 2 diabetes mellitus without complications Performed By: #### L IPID, CBC, URMACRERAT, CMP #### [facility] [address] [place] [address] Neutrophils [#/volume] in Bl ood by Automated countOrdered By: Rashad Teran on 02-07-2023 Neutrophils (Bld) [#/Vol] 4.0 10*3/uL Normal 1.8-7.7 [facility] Comment on above: Order Comment: Reaso n for Exam Type 2 diabetes mellitus without complications Performed By: #### L IPID, CBC, URMACRERAT, CMP #### [facility] [address] [place] [address] No Panel InformationOrdered By: Rashad Teran on 02-07-2023 Estimated GFR (CKD-EPI) > 60.0 mL/Min [facility] Creatinine Clearance (Chem N/A [facility] Nucleated erythrocytes [Pres ence] in Blood by Automated countOrdered By: Rashad Teran on 02-07-2023 Nucleated RBC Auto Ql (Bld) 0.2 /100{WBC} 0-0.5 [facility] Platelet mean volume [Entiti c volume] in Blood by Automated countOrdered By: Rashad Mast on 02-07-2023 Platelet mean volume (Bld) [Entitic vol] 9.3 fL Normal 6.3-10.7 [facility] Comment on above: Order Comment: Reaso n for Exam Type 2 diabetes mellitus without complications Performed By: #### L IPID, CBC, URMACRERAT, CMP #### [facility] [address] [place] [address] [place] Platelets [#/volume] in Bloo d by Automated countOrdered By: Rashad Mast on 02-07-2023 Platelets (Bld) [#/Vol] 242 10*3/uL Normal 150-450 [facility] Comment on above: Order Comment: Reaso n for Exam Type 2 diabetes mellitus without complications Performed By: #### L IPID, CBC, URMACRERAT, CMP #### [facility] [address] [place] [address] [place] Potassium [Moles/volume] in Serum or PlasmaOrdered By: Rashad Mast on 02-07-2023 Potassium [Moles/Vol] 4.4 mmol/L Normal 3.5-5.1 [facility] Comment on above: Order Comment: Reaso n for Exam Type 2 diabetes mellitus without complications Performed By: #### L IPID, CBC, URMACRERAT, CMP #### [facility] [address] [place] [address] [place] Protein [Mass/volume] in Ser um or PlasmaOrdered By: Rashad Mast on 02-07-2023 Protein [Mass/Vol] 6.9 g/dL Normal 6.4-8.9 [facility] Comment on above: Order Comment: Reaso n for Exam Type 2 diabetes mellitus without complications Performed By: #### L IPID, CBC, URMACRERAT, CMP #### [facility] [address] [place] [address] [place] Serum globulin measurement b y calculation (mass/volume)Ordered By: Rashad Mast on 02-07-2023 Globulin (S) [Mass/Vol] 2.6 g/dL Normal [facility] Comment on above: Order Comment: Reaso n for Exam Type 2 diabetes mellitus without complications Performed By: #### L IPID, CBC, URMACRERAT, CMP #### [facility] [address] Serum or plasma albumin/glob ulin mass ratioOrdered By: Rashad Teran on 02-07-2023 Albumin/Globulin [Mass ratio] 1.7 {ratio} Normal [facility] Comment on above: Order Comment: Reaso n for Exam Type 2 diabetes mellitus without complications Performed By: #### L IPID, CBC, URMACRERAT, CMP #### [facility] [address] Serum or plasma anion gap de terminationOrdered By: Rashad Teran on 02-07-2023 Anion gap [Moles/Vol] 12.4 mmol/L Normal 6.0-15.0 [facility] Comment on above: Order Comment: Reaso n for Exam Type 2 diabetes mellitus without complications Performed By: #### L IPID, CBC, URMACRERAT, CMP #### [facility] [address] Serum or plasma high density lipoprotein (HDL) cholesterol measurementOrdered By: Rashad Teran on 02-07-2023 Cholesterol in HDL [Mass/Vol] 49 mg/dL Normal 23-92 [facility] Comment on above: HDL CHOL ATP-III CLA SSIFICATION Cardiovascular RiskHDL > or equal to 60 mg/dL LOWHDL < 40 mg/dL HIGH Order Comment: Reaso n for Exam Type 2 diabetes mellitus without complications Result Comment: HDL CHOL ATP-III CLASSIFICATION Cardiovascular Risk HDL > or equal to 60 mg/dL LOW HDL < 40 mg/dL HIGH Performed By: #### L IPID, CBC, URMACRERAT, CMP #### [facility] [address] Serum or plasma total choles terol/high density lipoprotein (HDL) cholesterol mass ratOrdered By: Rashad Teran on 02-07-2023 Cholesterol.total/Cho lesterol in HDL [Mass ratio] 2.4 {ratio} Normal <5.0 [facility] Comment on above: Order Comment: Reaso n for Exam Type 2 diabetes mellitus without complications Result Comment: PERF ORMED BY: [place] [address] PATHOLOGIST COLLECTION SPECIALIST MARTINEZ GARZA M.D. Performed By: #### L IPID, CBC, CHAYO, TED #### [facility] [address] Sodium [Moles/volume] in Ser um or PlasmaOrdered By: Rashad Mast on 02-07-2023 Sodium [Moles/Vol] 139 mmol/L Normal 136-145 [facility] Comment on above: Order Comment: Reaso n for Exam Type 2 diabetes mellitus without complications Performed By: #### L IPIDTC, CHAYO, TED #### [facility] [address] Triglyceride [Mass/volume] i n Serum or PlasmaOrdered By: Rashad Mast on 02-07-2023 Triglyceride [Mass/Vol] 148 mg/dL 0-149 [facility] Comment on above: TRIG ATP III CLASSIF ICATIONTRIG less than 150 mg/dL NormalTRIG 150-199 mg/dL Borderline highTRIG 200-500 mg/dL High TRIG greater than 500 mg/dL Very highStandard traceable to the Center for Disease Conrtrol and Prevention (CDC) test method. Urea nitrogen [Mass/volume] in Serum or PlasmaOrdered By: Rashad Mast on 02-07-2023 Urea nitrogen [Mass/Vol] 15 mg/dL Normal 7-25 [facility] Comment on above: Order Comment: Reaso n for Exam Type 2 diabetes mellitus without complications Performed By: #### L IPID, CBC, CHAYO, CMP #### [facility] [address] Urine microalbumin/creatinin e mass ratioOrdered By: Rashad Mast on 02-07-2023 Albumin/Creatinine DL <= 20 mg/L (U) [Mass ratio] 5.0 mg/g 0.0-30.0 [facility] Comment on above: 30-300 mg/g indicate s an increased risk for diabetic nephropathy. Greater than 300 mg/g is consistent with clinical nephropathy. (Am. J. Kidney Disease 1995, 25:107) MM screening mammo BI w/CADo n 10-23-2022 MM screening mammo BI w/CAD [facility] [place] [address] [place] [address] Mammography Report Signed Patient: Mavis Pickard MR#: [id number] : 1960 Acct:[id number] Age/Sex: 62 / F ADM Date: 10/21/22 Loc: [place] [facility]: Baltazar Strange DO Copies [...] Anai Gomez M.D.10/23/2022 7:17 AM Dictation Location: [facility] Transcribed By: LADONNA 10/23/22716 Dictated By: Anai Gomez MD 10/23/2214 Signed By: 10/23/22716 [facility] A1C HEMOGLOBINon 10-16-2022 HbA1c (Bld) [Mass fraction] 7.0 % [facility] Other HbA1c (Bld) [Mass fraction]o n 10-16-2022 A1C HEMOGLOBIN [employer] Other A1C HEMOGLOBINon 06-26-2022 HbA1c (Bld) [Mass fraction] 8.6 % [facility] Other HbA1c (Bld) [Mass fraction]o n 06-26-2022 A1C HEMOGLOBIN [employer] Other A1C HEMOGLOBINon 03-02-2022 HbA1c (Bld) [Mass fraction] 9.0 % [facility] Other HbA1c (Bld) [Mass fraction]o n 03-02-2022 A1C HEMOGLOBIN [employer] Other Progress Note-Physicianon Protein mass conc Patient: [...] insulin dependent (IDDM), controlled / SNOMED CT 482820466 / ConfirmedAsthma / SNOMED CT 312630081 / ConfirmedLocalized osteoarthritis of knee / SNOMED CT 131399453 / Confirmed Physical Examination Intake and Output Denies significant n/v and is tolerating p.o. No qualifying data available Respiratory: Adequate air exchange with druze of preoperative function.. Cardiovascular: Cardiovascular function is stable and has returned to preoperative levels.. Neurologic: Pt has returned to preoperative baseline.. Review / Management Condition: Stable. Assessment Anesthetic outcome No anesthetic complications noted. Plan Transfer/ Discharge: Patient can be discharged from PACU when criteria met. Condition good. Normal [facility] Comment on above: Result Comment: [...] insulin dependent (IDDM), controlled / SNOMED CT 966920724 / ConfirmedAsthma / SNOMED CT 714400396 / ConfirmedLocalized osteoarthritis of knee / SNOMED CT 997081272 / Confirmed Physical Examination Intake and Output [...] report . Respiratory: Adequate air exchange with druze of preoperative function.. Cardiovascular: Cardiovascular function is stable and has returned to preoperative levels.. Neurologic: Pt has returned to preoperative baseline.. Review / Management Condition: Stable. Assessment Anesthetic outcome No anesthetic complications noted. Plan Transfer/ Discharge: Patient can be discharged from PACU when criteria met. Condition good. Normal [facility] Coding Summary.on 07-16-2018 Coding Summary. CODING DATE: FINAL 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 However, the narrative phrase printed from the coding software may appear abbreviated, or result in slightly different terminology. Coded By: Radha Ch Date Saved: 07/16/2018 08:23 am Normal [facility] Coding Summary.on 07-15-2018 Coding Summary. CODING DATE: FINAL [facility] STATUS: PAYOR: Sulma ADMIT DX: REASON [...] CphT Date Saved: 07/15/2018 01:38 pm Normal [facility] Main [place] Intraoperative Recor don 07-15-2018 Main OR Intraoperative Record IntraOp Document Type FT Summary Primary Physician: Abrahan Pruett DO Finalized Date/Time: 07/15/18 14:25:27 Pt. Name: MAVIS PICKARD Evelia Delcid./Sex: 1960 Female Med Rec #: [id number] Physician: Abrahan Pruett DO Financial #: [id number] Pt. Type: I Room/Bed: N316/01 Admit/Disch: 07/12/18 05:38:00 - 07/13/18 15:35:00 Institution: Case Times FT Entry 1 Patient Times In Room 07/12/18 07:44:00 Out Room 07/12/18 10:08:00 Procedure Times Start 07/12/18 08:19:00 Stop 07/12/18 10:05:00 Anesthesia Times Start 07/12/18 07:44:00 Stop 07/12/18 10:08:00 Block Timeout w/ 07/12/18 07:08:00 Anesthesia Last Modified By: Kelley Boggs CST 07/12/18 10:08:14 General Comments: [id number] - patient taken to block room hooked [...] Attendee Naz Alfred DO, Steven Rivera RN, [facility] Performed Anesthesiologist Surgeon - Primary TEAM LEAD Newspaper Photojournalist Time In 07/12/18 07:44:00 07/12/18 08:02:00 07/12/18 [...] Harrington RN, Geovanna Montes CST Role Performed Power Plant Mechanic - Primary Power Plant Mechanic - Primary Scrub - Primary Time In 07/12/18 07:50:00 07/12/18 07:44:00 07/12/18 07:44:00 Time Out 07/12/18 10:08:00 07/12/18 09:44:00 07/12/18 09:44:00 Procedure KNEE TOTAL KNEE TOTAL KNEE TOTAL ARTHROPLASTY(Right) ARTHROPLASTY(Right) ARTHROPLASTY(Right) Comments Last Modified By: Nahum RN, [place] 07/12/18 Nahum RN, [place] 07/12/18 Nahum RN, [place] 07/12/18 10:11:04 10:11:04 10:11:04 Entry 7 Entry 8 Case Attendee Jean SOIL SCIENTIST, Meseret Mendiola RN, CNOR, CRNFA, ONC, Kristina Role Performed Scrub - Other Staff - Other Time In 07/12/18 07:46:00 07/12/18 07:44:00 Time Out 07/12/18 10:08:00 07/12/18 08:10:00 Procedure KNEE TOTAL KNEE TOTAL ARTHROPLASTY(Right) ARTHROPLASTY(Right) Comments OUTSIDE TECHNICAL AGRONOMIST Last Modified By: Nahum RN, [place] 07/12/18 Nahum RN, [place] 07/12/18 10:11:04 10:11:04 General Comments: CELESTINO CHOI REP PRESENT FOR PROCEDURE. Stacie ANGEL RNsupervisor grinding Protocols FT Pre-Care Text: Implements protective measures [...] RN, Coy RN, Emily A, ONCKristina Churchill Marizol SOIL SCIENTIST, Geovanna E [place] SOIL SCIENTIST, Geovanna E SOIL SCIENTIST, Geovanna E Outcomes Met? Yes Yes Yes [...] to transfer/transport General Comments: REPORT GIVEN TO SHELLFISH SHUCKEREdu ANGEL RN Dressing/Packing FT Pre-Care Text: Administers [...] safely administered during the perioperative period For [place] please see scanned medication reconcilliation form for medications used at the field during the procedure. Tourniquet FT Pre-Care Text: Implements protective measures to prevent skin/tissue injury due to mechanical sources Entry 1 Tourniquet Type TOURNIQUET CUFF PURPLE Setting 375 mmHg 34 X 4 [6223-597-575][F] Equipment Number C Placement Right Upper Thigh Cuff Size 34 Padding Under Cuff Yes Applied Applied By [place] Sidhu RN, Rivera Skin Assessment Unremarkable Carlos Manuel POSDAA Before Inflation Skin Assessment Unremarkable After Inflation [...] [6197-9-001][F] BONE [6197-9-001][F] Serial Number Lot Number [id number] Shift Boss [facility] -HOWMytrusCA JIMBO Catalog ?# 6197-9-010 [F] 6197-9-010 [F] [...] BASEPLATE Serial Number Lot Number [id number] Shift Boss JIMBO JIMBO Catalog ?# [id number]-[id number] 5520-B-500 Size [...] Present Upon Arrival No Inserted LF 16FR [855630][F] Insertion Date/Time 07/12/18 08:02:00 Urine Residual 110 [...] BLANKET MISTRAL AIR Quantity 1 Aid TORSO [[id number]][F] Fluid/[place] Unit Mistral warming system Setting HIGH/43 Body Site Upper anterior torso Last Modified By: Latrice Harrington RN 07/12/18 08:35:52 Case Comments Finalized By: Kelley Boggs CST Document Signatures Signed By: [place] Sidhu RN 07/12/18 10:11 Kelley Boggs CST 07/15/18 14:25 Normal [facility] Sodiumon 07-15-2018 Sodium molar conc 134 mmol/L Low 135-145 [facility] Comment on above: Performed By: #### 1 [id number], 1398795, 0798212, 6144087, 311121823, 3877024, 7939809 ####[facility] [address] [place] [address] Inpatient Clinical Summaryon 07-14-2018 Inpatient Clinical Summary [address] [address] Clinical Summary Person Information:Name: MAVIS PICKARD Age: 58 Years : 1960 12:00 AM Sex: Female PCP: RASHAD TERAN DO Marital Status: Race:White Ethnicity:Non- or Language:Croatian Visit Id: Visit Reason:RIGHT KNEE OA Speciality: Acuity: Enc Type: Inpatient Med Service: Surgery Arrival:07/12/2018 5:38 AM Discharge: 07/13/2018 3:35 PM Dispo Type: Home w/ Home Health Address:[address] [place] [phone] Provider Notes: Diagnosis:1:Knee osteoarthritis; 2:Anemia; 3:Hyponatremia; 4:Asthma; [...] DO Follow up:With: Address: When: Abrahan Pruett [place] [phone] Business (1) 08/07/2018 2:00 PM With: Address: When: RASHAD TERAN [address] [place], [place] [id number] Business (1) Patient Education Information: Osteoarthritis; Hyponatremia, Gcki-ye-Wney; Shine - Post Op Total Knee Arthroplasty (Revised 2016) (CUSTOM)Percocet 325 mg-5 mg Tab Normal [facility] Inpatient Patient Summaryon 07-14-2018 Inpatient Patient Summary [place] [id number] Patient Discharge Instructions PERSON INFORMATION Name: MAVIS PICKARD Date of : 1960 12:00 AM Current Date: 07/14/18 09:43:55 PHYSICIANS Admitting Physician[facility]: RASHAD TERAN DO [facility] Comment: Discharge Diagnosis: 1:Knee osteoarthritis; 2:Anemia; [...] results: NoneFollow up:With: Address: When: Abrahan Pruett [address] [address] Business (1) 08/07/2018 2:00 PM With: Address: When: RASHAD TERAN [address] [place] [id number] Business (1) In the event that this physician does not participate in your insurance network, please consult with your insurance company to find a nearby participating provider. Comment: NEERAJ Crowe CYNTHIA S, have received the attached patient education materials/instructions and have verbalized understanding:Patient Signature __ Date Clinican/Nu rse Signature Date HERE ARE THE MEDICATION CHANGES THAT OCCURRED DURING YOUR HOSPITAL STAY [facility]ations[id number] [address] [facility] [address] [place], [place] [id number], [phone]-oxycodon e (Percocet 325 mg-5 mg Tab) 1 [...] aerobics, that get your heart pumping. ? Ttves-sx-zzanow activities. These keep your joints limber.? Balance [...] have night sweats. FOR MORE INFORMATION? National [place] of Arthritis and Musculoskeletal and Skin Diseases: www.niams.nih.gov? National [place] on Aging: www.anahi.nih.gov? [employer] [employer]: www.rheumatology.org Document Released: 07/16/2006 Document Revised: 11/30/2014 Document Reviewed: 2014ExitCare? Patient Information ?2015 [employer]. This information is not intended to replace [...] 10/07/2012 Document Reviewed: 03/27/2012ExitCare? Patient Information ?2015 [employer]. This information is not intended to replace advice given to you by your health care provider. 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 Not all [...] to ensure that the information provided by [employer]. ('[employer]') is accurate, up-to-date, and complete, but no guarantee is made to that effect. Drug information contained herein may be time sensitive. [employer] information has been compiled for use by healthcare practitioners and consumers in the [place] and therefore [employer] does not warrant that uses outside of the [place] are appropriate, unless specifically indicated otherwise. [employer]'s drug information does not endorse drugs, diagnose patients or recommend therapy. [employer] drug information is an informational resource designed [...] effective or appropriate for any given patient. [facility] does not assume any responsibility for any aspect of healthcare administered with the aid of information [facility] provides. The information contained herein is not intended to cover all possible uses, directions, precautions, warnings, drug interactions, allergic reactions, or adverse effects. If you have questions about the drugs you are taking, check with your doctor, nurse or pharmacist. Copyright 6096-4303 [employer]. Version: 16.01. Revision Date: 07/10/2017. Thank you for choosing [place] Normal [facility] Auto Diffon 07-13-2018 Basophils Auto #/vol (Bld) 0.3 % Normal 0.0-2.0 [facility] Comment on above: Order Comment: Order Added by Discern Expert. Performed By: #### 1 9464329, 5124368, 2048847, 1305413, 660571579, 2403813, 6261428 ####[facility] [address] [place] [address] Basophils/Leukocytes Auto Pure number fraction (Bld) 0.0 E9/L Normal 0.0-0.2 [facility] Comment on above: Order Comment: Order Added by Discern Expert. Performed By: #### 1 6949501, 9649990, 6768272, 7950676, 473062475, 0352606, 2702762 ####[place] [address] [place] [address] Eosinophils/100 WBC Auto (Bld) 0.7 % Normal 0.0-8.0 [facility] Comment on above: Order Comment: Order Added by Discern Expert. Performed By: #### 1 5404804, 7345149, 6664441, 7999457, 114685280, 0863886, 3035550 ####[place] [address] [place] [address] Eosinophils/Leukocyte s Auto Pure number fraction (Bld) 0.1 E9/L Normal 0.0-0.5 [facility] Comment on above: Order Comment: Order Added by Discern Expert. Performed By: #### 1 0588523, 6723987, 2197422, 6081970, 970716598, 9145451, 6079568 ####[place] [address] [place] [address] Lymphocytes/100 WBC Auto (Bld) 14.2 % Normal 14.0-50.0 [facility] Comment on above: Order Comment: Order Added by Discern Expert. Performed By: #### 1 2300565, 4536009, 5551879, 3639800, 020377832, 8063429, 8860322 ####[address] [address] Lymphocytes/Leukocyte s Auto Pure number fraction (Bld) 1.4 E9/L Normal 1.0-4.0 [facility] Comment on above: Order Comment: Order Added by Discern Expert. Performed By: #### 1 0110055, 8844666, 3261220, 4446330, 176360207, 4849863, 7392830 ####[place] [address] [place] [address] Monocytes/100 WBC Auto (Bld) 12.3 % Normal 4.0-14.0 [facility] Comment on above: Order Comment: Order Added by Discern Expert. Performed By: #### 1 2210246, 8347684, 3589936, 3800768, 147957695, 7529001, 9909584 ####[facility] [address] [place] [address] Monocytes/Leukocytes Auto Pure number fraction (Bld) 1.2 E9/L High 0.2-1.0 [facility] Comment on above: Order Comment: Order Added by Discern Expert. Performed By: #### 1 0958543, 9122825, 2449741, 2892840, 204285974, 3509348, 6292777 ####[place] [address] [place] [address] Neutrophils/100 WBC Auto (Bld) 72.5 % Normal 36.0-75.0 [facility] Comment on above: Order Comment: Order Added by Discern Expert. Performed By: #### 1 9912130, 6169795, 2193726, 9755832, 691246756, 0708250, 3124869 ####[place] [address] [place] [address] Neutrophils/Leukocyte s Auto Pure number fraction (Bld) 7.3 E9/L Normal 2.0-7.5 [facility] Comment on above: Order Comment: Order Added by Discern Expert. Performed By: #### 1 6449310, 6182192, 7715313, 6431961, 131580563, 0409694, 5041934 ####[place] [address] [place] [address] BUNon 07-13-2018 Urea nitrogen mass conc 14 mg/dL Normal 5-21 [facility] Comment on above: Performed By: #### 1 1298068, 4094832, 9223409, 6854709, 676674826, 9817302, 0278986 ####[place] [address] [place] [address] CBC w/ Auto Diffon 8 Erythrocyte distribution width Auto Ratio (RBC) 14.2 % Normal 10.9-14.2 [facility] Comment on above: Performed By: #### 1 7254906, 4687545, 5462422, 4835887, 036933972, 5638150, 2354397 ####[facility] [address] [place] [address] Hematocrit Auto Volume Fraction (Bld) 33.8 % Low 34.0-46.0 [facility] Comment on above: Performed By: #### 1 4113796, 7146523, 5440773, 6150232, 166738413, 2921246, 8656228 ####[facility] [address] [place] [address] Hemoglobin mass conc (Bld) 11.5 g/dL Low 12.0-16.0 [facility] Comment on above: Performed By: #### 1 2206339, 6202754, 9966152, 1928900, 760324393, 5345122, 2909235 ####[place] [address] MCH Auto Entitic mass (RBC) 28.4 pg Normal 27.0-34.0 [facility] Comment on above: Performed By: #### 1 3541695, 6009627, 4073104, 4616049, 939013823, 3813316, 2297698 ####[place] [address] MCHC Auto mass conc (RBC) 34.0 g/dL Normal 31.4-39.3 [facility] Comment on above: Performed By: #### 1 4744618, 8604406, 4791811, 1235031, 187648201, 2037381, 5852093 ####[facility] [address] [place] [address] MCV Auto Entitic volume (RBC) 83.3 fL Normal 80.0-100.0 [facility] Comment on above: Performed By: #### 1 2466490, 5731922, 8146500, 8807979, 451125152, 1589417, 8276010 ####[place] [address] [place] [address] Platelet mean volume Auto Entitic volume (Bld) 8.6 fL Normal 6.4-10.8 [facility] Comment on above: Performed By: #### 1 9892914, 5277492, 0948510, 3362152, 029819806, 2069778, 9287613 ####[facility] [address] [place] [address] Platelets Auto #/vol (Bld) 260.0 E9/L Normal 150.0-500. 0 [facility] Comment on above: Performed By: #### 1 6764649, 6565072, 0286652, 9362986, 447556117, 2296264, 6713832 ####[facility] [address] [place] [address] RBC Auto #/vol (Bld) 4.0 E12/L Low 4.3-5.9 [facility] Comment on above: Performed By: #### 1 1023088, 0761968, 7527267, 9300521, 286824458, 6418747, 8525397 ####[facility] [address] [place] [address] WBC corrected for nucl RBC Auto #/vol (Bld) 10.1 E9/L Normal 4.0-11.0 [facility] Comment on above: Performed By: #### 1 0486088, 7881862, 5461280, 7194676, 787937461, 1598760, 6280025 ####[facility] [address] [place] [address] Creatinineon 07-13-2018 Creatinine mass conc 0.8 mg/dL Normal 0.5-1.3 [facility] Comment on above: Performed By: #### 1 1281371, 2014293, 0790238, 1541939, 459702774, 4143472, 2124075 ####[facility] [address] [place] [address] Interdisciplinary Note - Hubert e Manageron 07-13-2018 Interdisciplinary Note - Outside Upholsterer Pt is awake and alert in involved in plan of care. PCP verified, and insurance information verified. DME discussed.Contact information provided and white board updated. Family present at this time, Pt previously rounded with Trupti RAM and DR. Pruett. pt is aware of anticiapted DC home today. Pt is set up with [facility] for [facility]. Dneies any further DC needs or concerns. Normal [facility] Interdisciplinary Note - Leann n [...] OT is planned, pt is participating in Jymeg230 program and will have PT at home per program. Normal [facility] Lyteson 07-13-2018 Anion gap 3 molar conc 11 mmol/L Normal 6-16 [facility] Comment on above: Performed By: #### 1 2908967, 9048422, 9089018, 9108068, 836186426, 3470516, 9746340 ####[facility] [address] [place] [address] Chloride molar conc 95 mmol/L Low 101-111 [facility] Comment on above: Performed By: #### 1 8611084, 1754523, 9654163, 6029376, 609867596, 3673228, 3126936 ####[facility] [address] [place] [address] CO2 molar conc 29 mmol/L Normal 21-31 [facility] Comment on above: Performed By: #### 1 2232285, 9296589, 7811118, 6308748, 178854061, 5043374, 2993015 ####[facility] [address] [place] [address] Potassium molar conc 4.0 mmol/L Normal 3.5-5.3 [facility] Comment on above: Performed By: #### 1 3427410, 4699590, 8129162, 9455571, 053297334, 5811803, 9044701 ####[facility] [address] [place] [address] Sodium molar conc 131 mmol/L Low 135-145 [facility] Comment on above: Performed By: #### 1 5724672, 0704031, 9179613, 9688306, 990158527, 6869732, 6976949 ####[facility] [address] [place] [address] Operative Reporton 8 Operative Report Date of [...] multiple injections and joint fluid therapy. X-raysdemonstrate grti-yz-eisn medial joint space loss. Please refer to [...] postoperative x-rays are satisfactory.Abrahan Pruett D.O.glsDictated: 07/12/2018 #[id number]: 07/13/2018 #[id number]: Abrahan Pruett D.O. [facility] Comment on above: Result Comment: Elec [...] made to ensure accuracy, however, inadvertently computerized day porter mistakes may be present.Subjective Patient states that [...] Dry, not intact. Integumentary exam: Right knee Yevs wrap and ice pack intact, surgical line [...] Lymph Auto: 14.2 % (07/13/18 05:29:00 EST) [place] Auto: 12.3 % (07/13/18 05:29:00 EST) Eos Auto: 0.7 % (07/13/18 05:29:00 EST) Basophil Auto: 0.3 % (07/13/18 05:29:00 EST) Neutro Absolute: 7.3 E9/L (07/13/18 05:29:00 EST) Lymph Absolute: 1.4 E9/L (07/13/18 05:29:00 EST) [place] Absolute: 1.2 E9/L High (07/13/18 05:29:00 EST) [...] High (07/13/18 08:03:00 EST) POC Device SN: [id number] (07/13/18 08:03:00 EST) POC Username: GALDINO SONI [...] 8% Susp-Oral, 30 mL, Oral, BID, PRN [place] 5/325 Tab, 2 tab(s), Oral, q4hr, PRN [place] 5/325 Tab, 1 tab(s), Oral, q4hr, PRN [...] MDI, 2 puff(s), Inhalation, QID, PRN Normal [facility] Comment on above: Result Comment: Elec tronically Signed By: Trupti SCHMIDT\.br\Date and Time Signed: 07/13/18 10:54 EST\.br\Electronically Co-Signed By: Suzy LEO MD\.br\Date and Time Co-Signed: 07/13/18 11:23 EST eGFRon 07-13-2018 GFR/1.73 sq M predicted among blacks MDRD vol rate/area (S/P/Bld) mL/min/{1.73_m2} Normal >=59 [facility] Comment on above: Order Comment: Order added by Discern Expert. Result Comment: eGFR is race adjusted. AA=. Performed By: #### 1 5037255, 8044537, 6300352, 0074490, 349485750, 2440150, 3185340 ####[facility] [address] [place] [address] GFR/1.73 sq M predicted among non-blacks MDRD vol rate/area (S/P/Bld) mL/min/{1.73_m2} Normal >=59 [facility] Comment on above: Order Comment: Order added by Discern Expert. Result Comment: Spring Tier elin kidney disease could be indicated at eGFR's of less than 60 mL/min/1.73m2. Kidney failure is indicated at less than 15 mL/min/1.73m2. Performed By: #### 1 7055965, 5116008, 9989926, 2684664, 215875508, 5423940, 6105679 ####[facility] [address] [place] [address] ABO/Rhon 07-12-2018 ABO/Rh Positive Invalid Interpretation Code [facility] Comment on above: Performed By: #### 1 8977044, 0137145, 68327330, 36660228 ####[facility] [address] [place] [address] ABO/Rh History Checkon 07-12 ABO/Rh History Check Verified Hx Blood Type Normal [facility] Comment on above: Performed By: #### 1 4014414, 0565249, 55257052, 88850202 ####[facility] [address] [place] [address] ABSCon 07-12-2018 ABSC Gel Interp Negative Normal [facility] Comment on above: Performed By: #### 1 4391380, 4481746, 95338197, 20684881 ####[facility] [address] [place] [address] Blood Bank ID#on 07-12-2018 BBID# [id number] Invalid Interpretation Code [facility] Comment on above: Performed By: #### 1 8505000, 9598583, 04389081, 75579715 ####[facility] [address] [place] [address] Consultation Noteon 07-12-20 Consultation Note Chief Complaint [...] made to ensure accuracy, however, inadvertently computerized day porter mistakes may be present.Attestation Case reviewed and [...] 8% Susp-Oral, 30 mL, Oral, BID, PRN [place] 5/325 Tab, 2 tab(s), Oral, q4hr, PRN [place] 5/325 Tab, 1 tab(s), Oral, q4hr, PRN [...] High (07/12/18 11:53:00 EST) POC Device SN: [id number] (07/12/18 11:53:00 EST) POC Username: POC Username [...] recent placement. Signed By: Issa Agudelo MD [facility] Comment on above: Result Comment: Elec [...] 360 program and will need [facility] at discharge. Pt is agreeable with this. Verified PCP and insurance, discussed INPT status. Pt denies any questions or concerns about dc plans. Whiteboard updated. Normal [facility] Interdisciplinary Note - PTo n 07-12-2018 Interdisciplinary Note - PT PT Evaluation completed with an AM PAC score of 17/24. Pt performing bed mobility with SBA and transfers with CGA. Pt was able to ambulate 65 feet with FWW with CGA. Will follow daily. Please see PT treatment note for further recommendations Normal [facility] Main OR PACU I Recordon 06-29 Main OR PACU I Record PACU Phase I Docum ent Type FT Summary Primary Physician: Abrahan Pruett DO Finalized Date/Time: 07/12/18 12:16:59 Pt. Name: MAVIS PICKARD Evelia Delcid./Sex: 1960 Female Med Rec #: [id number] Physician: Abrahan Pruett DO Financial #: [id number] Pt. Type: I Room/Bed: N316/01 Admit/Disch: 07/12/18 [...] By: Clementina Wilks RN 07/12/18 12:16 Normal [facility] Main OR Preoperative Recordo n 07-12-2018 Main OR Preoperative Record PreOp Document Type FT Summary Primary Physician: Abrahan Pruett DO Finalized Date/Time: 07/12/18 08:26:12 Pt. Name: MAVIS PICKARD/Sex: 1960 Female Med Rec #: [id number] Physician: Abrahan Pruett DO Financial #: [id number] Pt. Type: A Room/Bed: [place] [address] Admit/Disch: 07/12/18 05:38:12 - Institution: Case Times [...] By: Latrice Harrington RN 07/12/18 08:26 Normal [facility] Operative Reporton 8 Operative Report [...] the proposed procedure.Yoni Noland Jr., TaviaglsDictated: 07/12/2018 #[id number]: 07/12/2018 #[id number]: Yoni Noland Jr., D.O. 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 It is therefore advised not to drive until after your first office visit following surgeryFOLLOW-UP OFFICE VISIT: Alina Pruett D.O.Revised: 2010 [facility] Progress Note-Physicianon Protein mass conc Patient: [...] [F] 0.4 mg 0.2 mL, IV Push, t6rgsowmnqrjagnzu 25 mg/mL Inj [F] 12.5 mg 0.5 mL, IV Push, q2min Problem list: All ProblemsDiabetes mellitus, insulin dependent (IDDM), controlled / SNOMED CT 938858993 / ConfirmedAsthma / SNOMED CT 669392909 / ConfirmedLocalized osteoarthritis of knee / SNOMED CT 148528340 / Confirmed, Active Problems (3)Asthma Diabetes mellitus, insulin dependent (IDDM), controlled Localized osteoarthritis of knee Histories Past Medical History: No active or resolved past medical history items have been selected or recorded. Family History: HypothyroidismSisterPrimar y malignant neoplasm of lungMotherPrimary malignant neoplasm of female genital organMotherDiabetes mellitus type 2Father Procedure history: Endometrial ablation (949335637).achilles tendon lengthening, left. Social History Social & Psychosocial WsummgJqonsji71/03/2018 Risk Assessment: Low RiskSubstance Abuse07/01/2018 Risk Assessment: Denies Substance XjbkvYxqqttk60/03/2018 Risk Assessment: Denies Tobacco Use. Physical Examination [...] Results review: No qualifying data available. Plan [place] [employer] Anesthesiologists (ASA) physical status classification: Class III. Anesthetic Preoperative Plan Anesthesia: Regional (Spinal, ADDUCTOR CANAL BLOCK). Anesthetic plan, risks, benefits, and alternatives discussed with the patient and/or family. Pt. and/or family present and agree to proceed as planned.. Discussed the importance of abstaining from tobacco products, and offered counseling if pt. desired.. Normal [facility] Comment on above: Result Comment: Elec tronically Signed By: Ligia DUKE DO, Yoni Grimm.kevan\Date and Time Signed: 07/12/18 08:54 EST UA With Cult Reflexon 2017 Bilirubin Ql (U) Negative Normal Negative [facility] Comment on above: Performed By: #### 1 [id number] ####[facility] [address] [place] [facility] [place] [address] Clarity Nom (U) CLEAR Normal Clear [facility] Comment on above: Performed By: #### 1 [id number] ####[facility] [address] [place] [address] Color Auto Nom (U) YELLOW Normal Yellow [facility] Comment on above: Performed By: #### 1 [id number] ####[facility] [address] [place] [facility] [place] [address] Epithelial cells.squamous LM.HPF #/area (Urine sed) 0-2 Normal 0-2 [facility] Comment on above: Performed By: #### 1 [id number] ####[facility] [address]rrfnj[address] [address] Glucose Test strip mass conc (U) Negative Normal Negative [facility] Comment on above: Performed By: #### 1 [id number] ####[facility] T[address]ns[address] [facility] [place] [address] Hemoglobin Test strip Ql (U) Negative Normal Negative [facility] Comment on above: Performed By: #### 1 [id number] ####[facility] Lrwbmv[address]Norm[address] [place] [address] Ketones mass conc (U) Negative Normal Negative [facility] Comment on above: Performed By: #### 1 6908631 ####[facility] [address]oxrnhpmef[address] [place] [address] Grimsley.plasma/Lithiu m.RBC mass ratio (Bld) 0-3 Normal 0-3 [facility] Comment on above: Performed By: #### 1 [id number] ####[facility] [address] [place] [address] Mucus LM Ql (Urine sed) TRACE Normal [facility] Comment on above: Performed By: #### 1 7809531 ####[address] [address] Nitrite Test strip Ql (U) Negative Normal Negative [facility] Comment on above: Performed By: #### 1 [id number] ####[address] [address] pH Test strip (U) 5.5 [pH] Invalid Interpretation Code 5.0-9.0 [facility] Comment on above: Performed By: #### 1 [id number] ####[address] [address] Protein mass conc (U) Negative Normal Negative [facility] Comment on above: Performed By: #### 1 [id number] ####[address] [address] Specific gravity Relative Density (U) >=1.030 Invalid Interpretation Code 1.005-1.03 0 [facility] Comment on above: Performed By: #### 1 [id number] ####[address] [address] UA Spec Desc Salguero Normal [facility] Comment on above: Performed By: #### 1 [id number] ####[address] [address] Urobilinogen Test strip Qn (U) 0.2 {Brittany'U}/dL Normal 0.0-1.0 [facility] Comment on above: Performed By: #### 1 [id number] ####[address] [address] WBC Auto Ql (U) Negative Normal Negative [facility] Comment on above: Performed By: #### 1 5482295 ####[address] [address] WBC LM.HPF #/area (Urine sed) 0-5 Normal 0-5 [facility] Comment on above: Performed By: #### 1 [id number] ####[facility] [address] [place] [address] XR Knee 1 or 2 Views Righton [...] MD Transcribed by: DENNY Technologist: MARAL Diaz [facility] Coding Summary.on 07-03-2018 Coding Summary. CODING DATE: FINAL [facility] STATUS: Home (Routine DC) PAYOR: Sulma [...] Nesbitt CphT Date Saved: 07/02/2018 09:07 am [facility] Coding Summary. CODING DATE: FINAL [facility] STATUS: Home (Routine DC) PAYOR: Sulma [...] CphT Date Saved: 07/02/2018 09:07 am Normal [facility] ABO/Rhon 07-02-2018 ABO/Rh Positive Invalid Interpretation Code [facility] Comment on above: Performed By: #### 2 [id number] ####[facility] [address] [place] [address] BUNon 07-02-2018 Urea nitrogen mass conc 12 mg/dL Normal 5-21 [facility] Comment on above: Performed By: #### 1 5591405, 7365433, 5682267, 5909293, 984460375, 4169562, 3578730 ####[facility] [address] [place] [address] CBC w/Indiceson 07-02-2018 Erythrocyte distribution width Auto Ratio (RBC) 14.2 % Normal 10.9-14.2 [facility] Comment on above: Performed By: #### 1 5950970, 8706304, 1008381, 6828576, 965315428, 7982699, 6021733 ####[facility] [address] [place] [address] Hematocrit Auto Volume Fraction (Bld) 38.7 % Normal 34.0-46.0 [facility] Comment on above: Performed By: #### 1 9186542, 4562424, 4735693, 3154921, 297507642, 4414502, 1284751 ####[facility] [address] [place] [address] Hemoglobin mass conc (Bld) 13.0 g/dL Normal 12.0-16.0 [facility] Comment on above: Performed By: #### 1 3550122, 2480644, 7706683, 8616340, 444413580, 0862145, 7337421 ####[facility] [address] [place] [address] MCH Auto Entitic mass (RBC) 27.8 pg Normal 27.0-34.0 [facility] Comment on above: Performed By: #### 1 0012256, 1511255, 1073087, 7326059, 208436478, 2435271, 3673944 ####[address] [place] [address] MCHC Auto mass conc (RBC) 33.5 g/dL Normal 31.4-39.3 [facility] Comment on above: Performed By: #### 1 8944751, 4994754, 3053179, 2517607, 826795806, 6786008, 7488848 ####[place] [address] MCV Auto Entitic volume (RBC) 83.0 fL Normal 80.0-100.0 [facility] Comment on above: Performed By: #### 1 0724977, 8567374, 0482227, 2731095, 495306124, 9297085, 3366719 ####[place] [address] Platelet mean volume Auto Entitic volume (Bld) 9.1 fL Normal 6.4-10.8 [facility] Comment on above: Performed By: #### 1 9000778, 1840440, 3954361, 4298679, 314942842, 9003419, 6012692 ####[place] [address] Platelets Auto #/vol (Bld) 282.0 E9/L Normal 150.0-500. 0 [facility] Comment on above: Performed By: #### 1 9507037, 8503264, 8127541, 6480719, 457179906, 8296434, 5903188 ####[address] [address] RBC Auto #/vol (Bld) 4.7 E12/L Normal 4.3-5.9 [facility] Comment on above: Performed By: #### 1 6873875, 9770858, 1198146, 0344881, 085314236, 3236648, 6478240 ####[facility] [address] [place] [address] WBC corrected for nucl RBC Auto #/vol (Bld) 8.0 E9/L Normal 4.0-11.0 [facility] Comment on above: Performed By: #### 1 2704058, 5863274, 1644004, 1414844, 823101362, 4435750, 0361570 ####[facility] [address] [place] [address] Creatinineon 07-02-2018 Creatinine mass conc 0.7 mg/dL Normal 0.5-1.3 [facility] Comment on above: Performed By: #### 1 3541222, 5557671, 6300746, 5022553, 869116788, 6047491, 2879450 ####[facility] [address] [place] [address] Glu Fastingon 07-02-2018 Glucose mass conc 163 mg/dL High 55-99 [facility] Comment on above: Performed By: #### 1 0221945, 0411091, 9264009, 7649416, 799169611, 7952031, 3786770 ####[facility] [address] [place] [address] RzbX5hpd 07-02-2018 Hemoglobin A1c/Hemoglobin.total Calculated mass fraction (Bld) 9.3 % High <=5.9 [facility] Comment on above: Performed By: #### 1 4411549, 1590208, 5673249, 8622337, 799145870, 6167088, 0183095 ####[facility] [address] [place] [address] Lyteson 07-02-2018 Anion gap 3 molar conc 11 mmol/L Normal 6-16 [facility] Comment on above: Performed By: #### 1 0082377, 1905403, 7340285, 4267485, 034223728, 4446179, 0046079 ####[facility] [address] [place] [address] Chloride molar conc 99 mmol/L Low 101-111 [facility] Comment on above: Performed By: #### 1 0317336, 9753001, 5248827, 4951382, 461249011, 1360283, 6857984 ####[facility] [address] [place] [address] CO2 molar conc 28 mmol/L Normal 21-31 [facility] Comment on above: Performed By: #### 1 7923703, 3473027, 8845052, 4385616, 382755577, 0311066, 0463718 ####[facility] [address] [place] [address] Potassium molar conc 4.0 mmol/L Normal 3.5-5.3 [facility] Comment on above: Performed By: #### 1 3191357, 1181895, 9730437, 7024246, 599386953, 3569565, 1433193 ####[facility] [address] [place] [address] Sodium molar conc 134 mmol/L Low 135-145 [facility] Comment on above: Performed By: #### 1 5887897, 0726471, 8864511, 8920399, 268490813, 9175263, 0972528 ####[facility] [address] [place] [address] UA With Cult Reflexon 2017 Bilirubin Ql (U) Negative Normal Negative [facility] Comment on above: Performed By: #### 1 8386729 ####[facility] [address] [place] [address] Clarity Nom (U) CLEAR Normal Clear [facility] Comment on above: Performed By: #### 1 4001487 ####[facility] [address] [place] [address] Color Auto Nom (U) YELLOW Normal Yellow [facility] Comment on above: Performed By: #### 1 6420892 ####[facility] [address] [place] [address] Epithelial cells.squamous LM.HPF #/area (Urine sed) 0-2 Normal 0-2 [facility] Comment on above: Performed By: #### 1 3567765 ####[facility] [address] [place] [address] Glucose Test strip mass conc (U) Negative Normal Negative [facility] Comment on above: Performed By: #### 1 7252328 ####[facility] [address] [place] [address] Hemoglobin Test strip Ql (U) Negative Normal Negative [facility] Comment on above: Performed By: #### 1 7283438 ####[address] [address] Ketones mass conc (U) Negative Normal Negative [facility] Comment on above: Performed By: #### 1 1819893 ####[address] [address] Grimsley.plasma/Lithiu m.RBC mass ratio (Bld) 0-3 Normal 0-3 [facility] Comment on above: Performed By: #### 1 9344180 ####[facility] [address] [place] [address] Mucus LM Ql (Urine sed) TRACE Normal [facility] Comment on above: Performed By: #### 1 6442218 ####[facility] [address] [place] [address] Nitrite Test strip Ql (U) Negative Normal Negative [facility] Comment on above: Performed By: #### 1 3616323 ####[facility] [address] [place] [address] pH Test strip (U) 7.0 [pH] Invalid Interpretation Code 5.0-9.0 [facility] Comment on above: Performed By: #### 1 2024549 ####[facility] [address] [place] [address] Protein mass conc (U) Negative Normal Negative [facility] Comment on above: Performed By: #### 1 9345525 ####[facility] [address] [place] [address] Specific gravity Relative Density (U) 1.020 Invalid Interpretation Code 1.005-1.03 0 [facility] Comment on above: Performed By: #### 1 7161713 ####[facility] [address] [place] [address] UA Spec Desc Clean Catch Normal [facility] Comment on above: Performed By: #### 1 7245259 ####[facility] [address] [place] [address] Urobilinogen Test strip Qn (U) 0.2 {Brittany'U}/dL Normal 0.0-1.0 [facility] Comment on above: Performed By: #### 1 5331628 ####[facility] [address] [place] [address] WBC Auto Ql (U) Negative Normal Negative [facility] Comment on above: Performed By: #### 1 8985104 ####[facility] [address] [place] [address] WBC LM.HPF #/area (Urine sed) 0-5 Normal 0-5 [facility] Comment on above: Performed By: #### 1 3170943 ####[facility] [address] [place] [address] eGFRon 07-02-2018 GFR/1.73 sq M predicted among blacks MDRD vol rate/area (S/P/Bld) mL/min/{1.73_m2} Normal >=59 [facility] Comment on above: Order Comment: Order added by Discern Expert. Result Comment: eGFR is race adjusted. AA=. Performed By: #### 1 3405419, 7250583, 4972245, 8858232, 450262469, 5754853, 7309085 ####[facility] [address] [place] [address] GFR/1.73 sq M predicted among non-blacks MDRD vol rate/area (S/P/Bld) mL/min/{1.73_m2} Normal >=59 [facility] Comment on above: Order Comment: Order added by Discern Expert. Result Comment: Spring Tier elin kidney disease could be indicated at eGFR's of less than 60 mL/min/1.73m2. Kidney failure is indicated at less than 15 mL/min/1.73m2. Performed By: #### 1 3346441, 1201943, 1863785, 8084289, 854562685, 5783416, 1810310 ####[facility] [address] [place] [address] XR Chest 2 Viewson 8 XR Chest [...] M.D. Transcribed by: shama Technologist: DARBY Normal [facility] POINT OF CARE GLUCOSEon 06-30 Glucose mass conc 127 mg/dL Critically high 74-106 [facility] Comment on above: Performed By: #### P OCGLUC ####[facility] [address] [place] [address]Gerken Anai XR ANKLE LT 2Von 07-27-2017 XR ANKLE LT 2V [address] [place] [address] Patient: MAVIS PICKARD Exam Date: 07/27/2017DOB: 1960 Gender:F : JUSTINA Thorpe GIOTREVA Admission #: [id number] : Order #: [id number] HERE TO VIEW EXAM RADIOLOGY REPORT PROCEDURE: [...] Price M.D. on 07/27/2017 at 14:46 Normal [facility] XR ANKLE LT 2V [address] [place] [address] Patient: MAVIS PICKARD Exam Date: 07/27/2017DOB: 1960 Gender:F : JUSTINA MILLER Admission #: [id number] : Order #: [id number] HERE TO VIEW EXAM RADIOLOGY REPORT PROCEDURE: [...] M.D. on 07/27/2017 at 14:07 Normal [facility] PROF CHEM 8 (BAS METB)on Anion gap 15.6 mmol/L Normal [facility] Comment on above: Performed By: #### B MP ####[facility] [address] BUN/Creatinine Ratio 15.6 mg/mg Normal [facility] Comment on above: Performed By: #### B MP ####[facility] [address] Anai Calcium 9.4 mg/dL Normal 8.4-10.2 [facility] Comment on above: Performed By: #### B MP ####[facility] [address] [place] [address] An[place] Chloride 101 mmol/L Normal 98-107 [facility] Comment on above: Performed By: #### B MP ####[facility] [address] [place] [address] An[place] CO2 30.0 mmol/L Normal 22.0-30.0 [facility] Comment on above: Performed By: #### B MP ####[facility] [address] [place] [address] Anai Creatinine 0.82 mg/dL Normal 0.52-1.04 [facility] Comment on above: Performed By: #### B MP ####[facility] [address] [place] [address]Ger[place] Anai eGFR (non-black) mL/min/{1.73_m2} Normal >=60 [facility] Comment on above: Performed By: #### B MP ####[facility] [address] [place] [address] Anai Glucose mass conc 126 mg/dL Critically high 74-106 [facility] Comment on above: Performed By: #### B MP ####[facility] [address] [place] [address] Anai Potassium molar conc 4.3 mmol/L Normal 3.4-5.0 [facility] Comment on above: Performed By: #### B MP ####[facility] [address] [place] [address] Anai Sodium 142 mmol/L Normal 137-145 [facility] Comment on above: Performed By: #### B MP ####[facility] Eat[address] Anai Urea nitrogen 13.0 mg/dL Normal 7.0-17.0 [facility] Comment on above: Performed By: #### B MP ####[facility] [address] [place] [address] Anai GLYCOHEMOGLOBIN A1Con 2016 Glucose mass conc 229 mg/dL Normal [facility] Comment on above: Performed By: #### A 1C ####[facility] [address] [place], [place] [address]Ngodhd Anai Hemoglobin A1c/Hemoglobin.total mass fraction (Bld) 9.6 % Critically high <=6.0 [facility] Comment on above: Performed By: #### A 1C ####[facility] [address] [place] [address] An[place] PROF CHEM 8 (BAS METB)on Anion gap 12.2 mmol/L Normal [facility] Comment on above: Performed By: #### B MP ####[facility] [address] [place], [place] [address]Gerken Anai BUN/Creatinine Ratio 18.8 mg/mg Normal [facility] Comment on above: Performed By: #### B MP ####[facility] [address] [place], [place] [address]Gerken Anai Calcium 9.7 mg/dL Normal 8.4-10.2 [facility] Comment on above: Performed By: #### B MP ####[facility] [address] [place], [place] [address]Gerken Anai Chloride 99 mmol/L Normal 98-107 [facility] Comment on above: Performed By: #### B MP ####[facility] [address] [place] [address] Anai CO2 32.0 mmol/L Critically high 22.0-30.0 [facility] Comment on above: Performed By: #### B MP ####[facility] [address] [place], [place] [address]Gerken Anai Creatinine 0.81 mg/dL Normal 0.52-1.04 [facility] Comment on above: Performed By: #### B MP ####[facility] [address] [place], [place] [address]Gerken Anai eGFR (non-black) mL/min/{1.73_m2} Normal >=60 [facility] Comment on above: Performed By: #### B MP ####[facility] [address] [place], [place] [address]Ddzrnr Karen Glucose mass conc 126 mg/dL Critically high 74-106 [facility] Comment on above: Performed By: #### B MP ####[facility] [address] [place], [place] [address]Ypqsuz Anai Potassium molar conc 4.1 mmol/L Normal 3.4-5.0 [facility] Comment on above: Performed By: #### B MP ####[facility] [address] [place], [place] [address]Cdxcpr Anai Sodium 140 mmol/L Normal 137-145 [facility] Comment on above: Performed By: #### B MP ####[facility] [address] [place], [place] [address]Thzzpw Anai Urea nitrogen 15.0 mg/dL Normal 7.0-17.0 [facility] Comment on above: Performed By: #### B MP ####[facility] [address] [place], [place] [address] ANKLE LT WO CONon 017 CT ANKLE LT WO CON [address] [place] [address] Patient: MAVIS PICKARD Exam Date: 03/07/2017DOB: 1960 Gender:F : JUSTINA AmaliaEdu MILLER Admission #: [id number] : DR RASHAD TERAN Order #: [id number] HERE TO VIEW EXAM RADIOLOGY REPORT PROCEDURE: [...] Price M.D. on 03/07/2017 at 10:32 Normal [facility] Vital Signs Date Time Vital Sign Value Performing Clinician Facility 06-14-2023 08:30-0500 Body height 170.18 cm Rashad Mast Other [facility] Other 06-14-2023 08:30-0500 Body mass index (BMI) [Ratio] 36.18 kg/m2 Rashad Mast Other [facility] Other 06-14-2023 08:30-0500 Body temperature 97.6 [degF] Rashad Mast Other [facility] Other 06-14-2023 08:30-0500 Body weight 104.78 kg Rashad Mast Other [facility] Other 06-14-2023 08:30-0500 Diastolic blood pressure 78 mm[Hg] Rashad Mast Other [facility] Other 06-14-2023 08:30-0500 Respiratory rate 18 /min Rashad Mast Other [facility] Other 06-14-2023 08:30-0500 SaO2% (BldA) [Mass fraction] 96 % Rashad Mast Other [facility] Other 06-14-2023 08:30-0500 Systolic blood pressure 124 mm[Hg] Rashad Mast Other [facility] Other 06-03-2023 01:33-0400 Diastolic blood pressure 78 mm[Hg] DO Rashad Mast Work Phone: [facility] 06-03-2023 01:33-0400 Heart rate 75 /min DO Rashad Mast Work Phone: [facility] 06-03-2023 01:33-0400 Respiratory rate 16 /min DO Rashad Mast Work Phone: [facility] 06-03-2023 01:33-0400 SaO2% (BldA) [Mass fraction] 98 % DO Rashad Mast Work Phone: [facility] 06-03-2023 01:33-0400 Systolic blood pressure 140 mm[Hg] DO Rashad Mast Work Phone: [facility] 06-02-2023 21:56-0400 Body height 170.18 cm DO Rashad Mast Work Phone: [facility] 06-02-2023 21:56-0400 Body temperature 98.1 [degF] DO Rashad Mast Work Phone: [facility] 06-02-2023 21:56-0400 Body weight 116.57 kg DO Rashad Mast Work Phone: [facility] 05-21-2023 08:00-0400 Body height 170.18 cm Rashad Mast Other [facility] Other 05-21-2023 08:00-0400 Body mass index (BMI) [Ratio] 40.2 kg/m2 Rashad Mast Other [facility] Other 05-21-2023 08:00-0400 Body temperature 96.5 [degF] Rashad Mast Other [facility] Other 05-21-2023 08:00-0400 Body weight 116.44 kg Rashad Mast Other [facility] Other 05-21-2023 08:00-0400 Diastolic blood pressure 80 mm[Hg] Rashad Mast Other [facility] Other 05-21-2023 08:00-0400 Respiratory rate 18 /min Rashad Mast Other [facility] Other 05-21-2023 08:00-0400 SaO2% (BldA) [Mass fraction] 97 % Rashad Mast Other [facility] Other 05-21-2023 08:00-0400 Systolic blood pressure 124 mm[Hg] Rashad Mast Other [facility] Other 03-28-2023 08:53-0400 Body height 170.18 cm DO Rashad Mast Work Phone: [facility] 03-28-2023 08:53-0400 Body mass index (BMI) [Ratio] 40.7 kg/m2 DO Rashad Mast Work Phone: [facility] 03-28-2023 08:53-0400 Body weight 117.93 kg DO Rashad Mast Work Phone: [facility] 03-28-2023 08:47-0400 Body temperature 97.7 [degF] DO Rashad Mast Work Phone: [facility] 03-28-2023 08:47-0400 Diastolic blood pressure 83 mm[Hg] DO Rashad Mast Work Phone: [facility] 03-28-2023 08:47-0400 Heart rate 74 /min DO Rashad Mast Work Phone: [facility] 03-28-2023 08:47-0400 Respiratory rate 20 /min DO Rashad Mast Work Phone: [facility] 03-28-2023 08:47-0400 Systolic blood pressure 152 mm[Hg] DO Rashad Mast Work Phone: [facility] 02-26-2023 08:00-0400 Body height 170.18 cm Rashad Mast Other [facility] Other 02-26-2023 08:00-0400 Body mass index (BMI) [Ratio] 41.05 kg/m2 Rashad Mast Other [facility] Other 02-26-2023 08:00-0400 Body weight 118.89 kg Rashad Mast Other [facility] Other 02-26-2023 08:00-0400 Diastolic blood pressure 78 mm[Hg] Rashad Mast Other [facility] Other 02-26-2023 08:00-0400 Respiratory rate 18 /min Rashad Mast Other [facility] Other 02-26-2023 08:00-0400 SaO2% (BldA) [Mass fraction] 97 % Rashad Mast Other [facility] Other 02-26-2023 08:00-0400 Systolic blood pressure 140 mm[Hg] Rashad Mast Other [facility] Other 02-08-2023 10:00-0400 Body height 170.18 cm Rashad Mast Other [facility] Other 02-08-2023 10:00-0400 Body mass index (BMI) [Ratio] 40.91 kg/m2 Rashad Mast Other [facility] Other 07-13-2023 10:00-0400 Body temperature 97.6 [degF] Rashad Mast Other [facility] Other 02-08-2023 10:00-0400 Body weight 118.48 kg Rashad Mast Other [facility] Other 02-08-2023 10:00-0400 Diastolic blood pressure 68 mm[Hg] Rashad Mast Other [facility] Other 02-08-2023 10:00-0400 Respiratory rate 18 /min Rashad Mast Other [facility] Other 02-08-2023 10:00-0400 SaO2% (BldA) [Mass fraction] 98 % Rashad Mast Other [facility] Other 02-08-2023 10:00-0400 Systolic blood pressure 120 mm[Hg] Rashad Mast Other [facility] Other 10-16-2022 09:45-0400 Body height 170.18 cm Rashad Mast Other [facility] Other 10-16-2022 09:45-0400 Body mass index (BMI) [Ratio] 41.06 kg/m2 Rashad Mast Other [facility] Other 10-16-2022 09:45-0400 Body temperature 98.6 [degF] Rashad Mast Other [facility] Other 10-16-2022 09:45-0400 Body weight 118.93 kg Rashad Mast Other [facility] Other 10-16-2022 09:45-0400 Diastolic blood pressure 80 mm[Hg] Rashad Mast Other [facility] Other 10-16-2022 09:45-0400 Respiratory rate 18 /min Rashad Mast Other [facility] Other 10-16-2022 09:45-0400 SaO2% (BldA) [Mass fraction] 99 % Rashad Mast Other [facility] Other 10-16-2022 09:45-0400 Systolic blood pressure 122 mm[Hg] Rashad Mast Other [facility] Other 08-14-2022 09:15-0500 Body height 170.18 cm Rashad Mast Other [facility] Other 08-14-2022 09:15-0500 Body mass index (BMI) [Ratio] 41.22 kg/m2 Rashad Mast Other [facility] Other 08-14-2022 09:15-0500 Body temperature 96.7 [degF] Rashad Mast Other [facility] Other 08-14-2022 09:15-0500 Body weight 119.39 kg Rashad Mast Other [facility] Other 08-14-2022 09:15-0500 Diastolic blood pressure 80 mm[Hg] Rashad Mast Other [facility] Other 08-14-2022 09:15-0500 Respiratory rate 18 /min Rashad Mast Other [facility] Other 08-14-2022 09:15-0500 SaO2% (BldA) [Mass fraction] 96 % Rashad Mast Other [facility] Other 08-14-2022 09:15-0500 Systolic blood pressure 110 mm[Hg] Rashad Mast Other [facility] Other 06-26-2022 09:45-0500 Body height 170.18 cm Rashad Mast Other [facility] Other 06-26-2022 09:45-0500 Body mass index (BMI) [Ratio] 42.33 kg/m2 Rashad Mast Other [facility] Other 06-26-2022 09:45-0500 Body temperature 97.2 [degF] Rashad Mast Other [facility] Other 06-26-2022 09:45-0500 Body weight 122.61 kg Rashad Mast Other [facility] Other 06-26-2022 09:45-0500 Diastolic blood pressure 84 mm[Hg] Rashad Mast Other [facility] Other 06-26-2022 09:45-0500 Respiratory rate 18 /min Rashad Mast Other [facility] Other 06-26-2022 09:45-0500 SaO2% (BldA) [Mass fraction] 97 % Rashad Mast Other [facility] Other 06-26-2022 09:45-0500 Systolic blood pressure 124 mm[Hg] Rashad Mast Other [facility] Other 05-22-2022 11:45-0400 Body height 170.18 cm Rashad Mast Other [facility] Other 05-22-2022 11:45-0400 Body mass index (BMI) [Ratio] 42.66 kg/m2 Rashad Mast Other [facility] Other 05-22-2022 11:45-0400 Body temperature 97 [degF] Rashad Mast Other [facility] Other 05-22-2022 11:45-0400 Body weight 123.56 kg Rashad Mast Other [facility] Other 05-22-2022 11:45-0400 Diastolic blood pressure 76 mm[Hg] Rashad Mast Other [facility] Other 05-22-2022 11:45-0400 Respiratory rate 18 /min Rashad Mast Other [facility] Other 05-22-2022 11:45-0400 SaO2% (BldA) [Mass fraction] 96 % Rashad Mast Other [facility] Other 05-22-2022 11:45-0400 Systolic blood pressure 120 mm[Hg] Rashad Mast Other [facility] Other 03-27-2022 10:30-0400 Body height 170.18 cm Rashad Mast Other [facility] Other 03-27-2022 10:30-0400 Body mass index (BMI) [Ratio] 42.53 kg/m2 Rashad Mast Other [facility] Other 03-27-2022 10:30-0400 Body temperature 98.1 [degF] Rashad Mast Other [facility] Other 03-27-2022 10:30-0400 Body weight 123.2 kg Rashad Mast Other [facility] Other 03-27-2022 10:30-0400 Diastolic blood pressure 80 mm[Hg] Rashad Mast Other [facility] Other 03-27-2022 10:30-0400 Respiratory rate 18 /min Rashad Mast Other [facility] Other 03-27-2022 10:30-0400 SaO2% (BldA) [Mass fraction] 95 % Rashad Mast Other [facility] Other 03-27-2022 10:30-0400 Systolic blood pressure 110 mm[Hg] Rashad Mast Other [facility] Other 03-02-2022 17:15-0400 Body height 170.18 cm Rashad Mast Other [facility] Other 03-02-2022 17:15-0400 Body mass index (BMI) [Ratio] 41.23 kg/m2 Rashad Mast Other [facility] Other 03-02-2022 17:15-0400 Body temperature 97.7 [degF] Rashad Mast Other [facility] Other 03-02-2022 17:15-0400 Body weight 119.43 kg Rashad Mast Other [facility] Other 03-02-2022 17:15-0400 Diastolic blood pressure 80 mm[Hg] Rashad Mast Other [facility] Other 03-02-2022 17:15-0400 Respiratory rate 18 /min Rashad Mast Other [facility] Other 03-02-2022 17:15-0400 SaO2% (BldA) [Mass fraction] 97 % Rashad Mast Other [facility] Other 03-02-2022 17:15-0400 Systolic blood pressure 124 mm[Hg] Rashad Mast Other [facility] Other Encounters Encounter Date Encounter Type Care Provider Facility Start: 08-15-2023 End: 08-15-2023 ambulatory Rashad Mast Other [facility] Other Start: 08-15-2023 Telephone encounter Rashad Mast [facility] Start: 08-13-2023 End: 08-13-2023 ambulatory Rashad Mast Other [facility] Other Start: 08-13-2023 Nursing evaluation o f patient and report Rashad Mast [facility] Start: 06-18-2023 End: 06-18-2023 ambulatory BALTAZAR A VISCI Not Available Start: 06-14-2023 End: 06-14-2023 ambulatory Rashad Mast Other [facility] Other Start: 06-14-2023 Office outpatient visit 25 minutes Rashad Mast [facility] Start: 06-14-2023 Telephone encounter Rashad Mast [facility] Start: 06-02-2023 End: 06-03-2023 Emergency department patient visit Rashad Pendleton Facility:[facility] Start: 06-02-2023 End: 06-03-2023 Emergency department patient visit DO Rashad Mast Work Phone: [facility] Work Phone: Start: 05-28-2023 End: 05-28-2023 ambulatory Rashad Mast Other [facility] Other Start: 05-28-2023 Telephone encounter Rashad Mast [facility] Start: 05-21-2023 End: 05-21-2023 ambulatory Rashad Mast Other [facility] Other Start: 05-21-2023 Office outpatient visit 25 minutes Rashad Mast [facility] Start: 03-28-2023 End: 03-28-2023 ambulatory Viki Copsey Facility:[facility] Start: 03-28-2023 End: 03-28-2023 ambulatory DO Rashad Mast Work Phone: [facility] Work Phone: Start: 03-28-2023 End: 03-28-2023 Discharged Recurring DO Rashad Mast Work Phone: [facility] [place] Work Phone: Start: 03-21-2023 End: 03-21-2023 ambulatory Rashad Mast Other [facility] Other Start: 03-21-2023 Telephone encounter Rashad Mast [facility] Start: 02-26-2023 End: 02-26-2023 ambulatory Rashad Mast Other [facility] Other Start: 02-26-2023 Office outpatient visit 15 minutes Rashad Mast [facility] Start: 02-09-2023 End: 02-09-2023 ambulatory Rashad Mast Other [facility] Other Start: 02-09-2023 Telephone encounter Rashad Mast [facility] Start: 02-08-2023 End: 02-08-2023 ambulatory Rashad Mast Other [facility] Other Start: 02-08-2023 Office outpatient visit 25 minutes Rashad Mast [facility] Start: 02-07-2023 End: 02-07-2023 ambulatory Rashad Mast - [facility] Facility:[facility] Start: 02-07-2023 End: 02-07-2023 ambulatory DO Rashad Mast Work Phone: [facility] Work Phone: Start: 02-07-2023 End: 02-07-2023 Patient encounter procedure DO Rashad Mast Work Phone: [facility] Start: 01-16-2023 End: 01-16-2023 ambulatory Rashad Mast Other [facility] Other Start: 01-16-2023 Telephone encounter Rashad Mast [facility] Start: 12-26-2022 End: 12-26-2022 ambulatory Rashad Mast Other [facility] Other Start: 12-26-2022 Telephone encounter Rashad Mast [facility] Start: 11-22-2022 End: 11-22-2022 ambulatory Rashad Mast Other [facility] Other Start: 11-22-2022 Telephone encounter Rashad Mast [facility] Start: 10-21-2022 End: 10-21-2022 ambulatory Baltazar Visci Facility:[facility] Start: 10-21-2022 End: 10-21-2022 ambulatory DO Rashad Mast Work Phone: [facility] Work Phone: Start: 10-21-2022 End: 10-21-2022 Patient encounter procedure DO Rashad Mast Work Phone: [facility] Work Phone: Start: 10-17-2022 End: 10-17-2022 ambulatory Rashad Mast Other [facility] Other Start: 10-17-2022 Telephone encounter Rashad Mast [facility] Start: 10-16-2022 End: 10-16-2022 ambulatory Rashad Mast Other [facility] Other Start: 10-16-2022 Office outpatient visit 25 minutes Rashad Mast [facility] Start: 10-05-2022 End: 10-05-2022 ambulatory Rashad Mast Other [facility] Other Start: 10-05-2022 Telephone encounter Rashad Mast [facility] Start: 08-14-2022 End: 08-14-2022 ambulatory Rashad Mast Other [facility] Other Start: 08-14-2022 Office outpatient visit 15 minutes Rashad Mast [facility] Start: 08-08-2022 End: 08-08-2022 ambulatory Rashad Mast Other [facility] Other Start: 08-08-2022 Telephone encounter Rashad Mast [facility] [place] Start: 06-26-2022 End: 06-26-2022 ambulatory Rashad Mast Other [facility] Other Start: 06-26-2022 Office outpatient visit 15 minutes Rashad Mast [facility] Start: 06-02-2022 End: 06-02-2022 ambulatory Rashad Mast Other [facility] Other Start: 06-02-2022 Telephone encounter Rashad Mast [facility] [place] Start: 05-22-2022 End: 05-22-2022 ambulatory Rashad Mast Other [facility] Other Start: 05-22-2022 Office outpatient visit 25 minutes Rashad Mast [facility] Start: 03-27-2022 End: 03-27-2022 ambulatory Rashad Mast Other [facility] Other Start: 03-27-2022 Office outpatient visit 25 minutes Rashad Mast [facility] Start: 03-06-2022 End: 03-06-2022 ambulatory Rashad Mast Other [facility] Other Start: 03-06-2022 Telephone encounter Rashad Mast [facility] Start: 03-02-2022 End: 03-02-2022 ambulatory Rashad Mast Other [facility] Other Start: 03-02-2022 Office outpatient visit 25 minutes Rashad Mast [facility] Start: 02-22-2022 End: 02-22-2022 ambulatory Rashad Mast Other [facility] Other Start: 02-22-2022 Telephone encounter Rashad Mast [facility] Start: 02-02-2022 End: 02-02-2022 ambulatory Rashad Mast Other [facility] Other Start: 02-02-2022 Telephone encounter Rashad Mast [facility] Start: 01-18-2022 End: 01-18-2022 ambulatory Rashad Mast Other [facility] Other Start: 01-18-2022 Telephone encounter Rashad Mast [facility] Start: 12-01-2021 End: 12-01-2021 ambulatory Rashad Mast Other [facility] Other Start: 12-01-2021 Telephone encounter Rashad Mast [facility] Start: 11-22-2021 End: 11-22-2021 ambulatory Rashad Mast Other [facility] Other Start: 11-22-2021 Telephone encounter Rashad Mast [facility] Start: 06-08-2021 End: 06-08-2021 ambulatory Rashad Mast Other [facility] Other Start: 06-08-2021 Telephone encounter Rashad Mast [facility] Start: 05-18-2021 Telephone encounter Rashad Mast [facility] Start: 07-15-2018 End: 07-26-2018 Patient encounter procedure RASHAD MAST [place] Start: 07-12-2018 End: 07-13-2018 Evaluation and management of inpatient Abrahan Pruett Facility[place] Start: 07-02-2018 End: 07-03-2018 Patient encounter procedure Abrahan Pruett [facility] Start: 07-27-2017 End: 07-27-2017 Ambulatory [facility] Facility:[facility] Start: 07-17-2017 End: 07-18-2017 Ambulatory [facility] Facility:[facility] Start: 05-04-2017 Ambulatory [facility] Facili ty:[facility] Start: 04-18-2017 End: 04-19-2017 Ambulatory [facility] Facility:[facility] Start: 03-07-2017 End: 03-08-2017 Ambulatory [facility] Facility:[facility] Procedures Date Procedure Procedure Detail Performing Clinician Start: 06-02-2023 SARS-CoV-2, Influenz a & RSV (PCR) DO Rashad Mast Work Phone: Plan of Treatment Date Care Activity Detail Author Start: 06-02-2023 Plain chest X-ray XR chest 2V* [facility] Start: 06-02-2023 XR Chest 2 Views [facility] Start: 10-21-2022 Screening mammograph y of bilateral breasts MM screening mammo BI w/CAD [facility] Patient Education Bronchitis, Adult ED [facility] Work Phone: Patient referral [facility] Work Phone: Immunizations Immunization Date Immunization Notes Care Provider Lan de la cruz 08-13-2023 zoster vaccine recombinant Rashad Mast Other [facility] Other 05-21-2023 zoster vaccine recombinant Rashad Mast Other [facility] Other 05-21-2023 influenza, injectabl e, quadrivalent, preservative free Rashad Mast Other [facility] Other 05-25-2022 COVID-19 Pfizer (bivalent) Rashad Mast Other [facility] Other 05-25-2022 influenza, injectabl e, quadrivalent, preservative free Rashad Mast Other [facility] Other 03-22-2020 influenza, seasonal, injectable Rashad Mast Other [facility] Other 05-07-2019 influenza, seasonal, injectable Rashad Mast Other [facility] Other 09-29-2016 Toradol per 15 mg Rashad Mast Other [facility] Other 06-14-2016 influenza, injectabl e, quadrivalent, contains preservative Rashad Mast Other [facility] Other 05-02-2015 Toradol per 15 mg Rashad Mast Other [facility] Other Payers Date Payer Category Payer Self-pay [id number] 1960 Unknown [id number] [id number] [id number] 1960 Unknown [id number] 2.16.84 [id number] 1960 Unknown [id number] 2.16.84 [id number] 1960 Unknown [id number] 1959 Unknown [id number] Unknown [id number] 2.16.8 [id number] Unknown [id number] 2.16.8 [id number] Unknown [id number] 2.16.8 [id number] Unknown [id number] 2.16.8 [id number] Social History Date Type Detail Facility Unknown if ever smoked [facility] Other Sex Assigned At Sex Assigned At Bir th [facility] Other Start: 03-19-2021 End: 06-02-2023 Tobacco smoking status NHIS Never smoked tobacco (finding) [facility] Start: 1960 Sex Assigned At Female F [facility] Medical Equipment Procedure Code Equipment Code [...] how she does. Call if problems persist [facility] Other 10-30-2023 Evaluation note* Encounter Date Diagnosis Assessment Notes Treatment Notes Treatment Clinical Notes Apr, Unspecified asthma, uncomplicated (ICD-10 - J45.909) [facility] Other 10-23-2023 Evaluation note* Encounter Date Diagnosis [...] - J45.909) Currently quiet, continue present meds [facility] Other 08-30-2023 Progress note Author Viki Mcnulty [facility] March 28, 2023 8:53am Note Date/Time March 28, 2023 8: 53am [facility] [address] [place] [address] Wound Center Provider Note Signed Patient: Mavis Pickard MR#: [id number] : 1960 Acct:[id number] Age/Sex: 63 / F Copies to: Jeffry/PreceptorRashadEvelia Mcnulty APRN~ HPI Date of Visit Date of Visit: Date of Service: 03/28/2023 Time of Service: 08:50 Narrative HPI: 02/28/23 Mavis is a 62-year-old female presenting to [facility] wound care program for an initial [...] 2022 Right leg ulcer 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 Lives with:: Spouse Appetite Description: Within Normal Limits Who helps w/ dressing change?: Wound Care Dept Smoking Status: Never smoker [facility] Medical History (Updated 03/21/23 @ 09:33 by Viki Copsey, WASH OIL PUMP OPERATOR HELPER) Asthma Diabetes Leg edema, right Ulcer of [...] Stasis Ulcer Thickness: Skin Breakdown Bed Appearance: [place] Percent of Wound Bed Granulated/Red: 100 Percent [...] By: <Electronically signed by ABRIL Mcnulty> 03/28/2353 [facility] Work Phone: 1(249) 343-515308-23-2023 Progress note Author Viki Mcnulty [facility] March 21, 2023 9:34am Note Date/Time March 21, 2023 9: 34am [facility] [address] [place] [address] Wound Center Provider Note Signed Patient: Mavis Pickard MR#: [id number] : 1960 Acct:[id number] Age/Sex: 62 / F Copies to: Jeffry/PreceptorRashad APRN~ HPI Date of Visit Date of Visit: Date of Service: 03/21/2023 Time of Service: 09:32 Narrative HPI: 02/28/23 Mavis is a 62-year-old female presenting to [facility] wound care program for an initial [...] 2022 Right leg ulcer 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 Lives with:: Spouse Appetite Description: Within Normal Limits Who helps w/ dressing change?: Wound Care Dept Smoking Status: Never smoker [facility] Medical History (Updated 03/21/23 @ 09:33 [...] <Electronically signed by ABRIL Mcnulty> 03/21/23 0934 [facility] Work Phone: 1(580) 589-673908-02-2023 Progress note Author Viki Mcnulty [facility] February 28, 2023 11:36am Note Date/Time February 28, 2023 11: 36am [facility] [address] [place] [address] Wound Center Provider Note Signed Patient: Mavis Pickard MR#: [id number] : 1960 Acct:[id number] Age/Sex: 62 / F Copies to: Jeffry/PreceptorRashad DO-Evelia Mcnulty APRN~ HPI Date of Visit Date of Visit: Date of Service: 02/28/2023 Time of Service: 11:28 Narrative HPI: 02/28/23 Mavis is a 62-year-old female presenting to [facility] wound care program for an initial [...] 2022 Right leg ulcer 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 Lives with:: Spouse Appetite Description: Within Normal Limits Who helps w/ dressing change?: Wound Care Dept Smoking Status: Never smoker [facility] Medical History (Updated 02/28/23 @ 11:34 [...] 0.1 CM Sq: 1.000 Surrounding Tissue Appearance: [place] and Hyperpigmented Surrounding Tissue Temp: Warm Drainage [...] <Electronically signed by ABRIL Mcnulty> 02/28/23 1136 [facility] Work Phone: 1(802) 820-839907-31-2023 Evaluation note* Encounter Date Diagnosis Assessment Notes [...] nasal spray and see if that helps [facility] Other 07-13-2023 Evaluation note* Encounter Date Diagnosis [...] is doing. She is trying to get [facility] paperwork completed so that she does not [...] me in the future if problems arise [facility] Other 03-20-2023 Evaluation note* Encounter Date Diagnosis [...] now, warning signs reviewed. Call if problems [facility] Other 01-16-2023 Evaluation note* Encounter Date Diagnosis [...] Recheck in 2 months, sooner if problems [facility] Other 01-10-2023 Evaluation note* Encounter Date Diagnosis Assessment Notes Treatment Notes Treatment Clinical Notes Jul, Type 2 diabetes mellitus without complications (ICD-10 - E11.9) [facility] Other 11-28-2022 Evaluation note* Encounter Date Diagnosis [...] for now. Keep working on weight loss. [facility] Other 11-04-2022 Evaluation note* Encounter Date Diagnosis Assessment Notes Treatment Notes Treatment Clinical Notes May, Type 2 diabetes mellitus without complications (ICD-10 - E11.9) [facility] Other 10-24-2022 Evaluation note* Encounter Date Diagnosis [...] Continue present Rx, keep seeing the counselor. [facility] Other 08-29-2022 Evaluation note* Encounter Date Diagnosis [...] at next visit. Continue seeing the counselor [facility] Other 08-04-2022 Evaluation note* Encounter Date Diagnosis [...] this in the long run or not. [facility] Other 06-22-2022 Evaluation note* Encounter Date Diagnosis Assessment Notes Treatment Notes Treatment Clinical Notes Dec, Type 2 diabetes mellitus without complications (ICD-10 - E11.9) [facility] Other 10-20-2021 Evaluation note* Encounter Date Diagnosis Assessment Notes Treatment Notes Treatment Clinical Notes Apr, Type 2 diabetes mellitus without complications (ICD-10 - E11.9) [facility] Other Evaluation noteNo InformationNortBrightpearl Other Evaluation noteNo assessment information available [facility] Work Phone: Evaluation noteNoDNS:Net Other Evaluation note* Diagnosis Onset Date Resolution Status Diabetes chronic 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 Carolina 2019 Hospitalization History SEE ABOVE [facility] Other Histxyl general Narrative - Reported* Type Description Date Medical History diabetes mellitus Medical History asthma Medical History Depression Surgical History knee arthroscopy Surgical History rt ring finger amputation Surgical History BREAST BIOPSY RIGHT Surgical History RIGHT KNEE REPLACEMENT 06/2018 Surgical History colonoscopy - Dr. Carolina 2015 Hospitalization History SEE ABOVE [facility] [employer] Other History general [facility] - [facility] Other History general N[facility]ative - [facility] Other Summary Purpose Family History No Family [...] Wound of skin (T14.8 XXA) Referral Organization [facility] Family Rebekah Rabago Referring Provider First [...] and content) DATE CREATED AUTHOR 01/22/2018 [facility] DATE CREATED AUTHOR AUTHOR'S ORGANIZ ATION 07/27/2018 [facility] DATE CREATED AUTHOR AUTHOR'S ORGANIZ ATION 06/19/2023 [facility] EPIC DATE CREATED AUTHOR AUTHOR'S ORGANIZ ATION 09/07/2023 [facility] REASON FOR VISIT (unrecogniz ed section and content) Refill/ MetforminRefillNS/CA NCELLED APPTQuestion about booster vacc.refillRefill/LantusRefill7 MTH FOLLOW UPRefill/ Lantus3 week follow up1 month Follow upRefill/ Metformin1 month Follow upRefill/ lancets1 month Follow upnausea2 month Follow uplow BSRefill/ InhalerRefill/ Zofran3 month follow up/ sore on left legrt leg woundRefill/ZofranAWVAsthma flare upFR ERFR ER Follow up [id number] SHINGLE VACCINERefill/ Zofran Care Teams (unrecognized sec [...] BE BASED ON THE PRIMARY CLINICAL RECORDS. [employer] [facility]. provides no warranty or guarantee of the accuracy or completeness of information in this document.
== END 2023-10-08 08:22 | disposition home or self-care (01) ==
LOC: VC 08:21
PROVIDERS: PCP Radiology Diagnostic Radiology; Visit Provider Radiology Diagnostic Radiology
DX: I80.01 Phlebitis and thrombophlebitis of superficial vessels of right lower extremity (principal)
CPT/HCPCS: 93971; G0463